=== PATIENT | female | born 1975 | race African-American/Black ===

== ENCOUNTER 2017-03-13 10:04 | Inpatient (IN) ==
[2017-03-13] MEDS ORDERED: ZOFRAN ODT PO ONE (10:48)
[2017-03-13 12:01] LABS: BASO% 0.1 % (0.0-0.8); HEMATOCRIT 41.4 % (37.0-47.0); HEMOGLOBIN 13.8 g/dL (12.0-16.0); LYMPH# 0.88 X1000 (1.2-3.4); LYMPH% 7.3 % (20.5-51.1); MANUAL DIFF NEEDED? YES; MCH 26.5 PG (27-31); MCHC 33.3 g/dL (33-37); MCV 79.6 FL (81-99); MONO# 0.07 X1000 (0.11-0.59); MONO% 0.6 % (1.7-9.3); MPV 11.6 FL (7.4-10.4); PLT 335 X1000 (130-400)
[2017-03-13 12:18] LABS: ALBUMIN 4.4 g/dL (3.5-5.0); CALCIUM 9.7 mg/dL (8.8-10.2); POTASSIUM 4.1 mmol/L (3.5-5.1); TOTAL BILIRUBIN 0.28 mg/dL (0.20-1.00); TOTAL PROTEIN 8.1 g/dL (6.3-8.3)
[2017-03-13 12:44] LABS: LYMPHS 12 % (21-51); MONO 1 % (1-9)
[2017-03-13] MEDS ORDERED: NS 1,000 ML IV ONE (12:52)
[2017-03-13] MEDS ORDERED: TORADOL IV ONE (12:53)
[2017-03-13] MEDS ORDERED: PHENERGAN IM ONE (14:30)
--- NOTE | 2017-03-13 14:59 | Diag Imaging Result Doc PS360 ---
EXAM: CT ABD/PELVIS W/ IV CONT ONLY HISTORY: intractable nausea and vomiting TECHNIQUE: Dose reduction protocol COMPARISON: 07/24/2016 FINDINGS: The gallbladder has been removed. There is a [id number] sized hiatal hernia. Normal spleen, pancreas, liver, and adrenal glands. Normal enhancement of the kidneys. No hydronephrosis. Normal aorta. The urinary bladder is overly distended. No bowel obstruction. Mechanical device in the anterior subcutaneous tissues of the right lower abdomen with wires going into the midabdomen. Normal uterus. No abscess. IMPRESSION: 1.Cholecystectomy 2.Hiatal hernia 3.Matheny distended urinary bladder. No hydronephrosis. 4.No bowel obstruction. No abscess. Electronically signed by Hebert Soto 03/13/2017 2:57 PM
--- NOTE | 2017-03-13 15:44 | PROVIDER DOCUMENTATION ---
This chart was entered by Eugene Massey Scribe, acting as scribe for Dewayne Wen MD. HPI-Abdominal Pain/GI Problem - General Chief Complaint: Nausea/Vomiting Stated Complaint: VOMITING Time Seen by Provider: 03/13/17 10:17 Source: patient Allergies/Adverse Reactions: Patient Allergies Allergy/AdvReac Type Severity Reaction Status Date / Time No Known Allergies Allergy Verified 03/13/17 10:19 Home Medications: Home Medication List Medication Instructions Recorded Confirmed Last Taken Type Insulin Human Regular [Humulin R] 1 unit SUBQ DIRECTED 12/06/14 03/13/1710/28 21:00 History Promethazine [Phenergan] 25 mg IN Q6H PRN PRN #20 supp 02/11/16 03/13/17 Rx Zolpidem [Ambien] 10 mg PO HS PRN PRN #20 04/21/16 03/13/17 03/12/17 21:00 Rx Amlodipine [Norvasc] 10 mg PO DAILY #0 tablet 07/25/16 03/13/17 03/12/17 21:00 Rx Hydrocodone/APAP 10 mg/325 mg 1 each PO Q6H PRN PRN #0 tablet 07/25/16 03/13/17 Unknown Rx [Cambria-10] Insulin Glargine [Lantus] 20 unit SUBQ QHS #0 insuln.pen 07/25/16 03/13/1703/12 21:00 Rx - History of Present Illness-ABD Nature of Presenting Problems: patient is a 41 y/o F that presents with 24 hours of abdominal pain with n/v. denies fever/chills, diarrhea, or chest pain. Long standing history of GI issues and diabetes. Abdominal Pain Onset Location: reports: generalized abdomen Quality of Pain: reports: aching, sharp Severity in ED: reports: moderate Onset/Duration: reports: abrupt, last night Timing: reports: still present, constant, getting worse Activities at Onset: reports: none Modifying Factors: improves with: nothing Associated Symptoms: reports: nausea, vomiting, weakness. denies: back/neck pain, chest pain, diarrhea, fever/chills, genitourinary problems, headaches, shortness of breath Similar Symptoms Previously?: Yes Recently seen or treated by another doctor?: No Review of Systems - Adult - REVIEW OF SYSTEMS - ADULT Constitutional: denies: chills, fever Eyes: reports: no symptoms reported Ears, Nose, Mouth & Throat: reports: no symptoms reported Cardiovascular: denies: chest pain, palpitations, syncope Respiratory: denies: cough, shortness of breath, wheezing Gastrointestinal: reports: abdominal pain, nausea, vomiting. denies: hematemesis, rectal bleeding Genitourinary: denies: dysuria, frequency, hematuria, urgency Musculoskeletal: reports: muscle weakness. denies: joint pain, joint swelling Integumentary: reports: no symptoms reported Neurological: reports: no symptoms reported Psychiatric: reports: no symptoms reported Endocrine: reports: no symptoms reported Hematologic/Lymphatic: reports: no symptoms reported Allergic/Immunologic: reports: no symptoms reported All Other Systems: Reviewed and Negative Past History - Adult - PAST MEDICAL HISTORY-ADULT Review of Records: reports: Old Records Reviewed, Nursing Assessment Review, Medications Reviewed Cardiovascular: reports: HTN, hyperlipidemia Gastrointestinal: reports: GERD (with esophagitis and stenosis), GI bleed, ulcer , other (diabetic gastroparesis, erosive gastritis and esophagitis) Genitourinary: reports: other (ammenorrhea for 1 year) Neurological: reports: other (DM neuropathy) Psychiatric: reports: anxiety, depression Endocrine/Immune: reports: anemia, Diabetes Additional History: frequent ER visits - PRIOR SURGERIES/PROCEDURES Surgical/Procedure History: reports: cholecystectomy, indwelling device ( Portacath), other (gastric stimulator) - IMMUNIZATION STATUS Childhood Immunizations: See Nurse Assessment Flu Vaccine: See Nurse Assessment - FAMILY HISTORY Family History: reviewed, not pertinent - SOCIAL HISTORY Smoking: non-smoker Living Situation: family Physical Exam-General - PHYSICAL EXAM-ADULT Initial Vital Signs Reviewed: Yes - CONSTITUTIONAL General Appearance: alert, moderate distress, anxious - EYES Eyes: PERRL/EOMI, pink conjunctivae - HEAD, EARS, NOSE, MOUTH & THROAT HENMT: normocephalic/atraumatic, TMs normal, other (dry oral mucosa) - NECK Neck: full range of motion, normal inspection - RESPIRATORY Respiratory: lungs clear, normal breath sounds, no respiratory distress, no accessory muscle use - CARDIOVASCULAR Cardiovascular: no murmur, tachycardia - GASTROINTESTINAL (ABDOMEN) Abdominal Exam: normal bowel sounds, soft, no organomegaly, no pulsatile mass, tenderness (generalized) - MUSCULOSKELETAL Extremity: no pedal edema, normal capillary refill - SKIN Integumentary: normal color, warm/dry - NEUROLOGIC Neurologic: staff command and control officer II-XII nml as tested, no motor/sensory deficits - PSYCHIATRIC Psych/Mental Status: oriented x 3, anxious Progress - PLAN OF CARE/RESULTS Progress/Plan/Lab Results: Vital Signs - 8 hr 03/13/17 10:06 Temperature 97.5 F L Pulse Rate 109 H Respiratory Rate 16 Blood Pressure 186/118 O2 Sat by Pulse Oximetry 100 Orders Category Date Time Status CT ABD/PELVIS W/ IV CONT ONLY [CT] Stat Exams 03/13/17 11:22 Ordered AMYLASE [CHEM] Stat Lab 03/13/17 10:48 Uncollected CBC WITH DIFF [HEME] Stat Lab 03/13/17 10:48 Uncollected COMPREHENSIVE METABOLIC PANEL [CHEM] Stat Lab 03/13/17 10:48 Uncollected LIPASE [CHEM] Stat Lab 03/13/17 10:48 Uncollected Ondansetron Odt [Zofran Odt] Med 03/13/17 10:48 Discontinued 8 mg PO NOW ONE Vital Signs Temp Pulse Resp BP Pulse Ox 03/13/17 14:27 116 H 19 183/117 99 03/13/17 10:06 97.5 F L 109 H 16 186/118 100 No Known Allergies Allergy (Verified 03/13/17 10:19) Insulin Human Regular [Humulin R] 1 unit SUBQ DIRECTED 12/06/14 Promethazine [Phenergan] 25 mg IN Q6H PRN PRN #20 supp 02/11/16 Zolpidem [Ambien] 10 mg PO HS PRN PRN #20 04/21/16 Amlodipine [Norvasc] 10 mg PO DAILY #0 tablet 07/25/16 Hydrocodone/APAP 10 mg/325 mg [Cambria-10] 1 each PO Q6H PRN PRN #0 tablet Insulin Glargine [Lantus] 20 unit SUBQ QHS #0 insuln.pen 07/25/16 Laboratory 03/13/17 03/13/17 03/13/17 11:35 11:35 11:35 WBC 12.04 H RBC 5.20 Hgb 13.8 Hct 41.4 MCV 79.6 L MCH 26.5 L MCHC 33.3 RDW Std Deviation 15.3 H Plt Count 335 MPV 11.6 H Immature Gran % (Auto) 0.0 Neut % (Auto) 92.0 H Lymph % (Auto) 7.3 L [place] % (Auto) 0.6 L Eos % (Auto) 0.0 Baso % (Auto) 0.1 Immature Gran # (Auto) 0.00 Neut # (Auto) 11.08 H Lymph # (Auto) 0.88 L [place] # (Auto) 0.07 L Eos # (Auto) 0.00 Baso # (Auto) 0.01 Segmented Neutrophils 87 H Lymphocytes 12 L Monocytes 1 Sodium 149 H Potassium 4.1 Chloride 108 H Carbon Dioxide 21 L Anion Gap 20 BUN 24 H Creatinine 1.7 H Estimated GFR/1.73 m2 40 BUN/Creatinine Ratio 14 Glucose 300 H POC Glucose Calculated Osmolality 311 Calcium 9.7 Total Bilirubin 0.28 AST 19 ALT 10 Alkaline Phosphatase 163 H Total Protein 8.1 Albumin 4.4 Globulin 3.7 Albumin/Globulin Ratio 1.2 Amylase 757 H Lipase 23 Serum , Qual NEGATIVE 03/13/17 10:44 WBC RBC Hgb Hct MCV MCH MCHC RDW Std Deviation Plt Count MPV Immature Gran % (Auto) Neut % (Auto) Lymph % (Auto) [place] % (Auto) Eos % (Auto) Baso % (Auto) Immature Gran # (Auto) Neut # (Auto) Lymph # (Auto) [place] # (Auto) Eos # (Auto) Baso # (Auto) Segmented Neutrophils Lymphocytes Monocytes Sodium Potassium Chloride Carbon Dioxide Anion Gap BUN Creatinine Estimated GFR/1.73 m2 BUN/Creatinine Ratio Glucose POC Glucose 272 H Calculated Osmolality Calcium Total Bilirubin AST ALT Alkaline Phosphatase Total Protein Albumin Globulin Albumin/Globulin Ratio Amylase Lipase Serum , Qual Result Diagrams: 03/13/17 11:35 03/13/17 11:35 - CT/MRI 1 CT Study: Abdomen, Pelvis Impression: Abnormal CT Results: hital hernia,overly distended urinary bladder, cholecystectomy - CONSULTS/PCP/HOSPITALIST Notification #1 *Consult/PCP/Hospitalist*: Time Discussed: 15:42 Consult Disposition: Will see in ED, Admit Departure - Departure Date of Disposition Decision: 03/13/17 Time of Disposition Decision: 15:42 DIAGNOSIS: Gastroparesis, Intractable vomiting, Volume depletion, Hyperamylasemia Disposition: ADMITTED INPATIENT 09 Certified Medical Emergency: Emergent Condition: Stable Referrals and Follow-Ups: None,PCP [Primary Care Provider] - - Critical Care Note This patient required my direct & personal management of CC.: No Attestation - Physician/ GAUDENCIO Attestation The physician spent face to face time with patient:: Yes Advanced Practice Provider documentation review:: The physician spent face to face time with this patient and agrees with all MLP documentation, treatment, and medical decision making by the MLP. See provider notes for further information. This chart was documented by the indicated scribe, (Eugene Massey, Scribe) and accurately reflects the services I performed and decisions made by me, Dewayne Wen MD, as attested by the provider's signature.
[2017-03-13] MEDS ORDERED: PROTONIX 80 MG in NS 80 ML IV ONE (16:45)
[2017-03-13] MEDS ORDERED: PROTONIX 80 MG in NS 80 ML IV SCH (16:45)
[2017-03-13] MEDS ORDERED: ERYTHROMYCIN 250 MG in NS 150 ML IV ONE (16:46)
[2017-03-13] MEDS ORDERED: MORPHINE IV ONE (17:01)
[2017-03-13 17:23] LABS: URINE MICRO REVIEW NEEDED? NO; URINE SOURCE CATH
[2017-03-13 17:36] LABS: BILIRUBIN URINE NEGATIVE (NEGATIVE); BLOOD URINE SMALL (NEGATIVE); COLOR YELLOW; GLUCOSE URINE >1000 mg/dL (NEGATIVE); LEUKOCYTES URINE NEGATIVE (NEGATIVE); NITRITE URINE NEGATIVE (NEGATIVE); PH URINE 6.5; PROTEIN URINE 600 mg/dL (NEGATIVE); SP GRAVITY URINE 1.023; TURBIDITY URINE CLEAR (CLEAR); UR EPITHELIAL CELLS >10 /HPF (<10); URINE BACTERIA NEGATIVE /HPF; URINE CULTURE NEEDED? YES; UROBILINOGEN URINE NORMAL (NORMAL)
[2017-03-13] MEDS: REGLAN IV ONE (17:45)
[2017-03-13] MEDS: NS 1,000 ML IV SCH (17:48)
[2017-03-13] MEDS: ROCEPHIN 1 GM/NS 1 GM/50 ML IVPB IV SCH (17:50)
--- NOTE | 2017-03-13 18:08 | HISTORY AND PHYSICAL ---
PRIMARY CARE PHYSICIAN: Dr. Koo with the [facility]. HAZARDOUS MATERIAL TECHNICIAN: Franny Lewis MD. PRESENTING COMPLAINT: Nausea and vomiting. HISTORY OF PRESENTING COMPLAINT: Ms. Bobby is a 41-year-old, female who is very well known to our service. Patient was discharged from the hospital on 2016 after she was treated for DKA, acute kidney injury and UTI. Patient refers to have been relatively stable until 3 days ago when she started having abdominal discomfort, nausea, and vomiting which has been progressively getting worse to the point that patient is completely not tolerating anything p.o. since this morning. After vomiting multiple times she realized that whatever is coming out is bloody. Patient therefore decided to come to the emergency department where she was evaluated and we were requested to admit her because of p.o. intolerance and GI bleed. PAST MEDICAL HISTORY: 1. Severe diabetic gastroparesis. Patient has a pacemaker. 2. Poorly controlled insulin-dependent diabetes mellitus. 3. Hypertension. 4. Diabetic neuropathy. PAST SURGICAL HISTORY: 1. Cholecystectomy. 2. Gastric stimulator. 3. Port-a-Cath removal. FAMILY HISTORY: Diabetes. SOCIAL HISTORY: Patient denies any tobacco or alcohol use. Occasional marijuana user. ALLERGIES: None. HOME MEDICATIONS: 1. Insulin sliding scale. 2. Amlodipine 10 mg daily. 3. Insulin glargine 20 units subcutaneous daily. REVIEW OF SYSTEMS: A 14-point review of systems was conducted with the patient and unremarkable except for what is stated in the HPI. PHYSICAL EXAMINATION: VITAL SIGNS: Blood pressure is 183/117, pulse 116, respiration 19, temperature 97.5 degrees. GENERAL EXAMINATION: Ms. Bobby is a 41-year-old, female. She is in bed. HEENT: Mucosa is pink and moist. Anicteric. Acyanotic. NECK: Supple. I did not see any JVD. No carotid bruit. CHEST: Good air entry bilaterally. No crepitations. No rhonchi. No accessory muscle use. CARDIOVASCULAR: Slightly tachycardic but no murmurs, no rubs, no gallops. ABDOMEN: Soft. Mildly tender in the epigastrium. Bowel sounds are reduced. There is a pacemaker generator at the lower left anterior abdominal wall. EXTREMITIES: No pedal edema. CENTRAL NERVOUS SYSTEM: Patient is alert and oriented. No focal neurological deficit. The patient's sensorium is intact. Motor power is 5/5 in all extremities. There is no focal neurological deficit. Cranial nerves 2-12 have been grossly examined and they are unremarkable. LABORATORY DATA: WBC is 12.04, hemoglobin is 13.8, platelet count of 335,000, 87% of bands on peripheral smear. Sodium is 149, potassium is 4.1, chloride is 108, bicarbonate is 21, creatinine 1.7. Glucose is 300, amylase 757. test is negative. DIAGNOSTIC STUDIES: CT scan of the abdomen and pelvis was done which shows cholecystectomy, hiatal hernia, overly distended urinary bladder, no hydronephrosis, no bowel obstruction and no abscess. ASSESSMENT: Ms. Bobby is a 41-year-old, [place] female with multiple admissions to the hospital because of GI related symptoms who came in because of nausea and vomiting which is intractable and has been complicated with some coffee ground emesis. ASSESSMENT: 1. Intractable nausea and vomiting. 2. History of severe gastroparesis. 3. GI bleed likely due to underlying as well as esophagitis. Last EGD done by Dr. Lewis on 04/15/2016 and it showed severe esophagitis and some erosive gastritis. 4. Acute on chronic kidney disease. 5. Hyperamylasemia likely due to the current GI related issues. CT scan did not show any pancreatitis. I think if the gastroparesis gets controlled, the amylase will also get better. 6. Uncontrolled diabetes mellitus. We will continue the patient on sliding scale. 7. Volume depletion. We will start the patient on IV fluids. 8. Bladder retention. Patient does not have any symptoms which is indicative of probably underlying autonomic neuropathy from diabetes mellitus. We will in and out catheterize the patient, send a urine for analysis and reflex culture. Put the patient on oxybutynin when she is able to tolerate p.o. In general, we are going to keep the patient on the medical floor, keep her NPO, put her on PPI drip on schedule, erythromycin and Reglan, adequate hydration, consult GI and give further recommendations during hospital course. cc: MD SYDNEE John
[2017-03-13] MEDS ORDERED: APRESOLINE IV PRN (18:30)
[2017-03-13] MEDS: SODIUM CHLORIDE 0.9% INJ PRN (20:40)
[2017-03-13] MEDS: PHENERGAN IV PRN (20:40)
[2017-03-13] MEDS ORDERED: INSULIN PEN NEEDLES ONE (21:28)
[2017-03-13] MEDS: LANTUS SUBQ SCH (21:48)
[2017-03-13] MEDS: HUMULIN R SUBQ SCH (21:49)
[2017-03-14] MEDS: ATIVAN IV PRN ×2 (00:17→23:24)
[2017-03-14] MEDS: ERYTHROMYCIN 250 MG in NS 150 ML IV SCH ×3 (02:34→18:02)
[2017-03-14] MEDS: NS 1,000 ML IV SCH (04:10)
[2017-03-14] MEDS: PHENERGAN IV PRN ×2 (04:10→10:51)
[2017-03-14 05:58] LABS: MANUAL DIFF NEEDED? NO
[2017-03-14 06:09] LABS: EOS# 0.01 X1000 (0.0-0.7); EOS% 0.1 % (0.0-10.0); HEMATOCRIT 38.7 % (37.0-47.0); HEMOGLOBIN 12.7 g/dL (12.0-16.0); IMM GRAN# 0.02 X1000 (0.0-0.04); IMM GRAN% 0.2 % (0.0-0.5); LYMPH# 0.97 X1000 (1.2-3.4); LYMPH% 8.5 % (20.5-51.1); MCH 26.7 PG (27-31); MCHC 32.8 g/dL (33-37); MCV 81.3 FL (81-99); MONO# 0.84 X1000 (0.11-0.59); MONO% 7.4 % (1.7-9.3); NEUT% 83.8 % (42.2-75.2); PLT 332 X1000 (130-400); RBC 4.76 XMIL (4.2-5.4)
[2017-03-14 06:14] LABS: INR 1.06; PROTIME 11.2 Seconds (9.2-11.7)
[2017-03-14 06:31] LABS: ALBUMIN 3.5 g/dL (3.5-5.0); CALCIUM 8.4 mg/dL (8.8-10.2); MAGNESIUM 2.3 mg/dL (1.5-2.7); POTASSIUM 3.7 mmol/L (3.5-5.1); TOTAL BILIRUBIN 0.32 mg/dL (0.20-1.00)
[2017-03-14] MEDS: HUMULIN R SUBQ SCH ×4 (06:34→23:24)
[2017-03-14] MEDS: SODIUM CHLORIDE 0.9% INJ PRN (10:52)
[2017-03-14] MEDS ORDERED: SODIUM CHLORIDE 0.9% INJ SCH (15:30)
[2017-03-14] MEDS ORDERED: PROTONIX IV SCH (15:30)
--- NOTE | 2017-03-14 15:55 | PROGRESS NOTE ---
DATE: 03/14/2017 SUBJECTIVE: Still nauseous. There is a couple small teaspoon kind of areas in her emesis basin, they are kind of yellowish greenish colored. GI. Patient still nauseous but she does want try to take in some liquids so we will go ahead and process that. OBJECTIVE: Vital signs: Blood pressure 125/72, heart rate 90, respiratory 18, temperature 98.6 degrees. Cardiovascular: Regular rate and rhythm. Pulmonary: Bilateral breath sounds. Clear to auscultation. GI: Soft, nontender, nondistended. Bowel sounds are positive. LABORATORY DATA: White count 11, hemoglobin and hematocrit 12 and 38, platelets of 332,000. Sodium is 153, BUN, creatinine are 38 and 2.4, glucose is 263 . PROBLEM LIST: 1. Protracted nausea, vomiting, gastroparesis. We will continue Reglan. I think she is on erythromycin even and will continue to follow. 2. Gastrointestinal bleed. Will continue PPI although hemoglobin and hematocrit is stable and monitor closely. Dr. Lewis will evaluate tomorrow. 3. Acute kidney injury. She had some bladder retention issues for which I thought she had Green placed but her kidney function is it has been this high before, it is usually 1.5- 1.9 so it is a little higher today. We will keep an eye on her I's and O's. 4. Hypernatremia. We will continue fluids and follow. She is on half-normal saline at this point just because of her relative hypernatremia. We will continue monitor. 5. Diabetes. Will continue her Lantus and follow closely. I am going to maintain her on the Reglan for the time being. DISPOSITION: Pending her clinical course. Will continue to follow very closely. cc: Jermain Gregory MD
[2017-03-14] MEDS: 1/2 NS 1,000 ML IV SCH (16:45)
[2017-03-14] MEDS: REGLAN IV SCH (16:45)
[2017-03-14] MEDS: PEPCID IV SCH (17:25)
--- NOTE | 2017-03-14 17:56 | CONSULTATION ---
DATE OF CONSULTATION: 03/14/2017 CONSULTING PHYSICIAN: Larry Hernandez MD REASON FOR CONSULT: Gastroparesis. HISTORY: This patient is well known to our service. She has followed with Dr. 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 She has a history of diabetic gastroparesis, currently has a gastric pacemaker in place. She is being followed by [facility]. She presented to the hospital with nausea, vomiting. She tells me she has been doing well until yesterday she had a sudden onset of nausea and has been vomiting since then until she came to the emergency room and was treated. She denies any other GI symptoms. She has not had any abdominal pain or abdominal cramps. She did not run any fever or chills. She has not noticed any hematemesis or coughing or emesis. Her appetite has been poor after that. She has not been able to tolerate liquids. She has been able to tolerate sips of water though. She denies any dysphagia or odynophagia. She denies any constipation or diarrhea. Has not any blood or mucus in her stool. PAST MEDICAL HISTORY: Significant for diabetic gastroparesis status post gastric pacemaker. Diabetes, history of hypertension, depression. She also carries a diagnosis of peptic ulcer disease, gastroesophageal reflux disease, erosive esophagitis, Viky esophagitis and erosive gastroduodenitis. PAST SURGICAL HISTORY: She has a gastric pacemaker placed. Cholecystectomy. She has had a PEG tube placed earlier. Gastrojejunostomy tube placed earlier. MEDICATION: Prior to hospitalization, she has been on Ambien, Phenergan, Humulin R, Lantus, hydrocodone and Norvasc. ALLERGIES: No drug allergies. SOCIAL HISTORY: She does not smoke. She claims she does not drink and claims she has not had marijuana. She she lives by herself. FAMILY HISTORY: Noncontributory. REVIEW OF SYSTEMS: As per HPI as above. PHYSICAL EXAMINATION: General: A very pleasant female. She is lying in bed and resting comfortably on her side. Vitals: Temperature 98.7 degrees, pulse was 100 per minute, breathing at 20, blood pressure 152/77. She is 190 pounds. She is 5 feet 4 inches tall. HEENT: Head is atraumatic, normocephalic. Eyes: Conjunctivae normal. Sclerae anicteric. Nares are patent. No discharge. Mouth: Buccal mucosa is moist. Throat is normal. Neck: Supple no lymphadenopathy or thyromegaly. Chest: Bilaterally symmetrical. It is moving with respirations. Breath sounds audible bilaterally. No rhonchi or crepitations could be heard. Heart: S1 S2 audible. No murmur could be appreciated. Abdomen: Has got the gastric pacemaker placed on the right side of the umbilicus. Otherwise, abdomen is soft. It is nontender. I could not appreciate mass or visceromegaly. No ascites noted. Bowel sounds are audible. Extremities: No pedal edema, cyanosis or clubbing was noted. CUSTOMER RETENTION REPRESENTATIVE: Grossly intact. No sensory or motor deficit. LABORATORY: Reviewed, which showed WBC 11.3, hemoglobin 12.7, hematocrit 38.7, MCV 81.3, platelets 332,000. PT 11.2, INR 1.06. Sodium 153, potassium 3.7, chloride 115, bicarb is 20, BUN is 38, creatinine 2.4, glucose 263. Transaminases are normal. Urinalysis negative for urinary infection or UTI. IMPRESSION: This is a 41-year-old, female with known history of diabetic gastroparesis and uncontrolled diabetes, has presented once again with the same symptoms of nausea, vomiting. She has a gastric pacemaker in place, but despite that she presents with similar symptoms for gastroparesis. Although she denies having marijuana now, however, if she has done that and she is not admitting to it, cannabinoids induced vomiting is also a possibility other than gastroparesis. She has responded well to symptomatic treatment. She is currently on erythromycin and that has worked well for her. Since admission, she has had only 1 episode of emesis this morning which was clear and frothy liquid. Other than that, she is doing well. Symptoms have improved. I would continue the same at this point, and after reemphasizing to her that cannabinoid induced vomiting could be a possibility here as well and she should avoid using marijuana. Continue hydration. Her electrolytes show that she may be dehydrated. We will recheck her electrolytes and adjust fluids accordingly. Dr. Lewis will be the most available in the morning to bulk picker the case. cc: Raghav Ruggiero MD
[2017-03-14] MEDS: ROCEPHIN 1 GM/NS 1 GM/50 ML IVPB IV SCH (18:03)
[2017-03-14] MEDS: REGLAN IV ONE (18:07)
[2017-03-14] MEDS: LANTUS SUBQ SCH (23:24)
[2017-03-15] MEDS: SODIUM CHLORIDE 0.9% INJ PRN ×2 (00:15→19:14)
[2017-03-15] MEDS: PHENERGAN IV PRN ×3 (00:15→19:14)
[2017-03-15] MEDS: PEPCID IV SCH ×2 (02:54→16:40)
[2017-03-15] MEDS: ERYTHROMYCIN 250 MG in NS 150 ML IV SCH ×3 (02:54→17:54)
[2017-03-15] MEDS: REGLAN IV SCH ×2 (02:54→16:38)
[2017-03-15 06:21] LABS: HEMATOCRIT 33.5 % (37.0-47.0); HEMOGLOBIN 10.7 g/dL (12.0-16.0); MCHC 31.9 g/dL (33-37); MCV 84.4 FL (81-99); MPV 11.7 FL (7.4-10.4); RBC 3.97 XMIL (4.2-5.4)
[2017-03-15 06:25] LABS: POTASSIUM 3.8 mmol/L (3.5-5.1)
[2017-03-15] MEDS: 1/2 NS 1,000 ML IV SCH ×3 (06:46→23:15)
[2017-03-15] MEDS: HUMULIN R SUBQ SCH ×4 (06:47→23:14)
[2017-03-15] MEDS: ATIVAN IV PRN (08:57)
[2017-03-15] MEDS ORDERED: INSULIN PEN NEEDLES ONE (16:13)
[2017-03-15] MEDS ORDERED: LABETALOL IV PRN (16:36)
[2017-03-15] MEDS: SODIUM CHLORIDE 0.9% INJ SCH (16:40)
--- NOTE | 2017-03-15 16:56 | PROGRESS NOTE ---
DATE: 03/15/2017 SUBJECTIVE: The patient has still nausea and is requesting pain medication, specifically Dilaudid. She has had clear emesis. She reports persistent emesis but Dr. Lewis has reviewed notes and feels like she has had weight gain despite not being able to keep anything down. Weight is around 190. OBJECTIVE: Vital signs: Blood pressure 185/129, heart rate 102, respiratory 16, temperature 98.6 degrees. Cardiovascular: Regular rate and rhythm. Pulmonary: Bilateral breath sounds. Clear to auscultation. GI: Soft, nontender, nondistended. Bowel sounds are positive. Extremities: No clubbing or cyanosis. Lymphatics: No peripheral edema. Neurological: Nonfocal. LABORATORY DATA: Her white count is normal 10, hemoglobin and hematocrit 10 and 33, platelets 264,000. Chemistry: Her BUN and creatinine are down 36 and 2. That is down from 38 and 2.4. PROBLEM LIST: 1. Intractable nausea and vomiting secondary to gastroparesis versus drug related. Will continue Reglan. She is on erythromycin, p.r.n. medications, and follow. 2. Questionable gastrointestinal bleed. We will continue PPI. Follow hemoglobin and hematocrit. Dr. Lewis ordered a barium upper GI series for tomorrow. 3. Acute kidney injury. Her kidney function is improving with hydration. Continue to monitor closely. 4. Hypernatremia. This appears to be overall resolved. 5. Diabetes. Will continue Lantus sliding scale, medications, and follow. I will go ahead and check a urine drug screen to evaluate for possible underlying marijuana use which has been linked to cyclical nausea and emesis syndrome. At this point, she is on antibiotics but her testing has not revealed gross evidence of UTI. We will continue to monitor. I think we will probably hold further antibiotics for the time being. cc: Jermain Gregory MD
[2017-03-15 17:50] LABS: UR AMPHETAMINES QUAL NONE DETECTED (NONE DETECT); UR BARBITUATES QUAL NONE DETECTED (NONE DETECT); UR BENZODIAZEPIN QUAL NONE DETECTED (NONE DETECT); UR CANNABINOIDS QUAL NONE DETECTED (NONE DETECT); UR COCAINE QUAL NONE DETECTED (NONE DETECT); UR METHADONE QUAL NONE DETECTED (NONE DETECT); UR OPIATES QUAL NONE DETECTED (NONE DETECT); UR OXYCODONE QUAL NONE DETECTED (NONE DETECT); UR PCP QUAL NONE DETECTED (NONE DETECT)
[2017-03-15] MEDS: LANTUS SUBQ SCH (20:07)
[2017-03-15] MEDS: NUBAIN IV PRN (20:13)
[2017-03-16] MEDS: NUBAIN IV PRN ×6 (00:09→23:14)
[2017-03-16] MEDS: REGLAN IV SCH ×3 (02:02→15:41)
[2017-03-16] MEDS: ERYTHROMYCIN 250 MG in NS 150 ML IV SCH ×3 (02:02→18:10)
[2017-03-16] MEDS: PEPCID IV SCH ×3 (02:03→15:49)
[2017-03-16] MEDS: PHENERGAN IV PRN ×4 (02:05→21:50)
[2017-03-16] MEDS: HUMULIN R SUBQ SCH ×4 (06:13→21:38)
[2017-03-16 06:33] LABS: HEMATOCRIT 35.8 % (37.0-47.0); HEMOGLOBIN 11.9 g/dL (12.0-16.0); MCH 26.8 PG (27-31); MCHC 33.2 g/dL (33-37); MCV 80.6 FL (81-99); MPV 11.5 FL (7.4-10.4); RBC 4.44 XMIL (4.2-5.4)
[2017-03-16 07:04] LABS: CALCIUM 8.1 mg/dL (8.8-10.2); POTASSIUM 3.7 mmol/L (3.5-5.1)
[2017-03-16] MEDS: SODIUM CHLORIDE 0.9% INJ PRN ×2 (08:45→15:36)
--- NOTE | 2017-03-16 08:59 | Diag Imaging Result Doc PS360 ---
EXAM: GI SERIES WITH BA SWALLOW INDICATION: dysphagia TECHNIQUE: COMPARISON: 03/03/2015 FINDINGS: Similar to the previous study, there is irregular mucosa involving the distal esophagus, which is narrowed. This is concerning for Stinson's esophagus. Underlying neoplasm cannot be excluded. There is also suggestion of a small hiatal hernia. Gastroesophageal reflux was witnessed during the study. Gastric rugal folding patterns are grossly unremarkable. No well-defined ulceration or filling defect can be identified involving the stomach. There are neural stimulator leads associated with the antrum. During the study, no contrast passed into the duodenum. IMPRESSION: 1.Irregular distal esophageal mucosa with long segment stricturing that is similar to the previous study. This is worrisome for Stinson's esophagus. Underlying neoplasm cannot be excluded. 2.Small hiatal sliding hernia. 3.Gastroesophageal reflux. 4.No passage of barium from the stomach into the duodenum during the study suggesting delayed gastric emptying. Electronically signed by Vijay Zapata 03/16/2017 8:57 AM
[2017-03-16] MEDS: 1/2 NS 1,000 ML IV SCH ×2 (15:30→19:26)
[2017-03-16] MEDS: SODIUM CHLORIDE 0.9% INJ SCH (15:49)
[2017-03-16] MEDS ORDERED: PROTONIX IV SCH (16:45)
--- NOTE | 2017-03-16 17:11 | PROGRESS NOTE ---
DATE: 03/16/2017 SUBJECTIVE: Patient has no focal complaints. OBJECTIVE: Vital Signs: Blood pressure 197/116, heart rate 128, respiratory rate 14, temperature degrees to 97% on room air. Cardiovascular: Regular rate and rhythm. Pulmonary: Bilateral breath sounds. Clear to auscultation. GI: Soft, nontender, nondistended. Bowel sounds are positive. Extremities: No clubbing or cyanosis. Lymphatics: No peripheral edema. Neurological: Nonfocal. LABORATORY DATA: White count is normal. Hemoglobin and hematocrit 11 and 35, platelets normal. Creatinine is down to 1.7 which is closer to baseline. PROBLEM LIST: 1. Severe gastroparesis, nausea, vomiting. Her upper GI series showed stricture so she may end up needing dilation and EGD per Dr. Lewis. I do not think that is going to happen today. It is almost 5 p.m., so I am going to go ahead and give her some clears and continue her regular medications. Dr. Lewis will re-evaluate her and see if she needs further adjustment. NPO after midnight. 2. Acute kidney injury. She is back to baseline. We will continue to monitor her. 3. Diabetes. Appears to be fairly well controlled. 4. Hypertension is not controlled, but she has not been getting her regular medications. I am going to resume her Norvasc and we may have to adjust her medicines further. She is on some p.r.n. medications. 5. Disposition. Pending tolerating p.o. diet without difficulty. cc: Jermain Gregory MD
[2017-03-16] MEDS: NORVASC PO SCH (18:10)
[2017-03-16] MEDS: ATIVAN IV PRN (21:05)
[2017-03-16] MEDS: LANTUS SUBQ SCH (21:39)
[2017-03-17] MEDS: REGLAN IV SCH ×4 (03:12→20:58)
[2017-03-17] MEDS: ERYTHROMYCIN 250 MG in NS 150 ML IV SCH ×2 (03:12→08:58)
[2017-03-17] MEDS: PEPCID IV SCH (03:13)
[2017-03-17] MEDS: ATIVAN IV PRN (03:18)
[2017-03-17] MEDS: 1/2 NS 1,000 ML IV SCH ×2 (03:21→18:57)
[2017-03-17 06:17] LABS: HEMATOCRIT 31.2 % (37.0-47.0); HEMOGLOBIN 10.3 g/dL (12.0-16.0); MCH 27.2 PG (27-31); MCV 82.5 FL (81-99); MPV 11.8 FL (7.4-10.4); RBC 3.78 XMIL (4.2-5.4)
[2017-03-17] MEDS: NUBAIN IV PRN ×5 (06:25→21:05)
[2017-03-17 06:38] LABS: MAGNESIUM 1.8 mg/dL (1.5-2.7)
[2017-03-17 06:40] LABS: CALCIUM 7.7 mg/dL (8.8-10.2); POTASSIUM 3.4 mmol/L (3.5-5.1)
[2017-03-17] MEDS ORDERED: DIPRIVAN 1% ONE ×2 (07:54→08:31)
[2017-03-17] MEDS ORDERED: FENTANYL ONE (07:55)
[2017-03-17] MEDS ORDERED: XYLOCAINE-MPF 2% ONE (07:55)
[2017-03-17] MEDS: HUMULIN R SUBQ SCH ×4 (08:05→21:00)
[2017-03-17] MEDS: PHENERGAN IV PRN ×3 (08:58→20:35)
[2017-03-17] MEDS: NORVASC PO SCH (08:58)
[2017-03-17] MEDS: SODIUM CHLORIDE 0.9% INJ SCH ×2 (08:58→14:22)
--- NOTE | 2017-03-17 10:42 | Diag Imaging Result Doc PS360 ---
EXAM: US SOFT TISSUE HEAD NECK HISTORY: severe parotid gland hypertrophy TECHNIQUE: Ultrasound of the parotid glands COMMENT: The parotid glands are fairly homogeneous in echotexture. The left parotid gland is larger than the right. There are no masses. Incidental note is made of a 5 mm cyst in the midportion of the left thyroid lobe. This was also present on 11/21/2013. IMPRESSION: No evidence of parotid mass. Asymmetrical parotid hypertrophy on the left. Electronically signed by Napoleon Bearden 03/17/2017 10:39 AM
[2017-03-17] MEDS: NEXIUM IV SCH ×2 (14:20→20:59)
[2017-03-17] MEDS: SODIUM CHLORIDE 0.9% INJ PRN ×2 (14:22→20:35)
--- NOTE | 2017-03-17 16:06 | PROGRESS NOTE ---
DATE: 03/17/2017 SUBJECTIVE: Patient has no focal complaints. OBJECTIVE: Blood pressure 118/69, heart rate 85, respiratory rate 16, temperature 97.9 degrees.Cardiovascular: Regular rate and rhythm. Pulmonary: Bilateral breath sounds. Clear to auscultation. GI: Soft, nontender, nondistended. Bowel sounds are positive. Extremities: No clubbing or cyanosis. Lymphatics: No peripheral edema. Neurological: Nonfocal. LABORATORY DATA: I think it looked pretty good. Hemoglobin and hematocrit 10 and 31, platelets 224,000, white count 6.7. Potassium a little low at 3.4, creatinine 1.7. PROBLEM LIST: 1. Nausea and vomiting secondary to gastroparesis and esophageal stricture. She had a dilation today, she seems to be doing better since then. She says she is eating and not throwing up and she is able to ambulate. 2. Acute kidney injury. We will continue IV fluids and follow. 3. Diabetes. Appears to be stable. 4. Hypertension. That has improved. DISPOSITION: I think if she tolerates her diet through tomorrow she should be able to go home tomorrow without difficulty. cc: Jermain Gregory MD
--- NOTE | 2017-03-17 18:08 | PROGRESS NOTE ---
DATE: 03/17/2017 SUBJECTIVE: The patient underwent an EGD this morning with esophageal dilation. Since the dilation, she has been able to tolerate a full liquid diet and soft foods. She denies chest pain, shortness of breath. Her abdominal pain has improved significantly. On endoscopy this morning, she was found to have a midesophageal stricture at 30 cm, erosive changes from 30-35 cm, with a polypoid lesion at 34 cm. She had a large hiatal hernia from 35-40 cm. In the gastric lumen, she had erosive gastritis, 3 antral ulcers, and gastric stasis. In the duodenum, she had severe duodenitis. RECOMMENDATION: 1. Continue current medication with IV Protonix and Carafate. She will need another 12 weeks of Carafate. 2. The patient has been followed at the [facility] in [place]. Because I suspect she is going to need treatment for this esophageal lesion, I recommend that we make an outpatient appointment for the patient to be reassessed at the [facility]. My concern is that she has Stinson's esophagus and may have significant dysplastic changes in the distal esophagus. 3. She will need a repeat EGD with dilation in 4-6 weeks. 4. I would only advance her diet to a full liquid or soft food diet as we were only able to dilate to 10 mm given the amount of inflammation and oozing that was present in the distal esophagus. 5. Because she is able to tolerate her food and has minimal vomiting, it is reasonable to discharge her to home. 6. She had a parotid ultrasound today that showed severe parotid gland hypertrophy. In light of this, I would increase her Reglan to 5 mg q.6 hours to help minimize the nausea with vomiting. 7. She will need outpatient follow up with Dr. Brian Stanford at [facility] who manages her gastric pacemaker. She may need an interval dose adjustment now that her creatinine has gradually increased, limiting our ability to advance her Reglan to a higher dose. 8. We will have the patient return to the clinic in 2 weeks to assess interval progress. cc: MD Chapito Desir Jr, MD Alexis R. Penot, MD Fred Weber, MD
[2017-03-17] MEDS: CARAFATE LIQUID PO SCH (20:59)
[2017-03-17] MEDS: LANTUS SUBQ SCH (21:00)
--- NOTE | 2017-03-17 21:39 | PROGRESS NOTE ---
DATE: 03/16/2017 SUBJECTIVE: The patient states that she continues to have dysphagia with frequent nausea with vomiting. Her nausea with vomiting was less today but it persists. She had an upper GI series performed which is remarkable for stricture with possible Stinson esophagus. There was irregular mucosa in the distal esophagus and therefore mass could not be ruled out. Endoscopic evaluation was recommended. OBJECTIVE: Vital signs: On exam, her blood pressure is 197/116, pulse 128, respiration 14, temperature of 98.2 degrees. Pulmonary: Lungs are clear to auscultation with normal respiratory effort. Cardiovascular: She has a resting tachycardia with a regular rhythm. Abdomen: Reveals normoactive bowel sounds. The abdomen is soft with mild diffuse tenderness but no rebound or guarding. HEENT: She had significant parotid hypertrophy bilaterally. OBJECTIVE DATA: Reveals a hemoglobin of 11.9 with hematocrit of 35.8 and a white count of 7.43. She has 273,000 platelets. Sodium is 142, potassium 3.7, chloride 105, CO2 22, BUN 27, creatinine 1.7 with a glucose of 120 and a calcium of 8.1. IMPRESSION: 1. Nausea with vomiting. 2. Esophageal stricture. 3. Gastroparesis. 4. Parotid gland hypertrophy secondary to #1. RECOMMENDATION: 1. Will plan to perform EGD with dilation in the morning. 2. I will plan to biopsy the distal esophagus. Because of her persistent nausea with vomiting, I recommend discontinuing Pepcid and transitioning the IV Nexium 40 mg daily now that that is available. 3. I anticipate she will require Carafate following the procedure. 4. Additional recommendations to follow based on her endoscopic findings. cc: [place], [place]
--- NOTE | 2017-03-17 21:50 | OPERATIVE NOTE ---
PROCEDURE DATE: 03/17/2017 PRIMARY HOSPITALIST: Jimmy Gregory M.D. PRIMARY CARE PROVIDER: Health system primary Care INDICATION FOR PROCEDURE: 1. Nausea with vomiting. 2. Esophageal stricture. 3. Gastroparesis. PROCEDURE PERFORMED: 1. Esophagogastroduodenoscopy with biopsy. 2. Esophagogastroduodenoscopy with brushings. CONSENT: Informed consent was obtained from the patient prior to the procedure. The risks, benefits, alternatives were discussed with the patient prior to the procedure. MEDICATIONS: The patient received monitored anesthesia care. PERFORMING PHYSICIAN: Franny Lewis M.D. ASSISTANTS: 1. [facility] 2. Sherif Benavides RN. 3. Nina Zuluaga CRNA. 4. Tadeo Murray M.D. (anesthesia). COMPLICATIONS: There were no complications. ESTIMATED BLOOD LOSS: 1-2 mL. SPECIMENS REMOVED: 1. Duodenal biopsy. 2. Gastric biopsy. 3. Esophageal brushings. 4. Biopsy of the polypoid lesion at 34 cm. FINDINGS: After sedation was achieved, the upper endoscope was inserted to the third portion of the duodenum. The oropharynx is remarkable for oral thrush. It was mild compared to previous endoscopic evaluation. The hypopharynx appeared grossly normal. In the upper esophagus, the mucosa was normal. There was a tight stricture at 30 cm that prevented passage of the scope. The stricture appeared membranous and the lumen was visualized in the distance beyond the stricture. Using a balloon dilator 8-9-10 mm, the stricture was dilated to 9-10 mm. After balloon dilation, we were able to pass the scope without difficulty into the distal esophagus. There was severe ulcerations between 30-35 cm consistent with grade D erosive esophagitis. In the midst of the erosive changes in the esophagitis, there was a nodular lesion at 34 cm that spanned from 34-35 cm. The GE junction was present at 35 cm. The polypoid lesion with soft and pliable. However, after biopsy, it oozed blood. There was spontaneous hemostasis without intervention. The GE junction appeared inflamed. We were unable to discern if there was a distinct tongue of Stinson's. There were a few small scattered islands but no obvious Stinson's. However, in light of the severe inflammatory changes, one cannot rule out the presence of underlying Stinson esophagus. There is a hiatal hernia that spanned from 35-40 cm with erosive changes. In the gastric lumen, there was severe erosive gastritis in the antrum, fundus and body. There were 3 whitish base antral ulcers with no stigmata of bleeding. There was a healed scar in the midgastric body from the previous PEG site. In the fundus, there was over 200 mL of retained bilious fluids consistent with the patient's known history of gastroparesis. There was underlying erosive gastritis. The pylorus appeared grossly normal. In the 1st, 2nd and 3rd portion of the duodenum, there was severe erosive changes with marked erythema and bowel wall edema consistent with duodenitis. Biopsies were taken from the duodenal and gastric mucosa. Of note, while taking gastric biopsies, reflux of gastric content into the oral cavity was visualized. Using the scope as well as the oral section, we were able to aspirate the free flow of fluids without any evidence of aspiration. The scope was then retracted into the esophagus where the polypoid lesion at 34 cm was biopsied. Esophageal brushings of the esophageal stricture were also obtained. The lumen was then decompressed and the scope was removed without incident. IMPRESSION: 1. Mild oral thrush. 2. Esophageal stricture at 30 cm status post dilation with the balloon dilator 8 , 9 to 10 mm. 3. Grade D erosive esophagitis in the distal esophagus. 4. A polypoid lesion at 34 cm in the ulcerated esophageal mucosa. 5. Hiatal hernia. 6. Erosive gastritis. 7. Three antral ulcers with no stigmata of bleeding. 8. Healed percutaneous endoscopic gastrostomy site in the midgastric body. 9. Gastric stasis consistent with the diagnosis of gastroparesis. 10. Severe duodenitis. RECOMMENDATION: 1. Await biopsy results. 2. I would change Pepcid to IV Nexium. 3. Begin Carafate suspension 1 g p.o. 4 times a day. Because her kidney function has increased and her creatinine is now 1.7, I would limit therapy to 8 weeks. 4. Consider nystatin swish and swallow. She has a small amount of thrush that remains on her tongue. I would 1st begin oral hygiene as an inpatient. If the coating persists, then I would consider nystatin swish and swallow. 5. The patient's esophageal stricture was dilated to the point that she will be able to tolerate soft foods. I recommend a repeat dilation in 4 weeks to allow her to broaden her food choices. She has had a significant weight gain of over 40 pounds over the last few months due to her inability to eat healthier foods such as vegetables. She has emesis of vegetables but tolerates a soft high carbohydrate and calorically dense foods. She eats sweets regularly per her mother. 6. I will refer her back to [facility] to see Dr. Brian Stanford in gastroparesis pacemaker clinic. I suspect her gastric pacemaker may need an interval adjustment. 7. Although she has renal insufficiency, I would change her Reglan to 5 mg IV q.6 hours to reduce the amount of vomiting that she is doing. 8. Will have the patient return to clinic in 2 weeks to assess interval progress. [facility]
[2017-03-18] MEDS: NUBAIN IV PRN ×5 (00:47→17:18)
[2017-03-18] MEDS: CARAFATE LIQUID PO SCH ×3 (03:06→14:31)
[2017-03-18] MEDS: REGLAN IV SCH ×3 (03:07→14:33)
[2017-03-18] MEDS: SODIUM CHLORIDE 0.9% INJ PRN ×3 (03:07→14:33)
[2017-03-18] MEDS: PHENERGAN IV PRN ×3 (03:07→14:33)
[2017-03-18] MEDS: 1/2 NS 1,000 ML IV SCH ×3 (05:20→14:30)
[2017-03-18 05:28] LABS: HEMATOCRIT 29.8 % (37.0-47.0); HEMOGLOBIN 9.7 g/dL (12.0-16.0); MCH 26.9 PG (27-31); MCHC 32.6 g/dL (33-37); MCV 82.8 FL (81-99); MPV 11.7 FL (7.4-10.4); RBC 3.6 XMIL (4.2-5.4)
[2017-03-18 05:45] LABS: CALCIUM 7.7 mg/dL (8.8-10.2); POTASSIUM 3.6 mmol/L (3.5-5.1)
[2017-03-18] MEDS: HUMULIN R SUBQ SCH ×3 (07:06→17:17)
[2017-03-18] MEDS: ATIVAN IV PRN ×3 (07:45→17:17)
[2017-03-18] MEDS: NORVASC PO SCH (09:33)
[2017-03-18] MEDS: NEXIUM IV SCH (09:33)
[2017-03-18] MEDS: SODIUM CHLORIDE 0.9% INJ SCH (09:34)
[2017-03-18] MEDS ORDERED: BLISTEX MEDICATED BERRY LIP BALM TOP PRN (11:40)
[2017-03-18 16:10] VITALS: BP 122/70
[2017-03-18] MEDS ORDERED: HEPARIN ONE (17:15)
--- NOTE | 2017-04-08 22:02 | DISCHARGE SUMMARY ---
ADMISSION DATE: 03/13/2017 DISCHARGE DATE: 03/18/2017 DISCHARGE DIAGNOSES: 1. Intractable nausea and vomiting associated with gastroparesis and possible marijuana use. 2. Poorly controlled diabetes. CONSULTATIONS: Dr. Lewis. PROCEDURES: Upper GI barium swallow which showed irregular distal esophageal mucosa concerning over Stinson's. Head and neck ultrasound showed no evidence of parotid mass. EGD on the showed mild thrush, esophageal stricture, which was dilated, grade D erosive esophagitis, a polypoid lesion, erosive gastritis and antral ulcers, gastric stasis, severe duodenitis. HOSPITAL COURSE: Briefly, this is a 41-year-old patient. She is well known to our service for intractable nausea, vomiting. She was placed on IV fluids. She had a very elevated level of amylase with a normal CT scan that has been an issue with her previously. GI, Dr. Lewis, was consulted. She initially had a barium swallow which showed possible stricture. She was monitored until the and then had a dilation. Her diet was advanced. On the she had stabilized and was felt stable for discharge. DISCHARGE MEDICATIONS: [place] p.r.n., Lantus 20 daily, Reglan 5 t.i.d., Phenergan p.r.n., Carafate 1 g q.i.d., and Ambien. She will need to follow with Dr. Lewis in 2-4 weeks. Return for worsening nausea vomiting. cc: Jermain Gregory MD
== END 2017-03-18 17:49 | disposition home or self-care (01) ==
LOC: ED 10:04 → 4N 17:06 → SUATTDRO 17:06
PROVIDERS: ATTEND Internal Medicine

== ENCOUNTER 2017-03-21 19:30 | Inpatient (IN) ==
[2017-03-21] MEDS ORDERED: SODIUM CHLORIDE 0.9% INJ ONE (21:42)
[2017-03-21] MEDS ORDERED: PHENERGAN IV ONE (21:42)
[2017-03-21] MEDS ORDERED: NS 1,000 ML IV ONE (21:42)
[2017-03-21 21:48] LABS: MANUAL DIFF NEEDED? NO
[2017-03-21 21:53] LABS: BASO% 0.2 % (0.0-0.8); EOS% 0.9 % (0.0-10.0); HEMATOCRIT 35.7 % (37.0-47.0); HEMOGLOBIN 12.2 g/dL (12.0-16.0); IMM GRAN# 0.03 X1000 (0.0-0.04); IMM GRAN% 0.3 % (0.0-0.5); LYMPH# 1.52 X1000 (1.2-3.4); LYMPH% 14.4 % (20.5-51.1); MCH 26.8 PG (27-31); MCHC 34.2 g/dL (33-37); MCV 78.5 FL (81-99); MONO# 0.33 X1000 (0.11-0.59); MONO% 3.1 % (1.7-9.3); MPV 12.9 FL (7.4-10.4); NEUT% 81.1 % (42.2-75.2); PLT 280 X1000 (130-400); RBC 4.55 XMIL (4.2-5.4)
[2017-03-21 22:10] LABS: ALBUMIN 3.8 g/dL (3.5-5.0); CALCIUM 9.4 mg/dL (8.8-10.2); POTASSIUM 3.4 mmol/L (3.5-5.1); TOTAL BILIRUBIN 0.29 mg/dL (0.20-1.00); TOTAL PROTEIN 7.4 g/dL (6.3-8.3)
[2017-03-21] MEDS ORDERED: DILAUDID IV ONE (23:07)
[2017-03-21] MEDS ORDERED: NS 1,000 ML IV SCH (23:45)
[2017-03-21] MEDS ORDERED: NEXIUM IV SCH (23:45)
[2017-03-21] MEDS ORDERED: APRESOLINE IV PRN (23:45)
[2017-03-21] MEDS ORDERED: NORCO-10 PO PRN (23:45)
[2017-03-22] MEDS: ZOFRAN IV SCH ×3 (00:14→15:25)
[2017-03-22] MEDS: HUMALOG SUBQ SCH ×5 (00:20→22:23)
[2017-03-22] MEDS ORDERED: ERYTHROMYCIN 250 MG in NS 150 ML IV SCH (01:00)
[2017-03-22] MEDS: SODIUM CHLORIDE 0.9% INJ SCH (01:41)
[2017-03-22] MEDS: PHENERGAN IV PRN ×3 (04:47→16:58)
[2017-03-22] MEDS: SODIUM CHLORIDE 0.9% INJ PRN ×3 (04:48→16:58)
--- NOTE | 2017-03-22 05:01 | HISTORY AND PHYSICAL ---
PRIMARY CARE PROVIDER: Dr. Koo with the [place] system. GENERATING PLANT SUPERINTENDENT: Franny Leiws MD CHIEF COMPLAINT: Nausea and vomiting. HISTORY OF PRESENT ILLNESS: Ms. Bobby id a 41-year-old, female , very well known to our service last admitted on 03/13/2017 for nausea and vomiting. She has a history of poorly controlled diabetes mellitus and severe diabetic gastroparesis. She had recently been relatively stable until 03/13/2017 when she started having abdominal pain, nausea and vomiting. She was discharged home and states that she felt better for 2-3 days; however, today at around 1 p.m., she started having nausea and vomiting, which she could not control, as well as abdominal discomfort that got continually worsen and worse. So, she came into the emergency room. She will be admitted for her p.o. intolerance, nausea and vomiting. PAST MEDICAL HISTORY: 1. Severe diabetic gastroparesis with a gastric pacemaker. 2. Poorly controlled insulin-dependent diabetes mellitus. 3. Hypertension. 4. Diabetic neuropathy. PREVIOUS SURGICAL HISTORY: 1. Cholecystectomy. 2. Gastric stimulator. 3. Port-A-Cath placement and removal. FAMILY HISTORY: Diabetes mellitus. SOCIAL HISTORY: No tobacco or alcohol. She occasionally uses marijuana. ALLERGIES: No known drug allergies. HOME MEDICATIONS: 1. Humulin R 1 unit subcutaneous sliding scale. 2. Phenergan p.r.n. 25 mg per rectum q.6 hours. 3. Ambien 10 mg p.o. at bedtime. 4. Lincoln 10 1 q.6 hours p.r.n. 5. Lantus 20 units subcutaneously at bedtime. 6. Reglan 5 mg p.o. t.i.d. REVIEW OF SYSTEMS: Fourteen point review of systems conducted with the patient. Pertinent positives listed above in the HPI. All other systems reviewed and found to be negative. PHYSICAL EXAMINATION: VITAL SIGNS: Temperature 98.1 degrees, pulse 92, respirations 20, blood pressure 178/94, oxygen saturation 97% on room air. GENERAL: A 41-year-old, female, lying in the ER stretcher. No acute distress. Answers all questions appropriately. HEENT: Head is atraumatic, normocephalic. Pupils equal, round, react to light. Extraocular eye movement intact. Sclerae is anicteric. Conjunctivae is pink. Oral mucosa is moist. NECK: Supple. No JVD. No thyromegaly. Trachea is midline. LUNGS: Clear to auscultation bilaterally. No rhonchi, wheezes, rales. Symmetrical rise and fall respirations. CARDIOVASCULAR: S1-S2 appreciated. No murmurs, gallops, rubs. Regular rhythm. ABDOMEN: Soft, nondistended. Tender in the epigastric area. Bowel sounds decreased all 4 quadrants. She has a gastric stimulator in her left lower anterior abdominal wall. EXTREMITIES: No clubbing, cyanosis, or edema, 3+ pedal pulses bilaterally. GENITOURINARY: The patient voids, otherwise deferred. NEUROLOGICAL: Alert orient x3. No focal motor deficits are noted, otherwise nonfocal examination. LABORATORY DATA: WBC 10.54, hemoglobin 12.2, hematocrit 37.50, platelet count 280,000. Sodium 147, potassium 3.4, chloride 110, carbon dioxide 23, BUN 10, creatinine 1.5, glucose 298, amylase 363. ASSESSMENT AND PLAN: 1. Intractable nausea and vomiting secondary to diabetic gastroparesis. We will place the patient on erythromycin 250 mg IV daily. We will give IV dosing of Zofran 8 mg q.8 hours scheduled. We will give Phenergan 12.5 mg IV q.6 hours p.r.n. Resume Reglan 5 mg p.o. t.i.d. when patient resumes p.o. 2. Hypertension. Patient is not taking p.o. medications, we will use Apresoline 10 mg IV q.6 p.r.n. systolic blood pressure greater than 160. 3. Insulin-dependent diabetes mellitus. Fingerstick blood sugar before meals and at bedtime. Cover with sliding scale insulin. 4. [id number] kidney disease. Fluid bolus was given in the emergency room. We will continue IV fluids. 5. Hyperamylasemia, likely related to nausea and vomiting. With fluid hydration , this should resolve. Further recommendations per patient clinical course. Dictated by NELL Lundy for Baldemar Chin MD Seen,examined and discussed case with ANIMAL CONTROL LICENSING WORKER. Seen and examined pt;discussed case with ANIMAL CONTROL LICENSING WORKER. cc: NELL Lundy MD Jeanette Keith, MD Dr. Rodriguez ([facility]) [facility]
[2017-03-22] MEDS ORDERED: MORPHINE IV ONE (06:51)
[2017-03-22 07:02] LABS: URINE CULTURE NEEDED? NO; URINE MICRO REVIEW NEEDED? NO; URINE SOURCE CLEAN CATCH
[2017-03-22 07:08] LABS: BILIRUBIN URINE NEGATIVE (NEGATIVE); BLOOD URINE NEGATIVE (NEGATIVE); COLOR YELLOW; GLUCOSE URINE >1000 mg/dL (NEGATIVE); LEUKOCYTES URINE NEGATIVE (NEGATIVE); NITRITE URINE NEGATIVE (NEGATIVE); PH URINE 6.5; PROTEIN URINE 300 mg/dL (NEGATIVE); SP GRAVITY URINE 1.018; TURBIDITY URINE CLEAR (CLEAR); UR EPITHELIAL CELLS >10 /HPF (<10); URINE BACTERIA 1+ /HPF; URINE RBC <10 /HPF (<10); URINE WBC <10 /HPF (<10); UROBILINOGEN URINE NORMAL (NORMAL)
[2017-03-22 07:32] LABS: BASO% 0.1 % (0.0-0.8); HEMATOCRIT 35.8 % (37.0-47.0); HEMOGLOBIN 12.1 g/dL (12.0-16.0); IMM GRAN# 0.03 X1000 (0.0-0.04); IMM GRAN% 0.2 % (0.0-0.5); LYMPH# 0.77 X1000 (1.2-3.4); LYMPH% 6.2 % (20.5-51.1); MANUAL DIFF NEEDED? YES; MCH 26.7 PG (27-31); MCHC 33.8 g/dL (33-37); MONO# 0.15 X1000 (0.11-0.59); MONO% 1.2 % (1.7-9.3); MPV 11.6 FL (7.4-10.4); NEUT% 92.3 % (42.2-75.2); PLT 290 X1000 (130-400); RBC 4.53 XMIL (4.2-5.4)
[2017-03-22 07:40] LABS: CALCIUM 8.6 mg/dL (8.8-10.2); POTASSIUM 3.7 mmol/L (3.5-5.1)
[2017-03-22 07:44] LABS: LYMPHS 6 % (21-51); MONO 1 % (1-9)
[2017-03-22] MEDS: REGLAN PO SCH ×3 (09:13→16:12)
[2017-03-22] MEDS: 1/2 NS 1,000 ML IV SCH ×2 (09:17→17:04)
[2017-03-22] MEDS: DILAUDID IV PRN ×3 (15:25→22:22)
[2017-03-22 15:31] LABS: CALCIUM 8.1 mg/dL (8.8-10.2); POTASSIUM 3.2 mmol/L (3.5-5.1)
[2017-03-22] MEDS ORDERED: POTASSIUM CHLORIDE 40 MEQ/SWI 40 MEQ/100 ML IVPB IV ONE (16:41)
[2017-03-22] MEDS: LOPRESSOR IV SCH ×2 (17:09→22:30)
--- NOTE | 2017-03-22 17:23 | PROGRESS NOTE ---
DATE: 03/22/2017 SUBJECTIVE: The patient is resting comfortably in bed. She does complain of abdominal pain and nausea. OBJECTIVE: Vital Signs: Temperature 98.1, blood pressure 157/94, heart rate 99, respirations 15, O2 saturations 98% on room air. General: This is a middle-aged female, lying in bed, in no acute distress. Head: Normocephalic, atraumatic. Heart: S1, S2. Normal. Tachycardic. Lungs: Clear to auscultation bilaterally. No crackles. No rales. Abdomen: Positive bowel sounds. Soft, nontender, nondistended. Extremities: No edema. No cyanosis. No calf tenderness. Neurologic: The patient is alert and oriented x3. LABS: White blood cell count 12, hemoglobin 12, hematocrit 35, platelets 290. Sodium 141, potassium 3.2, chloride 104, CO2 of 21, BUN 13, creatinine 1.5, glucose 105. ASSESSMENT AND PLAN: 1. Severe gastroparesis. The patient is currently n.p.o. we will start the patient on IV Reglan and await further recommendations from the doper. 2. Hypertension. We will start the patient on IV Lopressor for blood pressure control while n.p.o. 3. Chronic kidney disease. Stable. 4. Diabetes mellitus type 2. Continue with sliding scale insulin coverage. 5. Deep vein thrombosis prophylaxis. Continue with sequential compression devices. cc: Debra Maravilla MD
[2017-03-22] MEDS ORDERED: DIFLUCAN 200 MG/NS 200 MG/100 ML IVPB IV ONE (19:49)
[2017-03-22] MEDS ORDERED: SODIUM CHLORIDE 0.9% INJ SCH (20:00)
[2017-03-22] MEDS: REGLAN IV SCH (20:20)
[2017-03-22] MEDS: CARAFATE LIQUID PO SCH (20:25)
[2017-03-22] MEDS: ATIVAN IV PRN (20:25)
[2017-03-22] MEDS: NEXIUM IV SCH (20:26)
--- NOTE | 2017-03-22 20:55 | CONSULTATION ---
DATE OF CONSULTATION: 03/22/2017 REFERRING PHYSICIAN: Debra Maravilla M.D. PRIMARY CARE PROVIDER: Dr. Koo at the [facility] in [place], [place]. INDICATION FOR CONSULTATION: Nausea with vomiting. HISTORY OF PRESENT ILLNESS: The patient is a 41-year-old, female who is well known to our service. She was recently admitted for nausea with vomiting secondary to diabetic gastroparesis. Her most recent hospitalization was 03/13 to 03/18/2017. She did well and was tolerating a regular diet at the time of discharge. Her hospital course was remarkable for severe dysphagia. She underwent an EGD an dilation on 03/17/2017. She was found to have a midesophageal stricture which required dilation. Her esophageal stricture was dilated to 10 mm using a balloon dilator. Because there was severe grade D erosive esophagitis as well as Viky esophagitis, her esophagus was not dilated further. We were able to obtain biopsies. The results are currently pending. In addition, she was found to have oral thrush, Viky esophagitis, severe erosive reflux esophagitis in the distal esophagus, and a nodular mass in the distal esophagus that was biopsied. In addition, she had retained gastric secretions consistent with her known history of gastroparesis. There was a hiatal hernia, severe erosive gastritis, 3 antral ulcers, healed scar in the mid gastric body from a previous PEG and severe erosive changes in the duodenum. Biopsies and brushings were obtained. Specifically, we obtained a biopsy of the polypoid lesion in the distal esophagus. The biopsy results are currently pending. Postprocedure on the morning of discharge, the patient was tolerating her diet with minimal nausea with vomiting. Of note, on exam, the patient was also noted to have severe parotid hypertrophy due to all of the vomiting. She was discharged to home and did well for 2 days. She then developed nausea with vomiting. She was admitted for further evaluation due to the recurrence of her nausea with vomiting. Her mother reports that the patient has been noncompliant with her medications and with her diet. The patient typically eats dinner and then lies down to watch TV or will sometimes eat while lying flat. She is also making poor food choices according to her mother who is expressing a great deal of concern about the patient's clinical decline. 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 The patient states that she continues to gain weight. However, she admits that she is eating candy and carbs because they are better tolerated than regular food. PAST MEDICAL HISTORY: 1. Severe diabetic gastroparesis. 2. Gastric pacemaker placement. 3. Poorly controlled diabetes mellitus. 4. Noncompliance. 5. GERD. 6. Esophageal stricture. 7. Recent antral ulcers x3. 8. Reflux esophagitis. 9. Oral thrush with Viky esophagitis. 10. Hiatal hernia. 11. Schatzki's ring. 12. Gastroduodenitis. 13. Hypertension. 14. Diabetic neuropathy. 15. Please see our previous dictations and recent consultation for an extensive list of her other medical diagnoses. PAST SURGICAL HISTORY: 1. Cholecystectomy. 2. Gastric stimulator. 3. Port-A-Cath placement. 4. Port-A-Cath removal. 5. J-tube placement. 6. J-tube removal. 7. PEG placement. 8. PEG removal. 9. Multiple EGDs with esophageal dilation. FAMILY HISTORY: Remarkable that her mother and brother have diabetes with gastroparesis. Her mother also has coronary artery disease, colon polyps, and diverticulosis. SOCIAL HISTORY: The patient denies tobacco use. She previously drank alcohol on a social basis, but currently uses marijuana. MEDICATION ALLERGIES: None. HOME MEDICATIONS: 1. Humulin R. 2. Ambien. 3. [place]. 4. Lantus. 5. Reglan. 6. Promethazine p.r.n. 7. It should be noted that the patient was prescribed IV Diflucan. But was discharged on oral Diflucan for completion of her 21 days of treatment for the thrush and Viky esophagitis that was diagnosed 5 days ago. REVIEW OF SYSTEMS: Remarkable for nausea with vomiting, abdominal pain and weakness as well as fatigue. PHYSICAL EXAMINATION: Vital signs: On exam, her blood pressure is 156/102, pulse of 110, respirations 20, temperature of 97.6 degrees. HEENT: Remarkable for bilateral parotid gland hypertrophy due to the recurrent nausea with vomiting. Her sclerae are anicteric. Her conjunctivae are normal. Her oropharyngeal mucosal membranes are remarkable for oral thrush. Her mucous membranes are otherwise moist. Neck: Supple. Chest: Coarse with no obvious rhonchi, wheezes or rales. Heart: Cardiovascular exam reveals a resting tachycardia with a regular rhythm. Abdominal: Reveals increasing central adiposity. The bowel sounds are hypo to normoactive. She is diffusely tender with no rebound or guarding. Extremities : Bilaterally are negative for cyanosis, clubbing, or edema. OBJECTIVE DATA: Reveals a hemoglobin of 12.1 with hematocrit of 35.8, and a white count of 12.37 with 290,000 platelets. Sodium is 150, potassium 3.7, chloride 111, CO2 21, BUN 12, creatinine 1.4 with a glucose of 231 and a calcium of 8.6. IMPRESSION: 1. Nausea with vomiting. 2. Refractory gastroparesis. 3. Known esophageal stricture. 4. Thrush with Viky esophagitis. 5. Reflux esophagitis. 6. Volume depletion. 7. Hyperamylasemia noted on admission. RECOMMENDATION: 1. The patient is currently receiving Reglan 5 mg before meals and at bedtime. In light of her refractory symptoms, I would increase the dose to 10 mg before meals and at bedtime. 2. Continue IV Nexium as you are doing. Every 24 hour dosing is inadequate for this patient. She will need a higher dose for acid suppression. 3. Intravenous erythromycin has been added to the patient's regimen. It is unclear if this is a beneficial addition for this patient. I will discuss her management with Dr. Brian Stanford who manages her gastroparesis at [facility] and through the [facility]. 4. Please check a KUB to assess for constipation. 5. I would resume the Diflucan because it does not appear that she has been adequately treated. 6. Await her biopsy results. She had esophageal brushings of the Viky as well as a biopsy of the distal esophageal polypoid lesion. We also took the liberty to biopsy her stomach and her duodenum. 7. The patient was previously on Carafate suspension which was of benefit to her. I would resume the Carafate suspension pending further evaluation. 8. The patient has failed gastric pacemaker, IV Reglan and IV erythromycin. She continues to have multiple admissions. In addition to discussing her medications, I will discuss with Dr. Stanford the pros and cons of performing a pyloroplasty to help this patient with her gastric emptying versus a subtotal gastrectomy. My main concern is the patient's noncompliance and therefore, she may not be an optimal surgical candidate. 9. The patient has failed the G-tube and J-tube feedings in the past at least twice. Therefore, I recommend parenteral nutrition in the event that she is unable to advance her diet. 10. The patient may have ice chips and sips of water. If she is doing well with this, I would advance her diet slowly. 11. Because she has worse nausea and vomiting when she is constipated, I would avoid constipation and treat if clinically evident. We will also need to minimize her pain medications. 12. I think she should be referred to the [facility] and not re-admitted here if she returns to the ER. We do not have the expertise to manage her care given the disease progression. 13. Additional recommendations to follow based on her clinical course. cc: MD Latha Desir MD Joel Powell, MD [facility] primary care clinic MTDNyasia
[2017-03-22] MEDS ORDERED: CHLORASEPTIC SORE THROAT LOZENGE MT PRN (22:32)
[2017-03-23] MEDS: ZOFRAN IV SCH ×3 (01:50→16:50)
[2017-03-23] MEDS: CARAFATE LIQUID PO SCH ×4 (01:54→19:54)
[2017-03-23] MEDS: ATIVAN IV PRN ×4 (01:54→20:14)
[2017-03-23] MEDS: 1/2 NS 1,000 ML IV SCH ×3 (06:24→13:21)
[2017-03-23] MEDS: LOPRESSOR IV SCH ×2 (06:24→11:21)
[2017-03-23] MEDS: HUMALOG SUBQ SCH ×4 (06:25→22:39)
[2017-03-23] MEDS: REGLAN IV SCH ×4 (06:34→20:02)
[2017-03-23 07:17] LABS: HEMATOCRIT 28.9 % (37.0-47.0); HEMOGLOBIN 9.5 g/dL (12.0-16.0); MCH 27.2 PG (27-31); MCHC 32.9 g/dL (33-37); MCV 82.8 FL (81-99); MPV 12.4 FL (7.4-10.4); RBC 3.49 XMIL (4.2-5.4)
[2017-03-23 07:27] LABS: CALCIUM 7.9 mg/dL (8.8-10.2); POTASSIUM 3.4 mmol/L (3.5-5.1)
[2017-03-23 07:46] LABS: MAGNESIUM 1.5 mg/dL (1.5-2.7)
--- NOTE | 2017-03-23 08:08 | Diag Imaging Result Doc PS360 ---
EXAM: KUB ABDOMEN HISTORY: constipation, n/v TECHNIQUE: KUB, two views COMMENT: There is retained barium in the ascending and to some extent transverse colon. The stomach and small bowel are not distended. There is a mass effect arising from the pelvis. This is likely to be a markedly distended urinary bladder. There is an intrauterine device which is somewhat displaced to the left. There is what appears to be a phlebolith in the lower left pelvis. IMPRESSION: 1. Distended urinary bladder. This was also the case of the time of the previous CT of 03/13/2017 and the abdominal series from 10/31/2016. 2. Retained barium in the colon. Electronically signed by Napoleon Bearden 03/23/2017 8:06 AM
[2017-03-23] MEDS: NEXIUM IV SCH ×2 (08:46→19:54)
[2017-03-23] MEDS: KLOR-CON PO ONE ×2 (08:46→08:51)
[2017-03-23] MEDS: SODIUM CHLORIDE 0.9% INJ SCH ×2 (08:46→20:03)
[2017-03-23] MEDS ORDERED: POTASSIUM CHLORIDE 40 MEQ/SWI 40 MEQ/100 ML IVPB IV ONE (11:00)
[2017-03-23] MEDS: DILAUDID IV PRN ×3 (11:22→19:53)
[2017-03-23] MEDS: PHENERGAN IV PRN (12:51)
[2017-03-23] MEDS ORDERED: MAGNESIUM SULFATE 2 GM/S.W.I. 2 GM/50 ML IVPB IV ONE (15:00)
[2017-03-23] MEDS: DIFLUCAN 100 MG/NS 100 MG/50 ML IVPB IV SCH (19:54)
[2017-03-23] MEDS: LOPRESSOR PO SCH (20:01)
[2017-03-23] MEDS: AMBIEN PO PRN (20:14)
[2017-03-24] MEDS: 1/2 NS 1,000 ML IV SCH ×2 (02:18→12:11)
[2017-03-24] MEDS: ZOFRAN IV SCH ×3 (02:19→17:44)
[2017-03-24] MEDS: CARAFATE LIQUID PO SCH ×4 (02:19→20:10)
--- NOTE | 2017-03-24 04:21 | PROGRESS NOTE ---
DATE: 03/23/2017 SUBJECTIVE: The patient is resting comfortably in bed. She states that she would like to try a liquid diet. She denies having any nausea or vomiting today. OBJECTIVE: Vital Signs: Temperature 98 degrees, blood pressure 140/91, heart rate 90, respirations 16, O2 saturations 99% on room air. General: This is a middle- aged female, lying in bed, in no acute distress. Head: Normocephalic, atraumatic. Heart: S1, S2. Normal. Regular rate and rhythm. Lungs: Clear to auscultation bilaterally. No wheezes, no rales. No rhonchi. Abdomen: Positive bowel sounds. Soft, nontender, nondistended. Extremities: No edema. No cyanosis. No calf tenderness. Neurologic: The patient is alert and oriented x3. No focal neurologic deficits noted. LABS: White blood cell count 11, hemoglobin 9.5, hematocrit 28, platelets 263, 000. Sodium 137, potassium 3.4, chloride 103, CO2 22, BUN 14, creatinine 1.6, glucose 90, calcium 7.9. ASSESSMENT AND PLAN: 1. Severe gastroparesis. We will start the patient on a clear liquid diet today and see if she can tolerate it. Continue on Reglan and IV fluid hydration. 2. Hypertension. We will restart oral antihypertensive therapy. 3. Diabetes mellitus type 2. Continue on sliding scale insulin coverage. 4. Hypokalemia. We will replace the patient's potassium. 5. Hypomagnesemia. Will replace the patient's magnesium. 6. Urinary retention. A diaz catheter has been ordered. 7. Chronic kidney disease.Monitor closely. 8. Deep vein thrombosis prophylaxis. We will continue with sequential compression devices. cc: Debra Maravilla MD [facility]
[2017-03-24] MEDS: HUMALOG SUBQ SCH ×4 (06:28→22:20)
[2017-03-24] MEDS: REGLAN IV SCH ×4 (06:29→20:10)
[2017-03-24] MEDS: DILAUDID IV PRN ×4 (06:29→22:17)
[2017-03-24 07:37] LABS: CALCIUM 7.4 mg/dL (8.8-10.2); POTASSIUM 3.9 mmol/L (3.5-5.1)
[2017-03-24 07:45] LABS: MAGNESIUM 1.9 mg/dL (1.5-2.7)
--- NOTE | 2017-03-24 09:17 | PROGRESS NOTE ---
DATE: 03/23/2017 HISTORY OF PRESENT ILLNESS: The patient states that she felt somewhat better today. She continues to have nausea but the vomiting is much better. She is tolerating a clear liquid diet with minimal dysphagia. Her KUB was remarkable for constipation and an enlarged bladder with displacement of her IUD. The patient reports minimal urge to void but was noted to have over a 1000 mL of urine on bladder scan. RECOMMENDATION: 1. Agree with placement of Green catheter. 2. Continue the Reglan for the treatment of the gastroparesis. 3. Continue Diflucan as she had Viky esophagitis on her upper endoscopy a few days ago. 4. Continue the Nexium and Carafate for the severe erosive esophagitis. 5. I left a message with Dr. Brian Stanford at [facility] to discuss her care. He has managed her gastric pacemaker. It is unclear if her pacemaker needs a dose adjustment or if she needs to be considered for a pyloroplasty versus a subtotal gastrectomy given her refractory symptoms. 6. If she requires major surgical intervention, it would be best to transfer her to the [facility] in [place], [place], as she receives health care benefits through the [facility]. 7. I have consulted Dr. Placido Cardoso to address the presumed neurogenic bladder. cc: MD Debra Desir MD Dr. Rodriquez ([facility]) Dr. Ghassan Stanford
[2017-03-24] MEDS: NEXIUM IV SCH ×2 (09:58→20:10)
[2017-03-24] MEDS: LOPRESSOR PO SCH ×2 (09:59→20:10)
[2017-03-24 10:32] LABS: UR CREAT RANDOM 37.6 mg/dL (11-20); UR PROT RANDOM 79.1 mg/dL
--- NOTE | 2017-03-24 12:44 | Diag Imaging Result Doc PS360 ---
EXAM: US RENAL 2 (RETROPER) COMPLETE HISTORY: dianelys/arf TECHNIQUE: COMPARISON: 04/11/2016 FINDINGS: The right kidney measures 9.1 x 4.4 x 4.3 cm. Normal renal echogenicity and cortical thickness. No renal stone or hydronephrosis. No renal mass. The left kidney measures 9.1 x 3.6 x 4.8 cm. Normal renal echotexture and cortical thickness. No renal stone or hydronephrosis. No renal mass. The urinary bladder is decompressed with a Green catheter. IMPRESSION: Normal renal ultrasound. Electronically signed by Hebert Soto 03/24/2017 12:42 PM
[2017-03-24] MEDS: ATIVAN IV PRN ×2 (13:44→20:10)
[2017-03-24] MEDS: PHENERGAN IV PRN (15:07)
[2017-03-24] MEDS: SODIUM CHLORIDE 0.9% INJ PRN (15:08)
--- NOTE | 2017-03-24 17:10 | PROGRESS NOTE ---
DATE: 03/24/2017 SUBJECTIVE: The patient is resting comfortably in bed. She states that she feels better today. She wants to try to advance her diet. OBJECTIVE: Vital Signs: Temperature 98, blood pressure 146/91, heart rate 84, respirations 20. O2 saturations 99% on room air. General: This is a middle-aged female, lying in bed, in no acute distress. Head: Normocephalic, atraumatic. Heart: S1, S2. Normal. Regular rate and rhythm. Lungs: Equal air entry bilaterally. Abdomen: Positive bowel sounds. Soft, nontender, nondistended. Extremities: No edema. No cyanosis. No calf tenderness. Neurologic: The patient is alert and oriented x3. LABS: Reviewed. ASSESSMENT AND PLAN: 1. Severe gastroparesis. Slowly improving. Will advance the patient to a full liquid diet today. Continue on the current medications. 2. Acute kidney injury on chronic kidney disease. The patient's FENA is 2. This may represent urinary retention. The patient now has a Green in place with excellent urine output. Will continue to monitor the patient's renal function closely. 3. Diabetes mellitus type 2. Continue on sliding scale insulin. 4. Hypertension. Continue on metoprolol. 5. Deep vein thrombosis prophylaxis. Continue with sequential compression devices. cc: Debra Maravilla MD
[2017-03-24] MEDS: AMBIEN PO PRN (20:12)
[2017-03-24] MEDS: DIFLUCAN 100 MG/NS 100 MG/50 ML IVPB IV SCH (20:13)
--- NOTE | 2017-03-24 20:49 | PROGRESS NOTE ---
DATE: 03/24/2017 SUBJECTIVE: The patient states that she is feeling much better. She has had minimal nausea with vomiting. She is tolerating liquids without difficulty. She is concerned and anxious to go home soon as her son, Chapo, is beginning college this year and has orientation on Monday. She states that in spite of her illness, this is an event she does not want to miss. I spoke with Dr. Stanford's office at [facility]. He would like to see her on Monday03/29/2017 at 8: 30 a.m. at the [facility] in the [facility] on the main floor of the [facility]. She is to arrive by 8:15 a.m. in order to complete paperwork. The plan is to adjust her pacemaker and possibly have her evaluated by Surgery to see if she is a candidate for a pyloroplasty. From a GI perspective, she is stable for discharge. She was also evaluated by Dr. Cardoso for probable neurogenic bladder. She is considering her treatment options. I recommend that she be scheduled for follow up in his office. She should return to our office in 3-4 weeks to assess interval progress. In the future, she should be followed at [facility] or the [facility] for regular care. cc: Franny Lewis MD [facility] primary care clinic Chapito Puente Jr, MD Fred Weber, MD MTDD
[2017-03-25] MEDS: CARAFATE LIQUID PO SCH ×5 (01:13→20:09)
[2017-03-25] MEDS: DILAUDID IV PRN ×6 (01:35→23:10)
[2017-03-25] MEDS: ZOFRAN IV SCH ×3 (01:35→18:24)
[2017-03-25] MEDS: REGLAN IV SCH ×4 (06:10→20:11)
[2017-03-25] MEDS: ATIVAN IV PRN ×4 (06:14→20:12)
[2017-03-25] MEDS: HUMALOG SUBQ SCH ×4 (06:15→20:22)
[2017-03-25 06:33] LABS: MANUAL DIFF NEEDED? NO
[2017-03-25 06:44] LABS: BASO% 0.2 % (0.0-0.8); EOS# 0.17 X1000 (0.0-0.7); HEMATOCRIT 27.1 % (37.0-47.0); HEMOGLOBIN 8.9 g/dL (12.0-16.0); LYMPH# 2.52 X1000 (1.2-3.4); LYMPH% 44.4 % (20.5-51.1); MCH 26.6 PG (27-31); MCHC 32.8 g/dL (33-37); MCV 81.1 FL (81-99); MONO# 0.53 X1000 (0.11-0.59); MONO% 9.3 % (1.7-9.3); MPV 12.2 FL (7.4-10.4); NEUT% 43.1 % (42.2-75.2); PLT 291 X1000 (130-400); RBC 3.34 XMIL (4.2-5.4)
[2017-03-25 07:00] LABS: CALCIUM 7.7 mg/dL (8.8-10.2)
[2017-03-25] MEDS: NEXIUM IV SCH ×2 (08:09→20:11)
[2017-03-25] MEDS: LOPRESSOR PO SCH ×2 (08:09→20:12)
[2017-03-25] MEDS: PHENERGAN IV PRN ×2 (10:29→17:02)
--- NOTE | 2017-03-25 15:51 | PROGRESS NOTE ---
DATE: 03/25/2017 SUBJECTIVE: The patient says that she is still having some nausea but she does want to try a solid diet today. OBJECTIVE: Vital Signs: Temperature is 98.1, blood pressure 126/83, heart rate 74, respirations 20, O2 saturations 98% on room air. General: This is a middle-aged female, lying in bed, in no acute distress. Head normocephalic, atraumatic. Heart: S1, S2 normal. Regular rate and rhythm. Lungs clear to auscultation bilaterally. Abdomen: Positive bowel sounds. Soft , nontender, nondistended. Extremities: No edema. No cyanosis. Neurologic: The patient is alert and oriented x3. LABORATORY: Hemoglobin 8.9, hematocrit 27, sodium 141, potassium 4, chloride 107, CO2 of 24. BUN 12, creatinine 1.6. ASSESSMENT AND PLAN: 1. Severe gastroparesis. The patient will be started on a solid diet today. If she tolerates this without any difficulty, we will plan to discharge the patient home tomorrow. The patient has an appointment that has been set up by Dr. Lewis at the [facility] on 03/29/2017. 2. Stage 3 chronic kidney disease. Stable. 3. Hypertension, controlled. 4. Diabetes mellitus, type 2. Continue on sliding scale insulin. 5. We will plan to discharge the patient home tomorrow if she tolerates her meals today. cc: Debra Maravilla MD MTDD
[2017-03-25 16:07] LABS: MANUAL DIFF NEEDED? NO
[2017-03-25 16:10] LABS: BASO% 0.3 % (0.0-0.8); EOS# 0.19 X1000 (0.0-0.7); EOS% 2.8 % (0.0-10.0); HEMATOCRIT 27.8 % (37.0-47.0); HEMOGLOBIN 9.2 g/dL (12.0-16.0); IMM GRAN# 0.02 X1000 (0.0-0.04); IMM GRAN% 0.3 % (0.0-0.5); LYMPH% 31.9 % (20.5-51.1); MCH 26.8 PG (27-31); MCHC 33.1 g/dL (33-37); MONO# 0.52 X1000 (0.11-0.59); MONO% 7.5 % (1.7-9.3); MPV 11.7 FL (7.4-10.4); NEUT% 57.2 % (42.2-75.2); PLT 288 X1000 (130-400); RBC 3.43 XMIL (4.2-5.4)
--- NOTE | 2017-03-25 17:43 | PROGRESS NOTE ---
DATE: 03/25/2017 PRIMARY HOSPITALIST: Debra Maravilla M.D. PRIMARY CARE PHYSICIAN: Dr. Koo at the [facility] in [place], [place]. SUBJECTIVE: The patient states that she is feeling much better today. She is anxious to go home. She was noted to have a slight drop in her hemoglobin on rounds this morning. However, repeat CBC reveals a stable hemoglobin. She notes that she is tolerating soft foods. She continues to have nausea but it has returned to her baseline. She denies other complaints. Specifically, she denies melena and hematochezia. She had 1 solid bowel movement on 03/24/2017. VITAL SIGNS: Reveals a blood pressure of 126/83, pulse 74, respiration 20, temperature of 98.2 degrees. Pulmonary: Lungs are clear to auscultation with normal respiratory effort. Cardiovascular: Reveals regular rate and rhythm with no murmurs, gallops, or rubs. Abdomen: Reveals normoactive bowel sounds. The abdomen is soft, nontender with central adiposity. HEENT: Notable for parotid gland hypertrophy. OBJECTIVE DATA: Reveals a hemoglobin 9.2 with hematocrit of 27.8 and a white count of 6.89. She has 288,000 platelets. Sodium is 141, potassium 4.0, chloride 107, CO2 24, BUN 12, creatinine 1.6 with a glucose of 158 and a calcium of 7.7. RECOMMENDATION: 1. From a GI perspective, the patient has improved considerably and should be stable for outpatient management. She is scheduled to see Dr. Brian Stanford on Monday at 8:30 a.m. She was instructed to arrive at the [facility] by at 8:15 a.m. She expresses understanding and agrees to be prompt so that she is able to be evaluated for pyloroplasty versus adjustments of her gastric pacemaker. 2. I would transition her to oral PPI therapy twice a day. 3. She will need to complete a 21 day course of Diflucan for the Viky esophagitis. 4. Continue Reglan 5-10 mg p.o. a.c. and at bedtime. 5. She may use Zofran as needed. 6. She is on a 12 week course of Carafate for her severe erosive esophagitis. In light of her kidney disease which is new, I recommend shortening the course to 8 weeks as Carafate has trace amounts of aluminum present. 7. Please have the patient return to clinic 4 weeks after hospital discharge for interval reassessment. cc: MD Debra Desir MD [facility] Primary Care clinic MD SYDNEE Olivo
[2017-03-25] MEDS: SODIUM CHLORIDE 0.9% INJ SCH (20:11)
[2017-03-25] MEDS: DIFLUCAN 100 MG/NS 100 MG/50 ML IVPB IV SCH (20:11)
[2017-03-25] MEDS: AMBIEN PO PRN (20:12)
[2017-03-26] MEDS: ZOFRAN IV SCH ×3 (01:23→18:14)
[2017-03-26] MEDS: ATIVAN IV PRN ×3 (01:23→13:22)
[2017-03-26] MEDS: CARAFATE LIQUID PO SCH ×3 (01:23→13:49)
[2017-03-26] MEDS: PHENERGAN IV PRN ×3 (02:48→16:23)
[2017-03-26] MEDS: REGLAN IV SCH ×3 (06:40→16:24)
[2017-03-26] MEDS: DILAUDID IV PRN ×5 (06:40→18:41)
[2017-03-26] MEDS: HUMALOG SUBQ SCH ×3 (06:44→18:16)
[2017-03-26] MEDS: SODIUM CHLORIDE 0.9% INJ SCH (09:08)
[2017-03-26] MEDS: LOPRESSOR PO SCH (09:08)
[2017-03-26] MEDS: NEXIUM IV SCH (09:08)
[2017-03-26 09:45] VITALS: BP 147/96
[2017-03-26 11:57] LABS: HEMATOCRIT 28.1 % (37.0-47.0); HEMOGLOBIN 9.1 g/dL (12.0-16.0); MCH 26.5 PG (27-31); MCHC 32.4 g/dL (33-37); MCV 81.9 FL (81-99); MPV 11.8 FL (7.4-10.4); RBC 3.43 XMIL (4.2-5.4)
--- NOTE | 2017-03-26 15:39 | CONSULTATION ---
DATE OF CONSULTATION: 03/24/2017 CONSULTING PHYSICIAN: Franny Lewis MD REASON FOR CONSULTATION: Urinary retention. HISTORY OF PRESENT ILLNESS: A 41-year-old female with significant diabetes mellitus with resultant neuropathy, gastroparesis. She was admitted with pain, nausea and vomiting. In the process of her workup, she was found to have approximately a liter in her urinary bladder. Green catheter was introduced. Urology was consulted. The patient reports absolutely no issues "with urination". She denies sensation of incomplete emptying. She denies nocturia. She denies any urinary incontinence whatsoever. She denies gross hematuria, urinary tract infections or dysuria. PAST MEDICAL HISTORY: 1. Diabetes mellitus. 2. Peripheral neuropathy. 3. Gastroparesis. 4. Hypertension. 5. GERD. PAST SURGICAL HISTORY: Cholecystectomy. Gastric stimulator. Port-A-Cath placement. Port-A-Cath removal. ALLERGIES: No known drug allergies. FAMILY HISTORY: Positive for diabetes mellitus. SOCIAL HISTORY: Denies tobacco or alcohol use. HOME MEDICATIONS: Humulin. Phenergan. Ambien. [place]. Lantus. Reglan. REVIEW OF SYSTEM: Obtained and 12 systems negative with exception of the HPI. PHYSICAL EXAMINATION: Vital signs: Temperature 97.9 degrees, pulse 80, blood pressure 135/78. General: No acute distress. Cardiovascular: Regular rhythm. Pulmonary: Bilateral breath sounds. Abdomen: Protuberant, nontender to palpation. : Bladder is nontender to palpation. Pelvic: Exam deferred at the time of the examination. Lymphatic: No groin lymphadenopathy. Neurologic: Alert and oriented x3. Psychiatric: Appropriate mood and affect. PERTINENT LABORATORY: White cell count was 12,000, creatinine 1.6. PERTINENT IMAGES: Renal ultrasound on 03/24/2017 revealing no evidence of hydronephrosis. ASSESSMENT/PLAN: A 41-year-old female with severe and poorly controlled diabetes mellitus with resultant neuropathy and gastroparesis. She likely has neuropathy extending to her urinary bladder. Certainly having a liter in her bladder and not noting it is not normal. I have sat down and discussed with the patient her difficult situation. She has no symptoms. I have explained to her that eventually her upper tract would deteriorate significantly. I have discussed with her that formal evaluation of whether her bladder is neurogenic or not will be performed with office urodynamics at the office. Following that, her options would be to continue with urethral catheter, choose to perform intermittent self catheterization, which I doubt based on record review and poor compliance, or considering suprapubic tube which would be then exchanged on a monthly basis. She voiced understanding. PLAN: We will set her up on outpatient basis for urodynamics to formally document that she has neurogenic bladder. At that time, I will revisit with the patient management of her bladder. Thank you for consultation. cc: Placido Cardoso MD
--- NOTE | 2017-03-26 17:17 | PROGRESS NOTE ---
DATE: 03/26/2017 SUBJECTIVE: The patient is resting comfortably in bed. She is tolerating a solid diet. No acute events noted overnight. OBJECTIVE: Vital Signs: Temperature 98 degrees, blood pressure 147/96, heart rate 81, respirations 16, O2 saturations 100% on room air. General: This is a middle-aged female lying in bed in no acute distress. Head: Normocephalic, atraumatic. Heart: S1, S2. Normal. Regular rate and rhythm. Lungs: Clear to auscultation bilaterally. No wheezes, no rales. No rhonchi. Abdomen: Positive bowel sounds. Soft, nontender, nondistended. Extremities: No edema. No cyanosis. No calf tenderness. Neurologic: The patient is alert and oriented x3. LABS: White blood cell count 5.3, hemoglobin 9.1, hematocrit 28, platelets 288,000. ASSESSMENT AND PLAN: 1. Severe gastroparesis. Improved. The patient still has some mild nausea but she is able to tolerate her current diet. Will continue on Reglan. 2. Stage 3 chronic kidney disease. Stable. 3. Urinary retention. The patient currently has a Green catheter in place currently awaiting urology recommendations. 4. Diabetes mellitus type 2. Continue on sliding scale insulin. 5. Disposition. Will plan to discharge the patient home once cleared by the urologist. cc: Debra Maravilla MD
--- NOTE | 2017-03-30 09:49 | DISCHARGE SUMMARY ---
ADMISSION DATE: 03/21/2017 DISCHARGE DATE: 03/26/2017 FINAL DISCHARGE DIAGNOSES: 1. Severe gastroparesis. 2. Stage III chronic kidney disease. 3. Uncontrolled diabetes mellitus type 2. 4. Urinary retention. CONSULTATIONS REQUESTED DURING THIS HOSPITAL STAY: GI consultation with Dr. Lewis. HOSPITAL COURSE: Ms. Bobby is a 41-year-old female with a history of known severe gastroparesis who presented to the ER with persistent nausea and vomiting. The patient was admitted to the hospitalist service and GI was consulted. The patient does have severe esophagitis and was started on Carafate. The patient was made NPO initially and started on IV fluids. Reglan was also started as well. Slowly, over the course of the hospital stay, the patient's nausea and vomiting improved and her diet was able to be advanced slowly. The patient did continue to have some nausea but no vomiting. The patient was noted to be retaining urine so a urology consultation was placed after a Green catheter was placed. It was recommended by the urologist that the patient follow up as outpatient for further workup for her urinary retention. The patient was advised to keep the Green catheter in until she follows up with Dr. Cardoso in the clinic. The patient continued to improve clinically. The patient has an appointment with Dr. Brian Stanford on Monday at 8:30 a.m. at the [facility] to discuss pyeloplasty versus adjustments to her gastric pacemaker. DISCHARGE MEDICATIONS: 1. Carafate 1 g p.o. 4 times a day. 2. Phenergan 25 mg per rectum every 6 hours p.r.n. for vomiting. 3. Ambien 10 mg p.o. at bedtime p.r.n. for sleep. 4. [place] 10/325 one tablet oral every 6 hours p.r.n. for pain. 5. Lantus 20 units subcutaneous at bedtime. 6. Reglan 5 mg p.o. 3 times a day before meals. DISCHARGE DIET: An 1800, ADA, soft GI diet. FOLLOWUP INSTRUCTIONS: The patient is scheduled to follow up with Dr. Brian Stanford at the [facility] on 03/29/2017 at 8:30 a.m. The patient will also need to follow up with Dr. Koo at the [facility] in [place]. cc: Debra Maravilla MD
--- NOTE | 2017-04-12 20:08 | PROVIDER DOCUMENTATION ---
This chart was entered by Esther Taylor Scribe, acting as scribe for Isaiah Barnard MD. HPI-Abdominal Pain/GI Problem - General Chief Complaint: Nausea/Vomiting Stated Complaint: N/V/D Time Seen by Provider: 03/21/17 21:42 Allergies/Adverse Reactions: Patient Allergies Allergy/AdvReac Type Severity Reaction Status Date / Time No Known Allergies Allergy Verified 03/29/17 18:22 Home Medications: Home Medication List Medication Instructions Recorded Confirmed Last Taken Type Insulin Human Regular [Humulin R] 1 unit SUBQ DIRECTED 12/06/14 03/29/17 21:00 History Promethazine [Phenergan] 25 mg HI Q6H PRN PRN #20 supp 02/11/16 03/29/17 21:00 Rx Zolpidem [Ambien] 10 mg PO HS PRN PRN #20 04/21/16 03/29/17 03/28/17 21:00 Rx Hydrocodone/APAP 10 mg/325 mg 1 each PO Q6H PRN PRN #0 tablet 07/25/16 03/29/17 03/28/17 21:00 Rx [[place]-10] Insulin Glargine [Lantus] 20 unit SUBQ QHS #0 insuln.pen 07/25/16 03/29/1703/28 21:00 Rx Metoclopramide HCl [Reglan] 5 mg PO TID #90 tablet 03/18/17 03/29/17 03/28/17 21 :00 Rx Sucralfate [Carafate] 1 gm PO 4DAY #120 tablet 03/26/17 03/29/17 03/28/17 21: 00 Rx - History of Present Illness-ABD Nature of Presenting Problems: 27 Y/O F presents to ED with ABD pain. Pt states she began severely Vomiting today. Denies Diarrhea. Pt is in moderate distress. Has a hx of gastrophersis. Pt is severely diaphoretic, hx of diabetes. Seen here this weekend for similar symptoms. Pt states she has a gastric pace maker. Abdominal Pain Onset Location: reports: generalized abdomen Pain Radiation: reports: no radiation Quality of Pain: reports: aching Severity in ED: reports: severe Onset/Duration: reports: this evening Timing: reports: still present Activities at Onset: reports: none Associated Symptoms: reports: diaphoresis, nausea, vomiting. denies: denies symptoms, arm pain, back/neck pain, diarrhea, dizziness, fatigue, fever/chills, malaise, muscle aches, swelling/mass in abdomen Review of Systems - Adult - REVIEW OF SYSTEMS - ADULT Constitutional: denies: chills, fever Eyes: reports: no symptoms reported Ears, Nose, Mouth & Throat: reports: no symptoms reported Cardiovascular: reports: no symptoms reported Respiratory: reports: no symptoms reported Gastrointestinal: reports: abdominal pain, nausea, vomiting. denies: diarrhea Genitourinary: reports: no symptoms reported Musculoskeletal: reports: no symptoms reported Integumentary: reports: no symptoms reported Neurological: reports: no symptoms reported Psychiatric: reports: no symptoms reported Endocrine: reports: excessive sweating Hematologic/Lymphatic: reports: no symptoms reported Allergic/Immunologic: reports: no symptoms reported All Other Systems: Reviewed and Negative Past History - Adult - PAST MEDICAL HISTORY-ADULT Review of Records: reports: Old Records Reviewed, Nursing Assessment Review, Medications Reviewed, Social history reviewed & non-contributory. Major Childhood Illnesses: reports: denies history Cardiovascular: reports: HTN, hyperlipidemia Respiratory: reports: denies history Gastrointestinal: reports: GERD (with esophagitis and stenosis), GI bleed, ulcer , other (diabetic gastroparesis, erosive gastritis and esophagitis) Obstetrical/Gynecological: reports: denies history Genitourinary: reports: other (ammenorrhea for 1 year) Musculoskeletal: reports: denies history Neurological: reports: other (DM neuropathy) Psychiatric: reports: anxiety, depression Endocrine/Immune: reports: anemia, Diabetes Other Conditions: reports: denies history Additional History: frequent ER visits - PRIOR SURGERIES/PROCEDURES Surgical/Procedure History: reports: cholecystectomy, indwelling device ( Portacath), other (gastric stimulator) - IMMUNIZATION STATUS Childhood Immunizations: See Nurse Assessment Flu Vaccine: See Nurse Assessment - FAMILY HISTORY Family History: reviewed, not pertinent Physical Exam-General - CONSTITUTIONAL General Appearance: alert, moderate distress. negative: appears well - EYES Eyes: pink conjunctivae - HEAD, EARS, NOSE, MOUTH & THROAT HENMT: normal ENT inspection, TMs normal, pharynx normal - NECK Neck: supple, normal inspection - RESPIRATORY Respiratory: lungs clear, normal breath sounds - GASTROINTESTINAL (ABDOMEN) Abdominal Exam: tenderness - MUSCULOSKELETAL Back Exam: no CVA tenderness, no vertebral tenderness Extremity: non-tender - SKIN Integumentary: diaphoresis - NEUROLOGIC Neurologic: grossly normal - PSYCHIATRIC Psych/Mental Status: oriented x 3 Progress - PLAN OF CARE/RESULTS Progress/Plan/Lab Results: Vital Signs - 8 hr 03/21/17 19:45 Temperature 98.1 F Pulse Rate 97 H Respiratory Rate 18 Blood Pressure 181/98 O2 Sat by Pulse Oximetry 100 Orders Category Date Time Status NPO Diet 03/21/17 20:00 Active AMYLASE [CHEM] Stat Lab 03/21/17 21:30 Ordered CBC WITH ELECTRONIC DIFF [HEME] Stat Lab 03/21/17 21:30 Ordered COMPREHENSIVE METABOLIC PANEL [CHEM] Stat Lab 03/21/17 21:30 Ordered LIPASE [CHEM] Stat Lab 03/21/17 21:30 Ordered URINALYSIS W/POSS RFLX CULT-1 [URINALYSIS] Stat Lab 03/21/17 20:00 Uncollected Result Diagrams: 03/26/17 11:35 03/25/17 06:25 - CONSULTS/PCP/HOSPITALIST Notification #1 *Consult/PCP/Hospitalist*: Time Discussed: 22:38 Reason/Comments: Admit Consult Disposition: Admit (Admit Accepted) Departure - Departure Date of Disposition Decision: 03/21/17 Time of Disposition Decision: 22:38 DIAGNOSIS: Gastroparesis, Abdominal pain, Vomiting Disposition: ADMITTED INPATIENT 09 Certified Medical Emergency: Emergent Condition: Stable - Critical Care Note This patient required my direct & personal management of CC.: No Attestation - Physician/ GAUDENCIO Attestation The physician spent face to face time with patient:: Yes Advanced Practice Provider documentation review:: Supervising physician onsite and consulted in the evaluation and care of this patient. The physician did have a face to face encounter with the patient. This chart was documented by the indicated scribe, (Esther Taylor Scribe) and accurately reflects the services I performed and decisions made by me, Isaiah Barnard MD, as attested by the provider's signature.
== END 2017-03-26 19:24 | disposition home or self-care (01) ==
LOC: ED 19:30 → 3N 23:34 → SUATTDRO 23:34
PROVIDERS: ATTEND Internal Medicine

== ENCOUNTER 2017-05-06 23:04 | Inpatient (IN) ==
[2017-05-06] MEDS ORDERED: NS 1,000 ML IV ONE (23:26)
[2017-05-06] MEDS ORDERED: PHENERGAN IV ONE (23:31)
[2017-05-06] MEDS ORDERED: SODIUM CHLORIDE 0.9% INJ ONE (23:31)
[2017-05-06] MEDS ORDERED: ZOFRAN IV ONE (23:32)
[2017-05-06] MEDS ORDERED: DILAUDID IV ONE (23:32)
[2017-05-06] MEDS ORDERED: BENADRYL IV ONE (23:32)
[2017-05-06] MEDS ORDERED: REGLAN IV ONE (23:32)
[2017-05-06] MEDS ORDERED: OFIRMEV 1000 MG/ISOTONIC SOLN 1,000 MG/100 ML BOTTLE IV ONE (23:33)
[2017-05-06 23:58] LABS: MANUAL DIFF NEEDED? NO
[2017-05-06] MEDS ORDERED: DILAUDID ONE (23:58)
[2017-05-07 00:01] LABS: BASO% 0.4 % (0.0-0.8); EOS# 0.28 X1000 (0.0-0.7); EOS% 3.6 % (0.0-10.0); HEMATOCRIT 33.7 % (37.0-47.0); HEMOGLOBIN 11.6 g/dL (12.0-16.0); IMM GRAN# 0.02 X1000 (0.0-0.04); IMM GRAN% 0.3 % (0.0-0.5); LYMPH# 2.24 X1000 (1.2-3.4); LYMPH% 28.6 % (20.5-51.1); MCH 26.2 PG (27-31); MCHC 34.4 g/dL (33-37); MCV 76.1 FL (81-99); MONO# 0.44 X1000 (0.11-0.59); MONO% 5.6 % (1.7-9.3); MPV 11.9 FL (7.4-10.4); NEUT% 61.5 % (42.2-75.2); PLT 356 X1000 (130-400); RBC 4.43 XMIL (4.2-5.4)
[2017-05-07 00:49] LABS: ALBUMIN 3.9 g/dL (3.5-5.0); CALCIUM 8.8 mg/dL (8.8-10.2); POTASSIUM 3.2 mmol/L (3.5-5.1); TOTAL BILIRUBIN 0.38 mg/dL (0.20-1.00); TOTAL PROTEIN 6.8 g/dL (6.3-8.3)
[2017-05-07] MEDS ORDERED: ZOFRAN IV PRN (03:29)
[2017-05-07] MEDS: REGLAN IV SCH ×3 (03:51→20:36)
[2017-05-07] MEDS: POTASSIUM CHLORIDE 20 MEQ/SWI 20 MEQ/100 ML IVPB IV SCH ×2 (03:52→06:20)
[2017-05-07] MEDS ORDERED: PROTONIX IV SCH (04:30)
[2017-05-07] MEDS: HUMULIN R SUBQ SCH ×3 (06:20→15:38)
[2017-05-07] MEDS: SODIUM CHLORIDE 0.9% INJ SCH (06:20)
[2017-05-07 08:07] LABS: HEMATOCRIT 29.5 % (37.0-47.0); MCH 26.2 PG (27-31); MCHC 33.9 g/dL (33-37); MCV 77.2 FL (81-99); MPV 11.5 FL (7.4-10.4); RBC 3.82 XMIL (4.2-5.4)
[2017-05-07 08:37] LABS: CALCIUM 8.1 mg/dL (8.8-10.2); POTASSIUM 3.8 mmol/L (3.5-5.1)
[2017-05-07] MEDS: PHENERGAN IV PRN ×3 (09:37→20:36)
[2017-05-07] MEDS: NUBAIN IV PRN ×3 (09:37→20:36)
[2017-05-07] MEDS: NS 1,000 ML IV SCH ×2 (09:38→18:13)
[2017-05-07] MEDS: PROTONIX IV SCH (18:13)
[2017-05-07] MEDS: CARAFATE LIQUID PO SCH (20:36)
[2017-05-08] MEDS: HUMULIN R SUBQ SCH ×4 (00:39→23:05)
[2017-05-08] MEDS: NUBAIN IV PRN ×5 (02:16→20:54)
[2017-05-08] MEDS: REGLAN IV SCH ×4 (02:16→21:06)
[2017-05-08] MEDS: CARAFATE LIQUID PO SCH ×4 (02:16→21:06)
[2017-05-08] MEDS: PHENERGAN IV PRN ×5 (02:17→20:54)
[2017-05-08 05:52] LABS: MANUAL DIFF NEEDED? NO
[2017-05-08 05:59] LABS: BASO% 0.6 % (0.0-0.8); EOS# 0.26 X1000 (0.0-0.7); HEMOGLOBIN 9.3 g/dL (12.0-16.0); LYMPH# 2.34 X1000 (1.2-3.4); LYMPH% 44.7 % (20.5-51.1); MCH 26.2 PG (27-31); MCHC 33.2 g/dL (33-37); MCV 78.9 FL (81-99); MONO# 0.39 X1000 (0.11-0.59); MONO% 7.5 % (1.7-9.3); MPV 12.2 FL (7.4-10.4); NEUT% 42.2 % (42.2-75.2); PLT 263 X1000 (130-400); RBC 3.55 XMIL (4.2-5.4)
[2017-05-08 06:12] LABS: ALBUMIN 2.7 g/dL (3.5-5.0); CALCIUM 7.8 mg/dL (8.8-10.2); POTASSIUM 3.5 mmol/L (3.5-5.1); TOTAL BILIRUBIN 0.31 mg/dL (0.20-1.00); TOTAL PROTEIN 5.2 g/dL (6.3-8.3)
[2017-05-08] MEDS: SODIUM CHLORIDE 0.9% INJ SCH ×2 (07:38→16:58)
[2017-05-08] MEDS: PROTONIX IV SCH (07:38)
[2017-05-09] MEDS: REGLAN IV SCH ×6 (01:06→22:35)
[2017-05-09] MEDS: PHENERGAN IV PRN ×6 (01:06→22:35)
[2017-05-09] MEDS: CARAFATE LIQUID PO SCH ×4 (01:08→22:35)
[2017-05-09] MEDS: NUBAIN IV PRN ×6 (01:08→22:35)
[2017-05-09 06:05] LABS: BASO% 0.2 % (0.0-0.8); EOS# 0.03 X1000 (0.0-0.7); EOS% 0.5 % (0.0-10.0); HEMOGLOBIN 9.9 g/dL (12.0-16.0); MANUAL DIFF NEEDED? NO
[2017-05-09 06:11] LABS: HEMATOCRIT 29.8 % (37.0-47.0); LYMPH# 0.87 X1000 (1.2-3.4); LYMPH% 15.6 % (20.5-51.1); MCH 26.1 PG (27-31); MCHC 33.2 g/dL (33-37); MCV 78.4 FL (81-99); MONO% 1.8 % (1.7-9.3); MPV 12.3 FL (7.4-10.4); NEUT% 81.9 % (42.2-75.2); PLT 271 X1000 (130-400)
[2017-05-09] MEDS: HUMULIN R SUBQ SCH ×4 (06:24→22:37)
[2017-05-09] MEDS: PROTONIX IV SCH ×3 (06:24→18:06)
[2017-05-09 06:41] LABS: IRON SATURATION 14 %; TIBC 237 ug/dL; TOTAL IRON 32 ug/dL (49-151); UNBOUND IRON 205 ug/dL (112-346)
[2017-05-09 07:00] LABS: FERRITIN 22 ng/mL (13-150)
[2017-05-09 07:15] LABS: POTASSIUM 3.7 mmol/L (3.5-5.1)
[2017-05-09] MEDS ORDERED: D5W 1,000 ML IV SCH (08:39)
[2017-05-09] MEDS: SODIUM CHLORIDE 0.9% INJ PRN ×2 (09:47→10:06)
[2017-05-09] MEDS ORDERED: VENOFER IV ONE (13:08)
[2017-05-09] MEDS: FOLIC ACID 1 MG in NS 50 ML IV SCH (15:00)
[2017-05-09] MEDS: SODIUM CHLORIDE 0.9% INJ SCH (18:06)
[2017-05-10] MEDS: CARAFATE LIQUID PO SCH ×4 (02:48→22:37)
[2017-05-10] MEDS: REGLAN IV SCH ×4 (02:48→22:37)
[2017-05-10] MEDS: NUBAIN IV PRN ×5 (02:48→19:41)
[2017-05-10] MEDS: PHENERGAN IV PRN ×5 (02:48→19:42)
[2017-05-10 05:38] LABS: MANUAL DIFF NEEDED? NO
[2017-05-10 05:47] LABS: BASO% 0.1 % (0.0-0.8); EOS# 0.19 X1000 (0.0-0.7); EOS% 2.7 % (0.0-10.0); HEMATOCRIT 31.1 % (37.0-47.0); HEMOGLOBIN 10.4 g/dL (12.0-16.0); LYMPH# 2.32 X1000 (1.2-3.4); LYMPH% 33.1 % (20.5-51.1); MCH 26.1 PG (27-31); MCHC 33.4 g/dL (33-37); MCV 78.1 FL (81-99); MONO# 0.48 X1000 (0.11-0.59); MONO% 6.8 % (1.7-9.3); MPV 12.3 FL (7.4-10.4); NEUT% 57.3 % (42.2-75.2); PLT 305 X1000 (130-400); RBC 3.98 XMIL (4.2-5.4)
[2017-05-10 06:07] LABS: ALBUMIN 3.2 g/dL (3.5-5.0); CALCIUM 8.4 mg/dL (8.8-10.2); POTASSIUM 3.6 mmol/L (3.5-5.1); TOTAL BILIRUBIN 0.3 mg/dL (0.20-1.00)
[2017-05-10] MEDS: PROTONIX IV SCH ×2 (06:46→17:33)
[2017-05-10] MEDS: SODIUM CHLORIDE 0.9% INJ SCH ×5 (06:47→19:42)
[2017-05-10] MEDS: HUMULIN R SUBQ SCH ×4 (06:49→22:37)
[2017-05-10] MEDS ORDERED: VENOFER IV ONE (07:00)
[2017-05-10] MEDS ORDERED: G.I. COCKTAIL PO ONE (13:28)
[2017-05-10] MEDS: FOLIC ACID 1 MG in NS 50 ML IV SCH (13:47)
[2017-05-10] MEDS ORDERED: REGLAN IV ONE (20:12)
[2017-05-11] MEDS: NUBAIN IV PRN ×6 (00:25→22:30)
[2017-05-11] MEDS: SODIUM CHLORIDE 0.9% INJ PRN ×3 (00:25→22:30)
[2017-05-11] MEDS: PHENERGAN IV PRN ×6 (00:25→22:30)
[2017-05-11] MEDS: REGLAN IV SCH ×4 (03:10→21:21)
[2017-05-11] MEDS: CARAFATE LIQUID PO SCH ×4 (03:10→21:21)
[2017-05-11] MEDS: PROTONIX IV SCH ×2 (05:58→18:16)
[2017-05-11] MEDS: HUMULIN R SUBQ SCH ×4 (06:35→21:20)
[2017-05-11 06:47] LABS: MANUAL DIFF NEEDED? NO
[2017-05-11 06:51] LABS: BASO% 0.2 % (0.0-0.8); EOS% 2.4 % (0.0-10.0); HEMOGLOBIN 10.9 g/dL (12.0-16.0); LYMPH# 1.99 X1000 (1.2-3.4); LYMPH% 24.3 % (20.5-51.1); MCH 26.7 PG (27-31); MCHC 34.1 g/dL (33-37); MCV 78.2 FL (81-99); MONO# 0.51 X1000 (0.11-0.59); MONO% 6.2 % (1.7-9.3); MPV 12.4 FL (7.4-10.4); NEUT% 66.9 % (42.2-75.2); PLT 313 X1000 (130-400); RBC 4.09 XMIL (4.2-5.4)
[2017-05-11 07:12] LABS: CALCIUM 8.6 mg/dL (8.8-10.2); POTASSIUM 3.2 mmol/L (3.5-5.1)
[2017-05-11] MEDS: FOLIC ACID 1 MG in NS 50 ML IV SCH (14:03)
[2017-05-11] MEDS: SODIUM CHLORIDE 0.9% INJ SCH (18:16)
[2017-05-12] MEDS: NUBAIN IV PRN ×6 (03:22→23:38)
[2017-05-12] MEDS: PHENERGAN IV PRN ×6 (03:22→23:39)
[2017-05-12] MEDS: REGLAN IV SCH ×4 (03:24→21:21)
[2017-05-12] MEDS: CARAFATE LIQUID PO SCH ×4 (03:24→21:21)
[2017-05-12] MEDS: SODIUM CHLORIDE 0.9% INJ SCH (05:20)
[2017-05-12] MEDS: PROTONIX IV SCH ×2 (05:20→17:22)
[2017-05-12] MEDS: HUMULIN R SUBQ SCH ×4 (06:16→21:21)
[2017-05-12 06:55] LABS: AGAP 12; BUN 8 mg/dL (8-22); CHLORIDE 116 mmol/L (98-107); COSMO 285; SODIUM 144 mmol/L (136-145); TCO2 16 mmol/L (25-35)
[2017-05-12 07:32] LABS: POTASSIUM 2.3 mmol/L (3.5-5.1)
[2017-05-12 07:33] LABS: CALCIUM 5.9 mg/dL (8.8-10.2)
[2017-05-12 07:57] LABS: MANUAL DIFF NEEDED? NO
[2017-05-12 08:00] LABS: BASO% 0.5 % (0.0-0.8); EOS# 0.34 X1000 (0.0-0.7); EOS% 5.2 % (0.0-10.0); HEMATOCRIT 28.8 % (37.0-47.0); HEMOGLOBIN 9.7 g/dL (12.0-16.0); LYMPH# 2.57 X1000 (1.2-3.4); LYMPH% 39.5 % (20.5-51.1); MCH 26.4 PG (27-31); MCHC 33.7 g/dL (33-37); MCV 78.5 FL (81-99); MONO# 0.46 X1000 (0.11-0.59); MONO% 7.1 % (1.7-9.3); MPV 11.7 FL (7.4-10.4); NEUT% 47.7 % (42.2-75.2); PLT 267 X1000 (130-400); RBC 3.67 XMIL (4.2-5.4)
[2017-05-12] MEDS: PRINIVIL PO SCH (08:06)
[2017-05-12] MEDS ORDERED: NS 500 ML ONE (08:49)
[2017-05-12] MEDS ORDERED: CALCIUM GLUCONATE 1 GM in NS 50 ML IV ONE (09:00)
[2017-05-12 09:34] LABS: CALCIUM 8.5 mg/dL (8.8-10.2); POTASSIUM 3.1 mmol/L (3.5-5.1)
[2017-05-12] MEDS ORDERED: POTASSIUM CHLORIDE 40 MEQ/SWI 40 MEQ/100 ML IVPB IV ONE (10:00)
[2017-05-12] MEDS ORDERED: MAGNESIUM SULFATE 2 GM/S.W.I. 2 GM/50 ML IVPB IV ONE (10:00)
[2017-05-12] MEDS ORDERED: G.I. COCKTAIL PO ONE (14:07)
[2017-05-12] MEDS: FOLIC ACID 1 MG in NS 50 ML IV SCH (15:50)
[2017-05-13] MEDS: PHENERGAN IV PRN ×5 (03:48→20:35)
[2017-05-13] MEDS: CARAFATE LIQUID PO SCH ×4 (03:48→19:44)
[2017-05-13] MEDS: REGLAN IV SCH ×4 (03:48→19:44)
[2017-05-13] MEDS: NUBAIN IV PRN ×5 (03:48→20:35)
[2017-05-13] MEDS: PROTONIX IV SCH ×2 (05:20→18:39)
[2017-05-13] MEDS: HUMULIN R SUBQ SCH ×4 (06:12→21:00)
[2017-05-13 07:03] LABS: CALCIUM 7.9 mg/dL (8.8-10.2); POTASSIUM 2.9 mmol/L (3.5-5.1)
[2017-05-13] MEDS ORDERED: POTASSIUM CHLORIDE 60 MEQ in NS 500 ML IV ONE (08:03)
[2017-05-13] MEDS: PRINIVIL PO SCH (08:28)
[2017-05-13] MEDS: FOLIC ACID 1 MG in NS 50 ML IV SCH (14:49)
[2017-05-13] MEDS: SODIUM CHLORIDE 0.9% INJ SCH (18:39)
[2017-05-13] MEDS ORDERED: POTASSIUM CHLORIDE 40 MEQ/SWI 40 MEQ/100 ML IVPB IV ONE (19:00)
[2017-05-14] MEDS: NUBAIN IV PRN ×6 (01:25→22:19)
[2017-05-14] MEDS: CARAFATE LIQUID PO SCH ×4 (01:26→21:56)
[2017-05-14] MEDS: PHENERGAN IV PRN ×6 (01:26→22:20)
[2017-05-14] MEDS: REGLAN IV SCH ×4 (01:29→21:55)
[2017-05-14] MEDS: PROTONIX IV SCH ×2 (05:16→18:32)
[2017-05-14] MEDS: HUMULIN R SUBQ SCH ×4 (06:03→22:19)
[2017-05-14 06:35] LABS: CALCIUM 7.9 mg/dL (8.8-10.2); POTASSIUM 3.6 mmol/L (3.5-5.1)
[2017-05-14] MEDS: PRINIVIL PO SCH (09:14)
[2017-05-14] MEDS: SODIUM CHLORIDE 0.9% INJ PRN ×3 (09:14→18:31)
[2017-05-14] MEDS: APRESOLINE PO SCH ×4 (09:16→21:55)
[2017-05-14] MEDS: FOLIC ACID 1 MG in NS 50 ML IV SCH (14:15)
[2017-05-14] MEDS: SODIUM CHLORIDE 0.9% INJ SCH (18:31)
[2017-05-15] MEDS: NUBAIN IV PRN ×5 (02:13→20:57)
[2017-05-15] MEDS: PHENERGAN IV PRN ×5 (02:13→20:58)
[2017-05-15] MEDS: REGLAN IV SCH ×4 (02:15→20:39)
[2017-05-15] MEDS: CARAFATE LIQUID PO SCH ×4 (02:16→20:39)
[2017-05-15 05:49] LABS: BASO% 0.2 % (0.0-0.8); EOS% 1.5 % (0.0-10.0); HEMATOCRIT 29.1 % (37.0-47.0); HEMOGLOBIN 9.7 g/dL (12.0-16.0); LYMPH# 1.14 X1000 (1.2-3.4); LYMPH% 17.5 % (20.5-51.1); MANUAL DIFF NEEDED? NO; MCH 26.2 PG (27-31); MCHC 33.3 g/dL (33-37); MCV 78.6 FL (81-99); MONO# 0.27 X1000 (0.11-0.59); MONO% 4.1 % (1.7-9.3); NEUT% 76.7 % (42.2-75.2); PLT 246 X1000 (130-400)
[2017-05-15 05:58] LABS: ALBUMIN 3.3 g/dL (3.5-5.0); CALCIUM 8.4 mg/dL (8.8-10.2); POTASSIUM 3.4 mmol/L (3.5-5.1); TOTAL BILIRUBIN 0.22 mg/dL (0.20-1.00); TOTAL PROTEIN 5.6 g/dL (6.3-8.3)
[2017-05-15] MEDS: PROTONIX IV SCH ×2 (06:10→20:39)
[2017-05-15] MEDS: HUMULIN R SUBQ SCH ×4 (06:13→20:39)
[2017-05-15] MEDS: APRESOLINE PO SCH ×4 (07:50→20:39)
[2017-05-15] MEDS: PRINIVIL PO SCH ×2 (07:50→12:40)
[2017-05-15] MEDS: SODIUM CHLORIDE 0.9% INJ PRN ×4 (07:51→20:58)
[2017-05-15 08:09] LABS: MAGNESIUM 1.8 mg/dL (1.5-2.7)
[2017-05-15] MEDS ORDERED: POTASSIUM CHLORIDE 40 MEQ/SWI 40 MEQ/100 ML IVPB IV ONE (09:00)
[2017-05-15] MEDS ORDERED: G.I. COCKTAIL PO ONE (09:36)
[2017-05-15] MEDS ORDERED: DULCOLAX PR ONE (09:38)
[2017-05-15] MEDS: 1/2 NS 1,000 ML IV SCH ×2 (11:56→20:43)
[2017-05-15] MEDS: MIRALAX PO SCH ×2 (11:57→20:43)
[2017-05-15] MEDS: FOLIC ACID 1 MG in NS 50 ML IV SCH ×2 (11:58→18:17)
[2017-05-15] MEDS: SODIUM CHLORIDE 0.9% INJ SCH (20:39)
[2017-05-16] MEDS: 1/2 NS 1,000 ML IV SCH ×3 (01:36→14:23)
[2017-05-16] MEDS: REGLAN IV SCH ×5 (01:36→20:45)
[2017-05-16] MEDS: CARAFATE LIQUID PO SCH ×4 (01:38→20:44)
[2017-05-16] MEDS: NUBAIN IV PRN ×6 (02:18→23:02)
[2017-05-16] MEDS: PHENERGAN IV PRN ×6 (02:18→23:01)
[2017-05-16] MEDS: SODIUM CHLORIDE 0.9% INJ PRN ×2 (02:18→23:02)
[2017-05-16 05:47] LABS: HEMATOCRIT 25.6 % (37.0-47.0); HEMOGLOBIN 8.6 g/dL (12.0-16.0); MCH 27.3 PG (27-31); MCHC 33.6 g/dL (33-37); MCV 81.3 FL (81-99); MPV 12.5 FL (7.4-10.4); RBC 3.15 XMIL (4.2-5.4)
[2017-05-16 06:08] LABS: CALCIUM 7.9 mg/dL (8.8-10.2); MAGNESIUM 1.6 mg/dL (1.5-2.7); POTASSIUM 3.4 mmol/L (3.5-5.1)
[2017-05-16] MEDS ORDERED: MAGNESIUM SULFATE 2 GM/S.W.I. 2 GM/50 ML IVPB IV ONE ×2 (06:09→06:30)
[2017-05-16] MEDS ORDERED: POTASSIUM CHLORIDE 40 MEQ/SWI 40 MEQ/100 ML IVPB IV ONE ×2 (06:10→06:30)
[2017-05-16] MEDS: HUMULIN R SUBQ SCH ×4 (06:30→20:46)
[2017-05-16] MEDS: APRESOLINE PO SCH ×3 (09:28→18:13)
[2017-05-16] MEDS: SODIUM CHLORIDE 0.9% INJ SCH ×5 (09:28→20:44)
[2017-05-16] MEDS: PRINIVIL PO SCH (09:28)
[2017-05-16] MEDS: PROTONIX IV SCH ×2 (09:28→20:44)
[2017-05-16] MEDS: MIRALAX PO SCH ×2 (09:40→20:45)
[2017-05-16] MEDS: FOLIC ACID 1 MG in NS 50 ML IV SCH (13:21)
[2017-05-17] MEDS: 1/2 NS 1,000 ML IV SCH ×2 (01:42→15:02)
[2017-05-17] MEDS: REGLAN IV SCH ×4 (01:44→20:19)
[2017-05-17] MEDS: CARAFATE LIQUID PO SCH ×4 (01:44→20:19)
[2017-05-17] MEDS: PHENERGAN IV PRN ×5 (03:55→20:48)
[2017-05-17] MEDS: SODIUM CHLORIDE 0.9% INJ PRN ×4 (03:55→16:41)
[2017-05-17] MEDS: NUBAIN IV PRN ×5 (03:55→20:48)
[2017-05-17 06:21] LABS: HEMATOCRIT 25.7 % (37.0-47.0); HEMOGLOBIN 8.6 g/dL (12.0-16.0); MCHC 33.5 g/dL (33-37); MCV 80.8 FL (81-99); MPV 12.9 FL (7.4-10.4); RBC 3.18 XMIL (4.2-5.4)
[2017-05-17 06:40] LABS: MAGNESIUM 1.7 mg/dL (1.5-2.7); POTASSIUM 3.7 mmol/L (3.5-5.1)
[2017-05-17] MEDS: HUMULIN R SUBQ SCH ×4 (07:22→22:42)
[2017-05-17] MEDS: PROTONIX IV SCH ×2 (08:33→20:19)
[2017-05-17] MEDS: SODIUM CHLORIDE 0.9% INJ SCH ×2 (08:33→20:19)
[2017-05-17] MEDS: PRINIVIL PO SCH (08:35)
[2017-05-17] MEDS: APRESOLINE PO SCH ×3 (08:35→16:42)
[2017-05-17] MEDS: MIRALAX PO SCH ×2 (08:50→20:22)
[2017-05-17] MEDS: FOLIC ACID 1 MG in NS 50 ML IV SCH (12:34)
[2017-05-17 16:08] LABS: INR 1.04
[2017-05-17] MEDS ORDERED: CATAPRES-TTS-1 TD SCH (16:15)
[2017-05-17] MEDS ORDERED: LABETALOL IV PRN (20:21)
--- NOTE | 2017-05-17 21:57 | Diag Imaging Result Doc PS360 ---
EXAM: KUB ABDOMEN - 05/17/2017 HISTORY: constipation TECHNIQUE: AP spine abdomen COMPARISON: 03/23/2017 FINDINGS: There is mild gaseous distention of the transverse colon. There is gaseous distention of what may represent sigmoid colon in the pelvis/lower abdomen. The possibility of sigmoid volvulus cannot be entirely excluded. There is some retained fecal debris in the right colon but there is no other excessive retained fecal debris in the colon. There is no abnormal gaseous small bowel distention identified. There are surgical clips at the right upper quadrant. There is an intrauterine device at the midline pelvis which is similar in orientation to the previous exam. IMPRESSION: Mild gaseous distention of transverse colon. Gaseous distention of what may represent sigmoid colon at the pelvis/lower abdomen. The possibility of sigmoid volvulus cannot be entirely excluded. Urinary bladder distended with air may also be a consideration if the patient has had recent instrumentation. Correlation with clinical evaluation is recommended. Results discussed by telephone with Dr. Gregory at 9:53 PM on 05/17/2017. Electronically signed by Vernon Bowen 05/17/2017 9:54 PM
[2017-05-18] MEDS: CARAFATE LIQUID PO SCH ×4 (01:46→22:49)
[2017-05-18] MEDS: PHENERGAN IV PRN ×3 (01:46→18:08)
[2017-05-18] MEDS: REGLAN IV SCH ×4 (01:46→22:48)
[2017-05-18] MEDS: NUBAIN IV PRN ×3 (03:32→18:08)
[2017-05-18] MEDS: 1/2 NS 1,000 ML IV SCH ×2 (03:34→05:01)
[2017-05-18 06:28] LABS: CALCIUM 8.1 mg/dL (8.8-10.2); POTASSIUM 3.3 mmol/L (3.5-5.1)
[2017-05-18 06:29] LABS: ALKALINE PHOSPHATASE 104 U/L (32-104); DIRECT BILIRUBIN < 0.20 mg/dL (0.00-0.20); GOT 10 U/L (10-30); GPT 7 U/L (10-36); MAGNESIUM 1.6 mg/dL (1.5-2.7); TOTAL BILIRUBIN 0.22 mg/dL (0.20-1.00); TOTAL PROTEIN 5.7 g/dL (6.3-8.3)
[2017-05-18] MEDS: HUMULIN R SUBQ SCH ×4 (06:53→22:45)
[2017-05-18] MEDS: LOPRESSOR IV SCH ×3 (07:05→18:11)
[2017-05-18] MEDS ORDERED: MAGNESIUM SULFATE 2 GM/S.W.I. 2 GM/50 ML IVPB IV ONE (07:37)
[2017-05-18] MEDS ORDERED: POTASSIUM CHLORIDE 40 MEQ/SWI 40 MEQ/100 ML IVPB IV ONE (07:37)
--- NOTE | 2017-05-18 08:38 | Diag Imaging Result Doc PS360 ---
EXAM: CT ABDOMEN/PELVIS W/O CONTRAST HISTORY: Possible volvulus TECHNIQUE: CT urogram without contrast with low-dose protocol COMMENT: The current study is compared without of 03/13/2017. There is apparent platelike fibrosis in both lower lobes which has not changed. There is no evidence of hydronephrosis or nephrolithiasis. There has been previous cholecystectomy. There are surgical clips in the anterior abdomen. There is a electronic device with leads in the anterior peritoneal space. Presumably, this is an enteric stimulator of some kind there is some radiopaque material present in the right colon. There is no evidence of appendicitis. There is no evidence of small bowel dilatation. There is a fairly large hiatal hernia. The urinary bladder is distended multiple air bubbles are present within the urinary bladder and there is considerable gas. There is no evidence of free fluid. There is an apparent IUD in the lower uterine segment. The gas in the urinary bladder was not present at the time the previous study. IMPRESSION: Possibility of cystitis cannot be excluded. There is considerable pneumaturia. No evidence of stones or obstructive uropathy. Electronically signed by Napoleon Bearden 05/18/2017 8:36 AM
[2017-05-18] MEDS: PROTONIX IV SCH ×2 (09:10→22:48)
[2017-05-18] MEDS: SODIUM CHLORIDE 0.9% INJ SCH ×3 (09:10→22:48)
[2017-05-18] MEDS: PRINIVIL PO SCH (09:10)
[2017-05-18] MEDS: MIRALAX PO SCH ×3 (09:11→22:47)
[2017-05-18] MEDS: APRESOLINE PO SCH ×3 (09:11→22:46)
[2017-05-18] MEDS ORDERED: NS 250 ML ONE (10:00)
[2017-05-18] MEDS ORDERED: CATAPRES-TTS-2 TD SCH (12:30)
[2017-05-18] MEDS: FOLIC ACID 1 MG in NS 50 ML IV SCH (14:10)
[2017-05-18 15:03] LABS: URINE SOURCE CLEAN CATCH
[2017-05-18 15:13] LABS: BILIRUBIN URINE NEGATIVE (NEGATIVE); BLOOD URINE LARGE (NEGATIVE); GLUCOSE URINE 100 mg/dL (NEGATIVE); LEUKOCYTES URINE LARGE (NEGATIVE); NITRITE URINE NEGATIVE (NEGATIVE); PROTEIN URINE 200 mg/dL (NEGATIVE); SP GRAVITY URINE 1.012; TURBIDITY URINE HAZY (CLEAR); UROBILINOGEN URINE NORMAL (NORMAL)
[2017-05-18 15:15] LABS: URINE MICRO REVIEW NEEDED? YES
[2017-05-18 15:17] LABS: UR EPITHELIAL CELLS <10 /HPF (<10); URINE BACTERIA 4+ /HPF; URINE WBC TNTC /HPF (<10)
[2017-05-18 15:27] LABS: URINE CASTS NONE SEEN
[2017-05-18 15:28] LABS: COLOR YELLOW; URINE CRYSTALS NONE SEEN; URINE SMALL ROUND CELLS NONE SEEN
[2017-05-18] MEDS: ROCEPHIN 1 GM in NS 50 ML IV SCH (17:00)
[2017-05-18] MEDS ORDERED: D10W 1,000 ML IV SCH (18:00)
[2017-05-18] MEDS ORDERED: MAGNESIUM SULFATE IV SCH ×7 (18:00)
[2017-05-18] MEDS ORDERED: [UNRECOGNIZED DRUG - OTHER] IV SCH ×7 (18:00)
[2017-05-18] MEDS ORDERED: TPN ELECTROLYTES IV SCH ×7 (18:00)
[2017-05-18] MEDS ORDERED: POTASSIUM PHOSPHATE IV SCH ×7 (18:00)
[2017-05-18] MEDS: LIPOSYN 20% 250 ML IV SCH (18:10)
[2017-05-18] MEDS: LOVENOX SUBQ SCH (22:49)
[2017-05-19] MEDS: LOPRESSOR IV SCH ×3 (00:54→15:05)
[2017-05-19] MEDS: PHENERGAN IV PRN ×4 (00:54→15:54)
[2017-05-19] MEDS: NUBAIN IV PRN ×3 (00:54→15:54)
[2017-05-19] MEDS: SODIUM CHLORIDE 0.9% INJ PRN ×2 (00:59→12:22)
[2017-05-19] MEDS: CARAFATE LIQUID PO SCH ×3 (04:02→15:55)
[2017-05-19] MEDS: REGLAN IV SCH ×3 (04:02→15:55)
[2017-05-19 06:22] LABS: MANUAL DIFF NEEDED? NO
[2017-05-19 06:34] LABS: BASO% 0.3 % (0.0-0.8); EOS# 0.18 X1000 (0.0-0.7); HEMATOCRIT 25.1 % (37.0-47.0); HEMOGLOBIN 8.6 g/dL (12.0-16.0); LYMPH% 27.1 % (20.5-51.1); MCH 26.7 PG (27-31); MCHC 34.3 g/dL (33-37); MONO# 0.56 X1000 (0.11-0.59); MONO% 9.5 % (1.7-9.3); MPV 12.8 FL (7.4-10.4); NEUT% 60.1 % (42.2-75.2); PLT 228 X1000 (130-400); RBC 3.22 XMIL (4.2-5.4)
[2017-05-19 06:52] LABS: ALBUMIN 2.8 g/dL (3.5-5.0); CALCIUM 7.9 mg/dL (8.8-10.2); MAGNESIUM 1.9 mg/dL (1.5-2.7); POTASSIUM 3.4 mmol/L (3.5-5.1); TOTAL BILIRUBIN 0.14 mg/dL (0.20-1.00); TOTAL PROTEIN 5.3 g/dL (6.3-8.3)
[2017-05-19] MEDS ORDERED: POTASSIUM CHLORIDE 40 MEQ/SWI 40 MEQ/100 ML IVPB IV ONE (07:04)
[2017-05-19] MEDS: HUMULIN R SUBQ SCH ×3 (08:03→18:18)
[2017-05-19] MEDS ORDERED: G.I. COCKTAIL PO ONE (09:50)
[2017-05-19] MEDS: MIRALAX PO SCH (10:29)
[2017-05-19] MEDS: APRESOLINE PO SCH ×4 (10:43→17:32)
[2017-05-19] MEDS: PRINIVIL PO SCH (10:43)
[2017-05-19] MEDS: PROTONIX IV SCH (12:29)
[2017-05-19] MEDS: SODIUM CHLORIDE 0.9% INJ SCH ×2 (12:29→15:54)
[2017-05-19] MEDS: FOLIC ACID 1 MG in NS 50 ML IV SCH (15:53)
[2017-05-19] MEDS: ROCEPHIN 1 GM in NS 50 ML IV SCH (18:11)
[2017-05-19] MEDS: [UNRECOGNIZED DRUG - OTHER] IV SCH ×7 (19:28)
[2017-05-19] MEDS: MAGNESIUM SULFATE IV SCH ×7 (19:28)
[2017-05-19] MEDS: TPN ELECTROLYTES IV SCH ×7 (19:28)
[2017-05-19] MEDS: POTASSIUM PHOSPHATE IV SCH ×7 (19:28)
[2017-05-19] MEDS: LOVENOX SUBQ SCH (19:32)
[2017-05-20] MEDS: LIPOSYN 20% 250 ML IV SCH ×2 (00:45→18:51)
[2017-05-20] MEDS: LOPRESSOR IV SCH ×5 (00:45→18:46)
[2017-05-20] MEDS: HUMULIN R SUBQ SCH ×6 (00:46→20:15)
[2017-05-20] MEDS: REGLAN IV SCH ×6 (00:46→20:07)
[2017-05-20] MEDS: CARAFATE LIQUID PO SCH ×5 (00:46→20:06)
[2017-05-20] MEDS: NUBAIN IV PRN ×4 (01:09→23:46)
[2017-05-20] MEDS: PHENERGAN IV PRN ×5 (01:11→23:46)
[2017-05-20] MEDS: PROTONIX IV SCH ×3 (01:11→20:07)
[2017-05-20] MEDS: MIRALAX PO SCH ×3 (01:12→20:06)
[2017-05-20 05:52] LABS: MANUAL DIFF NEEDED? NO
[2017-05-20 05:58] LABS: BASO% 0.3 % (0.0-0.8); EOS# 0.18 X1000 (0.0-0.7); EOS% 3.1 % (0.0-10.0); HEMATOCRIT 26.6 % (37.0-47.0); HEMOGLOBIN 8.9 g/dL (12.0-16.0); LYMPH# 2.23 X1000 (1.2-3.4); LYMPH% 38.6 % (20.5-51.1); MCH 26.3 PG (27-31); MCHC 33.5 g/dL (33-37); MCV 78.7 FL (81-99); MONO# 0.56 X1000 (0.11-0.59); MONO% 9.7 % (1.7-9.3); MPV 12.2 FL (7.4-10.4); NEUT% 48.3 % (42.2-75.2); PLT 208 X1000 (130-400); RBC 3.38 XMIL (4.2-5.4)
[2017-05-20 06:24] LABS: CALCIUM 8.4 mg/dL (8.8-10.2); POTASSIUM 3.8 mmol/L (3.5-5.1)
[2017-05-20] MEDS: APRESOLINE PO SCH ×3 (08:30→18:47)
[2017-05-20] MEDS: SODIUM CHLORIDE 0.9% INJ SCH ×2 (08:30→20:07)
[2017-05-20] MEDS: PRINIVIL PO SCH (08:30)
[2017-05-20] MEDS: SODIUM CHLORIDE 0.9% INJ PRN ×3 (08:46→18:47)
[2017-05-20] MEDS: FOLIC ACID 1 MG in NS 50 ML IV SCH (13:39)
[2017-05-20] MEDS ORDERED: NS 500 ML ONE (16:02)
[2017-05-20] MEDS: MAXIPIME 1 GM in NS 50 ML IV SCH (16:06)
[2017-05-20] MEDS: MAGNESIUM SULFATE IV SCH ×7 (18:51)
[2017-05-20] MEDS: TPN ELECTROLYTES IV SCH ×7 (18:51)
[2017-05-20] MEDS: POTASSIUM PHOSPHATE IV SCH ×7 (18:51)
[2017-05-20] MEDS: [UNRECOGNIZED DRUG - OTHER] IV SCH ×7 (18:51)
[2017-05-21] MEDS: LOPRESSOR IV SCH ×4 (02:41→20:11)
[2017-05-21] MEDS: REGLAN IV SCH ×4 (02:43→20:09)
[2017-05-21] MEDS: MAXIPIME 1 GM in NS 50 ML IV SCH ×2 (02:44→13:30)
[2017-05-21] MEDS: CARAFATE LIQUID PO SCH ×4 (02:44→20:09)
[2017-05-21 05:56] LABS: HEMATOCRIT 25.6 % (37.0-47.0); HEMOGLOBIN 8.6 g/dL (12.0-16.0); MCH 26.5 PG (27-31); MCHC 33.6 g/dL (33-37); MPV 12.8 FL (7.4-10.4); RBC 3.24 XMIL (4.2-5.4)
[2017-05-21] MEDS: HUMULIN R SUBQ SCH ×4 (06:08→22:58)
[2017-05-21] MEDS: NUBAIN IV PRN ×3 (06:09→18:18)
[2017-05-21] MEDS: PHENERGAN IV PRN ×4 (06:09→20:10)
[2017-05-21 06:42] LABS: CALCIUM 7.7 mg/dL (8.8-10.2); POTASSIUM 3.7 mmol/L (3.5-5.1)
[2017-05-21] MEDS: LEVEMIR SUBQ SCH ×2 (09:31→22:59)
[2017-05-21] MEDS: SODIUM CHLORIDE 0.9% INJ SCH (09:33)
[2017-05-21] MEDS: PROTONIX IV SCH ×2 (09:33→22:59)
[2017-05-21] MEDS: APRESOLINE PO SCH ×3 (09:34→16:15)
[2017-05-21] MEDS: MIRALAX PO SCH ×2 (09:34→20:11)
[2017-05-21] MEDS: PRINIVIL PO SCH (09:34)
[2017-05-21] MEDS: SODIUM CHLORIDE 0.9% INJ PRN ×3 (11:55→20:09)
[2017-05-21] MEDS: FOLIC ACID 1 MG in NS 50 ML IV SCH (13:39)
[2017-05-21] MEDS: POTASSIUM PHOSPHATE IV SCH ×7 (18:19)
[2017-05-21] MEDS: TPN ELECTROLYTES IV SCH ×7 (18:19)
[2017-05-21] MEDS: MAGNESIUM SULFATE IV SCH ×7 (18:19)
[2017-05-21] MEDS: [UNRECOGNIZED DRUG - OTHER] IV SCH ×7 (18:19)
[2017-05-21] MEDS: LIPOSYN 20% 250 ML IV SCH (19:29)
[2017-05-22] MEDS: MELATONIN PO ONE ×3 (00:44→01:06)
[2017-05-22] MEDS: MAXIPIME 1 GM in NS 50 ML IV SCH ×2 (00:45→16:05)
[2017-05-22] MEDS: LOPRESSOR IV SCH ×4 (00:48→20:03)
[2017-05-22] MEDS: NUBAIN IV PRN ×3 (02:17→21:52)
[2017-05-22] MEDS: REGLAN IV SCH ×4 (02:17→21:55)
[2017-05-22] MEDS: CARAFATE LIQUID PO SCH ×4 (02:18→21:55)
[2017-05-22] MEDS: SODIUM CHLORIDE 0.9% INJ PRN ×3 (05:50→21:55)
[2017-05-22] MEDS: PHENERGAN IV PRN ×3 (05:50→14:20)
[2017-05-22 06:21] LABS: HEMATOCRIT 24.7 % (37.0-47.0); HEMOGLOBIN 8.2 g/dL (12.0-16.0); MCH 27.4 PG (27-31); MCHC 33.2 g/dL (33-37); MCV 82.6 FL (81-99); PLT 159 X1000 (130-400); RBC 2.99 XMIL (4.2-5.4)
[2017-05-22 06:34] LABS: CALCIUM 8.2 mg/dL (8.8-10.2); POTASSIUM 3.9 mmol/L (3.5-5.1)
[2017-05-22] MEDS: HUMULIN R SUBQ SCH ×4 (06:53→21:53)
[2017-05-22] MEDS: PROTONIX IV SCH ×2 (08:57→21:55)
[2017-05-22] MEDS: LEVEMIR SUBQ SCH ×2 (08:58→21:53)
[2017-05-22] MEDS: SODIUM CHLORIDE 0.9% INJ SCH ×2 (09:01→14:20)
[2017-05-22] MEDS ORDERED: HUMULIN R IV ONE (13:31)
[2017-05-22] MEDS: FOLIC ACID 1 MG in NS 50 ML IV SCH (14:00)
[2017-05-22] MEDS ORDERED: OFIRMEV 1000 MG/ISOTONIC SOLN 1,000 MG/100 ML BOTTLE IV ONE (14:56)
[2017-05-22] MEDS: APRESOLINE PO SCH ×2 (15:59→17:37)
[2017-05-22] MEDS: MIRALAX PO SCH ×2 (16:13→21:55)
[2017-05-22] MEDS: PRINIVIL PO SCH (16:14)
[2017-05-22] MEDS ORDERED: DIPRIVAN 1% ONE (17:22)
[2017-05-22] MEDS ORDERED: VANCOMYCIN IV PER PHARMACY MISC SCH (17:30)
[2017-05-22] MEDS ORDERED: VANCOMYCIN 1,600 MG in NS 250 ML IV ONE (18:00)
[2017-05-22] MEDS: [UNRECOGNIZED DRUG - OTHER] IV SCH ×7 (18:50)
[2017-05-22] MEDS: MAGNESIUM SULFATE IV SCH ×7 (18:50)
[2017-05-22] MEDS: TPN ELECTROLYTES IV SCH ×7 (18:50)
[2017-05-22] MEDS: POTASSIUM PHOSPHATE IV SCH ×7 (18:50)
[2017-05-22] MEDS: LIPOSYN 20% 250 ML IV SCH (18:50)
[2017-05-22 22:35] LABS: URINE CULTURE NEEDED? NO; URINE MICRO REVIEW NEEDED? NO; URINE SOURCE CLEAN CATCH
[2017-05-22 23:10] LABS: BILIRUBIN URINE NEGATIVE (NEGATIVE); BLOOD URINE NEGATIVE (NEGATIVE); COLOR YELLOW; GLUCOSE URINE >1000 mg/dL (NEGATIVE); LEUKOCYTES URINE NEGATIVE (NEGATIVE); NITRITE URINE NEGATIVE (NEGATIVE); PH URINE 6.5; PROTEIN URINE 100 mg/dL (NEGATIVE); SP GRAVITY URINE 1.017; TURBIDITY URINE HAZY (CLEAR); UROBILINOGEN URINE NORMAL (NORMAL)
[2017-05-22 23:11] LABS: UR EPITHELIAL CELLS <10 /HPF (<10); URINE BACTERIA NEGATIVE /HPF; URINE RBC <10 /HPF (<10); URINE WBC <10 /HPF (<10)
[2017-05-23] MEDS: PHENERGAN IV PRN ×3 (00:15→10:53)
[2017-05-23] MEDS: MAXIPIME 1 GM in NS 50 ML IV SCH (00:16)
[2017-05-23] MEDS: LOPRESSOR IV SCH ×2 (02:31→06:50)
[2017-05-23] MEDS: REGLAN IV SCH ×2 (03:05→10:39)
[2017-05-23] MEDS: CARAFATE LIQUID PO SCH ×2 (03:05→10:39)
[2017-05-23] MEDS: NUBAIN IV PRN (03:11)
[2017-05-23 06:47] LABS: HEMATOCRIT 24.3 % (37.0-47.0); MCH 27.1 PG (27-31); MCHC 32.9 g/dL (33-37); MCV 82.4 FL (81-99); MPV 13.2 FL (7.4-10.4); RBC 2.95 XMIL (4.2-5.4)
[2017-05-23] MEDS: HUMULIN R SUBQ SCH ×2 (06:52→11:54)
[2017-05-23 06:59] LABS: MAGNESIUM 1.9 mg/dL (1.5-2.7); POTASSIUM 3.8 mmol/L (3.5-5.1); PREALBUMIN 14.8 mg/dL (20-40)
[2017-05-23] MEDS: APRESOLINE PO SCH (10:39)
[2017-05-23] MEDS: PROTONIX IV SCH (10:39)
[2017-05-23] MEDS: MIRALAX PO SCH (10:39)
[2017-05-23] MEDS: PRINIVIL PO SCH (10:39)
[2017-05-23] MEDS: SODIUM CHLORIDE 0.9% INJ SCH (10:39)
[2017-05-23] MEDS: LEVEMIR SUBQ SCH (10:53)
[2017-05-23] MEDS: SODIUM CHLORIDE 0.9% INJ PRN (10:53)
[2017-05-23 13:26] VITALS: BP 141/91
[2017-05-23] MEDS ORDERED: VANCOMYCIN 1,200 MG in NS 250 ML IV SCH (18:00)
== END 2017-05-23 13:53 | disposition short-term general hospital (02) ==
LOC: ED 23:04 → SUATTDRO 05-07 02:24 → 4N 05-07 02:24
PROVIDERS: ATTEND Internal Medicine

== ENCOUNTER 2017-06-03 20:12 | Observation (INO) ==
[2017-06-03] MEDS ORDERED: ZOFRAN ONE (20:30)
[2017-06-03] MEDS ORDERED: ZOFRAN IV ONE (20:39)
[2017-06-03] MEDS ORDERED: NS 1,000 ML IV ONE (21:51)
[2017-06-03 22:00] LABS: MANUAL DIFF NEEDED? NO
[2017-06-03 22:09] LABS: BASO% 0.3 % (0.0-0.8); EOS# 0.14 X1000 (0.0-0.7); EOS% 2.3 % (0.0-10.0); HEMATOCRIT 29.2 % (37.0-47.0); HEMOGLOBIN 9.7 g/dL (12.0-16.0); IMM GRAN# 0.02 X1000 (0.0-0.04); IMM GRAN% 0.3 % (0.0-0.5); LYMPH# 2.29 X1000 (1.2-3.4); LYMPH% 36.9 % (20.5-51.1); MCH 26.6 PG (27-31); MCHC 33.2 g/dL (33-37); MONO# 0.37 X1000 (0.11-0.59); MPV 12.1 FL (7.4-10.4); NEUT% 54.2 % (42.2-75.2); PLT 376 X1000 (130-400); RBC 3.65 XMIL (4.2-5.4)
[2017-06-03 22:25] LABS: ALBUMIN 3.9 g/dL (3.5-5.0); CALCIUM 8.7 mg/dL (8.8-10.2); POTASSIUM 3.2 mmol/L (3.5-5.1); TOTAL BILIRUBIN 0.25 mg/dL (0.20-1.00); TOTAL PROTEIN 7.2 g/dL (6.3-8.3)
--- NOTE | 2017-06-03 22:53 | Diag Imaging Result Doc PS360 ---
EXAM: CT ABDOMEN/PELVIS W/O CONTRAST HISTORY: r/o intestinal obstruction, gas gastric pacemaker TECHNIQUE: CT abdomen and pelvis without contrast. Dose reduction protocol. COMPARISON: 05/18/2017 FINDINGS: The gallbladder has been. No focal abnormality to the organs in the upper abdomen identified on this noncontrasted exam. Normal noncontrasted liver, spleen, and pancreas. Normal adrenal glands. The distal esophagus is filled with fluid. No renal stones. No hydronephrosis. Normal aorta. No bowel obstruction. Urinary bladder is distended and appears normal. Possible malpositioned intrauterine device. Electronic device anteriorly is unchanged. No abscess. IMPRESSION: 1.No air within the urinary bladder on the current exam. No evidence of cystitis. 2.Cholecystectomy 3.Distal esophagus distended with fluid 4.No bowel obstruction. Electronically signed by Hebert Soto 06/03/2017 10:51 PM
[2017-06-04] MEDS ORDERED: PHENERGAN IV ONE (00:05)
[2017-06-04] MEDS ORDERED: SODIUM CHLORIDE 0.9% INJ ONE (00:05)
[2017-06-04 00:48] LABS: URINE MICRO REVIEW NEEDED? NO; URINE SOURCE VOIDED
[2017-06-04 00:56] LABS: BILIRUBIN URINE NEGATIVE (NEGATIVE); BLOOD URINE TRACE (NEGATIVE); COLOR YELLOW; GLUCOSE URINE >1000 mg/dL (NEGATIVE); LEUKOCYTES URINE NEGATIVE (NEGATIVE); NITRITE URINE NEGATIVE (NEGATIVE); PH URINE 6.5; PROTEIN URINE 200 mg/dL (NEGATIVE); SP GRAVITY URINE 1.013; TURBIDITY URINE HAZY (CLEAR); UR EPITHELIAL CELLS >10 /HPF (<10); URINE BACTERIA 1+ /HPF; URINE RBC <10 /HPF (<10); URINE WBC <10 /HPF (<10); UROBILINOGEN URINE NORMAL (NORMAL)
[2017-06-04] MEDS ORDERED: MORPHINE IV ONE (02:44)
[2017-06-04] MEDS ORDERED: SODIUM CHLORIDE 0.9% INJ PRN (05:37)
[2017-06-04] MEDS ORDERED: NS 1,000 ML IV ONE (05:37)
[2017-06-04] MEDS ORDERED: PHENERGAN IV PRN (05:37)
[2017-06-04] MEDS ORDERED: LABETALOL ONE (06:10)
[2017-06-04] MEDS: LABETALOL IV PRN ×2 (06:10→09:39)
[2017-06-04] MEDS ORDERED: LABETALOL IV ONE ×2 (06:33→10:39)
[2017-06-04 07:38] LABS: HEMATOCRIT 28.3 % (37.0-47.0); HEMOGLOBIN 9.2 g/dL (12.0-16.0); MCH 27.1 PG (27-31); MCHC 32.5 g/dL (33-37); MCV 83.5 FL (81-99); MPV 11.6 FL (7.4-10.4); RBC 3.39 XMIL (4.2-5.4)
[2017-06-04] MEDS ORDERED: ZOFRAN IV PRN (07:53)
[2017-06-04 07:54] LABS: CALCIUM 8.2 mg/dL (8.8-10.2); MAGNESIUM 1.8 mg/dL (1.5-2.7); POTASSIUM 3.6 mmol/L (3.5-5.1)
[2017-06-04] MEDS ORDERED: PROTONIX IV SCH (08:00)
[2017-06-04] MEDS ORDERED: REGLAN IV SCH ×2 (08:00→08:31)
[2017-06-04] MEDS ORDERED: SODIUM CHLORIDE 0.9% INJ SCH (08:00)
[2017-06-04] MEDS ORDERED: SODIUM CHLORIDE 0.9% 10 ML ONE (08:55)
[2017-06-04] MEDS ORDERED: PRINIVIL PO SCH (09:00)
[2017-06-04] MEDS ORDERED: CARAFATE PO SCH (09:00)
[2017-06-04] MEDS ORDERED: APRESOLINE IV ONE (10:39)
[2017-06-04] MEDS ORDERED: CARDENE 20 MG/NS 20 MG/200 ML PIGGYBACK IV SCH (11:00)
[2017-06-04] MEDS ORDERED: HUMALOG SUBQ SCH (11:00)
[2017-06-04 13:45] VITALS: BP 119/78
--- NOTE | 2017-06-04 16:51 | HISTORY AND PHYSICAL ---
PRIMARY CARE PROVIDERS: Dr. Koo with the [facility]. HAND SPLITTER: Dr. Franny Lewis. TIME: 444 CHIEF COMPLAINT: Nausea and vomiting. HISTORY OF PRESENT ILLNESS: Ms. Bobby is a 41-year-old female who has a past medical history of gastroparesis and poorly-controlled insulin-dependent diabetes mellitus. She is well known to our service and was just most recently admitted 05/07/2017 for intractable nausea, vomiting and gastroparesis. Ultimately the patient was transferred to [facility] due to they were unable to obtain her a bed at the [facility] in [place]. She does see Dr. Ghassan Stanford who is her systems operator in [place] who placed her gastric pacemaker. Ultimately she was transferred from [facility] to the [facility] in [place] and was discharged on MondayJune 02. She reports while at the [facility] that they did make adjustments to her gastric pacemaker. She states that starting yesterday being June 03 that she had nausea and vomiting. She reported 5 episodes of this prior to arrival to the ER. She denies any hematemesis, hematochezia or melena. She does report some abdominal pain that is periumbilical and epigastric in location that she describes as intermittent and sharp. In the ER they did treat her with antiemetics and fluids though she did still experience some nausea and a few episodes of vomiting. ER physician did contact us for admission. We did contact Dr. Lewis, the patient's systems operator and informed her of the patient's current status and her being in the ER. Dr. Lewis did agree that the patient needed to be admitted for symptomatic treatment though did recommend for us to try to obtain acceptance and transfer to the [facility] in [place] where they were able to make adjustments to her gastric pacemaker. Though if the patient is unable to have a bed obtained at [facility] that we will admit her here for further treatment and evaluation until a bed did become available. We have implemented the process of trying to get the patient transferred to the [facility] in [place] at this time though until this is able to be completed she will be admitted under observation status for further treatment, evaluation of her gastroparesis and intractable nausea and vomiting. REVIEW OF SYSTEMS: The patient did report some dizziness as well as headache though denied any chest pain, shortness of breath, cough, diarrhea. She denied any dysuria or urinary frequency. She denies any pain, numbness, tingling or swelling in extremities. She denies any fever, body aches or chills. She denies any constipation. PAST MEDICAL HISTORY: 1. Severe diabetic gastroparesis with a gastric pacemaker. 2. Poorly controlled insulin-dependent diabetes mellitus. 3. Hypertension. 4. Diabetic neuropathy. 5. Chronic anemia. 6. Depression. 7. Chronic kidney disease stage 3. 8. Esophageal strictures. PAST SURGICAL HISTORY: 1. Cholecystectomy. 2. Gastric stimulator. 3. Port-A-Cath placement and removal secondary to infection. The patient now has a 2nd Port-A- Cath placed in the right chest. 4. J-tube placement and removal. 5. Multiple EGDs with esophageal dilation. SOCIAL HISTORY: The patient denies any tobacco use. She does have a history of alcohol use on a social basis and has a history of marijuana use as well. FAMILY HISTORY: Positive for her mother and brother both having diabetes with gastroparesis. Her mother also has a history of coronary artery disease, colon polyps, and diverticulosis. ALLERGIES: Patient has no known allergies. HOME MEDICATIONS: 1. Ambien 10 mg p.o. at bedtime p.r.n. for sleep. 2. Carafate 1 g p.o. 4 times a day. 3. Phenergan 25 mg p.r. q.6 hours p.r.n. nausea. 4. Reglan 10 mg p.o. q.6 hours. 5. Lisinopril 10 mg p.o. daily. 6. Humulin R subcu per sliding scale. 7. Lantus 20 units subcu at bedtime. 8. [place] 10 mg 1 p.o. q.6 hours p.r.n. for pain. DIAGNOSTIC DATA: Laboratory results. White blood cell count is 6.2, hemoglobin 9.7, hematocrit 29.2, platelet count is 376,000. Sodium 143, potassium 3.2 chloride 106, bicarb 25, BUN 8, creatinine 1.2, glucose 167, calcium is 8.7. Liver function tests within normal limits except for alkaline phosphatase is slightly elevated at 109. Serum acetone level was negative. Urinalysis was obtained via clean catch was positive for protein, greater than 1000 glucose, ketones, trace blood, greater than 10 epithelial cells and 1+ bacteria. It was negative for nitrites, leukocytes or white blood cells. CT abdomen and pelvis without contrast showed no air within the urinary bladder on the current exam. No evidence of cystitis. There has been a cholecystectomy. The distal esophagus is distended with fluid. No bowel obstruction. This is per Radiology. PHYSICAL EXAMINATION: VITAL SIGNS: Temperature 98.4 degrees, heart rate 90, respirations 18, blood pressure is 168/123, oxygen saturation is 98% room air. GENERAL: Ms. Bobby is a pleasant 41-year-old female. She was resting in the ER stretcher. She was in no acute distress. She was awake, alert and able to answer all questions appropriately. HEENT: Head is atraumatic, normocephalic. Pupils are equal, round, reactive to light, were 3 mm bilaterally and brisk. Oral mucosa is moist. Oropharynx is clear. NECK: Supple. Trachea midline. No carotid bruits noted upon auscultation bilaterally. CARDIOVASCULAR: Patient has normal S1, S2. No murmurs, gallops, rubs appreciated with a regular rate and rhythm. PULMONARY: Patient has symmetrical chest expansion bilaterally. Lung sounds are clear to auscultation in bilateral full bashir. ABDOMEN: Soft. Nondistended. The patient did report some tenderness upon palpation in the periumbilical and epigastric area though no rebound tenderness noted. Bowel sounds were present in all 4 quadrants though were hypoactive. EXTREMITIES: No cyanosis, clubbing, or edema noted. Pulse, motor and sensory are intact in all extremities. Pedal pulses were 3+ bilaterally. INTEGUMENTARY: Patient's skin color is normal for her race, is dry and intact. No lesions or sores noted. NEUROLOGICAL: Patient is alert and oriented to person, place, time, and situation. Cranial nerves 2-12 are grossly intact. ASSESSMENT AND PLAN: 1. Gastroparesis. The patient has just recently been discharged from the [facility] on June 02 for which she did have her gastric pacemaker adjusted. We are at this time trying to obtain transfer and acceptance to the [facility] for further management of this. We will go ahead and continue with management of her gastroparesis with Protonix 40 mg IV q.12 hours as well as Reglan. She will be on strict NPO diet at this time given that her CT did show that she does have distal esophagus distended with fluid. We have placed a consult with Dr. Ruggiero with gastroenterology and will await his evaluation further recommendations for management at this time. 2. Intractable nausea and vomiting. We will continue with Phenergan and Zofran p.r.n. as well as above treatment mentioned for gastroparesis and will continue to follow. She also will placed on gentle fluid resuscitation with normal saline at 100 mL/h. 3. Hypertension. The patient has had nausea, vomiting, has not been able to take her oral antihypertensive medication. She is going to be strict NPO at this time so we will go ahead and implement p.r.n. orders for labetalol and will continue to follow closely. 4. Insulin-dependent diabetes mellitus. We will go ahead and place her on a sliding scale insulin and we will monitor fingerstick blood sugars closely. Given that the patient will be strict NPO at this time we did hold her long-acting insulin. 5. Chronic kidney disease. This appears to be stable at this time. We will continue to monitor. 6. Deep vein thrombosis prophylaxis provided with SCDs. She will be placed on the medical floor with telemetry. We will have vital signs q.4 hours. Further orders and recommendations pending hospital course, diagnostic studies and physician evaluation. Dictated by NELL Gordon for Susie Smith MD cc: Susie Smith MD MTDD
--- NOTE | 2017-06-07 05:33 | DISCHARGE SUMMARY ---
ADMISSION DATE: 06/04/2017 DISCHARGE DATE: 06/04/2017 FINAL DISCHARGE DIAGNOSES: 1. Severe diabetic gastroparesis. 2. Distended distal esophagus. 3. Diabetes mellitus type 2. 4. Uncontrolled hypertension. 5. Chronic anemia. 6. Diabetic neuropathy. 7. History of esophageal strictures. 8. Stage 3 chronic kidney disease. HOSPITAL COURSE: Ms. Bobby is a 41-year-old female with a history of severe diabetic gastroparesis with a gastric pacemaker who presented to the ER with a chief complaint of persistent nausea and vomiting. The patient has had multiple admissions to [facility] for this issue. The patient was evaluated in the ER and a CT of the abdomen and pelvis was done that showed that the distal esophagus was distended with fluid. The case was discussed with Dr. Lewis who recommended transfer to the [facility] where the patient to be seen by Dr. Stanford a automobile radio repairer who placed the patient's gastric pacemaker. The patient likely needs adjustment of this pacemaker. A call was placed to the [facility] at which time Dr. Rutherford the on-call medical doctor accepted the patient for transfer to the [facility]. The patient was transferred to the [facility] on 06/04/2017. cc: Debra Maravilla MD
--- NOTE | 2017-06-26 14:50 | PROVIDER DOCUMENTATION ---
This chart was entered by Vanita Morgan Scribe, acting as scribe for Boaz Cleary DO. HPI-Abdominal Pain/GI Problem <Isaiah Barnard - Last Filed: 06/04/17 03:55> <Aashish Conderamon Ocasio - Last Filed: 06/04/17 08:22> - General Source: patient - History of Present Illness-ABD Nature of Presenting Problems: Patient is a 41 year old female who presents in the ED with complaints of abdominal pain. She states she began having nausea/vomiting yesterday, has had five episodes of vomiting since onset, and has been constipated for four days. She also states she has had abdominal pain, is not passing gas, and last ate at 10:00 p.m. She reports history of gastroparesis with a gastric pacemaker, and reports she last had her gastric pacemaker checked one week ago in [place] with no malfunction at that time. Denies other symptoms. Abdominal Pain Onset Location: reports: generalized abdomen Pain Radiation: reports: no radiation Quality of Pain: reports: aching Severity in ED: reports: mild, moderate Onset/Duration: reports: gradual, 4 days ago Timing: reports: still present, changing over time, getting worse Activities at Onset: reports: none Exposure to sick contacts?: No Modifying Factors: improves with: nothing Associated Symptoms: reports: constipation, nausea, vomiting Last BM: 4 days ago Dark Stools Present?: reports: none noticed. denies: maroon, black, tarry, bright red blood, other Rectal Bleeding: reports: none. denies: bleeding without stool, bright red blood on paper, blood mixed with stool, blood streaks on stool, bloody diarrhea , other # of Diarrhea Episodes: 0 Rectal Pain: reports: none. denies: known anal fissure(s), known hemorrhoids, fistula, abscess, r/t intercourse, r/t foreign body, other # of Vomiting Episodes: 5 Bruising or Bleeding Gums?: No Similar Symptoms Previously?: No Recently seen or treated by another doctor?: No <Boaz Cleary - Last Filed: 06/26/17 14:50> - General Chief Complaint: Vomiting Stated Complaint: CONSTIPATION Time Seen by Provider: 06/03/17 21:20 Allergies/Adverse Reactions: Patient Allergies Allergy/AdvReac Type Severity Reaction Status Date / Time No Known Allergies Allergy Verified 06/13/17 20:17 Home Medications: Home Medication List Medication Instructions Recorded Confirmed Last Taken Type Insulin Human Regular [Humulin R] 1 unit SUBQ DIRECTED 12/06/14 06/03/17 History Promethazine [Phenergan] 25 mg ID Q6H PRN PRN #20 supp 02/11/16 06/03/17 Rx Zolpidem [Ambien] 10 mg PO HS PRN PRN #20 04/21/16 06/03/17 05/30/17 Rx Hydrocodone/APAP 10 mg/325 mg 1 each PO Q6H PRN PRN #0 tablet 07/25/16 06/03/17 05/30/17 Rx [[place]-10] Insulin Glargine [Lantus] 20 unit SUBQ QHS #0 insuln.pen 07/25/16 06/03/1705/30 Rx Metoclopramide HCl [Reglan] 5 mg PO TID #90 tablet 03/18/17 06/03/17 05/30/17 Rx Sucralfate [Carafate] 1 gm PO 4XDAY #120 tablet 03/26/17 06/03/17 05/30/17 Rx LISINOpril [Prinivil] 10 mg PO DAILY 05/11/17 06/03/17 05/30/17 History Metoclopramide [Reglan] 10 mg PO Q6HR #8 tablet 05/30/17 06/03/17 Unknown Rx Review of Systems - Adult - REVIEW OF SYSTEMS - ADULT Constitutional: reports: no symptoms reported Eyes: reports: no symptoms reported Ears, Nose, Mouth & Throat: reports: no symptoms reported Cardiovascular: reports: no symptoms reported Respiratory: reports: no symptoms reported Gastrointestinal: reports: see HPI, abdominal pain, constipation, nausea, vomiting Genitourinary: reports: no symptoms reported Musculoskeletal: reports: no symptoms reported Integumentary: reports: no symptoms reported Neurological: reports: no symptoms reported Psychiatric: reports: no symptoms reported Endocrine: reports: no symptoms reported Hematologic/Lymphatic: reports: no symptoms reported Allergic/Immunologic: reports: no symptoms reported All Other Systems: Reviewed and Negative <Boaz Cleary - Last Filed: 06/26/17 14:50> Past History - Adult - PAST MEDICAL HISTORY-ADULT Review of Records: reports: Nursing Assessment Review, Medications Reviewed Major Childhood Illnesses: reports: denies history Cardiovascular: reports: HTN, hyperlipidemia Respiratory: reports: denies history Gastrointestinal: reports: GERD (with esophagitis and stenosis), GI bleed, ulcer , other (diabetic gastroparesis, erosive gastritis and esophagitis; gastric pacemaker) Obstetrical/Gynecological: reports: denies history Genitourinary: reports: other (ammenorrhea for 1 year) Musculoskeletal: reports: denies history Neurological: reports: other (DM neuropathy) Psychiatric: reports: anxiety, depression Endocrine/Immune: reports: anemia, Diabetes Other Conditions: reports: denies history Additional History: frequent ER visits - PRIOR SURGERIES/PROCEDURES Surgical/Procedure History: reports: cholecystectomy, indwelling device ( Portacath), other (gastric stimulator) - IMMUNIZATION STATUS Childhood Immunizations: See Nurse Assessment Flu Vaccine: See Nurse Assessment - FAMILY HISTORY Family History: reviewed, not pertinent - SOCIAL HISTORY Smoking: denies Substance Use: none/never Alcohol Use Frequency: occasionally Living Situation: family <MillydiamondBoaz newman - Last Filed: 06/26/17 14:50> Physical Exam-General - PHYSICAL EXAM-ADULT Initial Vital Signs Reviewed: Yes - CONSTITUTIONAL General Appearance: alert, no apparent distress - EYES Eyes: PERRL/EOMI, pink conjunctivae - HEAD, EARS, NOSE, MOUTH & THROAT HENMT: normocephalic/atraumatic, moist mucous membranes - NECK Neck: non-tender, full range of motion, supple, normal inspection - RESPIRATORY Respiratory: chest non-tender, lungs clear, normal breath sounds, no pleuratic chest pain, no respiratory distress, no accessory muscle use - CARDIOVASCULAR Cardiovascular: regular rate, rhythm, no edema, no gallop, no JVD, no murmur - GASTROINTESTINAL (ABDOMEN) Abdominal Exam: soft, no organomegaly, no pulsatile mass, tenderness (lower abdominal tenderness to palpation) - LYMPHATIC Lymphatic: no adenopathy - MUSCULOSKELETAL Back Exam: normal inspection, no CVA tenderness, no vertebral tenderness Extremity: normal range of motion, non-tender - SKIN Integumentary: normal color, normal turgor, warm/dry - NEUROLOGIC Neurologic: grossly normal, no motor/sensory deficits - PSYCHIATRIC Psych/Mental Status: normal mood/affect, oriented x 3 <Boaz Cleary - Last Filed: 06/26/17 14:50> Progress - PLAN OF CARE/RESULTS Progress/Plan/Lab Results: Vital Signs - 8 hr 06/03/17 20:15 06/03/17 21:01 06/03/17 23:47 Temperature 98.4 F Pulse Rate 106 H 102 H 77 Respiratory Rate 20 19 18 Blood Pressure 170/101 212/167 179/133 O2 Sat by Pulse Oximetry 99 98 99 Laboratory Results - last 24 hr 06/03/17 06/03/17 06/03/17 00:00 20:25 20:25 WBC 6.20 RBC 3.65 L Hgb 9.7 L Hct 29.2 L MCV 80.0 L MCH 26.6 L MCHC 33.2 RDW Std Deviation 16.1 H Plt Count 376 MPV 12.1 H Immature Gran % (Auto) 0.3 Neut % (Auto) 54.2 Lymph % (Auto) 36.9 Swisher % (Auto) 6.0 Eos % (Auto) 2.3 Baso % (Auto) 0.3 Immature Gran # (Auto) 0.02 Neut # (Auto) 3.36 Lymph # (Auto) 2.29 Swisher # (Auto) 0.37 Eos # (Auto) 0.14 Baso # (Auto) 0.02 Sodium 143 Potassium 3.2 L Chloride 106 Carbon Dioxide 25 Anion Gap 12 BUN 8 Creatinine 1.2 H Estimated GFR/1.73 m2 59 BUN/Creatinine Ratio 7 Glucose 167 H Calculated Osmolality 287 Calcium 8.7 L Total Bilirubin 0.25 AST 11 ALT 10 Alkaline Phosphatase 109 H Total Protein 7.2 Albumin 3.9 Globulin 3.3 Albumin/Globulin Ratio 1.2 Urine Source VOIDED Urine Color YELLOW Urine Turbidity HAZY Urine pH 6.5 Ur Specific [place] 1.013 Urine Protein 200 A Ur Glucose (Stick) >1000 A Ur Ketones (Stick) 20 A Urine Blood TRACE A Urine Nitrite NEGATIVE Urine Bilirubin NEGATIVE Urobilinogen Dipstick NORMAL Urine Leukocytes NEGATIVE Urine WBC (Auto) <10 Urine RBC (Auto) <10 U Epithel Cells (Auto) >10 A Urine Bacteria (Auto) 1+ Acetone Level 06/03/17 20:25 WBC RBC Hgb Hct MCV MCH MCHC RDW Std Deviation Plt Count MPV Immature Gran % (Auto) Neut % (Auto) Lymph % (Auto) Swisher % (Auto) Eos % (Auto) Baso % (Auto) Immature Gran # (Auto) Neut # (Auto) Lymph # (Auto) Swisher # (Auto) Eos # (Auto) Baso # (Auto) Sodium Potassium Chloride Carbon Dioxide Anion Gap BUN Creatinine Estimated GFR/1.73 m2 BUN/Creatinine Ratio Glucose Calculated Osmolality Calcium Total Bilirubin AST ALT Alkaline Phosphatase Total Protein Albumin Globulin Albumin/Globulin Ratio Urine Source Urine Color Urine Turbidity Urine pH Ur Specific [place] Urine Protein Ur Glucose (Stick) Ur Ketones (Stick) Urine Blood Urine Nitrite Urine Bilirubin Urobilinogen Dipstick Urine Leukocytes Urine WBC (Auto) Urine RBC (Auto) U Epithel Cells (Auto) Urine Bacteria (Auto) Acetone Level NEGATIVE Orders Category Date Time Status FSBS/Accucheck Result NOW Care 06/04/17 02:56 Active NPO Diet 06/03/17 21:[address] ABDOMEN/PELVIS W/O CONTRAST [CT] Stat Exams 06/03/17 21:47 Completed ACETONE SERUM [CHEM] Stat Lab 06/03/17 20:25 Completed CBC WITH DIFF [HEME] Stat Lab 06/03/17 20:25 Completed COMPREHENSIVE METABOLIC PANEL [CHEM] Stat Lab 06/03/17 20:25 Completed URINALYSIS [URINALYSIS] Stat Lab 06/03/17 00:00 Completed 0.9% Sodium Chloride Inj [Ns] 1,000 ml Med 06/03/17 21:51 Discontinued IV 999 mls/hr Morphine Med 06/04/17 02:44 Discontinued 4 mg IV NOW ONE Ondansetron [Zofran] Med 06/03/17 20:30 Discontinued 4 mg .ROUTE .STK-MED ONE Ondansetron [Zofran] Med 06/03/17 20:39 Discontinued 4 mg IV NOW ONE Promethazine [Phenergan] Med 06/04/17 00:05 Discontinued 25 mg IV NOW ONE Sodium Chloride 0.9% Med 06/04/17 00:05 Discontinued 10 ml INJ NOW ONE Result Diagrams: 06/03/17 20:25 06/03/17 20:25 - CONSULTS/PCP/HOSPITALIST Notification Time Discussed: 01:30 Consult Disposition: Will see in ED, Admit <Isaiah Barnard - Last Filed: 06/04/17 03:55> - PLAN OF CARE/RESULTS Progress/Plan/Lab Results: Vital Signs - 8 hr 06/04/17 04:40 06/04/17 05:57 06/04/17 07:08 Pulse Rate 90 105 H 92 H Respiratory Rate 20 16 17 Blood Pressure 168/123 213/136 175/106 O2 Sat by Pulse Oximetry 98 98 97 06/04/17 07:53 Pulse Rate 91 H Respiratory Rate 28 H Blood Pressure 150/104 O2 Sat by Pulse Oximetry 96 Laboratory Results - last 24 hr 06/03/17 06/03/17 06/03/17 00:00 20:25 20:25 WBC 6.20 RBC 3.65 L Hgb 9.7 L Hct 29.2 L MCV 80.0 L MCH 26.6 L MCHC 33.2 RDW Std Deviation 16.1 H Plt Count 376 MPV 12.1 H Immature Gran % (Auto) 0.3 Neut % (Auto) 54.2 Lymph % (Auto) 36.9 Swisher % (Auto) 6.0 Eos % (Auto) 2.3 Baso % (Auto) 0.3 Immature Gran # (Auto) 0.02 Neut # (Auto) 3.36 Lymph # (Auto) 2.29 Swisher # (Auto) 0.37 Eos # (Auto) 0.14 Baso # (Auto) 0.02 Sodium 143 Potassium 3.2 L Chloride 106 Carbon Dioxide 25 Anion Gap 12 BUN 8 Creatinine 1.2 H Estimated GFR/1.73 m2 59 BUN/Creatinine Ratio 7 Glucose 167 H POC Glucose Calculated Osmolality 287 Calcium 8.7 L Magnesium Total Bilirubin 0.25 AST 11 ALT 10 Alkaline Phosphatase 109 H Total Protein 7.2 Albumin 3.9 Globulin 3.3 Albumin/Globulin Ratio 1.2 Urine Source VOIDED Urine Color YELLOW Urine Turbidity HAZY Urine pH 6.5 Ur Specific [place] 1.013 Urine Protein 200 A Ur Glucose (Stick) >1000 A Ur Ketones (Stick) 20 A Urine Blood TRACE A Urine Nitrite NEGATIVE Urine Bilirubin NEGATIVE Urobilinogen Dipstick NORMAL Urine Leukocytes NEGATIVE Urine WBC (Auto) <10 Urine RBC (Auto) <10 U Epithel Cells (Auto) >10 A Urine Bacteria (Auto) 1+ Acetone Level 06/03/17 06/04/17 06/04/17 20:25 05:47 07:21 WBC RBC Hgb Hct MCV MCH MCHC RDW Std Deviation Plt Count MPV Immature Gran % (Auto) Neut % (Auto) Lymph % (Auto) Sw[place] % (Auto) Eos % (Auto) Baso % (Auto) Immature Gran # (Auto) Neut # (Auto) Lymph # (Auto) Swisher # (Auto) Eos # (Auto) Baso # (Auto) Sodium 144 Potassium 3.6 Chloride 104 Carbon Dioxide 18 L Anion Gap 22 BUN 11 Creatinine 1.2 H Estimated GFR/1.73 m2 59 BUN/Creatinine Ratio 9 Glucose 299 H D POC Glucose 297 H Calculated Osmolality 297 Calcium 8.2 L Magnesium 1.8 Total Bilirubin AST ALT Alkaline Phosphatase Total Protein Albumin Globulin Albumin/Globulin Ratio Urine Source Urine Color Urine Turbidity Urine pH Ur Specific [place] Urine Protein Ur Glucose (Stick) Ur Ketones (Stick) Urine Blood Urine Nitrite Urine Bilirubin Urobilinogen Dipstick Urine Leukocytes Urine WBC (Auto) Urine RBC (Auto) U Epithel Cells (Auto) Urine Bacteria (Auto) Acetone Level NEGATIVE 06/04/17 07:21 WBC 6.98 RBC 3.39 L Hgb 9.2 L Hct 28.3 L MCV 83.5 MCH 27.1 MCHC 32.5 L RDW Std Deviation 16.2 H Plt Count 324 MPV 11.6 H Immature Gran % (Auto) Neut % (Auto) Lymph % (Auto) Swisher % (Auto) Eos % (Auto) Baso % (Auto) Immature Gran # (Auto) Neut # (Auto) Lymph # (Auto) Swisher # (Auto) Eos # (Auto) Baso # (Auto) Sodium Potassium Chloride Carbon Dioxide Anion Gap BUN Creatinine Estimated GFR/1.73 m2 BUN/Creatinine Ratio Glucose POC Glucose Calculated Osmolality Calcium Magnesium Total Bilirubin AST ALT Alkaline Phosphatase Total Protein Albumin Globulin Albumin/Globulin Ratio Urine Source Urine Color Urine Turbidity Urine pH Ur Specific [place] Urine Protein Ur Glucose (Stick) Ur Ketones (Stick) Urine Blood Urine Nitrite Urine Bilirubin Urobilinogen Dipstick Urine Leukocytes Urine WBC (Auto) Urine RBC (Auto) U Epithel Cells (Auto) Urine Bacteria (Auto) Acetone Level Orders Category Date Time Status Admit - [facility] Routine AdmDCTranf 06/04/17 07:53 Ordered FSBS/Accucheck Result AC + HS Care 06/04/17 07:48 Active FSBS/Accucheck Result AC + HS Care 06/04/17 07:53 Active FSBS/Accucheck Result NOW Care 06/04/17 02:56 Active Nursing- MD Consult Request ROUTINE Care 06/04/17 07:53 Active Vital Signs Order Q6-HR ASSESS Care 06/04/17 07:53 Active Z-Document. for Tele Applied ORDERED Care 06/04/17 07:53 Active MD [Physician/Provider Consults] Routine Cons 06/04/17 07:53 Ordered NPO Diet 06/03/17 21:[address] ABDOMEN/PELVIS W/O CONTRAST [CT] Stat Exams 06/03/17 21:47 Completed ACETONE SERUM [CHEM] Stat Lab 06/03/17 20:25 Completed BASIC METABOLIC PANEL [CHEM] Stat Lab 06/04/17 07:21 Completed CBC WITH DIFF [HEME] Stat Lab 06/03/17 20:25 Completed CBC WITH NO DIFF [HEME] Stat Lab 06/04/17 07:21 Completed COMPREHENSIVE METABOLIC PANEL [CHEM] Stat Lab 06/03/17 20:25 Completed MAGNESIUM [CHEM] Stat Lab 06/04/17 07:21 Completed RENAL PROFILE [CHEM] Routine Lab 06/05/17 06:00 Uncollected URINALYSIS [URINALYSIS] Stat Lab 06/03/17 00:00 Completed 0.9% Sodium Chloride Inj [Ns] 1,000 ml Med 06/04/17 05:37 Active IV 100 mls/hr 0.9% Sodium Chloride Inj [Ns] 1,000 ml Med 06/03/17 21:51 Discontinued IV 999 mls/hr Insulin Lispro [Humalog] Med 06/04/17 11:00 Active See Protocol SUBQ 0700,1100,1600,2100 LISINOpril [Prinivil] Med 06/04/17 09:00 Discontinued 10 mg PO DAILY Labetalol Med 06/04/17 06:33 Discontinued 10 mg IV NOW ONE Labetalol Med 06/04/17 06:05 Active 10 mg IV Q4H PRN PRN Labetalol Med 06/04/17 06:10 Discontinued 20 mg .ROUTE .STK-MED ONE Metoclopramide [Reglan] Med 06/04/17 08:00 Active 10 mg IV Q8H Morphine Med 06/04/17 02:44 Discontinued 4 mg IV NOW ONE Ondansetron [Zofran] Med 06/03/17 20:30 Discontinued 4 mg .ROUTE .STK-MED ONE Ondansetron [Zofran] Med 06/03/17 20:39 Discontinued 4 mg IV NOW ONE Ondansetron [Zofran] Med 06/04/17 07:53 Active 4 mg IV Q4H PRN PRN Pantoprazole [Protonix] Med 06/04/17 08:00 Active 40 mg IV Q12H Promethazine [Phenergan] Med 06/04/17 00:05 Discontinued 25 mg IV NOW ONE Promethazine [Phenergan] Med 06/04/17 05:37 Active 25 mg IV Q6H PRN PRN Sodium Chloride 0.9% Med 06/04/17 08:00 Active 10 ml INJ DIRECTED Sodium Chloride 0.9% Med 06/04/17 00:05 Discontinued 10 ml INJ NOW ONE Sodium Chloride 0.9% Med 06/04/17 05:37 Active 10 ml INJ PRN PRN Sucralfate [Carafate] Med 06/04/17 09:00 Discontinued 1 gm PO 4XDAY Telemetry [OM.EQ] Routine Oth 06/04/17 07:53 Active Transfer/Admit Order [TRANSFER] Routine Transfer 06/04/17 05:33 Ordered Result Diagrams: 06/04/17 07:21 06/04/17 07:21 - REASSESSMENT Reassessment #1 Time Reassessed: 08:22 Status: other (Discussed with Dr. Rutherford at [facility], accepted pt for transfer. Gastric pacemaker needs to be managed by the [place] GI specialist per Dr. Lewis.) <Claire Conde X - Last Filed: 06/04/17 08:22> - PLAN OF CARE/RESULTS Progress/Plan/Lab Results: Vital Signs - 8 hr 06/03/17 20:15 06/03/17 21:01 Temperature 98.4 F Pulse Rate 106 H 102 H Respiratory Rate 20 19 Blood Pressure 170/101 212/167 O2 Sat by Pulse Oximetry 99 98 Orders Category Date Time Status NPO Diet 06/03/17 21:[address] ABDOMEN/PELVIS W/O CONTRAST [CT] Stat Exams 06/03/17 21:47 Ordered CBC WITH DIFF [HEME] Stat Lab 06/03/17 21:55 Ordered COMPREHENSIVE METABOLIC PANEL [CHEM] Stat Lab 06/03/17 21:55 Ordered URINALYSIS [URINALYSIS] Stat Lab 06/03/17 21:48 Ordered 0.9% Sodium Chloride Inj [Ns] 1,000 ml Med 06/03/17 21:51 Active IV 999 mls/hr Ondansetron [Zofran] Med 06/03/17 20:30 Discontinued 4 mg .ROUTE .STK-MED ONE Ondansetron [Zofran] Med 06/03/17 20:39 Discontinued 4 mg IV NOW ONE Result Diagrams: 06/04/17 07:21 06/04/17 07:21 - CT/MRI 1 CT Study: Abdomen, Pelvis Impression: Normal (1. no air within the urinary bladder on the current exam. no evidence of cystitis. 2. cholecystectomy. 3. distal esophagus distended with fluid. 4. no bowel obstruction.) - CHANGE OF SHIFT REPORT (ED Provider) Report Given and Care Transferred to:: Time of Transfer: 01:15 Items Pending: Other (DISPOSITION DECISION) <Boaz Cleary - Last Filed: 06/26/17 14:50> Departure - Departure Date of Disposition Decision: 06/04/17 Time of Disposition Decision: 01:30 Certified Medical Emergency: Emergent - Critical Care Note This patient required my direct & personal management of CC.: No <Isaiah Barnard - Last Filed: 06/04/17 03:55> <Claire Conde - Last Filed: 06/04/17 08:22> - Departure Date of Disposition Decision: 06/04/17 Time of Disposition Decision: 13:45 Certified Medical Emergency: Emergent - Critical Care Note This patient required my direct & personal management of CC.: No <Boaz Cleary - Last Filed: 06/26/17 14:50> - Departure DIAGNOSIS: Gastroparesis Disposition: [facility] 02 Condition: Stable Attestation - Physician/ GAUDENCIO Attestation Patient care was provided by Advanced Practice Provider:: No <Isaiah Barnard - Last Filed: 06/04/17 03:55> - Physician/ GAUDENCIO Attestation Patient care was provided by Advanced Practice Provider:: No The physician spent face to face time with patient:: Yes Advanced Practice Provider documentation review:: Supervising physician onsite and consulted in the evaluation and care of this patient. The physician did have a face to face encounter with the patient. <Boaz Cleary - Last Filed: 06/26/17 14:50> This chart was documented by the indicated scribe, (Vanita Morgan Scribe) and accurately reflects the services I performed and decisions made by me, Boaz Cleary, , as attested by the provider's signature.
== END 2017-06-04 13:45 | disposition short-term general hospital (02) ==
LOC: ED 20:12 → 3N 20:12 → SUATTDRO 06-04 08:17 → 3N 06-04 13:45
PROVIDERS: ATTEND Emergency Medicine

== ENCOUNTER 2018-09-19 12:35 | Inpatient (IN) ==
[2018-09-19] MEDS ORDERED: ZOFRAN IV ONE (13:21)
[2018-09-19] MEDS ORDERED: NS 1,000 ML IV ONE (13:22)
[2018-09-19] MEDS ORDERED: MORPHINE IV ONE (14:23)
[2018-09-19 14:28] LABS: BASO# 0.02 X1000 (0.0-0.2); BASO% 0.3 % (0.0-0.8); EOS# 0.09 X1000 (0.0-0.7); EOS% 1.3 % (0.0-10.0); HEMATOCRIT 37.2 % (37.0-47.0); HEMOGLOBIN 12.3 g/dL (12.0-16.0); IMM GRAN# 0.02 X1000 (0.0-0.04); IMM GRAN% 0.3 % (0.0-0.5); LYMPH# 1.52 X1000 (1.2-3.4); MCH 26.7 PG (27-31); MCHC 33.1 g/dL (33-37); MCV 80.7 FL (81-99); MONO# 0.23 X1000 (0.11-0.59); MONO% 3.3 % (1.7-9.3); MPV 11.2 FL (7.4-10.4); NEUT# 5.04 X1000 (1.4-6.5); NEUT% 72.8 % (42.2-75.2); PLT 446 X1000 (130-400); RBC 4.61 XMIL (4.2-5.4); WBC 6.92 X1000 (4.8-10.8)
[2018-09-19 15:14] LABS: ALBUMIN 3.6 g/dL (3.5-5.0); POTASSIUM 4.2 mmol/L (3.5-5.1); TOTAL BILIRUBIN 0.2 mg/dL (0.20-1.00); TOTAL PROTEIN 7.5 g/dL (6.3-8.3)
[2018-09-19] MEDS ORDERED: SODIUM CHLORIDE 0.9% INJ ONE (15:21)
[2018-09-19] MEDS ORDERED: PHENERGAN IV ONE (15:21)
[2018-09-19] MEDS ORDERED: VASOTEC IV ONE (15:58)
--- NOTE | 2018-09-19 19:57 | HISTORY AND PHYSICAL ---
ADDENDUM - HISTORY AND PHYSICAL: Patient seen and examined by myself. Full note dictated and discussed with nurse practitioner. Patient presented to the hospital with nausea, vomiting and epigastric and abdominal pain. States it appears somewhat of her usual symptoms. She is having diaphoretic episodes. Denies any hematemesis, hematochezia or melena. Blood pressure is noted to be elevated at 177/125. This will be treated. She was placed on IV Reglan, IV fluids, IV Phenergan, and will follow. cc: Jaime Vang MD
[2018-09-19] MEDS ORDERED: ZOFRAN IV PRN (20:26)
[2018-09-19] MEDS ORDERED: APRESOLINE IV PRN (20:28)
[2018-09-19] MEDS: MORPHINE IV PRN (21:30)
[2018-09-19] MEDS: REGLAN IV SCH (21:30)
[2018-09-19] MEDS: NS 1,000 ML IV SCH (22:05)
[2018-09-19] MEDS: HUMALOG (PARKWAY) SUBQ SCH (22:05)
--- NOTE | 2018-09-19 23:29 | HISTORY AND PHYSICAL ---
CHIEF COMPLAINT: Nausea, vomiting. HISTORY OF PRESENT ILLNESS: This is a 43-year-old female who is very well known to our service for multiple admissions for the same. She has a history of gastroparesis with a gastric pacemaker in place, hypertension, poorly controlled diabetes mellitus type 2 with medical noncompliance. She presents to the emergency room complaining of a sudden onset of nausea, vomiting that started this morning. She denies any black or bloody vomitus, any fevers or chills. PAST MEDICAL HISTORY: 1. Gastroparesis, status post a gastric pacemaker. 2. Hypertension. 3. Diabetes type 2, poorly controlled with hyperglycemia. 4. Diabetic neuropathy. 5. Chronic medical noncompliance. 6. Esophageal stricture with a history of gastritis and esophagitis and history of marijuana abuse. PAST SURGICAL HISTORY: Cholecystectomy, feeding tube placement and removal, gastric pacemaker and Port-A-Cath placement. SOCIAL HISTORY: She is a former smoker, but she did quit. She denies any alcohol use and she denies any marijuana use in the last 4 to 5 months. ALLERGIES: No known drug allergies. HOME MEDICATIONS: A list will be obtained by the nursing staff and once verified will be evaluated and started as is appropriate. REVIEW OF SYSTEMS: Discussed with patient with pertinent positives stated in HPI. She denied any syncope, dizziness, chest pain, palpitations, any shortness of breath, cough, fever, chills, any night sweats, recent weight loss or weight gain, any black or bloody vomitus or stools, hematuria, dysuria, frequency, urgency. PHYSICAL EXAMINATION: GENERAL: This is a 43-year-old female who is sitting up in the bed in ICU in mild distress. VITAL SIGNS: Blood pressure is 151/98 with heart rate 102, respirations are 18 , temperature is 97.6 degrees oral with room air saturations 100%. EYES: Pupils are equal, round, react to light. EOMs are intact. Sclerae are anicteric. HENT: Head is normocephalic, atraumatic. Mucous membranes are dry. NECK: Supple with trachea midline. CARDIOVASCULAR: Regular rate and rhythm. S1 and S2 appreciated. Chest rises and falls symmetrically with respiration. Chest wall is nontender to palpation. GASTROINTESTINAL: Abdomen is soft. She is tender in the epigastric area to palpation with bowel sounds in all 4 quadrants. MUSCULOSKELETAL: Good range of motion of joints. GENITOURINARY: She has no CVA nor suprapubic tenderness. NEUROLOGIC: She is alert and oriented x3. SKIN: Moist and warm. LABS: WBC is 6.9 with hemoglobin 12.3, hematocrit 37.2, platelets of 446,000. Sodium 141, potassium 4.2, BUN 12, creatinine 2 with a glucose of 282. ASSESSMENT AND PLAN: 1. Intractable nausea and vomiting. We will keep her NPO at present. Continue with IV hydration, giving IV antiemetics. We will start clear liquids once vomiting subsides and advance as tolerated. 2. Diabetic gastroparesis with a gastric pacemaker. The patient once again states she did not fill her Reglan on discharge from the hospital.. IV Reglan every 6 hours and then trend to oral and once again reinforce the need for her having compliance with the regimen. 3. Hypertension. Once again, the patient did not fill her home medications. We will restart Norvasc and monitor her vital signs. 4. History of erosive gastritis and esophagitis. We will start Carafate and Protonix. 5. Poorly controlled insulin-dependent diabetes mellitus. We will place her on pattern blood glucose with sliding scale insulin. 6. Medical noncompliance. I did voice once again the importance of her taking her medications as prescribed and having follow up with her physicians and once again she did voice understanding. 7. For deep venous thrombosis prophylaxis, we will use sequential compression devices. 8. Gastrointestinal prophylaxis. We will use Protonix. The patient does have a history of constipation as well as rectal impactions. We will obtain an abdominal x-ray. We will also obtain a chest x-ray. Further treatments pending hospital course. Dictated by NELL Rubi for Jaime Vang MD This chart was documented by, NELL Rubi and accurately reflects the services performed, treatment plan and medical decisions as attested by the providers signature Jaime Vang MD. cc: NELL Rubi MD [facility]
[2018-09-20] MEDS: REGLAN IV SCH ×4 (02:14→22:16)
[2018-09-20] MEDS: MORPHINE IV PRN ×5 (02:14→22:20)
[2018-09-20] MEDS: HUMALOG (PARKWAY) SUBQ SCH ×2 (06:20→11:30)
[2018-09-20] MEDS: NS 1,000 ML IV SCH ×3 (06:52→18:25)
[2018-09-20 07:06] LABS: HEMATOCRIT 34.2 % (37.0-47.0); HEMOGLOBIN 11.1 g/dL (12.0-16.0); MCH 26.2 PG (27-31); MCHC 32.5 g/dL (33-37); MCV 80.7 FL (81-99); MPV 10.6 FL (7.4-10.4); RBC 4.24 XMIL (4.2-5.4); RDW 14.1 % (11.5-14.5); WBC 16.92 X1000 (4.8-10.8)
[2018-09-20 07:21] LABS: HEMOGLOBIN A1C 7.6 % (4.8-6.0)
[2018-09-20 07:23] LABS: AGAP 13; ALKALINE PHOSPHATASE 159 U/L (32-104); BUN 19 mg/dL (8-22); CALCIUM 8.1 mg/dL (8.8-10.2); CHLORIDE 101 mmol/L (98-107); COSMO 280; CREATININE 1.9 mg/dL (0.5-0.9); ESTIMATED GFR 29; GLUCOSE 239 mg/dL (70-104); GOT 11 U/L (10-30); GPT 5 U/L (10-36); MAGNESIUM 2.8 mg/dL (1.5-2.7); POTASSIUM 3.8 mmol/L (3.5-5.1); SODIUM 135 mmol/L (136-145); TCO2 21 mmol/L (25-35); TOTAL BILIRUBIN < 0.15 mg/dL (0.20-1.00); TOTAL PROTEIN 6.4 g/dL (6.3-8.3)
[2018-09-20] MEDS: HUMALOG DOSE (PARKWAY) SUBQ SCH ×2 (16:20→22:14)
[2018-09-20] MEDS ORDERED: PHENERGAN PO PRN (18:20)
[2018-09-21] MEDS: NS 1,000 ML IV SCH (03:21)
[2018-09-21] MEDS: REGLAN IV SCH ×2 (03:42→08:25)
[2018-09-21] MEDS: MORPHINE IV PRN ×2 (03:50→08:59)
--- NOTE | 2018-09-21 03:50 | PROGRESS NOTE ---
DATE: 09/20/2018 SUBJECTIVE: Patient currently has no new complaints. States she is still nauseated, but notes that she is improving slightly. Is asking for Phenergan. PHYSICAL EXAMINATION: Vital Signs: Temperature 97.9 degrees, pulse 97, respiratory 20, BP 131/80. General: Patient is awake, alert, very pleasant to talk with. She is in no current respiratory distress. HEENT: Normocephalic. Neck: Supple. CARDIOVASCULAR: Regular rate. Chest: Clear. Abdomen: Soft. Extremities: Moves all extremities. ASSESSMENT: 1. Intractable nausea and vomiting. 2. Diabetic gastroparesis with gastric pacemaker. 3. Hypertension. 4. History of erosive esophagitis and gastritis. 5. Poorly controlled insulin-dependent diabetes. PLAN: We will continue patient in the hospital. Continue to treat symptomatically. cc: Jaime Vang MD
[2018-09-21] MEDS: HUMALOG DOSE (PARKWAY) SUBQ SCH ×2 (06:40→12:15)
[2018-09-21 07:27] LABS: ALBUMIN 2.4 g/dL (3.5-5.0); CALCIUM 7.3 mg/dL (8.8-10.2); CREATININE 1.7 mg/dL (0.5-0.9); MAGNESIUM 2.2 mg/dL (1.5-2.7); PHOSPHORUS 2.1 mg/dL (2.7-4.5); TOTAL BILIRUBIN 0.2 mg/dL (0.20-1.00)
[2018-09-21 08:18] LABS: HEMATOCRIT 28.2 % (37.0-47.0); HEMOGLOBIN 9.1 g/dL (12.0-16.0); MCH 26.3 PG (27-31); MCHC 32.3 g/dL (33-37); MCV 81.5 FL (81-99); MPV 10.9 FL (7.4-10.4); RBC 3.46 XMIL (4.2-5.4); RDW 14.3 % (11.5-14.5); WBC 17.81 X1000 (4.8-10.8)
[2018-09-21 12:42] VITALS: BP 109/59
--- NOTE | 2018-09-22 01:23 | PROGRESS NOTE ---
DATE: 09/21/2018 SUBJECTIVE: Patient notes she is starting to feel better. She is eating a little bit better. Denies any chest pain or palpitations. Currently denies any fevers or chills. PHYSICAL EXAMINATION: Vital Signs: Temperature 97 degrees, pulse 109, respiratory 20, BP 133/79. General: Patient appears to be feeling much better. She denies any nausea currently. Denies any chest pain. Currently denies any fevers or chills. States that she wants to try to eat. HEENT: Normocephalic. Neck: Supple. CARDIOVASCULAR: Regular rate. Chest: Relatively clear, nonlabored. Abdomen: Soft, nondistended. Extremities: Moves all extremities. ASSESSMENT: 1. Intractable nausea and vomiting secondary to her diabetic gastroparesis. 2. Diabetic gastroparesis. 3. Hypertension. 4. Erosive gastritis by history. 5. Poorly controlled insulin-dependent diabetes. PLAN: We will continue patient in the hospital. We will attempt to advance her diet if she tolerates. Hopefully she can be discharged home later this afternoon or certainly by tomorrow. cc: Jaime Vang MD
--- NOTE | 2018-09-23 18:42 | DISCHARGE SUMMARY ---
ADMISSION DATE: 09/19/2018 DISCHARGE DATE: 09/21/2018 DIAGNOSES: 1. Intractable nausea vomiting secondary to gastroparesis resolved. 2. Diabetic gastroparesis. 3. Hypertension. 4. Erosive gastritis by history. 5. Poorly controlled diabetes mellitus. 6. History of a gastric pacemaker. HOSPITAL COURSE: Ms Bobby presented to the emergency room having nausea, vomiting that started earlier in the day. She was unable to take any p.o. intake. She was admitted, given IV hydration as well as IV Reglan. Within 24 hours she started feeling better. She was started eating. We were able to advance her diet and on discharge she had actually eaten a soft diet with no nausea, vomiting. She was hypertensive on admission stating once again that she did not fill her medications. We restarted her on the medications. We restarted Norvasc 5 mg daily and her blood pressures did decrease to the 1-teens to 130s over 50s to 70s. Once again I strongly encouraged her to fill this medication. She was adamant about going home today. Blood cultures came back with arm antecubital site with no growth but her port site with gram-positive cocci. She stated that she was having no fever. She did not feel bad as a matter of fact she felt better that she had in quite some time and she wanted to be discharged. After being evaluated by Dr. Vang we did discuss the fact that this blood culture could come back to be a bacteria that would need IV antibiotics and she stated that we would be able to get in touch with her and that she would come back to the hospital. I did speak with her yesterday on the . She had no fever. She was feeling fine. This morning for IV antibiotics. DISCHARGE PHYSICAL EXAMINATION: Cardiovascular: Regular rate and rhythm. S1, S2 appreciated. Pulmonary: Breath sounds are clear with no increased work of breathing noted. Gastrointestinal: Abdomen is soft, nontender, nondistended with bowel sounds in all 4 quadrants. Skin is warm and dry. DISCHARGE MEDICATIONS: Norvasc 5 p.o. daily, Compazine 5 mg p.o. daily, Ambien 10 mg at bedtime, and Lantus 12 units at bedtime. She is being discharged home in stable condition. FOLLOWUP: She has been instructed to call her network professional in [place] to schedule followup appointment. Dictated by NELL Rubi for Jaime Vang MD This chart was documented by, NELL Rubi and accurately reflects the services performed, treatment plan and medical decisions as attested by the providers signature Jaime Vang MD. cc: NELL Rubi MD
--- NOTE | 2018-09-24 03:55 | DISCHARGE SUMMARY ---
ADMISSION DATE: 09/19/2018 DISCHARGE DATE: 09/21/2018 ADDENDUM: Patient seen and examined by myself. Full note dictated and discussed with nurse practitioner. On discharge, the patient is awake, alert. She is feeling much better. She tolerated her regular diet. Her nausea, vomiting have dramatically improved. Overall, she is back to her stable chronic home condition. We will discharge her home and she will follow up with outpatient provider of her choice. cc: Jaime Vnag MD
--- NOTE | 2018-09-24 04:05 | DISCHARGE SUMMARY ---
ADMISSION DATE: 09/19/2018 DISCHARGE DATE: 09/21/2018 ADDENDUM: Ms Bobby was discharged on the . At that time, she did have a pending blood cultures with 1 being no growth and 1 being gram-positive cocci. She had insisted on being discharged as she had no fever and felt better than she had in quite some time. She would not stay in the hospital. We did discuss the fact that if she had a fever, if she started feeling bad, if these cultures came back with a bacteria, she would have to come back and have IV antibiotics to which she agreed. I did speak with her on the and she was feeling fine. She was afebrile. She was having no difficulties. She had no recurrence of nausea, vomiting. Today, on the her blood culture revealed Staphylococcus hominis. I did discuss this with Dr. Emilio Wilkinson, who is our Infectious Disease physician, and as this is a contaminant, it is only 1/2 cultures, he is not see the need for antibiotics. I did explain this to Ms. Bobby. I instructed her that if she had a fever, any chills, any body aches or felt ill she needed to see her primary care physician or return to the ER, which she did voice understanding. Dictated by NELL Rubi for Jaime Vang MD This chart was documented by, NELL Rubi and accurately reflects the services performed, treatment plan and medical decisions as attested by the providers signature Jaime Vang MD. cc: NELL Rubi MD
== END 2018-09-21 13:36 | disposition home or self-care (01) | DRG 74 ==
LOC: P.ED 12:35 → P.MEDSURG 17:14 → SUATTDRO 17:14
PROVIDERS: ADMIT Family Medicine; ATTEND Family Medicine
CPT/HCPCS: 80053; 82948; 83036; 83735; 84100; 85025; 85027; 87040; 87077; 87088; 87186; 94761; 96361; 96374; 96375; 99285; A9270; J0360; J1815; J2270; J2405; J2550; J2765; J7030; XXXXX

== ENCOUNTER 2018-10-14 21:14 | Inpatient (IN) ==
[2018-10-14] MEDS ORDERED: NS 1,000 ML IV ONE (21:58)
[2018-10-14] MEDS ORDERED: DEMEROL IV ONE (21:58)
[2018-10-14] MEDS ORDERED: ATIVAN IV ONE (21:58)
[2018-10-14] MEDS ORDERED: GLUCAGON IV ONE (21:58)
[2018-10-14] MEDS ORDERED: PHENERGAN IV ONE (22:03)
[2018-10-14] MEDS ORDERED: SODIUM CHLORIDE 0.9% INJ ONE (22:03)
[2018-10-14 22:23] LABS: INFLUENZA A NEGATIVE (NEGATIVE); INFLUENZA B NEGATIVE (NEGATIVE)
[2018-10-14 22:37] LABS: BASO# 0.04 X1000 (0.0-0.2); BASO% 0.5 % (0.0-0.8); EOS# 0.06 X1000 (0.0-0.7); EOS% 0.8 % (0.0-10.0); HEMATOCRIT 37.4 % (37.0-47.0); HEMOGLOBIN 12.4 g/dL (12.0-16.0); IMM GRAN# 0.01 X1000 (0.0-0.04); IMM GRAN% 0.1 % (0.0-0.5); LYMPH# 1.43 X1000 (1.2-3.4); LYMPH% 18.1 % (20.5-51.1); MCH 25.8 PG (27-31); MCHC 33.2 g/dL (33-37); MCV 77.8 FL (81-99); MONO# 0.31 X1000 (0.11-0.59); MONO% 3.9 % (1.7-9.3); MPV 10.7 FL (7.4-10.4); NEUT# 6.07 X1000 (1.4-6.5); NEUT% 76.6 % (42.2-75.2); PLT 441 X1000 (130-400); RBC 4.81 XMIL (4.2-5.4); RDW 15.1 % (11.5-14.5); WBC 7.92 X1000 (4.8-10.8)
[2018-10-14 23:10] LABS: AGAP 18; ALBUMIN 3.7 g/dL (3.5-5.0); ALKALINE PHOSPHATASE 202 U/L (32-104); BUN 15 mg/dL (8-22); CALCIUM 9.2 mg/dL (8.8-10.2); CHLORIDE 111 mmol/L (98-107); COSMO 291; CREATININE 2.4 mg/dL (0.5-0.9); GLUCOSE 228 mg/dL (70-104); GOT 13 U/L (10-30); GPT 6 U/L (10-36); LIPASE 30 U/L (13-60); MAGNESIUM 2.3 mg/dL (1.5-2.7); POTASSIUM 3.3 mmol/L (3.5-5.1); SODIUM 142 mmol/L (136-145); TCO2 13 mmol/L (25-35); TOTAL PROTEIN 7.8 g/dL (6.3-8.3)
[2018-10-14 23:14] LABS: AMYLASE 295 U/L (20-200)
[2018-10-15] MEDS ORDERED: HUMULIN R IV ONE (00:18)
[2018-10-15] MEDS: POTASSIUM CHLORIDE 20 MEQ/SWI 20 MEQ/100 ML IVPB IV SCH ×2 (05:09→08:42)
[2018-10-15] MEDS: HEPARIN SUBQ SCH ×2 (05:09→17:52)
[2018-10-15] MEDS: HUMALOG SUBQ SCH ×5 (05:09→23:47)
[2018-10-15] MEDS: PHENERGAN IV PRN ×3 (05:10→17:53)
[2018-10-15] MEDS: NS 1,000 ML IV SCH ×2 (05:16→17:51)
[2018-10-15] MEDS: DILAUDID IV PRN ×5 (05:35→21:57)
--- NOTE | 2018-10-15 06:50 | HISTORY AND PHYSICAL ---
CHIEF COMPLAINT: Choked on chicken, nausea, vomiting. HISTORY OF PRESENT ILLNESS: Ms. Bobby is a 43-year-old female , very well known to our service. She has a past medical history of severe gastroparesis status post a gastric pacemaker, hypertension poorly controlled, diabetes mellitus type 2, diabetic neuropathy, history of chronic medical noncompliance and esophageal stricture with a history of gastritis and esophagitis. She also has a history of marijuana use and abuse. She has been made aware that that can cause hyperemesis but over the years has declined wanting to quit. At any rate, she was eating some chicken and spaghetti, choked, felt as if she could not swallow and came into the emergency room. Since that time, she has had intractable nausea and vomiting. Dr. Whiting was spoken with and she will be admitted to [facility]. PAST MEDICAL HISTORY: See HPI. PAST SURGICAL HISTORY: 1. Cholecystectomy. 2. Feeding tube placement and removal. 3. Gastric pacemaker placement. 4. Port-A-Cath placement. SOCIAL HISTORY: Former smoker. She quit. Denies alcohol. Occasionally uses marijuana, states it has been months. ALLERGIES: No known drug allergies. FAMILY HISTORY: Positive for diabetes mellitus. HOME MEDICATIONS: A list of home medications has not been reconciled. I believe she does take Lantus, Norvasc, and Compazine, however, I do not know the dosage. Order was placed for nursing to reconcile home medications in the computer. REVIEW OF SYSTEMS: A 14-point review of systems conducted with the patient. Pertinent positives as listed above in the HPI. All other systems reviewed and found to be negative. PHYSICAL EXAMINATION: VITAL SIGNS: Temperature 97.5, pulse 110, respirations 20, blood pressure 132/ 93, oxygen saturation 100% on room air. GENERAL: Pleasant, 43-year-old female lying on the medical floor bed. Answers all questions appropriately. She is alert and oriented x3. HEENT: Head is atraumatic, normocephalic. Pupils are equal, round and reactive to light. Extraocular eye movements intact. Sclerae anicteric. Conjunctivae is pink. Oral mucosa is dry. NECK: Supple. No JVD. No thyromegaly. Trachea is midline. No cervical lymphadenopathy. CARDIAC: S1 and S2 appreciated. No murmurs, gallops, rubs. CHEST: Port-A-Cath noted, clean, dry and intact. No obvious signs of infection. LUNGS: Clear to auscultation bilaterally. No rhonchi, wheezes, rales. Symmetrical rise and fall of respirations. ABDOMEN: Soft, nondistended, diffusely tender to palpation. Bowel sounds present in all four quadrants. Normoactive. No pulsatile mass. No organomegaly. EXTREMITIES: No clubbing, cyanosis, or edema. 2+ pedal pulses. NEUROLOGIC: Alert and oriented x3. Cranial nerves II-XII grossly intact. LABORATORY DATA: CBC within normal limits. Sodium 142, potassium 3.3, chloride 111, carbon dioxide 13, BUN 15, creatinine 2.4, glucose 219. ASSESSMENT AND PLAN: 1. Questionable food impaction. The patient is known to have esophageal stricture. She choked on chicken tonight. Will consult Dr. Whiting to see in the a.m. N.p.o. after midnight. She was given Glucagon, I believe, and Demerol and Ativan in the ER. She states that she is feeling somewhat better now. 2. Severe gastroparesis. Will continue home medications once they are reconciled. Will give Phenergan as needed p.r.n. for nausea. Normal saline at 75 mL an hour. Will give Dilaudid p.r.n. as needed for pain. 3. Diabetes mellitus with hyperglycemia. Continue home insulin when reconciled. Sliding scale insulin with fingerstick blood sugars. 4. Hypertension. Continue Norvasc. I believe she takes 5 mg daily. 5. Acute on chronic kidney disease. Will continue fluid resuscitation and recheck laboratory data. Dictated by NELL Lundy for Grey Amin MD I have performed a face to face diagnostic evaluation. Labs/Xrays- reviewed.Chest, clear, Abd- soft A/P Esophageal food impaction, gastroparesis- Admit, NPO, GI consult. Dr. Amin cc: NELL Lundy MD [facility]
--- NOTE | 2018-10-15 07:30 | Diag Imaging Result Doc PS360 ---
EXAM: CHEST-PORTABLE HISTORY: N/V; CONCERN FOR ESOPHAGEAL FOOD IMPACTDION TECHNIQUE: Chest single view COMPARISON: 09/10/2018 FINDINGS: The lungs are well expanded. The heart is not enlarged. No change in the right-sided portacatheter. The vessels are not distended. There are no infiltrates. No effusion identified. There appears to be a nodule in the lower right lung on the current exam. IMPRESSION: Possible new nodule in the lower right lung on the current study. Electronically signed by Hebert Soto 10/15/2018 7:28 AM
--- NOTE | 2018-10-15 07:57 | Diag Imaging Result Doc PS360 ---
EXAM: KUB ABDOMEN INDICATION: HX OF GASTROPARESIS NOW W/ N/V PO INTOLERANCE TECHNIQUE: 2 views COMPARISON: 09/10/2018 FINDINGS: There are unremarkable bowel gas and stool patterns. There is no obstructive bowel pattern. There is no evidence of large volume free abdominal gas. There is no evidence of organomegaly. An IUD is in stable position. An implanted neural stimulator is in stable position. IMPRESSION: No evidence of acute pathology by plain radiograph. Electronically signed by Vijay Zapata 10/15/2018 7:54 AM
[2018-10-15] MEDS: NORVASC PO SCH (08:43)
[2018-10-15] MEDS: COMPAZINE PO SCH (08:43)
[2018-10-15] MEDS: SODIUM CHLORIDE 0.9% INJ SCH ×2 (08:43→21:57)
[2018-10-15] MEDS: PROTONIX IV SCH ×2 (08:43→21:57)
--- NOTE | 2018-10-15 11:24 | GASTROENTEROLOGY CONSULTATION ---
DATE: 10/15/2018 ATTENDING PHYSICIAN: Jermain Gregory MD. PRIMARY CARE DOCTOR: KYARA. REASON FOR CONSULTATION: Nausea, and vomiting, and dysphagia. HISTORY OF PRESENT ILLNESS: Ms. Bobby is a 43-year-old female, who was admitted on 10/15/2018 for symptoms of nausea and vomiting and intermittent dysphagia to foods like chicken and spaghetti. She came to the ER for further evaluation. She has a history of severe gastroparesis status post gastric pacemaker placement, type 2 diabetes complicated with gastroparesis/neuropathy, and previous history of esophageal stricture. Her last EGD was done on 11/22/2017, which showed evidence of severe ulcerative esophagitis in the distal esophagus, causing stricture. At that time, we had suggested the patient to follow up as an outpatient for dilation. But it is unclear if the patient had any esophageal dilation done. We will try to obtain records from our office in that regard. Since being in the hospital, patient has been on IV fluids and IV PPIs. She denies any vomiting blood or passing blood in the stools. PAST MEDICAL HISTORY: Diabetes mellitus, gastroparesis, status post gastric pacemaker, hypertension, noncompliance, diabetic neuropathy, esophageal stricture, esophagitis, gastritis, and reflux disease. PAST SURGICAL HISTORY: Cholecystectomy, feeding tube placement removal, gastric pacemaker placement, Port-A-Cath placement, and EGD on 11/22/2017. SOCIAL HISTORY: She is a former smoker. She quit. She denies any history of alcohol, though, occasionally uses marijuana. She has been using for months. She has a very supportive mother at bedside. ALLERGIES: No known drug allergies. MEDICATIONS IN THE HOSPITAL: Insulin glargine, zolpidem, Dilaudid, Norvasc, heparin, Humalog, lispro, normal saline 75 mL per hour, Protonix, Compazine, Phenergan. She is on IV fluids at 75 per hour. She is currently NPO. We will start her on clear liquid diet. REVIEW OF SYSTEMS: Denies any current fevers, rigors, or chills, chest pain, shortness of breath, dyspnea. Denies any vomiting blood or passing blood in the stools. She has abdominal discomfort in the epigastric region. She does have a history of intermittent constipation. She denies any melena. She denies any neurological complaints other than neuropathy from diabetes. She denies any new genitourinary complaints. PHYSICAL EXAMINATION: Vital Signs: Temperature 98.4 degrees, pulse rate of 117, respiratory rate of 16, blood pressure 120/94, saturating 100% on room air. Body weight of 145 pounds. BMI of 27.4 kg/m sq. General Appearance: Moderately built, moderately nourished, lying in bed, in no acute distress. No pallor. No icterus. Pupils: Equal, reactive to light. Neck: Supple. Abdomen: Discomfort in the epigastrium. No rebound. No guarding. Extremities: No cyanosis, clubbing, or edema. Neurologic: Alert, awake, and oriented to time, place, and person. LABS: 1. Hemoglobin and hematocrit is 12.4 and 37.4, white count of 7.92, platelet count 441. Sodium of 142, potassium 3.3, chloride 111, bicarb 30, anion gap of 18, BUN of 15, creatinine of 2.4, glucose of 219, calcium 9.2, magnesium 2.3. Total bilirubin is 0.2. HBA1c 7. AST 13, ALT 6, alkaline phosphatase is 202, total protein 7.8, albumin of 3.7, amylase of 295. Lipase of 331. Influenza A and B negative. 2. Chest x-ray: Possible new nodule in the lower right lung on the current study. 3. An abdominal x-ray showed IUD in stable position, no obstructive bowel pattern, implanted neurostimulator in stable position. No organomegaly. Unremarkable bowel gas and stool pattern. IMPRESSION AND PLAN: 1. Dysphagia. 2. Intermittent nausea and vomiting. 3. History of severe reflux disease and esophageal stricture, gastritis, esophagitis, the last esophagogastroduodenoscopy done in November 2017. 4. Gastroparesis, status post pacemaker. 5. Intermittent constipation. 6. Diabetes. RECOMMENDATIONS: 1. Will keep the patient on IV fluids. We will continue on Protonix twice daily. She is on Compazine every day. She is on Phenergan 12.5 mg every 6 hours as needed. We will start her on bowel regimen with Dulcolax per rectal b.i.d. She will keep a good control of diabetes. We also encouraged to keep good compliance with medications and followups. 2. The patient is on IV Dilaudid. We need to reduce the dose or frequency or avoid narcotics altogether to help with gastroparesis. 3. Will schedule patient for EGD tomorrow with Dr. Cano. The risks, benefits, indications, alternatives of EGD were discussed the patient and family at bedside. All questions answered. 4. Further recommendations pending hospital course. cc: MD Jermain Villa MD
[2018-10-15] MEDS: SODIUM CHLORIDE 0.9% INJ PRN ×2 (11:25→17:53)
--- NOTE | 2018-10-15 18:12 | PROGRESS NOTE ---
DATE: 10/15/2018 SUBJECTIVE: She still has some nausea. It sounds like there was concern over possible food impaction. She was seen today by Dr. Haq but in any case we did not end up pursuing EGD today. In any case the patient will be maintained on fluids and antiemetics, pain control and evaluate for disimpaction procedure tomorrow. cc: Jermain Gregory MD
[2018-10-15] MEDS: AMBIEN PO SCH (21:56)
[2018-10-15] MEDS: DULCOLAX PR SCH (21:57)
[2018-10-15] MEDS: BASAGLAR SUBQ SCH (23:46)
[2018-10-16] MEDS: CARAFATE LIQUID PO SCH ×5 (00:23→20:12)
[2018-10-16] MEDS: HUMALOG SUBQ SCH ×6 (00:53→21:26)
[2018-10-16] MEDS: PHENERGAN IV PRN ×4 (00:53→20:12)
[2018-10-16] MEDS: SODIUM CHLORIDE 0.9% INJ PRN ×4 (00:53→20:12)
[2018-10-16] MEDS: DILAUDID IV PRN ×6 (00:56→20:12)
[2018-10-16] MEDS: HEPARIN SUBQ SCH ×3 (04:34→15:52)
[2018-10-16 07:02] LABS: BASO# 0.02 X1000 (0.0-0.2); BASO% 0.3 % (0.0-0.8); EOS# 0.11 X1000 (0.0-0.7); EOS% 1.6 % (0.0-10.0); HEMOGLOBIN 9.6 g/dL (12.0-16.0); LYMPH# 2.34 X1000 (1.2-3.4); MCH 25.9 PG (27-31); MCV 81.1 FL (81-99); MONO# 0.38 X1000 (0.11-0.59); MONO% 5.4 % (1.7-9.3); MPV 10.9 FL (7.4-10.4); NEUT# 4.24 X1000 (1.4-6.5); NEUT% 59.7 % (42.2-75.2); PLT 325 X1000 (130-400); RDW 15.5 % (11.5-14.5); WBC 7.09 X1000 (4.8-10.8)
[2018-10-16 07:31] LABS: CREATININE 1.7 mg/dL (0.5-0.9); POTASSIUM 4.2 mmol/L (3.5-5.1)
[2018-10-16] MEDS: NS 1,000 ML IV SCH (07:58)
[2018-10-16] MEDS: PROTONIX IV SCH ×2 (08:06→20:13)
[2018-10-16] MEDS: DULCOLAX PR SCH ×2 (08:06→21:26)
[2018-10-16] MEDS: SODIUM CHLORIDE 0.9% INJ SCH ×2 (08:07→20:12)
[2018-10-16] MEDS ORDERED: XYLOCAINE-MPF 2% ONE (11:04)
[2018-10-16] MEDS ORDERED: DIPRIVAN 1% ONE (11:04)
[2018-10-16] MEDS ORDERED: QUELICIN (DOSE) ONE (11:04)
[2018-10-16] MEDS: NORVASC PO SCH (13:59)
[2018-10-16] MEDS ORDERED: G.I. COCKTAIL PO ONE (14:05)
--- NOTE | 2018-10-16 14:32 | OPERATIVE NOTE ---
PROCEDURE DATE : 10/16/2018 PROCEDURE PERFORMED: Upper gastrointestinal endoscopy. PROVIDER: Charles Cano MD INDICATION: Nausea, vomiting, dysphagia, history of gastroparesis and esophagitis. MEDICATIONS: General anesthesia. DESCRIPTION OF PROCEDURE: Prior to the procedure, a history and physical was performed, and the patient's medication and allergies were reviewed. The patient's tolerance to previous anesthesia was also reviewed. The risks and benefits of the procedure and the sedation options and risks were discussed with the patient. All questions were answered. Informed consent was obtained. After reviewing the risks and benefits, the patient was deemed in satisfactory condition to undergo the procedure. After informed consent was obtained, the scope was passed under direct visualization. Throughout the procedure, the patient's blood pressure, pulse and oxygen saturations were monitored continuously. Endoscope was introduced through the mouth and advanced to the mid esophagus where a moderate to severe esophageal stenosis was noted. Upper endoscope was switched to pediatric endoscope, and the scope was able to be passed into the second portion of the duodenum without difficulty. The patient tolerated the procedure well. COMPLICATIONS: None. No immediate complications. ESTIMATED BLOOD LOSS: Minimal. FINDINGS: There was a 5 cm long benign-appearing, intrinsic esophageal stricture from 30 cm to 35 cm from the incisors, diameter approximately 7 to 8 mm. There was associated severe LA grade D esophagitis with suspected esophageal dissecans seen in this area with spontaneous contact bleeding noted with passage of the endoscope. Within the stomach, there was a 1 cm cratered ulcer in the antrum that was clean based. The duodenum revealed a 2 cm cratered ulcer with yellow exudate and 2 pigmented spots without evidence of active bleeding. Second portion of the duodenum was normal. Retroflexion in the stomach revealed a small hiatal hernia. IMPRESSION: 1. Esophageal stricture. 2. LA grade D esophagitis. 3. Gastric ulcer. 4. Large duodenal ulcer. 5. Small hiatal hernia. PLAN: - Resume a diabetic liquid diet as tolerated - Continue IV PPI b.i.d. for now. - The patient will need repeat EGD in the coming weeks to assess healing of her esophagitis as well as esophageal dilation. - Please call with any questions. We will follow with you. MTDD
--- NOTE | 2018-10-16 15:02 | PROGRESS NOTE ---
DATE: 10/16/2018 SUBJECTIVE: Patient just had an upper endoscopy today. It looks like she has some gastric ulcers, I thing duodenal ulcer, esophagitis and esophageal stricture. She has been placed on Carafate and PPIs. For now, we will continue with the same management. She is tolerating p.o. I will order x1 dose of GI cocktail. OBJECTIVE: Vital Signs: Temperature 98 degrees, pulse 95, respiratory rate 16, blood pressure 120/82, oxygen saturation 100% on room air. HEENT: Head normocephalic. No trauma. PERRLA. Neck: Supple. No JVD. No masses. Central trachea. Chest: Clear to auscultation. No wheezing. No rales. Abdomen: Soft, nontender, nondistended. No hepatosplenomegaly. She does have a abdominal scar which is old. She has a gastric pacemaker. Positive bowel sounds. Extremities: No edema. No clubbing. No cyanosis. Neurological examination: The patient is alert and oriented x3. No focal deficits. LABORATORY: WBC 7, hemoglobin 9.6, hematocrit 30, platelets 325. Sodium 137, potassium 4.2, chloride 112, bicarbonate 15. BUN 13, creatinine 1.7, glucose 80, TSH 2.7. ASSESSMENT AND PLAN: 1. Questionable food impaction, status post esophagogastroduodenoscopy. Apparently there is no food in the esophageal space, but she does have apparently a stricture, esophagitis, gastric and duodenal ulcer. She has been placed on proton pump inhibitors and Carafate. 2. Severe gastroparesis. Continue with the same medication. She has been placed back on her home medications. 3. Type 2 diabetes. Continue with the same management, sliding scale insulin and pattern of blood sugar. 4. Hypertension. Continue with Norvasc. 5. Acute on chronic kidney disease, it looks better today, close to her baseline. cc: Kiet Manning MD
[2018-10-16] MEDS: COMPAZINE PO SCH (17:14)
[2018-10-16] MEDS: BASAGLAR SUBQ SCH (21:26)
[2018-10-16] MEDS: AMBIEN PO SCH (21:26)
[2018-10-17] MEDS: DILAUDID IV PRN ×5 (01:24→14:10)
[2018-10-17] MEDS: HUMALOG SUBQ SCH ×4 (01:24→14:27)
[2018-10-17] MEDS: CARAFATE LIQUID PO SCH ×3 (01:24→14:42)
[2018-10-17] MEDS: NS 1,000 ML IV SCH ×3 (01:28→11:18)
[2018-10-17] MEDS: SODIUM CHLORIDE 0.9% INJ PRN (04:21)
[2018-10-17] MEDS: PHENERGAN IV PRN ×2 (04:21→10:26)
[2018-10-17] MEDS: HEPARIN SUBQ SCH (04:22)
[2018-10-17 06:38] LABS: BASO# 0.01 X1000 (0.0-0.2); BASO% 0.2 % (0.0-0.8); EOS# 0.11 X1000 (0.0-0.7); EOS% 2.7 % (0.0-10.0); HEMATOCRIT 26.6 % (37.0-47.0); HEMOGLOBIN 8.5 g/dL (12.0-16.0); LYMPH# 2.04 X1000 (1.2-3.4); LYMPH% 50.2 % (20.5-51.1); MCH 26.2 PG (27-31); MCV 81.8 FL (81-99); MONO# 0.31 X1000 (0.11-0.59); MONO% 7.6 % (1.7-9.3); MPV 10.6 FL (7.4-10.4); NEUT# 1.59 X1000 (1.4-6.5); NEUT% 39.3 % (42.2-75.2); PLT 275 X1000 (130-400); RBC 3.25 XMIL (4.2-5.4); RDW 15.6 % (11.5-14.5); WBC 4.06 X1000 (4.8-10.8)
[2018-10-17 07:06] LABS: CALCIUM 7.4 mg/dL (8.8-10.2); CREATININE 1.5 mg/dL (0.5-0.9); MAGNESIUM 1.6 mg/dL (1.5-2.7)
[2018-10-17 07:14] VITALS: BP 135/86
[2018-10-17] MEDS: SODIUM CHLORIDE 0.9% INJ SCH ×2 (08:01→10:26)
[2018-10-17] MEDS: PROTONIX IV SCH (08:01)
[2018-10-17] MEDS: COMPAZINE PO SCH (08:02)
[2018-10-17] MEDS: NORVASC PO SCH (08:02)
[2018-10-17] MEDS: DULCOLAX PR SCH (11:10)
--- NOTE | 2018-10-18 05:37 | DISCHARGE SUMMARY ---
ADMISSION DATE: 10/15/2018 DISCHARGE DATE: 10/17/2018 DISCHARGE DIAGNOSES: 1. Esophageal stricture with [place] grade D esophagitis. 2. Gastric ulcer. 3. Large duodenal ulcer. 4. Small hiatal hernia. 5. Severe gastroparesis status post gastric stimulator/pacemaker. 6. Type 2 diabetes. 7. Hypertension. 8. Acute on chronic kidney disease, resolved. HOSPITAL COURSE: The patient is a 43-year-old female with a past medical history of severe gastroparesis status post gastric pacemaker, hypertension poorly controlled, diabetes, diabetic neuropathy, history of chronic medical noncompliance, and esophageal stricture with a history of gastritis and esophagitis. Also she has a history of marijuana use and abuse. She has been made aware that that can cause hyperemesis, but over the years she has declined wanting to quit. At any rate, apparently she was eating some chicken and spaghetti and she choked. She felt as if she could no swallow and came to the emergency room. Since that time she has had some intractable nausea and vomiting. She was admitted, initially her potassium was decreased and her creatinine was elevated, as well as her glucose. The Gastroenterology Department was consulted. This patient was placed on IV fluids. They did an endoscopy that showed esophageal stricture, LA grade D esophagitis, gastric ulcer, large duodenal ulcer and a small hiatal hernia. They have recommended to continue with PPI b.i.d., and she was placed also on Carafate. They suggested to repeat an EGD in the coming weeks to assess healing of the esophagitis as well as esophageal dilation, and healing of the gastric ulcers. She was placed on a liquid diet which she has been tolerating. Today she is not having nausea or vomiting. Her blood work is better. Her kidney function recovered and now is basically her baseline. We suggested to continue with a liquid diet and follow up with the Gastroenterology Department in 1 or 2 weeks, she will need to call them for an appointment. At the moment of discharge this patient was in a stable medical condition, tolerating p.o. and ambulating. No vomiting at all. PHYSICAL EXAMINATION: Vital Signs: Temperature 98.2 degrees, pulse 87, respiratory rate 16, blood pressure 135/86, oxygen saturation 100% on room air. HEENT: Head is normocephalic. No trauma. PERRLA. Neck: Supple. No JVD. No masses. Central trachea. Chest: Clear to auscultation. No wheezing. No rales. Abdomen: Soft, nontender and nondistended. No hepatosplenomegaly. She does have an abdominal scar which is old, and she has a gastric pacemaker. Positive bowel sounds. Extremities: No edema. No clubbing. No cyanosis. Neurological: The patient is alert and oriented x3. No focal motor deficits. LABORATORY DATA: WBC 4, hemoglobin 8.5, hematocrit 26.6, platelets 275,000. Sodium 139, potassium 4, chloride 115, bicarbonate 16, BUN 8, creatinine 1.5, glucose 82, calcium 7.4, magnesium 1.6. DISCHARGE MEDICATIONS: 1. Lantus 12 units subcutaneous at bedtime. 2. Amlodipine 5 mg p.o. daily. 3. Zolpidem 10 mg p.o. at bedtime. 4. Carafate 1 g p.o. 4 times a day. 5. Compazine 5 mg p.o. daily. 6. Protonix 40 mg p.o. b.i.d. for 1 month and then once a day. TIME SPENT: Time spent discharging this patient was 35 minutes. cc: Kiet Manning MD
--- NOTE | 2018-10-18 11:11 | GASTROENTEROLOGY PROGRESS NOTE ---
DATE: 10/17/2018 SUBJECTIVE: EGD yesterday was performed yesterday without complications. No acute overnight events. Patient tolerating full liquid diet. No melena, BRBPR, SOB. Mild epigastric pain and odynophagia. OBJECTIVE: VS: T 98.2 HR 87 RR 16 BP 135/86 100RA GEN: awake, alert, NAD HEENT: anicteric scleral, MMM NECK: No JVD, LAD CV: RRR, no murmurs PULM: CTAB, no wheezing ABD: mild epigastric TTP, no rebound or guarding, NABS EXT: no cce LABS: WBC 4.0 hgb 8.5 from 9.6 plts 275K K 3.3 Cr 1.5 CO2 13 PROCEDURES: EGD 10/16/2018 IMPRESSION: 1. Esophageal stricture. 2. LA grade D esophagitis. 3. Gastric ulcer. 4. Large duodenal ulcer. 5. Small hiatal hernia. PLAN: - Resume a diabetic liquid diet as tolerated - Continue IV PPI b.i.d. for now. - The patient will need repeat EGD in the coming weeks to assess healing of her esophagitis as well as esophageal dilation. - Please call with any questions. We will follow with you. A/P: Ms. Bobby is a 43 year old woman with IDDM2 c/b gastroparesis s/p gastric pacemaker, h/o GERD with esophagitis who was admitted with dysphagia found to have long benign appearing esophageal stricture with question dissecans, clean base antral ulcer, and large duodenal ulcer with pigmented spots. She was on PPI and carafate. She admits to taking Goody powders at home, which likely responsible for her stricture and ulcers. #Esophageal stricture: continue PPI IV BID, carafate QID; will need repeat outpatient EGD in 4-6 weeks for serial dilation; continue full liquids, ensure with meals #PUD: NSAID-induced: PPI as above; avoid ASA/NSAIDs #Anemia: 2/2 PUD/esophagitis: will need H/H check as outpatient #Gastroparesis: 2/2 gastric pacemaker, small frequent meals #GERD: PPI as above [facility]
== END 2018-10-17 15:25 | disposition home or self-care (01) | DRG 392 ==
LOC: P.ED 21:14 → 4N 10-15 01:56 → SUATTDRO 10-15 01:56 → 4N 10-15 03:48
PROVIDERS: ATTEND Internal Medicine
CPT/HCPCS: 71010; 71045; 74000; 74018; 80048; 80053; 82150; 82948; 83036; 83690; 83735; 84443; 85025; 87275; 87276; 87804; 96361; 96374; 96375; 99285; A9270; C9113; J0330; J1170; J1610; J1644; J1815; J2060; J2175; J2550; J3480; J7030; S0164; S0183; XXXXX

== ENCOUNTER 2018-11-01 15:22 | Inpatient (IN) ==
[2018-11-01 17:50] LABS: BASO# 0.02 X1000 (0.0-0.2); BASO% 0.4 % (0.0-0.8); EOS# 0.19 X1000 (0.0-0.7); EOS% 3.4 % (0.0-10.0); HEMATOCRIT 31.2 % (37.0-47.0); HEMOGLOBIN 10.5 g/dL (12.0-16.0); LYMPH# 2.26 X1000 (1.2-3.4); LYMPH% 39.9 % (20.5-51.1); MCH 25.5 PG (27-31); MCHC 33.7 g/dL (33-37); MCV 75.9 FL (81-99); MONO# 0.37 X1000 (0.11-0.59); MONO% 6.5 % (1.7-9.3); MPV 11.9 FL (7.4-10.4); NEUT# 2.83 X1000 (1.4-6.5); NEUT% 49.8 % (42.2-75.2); PLT 436 X1000 (130-400); RBC 4.11 XMIL (4.2-5.4); RDW 16.2 % (11.5-14.5); WBC 5.67 X1000 (4.8-10.8)
--- NOTE | 2018-11-01 17:54 | PROVIDER DOCUMENTATION ---
This chart was entered by Amy Shankar Scribe, acting as scribe for Isaiah Hernandez MD. HPI-Abdominal Pain/GI Problem - General Chief Complaint: Abnormal Lab[s] Stated Complaint: DIFFICULTY SWALLOWING, SOB Time Seen by Provider: 11/01/18 17:15 Source: patient Allergies/Adverse Reactions: Patient Allergies Allergy/AdvReac Type Severity Reaction Status Date / Time No Known Allergies Allergy Verified 11/01/18 17:49 Home Medications: Home Medication List Medication Instructions Recorded Confirmed Last Taken Type Zolpidem [Ambien] 10 mg PO QHS #20 tab 10/17/18 11/01/18 1 Day Ago Rx ~10/31/18 - History of Present Illness-ABD Nature of Presenting Problems: Patient is a 43 year old female who presents to the ED via EMS with generalized abdominal pain. Patient states nausea and vomiting. Patient states symptoms have been present for 1 week. Patient states she feels like she has a food impaction in her esophagus. Patient does not report diarrhea. Abdominal Pain Onset Location: reports: generalized abdomen Pain Radiation: reports: no radiation Quality of Pain: reports: aching Severity in ED: reports: mild Onset/Duration: reports: 1 week ago Timing: reports: still present Activities at Onset: reports: light activity Modifying Factors: improves with: nothing Associated Symptoms: reports: nausea, vomiting Last BM: unsure Dark Stools Present?: reports: none noticed Rectal Bleeding: reports: none Rectal Pain: reports: none Emesis Description: reports: clear Bruising or Bleeding Gums?: No Similar Symptoms Previously?: Yes Recently seen or treated by another doctor?: Yes Review of Systems - Adult - REVIEW OF SYSTEMS - ADULT Constitutional: reports: no symptoms reported. denies: chills Eyes: reports: no symptoms reported Ears, Nose, Mouth & Throat: reports: no symptoms reported Cardiovascular: reports: no symptoms reported Respiratory: reports: no symptoms reported Gastrointestinal: reports: abdominal pain, nausea, vomiting. denies: diarrhea Genitourinary: reports: no symptoms reported Musculoskeletal: reports: no symptoms reported Integumentary: reports: no symptoms reported Neurological: reports: no symptoms reported Psychiatric: reports: no symptoms reported Endocrine: reports: no symptoms reported Hematologic/Lymphatic: reports: no symptoms reported Allergic/Immunologic: reports: no symptoms reported All Other Systems: Reviewed and Negative Past History - Adult - PAST MEDICAL HISTORY-ADULT Review of Records: reports: Nursing Assessment Review, Medications Reviewed, Social history reviewed & non-contributory. Major Childhood Illnesses: reports: denies history Cardiovascular: reports: HTN, hyperlipidemia Respiratory: reports: denies history Gastrointestinal: reports: GERD (with esophagitis and stenosis), GI bleed, ulcer , other (diabetic gastroparesis, erosive gastritis and esophagitis; gastric pacemaker) Obstetrical/Gynecological: reports: denies history Genitourinary: reports: kidney disease, other (ammenorrhea for 1 year) Musculoskeletal: reports: denies history Neurological: reports: other (DM neuropathy) Psychiatric: reports: anxiety, depression Endocrine/Immune: reports: anemia, Diabetes Other Conditions: reports: denies history Additional History: frequent ER visits - PRIOR SURGERIES/PROCEDURES Surgical/Procedure History: reports: cholecystectomy, indwelling device ( Portacath), other (gastric stimulator) - IMMUNIZATION STATUS Childhood Immunizations: See Nurse Assessment Flu Vaccine: See Nurse Assessment - FAMILY HISTORY Family History: reviewed, not pertinent - SOCIAL HISTORY Smoking: denies Substance Use: alcohol Alcohol Use Frequency: occasionally Physical Exam-General - PHYSICAL EXAM-ADULT Initial Vital Signs Reviewed: Yes - CONSTITUTIONAL General Appearance: alert, no apparent distress - RESPIRATORY Respiratory: chest non-tender, lungs clear, normal breath sounds - CARDIOVASCULAR Cardiovascular: normal peripheral pulses, regular rate, rhythm - GASTROINTESTINAL (ABDOMEN) Abdominal Exam: normal bowel sounds, non tender, soft - MUSCULOSKELETAL Back Exam: normal inspection Extremity: non-tender, normal inspection - SKIN Integumentary: normal color, normal turgor, warm/dry - NEUROLOGIC Neurologic: grossly normal - PSYCHIATRIC Psych/Mental Status: normal mood/affect, oriented x 3 Progress - PLAN OF CARE/RESULTS Progress/Plan/Lab Results: Vital Signs - 8 hr 11/01/18 15:35 Temperature 98.4 F Pulse Rate 106 H Respiratory Rate 18 Blood Pressure 139/104 O2 Sat by Pulse Oximetry 100 Result Diagrams: 11/01/18 16:42 11/01/18 16:42 - CONSULTS/PCP/HOSPITALIST Notification #1 *Consult/PCP/Hospitalist*: DR GAONA Time Discussed: 19:16 Consult Disposition: Admit Departure - Departure Date of Disposition Decision: 11/01/18 Time of Disposition Decision: 19:15 DIAGNOSIS: Nausea & vomiting, Gastroparesis, Stricture and stenosis of esophagus Disposition: ADMITTED INPATIENT 09 Certified Medical Emergency: Emergent Condition: Stable Referrals and Follow-Ups: None,PCP [Primary Care Provider] - - Critical Care Note This patient required my direct & personal management of CC.: No Attestation - Physician/ GAUDENCIO Attestation The physician spent face to face time with patient:: Yes Advanced Practice Provider documentation review:: Supervising physician onsite and consulted in the evaluation and care of this patient. The physician did have a face to face encounter with the patient. This chart was documented by the indicated scribe, (Amy Shankar Scribe) and accurately reflects the services I performed and decisions made by me, Isaiah Hernandez MD, as attested by the provider's signature.
[2018-11-01 18:14] LABS: ALB/GLOB RATIO 1.1; ALBUMIN 3.4 g/dL (3.5-5.0); CALCIUM 8.2 mg/dL (8.8-10.2); CREATININE 1.6 mg/dL (0.5-0.9); POTASSIUM 3.2 mmol/L (3.5-5.1); TOTAL BILIRUBIN 0.19 mg/dL (0.20-1.00); TOTAL PROTEIN 6.5 g/dL (6.3-8.3)
[2018-11-01] MEDS: PROTONIX IV SCH (19:30)
[2018-11-01] MEDS ORDERED: NS 1,000 ML IV ONE (19:43)
[2018-11-01] MEDS: NS 1,000 ML IV SCH (19:43)
[2018-11-01] MEDS: PHENERGAN IV PRN (19:53)
[2018-11-01] MEDS: POTASSIUM CHLORIDE 20 MEQ/SWI 20 MEQ/100 ML IVPB IV SCH ×2 (20:00→22:00)
[2018-11-01 20:04] LABS: HEMOGLOBIN A1C 6.9 % (4.8-6.0)
[2018-11-01] MEDS: DEMEROL IV PRN ×2 (20:15→23:22)
--- NOTE | 2018-11-01 20:58 | HISTORY AND PHYSICAL ---
PRIMARY CARE PHYSICIAN: Dr. Caldera in [place] in [place]. CHIEF COMPLAINT: Intractable nausea and vomiting. HISTORY OF PRESENT ILLNESS: This is a 43-year-old female, well known to our service for multiple visits to the ER and admission to the hospital. She was recently seen in the hospital from 10/15 to 10/17 for intractable nausea and vomiting, and they found a stricture. The patient was scoped at that time by Dr. Charles Cano and there were recommendations for her to be seen in the office. The patient reports that 1 week ago she went to the ER because she was having nausea and vomiting. She was treated with IV fluids and Phenergan, and she was sent home. She was about to be seen by GI today but apparently she was feeling sick and feeling weak as well, so she was told to come to the ER, as per Dr. Haq. Dr. Isaiah Hernandez, ER doctor, mentioned that as per direct recommendations of Dr. Haq, the patient needs to be admitted to the hospital to be scoped tomorrow. So we will admit her. We will provide IV fluids, IV nausea and pain medications as well. The patient reports she has been seen by the GI team at [facility] in [place] last year. She does remember when, and she is supposed to see them this year. Primary care doctor is working on get an appointment for her to as well. At this point she is going to be admitted to the hospital. She is going to be seen by Dr. Haq, SATHYA, tomorrow PAST MEDICAL HISTORY: 1. Diabetes mellitus type 2. Apparently she said that she is well controlled for the last 6 months. She does not need any long acting insulin like Lantus. 2. Diabetic neuropathy. 3. History of gastritis and chronic esophagitis. 4. Poorly controlled hypertension. 5. Severe gastroparesis, status post gastric pacemaker. PAST SURGICAL HISTORY: 1. Cholecystectomy. 2. Gastric pacemaker placement. 3. Port-A-Cath placement. 4. Feeding tube placement and removal. SOCIAL HISTORY: She reports she is not smoking marijuana for the last 7 months. She is not drinking alcohol for the same period of time. She is not using any recreational drugs including pain pills. ALLERGIES: No known drug allergies. FAMILY HISTORY: Positive for diabetes mellitus. MEDICATIONS: Home medications according to her: 1. She is using sliding scale insulin regular. 2. Ambien 5 mg 1 tablet p.o. at bedtime p.r.n. for insomnia. 3. The patient reports taking blood pressure medication, but does not remember the medication and it is not listed in the computer yet. REVIEW OF SYSTEMS: Eleven systems were reviewed, and all symptoms are related to H and P. PHYSICAL EXAMINATION: VITAL SIGNS: Temperature 98.4 degrees, heart rate 96, respiratory rate 22, blood pressure 160/109, O2 saturation 94% on room air. GENERAL: This is a chronically ill-appearing 43-year-old female lying in bed, in no acute distress. HEENT: Head is normocephalic, atraumatic. Mucous membranes dry. Pupils equal , round and reactive to light and accommodation. Sclerae anicteric. Conjunctivae are pink. NECK: No JVD noted. No carotid bruits. No lymphadenopathy. No thyromegaly. CARDIOVASCULAR: S1, S2 heard. No murmurs, gallops or rubs. Regular rate and rhythm. RESPIRATORY: Clear bilaterally to auscultation. No work of breathing or using accessory muscles. There is a Port-A-Cath noted, clean, dry and intact. ABDOMEN: Soft, a little bit distended and diffusely tender to palpation. Bowel sounds present. No organomegaly noted. No signs of peritoneal irritation. EXTREMITIES: No clubbing, cyanosis or edema. Peripheral pulses present in both legs. NEUROLOGIC: The patient is alert and oriented x3. Moves all 4 extremities. LABORATORY DATA: White cell count 5.67, hemoglobin 10.5, hematocrit 31.2, platelets 436,000. Potassium 3.2, creatinine 1.6, alkaline phosphatase 143. ASSESSMENT AND PLAN: 1. Severe intractable nausea and vomiting. The patient reports having those symptoms for the last 7 days, now is weak and looks like she is dehydrated. At this point we are going to provide intravenous fluids, in this case normal saline 1 L bolus and then we will continue with 125 mL/h normal saline as well. It is noted that this recurrent nausea and vomiting is because apparently she has not been taking any Protonix since she was discharged. Dr. Haq is going to scope her tomorrow as per conversation with Dr. Henrandez, emergency room physician. We will put the order for consult in and we will put her on NPO as well. We will start Protonix 40 mg intravenously q.12 hours and also we will treat nausea with Phenergan, because apparently the patient did not respond to other nausea medication. We will monitor this patient closely. 2. Severe gastroparesis, status post gastric pacemaker placement. Aware. We will continue with Phenergan. 3. Chronic kidney disease stage 2. I have seen the creatinine levels for the last couple of years, and apparently she has some degree of kidney disease. The creatinine baseline ranged between 1.2 and 1.3. Here it is 1.6, that I think is elevated because of dehydration and constant nausea and vomiting. I do think that is not too far from baseline, though. In any case, we will continue with intravenous fluids and we will check BMP daily. 4. Diabetes mellitus type 2. The patient reports that she is not using any basal insulin for at least 6-7 months, because the blood sugar has been better controlled. She is using only sliding scale insulin, regular insulin. At this point we will check hemoglobin A1c again and we will continue with sliding scale here in the hospital. 5. Hypertension. Blood pressure is mildly elevated, but she is not able to tolerate anything by mouth. We will provide hydralazine 10 mg intravenously q.4 hours p.r.n. for blood pressure greater than 180 systolic. Further recommendations to follow according to the clinical situation of the patient. cc: Clyde Dominguez MD MTDD
[2018-11-01] MEDS: HUMALOG SUBQ SCH (21:00)
[2018-11-01] MEDS: AMBIEN PO SCH (21:00)
[2018-11-01] MEDS: CARAFATE LIQUID PO SCH (22:00)
[2018-11-02] MEDS: CARAFATE LIQUID PO SCH ×4 (02:00→21:35)
[2018-11-02] MEDS: PHENERGAN IV PRN ×4 (02:10→20:34)
[2018-11-02] MEDS: DEMEROL IV PRN ×7 (02:15→21:34)
[2018-11-02] MEDS: NS 1,000 ML IV SCH ×2 (06:13→14:07)
[2018-11-02] MEDS: HUMALOG SUBQ SCH ×4 (06:27→21:41)
[2018-11-02] MEDS: SODIUM CHLORIDE 0.9% INJ PRN ×3 (08:05→20:34)
[2018-11-02 08:31] LABS: HEMATOCRIT 28.9 % (37.0-47.0); HEMOGLOBIN 9.5 g/dL (12.0-16.0); MCH 25.6 PG (27-31); MCHC 32.9 g/dL (33-37); MCV 77.9 FL (81-99); MPV 11.3 FL (7.4-10.4); RBC 3.71 XMIL (4.2-5.4); RDW 16.6 % (11.5-14.5); WBC 4.05 X1000 (4.8-10.8)
[2018-11-02 08:57] LABS: CALCIUM 7.7 mg/dL (8.8-10.2); CREATININE 1.4 mg/dL (0.5-0.9); POTASSIUM 3.6 mmol/L (3.5-5.1)
[2018-11-02] MEDS: SODIUM CHLORIDE 0.9% INJ SCH ×2 (09:13→21:35)
[2018-11-02] MEDS: PROTONIX IV SCH ×2 (09:13→21:35)
--- NOTE | 2018-11-02 17:23 | PROGRESS NOTE ---
DATE: 11/02/2018 SUBJECTIVE: The patient complains of nausea and back pain. OBJECTIVE: Vital Signs: Temperature 97.8, blood pressure 137/93, heart rate 82, respirations 16, O2 saturation 100% on room air. General: This is a middle-aged female lying in bed in no acute distress. Heart: S1, S2 normal. Regular rate and rhythm. Lungs: Clear to auscultation bilaterally. Abdomen: Positive bowel sounds. Soft. Diffuse tenderness. Extremities: No edema. No cyanosis. Neurologic: The patient is alert and oriented x4. LABS: White blood cell count 4, hemoglobin 9.5, hematocrit 28, platelets 374. Sodium 141, potassium 3.6, chloride 115, CO2 of 17, BUN 7, creatinine 1.4, glucose 87, calcium 7.7. ASSESSMENT AND PLAN: 1. Grade B esophagitis. Continue on Protonix. 2. Gastric ulcer and a large duodenal ulcer. Continue with Carafate and Protonix. 3. Esophageal stricture. This will be addressed once the patient's esophagitis heals. 4. Diabetes mellitus. We will cover the patient with sliding scale insulin at this time. 5. Chronic kidney disease stage 2. Stable. 6. Disposition. If the patient continues to improve, she can be discharged home tomorrow. cc: Debra Maravilla MD
--- NOTE | 2018-11-02 20:44 | GASTROENTEROLOGY CONSULTATION ---
DATE: 11/02/2018 REASON FOR CONSULTATION: Intractable nausea and vomiting. HISTORY OF PRESENT ILLNESS: Ms. Kaleigh Bobby is a 43-year-old woman with a past medical history significant for insulin-dependent diabetes complicated by gastroparesis requiring gastric pacemaker placement, history of GERD with esophagitis, and recent admission for nausea, vomiting and abdominal pain. She underwent EGD on 10/16/2018, which showed a long esophageal stricture, LA grade D esophagitis, gastric and duodenal ulcers. The patient was started on a PPI and discharged with a plan of reassessing esophagitis for healing and possible dilation in 4-5 weeks. Since discharge, the patient has been noncompliant with PPI therapy. She has been holding NSAIDs, and over the last 7 days she has developed non-bloody, non-bilious vomiting as well as epigastric pain up to 5-6 times a day. She denies any chest pain or trouble breathing. She is tolerating a soft diet with rare episodes of dysphagia. No regurgitation. REVIEW OF SYSTEMS: As per HPI. Otherwise, 12-point review of systems is negative. PAST MEDICAL HISTORY: 1. Insulin-dependent diabetes. 2. Gastroparesis status post gastric pacemaker. 3. Hypertension. 4. Diabetic neuropathy. 5. History of esophageal stricture. 6. Esophagitis. 7. Gastritis. 8. GERD. PAST SURGICAL HISTORY: 1. Cholecystectomy. 2. Prior feeding tube placement. 3. Gastric pacemaker. 4. Portacath. SOCIAL HISTORY: She is a former smoker. She denies any alcohol, although she does smoke marijuana occasionally. ALLERGIES: No known drug allergies. MEDICATIONS: The patient reports only being on her insulin and Norvasc. FAMILY HISTORY: No family history of esophageal disorders or gastric malignancy. PHYSICAL EXAMINATION: VITAL SIGNS: Temperature 97.8, heart rate 87, respiratory rate 16, blood pressure 140/98, O2 saturation 100% on room air. GENERAL: The patient is awake, alert and oriented, in no acute distress. HEENT: Sclerae are anicteric. Moist mucous membranes. NECK: No JVD. No lymphadenopathy. CHEST: Portacath in right chest wall. CARDIAC: Regular rate and rhythm. No murmurs, rubs, or gallops. LUNGS: Clear to auscultation bilaterally. ABDOMEN: Soft, nontender, nondistended. Normoactive bowel sounds. No rebound or guarding. EXTREMITIES: No clubbing, cyanosis, or edema. NEUROLOGIC: Nonfocal. Moving all extremities symmetrically. LABORATORY DATA: White count 4.0, hemoglobin 9.5, platelets 374,000. Sodium 141, potassium 3.6, chloride 115, bicarb 17, BUN 7, creatinine 1.4. LFTs show a bilirubin of 0.19, albumin of 3.4, AST of 12, ALT of 9, alkaline phosphatase of 143. ASSESSMENT/PLAN: Ms. Kaleigh Bobby is a 43-year-old woman with a history of type 2 diabetes complicated by gastroparesis requiring gastric pacemaker, GERD and recent diagnosis of LA grade D esophagitis, esophageal stricture, and peptic ulcer disease, who presents with recurrent intractable nausea and vomiting. She has been noncompliant with PPI therapy. She has stopped taking NSAIDs. Her symptoms are most likely from untreated peptic ulcer disease and esophagitis as well as stricture. She does complain of some mild dysphagia to soft foods. No regurgitation. No significant odynophagia. I spent a long time talking with her about the importance of taking her medications and the risk of worsening esophageal stricture as well as perforation of her duodenal and peptic ulcers. She communicated understanding and was agreeable with continuing therapy and reevaluating for EGD as an outpatient once her ulcers have healed. 1. Intractable nausea and vomiting secondary to esophagitis and peptic ulcer disease. Gastroparesis does not appear to be involved here, although it cannot be excluded. Recommend resuming full liquid diet at this time as tolerated. Antiemetics as needed. Small, frequent, low-fat meals. Resume proton pump inhibitor, pantoprazole 40 mg b.i.d. as well as Carafate 1 gram q.i.d. 2. Esophageal stricture. The patient will need to be on therapy for 4-6 weeks prior to repeating outpatient esophagogastroduodenoscopy for possible dilation. She should continue a soft diet as tolerated. Dysphagia precautions. 3. Peptic ulcer disease, nonsteroidal antiinflammatory induced. The patient is avoiding nonsteroidal antiinflammatories and aspirin. Proton pump inhibitor as above. 4. Anemia secondary to peptic ulcer disease. 6. Esophagitis. Hemoglobin and hematocrit are stable. No overt bleeding. 7. Gastroparesis, status post gastric pacemaker. Again, small frequent meals. 8. Gastroesophageal reflux disease. Proton pump inhibitor as above. 9. If patient is able to tolerate a full liquid diet, the patient can be discharged from a gastrointestinal perspective with outpatient followup within 2-4 weeks. Please call with any questions or concerns. We appreciate this consult.
[2018-11-02] MEDS: AMBIEN PO SCH (21:35)
[2018-11-03] MEDS: DEMEROL IV PRN ×4 (01:45→11:08)
[2018-11-03] MEDS: PHENERGAN IV PRN ×2 (04:42→12:14)
[2018-11-03] MEDS: SODIUM CHLORIDE 0.9% INJ SCH ×2 (04:42→08:05)
[2018-11-03] MEDS: HUMALOG SUBQ SCH ×2 (06:30→11:47)
[2018-11-03] MEDS: CARAFATE LIQUID PO SCH ×2 (06:30→08:05)
[2018-11-03 07:33] LABS: HEMATOCRIT 31.1 % (37.0-47.0); HEMOGLOBIN 10.2 g/dL (12.0-16.0); MCH 26.2 PG (27-31); MCHC 32.8 g/dL (33-37); MCV 79.9 FL (81-99); MPV 11.7 FL (7.4-10.4); RBC 3.89 XMIL (4.2-5.4); RDW 17.2 % (11.5-14.5); WBC 3.86 X1000 (4.8-10.8)
[2018-11-03 07:52] LABS: MAGNESIUM 1.8 mg/dL (1.5-2.7); PHOSPHORUS 3.5 mg/dL (2.7-4.5)
[2018-11-03 07:56] LABS: CALCIUM 8.3 mg/dL (8.8-10.2); CREATININE 1.3 mg/dL (0.5-0.9); POTASSIUM 3.8 mmol/L (3.5-5.1)
[2018-11-03] MEDS: PROTONIX IV SCH (08:05)
[2018-11-03 11:03] VITALS: BP 151/96
--- NOTE | 2018-11-03 11:29 | PROVIDER PROGRESS NOTE ---
Progress Note - - SUBJECTIVE: No acute overnight events. Patient reports one episode of NBNB emesis overnight, but has been tolerating full liquid diet. She continues to have mild to moderate diffuse abdominal discomfort. No rectal bleeding, melena, fever, CP, or SOB. +odynophagia. OBJECTIVE: Last Vital Signs Temp 97.7 F 11/03/18 11:01 Pulse 89 11/03/18 11:01 Resp 16 11/03/18 11:01 BP 151/96 11/03/18 11:01 Pulse Ox 100 11/03/18 11:01 Height 5 ft 3 in Weight 156 lb GEN: awake, alert, NAD HEENT: anicteric, MMM NECK: no JVD, LAD CARDIAC: RRR, no murmurs PULM: CTAB ABD: soft, ND, mild diffuse TTP throughout without rebound or guarding, BS present EXT: no cce NEURO: nonfocal LABS: 11/03/18 11/03/18 06:30 06:30 WBC 3.86 L Hgb 10.2 L MCV 79.9 L Plt Count 380 Sodium 142 Potassium 3.8 Chloride 115 H Carbon Dioxide 18 L Anion Gap 9 BUN 6 L Creatinine 1.3 H A/P: Ms. Kaleigh Bobby is a 43-year-old woman with a history of type 2 diabetes complicated by gastroparesis requiring gastric pacemaker, GERD and recent diagnosis of LA grade D esophagitis, esophageal stricture, and peptic ulcer disease, who presents with recurrent intractable nausea and vomiting, and abdominal pain. Her nausea and vomiting are secondary to known esophageal and PUD pathology that has bee untreated since discharge. She has been noncompliant with PPI therapy. Again, we discussed the importance of acid suppressive therapy for healing of her erosive esophagitis and PUD. She is at high risk of esophageal perforation if were to perform dilation now given degree of inflammation on last EGD. #N/V: 2/2 esophagitis, stricture, and PUD: improved; tolerating full liquids: continue PPI PO BID, start carafate liquid QID, antiemetics as needed #Esophageal stricture: will need repeat EGD with dilation in 4-5 weeks, continue full liquid diet; dysphagia precautions #PUD: PPI as above; will check for healing on next EGD; avoiding ASA/NSAIDs #Gastroparesis: on SSI; small frequent low fat meals, antiemetics as above #Anemia: 2/2 to known PUD; microcytic; no overt bleeding currently #Med Noncompliance: discussed importance of PPI therapy and risks of complications of untreated stricture/PUD Patient is okay for discharge from GI perspective. Will need GI follow-up in 1- 2 weeks and EGD in 4-5 weeks. Will sign off. Please call with questions or concerns.
== END 2018-11-03 14:20 | disposition home or self-care (01) | DRG 384 ==
LOC: ED 15:22 → EDIPHOLD 22:21 → SUATTDRO 22:21 → 4N 11-02 03:41
PROVIDERS: ATTEND Internal Medicine
CPT/HCPCS: 80048; 80053; 82948; 83036; 83605; 83735; 84100; 85025; 85027; 96361; 96365; 96366; 96375; 96376; 99285; A9270; C9113; J2175; J2550; J3480; J7030; S0164; XXXXX

== ENCOUNTER 2018-11-13 12:57 | Inpatient (IN) ==
[2018-11-13 14:08] LABS: BASO# 0.02 X1000 (0.0-0.2); BASO% 0.3 % (0.0-0.8); EOS# 0.01 X1000 (0.0-0.7); EOS% 0.1 % (0.0-10.0); HEMOGLOBIN 14.2 g/dL (12.0-16.0); LYMPH# 1.38 X1000 (1.2-3.4); LYMPH% 19.3 % (20.5-51.1); MCH 25.7 PG (27-31); MCHC 33.8 g/dL (33-37); MCV 76.1 FL (81-99); MONO# 0.23 X1000 (0.11-0.59); MONO% 3.2 % (1.7-9.3); MPV 12.6 FL (7.4-10.4); NEUT# 5.51 X1000 (1.4-6.5); NEUT% 77.1 % (42.2-75.2); PLT 446 X1000 (130-400); RBC 5.52 XMIL (4.2-5.4); RDW 17.1 % (11.5-14.5); WBC 7.15 X1000 (4.8-10.8)
[2018-11-13 14:33] LABS: ALB/GLOB RATIO 1.1; ALBUMIN 4.6 g/dL (3.5-5.0); CALCIUM 9.3 mg/dL (8.8-10.2); CREATININE 2.5 mg/dL (0.5-0.9); POTASSIUM 3.1 mmol/L (3.5-5.1); TOTAL BILIRUBIN 0.59 mg/dL (0.20-1.00); TOTAL PROTEIN 8.8 g/dL (6.3-8.3)
[2018-11-13] MEDS ORDERED: SODIUM CHLORIDE 0.9% INJ ONE (15:57)
[2018-11-13] MEDS ORDERED: PHENERGAN IV ONE (15:57)
[2018-11-13] MEDS ORDERED: NS 1,000 ML IV ONE (15:57)
[2018-11-13 16:23] LABS: ALLEN TEST YES; BE -13.6 mmoll (-3.0-3.0); BLOOD TYPE ARTERIAL; HCO3-(ACT) 14.3 mmoll (20.0-26.0); METHB 1.2 % (0.0-1.5); O2(CT) 18.7 mL/dL (15.0-23.0); O2HB 96.3 % (95.0-99.0); PCO2(98.6) 24 mmHg (35-45); PO2(98.6) 104 mmHg (60-100); SAMPLE BLOOD; SAO2 98.9 % (95.0-100.0); THB 13.7 g/dL (11.5-17.4); pH(98.6) 7.28 (7.35-7.45)
[2018-11-13 16:25] LABS: MODALITY ROOM AIR
[2018-11-13] MEDS ORDERED: PHENERGAN ONE (17:08)
[2018-11-13] MEDS ORDERED: NS 1,000 ML ONE (17:09)
[2018-11-13 18:24] LABS: URINE SOURCE CATH
[2018-11-13 18:28] LABS: BILIRUBIN URINE SMALL (NEGATIVE); BLOOD URINE NEGATIVE (NEGATIVE); COLOR YELLOW; GLUCOSE URINE TRACE mg/dL (NEGATIVE); KETONE URINE TRACE mg/dL (NEGATIVE); LEUKOCYTES URINE NEGATIVE (NEGATIVE); NITRITE URINE NEGATIVE (NEGATIVE); PROTEIN URINE 600 mg/dL (NEGATIVE); SP GRAVITY URINE 1.026; TURBIDITY URINE CLEAR (CLEAR); UROBILINOGEN URINE 2 mg/dL (NORMAL)
[2018-11-13 18:29] LABS: UR EPITHELIAL CELLS <10 /HPF (<10); URINE BACTERIA NEGATIVE /HPF; URINE RBC <10 /HPF (<10); URINE WBC <10 /HPF (<10)
--- NOTE | 2018-11-13 19:55 | PROVIDER DOCUMENTATION ---
This chart was entered by Kylah Santoro Scribe, acting as scribe for Abdi Zavala CRNP. HPI-Abdominal Pain/GI Problem - General Chief Complaint: Abdominal Pain Stated Complaint: WEAK Time Seen by Provider: 11/13/18 15:43 Source: patient, family (son and mother at bedside) Allergies/Adverse Reactions: Patient Allergies Allergy/AdvReac Type Severity Reaction Status Date / Time No Known Allergies Allergy Verified 11/01/18 17:49 Home Medications: Home Medication List Medication Instructions Recorded Confirmed Last Taken Type Zolpidem [Ambien] 10 mg PO QHS #20 tab 10/17/18 11/01/18 1 Day Ago Rx ~10/31/18 Ondansetron [Zofran] 4 mg PO Q6H PRN PRN #30 tab 11/03/18 Unknown Rx Pantoprazole [Protonix] 40 mg PO BID #60 tab 11/03/18 Unknown Rx Promethazine [Phenergan] 25 mg PO Q6H PRN PRN #30 tablet 11/03/18 Unknown Rx Sucralfate [Carafate Liquid] 1 gm PO Q6HR #14 oz 11/03/18 Unknown Rx Zolpidem Tartrate [Ambien] 10 mg PO QHS #30 tablet 11/03/18 Unknown Rx - History of Present Illness-ABD Nature of Presenting Problems: 43 yobf presents to the ed with c/o abdominal pain with "spitting up" and not being able to eat for 5 days. pt on exam is ill appearing and thin on exam Abdominal Pain Onset Location: reports: generalized abdomen Quality of Pain: reports: aching Severity in ED: reports: moderate Onset/Duration: reports: 5 days ago Timing: reports: still present Activities at Onset: reports: light activity Exposure to sick contacts?: No Modifying Factors: improves with: nothing Associated Symptoms: reports: fatigue, loss of appetite, malaise, nausea, weakness. denies: back/neck pain, chest pain, cough, diarrhea, shortness of breath Last BM: unsure Dark Stools Present?: reports: none noticed Rectal Bleeding: reports: none # of Diarrhea Episodes: 0 Rectal Pain: reports: none # of Vomiting Episodes: 0 (pt is spitting up but not vomiting) Emesis Description: reports: clear (bubbly) Bruising or Bleeding Gums?: No Similar Symptoms Previously?: Yes Recently seen or treated by another doctor?: No Review of Systems - Adult - REVIEW OF SYSTEMS - ADULT Constitutional: denies: chills, fever Eyes: reports: no symptoms reported Ears, Nose, Mouth & Throat: reports: no symptoms reported Cardiovascular: denies: chest pain, palpitations Respiratory: denies: cough, shortness of breath, wheezing Gastrointestinal: reports: see HPI, abdominal pain, nausea, poor appetite. denies: vomiting Genitourinary: reports: no symptoms reported Musculoskeletal: denies: back pain, neck pain Integumentary: reports: no symptoms reported Neurological: denies: dizziness/vertigo, headache/migraines Psychiatric: reports: no symptoms reported Endocrine: reports: no symptoms reported Hematologic/Lymphatic: reports: no symptoms reported Allergic/Immunologic: reports: no symptoms reported All Other Systems: Reviewed and Negative Past History - Adult - PAST MEDICAL HISTORY-ADULT Review of Records: reports: Old Records Reviewed, Nursing Assessment Review, Medications Reviewed, Social history reviewed & non-contributory. Major Childhood Illnesses: reports: denies history Cardiovascular: reports: HTN, hyperlipidemia Respiratory: reports: denies history Gastrointestinal: reports: GERD (with esophagitis and stenosis), GI bleed, ulcer , other (diabetic gastroparesis, erosive gastritis and esophagitis; gastric pacemaker) Obstetrical/Gynecological: reports: denies history Genitourinary: reports: kidney disease, other (ammenorrhea for 1 year) Musculoskeletal: reports: denies history Neurological: reports: other (DM neuropathy) Psychiatric: reports: anxiety, depression Endocrine/Immune: reports: anemia, Diabetes Diabetes Type: Type 2 Other Conditions: reports: denies history Additional History: frequent ER visits - PRIOR SURGERIES/PROCEDURES Surgical/Procedure History: reports: cholecystectomy, indwelling device ( Portacath), other (gastric stimulator) - IMMUNIZATION STATUS Childhood Immunizations: See Nurse Assessment Flu Vaccine: See Nurse Assessment - FAMILY HISTORY Family History: reviewed, not pertinent - SOCIAL HISTORY Smoking: denies Substance Use: alcohol Alcohol Use Frequency: occasionally Number of drinks per typical drinking period:: 3-4 drinks Living Situation: family Physical Exam-General - PHYSICAL EXAM-ADULT Initial Vital Signs Reviewed: Yes - CONSTITUTIONAL General Appearance: alert, mild distress, thin. negative: appears well - EYES Eyes: PERRL/EOMI, pale conjunctivae - HEAD, EARS, NOSE, MOUTH & THROAT HENMT: normocephalic/atraumatic. negative: moist mucous membranes - NECK Neck: full range of motion, normal inspection - RESPIRATORY Respiratory: chest non-tender, lungs clear, normal breath sounds - CARDIOVASCULAR Cardiovascular: normal peripheral pulses, tachycardia (110) - GASTROINTESTINAL (ABDOMEN) Abdominal Exam: soft, abnormal bowel sounds (hypoactive), other (has gastric pacemaker well healed scar) - LYMPHATIC Lymphatic: no adenopathy - MUSCULOSKELETAL Back Exam: normal inspection, no CVA tenderness, no vertebral tenderness Extremity: normal range of motion, non-tender, normal inspection, no pedal edema , no calf tenderness, normal capillary refill, pelvis stable - SKIN Integumentary: normal color, warm/dry - NEUROLOGIC Neurologic: grossly normal - PSYCHIATRIC Psych/Mental Status: normal mood/affect, normal thought content, normal thought process, oriented x 3 Progress - PLAN OF CARE/RESULTS Progress/Plan/Lab Results: Vital Signs - 8 hr 11/13/18 13:06 Temperature 97.5 F L Pulse Rate 110 H Respiratory Rate 18 Blood Pressure 119/95 O2 Sat by Pulse Oximetry 100 Laboratory Results - last 24 hr 11/13/18 11/13/18 13:50 13:50 WBC 7.15 RBC 5.52 H Hgb 14.2 Hct 42.0 MCV 76.1 L MCH 25.7 L MCHC 33.8 RDW Std Deviation 17.1 H Plt Count 446 H MPV 12.6 H Immature Gran % (Auto) 0.0 Neut % (Auto) 77.1 H Lymph % (Auto) 19.3 L [place] % (Auto) 3.2 Eos % (Auto) 0.1 Baso % (Auto) 0.3 Immature Gran # (Auto) 0.00 Neut # (Auto) 5.51 Lymph # (Auto) 1.38 [place] # (Auto) 0.23 Eos # (Auto) 0.01 Baso # (Auto) 0.02 Sodium 146 H Potassium 3.1 L Chloride 108 H Carbon Dioxide 13 L Anion Gap 25 BUN 17 Creatinine 2.5 H Estimated GFR/1.73 m2 25 BUN/Creatinine Ratio 7 Glucose 204 H Calculated Osmolality 298 Calcium 9.3 Total Bilirubin 0.59 AST 16 ALT 10 Alkaline Phosphatase 202 H Total Protein 8.8 H Albumin 4.6 Globulin 4.2 Albumin/Globulin Ratio 1.1 Amylase 115 Lipase 26 Orders Category Date Time Status Saline Loc DIRECTED Care 11/13/18 13:53 Active NPO Diet 11/13/18 13:53 Active AMYLASE [CHEM] Stat Lab 11/13/18 13:50 Completed CBC WITH ELECTRONIC DIFF [HEME] Stat Lab 11/13/18 13:50 Completed COMPREHENSIVE METABOLIC PANEL [CHEM] Stat Lab 11/13/18 13:50 Completed LIPASE [CHEM] Stat Lab 11/13/18 13:50 Completed TEST-URINE [PREG] Stat Lab 11/13/18 13:53 Uncollected URINALYSIS W/POSS RFLX CULT [URINALYSIS] Stat Lab 11/13/18 13:53 Uncollected Result Diagrams: 11/13/18 13:50 11/13/18 13:50 - REASSESSMENT Reassessment #1 Time Reassessed: 15:58 Status: unchanged Reassessment Comment: pt is spitting up in emesis bag Reassessment #2 Time Reassessed: 16:45 (RN made aware of need for UA) Reassessment #3 Time Reassessed: 18:25 (pt resting. Pt still vomiting/spitting, but reports it has eased. ) - CONSULTS/PCP/HOSPITALIST Notification #1 *Consult/PCP/Hospitalist*: Dr Gregory, hospitalist Time Discussed: 19:27 Consult Disposition: Admit Departure - Departure Date of Disposition Decision: 11/13/18 Time of Disposition Decision: 19:27 DIAGNOSIS: Dehydration, Gastroparesis Intractable vomiting Qualifiers: Vomiting type: cyclical vomiting Nausea presence: with nausea Qualified Code(s) : G43.A1 - Cyclical vomiting, intractable Disposition: ADMITTED INPATIENT 09 Certified Medical Emergency: Emergent Condition: Fair Referrals and Follow-Ups: None,PCP [Primary Care Provider] - - Critical Care Note This patient required my direct & personal management of CC.: No Attestation - Physician/ GAUDENCIO Attestation Patient care was provided by Advanced Practice Provider:: Yes Advanced Practice Provider:: Abdi Zavala Advanced Practice Provider documentation review:: The Mid-level provider documentation, treatment plan and medical decision making was reviewed by the physician who agrees with all treatment and medical decision making by the [facility]. The physician spent face to face time with patient:: No Advanced Practice Provider documentation review:: Supervising physician onsite and consulted in the evaluation and care of this patient. The physician did not have a face to face encounter with the patient. This chart was documented by the indicated scribe, (Kylah Santoro Scribe) and accurately reflects the services I performed and decisions made by , Abdi Zavala CRNP, as attested by the provider's signature.
[2018-11-13] MEDS ORDERED: MORPHINE IV ONE (20:22)
[2018-11-13] MEDS ORDERED: ZOFRAN IV ONE (20:22)
[2018-11-13 23:42] LABS: CALCIUM 9.2 mg/dL (8.8-10.2); CREATININE 2.6 mg/dL (0.5-0.9); POTASSIUM 3.4 mmol/L (3.5-5.1)
[2018-11-13] MEDS ORDERED: TYLENOL PO PRN (23:44)
--- NOTE | 2018-11-14 00:09 | HISTORY AND PHYSICAL ---
CHIEF COMPLAINT: nausea, vomiting, abdominal discomfort. This is a 43-year-old female with diabetic gastroparesis, chronic pain. She reports abdominal pain and spitting up, not being able to eat for 5 days. In any case, the patient was evaluated in the ER. I saw her later in the evening. I think she came around early afternoon. In any case she looks better. Her labs do reveal possibly some early DKA. Additionally, she has some acute kidney injury, which is a change from baseline for her. She has some degree of acidosis, at this point it is not felt to be diabetic ketoacidosis. She has history of chronic nausea, vomiting. She has been evaluated for gastroparesis previously and has a gastric pacemaker in place. Workup in the ER as described she was admitted for intractable nausea, vomiting, acute kidney injury. PAST MEDICAL HISTORY: 1. Type 2 diabetes but she is non-insulin dependent and does not look like she is on any medications. The last time I checked her A1c was 6.7 that was last admission not me but the last time it was checked. 2. Gastroparesis. 3. Acute on chronic renal failure. 4. Hypertension. 5. Esophageal stricture. PAST SURGICAL HISTORY: 1. Again she had a gastric pacemaker, cholecystectomy. 2. Port-A-Cath placement. 3. Feeding tube. SOCIAL HISTORY: History of marijuana but none currently. ALLERGIES: No known drug allergies. FAMILY HISTORY: Diabetes in mother. According to medications she is on Ambien, sucralfate, Zofran, Protonix and Phenergan. She is not on any insulin or diabetic medications. Now last time she was here she had fairly significant gastric ulcer and duodenal ulcer. REVIEW OF SYSTEMS: Otherwise negative times a 10 point review of systems. PHYSICAL EXAM: Blood pressure is 123/91, heart rate 99, respiratory rate 13, temperature was 97.7 degrees. GENERAL: A well-developed female in no acute distress. HEENT: Head was normocephalic, atraumatic. Pupils equal, round, reactive to light, extraocular movements were intact. She had moist mucous membranes. Sclerae are anicteric. NECK: Supple. CARDIOVASCULAR: Regular rate and rhythm. No murmurs, gallops, or rubs. PULMONARY: Bilateral breath sounds, clear to auscultation. GI: Was soft, nontender, nondistended. Bowel sounds were diminished throughout. NEURO: Cranial nerves 2-12 were grossly intact. MUSCULOSKELETAL: 4/5 in all 4 extremities. LABORATORY DATA: Her white count is 7, hemoglobin and hematocrit 14 and 42, platelets 446,000, pH 7.28, lactate normal. Sodium 146, potassium 3.1, creatinine up to 2.5, sugar of 204, 258. Urine was negative. Acetone was negative. PROBLEM LIST: This is a 43-year-old female with diabetic presumed gastroparesis. 1. Diabetic gastroparesis. We will initiate Reglan and follow. She had a recent large duodenal ulcer so will maintain her on Protonix and repeat GI consult. 2. Acute kidney injury is likely related to dehydration. Continue fluids, urine electrolytes, renal ultrasound and monitor. 3. Diabetes. Now per previous levels it has been under pretty good control but she looked like she had anion gap metabolic acidosis this time we will repeat her labs and then check them again in the morning and follow closely. We will get plain films to rule out any acute pathology. cc: Jermain Gregory MD
[2018-11-14] MEDS: NS 1,000 ML IV SCH ×4 (00:13→23:20)
[2018-11-14] MEDS: LOVENOX SUBQ SCH ×3 (00:14→21:28)
[2018-11-14] MEDS: ZOFRAN IV PRN ×6 (00:14→23:19)
[2018-11-14] MEDS: PROTONIX IV SCH ×3 (00:14→23:20)
[2018-11-14] MEDS: NUBAIN IV PRN ×6 (00:14→23:19)
[2018-11-14] MEDS: CARAFATE LIQUID PO SCH ×4 (01:53→21:27)
--- NOTE | 2018-11-14 07:24 | Diag Imaging Result Doc PS360 ---
EXAM: ABDOMEN FLAT/UPRIGHT 11/13/2018 HISTORY: n/v TECHNIQUE: Flat and upright abdomen COMMENT: The bowel gas pattern is unremarkable. There has been previous cholecystectomy. There is no evidence for organomegaly or mass. There is a intrauterine device which has not changed its orientation since 10/14/2018. There is less stool in the distal colon than on the previous study. IMPRESSION: Nonspecific abdomen. Electronically signed by Napoleon Bearden 11/14/2018 7:21 AM
[2018-11-14 07:37] LABS: BASO# 0.01 X1000 (0.0-0.2); BASO% 0.1 % (0.0-0.8); EOS# 0.02 X1000 (0.0-0.7); EOS% 0.2 % (0.0-10.0); HEMATOCRIT 33.1 % (37.0-47.0); HEMOGLOBIN 11.2 g/dL (12.0-16.0); LYMPH# 2.08 X1000 (1.2-3.4); LYMPH% 20.5 % (20.5-51.1); MCH 26.2 PG (27-31); MCHC 33.8 g/dL (33-37); MCV 77.3 FL (81-99); MONO# 0.63 X1000 (0.11-0.59); MONO% 6.2 % (1.7-9.3); MPV 12.4 FL (7.4-10.4); NEUT# 7.42 X1000 (1.4-6.5); PLT 323 X1000 (130-400); RBC 4.28 XMIL (4.2-5.4); RDW 16.9 % (11.5-14.5); WBC 10.16 X1000 (4.8-10.8)
[2018-11-14 07:46] LABS: ALB/GLOB RATIO 1.2; ALBUMIN 3.8 g/dL (3.5-5.0); CALCIUM 8.5 mg/dL (8.8-10.2); CREATININE 2.1 mg/dL (0.5-0.9); TOTAL BILIRUBIN 0.42 mg/dL (0.20-1.00); TOTAL PROTEIN 7.1 g/dL (6.3-8.3)
--- NOTE | 2018-11-14 09:11 | Diag Imaging Result Doc PS360 ---
EXAM: ABDOMEN FLAT/UPRIGHT HISTORY: n/v TECHNIQUE: Flat and upright, two views COMPARISON: 11/13/2018 FINDINGS: No free air beneath the diaphragm. The gallbladder has been removed. There is a contraceptive device in the uterus which is unchanged. No bowel obstruction. No organomegaly. There are several pelvic phleboliths. IMPRESSION: Stable exam. Electronically signed by Hebert Soto 11/14/2018 9:08 AM
[2018-11-14] MEDS: POTASSIUM CHLORIDE 20 MEQ/SWI 20 MEQ/100 ML IVPB IV SCH ×2 (11:18→13:45)
--- NOTE | 2018-11-14 12:16 | PROGRESS NOTE ---
DATE: 11/14/2018 SUBJECTIVE: Patient reports still feeling nauseated, but better in comparing with yesterday. OBJECTIVE: Vital Signs: Temperature 97.8 degrees, heart rate 86, respiratory rate 20, blood pressure 126/79, O2 saturation 100% on room air. General Examination: This is a chronically ill- looking, 43-year-old female, lying in bed in no acute distress. Cardiovascular exam: S1, S2 heard. No murmurs, gallops, or rubs. Regular rate and rhythm. Respiratory exam: Clear bilaterally to auscultation. No work of breathing or using accessory muscles. Abdomen: Soft, nontender to palpation. Nondistended. Bowel sounds present, but diminished. No organomegaly noted. Extremities: No clubbing,cyanosis or edema. Peripheral pulses present in both legs. Neurological examination: Patient alert and oriented x3. Moves 4 extremities. LABORATORY DATA: CBC unremarkable. BMP shows potassium 3.0 with creatinine 2.1. ASSESSMENT AND PLAN: 1. Recurrent nausea and vomiting. Even though we have admitted this patient to the hospital many times for nausea and vomiting secondary to diabetic gastroparesis, Gastroenterology thinks that this could be secondary to recurring gastroesophageal strictures that she had. She has been scoped and dilated twice in the emergency room already. Gastroenterology, Dr. Cano, has recommended placing Venting PEG tube, but because this patient has already an appointment for this Monday at [facility] where they placed the gastric pacemaker, I think at this point our plan will be to continue with intravenous hydration. If she is better tomorrow and tolerates diabetic diet she can be discharged. Will keep checking BMP. 2. Diabetes mellitus type 2. We will continue with sliding scale insulin. Accu -Chek before meals and also at bedtime. 3. Acute kidney injury secondary to dehydration,getting better. We will continue with intravenous fluids. 4. Disposition: The patient is feeling better. I think tomorrow she can be discharged. Diabetic diet as we mentioned before has been started on this patient. We will see how she does. cc: MD SYDNEE Avila
[2018-11-14] MEDS: SODIUM CHLORIDE 0.9% INJ SCH ×2 (12:40→23:20)
[2018-11-14] MEDS: AMBIEN PO SCH (21:27)
[2018-11-15] MEDS: CARAFATE LIQUID PO SCH ×4 (02:11→21:34)
--- NOTE | 2018-11-15 02:29 | GASTROENTEROLOGY CONSULTATION ---
DATE: 11/14/2018 REASON FOR CONSULTATION: Intractable nausea and vomiting. HISTORY OF PRESENT ILLNESS: Ms. Kaleigh Bobby is a 43-year-old woman with a past medical history significant for insulin-dependent diabetes complicated by gastroparesis requiring gastric pacemaker placement, GERD with LA grade D esophagitis, severe esophageal stricture, gastric and duodenal ulcers, who represents with recurrent nausea and vomiting, and inability to tolerate p.o. intake for the last 4 days. The patient was recently hospitalized twice in October with the same symptoms. She was discharged on 11/03 on PPI and Carafate with plan to return as an outpatient for repeat EGD and dilation of her esophageal stricture. She underwent EGD as an outpatient by Dr. Haq, who was unable to pass the upper endoscope through her esophagus given esophageal narrowing. She currently is tolerating clear liquid diet. She denies any dysphagia to liquids currently. No abdominal pain, hematemesis, melena, hematochezia. She remains compliant with PPI and Carafate, and avoiding NSAIDs. She reports that she is scheduled to have any EGD on 11/16/2018, for dilatation of her known esophageal stricture at [facility]. REVIEW OF SYSTEMS: As per HPI. Otherwise, 12 point review of systems is negative. PAST MEDICAL HISTORY: Insulin-dependent diabetes, gastroparesis, status post pacemaker, hypertension, diabetic neuropathy, history of esophageal stricture, esophagitis, gastritis, GERD, gastric ulcers, duodenal ulcers. PAST SURGICAL HISTORY: Cholecystectomy, prior feeding tube placement, gastric pacemaker, Port-A- Cath. SOCIAL HISTORY: She is a former smoker. Denies any alcohol, although she does smoke marijuana. No drug use otherwise. ALLERGIES: No known drug allergies. MEDICATIONS: Insulin, Norvasc, pantoprazole, sucralfate, Phenergan, Zofran, Ambien. FAMILY HISTORY: No family history of GI malignancies or esophageal disorders. PHYSICAL EXAMINATION: Vital signs: Temperature 97.3 degrees, heart rate 108, respiratory rate 20, blood pressure 121/84, O2 saturation 100% on room air. General: Patient is awake, alert, oriented, no acute distress. HEENT: Sclerae anicteric. Moist mucous membranes. Neck: Supple. No JVD. Lungs: Clear to auscultation bilaterally. Cardiac: Tachycardic, regular. No murmurs. Abdomen: Surgical scars, soft, nontender, nondistended. Normoactive bowel sounds. No rebound or guarding. Extremities: No clubbing, cyanosis, or edema. Neurologic: Nonfocal. LABS: White count is 7.1, hemoglobin 14.2, platelets 446,000. ABG with pH of 7.28, pCO2 of 24, PO2 of 104. Sodium 147, potassium 3.4, chloride 109, bicarb 13, BUN 21, creatinine 2.6. AST 16, ALT of 10, T bilirubin 0.59, alkaline phosphatase 202, total protein is 8.8, albumin 4.6, lipase 26. Urinalysis negative for infection. IMAGING: KUB unremarkable. ASSESSMENT AND PLAN: 1. Ms. Kaleigh Bobby is a 43-year-old woman with a past medical history of insulin-dependent diabetes complicated by gastroparesis and requiring gastric pacemaker, and recent hospitalizations for intractable nausea, vomiting. She had EGD in early October that revealed LA grade D esophagitis, a long esophageal stricture, peptic ulcer disease. This is secondary to nonsteroidal anti-inflammatory use. She was unable to have esophageal dilation as an outpatient recently given the degree of esophageal narrowing. She is scheduled for outpatient esophageal dilation at [facility] this Monday. Notable findings on this admission include metabolic acidosis, acute kidney injury, volume depletion, hemoconcentration, and hypernatremia. This is all likely secondary to nausea, vomiting, which improved with fluid resuscitation. She is currently tolerating oral liquids without vomiting. I agree with continue taking proton pump inhibitor therapy BID and Carafate q.i.d., antiemetics as needed, IV fluids for her nausea and vomiting. 2. For her esophageal stricture, she will need EGD with dilation, likely at a tertiary care center were advanced endoscopic procedures can be done. Once she is stable from a hemodynamic and metabolic standpoint, she can be discharged on a full liquid diet with plans for dilation on Monday. For peptic ulcer disease, she is on proton pump inhibitor and carafate, avoiding nonsteroidal anti- inflammatories. No overt bleeding at this time. 3. Gastroparesis. She is on sliding scale insulin. Recommend small frequent low-fat males. 4. Anemia secondary to known peptic ulcer disease and esophagitis. Management as above. 5. Insulin-dependent diabetes. Again, continue sliding scale insulin. Thank you for this consult. We will follow with you. Please call with any questions or concerns. SYDNEE
[2018-11-15] MEDS: ZOFRAN IV PRN ×3 (03:40→12:45)
[2018-11-15] MEDS: NUBAIN IV PRN ×5 (03:40→21:34)
[2018-11-15] MEDS: NS 1,000 ML IV SCH ×2 (10:21→16:03)
[2018-11-15] MEDS: DULCOLAX PR SCH ×2 (10:50→21:33)
[2018-11-15] MEDS: PROTONIX IV SCH ×2 (12:45→21:35)
[2018-11-15] MEDS: SODIUM CHLORIDE 0.9% INJ SCH ×2 (12:45→21:35)
[2018-11-15] MEDS: PHENERGAN IV PRN (17:40)
--- NOTE | 2018-11-15 17:57 | PROGRESS NOTE ---
DATE: 11/15/2018 INTERVAL HISTORY: Initially I was paged that the patient wanted to go home so that she can get done with her procedure tomorrow. I evaluated the patient later during the day. At that time, she tells me that she would like to be here overnight as she does not have any ride at the moment and she would like to leave the hospital early tomorrow morning for the procedure, where she is supposed to get esophageal dilatation at [facility] tomorrow. She is also requesting me to start her on Phenergan and change her pain medication. SUBJECTIVE: She is feeling better. She has not had any more vomiting episodes. She has been able to tolerate a clear liquid diet. She continues to have dysphagia and she is spitting up clear sputum. PHYSICAL EXAMINATION: Vital Signs: Temperature of 97.9 degrees, pulse 87, respiratory rate 16, blood pressure 116/78, saturating 100% on room air. General: Patient is frequently spitting clear mucus during the examination. HEENT: Oral cavity is moist with saliva. Cardiovascular: S1, S2 normal. No murmur, rub, or gallop.. Respiratory: Air entry bilaterally equal. No wheeze, rhonchi, crackles. Abdomen: Soft. Mildly tender in the epigastric region. Active bowel sounds. Extremities: No lower extremity edema. LABS: No new labs today. Repeat BMP has been ordered. ASSESSMENT AND PLAN: 1. Recurrent intractable nausea and vomiting in the setting of recurrent esophageal stricture with gastroparesis and prior history of for pacemaker now. GI on board and believes that the patient would likely benefit from surgical procedure to open up esophageal stricture at a tertiary care hospital, for which patient has a scheduled appointment on November 16. Continue patient on intravenous Protonix and p.r.n. promethazine until then. GI was also of opinion that she may need venting gastrostomy in future. 2. History of peptic ulcer disease. Continue pantoprazole and sucralfate. 3. History of diabetes mellitus type 2. However, she is not listed to be taking any medications. Her hemoglobin A1c was 6.9% on October 2018. On presentation, however, she did have hyperglycemia, elevated anion gap, and low bicarbonate with acidosis which was of unclear etiology. I will follow up with BMP to make sure her electrolytes are within normal limits. 4. Acute kidney injury because of volume depletion on admission, now improving. Follow up with BMP. 5.Hypokalemia, hyperchloremia due to IV fluid resuscitation and vomiting on presentation. I am repleting her potassium. Outpatient BMP slip would be provided. 5. Disposition. The patient states that she does not have a ride anymore and she would like to go [facility] tomorrow. So the plan is to keep her overnight, continue the pain management, and discharge her early tomorrow morning. All of her questions have been answered. She should go to [facility] after discharge for getting her outpatient procedure done, where she is supposed to get EGD, dilatation of esophagus. cc: Clay Still MD MTDNyasia
[2018-11-15 18:33] LABS: CALCIUM 7.3 mg/dL (8.8-10.2); CREATININE 1.8 mg/dL (0.5-0.9); POTASSIUM 3.3 mmol/L (3.5-5.1)
[2018-11-15] MEDS: LOVENOX SUBQ SCH (21:34)
[2018-11-15] MEDS: AMBIEN PO SCH (21:35)
[2018-11-15] MEDS: SODIUM CHLORIDE 0.9% INJ PRN (21:35)
[2018-11-16] MEDS: PHENERGAN IV PRN ×2 (03:29→07:27)
[2018-11-16] MEDS: NUBAIN IV PRN ×2 (03:29→07:24)
[2018-11-16] MEDS: SODIUM CHLORIDE 0.9% INJ PRN (03:29)
--- NOTE | 2018-11-16 03:56 | GASTROENTEROLOGY PROGRESS NOTE ---
DATE: 11/15/2018 SUBJECTIVE: The patient is resting in bed. She is feeling better. She denies any nausea or vomiting. She denies any vomiting blood. She complains of abdominal pain in the epigastric region. She has not moved her bowels since admission. OBJECTIVE: Vital Signs: Temperature of 98, pulse rate of 72, respiratory rate of 16, blood pressure 140/84, saturating 100% on room air. Body weight of 138 pounds 2 ounces. General Appearance: Moderately built, moderately nourished, lying in bed, in no acute distress. HEENT: Mild pallor. No icterus. Pupils equal, reactive to light. Neck: Supple. Abdomen: Soft, nontender, nondistended. No guarding or rebound. Extremities: No cyanosis, clubbing. Neurologic: She is alert, awake, and oriented x3. LABS: Her hemoglobin and hematocrit are 11.2 and 33.1, white count of 10.16, platelet count of 323,000. Sodium of 141, potassium of 3, chloride 108, bicarb of 79, anion gap of 16, BUN of 20, creatinine 2.1, glucose of 131, calcium is 8.5. Total bilirubin is 0.42, AST 13, ALT 7, alkaline phosphatase 152, total protein 7.1, albumin of 3.8, lipase of 26, amylase of 115. Urinalysis showing positive protein, trace ketones, small bilirubin. Acetone level is negative. IMPRESSION AND PLAN: 1. Esophageal stricture from severe grade 4 esophagitis. She has an appointment at [facility] for an esophagogastroduodenoscopy with dilation under fluoroscopy tomorrow. She could be a potential candidate for esophageal stent placement as she has a long stricture. 2. Severe esophagitis. She will continue on Protonix twice daily and Carafate 1 g every 6 hours. 3. Malnutrition. She will continue Glucerna 1 can 4 times daily. I encouraged her to be on a pureed diet to meet the calorie demands and continue drinking plenty of water. 4. Gastroparesis. She is on small, frequent meals. She will continue to keep a good control of diabetes. 5. Anemia. She will continue to watch for now. Once she will able to start tolerating pills, we will start her on iron supplementation. 6. Insulin-dependent diabetes. Again, she is on sliding scale insulin. 7. Dehydration, is improved. 8. Deep venous thrombosis prophylaxis with Lovenox. 9. We will start her on a bowel regimen with Dulcolax. 10. The above plans were discussed with the patient and all questions were answered. Please call us with any questions. cc: MD Dr. Cheko Villa
[2018-11-16 04:11] VITALS: BP 123/83
[2018-11-16] MEDS: CARAFATE LIQUID PO SCH (04:29)
[2018-11-16] MEDS: POTASSIUM CHLORIDE 20 MEQ/SWI 20 MEQ/100 ML IVPB IV SCH ×2 (04:30→06:04)
--- NOTE | 2018-11-17 06:44 | DISCHARGE SUMMARY ---
ADMISSION DATE: 11/13/2018 DISCHARGE DATE: 11/16/2018 DISCHARGE DIAGNOSES: 1. Intractable nausea and vomiting. 2. Esophageal dysphagia. 3. Hypokalemia. 4. Acute kidney injury on chronic kidney disease stage 3. 5. Metabolic acidosis due to acute kidney injury. 6. Hyperglycemia with elevated anion gap with low bicarbonate of uncertain etiology. OTHER DIAGNOSES: 1. Anemia due to chronic blood loss due to a known peptic ulcer disease and esophagitis. 2. History of diabetes mellitus type 2. 3. History of gastroparesis, status post gastric pacemaker. 4. History of chronic kidney disease stage 3. 5. History of recurrent nausea and vomiting related to esophageal strictures requiring multiple dilatations about 4 times since 2012. CONSULTATION DURING HOSPITALIZATION: Gastroenterology, Dr. Charles Cano. PROCEDURES DURING HOSPITALIZATION: None. DISCHARGE DISPOSITION: Home, and from there she is going to [facility] for getting endoscopic esophageal dilatation. DISCHARGE MEDICATIONS: 1. Zolpidem 10 mg at nighttime. 2. Sucralfate 1 g p.o. q.6 hours. 3. Promethazine 25 mg p.o. q.6 hours p.r.n. for nausea and vomiting. 4. Pantoprazole 40 mg b.i.d. 5. Ondansetron 4 mg p.o. q.6 hours p.r.n. Basic metabolic panel for hypokalemia to be done 2 to 3 days after discharge, slip has been provided. PHYSICAL EXAMINATION: Vital signs: At the time of discharge, temperature 98.3 degrees, pulse 80, respiratory rate of 20 per minute, blood pressure 123/83, saturating 100% on room air. General: The patient does not appear to be in any pain and denies any pain. HEENT: Oral cavity is moist. She is spitting out saliva. Lungs: Air entry bilaterally equal. No wheeze, rhonchi, crackles. Cardiovascular: S1, S2 normal. No murmur, rub, or gallop. Abdomen: Soft. Mild epigastric tenderness. Active bowel sounds. Extremities: No lower extremity edema. The patient has been tolerating a liquid diet without discomfort. The patient is supposed to go to [facility] after she goes home today, where she has scheduled outpatient appointment for esophageal dilatation. LABORATORY DATA: At the time of discharge, WBC 54707, hemoglobin 11.2, platelet of 323,000. Sodium of 142, potassium of 3.3 which was repleted, bicarbonate of 18, creatinine of 1.8 which is better since presentation. Calcium of 7.3. IMAGING DURING HOSPITALIZATION: Abdominal x-ray on presentation did not have any specific abnormalities. Abdominal x-ray on November 14 had stable exam without any change. HOSPITAL COURSE SUMMARY: Ms. Bobby is a 43-year-old lady who presented with chief complaints of nausea, vomiting, abdominal discomfort for about 5 days' duration. She was evaluated in the emergency room and she likely had a component of diabetic ketoacidosis and she also had acute kidney injury on chronic kidney disease stage 3. She was admitted for intravenous fluid resuscitation. She did not require any intravenous insulin though. Gastroenterology was consulted for further management. According to Gastroenterology, she had EGD in October which had revealed a grade D esophagitis, long esophageal stricture and peptic ulcer disease secondary to NSAID use, and considering the complexity of her medical issue, she was advised to follow up with [facility] where she already had a scheduled procedure. Inside the hospital, she was managed with intravenous fluids, Protonix, sucralfate and antiemetic medication and she was able to tolerate a clear liquid diet. Repeat basic metabolic panel had suggested improvement in her acute kidney injury and electrolyte profile. Since patient had requested to go to [facility] for getting this procedure done after discussing the risks versus benefit, it was decided that it would be okay for the patient to be discharged. However, she should get a repeat blood test done in about 2 to 3 days' time and immediately call her lining cementer or her regular doctor with the results to see if she would need electrolyte replacement or intravenous fluids. She was in agreement. TIME SPENT: More than 30 minutes were spent in discharge discharging this patient and creating this discharge summary. cc: Clay Still MD
== END 2018-11-16 08:21 | disposition home or self-care (01) | DRG 683 ==
LOC: ED 12:57 → 3N 22:41 → SUATTDRO 22:41
PROVIDERS: ATTEND Internal Medicine
CPT/HCPCS: 51701; 74019; 74020; 80048; 80053; 81001; 81025; 82009; 82150; 82805; 82948; 83690; 85025; 96374; 96375; 99285; A9270; C9113; J1650; J2270; J2300; J2405; J2550; J3480; J7030; P9612; S0164; XXXXX

== ENCOUNTER 2018-11-27 10:59 | Inpatient (IN) ==
[2018-11-27] MEDS ORDERED: MORPHINE IV ONE (12:46)
[2018-11-27] MEDS ORDERED: SODIUM CHLORIDE 0.9% INJ ONE (12:46)
[2018-11-27] MEDS ORDERED: PHENERGAN IV ONE (12:46)
[2018-11-27] MEDS ORDERED: NS 1,000 ML IV ONE ×2 (12:47→14:44)
[2018-11-27 13:44] LABS: BASO# 0.02 X1000 (0.0-0.2); BASO% 0.3 % (0.0-0.8); EOS# 0.05 X1000 (0.0-0.7); EOS% 0.8 % (0.0-10.0); HEMATOCRIT 34.5 % (37.0-47.0); HEMOGLOBIN 11.9 g/dL (12.0-16.0); IMM GRAN# 0.01 X1000 (0.0-0.04); IMM GRAN% 0.2 % (0.0-0.5); LYMPH# 1.42 X1000 (1.2-3.4); MCHC 34.5 g/dL (33-37); MCV 75.3 FL (81-99); MONO# 0.23 X1000 (0.11-0.59); MONO% 3.6 % (1.7-9.3); MPV 11.6 FL (7.4-10.4); NEUT# 4.72 X1000 (1.4-6.5); NEUT% 73.1 % (42.2-75.2); PLT 400 X1000 (130-400); RBC 4.58 XMIL (4.2-5.4); RDW 17.9 % (11.5-14.5); WBC 6.45 X1000 (4.8-10.8)
[2018-11-27 14:19] LABS: ALBUMIN 3.9 g/dL (3.5-5.0); CALCIUM 8.6 mg/dL (8.8-10.2); CREATININE 1.7 mg/dL (0.5-0.9); POTASSIUM 2.8 mmol/L (3.5-5.1); TOTAL BILIRUBIN 0.6 mg/dL (0.20-1.00); TOTAL PROTEIN 7.3 g/dL (6.3-8.3)
[2018-11-27] MEDS ORDERED: KLOR-CON PO ONE (14:43)
[2018-11-27] MEDS ORDERED: POTASSIUM CHLORIDE 40 MEQ/SWI 40 MEQ/100 ML IVPB IV ONE (14:55)
[2018-11-27] MEDS ORDERED: REGLAN IV ONE (16:34)
[2018-11-27] MEDS ORDERED: SODIUM CHLORIDE 0.9% INJ PRN ×2 (17:40→18:36)
[2018-11-27] MEDS ORDERED: PHENERGAN IV PRN ×2 (17:40→18:35)
[2018-11-27] MEDS ORDERED: MORPHINE IV PRN ×2 (17:42→18:35)
[2018-11-27] MEDS ORDERED: NS + KCL 40 MEQ 1,000 ML IV ONE ×2 (17:43→19:00)
[2018-11-27] MEDS ORDERED: REGLAN IV SCH ×2 (17:45→18:45)
[2018-11-27] MEDS ORDERED: PROTONIX IV SCH ×2 (18:00→18:45)
[2018-11-27] MEDS ORDERED: SODIUM CHLORIDE 0.9% INJ SCH ×2 (18:00→18:45)
[2018-11-27] MEDS ORDERED: NS 1,000 ML ONE (18:22)
[2018-11-27] MEDS ORDERED: CARAFATE LIQUID PO SCH ×2 (18:45→20:00)
--- NOTE | 2018-11-27 18:56 | HISTORY AND PHYSICAL ---
CHIEF COMPLAINT: Nausea, vomiting. HISTORY OF PRESENT ILLNESS: This is a 42-year-old female with a history of diabetic gastroparesis, status post gastric pacemaker, as well as chronic intractable nausea, vomiting and abdominal pain. She presents to the emergency room complaining of intractable nausea and vomiting, as well as generalized abdominal pain that started last night. She has been unable to hold any liquids down and her mother states that she "is just spitting constantly." She denies any black or bloody vomitus or stools. PAST MEDICAL HISTORY: 1. Gastroparesis, status post gastric pacemaker. 2. Diabetes type 2, noncompliance with medications. 3. Acute on chronic kidney disease. 4. Hypertension. 5. Esophageal stricture. 6. Recent gastritis. PAST SURGICAL HISTORY: Cholecystectomy, prior feeding tube placement, gastric pacemaker and Port- A-Cath. SOCIAL HISTORY: She denies alcohol or tobacco use. She does smoke marijuana. ALLERGIES: No known drug allergies. HOME MEDICATIONS: Carafate, Nexium, pantoprazole, Compazine, Ambien. REVIEW OF SYSTEMS: Discussed with patient with pertinent positives stated in the HPI. She denied any syncope or dizziness, any chest pain, palpitations, any constipation, diarrhea, black or bloody vomitus or stools, any hematuria, dysuria, frequency, urgency, shortness of breath, cough, fever, chills. PHYSICAL EXAMINATION: GENERAL: This is a 43-year-old female who is lying in the bed in mild distress. VITAL SIGNS: Blood pressure is 135/100, respirations 20, temperature is 97, heart rate is 111. O2 sats are 100% on room air. EYES: Pupils are equal, round, react to light. EOMs are intact. Sclerae anicteric. HEENT: Head is normocephalic, atraumatic. Mucous membranes are dry. NECK: Supple, with trachea midline. She has no JVD. CARDIAC: Regular rate and rhythm. She is tachycardic. S1 and S2 appreciated. No murmurs. No lower extremity edema. Calves are nontender bilateral with peripheral pulses palpable x 4 extremities. PULMONARY: Breath sounds are clear with no increased work of breathing noted. Chest does rise and fall symmetric with respiration. GENITOURINARY: She has no [*] nor suprapubic tenderness. NEUROLOGIC: She is alert and oriented. SKIN: Warm and dry with poor turgor. LABS: WBC is 6.4 with hemoglobin 11.9, hematocrit 34.5, platelets of 400,000. Sodium is 144, potassium 2.8, BUN 4, creatinine 1.7 with a glucose of 2.9. Urine culture was pending. ASSESSMENT AND PLAN: 1. Intractable nausea and vomiting. 2. Gastroparesis status post a gastric pacemaker. 3. Anemia of chronic disease. 4. Diabetes mellitus. 5. Dehydration. 6. Recent esophageal stricture with severe grade 4 esophagitis. 7. Chronic kidney disease, looks like with a baseline creatinine of 1.7. 8. Hypokalemia. PLAN: The patient will be admitted to transfer to [facility] for admission. We will consult Gastroenterology. She will be n.p.o. at present. Can give IV hydration. We will replete potassium. Recheck labs in the morning. In the past, the patient does begin to improve after IV Reglan, so we will start that every 6 hours. Give Protonix b.i.d., start Carafate liquid q.6 hours, giving Phenergan and morphine p.r.n. for pain and nausea. Once again, will check a CBC, CMP and magnesium in the morning. Further treatments pending hospital course. Dictated by NELL Rubi for Jaime Vang MD This chart was documented by, NELL Rubi and accurately reflects the services performed, treatment plan and medical decisions as attested by the providers signature Jaime Vang MD. cc: NELL Rubi MD
--- NOTE | 2018-11-27 21:45 | Diag Imaging Result Doc PS360 ---
EXAM: CT ABDOMEN/PELVIS W/O CONTRAST HISTORY: intractable n/v, gastroparesis, esophageal strictu TECHNIQUE: CT abdomen and pelvis without contrast COMPARISON: 06/01/2018 FINDINGS: The gallbladder has been removed. Normal noncontrasted liver, spleen, pancreas, and adrenal glands. No perinephric inflammation. No renal stones. No hydronephrosis. Normal aorta. No bowel obstruction. No inflammation about the cecum. No abscess. No ascites. The urinary bladder is distended and appears normal. Normal uterus. Neither ovary is enlarged. The contraceptive device. In the dock loader uterine segment. IMPRESSION: 1.Cholecystectomy 2.Contraceptive device in the lower uterine segment 3.No bowel obstruction This exam was performed using automated exposure control, adjustment of mA or kV according to patient size, and/or use of iterative reconstruction technique. Electronically signed by Hebert Soto 11/27/2018 9:43 PM
--- NOTE | 2018-11-27 21:51 | HISTORY AND PHYSICAL ---
Patient seen and examined by myself. Full note dictated and discussed with nurse practitioner. The patient presented to the hospital with nausea and vomiting. Notes that she had been sick for a day or so. However, mom notes that she has been throwing up and not eating well for the past week. Patient unfortunately appears to have not filled the Reglan as she was given a prescription last time. She was recently in the hospital with esophageal stricture. We will admit her to the hospital. We will re-consult GI and follow. cc: Jaime Vang MD MTDD
[2018-11-27] MEDS ORDERED: NS 1,000 ML IV SCH (22:00)
[2018-11-27] MEDS: SODIUM CHLORIDE 0.9% INJ SCH (23:51)
[2018-11-27] MEDS: PROTONIX IV SCH (23:51)
[2018-11-27] MEDS: REGLAN IV SCH (23:51)
[2018-11-28] MEDS: CARAFATE LIQUID PO SCH ×4 (02:46→20:14)
[2018-11-28] MEDS: REGLAN IV SCH ×4 (04:51→23:11)
[2018-11-28 07:07] LABS: BASO# 0.02 X1000 (0.0-0.2); BASO% 0.3 % (0.0-0.8); EOS# 0.05 X1000 (0.0-0.7); EOS% 0.7 % (0.0-10.0); HEMATOCRIT 29.2 % (37.0-47.0); HEMOGLOBIN 9.6 g/dL (12.0-16.0); LYMPH# 1.66 X1000 (1.2-3.4); LYMPH% 23.2 % (20.5-51.1); MCH 25.7 PG (27-31); MCHC 32.9 g/dL (33-37); MCV 78.1 FL (81-99); MONO# 0.64 X1000 (0.11-0.59); MONO% 8.9 % (1.7-9.3); MPV 12.1 FL (7.4-10.4); NEUT# 4.79 X1000 (1.4-6.5); NEUT% 66.9 % (42.2-75.2); PLT 320 X1000 (130-400); RBC 3.74 XMIL (4.2-5.4); RDW 17.7 % (11.5-14.5); WBC 7.16 X1000 (4.8-10.8)
[2018-11-28 07:22] LABS: ALB/GLOB RATIO 1.2; ALBUMIN 3.1 g/dL (3.5-5.0); CALCIUM 8.3 mg/dL (8.8-10.2); CREATININE 1.4 mg/dL (0.5-0.9); MAGNESIUM 1.9 mg/dL (1.5-2.7); TOTAL BILIRUBIN 0.3 mg/dL (0.20-1.00); TOTAL PROTEIN 5.7 g/dL (6.3-8.3)
--- NOTE | 2018-11-28 10:56 | GASTROENTEROLOGY CONSULTATION ---
DATE: 11/28/2018 REASON FOR CONSULTATION: Intractable nausea and vomiting. HISTORY OF PRESENT ILLNESS: Ms. Kaleigh Bobby is a 43-year-old woman, who is well known to our practice with a past medical history significant for poorly-controlled insulin-dependent diabetes complicated by gastroparesis requiring gastric pacemaker placement and prior PEG tube, GERD with LA grade D esophagitis, severe esophageal stricture, gastric and duodenal ulcers, who re-presents with recurrent nausea and vomiting and poor p.o. intake over the last 1 day. The patient has been hospitalized 4 times in the last couple of months for similar symptoms. She has also had multiple EGD's including from myself, as well as Dr. Haq and recently EGD and [facility] on November 16, where she had upper GI endoscopy and was found to have Viky esophagitis, as well as a tight 6 mm in diameter stricture in the mid esophagus which required pediatric endoscope to traverse. No dilation was performed at that time. She was continued on Carafate and PPI and started on Diflucan for esophagitis with the plan to followup in 4 weeks to assess healing of her esophagitis. Since November 16, she has been primarily only taking in Gatorade and water, and had been tolerating that up until yesterday when she developed nonbloody, nonbilious emesis with p.o. intake. She does describe having poor ability to tolerate secretions and at bedside is spitting into a bag. She denies any chest pain, shortness of breath, cough, lightheadedness, dizziness. She does have chronic abdominal pain associated with her ulcers and gastroparesis that is unchanged. She is not taking any NSAIDs or aspirin. She denies having any changes in her bowel movements, having 1 to 2 formed bowel movements daily that have no blood or melena. She has lost 5 pounds since all of this has started. She is not clear on whether or not she is taking Diflucan, but does say she is taking a medication that starts with an "0" as well as Carafate regularly. PAST MEDICAL HISTORY: As per HPI. Also, hypertension, diabetic neuropathy. PAST SURGICAL HISTORY: Cholecystectomy, prior PEG tube placement removed, gastric pacemaker, Port- A-Cath. SOCIAL HISTORY: She is a former smoker. Denies any alcohol use, although she does smoke marijuana. No other drug use. ALLERGIES: No known drug allergies. MEDICATIONS: Include Carafate, Norvasc, presumably omeprazole, Phenergan, Zofran, Ambien. FAMILY HISTORY: No family history of GI malignancies or esophageal disorders. REVIEW OF SYSTEMS: As per HPI, otherwise 12 point review of systems is negative. PHYSICAL EXAMINATION: Vital Signs: Temperature 97.6 degrees, heart rate 85, respiratory rate 20, blood pressure 154/92, O2 saturation 100% on room air. General: Patient is awake, alert, oriented, in no acute distress. HEENT: Sclerae anicteric. Moist mucous membranes. Extraocular motor intact. Neck: Supple. No JVD. No lymphadenopathy. Chest: Right chest wall Port-A- Cath. Cardiac: Regular rate and rhythm. No murmurs, rubs or gallops. Lungs: Clear to auscultation bilaterally. Abdomen: Soft, nontender, nondistended. Normoactive bowel sounds. No rebound or guarding. Prior PEG tube site noted. Extremities: No clubbing, cyanosis, or edema. Neurologic: Nonfocal. The patient is ambulatory. LABS: White count of 7.1, hemoglobin 9.6 from 11.9 yesterday, MCV 78, platelets of 320,000. Sodium 151, potassium 3.0 from 2.8 yesterday, chloride of 122, bicarbonate of 18. BUN of 5, creatinine of 1.4 from baseline of 1.2 to 1.3. Glucose 124. LFTs show alkaline phosphatase of 127, otherwise unremarkable. Albumin 3.1. IMAGING: CT abdomen and pelvis done yesterday shows prior cholecystectomy, a contraceptive device in the lower uterine segment. No bowel obstruction. Essentially no acute process. ASSESSMENT AND PLAN: Ms. Kaleigh Bobby is a 43-year-old woman, who re-presents with intractable nausea, vomiting, in a setting of known tight esophageal stricture, gastric and duodenal ulcers, and gastroparesis. She has been having difficulty tolerating liquids including saliva. I am concerned that her stricture is either worsening or she is noncompliant with proton pump inhibitor and Carafate therapies. I do not think that we should pursue esophagogastroduodenoscopy at this time given her recent procedures, and would recommend that she be initiated on total parenteral nutrition given sips for comfort and plan for her to follow up at [facility] as previously scheduled for repeat esophagogastroduodenoscopy in the next 1 to 2 weeks. She would likely need esophageal dilation plus or minus stent placement given the severity of her stricture. I would continue to keep her on proton pump inhibitor intravenous twice daily and Carafate liquid as tolerated 1 gram 4 times a day. Other findings include hypokalemia likely secondary to vomiting. Recommend repleting as needed. Acute kidney injury from volume depletion. Intravenous fluids are ordered. Anemia, iron deficiency, secondary to known esophagitis and ulcers. Gastroparesis. Continue antiemetics as needed. The patient will be initiated on total parenteral nutrition given esophageal strictures. Minimize narcotics and agents that would slow gastric and bowel motility. Insulin-dependent diabetes on sliding scale insulin. Thank you for this consult. We will follow with you. Please call with any questions or concerns.
[2018-11-28] MEDS: PROTONIX IV SCH ×2 (11:25→23:11)
[2018-11-28] MEDS: MORPHINE IV PRN ×3 (11:34→20:14)
--- NOTE | 2018-11-28 14:42 | PROGRESS NOTE ---
DATE: 11/28/2018 SUBJECTIVE: Patient is resting comfortably in bed. As per the patient, she is not complaining at this moment of nausea or vomiting. She has requested some liquids by mouth. She is getting IV fluids. I will add potassium to her IV fluids for now. She will be placed on TPN. OBJECTIVE: Vital Signs: Temperature 98.1 degrees, pulse 69, respiratory rate 16, blood pressure 136/82, oxygen saturation 91% on room air. HEENT: Head normocephalic. No trauma. PERRLA. Neck: Supple. No JVD. No masses. Central trachea. Chest: Clear to auscultation. No wheezing. No rales. Abdomen: Soft. Some tenderness to palpation at the level of the periumbilical area and epigastric area. She had a gastric stimulator and old abdominal scars but the abdomen is soft. Extremities: No edema. No clubbing. No cyanosis. Neurological Examination: The patient is alert and oriented x3. No focal deficits. Laboratory: WBCs 7.1, hemoglobin 9.6, hematocrit 29.2, platelets 320,000. Sodium 151, potassium 3, chloride 122, bicarbonate 18, BUN 5, creatinine 1.4, glucose 124, calcium 8.3, albumin 3.1. ASSESSMENT AND PLAN: 1. Intractable nausea and vomiting. This is getting better. We will continue with intravenous fluids Gastroenterology department has requested total parenteral nutrition for this patient. She has been treated at [facility] and she has an appointment with them with possible esophagogastroduodenoscopy to treat her esophageal stricture, I think in 1 or 2 weeks. 2. Gastroparesis, status post pacemaker placement. Aware. 3. Hypernatremia. I will increase the water intake. She has been drinking water fine at this moment. She will be placed on total parenteral nutrition. We will monitor. 4. Hypokalemia. I will replace the potassium. 5. Anemia of chronic disease. Aware. 6. Type 2 diabetes. We will do sliding scale insulin and pattern of blood sugar. 7. Dehydration. She is looking better at this moment. We will continue with fluids. 8. Recent esophageal stricture with severe esophagitis, aware. She has been treated at [facility]. We will put this patient on total parenteral nutrition until her symptoms resolve. I do believe she has a scheduled procedure at [facility] in 1 or 2 weeks. 9. Chronic kidney disease. This is her baseline. 10. She feels a bit better. We will put this patient on total parenteral nutrition. Once the electrolyte imbalances and the nausea and vomiting are resolved, we will discharge this patient home. cc: Kiet Manning MD
[2018-11-28] MEDS: NS + KCL 40 MEQ 1,000 ML IV SCH (14:48)
[2018-11-28] MEDS ORDERED: MAGNESIUM SULFATE IV SCH ×7 (17:00)
[2018-11-28] MEDS ORDERED: [UNRECOGNIZED DRUG - OTHER] IV SCH ×7 (17:00)
[2018-11-28] MEDS ORDERED: TPN ELECTROLYTES IV SCH ×7 (17:00)
[2018-11-28] MEDS ORDERED: SODIUM PHOSPHATE IV SCH ×7 (17:00)
[2018-11-28] MEDS ORDERED: TPN ELECTROLYTES 20 ML, MAGNESIUM SULFATE 5 MEQ, POTASSIUM PHOSPHATE 15 MMOL, M.V.I.-12... IV SCH ×7 (17:20)
[2018-11-28] MEDS: PHENERGAN IV PRN (18:52)
[2018-11-28] MEDS: LIPOSYN 20% 500 ML IV SCH (18:56)
[2018-11-28] MEDS: SODIUM CHLORIDE 0.9% INJ SCH (23:11)
[2018-11-29] MEDS: CARAFATE LIQUID PO SCH ×4 (01:50→21:03)
[2018-11-29] MEDS: NS + KCL 40 MEQ 1,000 ML IV SCH (05:09)
[2018-11-29] MEDS: REGLAN IV SCH ×3 (05:10→17:42)
[2018-11-29] MEDS: MORPHINE IV PRN ×6 (05:10→22:05)
[2018-11-29 06:38] LABS: BASO# 0.02 X1000 (0.0-0.2); BASO% 0.4 % (0.0-0.8); EOS# 0.16 X1000 (0.0-0.7); EOS% 3.2 % (0.0-10.0); HEMATOCRIT 24.8 % (37.0-47.0); HEMOGLOBIN 8.4 g/dL (12.0-16.0); LYMPH% 38.5 % (20.5-51.1); MCH 27.9 PG (27-31); MCHC 33.9 g/dL (33-37); MCV 82.4 FL (81-99); MONO% 6.1 % (1.7-9.3); MPV 11.9 FL (7.4-10.4); NEUT# 2.55 X1000 (1.4-6.5); NEUT% 51.8 % (42.2-75.2); PLT 282 X1000 (130-400); RBC 3.01 XMIL (4.2-5.4); RDW 18.6 % (11.5-14.5); WBC 4.93 X1000 (4.8-10.8)
[2018-11-29] MEDS ORDERED: DULCOLAX PR SCH (09:00)
[2018-11-29] MEDS: DULCOLAX PR SCH (09:00)
[2018-11-29 09:33] LABS: ALB/GLOB RATIO 1.2; ALBUMIN 2.8 g/dL (3.5-5.0); CREATININE 1.5 mg/dL (0.5-0.9); DIRECT BILIRUBIN 0.1 mg/dL (0.00-0.20); PHOSPHORUS 3.5 mg/dL (2.7-4.5); POTASSIUM 4.6 mmol/L (3.5-5.1); TOTAL BILIRUBIN 0.3 mg/dL (0.20-1.00); TOTAL PROTEIN 5.2 g/dL (6.3-8.3)
[2018-11-29] MEDS: SODIUM CHLORIDE 0.9% INJ SCH (11:50)
[2018-11-29] MEDS: PROTONIX IV SCH (11:50)
--- NOTE | 2018-11-29 12:30 | GASTROENTEROLOGY PROGRESS NOTE ---
DATE: 11/29/2018 SUBJECTIVE: Patient resting in bed. She is on TPN. She denies any vomiting. She has not moved her bowels for 3 days. OBJECTIVE: Vitals: Temperature 97.3, pulse of 92, respiratory rate of 20, blood pressure of 140/95, saturating 100% on room air. General Appearance: Thinly built, lying in bed, in no acute distress. HEENT: Pale. Conjunctivae, no icterus. Pupils equal and reactive to light. Neck: Supple. Abdomen: Soft, nontender, nondistended. No guarding or rebound. Extremities: No cyanosis, clubbing, or edema. Neurologic: She is alert, awake, oriented. DIAGNOSTIC DATA: Hemoglobin and hematocrit 8.4 and 24.8, white count of 4.93, platelet count of 282,000. Sodium of 150, potassium 4.6, chloride 123, bicarb of 18, anion gap of 9, BUN of 5, creatinine 1.5, glucose of 245. Calcium is 8. Total bilirubin 0.3, direct of 0.1. AST 17, ALT 10, alkaline phosphatase of 112. Total protein 5.2. Albumin of 2.8, pre-albumin of 14. Triglycerides of 135. IMPRESSION AND PLAN: 1. Esophageal stricture. She was seen at [facility]. They were able to pass an XP scope through the area but they did not dilate the area because of esophagitis. She was told to come back in 2 weeks. She was put on antifungal medication as well. She will continue to follow up with [facility] in 2 to 3 weeks. We will try to obtain records from [facility] so that her future appointments can be planned. 2. Malnutrition. She will continue on TPN for now. 3. Electrolyte imbalance. This is being managed by the primary team. 4. She will continue on IV PPIs b.i.d. and Carafate 1 g q.6h. 5. Dehydration. Continue to hydrate as needed. 6. Gastroparesis. She will keep good control of diabetes. We encouraged her to be compliant with her medications. 7. Constipation. We need to reduce the narcotics as low as possible. 8. We will give her a bowel regimen. 9. Gastrointestinal prophylaxis. PPIs. We will continue to follow closely. The above plans was discussed with the patient and all questions answered. Please call us with any further questions. cc: MD Kiet Villa MD
[2018-11-29] MEDS: PHENERGAN IV PRN ×2 (13:14→19:57)
--- NOTE | 2018-11-29 14:54 | PROGRESS NOTE ---
DATE: 11/29/2018 SUBJECTIVE: The patient is resting comfortably in bed. She is on TPN at this moment. She denies any nausea or vomiting today. Apparently, she had some mild nausea yesterday in the afternoon. She had a bowel movement today. Will continue with the same management. OBJECTIVE: Vital Signs: Temperature 97.3 degrees, pulse 92, respiratory rate 20, blood pressure 146/95, oxygen saturation 100% on room air. HEENT: Head normocephalic. No trauma. PERRLA. Neck: Supple. No JVD. No masses. Central trachea. Chest: Clear to auscultation. No wheezing. No rales. Abdomen: Soft. Some tenderness to palpation at the level of the periumbilical area and epigastric area. She had a gastric stimulator and also an abdominal scar that is chronic. Extremities: No edema. No clubbing. No cyanosis. Neurological: The patient is alert and oriented x3. No focal deficits. LABORATORY DATA: WBC 4.9, hemoglobin 8.4, hematocrit 24.8, platelets 282,000. Sodium 150, potassium 4.6, chloride 123, bicarbonate 18, BUN 5, creatinine 1.5, glucose 245, calcium 8. ASSESSMENT AND PLAN: 1. Intractable nausea and vomiting. This is getting better. Will continue with intravenous fluid/total parenteral nutrition. Gastroenterology Department on board. The plan is to continue with total parenteral nutrition, and once the electrolytes are good, she can be discharged home and follow up at [facility], which I believe is in 2 weeks. 2. Gastroparesis. Continue with the same management, status post pacemaker placement. 3. Hypernatremia. We will increase the free water intake. Case has been discussed with the form tamper operator. 4. Hypokalemia, resolved. 5. Anemia of chronic disease. Aware. 6. Type 2 diabetes. Continue with pattern of blood sugar and sliding scale insulin. 7. Dehydration. She is hydrated at this moment. Resolved. 8. Recent esophageal stricture with severe esophagitis. Aware. She has been treated at [facility]. We have put this patient on total parenteral nutrition, and once the symptoms and the problem resolve, it can be just taken everything by mouth. I do believe she has a scheduled procedure at [facility] in 2 weeks. 9. Chronic kidney disease. This is her baseline. The patient feels a little bit better. Will continue with the same management. Once the electrolyte imbalances are corrected, I believe she can be discharged home with total parenteral nutrition, and follow up at [facility]. cc: Kiet Manning MD
[2018-11-29] MEDS ORDERED: POTASSIUM PHOSPHATE IV SCH ×9 (15:00)
[2018-11-29] MEDS ORDERED: [UNRECOGNIZED DRUG - OTHER] IV SCH ×9 (15:00)
[2018-11-29] MEDS ORDERED: TPN ELECTROLYTES IV SCH ×9 (15:00)
[2018-11-29] MEDS ORDERED: MAGNESIUM SULFATE IV SCH ×9 (15:00)
[2018-11-29] MEDS: LIPOSYN 20% 500 ML IV SCH (17:42)
[2018-11-29] MEDS: HUMULIN R SUBQ SCH ×2 (18:43→21:02)
[2018-11-30] MEDS: REGLAN IV SCH ×4 (00:10→17:12)
[2018-11-30] MEDS: PROTONIX IV SCH ×2 (00:10→12:02)
[2018-11-30] MEDS: SODIUM CHLORIDE 0.9% INJ SCH ×2 (00:10→12:03)
[2018-11-30] MEDS: CARAFATE LIQUID PO SCH ×4 (01:43→20:09)
[2018-11-30] MEDS: MORPHINE IV PRN ×6 (02:05→23:01)
[2018-11-30] MEDS: PHENERGAN IV PRN ×4 (02:07→20:07)
[2018-11-30 06:54] LABS: BASO# 0.01 X1000 (0.0-0.2); BASO% 0.2 % (0.0-0.8); EOS# 0.17 X1000 (0.0-0.7); EOS% 3.2 % (0.0-10.0); HEMATOCRIT 26.3 % (37.0-47.0); HEMOGLOBIN 8.4 g/dL (12.0-16.0); LYMPH# 2.94 X1000 (1.2-3.4); LYMPH% 54.9 % (20.5-51.1); MCH 25.5 PG (27-31); MCHC 31.9 g/dL (33-37); MCV 79.9 FL (81-99); MONO# 0.37 X1000 (0.11-0.59); MONO% 6.9 % (1.7-9.3); MPV 12.2 FL (7.4-10.4); NEUT# 1.87 X1000 (1.4-6.5); NEUT% 34.8 % (42.2-75.2); PLT 274 X1000 (130-400); RBC 3.29 XMIL (4.2-5.4); RDW 18.5 % (11.5-14.5); WBC 5.36 X1000 (4.8-10.8)
[2018-11-30 07:30] LABS: ALB/GLOB RATIO 1.3; ALBUMIN 2.7 g/dL (3.5-5.0); CALCIUM 7.4 mg/dL (8.8-10.2); CREATININE 1.4 mg/dL (0.5-0.9); DIRECT BILIRUBIN 0.1 mg/dL (0.00-0.20); MAGNESIUM 1.8 mg/dL (1.5-2.7); PHOSPHORUS 3.4 mg/dL (2.7-4.5); POTASSIUM 3.8 mmol/L (3.5-5.1); TOTAL BILIRUBIN 0.26 mg/dL (0.20-1.00); TOTAL PROTEIN 4.8 g/dL (6.3-8.3)
[2018-11-30] MEDS: HUMULIN R SUBQ SCH ×4 (07:55→21:00)
[2018-11-30] MEDS: SODIUM CHLORIDE 0.9% INJ PRN ×3 (08:05→20:09)
[2018-11-30] MEDS: DULCOLAX PR SCH (08:05)
[2018-11-30] MEDS: TPN ELECTROLYTES IV SCH ×10 (15:32)
[2018-11-30] MEDS: [UNRECOGNIZED DRUG - OTHER] IV SCH ×10 (15:32)
[2018-11-30] MEDS: POTASSIUM PHOSPHATE IV SCH ×10 (15:32)
[2018-11-30] MEDS: MAGNESIUM SULFATE IV SCH ×10 (15:32)
[2018-11-30] MEDS: LIPOSYN 20% 500 ML IV SCH (18:00)
[2018-12-01] MEDS: SODIUM CHLORIDE 0.9% INJ SCH ×3 (01:27→22:01)
[2018-12-01] MEDS: PROTONIX IV SCH ×4 (01:27→22:47)
[2018-12-01] MEDS: CARAFATE LIQUID PO SCH ×4 (01:28→19:41)
[2018-12-01] MEDS: REGLAN IV SCH ×5 (01:28→22:48)
[2018-12-01] MEDS: PHENERGAN IV PRN ×4 (03:33→22:00)
[2018-12-01 07:00] LABS: ALB/GLOB RATIO 1.1; ALBUMIN 2.4 g/dL (3.5-5.0); CALCIUM 7.4 mg/dL (8.8-10.2); CREATININE 1.3 mg/dL (0.5-0.9); DIRECT BILIRUBIN 0.1 mg/dL (0.00-0.20); MAGNESIUM 1.7 mg/dL (1.5-2.7); PHOSPHORUS 3.1 mg/dL (2.7-4.5); POTASSIUM 4.1 mmol/L (3.5-5.1); TOTAL BILIRUBIN 0.18 mg/dL (0.20-1.00); TOTAL PROTEIN 4.5 g/dL (6.3-8.3)
[2018-12-01] MEDS: HUMULIN R SUBQ SCH ×4 (07:29→20:44)
[2018-12-01] MEDS: MORPHINE IV PRN ×5 (07:29→23:36)
[2018-12-01] MEDS: DULCOLAX PR SCH (09:43)
[2018-12-01] MEDS: SODIUM CHLORIDE 0.9% INJ PRN ×2 (09:44→15:46)
--- NOTE | 2018-12-01 13:22 | DISCHARGE SUMMARY ---
ADMISSION DATE: 11/27/2018 DISCHARGE DATE: 11/30/2018 ADMISSION DIAGNOSIS: 1. Intractable nausea and vomiting. 2. Gastroparesis status post gastric pacemaker. 3. Severe grade 4 esophagitis. 4. Anemia of chronic disease. 5. Diabetes mellitus. 6. Dehydration. 7. Chronic kidney disease. 8. Hypokalemia. DISCHARGE DIAGNOSIS: 1. Intractable nausea and vomiting. 2. Gastroparesis status post gastric pacemaker. 3. Severe grade 4 esophagitis. 4. Anemia of chronic disease. 5. Diabetes mellitus. 6. Dehydration. 7. Chronic kidney disease. 8. Hypokalemia. CONSULTATIONS: Charles Cano MD with Gastroenterology. Nidia Whiting MD with Gastroenterology. DIAGNOSTIC PROCEDURES AND FINDINGS: Abdomen and pelvis CT 11/27/2018 shows cholecystectomy, contraceptive device in the lower uterine segment, no bowel obstruction. HOSPITAL COURSE: Ms. Bobby is a 43-year-old -[place] female, who is very well known to our service, with multiple admission for intractable nausea and vomiting. She has a gastric pacemaker and returned to our facility with continued abdominal pain, drooling, and intractable nausea and vomiting. She denies any hematemesis or hematochezia. She denied any melena or hematochezia, and there was no hematemesis. She was initially seen at [facility] and transferred to our facility for Gastroenterology consultation. GI saw her and felt that her symptoms were secondary to her severe stricture and have since deferred definitive therapy to [facility], where she sees a specialist down there. The recommendation at this time was to place a PICC line with TPN, which will be arranged by Dr. Whiting for replacement of fluids, electrolytes, and nutrition. She will need to follow up with [facility] as directed, otherwise her vitals are stable, and she is now stable for discharge to home. DISCHARGE MEDICATIONS: 1. Ambien 10 mg p.o. at bedtime. 2. Insulin Novolin R as directed. 3. Carafate 1 g p.o. q.6 hours. 4. Dulcolax 10 mg p.o. daily. 5. Promethazine 25 mg p.o. q.6. 6. Protonix 40 mg daily. 7. TPN per GI. DISCHARGE DIET: Full TPN until changed by her subspecialist at [facility]. DISCHARGE LABS: WBC 5.36, hemoglobin 8.4, hematocrit 26.3, platelet count 274. Sodium 140, potassium 3.8, chloride 113, CO2 18, anion gap 9, BUN 6, creatinine 1.4, glucose 154. LFTs negative. Protein 4.8. Albumin 2.7. DISCHARGE ACTIVITY: Resume activity as tolerated. DISPOSITION AND OTHER DISCHARGE INSTRUCTIONS: The patient is discharged home to self-care. She is to follow up with [facility] regarding her severe esophageal stricture as directed. She is to continue antibiotics and follow up with Dr. Whiting regarding TPN management. She is to return to the ER or call 911 for worsening complaints or concerns. All questions answered. DISCHARGE TIME: Greater than 35 minutes. Dictated by NELL Mata for Kiet Manning MD cc: MD Nidia Darden MD Alexander J. Mikolaschek, CRNP Omar J. Sosa-Chirinos, MD Manish Arora, MD
--- NOTE | 2018-12-01 14:38 | PROGRESS NOTE ---
DATE: 12/01/2018 SUBJECTIVE: Patient is resting comfortably in bed. She is on total parenteral nutrition. No nausea, no vomiting. Continue with the same management. OBJECTIVE: Vital Signs: Temperature 98.2 degrees, pulse 85, respiratory rate 18, blood pressure 125/83, oxygen saturation 100% on room air. HEENT: Head normocephalic, no trauma. PERRLA. Neck: Supple. No JVD. No masses. Central trachea. Chest: Clear to auscultation. No wheezing. No rales. Abdomen: Soft, nontender, nondistended. She has a gastric stimulator and also an abdominal scar with no signs of infection, chronic. Extremities: No edema, no clubbing, no cyanosis. Neurological: The patient is alert and oriented x3. No focal deficits. LABORATORY DATA: Sodium 141, potassium 4.1, chloride 115, bicarbonate 19, BUN 11, creatinine 1.3, glucose 152, calcium 7.4, albumin 2.4. ASSESSMENT AND PLAN: 1. Intractable nausea and vomiting, resolved. 2. Severe esophageal stricture, we have placed this patient on total parenteral nutrition, pending [facility] re-evaluation and treatment. 3. Gastroparesis. Stable. 4. Hypernatremia, resolved. 5. Hypokalemia, resolved. 6. Anemia of chronic disease. Aware. 7. Type 2 diabetes, stable. 8. Dehydration, resolved. 9. Recent esophageal stricture treatment with severe esophagitis, aware. Continue treating this patient at [facility]. She has been placed on total parenteral nutrition. 10. Chronic kidney disease, this is her baseline. cc: Kiet Manning MD
[2018-12-01] MEDS: POTASSIUM PHOSPHATE IV SCH ×10 (15:54)
[2018-12-01] MEDS: MAGNESIUM SULFATE IV SCH ×10 (15:54)
[2018-12-01] MEDS: TPN ELECTROLYTES IV SCH ×10 (15:54)
[2018-12-01] MEDS: [UNRECOGNIZED DRUG - OTHER] IV SCH ×10 (15:54)
[2018-12-01] MEDS: LIPOSYN 20% 500 ML IV SCH (16:53)
--- NOTE | 2018-12-01 18:55 | GASTROENTEROLOGY PROGRESS NOTE ---
DATE: 11/30/2018 SUBJECTIVE: The patient is resting better, on TPN. She does not have any vomiting. She would like to get sips of liquids. OBJECTIVE: Vital signs: Temperature 97 degrees, pulse 92, respiration rate 20, blood pressure 140/96, O2 saturation 100%. HEENT: Pale conjunctivae. Neck supple. Trachea midline. Heart tone is normal. Abdomen soft, nontender. LABORATORY DATA: Hematocrit 24.9. Albumin low at 2.8. IMPRESSION AND PLAN: 1. Severe esophageal stricture with severe esophagitis, has been treated at [facility]. 2. Malnutrition, on total parenteral nutrition. She will go home with total parenteral nutrition. I just talked with her home parenteral nutrition. We will try and see if we can get everything arranged by this afternoon, then she can be discharged. 3. Electrolyte imbalance. 4. Continue proton pump inhibitor. 5. Gastroparesis. 6. Gastrointestinal prophylaxis. I talked to Dr. Spencer as well. If everything can be arranged, she can go home today. cc: Nidia Whiting MD
[2018-12-02] MEDS: CARAFATE LIQUID PO SCH ×4 (02:11→20:24)
[2018-12-02] MEDS: MORPHINE IV PRN ×5 (04:20→20:25)
[2018-12-02] MEDS: REGLAN IV SCH ×3 (05:41→17:31)
[2018-12-02] MEDS: PHENERGAN IV PRN ×3 (05:41→18:09)
[2018-12-02] MEDS: HUMULIN R SUBQ SCH ×4 (06:00→20:25)
[2018-12-02 07:30] LABS: AGAP 10; ALBUMIN 2.6 g/dL (3.5-5.0); ALKALINE PHOSPHATASE 98 U/L (32-104); BUN 14 mg/dL (8-22); CALCIUM 7.5 mg/dL (8.8-10.2); CHLORIDE 112 mmol/L (98-107); COSMO 283; CREATININE 1.1 mg/dL (0.5-0.9); ESTIMATED GFR > 60; GLUCOSE 180 mg/dL (70-104); GOT 12 U/L (10-30); GPT 8 U/L (10-36); MAGNESIUM 1.8 mg/dL (1.5-2.7); PHOSPHORUS 3.1 mg/dL (2.7-4.5); POTASSIUM 4.2 mmol/L (3.5-5.1); SODIUM 139 mmol/L (136-145); TCO2 17 mmol/L (25-35); TOTAL BILIRUBIN 0.15 mg/dL (0.20-1.00); TOTAL PROTEIN 5.2 g/dL (6.3-8.3)
--- NOTE | 2018-12-02 09:30 | PROGRESS NOTE ---
DATE: 12/02/2018 SUBJECTIVE: No acute events overnight. OBJECTIVE: Vital Signs: Temperature 98.5 degrees, pulse 100, respiratory rate 20, blood pressure 130/85. Oxygen saturation 100% on room air. HEENT: Head normocephalic. No trauma. PERRLA. Neck: Supple. No JVD. No masses. Central trachea. Chest: Clear to auscultation. No wheezing. No rales. Abdomen: Soft, nontender, nondistended. She has a gastric stimulator and also an old abdominal scar, no signs of infection. Extremities: No edema, no clubbing, no cyanosis. Neurological: The patient is alert and oriented x3. No focal deficits. LABORATORY: Sodium 139, potassium 4.2, chloride 112, bicarbonate 17, BUN 14, creatinine 1.1, glucose 180, calcium 7.5, albumin 2.6. ASSESSMENT AND PLAN: 1. Intractable nausea and vomiting, resolved. 2. Severe esophageal stricture, we have placed this patient on TPN, pending [facility] re-evaluation and treatment. It looks like they will rescope this patient soon. 3. Gastroparesis, stable. 4. Hypernatremia, resolved. 5. Hypokalemia, resolved. 6. Anemia of chronic disease. Aware. 7. Type 2 diabetes. Stable. 8. Dehydration, resolved. 9. Recent esophageal stricture treatment with severe esophagitis, aware. Continue treatment at [facility]. She has been placed on total parenteral nutrition. 10. Chronic kidney disease, this is her baseline. Stable. cc: Kiet Manning MD
[2018-12-02] MEDS: DULCOLAX PR SCH (12:10)
[2018-12-02] MEDS: SODIUM CHLORIDE 0.9% INJ PRN ×2 (12:13→18:09)
[2018-12-02] MEDS: SODIUM CHLORIDE 0.9% INJ SCH (14:17)
[2018-12-02] MEDS: PROTONIX IV SCH (14:17)
--- NOTE | 2018-12-02 15:08 | GASTROENTEROLOGY PROGRESS NOTE ---
DATE: 12/02/2018 SUBJECTIVE: Patient had no acute events and does not have any nausea and vomiting. OBJECTIVE: Vital Signs: Temperature 98 degrees, pulse 100, respiratory rate 20, blood pressure 130/85, O2 saturation 100%. HEENT: No conjunctival pallor. Neck: Supple. Trachea midline. Heart and Lungs: Normal. Neurologic: Intact. Labs: Electrolytes are normal. Albumin is low at 2.6. IMPRESSION AND PLAN: 1. Nausea and vomiting, resolved. 2. Severe esophagitis with stricture. 3. Gastroparesis. 4. Anemia. 5. Diabetes. 6. Dehydration. 7. Mild nutrition, on total parenteral nutrition. 8. Continue followup at [facility]. 9. Hopefully, we will get her home for home total parenteral nutrition Monday. cc: Nidia Whiting MD
[2018-12-02] MEDS: POTASSIUM PHOSPHATE IV SCH ×10 (15:40)
[2018-12-02] MEDS: TPN ELECTROLYTES IV SCH ×10 (15:40)
[2018-12-02] MEDS: [UNRECOGNIZED DRUG - OTHER] IV SCH ×10 (15:40)
[2018-12-02] MEDS: MAGNESIUM SULFATE IV SCH ×10 (15:40)
[2018-12-02] MEDS: LIPOSYN 20% 500 ML IV SCH (16:22)
[2018-12-03] MEDS: PHENERGAN IV PRN ×4 (00:22→18:12)
[2018-12-03] MEDS: SODIUM CHLORIDE 0.9% INJ SCH ×2 (00:22→12:52)
[2018-12-03] MEDS: PROTONIX IV SCH ×2 (00:22→12:52)
[2018-12-03] MEDS: REGLAN IV SCH ×5 (00:22→18:14)
[2018-12-03] MEDS: MORPHINE IV PRN ×6 (00:23→22:16)
[2018-12-03] MEDS: SODIUM CHLORIDE 0.9% INJ PRN ×3 (00:23→18:14)
[2018-12-03] MEDS: HUMULIN R SUBQ SCH ×6 (00:38→22:16)
[2018-12-03] MEDS: CARAFATE LIQUID PO SCH ×4 (01:23→22:16)
[2018-12-03] MEDS: DULCOLAX PR SCH (09:37)
[2018-12-03 10:24] LABS: AGAP 8; ALB/GLOB RATIO 1.1; ALBUMIN 2.8 g/dL (3.5-5.0); ALKALINE PHOSPHATASE 92 U/L (32-104); BUN 13 mg/dL (8-22); CHLORIDE 108 mmol/L (98-107); COSMO 279; CREATININE 1.1 mg/dL (0.5-0.9); ESTIMATED GFR > 60; GLUCOSE 196 mg/dL (70-104); GOT 13 U/L (10-30); GPT 8 U/L (10-36); MAGNESIUM 1.8 mg/dL (1.5-2.7); PHOSPHORUS 2.7 mg/dL (2.7-4.5); POTASSIUM 4.1 mmol/L (3.5-5.1); SODIUM 137 mmol/L (136-145); TCO2 21 mmol/L (25-35); TOTAL BILIRUBIN 0.17 mg/dL (0.20-1.00); TOTAL PROTEIN 5.3 g/dL (6.3-8.3)
--- NOTE | 2018-12-03 10:32 | GASTROENTEROLOGY PROGRESS NOTE ---
DATE: 12/03/2018 SUBJECTIVE: Patient is resting in bed. She is feeling better. She is tolerating liquids well. She is tolerating TPN well. She denies any nausea or vomiting. She denies any fevers, rigors, or chills. OBJECTIVE: Vital signs: Temperature 98.4 degrees, pulse of 88, respiratory rate 18, blood pressure 132/77, saturating 100% on room air. General Appearance: Moderately built, moderately- nourished, lying in bed, in no acute distress. HEENT: Pale conjunctivae. No icterus. Pupils equal, reactive to light. Neck: Supple. Abdomen: Soft, nontender, nondistended. No guarding or rebound. Extremities: No cyanosis, clubbing. Neurologic: She is alert, awake, oriented x3. LABORATORIES: Her labs were checked yesterday. Her sodium 139, potassium 4.2, chloride 112, bicarb of 79, gap of 10, BUN of 14, creatinine glucose of 180, calcium 7.5, phosphorus 3.1, magnesium 1.8. Total bilirubin is 0.15, AST 12, ALT 8, alkaline phosphatase 98. Total protein 5.2, albumin of 2.6. Her hemoglobin and hematocrit on 11/30 was 8.4 and 26.3, white count of 5.3, platelet count of 274,000. IMPRESSION AND PLAN: 1. Intractable nausea, vomiting has improved. This is secondary to a long esophageal stricture and gastroparesis. The patient was recommended to follow up with [facility] Gastroenterology for repeat EGD with possible stent placement. She was seen at [facility] a few days ago. She was told to come back after 2 weeks. The patient was encouraged to keep her appointments and also improve her compliance with medications. 2. Malnutrition. Continue TPN. She is also tolerating liquid diet. She will continue Glucerna at home 3 times daily. 3. Gastroparesis. She will continue on Reglan. 4. Anemia. Continue to watch for now and transfuse as needed. 5. Diabetes. She needs to keep a good control of diabetes. 6. Chronic kidney disease stable. 7. She will continue Protonix twice daily for 3 months. She will also continue on home TPN per the home health nursing. She will continue on Carafate 1 g 6 hours for 6 weeks for now. The above plans were discussed with the patient and all questions answered. Also discussed with Dr. Spencer. Please call us with any further questions. cc: MD Kiet iVlla MD MTDD
[2018-12-03] MEDS: [UNRECOGNIZED DRUG - OTHER] IV SCH ×9 (16:29)
[2018-12-03] MEDS: MAGNESIUM SULFATE IV SCH ×9 (16:29)
[2018-12-03] MEDS: TPN ELECTROLYTES IV SCH ×9 (16:29)
[2018-12-03] MEDS: POTASSIUM PHOSPHATE IV SCH ×9 (16:29)
[2018-12-03] MEDS: LIPOSYN 20% 500 ML IV SCH (16:29)
[2018-12-04] MEDS: PHENERGAN IV PRN ×3 (00:34→14:14)
[2018-12-04] MEDS: REGLAN IV SCH ×4 (01:17→20:03)
[2018-12-04] MEDS: HUMULIN R SUBQ SCH ×5 (01:17→18:08)
[2018-12-04] MEDS: CARAFATE LIQUID PO SCH ×4 (01:17→20:02)
[2018-12-04] MEDS: PROTONIX IV SCH ×2 (01:17→14:14)
[2018-12-04] MEDS: MORPHINE IV PRN ×6 (02:26→22:15)
[2018-12-04 06:19] LABS: BASO# 0.01 X1000 (0.0-0.2); BASO% 0.2 % (0.0-0.8); EOS# 0.15 X1000 (0.0-0.7); EOS% 3.7 % (0.0-10.0); HEMOGLOBIN 7.9 g/dL (12.0-16.0); LYMPH# 1.54 X1000 (1.2-3.4); LYMPH% 38.3 % (20.5-51.1); MCH 25.5 PG (27-31); MCHC 31.6 g/dL (33-37); MCV 80.6 FL (81-99); MONO# 0.22 X1000 (0.11-0.59); MONO% 5.5 % (1.7-9.3); MPV 12.2 FL (7.4-10.4); NEUT% 52.3 % (42.2-75.2); PLT 209 X1000 (130-400); WBC 4.02 X1000 (4.8-10.8)
[2018-12-04 06:35] LABS: AGAP 6; ALB/GLOB RATIO 1.2; ALBUMIN 2.7 g/dL (3.5-5.0); ALKALINE PHOSPHATASE 82 U/L (32-104); BUN 12 mg/dL (8-22); CALCIUM 8.3 mg/dL (8.8-10.2); CHLORIDE 111 mmol/L (98-107); CHOLESTEROL 88 mg/dL (0-200); COSMO 279; ESTIMATED GFR > 60; GLUCOSE 123 mg/dL (70-104); GOT 12 U/L (10-30); GPT 7 U/L (10-36); MAGNESIUM 1.7 mg/dL (1.5-2.7); PHOSPHORUS 2.6 mg/dL (2.7-4.5); SODIUM 139 mmol/L (136-145); TCO2 22 mmol/L (25-35); TOTAL BILIRUBIN 0.15 mg/dL (0.20-1.00); TOTAL PROTEIN 4.9 g/dL (6.3-8.3); TRIGLYCERIDES 50 mg/dL (35-135)
[2018-12-04 06:57] LABS: PREALBUMIN 15.7 mg/dL (20-40)
[2018-12-04] MEDS: SODIUM CHLORIDE 0.9% INJ PRN ×3 (07:43→20:02)
[2018-12-04] MEDS: DULCOLAX PR SCH (09:32)
[2018-12-04] MEDS: SODIUM CHLORIDE 0.9% INJ SCH (14:14)
--- NOTE | 2018-12-04 15:37 | PROGRESS NOTE ---
DATE: 12/04/2018 SUBJECTIVE: The patient reports still feeling nauseated, but definitely is getting better. Denies any fever or chills as well. OBJECTIVE: Vital Signs: Temperature 98.5, heart rate 88, respiratory rate 18, blood pressure 133/85, and O2 saturation 100% on room air. General: This is a chronically ill-appearing 43-year- old female lying in bed in no acute distress. Cardiovascular: S1, S2 heard. No murmurs, gallops, or rubs. Regular rate and rhythm. Respiratory: Clear bilaterally to auscultation. No work of breathing or using accessory muscles. Abdomen: Soft, nontender to palpation. Bowel sounds present. No organomegaly. Extremities: No clubbing, cyanosis, or edema. Peripheral pulses present in both legs. Neurological: Patient is alert and oriented x3. Moves 4 extremities. LABORATORY DATA: Reviewed. ASSESSMENT AND PLAN: 1. Intractable nausea and vomiting, resolved. 2. Severe esophageal stricture. The patient is supposed to be seen in [facility] for re-evaluation for that definite treatment for this problem. GI is also following this patient. He will follow recommendations. 3. Gastroparesis. Patient has been started on Reglan. We will continue with the same management. 4. Anemia of chronic disease aware. We will continue to monitor CBC. 5. Diabetes mellitus type 2 stable. We will continue with same management. 6. Disposition. We will continue to monitor this patient closely. cc: Clyde Dominguez MD
[2018-12-04] MEDS: LIPOSYN 20% 500 ML IV SCH (16:56)
[2018-12-04] MEDS: TPN ELECTROLYTES IV SCH ×9 (16:56)
[2018-12-04] MEDS: [UNRECOGNIZED DRUG - OTHER] IV SCH ×9 (16:56)
[2018-12-04] MEDS: POTASSIUM PHOSPHATE IV SCH ×9 (16:56)
[2018-12-04] MEDS: MAGNESIUM SULFATE IV SCH ×9 (16:56)
[2018-12-04] MEDS: AMBIEN PO SCH (20:02)
--- NOTE | 2018-12-04 22:52 | PROVIDER PROGRESS NOTE ---
Progress Note SUBJECTIVE: Patient reports having one episode of NBNB emesis yesterday. She is tolerating clear liquids. No acute overnight events. No fever, CP, SOB. Mild epigastric pain unchanged. Per RN, patient has been seen eating popcorn, crackers, and other solid foods. OBJECTIVE Last Vital Signs Temp 98.3 F 12/04/18 20:00 Pulse 92 H 12/04/18 20:00 Resp 18 12/04/18 16:00 BP 136/67 12/04/18 20:00 Pulse Ox 100 12/04/18 20:00 Height 5 ft 4 in Weight 165 lb 3 oz GEN: awake, alert, NAD HEENT: anicteric, MMM NECK: no JVD, NAD CV: RRR, no murmurs PULM: CTAB, no wheezing ABD: soft ND, mild epigastric TTP, no rebound or guarding EXT: no cce NEURO: nonfocal LABS 12/04/18 12/04/18 05:45 05:45 WBC 4.02 L Hgb 7.9 L Plt Count 209 Sodium 139 Potassium 4.0 Chloride 111 H Carbon Dioxide 22 L BUN 12 Creatinine 1.0 H Glucose 123 H Albumin 2.7 L Prealbumin 15.7 L A/P: Ms. Kaleigh Bobyb is a 43-year-old woman with a past medical history significant for insulin-dependent diabetes complicated by gastroparesis requiring gastric pacemaker placement, GERD with LA grade D esophagitis, severe esophageal stricture, gastric and duodenal ulcers, who represents with recurrent nausea and vomiting likely from known esophageal stricture. #N/V: improved: continue antiemetics and liquid diet #Protein calorie malnutrition: on TPN per nutrition; continue Glucerna at home TID #Esophageal stricture: patient will follow-up early December with [facility] for repeat EGD for dilation #Gastroparesis: continue reglan, small frequent meals #PUD: continue PPI BID #Anemia: multifactorial; esophagitis, gastric and duodenal ulcers; trending H/H Will follow with you. Please call with questions
[2018-12-05] MEDS: SODIUM CHLORIDE 0.9% INJ SCH ×2 (00:48→12:08)
[2018-12-05] MEDS: PROTONIX IV SCH ×2 (00:48→12:08)
[2018-12-05] MEDS: HUMULIN R SUBQ SCH ×7 (00:56→20:55)
[2018-12-05] MEDS: PHENERGAN IV PRN ×4 (01:14→17:57)
[2018-12-05] MEDS: MORPHINE IV PRN ×5 (02:11→21:03)
[2018-12-05] MEDS: CARAFATE LIQUID PO SCH ×4 (02:20→20:55)
[2018-12-05] MEDS: REGLAN IV SCH ×4 (02:20→20:55)
[2018-12-05 06:11] LABS: ALBUMIN 2.9 g/dL (3.5-5.0); CALCIUM 8.3 mg/dL (8.8-10.2); CREATININE 1.3 mg/dL (0.5-0.9); MAGNESIUM 1.8 mg/dL (1.5-2.7); PHOSPHORUS 2.8 mg/dL (2.7-4.5); POTASSIUM 4.1 mmol/L (3.5-5.1)
[2018-12-05] MEDS: SODIUM CHLORIDE 0.9% INJ PRN ×3 (06:47→17:57)
[2018-12-05] MEDS: DULCOLAX PR SCH (08:13)
--- NOTE | 2018-12-05 08:39 | PROVIDER DOCUMENTATION ---
This chart was entered by Kylah Santoro Scribe, acting as scribe for Adela Cormier MD. HPI-Abdominal Pain/GI Problem - General Chief Complaint: Nausea/Vomiting Stated Complaint: N/V/ABD PAIN Time Seen by Provider: 11/27/18 12:43 Source: patient, family (son) Allergies/Adverse Reactions: Patient Allergies Allergy/AdvReac Type Severity Reaction Status Date / Time No Known Allergies Allergy Verified 11/13/18 20:04 Home Medications: Home Medication List Medication Instructions Recorded Confirmed Last Taken Type Zolpidem [Ambien] 10 mg PO QHS #20 tab 10/17/18 11/13/18 1 Day Ago Rx ~10/31/18 Ondansetron [Zofran] 4 mg PO Q6H PRN PRN #30 tab 11/03/18 11/13/18 Unknown Rx Pantoprazole [Protonix] 40 mg PO BID #60 tab 11/03/18 11/13/18 Unknown Rx Promethazine [Phenergan] 25 mg PO Q6H PRN PRN #30 tablet 11/03/18 11/13/18 Unknown Rx Sucralfate [Carafate Liquid] 1 gm PO Q6HR #14 oz 11/03/18 11/13/18 Unknown Rx - History of Present Illness-ABD Nature of Presenting Problems: 43 yobf presents to the ed with c/o abdominal pain with n/v onset this am Abdominal Pain Onset Location: reports: generalized abdomen Pain Radiation: reports: no radiation Quality of Pain: reports: cramping Severity in ED: reports: moderate Onset/Duration: reports: this morning Timing: reports: still present, intermittent Activities at Onset: reports: light activity Modifying Factors: improves with: nothing. worse with: eating Associated Symptoms: reports: fatigue, loss of appetite, malaise, nausea, vomiting. denies: back/neck pain, cough, fever/chills, headaches Last BM: last night Dark Stools Present?: reports: none noticed Rectal Bleeding: reports: none # of Diarrhea Episodes: 0 Rectal Pain: reports: none # of Vomiting Episodes: 6 Emesis Description: reports: other (anything po) Bruising or Bleeding Gums?: No Similar Symptoms Previously?: Yes Recently seen or treated by another doctor?: Yes Review of Systems - Adult - REVIEW OF SYSTEMS - ADULT Constitutional: reports: eduardo. denies: chills, fever Eyes: denies: blurred vision, double vision Ears, Nose, Mouth & Throat: reports: no symptoms reported Cardiovascular: denies: chest pain, palpitations Respiratory: reports: no symptoms reported. denies: cough, shortness of breath, wheezing Gastrointestinal: reports: see HPI, abdominal pain, nausea, poor appetite, vomiting Genitourinary: reports: no symptoms reported Musculoskeletal: denies: back pain, neck pain Integumentary: reports: no symptoms reported Neurological: reports: no symptoms reported Psychiatric: reports: no symptoms reported Endocrine: reports: no symptoms reported Hematologic/Lymphatic: reports: no symptoms reported Allergic/Immunologic: reports: no symptoms reported All Other Systems: Reviewed and Negative Past History - Adult - PAST MEDICAL HISTORY-ADULT Review of Records: reports: Old Records Reviewed, Nursing Assessment Review, Medications Reviewed, Social history reviewed & non-contributory. Major Childhood Illnesses: reports: denies history Cardiovascular: reports: HTN, hyperlipidemia Respiratory: reports: denies history Gastrointestinal: reports: GERD (with esophagitis and stenosis), GI bleed, ulcer , other (diabetic gastroparesis, erosive gastritis and esophagitis; gastric pacemaker) Obstetrical/Gynecological: reports: denies history Genitourinary: reports: kidney disease, other (ammenorrhea for 1 year) Musculoskeletal: reports: denies history Hand Dominance: Right Handed Neurological: reports: other (DM neuropathy) Psychiatric: reports: anxiety, depression Endocrine/Immune: reports: anemia, Diabetes Diabetes Type: Type 2 Other Conditions: reports: denies history Additional History: frequent ER visits - PRIOR SURGERIES/PROCEDURES Surgical/Procedure History: reports: cholecystectomy, indwelling device (Por tacath), other (gastric stimulator) - IMMUNIZATION STATUS Childhood Immunizations: See Nurse Assessment Flu Vaccine: See Nurse Assessment - FAMILY HISTORY Family History: reviewed, not pertinent - SOCIAL HISTORY Smoking: denies Substance Use: denies Living Situation: family Physical Exam-General - PHYSICAL EXAM-ADULT Initial Vital Signs Reviewed: Yes - CONSTITUTIONAL General Appearance: alert, thin. negative: appears well - EYES Eyes: PERRL/EOMI, pale conjunctivae - HEAD, EARS, NOSE, MOUTH & THROAT HENMT: normocephalic/atraumatic. negative: moist mucous membranes (dry) - NECK Neck: non-tender, full range of motion, supple, normal inspection - RESPIRATORY Respiratory: chest non-tender, lungs clear, normal breath sounds - CARDIOVASCULAR Cardiovascular: normal peripheral pulses, tachycardia (111) - GASTROINTESTINAL (ABDOMEN) Abdominal Exam: soft, abnormal bowel sounds (hyper), guarding, tenderness (generalized), other (n/v on exam). negative: distended, rigid, rebound - LYMPHATIC Lymphatic: no adenopathy - MUSCULOSKELETAL Back Exam: normal inspection, no CVA tenderness, no vertebral tenderness Extremity: normal range of motion, no pedal edema, no calf tenderness, normal capillary refill, pelvis stable - SKIN Integumentary: normal color, normal turgor, warm/dry - NEUROLOGIC Neurologic: grossly normal - PSYCHIATRIC Psych/Mental Status: normal mood/affect, normal thought content, normal thought process, oriented x 3 Progress - PLAN OF CARE/RESULTS Progress/Plan/Lab Results: Vital Signs - 8 hr 11/27/18 11:03 Temperature 96.9 F L Pulse Rate 111 H Respiratory Rate 20 Blood Pressure 135/101 O2 Sat by Pulse Oximetry 100 Orders Category Date Time Status Promethazine [Phenergan] Med 11/27/18 12:46 Once 12.5 mg IV NOW ONE Sodium Chloride 0.9% Med 11/27/18 12:46 Once 10 ml INJ NOW ONE Result Diagrams: 11/27/18 13:30 11/27/18 13:30 - REASSESSMENT Reassessment #1 Time Reassessed: 12:48 Status: unchanged Reassessment #2 Time Reassessed: 13:59 (n/v improved) Status: improving Reassessment #3 Time Reassessed: 16:35 (pt is sleeping) Status: unchanged - CONSULTS/PCP/HOSPITALIST Notification #1 *Consult/PCP/Hospitalist*: [facility] Time Discussed: 16:39 Reason/Comments: no floor beds admit local #2 Consult: hospitalist dr goodrich Time Discussed: 16:41 Reason/Comments: n/v Consult Disposition: Admit Departure - Departure Date of Disposition Decision: 11/27/18 Time of Disposition Decision: 16:36 DIAGNOSIS: Gastroparesis, Dehydration, Hypokalemia Abdominal pain Qualifiers: Abdominal location: generalized Qualified Code(s): R10.84 - Generalized abdominal pain Nausea & vomiting Qualifiers: Vomiting type: unspecified Vomiting Intractability: non-intractable Qualified Code(s): R11.2 - Nausea with vomiting, unspecified Disposition: ADMITTED INPATIENT 09 Certified Medical Emergency: Emergent Condition: Stable Additional Freetext Instructions: ED Follow Up Instructions: You have been treated by a care provider in the Emergency Department. These instructions are being provided to you so you can have an understanding of how to care for yourself upon discharge. Upon discharge from the Emergency Department, you are responsible for making arrangements for follow-up care by a physician of your choice. Take all prescribed medications as directed. Return to the Emergency Department immediately for any new or worsening symptoms. You may call the Physician Referral phone number at [phone] to obtain a list of Physicians who are taking new patients. Referrals and Follow-Ups: None,PCP [Primary Care Provider] - - Critical Care Note This patient required my direct & personal management of CC.: Yes Total Time (mins): 37 Critical Care Statement: This patient required my direct personal management to treat or rule out processes, the absence of which, could potentiallly result in sudden, clinically significant life or limb threatening deterioration. Attestation - Physician/ GAUDENCIO Attestation Patient care was provided by Advanced Practice Provider:: No The physician spent face to face time with patient:: Yes Advanced Practice Provider documentation review:: Supervising physician onsite and consulted in the evaluation and care of this patient. The physician did have a face to face encounter with the patient. This chart was documented by the indicated scribe, (Kylah Santoro Scribe) and accurately reflects the services I performed and decisions made by me, Adela Cormier MD, as attested by the provider's signature.
[2018-12-05] MEDS ORDERED: D10W 1,000 ML IV SCH (13:00)
--- NOTE | 2018-12-05 14:49 | PROGRESS NOTE ---
DATE: 12/05/2018 SUBJECTIVE: Patient reported start feeling nauseated again, and she needed to have increased the doses of Phenergan to 25 mg IV q.4 h. OBJECTIVE: Vital Signs: Temperature 98.7 degrees, heart rate 114, respiratory rate 18, blood pressure 140/60, O2 saturation 100% on room air. General examination: This is a chronically ill- appearing 43-year-old female, lying in bed, in no acute distress. Cardiovascular: S1, S2 heard. No murmurs, gallops, or rubs. Regular rate and rhythm. Respiratory: Clear bilaterally to auscultation. No work of breathing or using accessory muscles. Abdomen: Soft, nondistended, a little bit tender to palpation in the epigastric area. There are no signs of peritoneal irritation. Extremities: No clubbing, cyanosis, or edema. Peripheral pulses present in both legs. Neurological: Patient is alert and oriented x3. Moves 4 extremities. LABORATORY DATA: Reviewed. There is no be no CBC from today, but BMP shows creatinine 1.3 with chloride 110, carbon dioxide 23. ASSESSMENT AND PLAN: 1. Intractable nausea and vomiting. We had to readjust the doses of nausea medication, considering that this patient was not responding properly to 12.5 mg of Phenergan and Reglan at the same time. I think at this time we can try to use Compazine IV and see if that helps. 2. Severe esophageal stricture. We have talked with Dr. Cano, and the plan is to try to send her to [facility] . There is not an option to send her home with TPN because of insurance coverage. The patient has [facility] so another option is to send her to that hospital whenever they have a bed available. At this point, we will continue to monitor this patient here closely. 3. Severe gastroparesis status post gastric pacemaker placement. The patient is still nauseated, I think, mostly because of the esophageal stricture rather than gastroparesis. In any case, we will continue to monitor. 4. Diabetes mellitus, type 2. We will continue with sliding scale insulin and actually before meals and also at bedtime. 5. Hypertension. Blood pressure is definitely much higher because she was not able to take some of her blood pressure medications. We will continue to monitor. DISPOSITION: At this point, we are planning to keep this patient in the hospital. We will continue with TPN. cc: Clyde Dominguez MD [facility]ENTERN[facility]asia
[2018-12-05] MEDS ORDERED: TPN ELECTROLYTES 20 ML, MAGNESIUM SULFATE 5 MEQ, POTASSIUM CHLORIDE 10 MEQ, POTASSIUM P... IV SCH ×9 (16:00)
[2018-12-05] MEDS: COMPAZINE IV PRN (17:00)
[2018-12-05] MEDS: LIPOSYN 20% 500 ML IV SCH (17:01)
[2018-12-05] MEDS: AMBIEN PO SCH (20:55)
--- NOTE | 2018-12-05 21:59 | PROVIDER PROGRESS NOTE ---
Progress Note SUBJECTIVE: patient developed worsening NBNB emesis and periumbilical/epigastric pain. No hematemesis. OBJECTIVE Last Vital Signs Temp 98.8 F 12/05/18 19:44 Pulse 94 H 12/05/18 19:44 Resp 16 12/05/18 19:44 BP 101/66 12/05/18 19:44 Pulse Ox 100 12/05/18 19:44 Height 5 ft 4 in Weight 151 lb GEN: awake, alert, NAD HEENT: anicteric, MMM NECK: no JVD, NAD CV: RRR, no murmurs PULM: CTAB, no wheezing ABD: soft ND, moderate epigastric TTP, no rebound or guarding EXT: no cce NEURO: nonfocal LABS 12/04/18 12/05/18 05:45 05:35 WBC 4.02 L Hgb 7.9 L Plt Count 209 Sodium 141 Potassium 4.1 Chloride 110 H Carbon Dioxide 23 L BUN 14 Creatinine 1.3 H Glucose 236 H D Calcium 8.3 L Phosphorus 2.8 Magnesium 1.8 Albumin 2.9 L A/P: Ms. Kaleigh Bobby is a 43-year-old woman with a past medical history significant for insulin-dependent diabetes complicated by gastroparesis req uiring gastric pacemaker placement, GERD with LA grade D esophagitis, severe esophageal stricture, gastric and duodenal ulcers, who represents with recurrent nausea and vomiting likely from known esophageal stricture. #N/V: improved: continue antiemetics; dial back to clear liquids as tolerated #Protein calorie malnutrition: on TPN per nutrition; continue Glucerna at home TID #Esophageal stricture: patient will follow-up early December with [facility] for repeat EGD for dilation next ; discussed with Dr. Ford at [facility] #Gastroparesis: continue reglan, small frequent meals; increase phenergan to 2 5mg QID as needed #PUD: continue PPI BID #Anemia: multifactorial; no overt bleeding; esophagitis, gastric and duodenal ulcers; trending H/H Will follow with you. Please call with questions
[2018-12-06] MEDS: PHENERGAN IV PRN ×4 (00:33→18:31)
[2018-12-06] MEDS: SODIUM CHLORIDE 0.9% INJ PRN ×2 (00:33→06:36)
[2018-12-06] MEDS: MORPHINE IV PRN ×6 (01:08→21:43)
[2018-12-06] MEDS: PROTONIX IV SCH ×2 (01:08→12:34)
[2018-12-06] MEDS: SODIUM CHLORIDE 0.9% INJ SCH ×2 (01:08→12:34)
[2018-12-06] MEDS: CARAFATE LIQUID PO SCH ×4 (01:09→21:48)
[2018-12-06] MEDS: HUMULIN R SUBQ SCH ×3 (01:09→09:16)
[2018-12-06] MEDS: REGLAN IV SCH ×4 (02:35→21:48)
[2018-12-06 07:08] LABS: ALBUMIN 2.8 g/dL (3.5-5.0); CALCIUM 8.3 mg/dL (8.8-10.2); CREATININE 1.5 mg/dL (0.5-0.9); MAGNESIUM 1.8 mg/dL (1.5-2.7); PHOSPHORUS 2.2 mg/dL (2.7-4.5); POTASSIUM 3.8 mmol/L (3.5-5.1)
[2018-12-06] MEDS: DULCOLAX PR SCH (08:44)
[2018-12-06] MEDS: HUMALOG SUBQ SCH ×3 (10:54→21:56)
--- NOTE | 2018-12-06 12:16 | GASTROENTEROLOGY PROGRESS NOTE ---
DATE: 12/06/2018 SUBJECTIVE: Resting in bed. She is feeling better. She denies any fevers, rigors, chills. She denies any vomiting today. She had her last bowel on 12/03. She is on TPN. OBJECTIVE: Vital signs: Temperature 99.1 degrees, pulse of 90, respiratory rate 16, blood pressure 170/81, satting 100% on room air. General Appearance: Thinly built, lying in bed in no acute distress. HEENT: Pale conjunctivae. No icterus. Neck: Supple. Abdomen: Soft, nontender, nondistended. No guarding of lower extremities. No cyanosis, clubbing. Neurologic: Neuro-pitt, alert, awake, oriented x3. LABS: Hemoglobin and hematocrit is 7.9 and 25, white count of 4.02, platelet count of 209. Sodium 137, potassium 3.8, chloride 107, bicarbonate of 22, anion gap of 8. BUN of 21, creatinine 1.5, glucose of 309, calcium is 8.3, calcium is 8.3, phosphorus is 2.2, magnesium 1.8, albumin of 3.8. IMPRESSION AND PLAN: 1. Insulin-dependent diabetes complicated with gastroparesis requiring gastric pacemaker replacement. She will continue on small frequent meals. Continue Reglan. She is on Phenergan 25 mg four times daily as needed. 2. Esophageal stricture. Dr. Cano spoke with Dr. Ford at [facility], and she will be scheduled for esophagogastroduodenoscopy with dilation next at [facility]. 3. Protein calorie malnutrition. She is on total parenteral nutrition. She can use Glucerna at home 3 times daily. 4. Nausea and vomiting is improved with antiemetics and being on nothing by mouth. She can still take ice chips and clear liquids as tolerated. 5. She has history of severe esophageal stricture, gastric and duodenal ulcers. She will continue proton pump inhibitors twice daily for now. 6. Anemia. Continue to watch for now, transfuse as needed. 7. Bowel regimen with Dulcolax. Above plans discussed with the patient and nursing staff and all questions were answered. Please call us with any further questions. cc: MD Clyde Villa MD
--- NOTE | 2018-12-06 14:34 | PROGRESS NOTE ---
DATE: 12/06/2018 SUBJECTIVE: Patient reports less nauseated today. Denies any other complaints. As per nursing staff, her sugar has been really high. OBJECTIVE: Vital Signs: Temperature 99.3, heart rate 96, respiratory rate 18, blood pressure 107/67. O2 sat 100% on room air. General: This is a chronically ill-appearing 43-year-old female lying in bed in no acute distress. Cardiovascular: S1, S2 heard. No murmurs, gallops or rubs. Regular rate and rhythm. Respiratory: Clear bilaterally to auscultation. No work of breathing or using accessory muscles. Abdomen: Soft, nontender to palpation. There is no sign of peritoneal irritation. Extremities: No clubbing, cyanosis or edema. Peripheral pulses present in both legs. Neurologic: Patient alert oriented x 3. Moves 4 extremities. LABORATORY DATA: BMP reveals creatinine 1.5, with blood sugar 309. ASSESSMENT AND PLAN: 1. Intractable nausea and vomiting. That condition is getting better today. She is on 25 mg of Phenergan and Reglan IV at the same time. Also, Compazine p.r.n. We will continue with same management. 2. Severe esophageal stricture. GI team here has communicated with Dr. Ford from [facility]. She will be scheduled for EGD with dilatation next at [facility]. In the meantime, she will continue to stay here with TPN. 3. Protein-calorie malnutrition. Patient is on total parenteral nutrition by now. 4. Insulin-dependent diabetes mellitus with gastroparesis. The patient has been started on insulin sliding scale. If blood sugar continues to get higher, we will start basal insulin, in this case Lantus or Levemir. cc: Clyde Dominguez MD
[2018-12-06] MEDS ORDERED: TPN ELECTROLYTES 20 ML, MAGNESIUM SULFATE 5 MEQ, POTASSIUM CHLORIDE 10 MEQ, POTASSIUM P... IV SCH ×9 (16:00)
[2018-12-06] MEDS: LIPOSYN 20% 500 ML IV SCH (17:58)
[2018-12-06] MEDS: AMBIEN PO SCH (21:56)
[2018-12-07] MEDS: PHENERGAN IV PRN ×4 (01:17→18:11)
[2018-12-07] MEDS: CARAFATE LIQUID PO SCH ×4 (01:22→21:03)
[2018-12-07] MEDS: PROTONIX IV SCH ×2 (01:22→14:21)
[2018-12-07] MEDS: SODIUM CHLORIDE 0.9% INJ SCH ×2 (01:22→14:21)
[2018-12-07] MEDS: REGLAN IV SCH ×4 (01:22→21:03)
[2018-12-07] MEDS: MORPHINE IV PRN ×5 (01:43→18:59)
[2018-12-07] MEDS: SODIUM CHLORIDE 0.9% INJ PRN (06:47)
[2018-12-07] MEDS: HUMALOG SUBQ SCH ×4 (06:49→20:55)
[2018-12-07 06:52] LABS: ALBUMIN 2.7 g/dL (3.5-5.0); CALCIUM 8.1 mg/dL (8.8-10.2); CREATININE 1.5 mg/dL (0.5-0.9); PHOSPHORUS 2.6 mg/dL (2.7-4.5); POTASSIUM 4.5 mmol/L (3.5-5.1)
[2018-12-07] MEDS: DULCOLAX PR SCH (10:04)
--- NOTE | 2018-12-07 13:49 | PROGRESS NOTE ---
DATE: 12/07/2018 SUBJECTIVE: The patient reports feeling a little bit nauseated. His sugar has been high recently, more than yesterday. OBJECTIVE: Vital Signs: Temperature 98.2 degrees, heart rate 97, respiratory rate 16, blood pressure 122/79, O2 saturation 100% on room air. General: This is a chronically ill-appearing, 43-year-old female lying in bed, in no acute distress. Cardiovascular: S1, S2 heard. No murmurs, gallops, or rubs. Regular rate and rhythm. Respiratory: Clear bilaterally to auscultation. No work of breathing or using accessory muscles. Abdomen: Soft, nontender to palpation. Bowel sounds present. No organomegaly. Extremities: No clubbing, cyanosis, or edema. Peripheral pulses present in both legs. Neurological: The patient is alert and oriented x3. Moves 4 extremities. LABORATORY DATA: Reviewed. ASSESSMENT AND PLAN: 1. Intractable nausea and vomiting. The patient continues to be on Phenergan and Reglan for this condition. Sometimes she has good days. Sometimes she is more nauseated. We will continue with the same management. 2. Severe esophageal stricture. That is basically the reason why this patient is sick. Gastroenterology team has been coordinating with Dr. Jaramillo from [facility] to have a procedure done. It is going to be on at [facility]. In the meantime, this patient needs to stay in the hospital because she requires TPN according to Gastroenterology. 3. Protein-calorie malnutrition. As we mentioned before, we will continue with parenteral nutrition right now. 4. Insulin-dependent diabetes mellitus with gastroparesis. The patient is going to be started on his basal insulin, in this case Lantus that she uses at home. She usually used 12 but considering that she is reaching 400, we are going to increase to 15 units daily and see how she does. cc: Clyde Dominguez MD
[2018-12-07] MEDS: BASAGLAR SUBQ SCH (14:21)
[2018-12-07] MEDS ORDERED: INSULIN PEN NEEDLES ONE (14:23)
[2018-12-07] MEDS: TPN ELECTROLYTES 20 ML, MAGNESIUM SULFATE 5 MEQ, POTASSIUM CHLORIDE 10 MEQ, POTASSIUM P... IV SCH ×8 (17:02)
[2018-12-07] MEDS: LIPOSYN 20% 500 ML IV SCH (17:03)
[2018-12-07] MEDS: AMBIEN PO SCH (21:03)
--- NOTE | 2018-12-07 23:56 | PROVIDER PROGRESS NOTE ---
Progress Note SUBJECTIVE: No acute overnight events. No N/V/F. Patient reports swallowing liquids is a bit tougher than prior. No abdominal pain. +BM OBJECTIVE: Last Vital Signs Temp 98.6 F 12/07/18 23:43 Pulse 91 H 12/07/18 23:43 Resp 16 12/07/18 23:43 BP 100/66 12/07/18 23:43 Pulse Ox 100 12/07/18 23:43 Height 5 ft 4 in Weight 143 lb 5 oz GEN: awake, alert, NAD HEENT: anicteric, MMM NECK: supple, no JVD PULM: CTAB ABD: soft NT/ND, NABS EXT: no cce NEURO: nonfocal LABS: 12/07/18 05:55 Sodium 140 Potassium 4.5 D Chloride 109 H Carbon Dioxide 24 L BUN 27 H Creatinine 1.5 H Glucose 356 H A/P: Ms. Kaleigh Bobby is a 43-year-old woman with a past medical history significant for insulin-dependent diabetes complicated by gastroparesis requiring gastric pacemaker placement, GERD with LA grade D esophagitis, severe esophageal stricture, gastric and duodenal ulcers, who represents with recurrent nausea and vomiting likely from known esophageal stricture. #N/V: improved: continue antiemetics; continue clear liquid diet for comfort #Protein calorie malnutrition: on TPN per nutrition #Esophageal stricture: patient to have repeat EGD next at [facility] with Dr. Ford for possible dilation; appointment will need to be confirmed with B #Gastroparesis: continue antiemetics as needed #PUD: continue PPI BID #Anemia: multifactorial; no overt bleeding; esophagitis, gastric and duodenal ulcers; trending H/H #CATERINA on CKD: Cr stable; avoid nephrotoxic agents #IDDM2: glucose more uncontrolled; continue SSI Will follow with you. Please call with questions
[2018-12-08] MEDS: SODIUM CHLORIDE 0.9% INJ SCH ×2 (00:06→17:34)
[2018-12-08] MEDS: SODIUM CHLORIDE 0.9% INJ PRN (00:06)
[2018-12-08] MEDS: PHENERGAN IV PRN ×4 (00:07→18:12)
[2018-12-08] MEDS: PROTONIX IV SCH ×2 (00:08→17:34)
[2018-12-08] MEDS: MORPHINE IV PRN ×5 (01:03→20:15)
[2018-12-08] MEDS: REGLAN IV SCH ×4 (01:14→20:15)
[2018-12-08] MEDS: CARAFATE LIQUID PO SCH ×4 (01:14→20:15)
[2018-12-08] MEDS: HUMALOG SUBQ SCH ×4 (06:38→21:06)
[2018-12-08 06:43] LABS: CALCIUM 8.4 mg/dL (8.8-10.2); CREATININE 1.5 mg/dL (0.5-0.9); MAGNESIUM 2.1 mg/dL (1.5-2.7); POTASSIUM 4.6 mmol/L (3.5-5.1)
[2018-12-08] MEDS: COMPAZINE IV PRN (08:23)
[2018-12-08] MEDS: DULCOLAX PR SCH (08:23)
[2018-12-08] MEDS: BASAGLAR SUBQ SCH ×2 (08:23→21:06)
--- NOTE | 2018-12-08 13:44 | PROGRESS NOTE ---
DATE: 12/08/2018 SUBJECTIVE: Patient reports feeling better. Less nauseated today. OBJECTIVE: Vital Signs: Temperature 97.9 degrees, heart rate 88, respiratory rate 12, blood pressure 93/50, O2 saturation 96% on room air. General examination: This is a chronically ill- appearing, 43-year-old female, lying in bed in no acute distress. Cardiovascular exam: S1, S2 heard. No murmurs, gallops, or rubs. Regular rate and rhythm. Respiratory exam: Clear bilaterally to auscultation. No work of breathing or using accessory muscles. Abdomen: Soft, nontender to palpation. Bowel sounds present. No organomegaly. Extremities: No clubbing, cyanosis, or edema. Peripheral pulses present in both legs. Neurological exam: Patient alert, oriented x3. Moves 4 extremities. LABORATORY DATA: Reviewed. ASSESSMENT AND PLAN: 1. Intractable nausea and vomiting, that is secondary to esophageal stricture. Patient receiving Phenergan and Reglan. Patient receiving total parenteral nutrition. At this point, the plan is to have dilatation that needs to be done at [facility]. Dr. Ford is his primary GI over there. She had an appointment on next there. The patient needs to continue with total parenteral nutrition according to GI. We have not heard from [facility] in [place] if they have beds to take this patient also to their hospital. In any case, on Monday we will try to send her to [facility] if we do not hear from the [facility]. 2. Protein-calorie malnutrition. As we mentioned before, patient needs to be on total parenteral nutrition. 3. Insulin-dependent diabetic mellitus with gastroparesis. His blood sugar continued to be really high in the range of 300 and above. I am going to double the dose of Lantus to 15 units daily to twice daily, and we will continue to monitor this patient closely. cc: Clyde Dominguez MD
[2018-12-08] MEDS: LIPOSYN 20% 500 ML IV SCH (17:33)
[2018-12-08] MEDS: TPN ELECTROLYTES 20 ML, MAGNESIUM SULFATE 5 MEQ, POTASSIUM CHLORIDE 10 MEQ, POTASSIUM P... IV SCH ×8 (17:33)
[2018-12-08] MEDS: AMBIEN PO SCH (20:15)
--- NOTE | 2018-12-08 22:40 | PROVIDER PROGRESS NOTE ---
Progress Note SUBJECTIVE: No acute overnight events. Patient reports scant N/V. She says that it is tougher to tolerate liquids. OBJECTIVE: Last Vital Signs Temp 98.7 F 12/08/18 19:41 Pulse 100 H 12/08/18 19:41 Resp 16 12/08/18 19:41 BP 105/66 12/08/18 19:41 Pulse Ox 100 12/08/18 19:41 Height 5 ft 4 in Weight 148 lb 5 oz GEN: awake, alert, NAD HEENT: anicteric, MMM, she is pocketing saliva in her mouth NECK: supple, no JVD PULM: CTAB ABD: soft ND, NABS, mild TTP throughout EXT: no cce NEURO: nonfocal LABS: 12/07/18 05:55 Sodium 140 Potassium 4.5 D Chloride 109 H Carbon Dioxide 24 L BUN 27 H Creatinine 1.5 H Glucose 356 H A/P: Ms. Kaleigh Bobby is a 43-year-old woman with a past medical history significant for insulin-dependent diabetes complicated by gastroparesis requiring gastric pacemaker placement, GERD with LA grade D esophagitis, severe esophageal stricture, gastric and duodenal ulcers, who represents with recurrent nausea/vomiting and dysphagia 2/2 known esophageal stricture. She has worsening dysphagia to liquids. #Dysphagia: sips of clears for comfort #Esophageal stricture: patient to have repeat EGD next at [facility] with Dr. Ford for possible dilation; appointment will need to be confirmed with [facility] #N/V: continue antiemetics; continue clear liquid diet for comfort #Protein calorie malnutrition: on TPN per nutrition #Gastroparesis: continue antiemetics as needed #PUD: continue PPI BID #Anemia: multifactorial; no overt bleeding; esophagitis, gastric and duodenal ulcers; check H/H #CATERINA on CKD: Cr stable; avoid nephrotoxic agents #IDDM2: glucose more uncontrolled; continue SSI Will follow with you. Please call with questions
[2018-12-08 23:27] LABS: BASO# 0.03 X1000 (0.0-0.2); BASO% 0.5 % (0.0-0.8); EOS% 3.1 % (0.0-10.0); HEMATOCRIT 28.4 % (37.0-47.0); HEMOGLOBIN 8.8 g/dL (12.0-16.0); LYMPH# 1.93 X1000 (1.2-3.4); LYMPH% 30.1 % (20.5-51.1); MONO# 0.52 X1000 (0.11-0.59); MONO% 8.1 % (1.7-9.3); NEUT# 3.74 X1000 (1.4-6.5); NEUT% 58.2 % (42.2-75.2); PLT 202 X1000 (130-400); RBC 3.38 XMIL (4.2-5.4); RDW 17.9 % (11.5-14.5); WBC 6.42 X1000 (4.8-10.8)
[2018-12-09] MEDS: SODIUM CHLORIDE 0.9% INJ SCH ×2 (00:48→13:32)
[2018-12-09] MEDS: COMPAZINE IV PRN (00:48)
[2018-12-09] MEDS: PROTONIX IV SCH ×2 (00:48→13:31)
[2018-12-09] MEDS: MORPHINE IV PRN ×4 (00:49→20:28)
[2018-12-09] MEDS: REGLAN IV SCH ×4 (02:30→20:30)
[2018-12-09] MEDS: CARAFATE LIQUID PO SCH ×4 (02:30→20:29)
[2018-12-09] MEDS: PHENERGAN IV PRN ×3 (03:18→15:57)
[2018-12-09] MEDS ORDERED: INSULIN PEN NEEDLES ONE (06:24)
[2018-12-09] MEDS: HUMALOG SUBQ SCH ×4 (06:25→22:15)
[2018-12-09 07:10] LABS: ALBUMIN 3.3 g/dL (3.5-5.0); CALCIUM 8.5 mg/dL (8.8-10.2); CREATININE 1.7 mg/dL (0.5-0.9); MAGNESIUM 2.2 mg/dL (1.5-2.7); PHOSPHORUS 3.3 mg/dL (2.7-4.5); POTASSIUM 4.4 mmol/L (3.5-5.1)
[2018-12-09] MEDS: BASAGLAR SUBQ SCH ×2 (08:57→22:15)
[2018-12-09] MEDS: DULCOLAX PR SCH (08:58)
[2018-12-09] MEDS ORDERED: BASAGLAR SUBQ ONE (11:06)
--- NOTE | 2018-12-09 12:37 | PROVIDER PROGRESS NOTE ---
Progress Note SUBJECTIVE: No acute overnight events. Afebrile. No CP, SOB, abdominal pain. +BM. Per RN, patient is vomiting all liquids. Patient admits that swallowing liquids has become more difficult OBJECTIVE: Last Vital Signs Temp 98.2 F 12/09/18 12:28 Pulse 98 H 12/09/18 12:28 Resp 20 12/09/18 12:28 BP 125/90 12/09/18 12:28 Pulse Ox 100 12/09/18 12:28 Height 5 ft 4 in Weight 148 lb 2 oz GEN: awake, alert, NAD HEENT: anicteric, MMM, she is pocketing saliva in her mouth NECK: supple, no JVD PULM: CTAB ABD: soft ND, NABS, mild TTP throughout EXT: no cce NEURO: nonfocal LABS: 12/07/18 12/08/18 12/08/18 05:55 05:52 06:17 Sodium 140 143 Potassium 4.5 D 4.6 Chloride 109 H 110 H Carbon Dioxide 24 L 25 BUN 27 H 31 H Creatinine 1.5 H 1.5 H Glucose 356 H 314 H POC Glucose 312 H Albumin 3.0 L 12/09/18 05:51 Sodium 144 Potassium 4.4 Chloride 112 H Carbon Dioxide 22 L BUN 34 H Creatinine 1.7 H Glucose 334 H POC Glucose Albumin 3.3 L A/P: Ms. Kaleigh Bobby is a 43-year-old woman with a past medical history significant for insulin-dependent diabetes complicated by gastroparesis requiring gastric pacemaker placement, GERD with LA grade D esophagitis, severe esophageal stricture, gastric and duodenal ulcers, who represents with recurrent nausea/vomiting and dysphagia 2/2 known esophageal stricture. She has worsening dysphagia to liquids. I am concerned that she has a food impaction given her worsening symptoms and since she has been witnessed during this hospitalization eating solid food. #Dysphagia: make NPO, mouth swaps for comfort; plan for EGD tomorrow to assess for food impaction with Dr. Haq - will start IVFs #Esophageal stricture: consider transfer to [facility] for further treatment; outpatient EGD was planned for at [facility] with Dr. Ford for possible dilation; appointment will need to be confirmed with [facility] #N/V: continue antiemetics prn #Protein calorie malnutrition: on TPN per nutrition #Gastroparesis: continue antiemetics as needed #PUD: continue PPI BID #Anemia: multifactorial; stable hgb; no overt bleeding; esophagitis, gastric and duodenal ulcers #CATERINA on CKD: Cr stable; avoid nephrotoxic agents #IDDM2: glucose more uncontrolled; continue SSI Will follow with you. Please call with questions
--- NOTE | 2018-12-09 13:03 | PROGRESS NOTE ---
DATE: 12/09/2018 SUBJECTIVE: Patient reports that she is not able to pass even saliva. She is feeling more choking on liquids. OBJECTIVE: Vital Signs: Temperature 98.2 degrees, heart rate 98, respiratory rate 20, blood pressure 125/90, O2 saturation 100% on room air. General Examination: This is a chronically ill- appearing 43-year-old female, lying in bed, in no acute distress. Cardiovascular: S1, S2 heard. No murmurs, gallops, or rubs. Regular rate and rhythm. Respiratory: Clear bilaterally to auscultation. No work of breathing or using accessory muscles. Abdomen: Soft, nontender to palpation. Bowel sounds present. No organomegaly. Extremities: No clubbing, cyanosis, or edema. Peripheral pulses present in both legs. Neurological: Patient is alert and oriented x3. Moves 4 extremities. LABORATORY DATA: Reviewed. ASSESSMENT AND PLAN: 1. Intractable nausea and vomiting, secondary to esophageal stricture. There is a suspicion for possible food impaction. We have notified the nurses that this patient was getting food from outside. In order to evaluate this patient properly, Gastroenterology is planning to do an endoscopy tomorrow. 2. Protein-calorie malnutrition. Patient is on TPN. 3. Uncontrolled diabetes mellitus, type 2. Because of the TPN, blood sugar has been really high. We will continue with Lantus, but we are going to increase the doses to 25 units twice daily. cc: Clyde Dominguez MD MTDD
[2018-12-09] MEDS: TPN ELECTROLYTES 20 ML, MAGNESIUM SULFATE 5 MEQ, POTASSIUM CHLORIDE 10 MEQ, POTASSIUM P... IV SCH ×8 (15:56)
[2018-12-09] MEDS: LIPOSYN 20% 500 ML IV SCH ×2 (15:56→18:08)
[2018-12-09] MEDS: NS 1,000 ML IV SCH (15:57)
[2018-12-09] MEDS: AMBIEN PO SCH (20:28)
[2018-12-10] MEDS: PHENERGAN IV PRN ×4 (00:48→19:22)
[2018-12-10] MEDS: SODIUM CHLORIDE 0.9% INJ PRN ×4 (00:48→19:22)
[2018-12-10] MEDS: MORPHINE IV PRN ×6 (00:49→23:35)
[2018-12-10] MEDS: SODIUM CHLORIDE 0.9% INJ SCH ×2 (00:53→13:36)
[2018-12-10] MEDS: PROTONIX IV SCH ×2 (00:53→13:36)
[2018-12-10] MEDS: REGLAN IV SCH ×4 (01:09→21:22)
[2018-12-10] MEDS: CARAFATE LIQUID PO SCH ×4 (01:09→21:22)
[2018-12-10] MEDS: HUMALOG SUBQ SCH ×4 (06:07→21:23)
[2018-12-10 07:01] LABS: ALBUMIN 3.1 g/dL (3.5-5.0); CALCIUM 8.5 mg/dL (8.8-10.2); CREATININE 1.7 mg/dL (0.5-0.9); MAGNESIUM 2.3 mg/dL (1.5-2.7); PHOSPHORUS 3.9 mg/dL (2.7-4.5); POTASSIUM 4.1 mmol/L (3.5-5.1)
[2018-12-10] MEDS: NS 1,000 ML IV SCH ×2 (07:45→23:35)
[2018-12-10] MEDS ORDERED: DIPRIVAN 1% ONE (08:24)
[2018-12-10] MEDS: DULCOLAX PR SCH (09:12)
[2018-12-10] MEDS: BASAGLAR SUBQ SCH ×3 (10:02→21:22)
--- NOTE | 2018-12-10 10:21 | OPERATIVE NOTE ---
PROCEDURE DATE: 12/10/2018 ATTENDING PHYSICIAN: Dr. Gregory. PROCEDURE: Esophagogastroduodenoscopy. PREOPERATIVE DIAGNOSES: 1. Food impaction. 2. History of known esophageal stricture. She is awaiting dilation under fluoro at [facility]. 3. History of gastroparesis. 4. Uncontrolled diabetes. 5. Anemia. POSTOPERATIVE DIAGNOSES: Food in the proximal esophagus was suctioned out. There was solid food debris which was all suctioned out. There was evidence of a stricture starting at 33 cm from the incisors. It was like a pinhole, and the scope could not pass through. ESTIMATED BLOOD LOSS: Minimal. COMPLICATIONS: None. ANESTHESIA: Monitored anesthesia care per the anesthesiologist. SPECIMENS: None . DESCRIPTION OF PROCEDURE: After informed consent, the patient was explained the risks, benefits, indications, and alternatives to the procedure. The patient for prepared for EGD. The risks of the procedure, including infection, bleeding, pain, trauma to the surrounding structures, perforation, and were explained to the patient among others, and she acknowledged understanding and agreed to proceed with the procedure. The patient was brought to the OR. She was turned in the left lateral decubitus position. Bite block was placed. The patient was brought to the operating room. After adequate monitored anesthesia, the upper scope was introduced all the way to the distal esophagus. At that place, we encountered the esophageal stricture. Proximal to the stricture, there was abundance of solid and liquid debris in the esophagus proximal to the middle esophagus that was suctioned out sequentially. We were able to completely clean out the debris. The distal esophagus at 33 cm had evidence of esophageal stricture. It was a pretty tight stricture like a pinhole and the EGD scope could not pass through the area. The air was aspirated. Scope was withdrawn. Patient tolerated the procedure well, and was monitored in the OR in stable condition. RECOMMENDATIONS: 1. The patient will be on ice chips today, and then we will start her on clear liquids tomorrow as tolerated. 2. We will keep her on Protonix twice daily. 3. Carafate 1 g 6 hours. 4. She will continue on IV fluids, IV TPN, and bowel regimen. 5. She will follow up with [facility] for an EGD with esophageal dilation under fluoro and possible esophageal stent placement. 6. She will keep a good control of diabetes as they are doing. 7. Further recommendations are pending hospital course. Call us with any further questions. cc: Dr. Rob Haq MD
--- NOTE | 2018-12-10 14:07 | PROGRESS NOTE ---
DATE: 12/10/2018 SUBJECTIVE: The patient reports she is just from the OR. She reports yesterday, she was still having some sensation of choking with liquids. OBJECTIVE: Vital Signs: Temperature 97.6 degrees, heart rate 122, respiratory rate 20, blood pressure 146/85, O2 saturation 100% on room air. General Examination: This is a chronically ill- appearing, 43-year-old, female lying in bed, in no acute distress. Cardiovascular Examination: S1 and S2 heard. No murmurs, gallops, or rubs. Regular rate and rhythm. Respiratory Examination: Clear bilaterally to auscultation. No work of breathing or using accessory muscles. Abdomen: Soft, nontender to palpation. Bowel sounds present. No organomegaly. A little bit distended abdomen. Neurological Examination: The patient is alert and oriented x3. Moves 4 extremities. Laboratory Data: Reviewed. ASSESSMENT: 1. Intractable nausea and vomiting. 2. Esophageal stricture. 3. Protein-calorie malnutrition. 4. Uncontrolled diabetes mellitus type 2. PLAN: The patient has been evaluated for GI who has been following her since admission. The patient has no history of esophageal stricture. She was scoped today for suspicion for food impaction. The patient, as per nurses' report, was taking food from outside. In the EGD showed food in the proximal esophagus that was suctioned out. That was solid food actually. There was also evidence of a stricture as well. As I mentioned before, GI was able to remove the food. Regarding the stricture, the patient had an appointment in [place]. The patient an appointment at [facility] for an EGD with esophageal dilatation and possible esophageal stent placement. She had an appointment on this . We will talk with GI. They are okay to send this patient home on the day before, in this case Monday, and see if she can be still seen as an outpatient because as an inpatient, there is usually a lack of beds in [facility]. I talked to the patient to try to arrange a ride to be in the hospital on time that day. At this point, we are going to continue with the same management. For protein calorie malnutrition, patient is on TPN. She was having out of control until yesterday. Today, the blood sugars are low so we are going to reduce the dose of Lantus from 25 to 20 units b.i.d. cc: Clyde Dominguez MD
[2018-12-10] MEDS: TPN ELECTROLYTES 20 ML, MAGNESIUM SULFATE 5 MEQ, POTASSIUM CHLORIDE 10 MEQ, POTASSIUM P... IV SCH ×8 (17:59)
[2018-12-10] MEDS: LIPOSYN 20% 500 ML IV SCH (17:59)
[2018-12-10] MEDS: AMBIEN PO SCH (21:22)
[2018-12-11] MEDS: PROTONIX IV SCH ×2 (02:11→14:41)
[2018-12-11] MEDS: REGLAN IV SCH ×4 (02:11→20:21)
[2018-12-11] MEDS: SODIUM CHLORIDE 0.9% INJ SCH (02:11)
[2018-12-11] MEDS: CARAFATE LIQUID PO SCH ×4 (02:11→20:21)
[2018-12-11] MEDS: PHENERGAN IV PRN ×4 (02:11→20:21)
[2018-12-11] MEDS: SODIUM CHLORIDE 0.9% INJ PRN ×2 (02:11→20:21)
[2018-12-11] MEDS: MORPHINE IV PRN ×4 (06:11→20:21)
[2018-12-11] MEDS: HUMALOG SUBQ SCH ×4 (06:11→20:22)
[2018-12-11] MEDS: NS 1,000 ML IV SCH ×2 (06:49→10:27)
[2018-12-11 07:06] LABS: HEMATOCRIT 25.2 % (37.0-47.0); HEMOGLOBIN 7.8 g/dL (12.0-16.0); MCH 26.3 PG (27-31); MCV 84.8 FL (81-99); PLT 223 X1000 (130-400); RBC 2.97 XMIL (4.2-5.4); RDW 17.8 % (11.5-14.5); WBC 6.07 X1000 (4.8-10.8)
[2018-12-11 07:16] LABS: ALB/GLOB RATIO 1.1; ALBUMIN 3.1 g/dL (3.5-5.0); CALCIUM 8.1 mg/dL (8.8-10.2); CREATININE 1.4 mg/dL (0.5-0.9); MAGNESIUM 2.1 mg/dL (1.5-2.7); PHOSPHORUS 4.6 mg/dL (2.7-4.5); POTASSIUM 4.5 mmol/L (3.5-5.1); PREALBUMIN 25.2 mg/dL (20-40); TOTAL BILIRUBIN 0.19 mg/dL (0.20-1.00); TOTAL PROTEIN 5.9 g/dL (6.3-8.3)
[2018-12-11] MEDS: DULCOLAX PR SCH (08:39)
[2018-12-11] MEDS: BASAGLAR SUBQ SCH ×2 (08:39→20:21)
[2018-12-11] MEDS ORDERED: TPN ELECTROLYTES 20 ML, MAGNESIUM SULFATE 5 MEQ, POTASSIUM CHLORIDE 10 MEQ, POTASSIUM P... IV SCH ×9 (16:00)
--- NOTE | 2018-12-11 17:45 | PROGRESS NOTE ---
DATE: 12/11/2018 SUBJECTIVE: The patient is resting comfortably in bed. She states that she is tolerating the clear liquid diet without any difficulty, and she states that she is not eating solid foods as instructed. OBJECTIVE: Vital Signs: Temperature 98.8 degrees, blood pressure 166/89, heart rate 114, respirations 18, and O2 saturation 100% on room air. General: This is a middle-aged female, lying in bed, in no acute distress. Heart: S1 and S2, normal. Tachycardic. Lungs: Equal air entry bilaterally. No wheezing. No rales. No rhonchi. Abdomen: Positive bowel sounds. Soft, nontender, nondistended. Extremities: No edema, no cyanosis. Neurologic: The patient is alert and oriented x3. LABORATORY DATA: White blood cell count 6, hemoglobin 7.8, hematocrit 25, platelets 223,000. Sodium 149, potassium 4.5, chloride 117, CO2 of 25, BUN 33, creatinine 1.4, glucose 332, magnesium 2.1, phosphorus 4.6. ASSESSMENT AND PLAN: 1. Food impaction, status post esophagogastroduodenoscopy. The patient had an esophagogastroduodenoscopy done yesterday, at which time all the food debris was suctioned out. The patient was again encouraged not to eat solid food. 2. Esophageal stricture. The patient is scheduled to undergo dilation under fluoroscopy at [facility] on 12/13/2018. 3. Uncontrolled insulin dependent diabetes mellitus. We will adjust the patient's long-acting insulin dosage. 4. Hypernatremia. We will discontinue the normal saline. The patient's total parenteral nutrition formulation has been adjusted by the dietitian. 5. Chronic kidney disease. Stable. 6. Anemia. We will monitor the hemoglobin and hematocrit closely. 7. Disposition. The patient will likely be discharged home tomorrow so that she can attend her scheduled appointment at [facility] for dilation on . cc: Debra Maravilla MD MTDD
[2018-12-11] MEDS: LIPOSYN 20% 500 ML IV SCH (17:55)
[2018-12-11] MEDS: AMBIEN PO SCH (21:40)
[2018-12-12] MEDS: MORPHINE IV PRN ×4 (00:22→14:09)
[2018-12-12] MEDS: REGLAN IV SCH ×3 (02:09→14:09)
[2018-12-12] MEDS: CARAFATE LIQUID PO SCH ×3 (02:09→14:09)
[2018-12-12] MEDS: PROTONIX IV SCH ×2 (02:09→14:09)
[2018-12-12] MEDS: SODIUM CHLORIDE 0.9% INJ SCH (02:09)
[2018-12-12] MEDS: PHENERGAN IV PRN ×2 (05:20→11:18)
[2018-12-12] MEDS: SODIUM CHLORIDE 0.9% INJ PRN (05:21)
[2018-12-12] MEDS: HUMALOG SUBQ SCH (06:18)
[2018-12-12 06:33] LABS: HEMATOCRIT 26.1 % (37.0-47.0); MCH 26.3 PG (27-31); MCHC 30.7 g/dL (33-37); MCV 85.9 FL (81-99); MPV 13.4 FL (7.4-10.4); RBC 3.04 XMIL (4.2-5.4); RDW 17.9 % (11.5-14.5); WBC 7.64 X1000 (4.8-10.8)
[2018-12-12 07:08] LABS: ALBUMIN 3.1 g/dL (3.5-5.0); CALCIUM 8.4 mg/dL (8.8-10.2); CREATININE 1.4 mg/dL (0.5-0.9); PHOSPHORUS 4.5 mg/dL (2.7-4.5); POTASSIUM 4.2 mmol/L (3.5-5.1)
[2018-12-12] MEDS: DULCOLAX PR SCH (09:15)
[2018-12-12] MEDS: BASAGLAR SUBQ SCH (09:15)
--- NOTE | 2018-12-12 10:51 | PROVIDER PROGRESS NOTE ---
Progress Note SUBJECTIVE: No acute overnight events. Nausea present without vomiting. Mild abdominal pain. Patient tolerating clears. +BM present. She is being discharged today without TPN given insurance coverage with plan for to keep appointment for EGD at [facility] with Dr. Ford for dilation of known esophageal stricture. Her appointment is scheduled for 12PM tomorrow. OBJECTIVE: Last Vital Signs Temp 98.4 F 12/12/18 08:29 Pulse 101 H 12/12/18 08:29 Resp 18 12/12/18 08:29 BP 151/96 12/12/18 08:29 Pulse Ox 100 12/12/18 08:29 Height 5 ft 4 in Weight 154 lb 4.8 oz GEN: awake, alert, NAD HEENT: anicteric, MMM NECK: supple, no JVD PULM: CTAB ABD: soft ND, NABS, mild TTP throughout EXT: no cce NEURO: nonfocal LABS: 12/12/18 12/12/18 05:35 05:35 WBC 7.64 Hgb 8.0 L Plt Count 267 Sodium 147 H Potassium 4.2 Chloride 117 H Carbon Dioxide 19 L BUN 32 H Creatinine 1.4 H Glucose 265 H Albumin 3.1 L EGD: 12/10/2018 PREOPERATIVE DIAGNOSES: 1. Food impaction. 2. History of known esophageal stricture. She is awaiting dilation under fluoro at [facility]. 3. History of gastroparesis. 4. Uncontrolled diabetes. 5. Anemia. A/P: Ms. Kaleigh Bobby is a 43-year-old woman with a past medical history significant for insulin-dependent diabetes complicated by gastroparesis requiring gastric pacemaker placement, GERD with LA grade D esophagitis, severe esophageal stricture, gastric and duodenal ulcers, who represents with recurrent nausea/vomiting and dysphagia 2/2 known esophageal stricture. Repeat EGD on 12/10 revealed food impaction requiring clearance and worsening stricture about the side of a pinhole. She is being discharged today with plan for EGD with dilation at [facility] tomorrow. #Dysphagia: 2/2 to stricture: strict clears; crushed or liquid meds #Esophageal stricture: outpatient EGD tomorrow at [facility] with Dr. Ford for dilation; NPO after MN; stressed importance for patient to keep appointment #N/V: continue antiemetics prn #Protein calorie malnutrition: aware #Gastroparesis: continue antiemetics as needed #PUD: continue PPI BID #Anemia: multifactorial; stable hgb; no overt bleeding; known esophagitis, gastric and duodenal ulcers; continue PPI BID #CATERINA on CKD: Cr stable; avoid nephrotoxic agents #IDDM2: SSI Will sign off. Please call with questions. Patient should follow-up with Dr. Haq in 1-2 weeks after discharge
[2018-12-12 11:05] VITALS: BP 147/88
--- NOTE | 2018-12-12 16:07 | DISCHARGE SUMMARY ---
ADMISSION DATE: 11/27/2018 DISCHARGE DATE: 12/12/2018 FINAL DISCHARGE DIAGNOSES: 1. Severe esophageal stricture. 2. Diabetic gastroparesis. 3. Food impaction status post esophagogastroduodenoscopy. 4. Insulin dependent diabetes mellitus. 5. Chronic kidney disease. 6. Protein calorie malnutrition. 7. Peptic ulcer disease. CONSULTATIONS: GI consultation with Dr. Haq. PROCEDURES: EGD performed on 12/10/2018, which revealed food in the proximal esophagus that was suctioned out as well as a pinhole esophageal stricture. HOSPITAL COURSE: Ms. Bobby is a 43-year-old female with a history of multiple admissions to the hospital secondary to diabetic gastroparesis, esophageal stricture, peptic ulcer disease, and diabetes who presented to the ER with a chief complaint of abdominal pain and persistent nausea and vomiting. The patient had been scheduled to undergo an esophageal dilation at [facility]. However, she missed that appointment and the appointment had to be rescheduled. The patient was admitted and GI was consulted. The patient was advised prior to the procedure not to eat solid foods because they would not be able to go down her esophagus. However, the patient continued to be eat and presented with food impaction. On 12/10/2018, the patient was taken to the endoscopy suite. An EGD was done at which time food was found in the proximal esophagus. This food was suctioned out and the patient's esophageal stricture was seen. The patient did well following the procedure and was placed on a clear liquid diet which she has been able to tolerate so far without any difficulty. The patient was again encouraged not to eat solid foods until further notice from the GI physician, Dr. Ford at [facility] after her procedure. The patient was given TPN during the hospitalization to help improve her nutritional status. Unfortunately the patient's insurance will not cover TPN upon discharge. The patient is medically stable for discharge home today. She has an appointment with Dr. Ford at [facility] endoscopy suite at 12 p.m. on 12/13/2018. The patient has been advised to keep this appointment. DISCHARGE MEDICATIONS: 1. Carafate 1 gram p.o. every 6 hours. 2. Dulcolax 10 mg per rectum. 3. Phenergan 25 mg p.o. every 6 hours. 4. Protonix 40 mg p.o. daily. 5. Glargine 15 units subcutaneous q.a.m. 6. Ambien 10 mg p.o. at bedtime. DISCHARGE DIET: Clear liquids only. All pills to be crushed and consumed in a liquid. DISCHARGE INSTRUCTIONS: The patient is scheduled to undergo esophageal dilation under fluoroscopy at [facility] endoscopy Clinic at [facility] on 12/13/2018. cc: Debra Maravilla MD MTDNyasia
== END 2018-12-12 14:56 | disposition home or self-care (01) | DRG 392 ==
LOC: P.ED 10:59 → 4N 18:30 → SUATTDRO 18:30 → 4N 20:16
PROVIDERS: ATTEND Internal Medicine
CPT/HCPCS: 74176; 80048; 80053; 80076; 82040; 82248; 82465; 82948; 83735; 84100; 84134; 84478; 85025; 85027; 96361; 96365; 96366; 96375; 96376; 99284; A9270; C9113; J0780; J1815; J2270; J2550; J2765; J3475; J3480; J7030; S0164; XXXXX

== ENCOUNTER 2019-02-12 10:26 | Inpatient (IN) ==
[2019-02-12] MEDS ORDERED: NS 1,000 ML IV ONE ×3 (10:50→16:15)
[2019-02-12 11:09] LABS: URINE SOURCE CLEAN CATCH
[2019-02-12 11:10] LABS: ACETONE SERUM NEGATIVE (NEGATIVE)
[2019-02-12 11:14] LABS: BILIRUBIN URINE SMALL (NEGATIVE); BLOOD URINE NEGATIVE (NEGATIVE); COLOR YELLOW; GLUCOSE URINE NEGATIVE (NEGATIVE); KETONE URINE TRACE mg/dL (NEGATIVE); LEUKOCYTES URINE NEGATIVE (NEGATIVE); NITRITE URINE NEGATIVE (NEGATIVE); PROTEIN URINE 100 mg/dL (NEGATIVE); SP GRAVITY URINE 1.022; TURBIDITY URINE HAZY (CLEAR); UROBILINOGEN URINE 2 mg/dL (NORMAL)
[2019-02-12 11:15] LABS: UR EPITHELIAL CELLS >10 /HPF (<10); URINE BACTERIA 3+ /HPF; URINE RBC <10 /HPF (<10); URINE WBC <10 /HPF (<10)
--- NOTE | 2019-02-12 11:25 | PROVIDER DOCUMENTATION ---
HPI-Abdominal Pain/GI Problem - General Chief Complaint: Nausea/Vomiting Stated Complaint: N/V, WEAKNESS Time Seen by Provider: 02/12/19 10:49 Source: patient Allergies/Adverse Reactions: Patient Allergies Allergy/AdvReac Type Severity Reaction Status Date / Time No Known Allergies Allergy Verified 02/12/19 10:46 Home Medications: Home Medication List Medication Instructions Recorded Confirmed Last Taken Type Zolpidem [Ambien] 10 mg PO QHS 02/12/19 02/12/19 1 Day Ago History ~02/11/19 - History of Present Illness-ABD Nature of Presenting Problems: Patient is a 43yo F who presents w/ c/o abdominal pain, nausea, and vomiting that began this morning at approximately 0300 this morning. States she has vom ited 10 times this morning, the last being an hour PROMOTIONS COORDINATOR. Also reports she has been feeling weak lately, and "felt so weak she might have passed out." Unsure if syncope occurred. Patient reports hx of gastroparesis and esophageal tightening. Denies fever/chills or diarrhea. Reports she had an EGD and esophageal dilation 3 weeks ago. Reports she is an insulin dependent diabetic, and reports she has not checked her blood sugar since last week because she has "been feeling really sick and weak." States she has not used her insulin since last week. Reports recently food "has been coming back up," but denies food being stuck. FSBS performed by EMS 130. Patient given Zofran by EMS, which patient reports has not relieved the nausea. Patient's mother, who is at bedside, reports concern for depression that patient has been experiencing and weight loss within the past month. Denies CP or SOB. [facility]. Abdominal Pain Onset Location: reports: generalized abdomen Pain Radiation: reports: no radiation Quality of Pain: reports: pressure Severity in ED: reports: moderate Onset/Duration: reports: 4-6 hours ago Timing: reports: still present Activities at Onset: reports: none Exposure to sick contacts?: No Modifying Factors: improves with: nothing Associated Symptoms: reports: loss of appetite, nausea, vomiting, weakness. denies: chest pain, cough, diarrhea, dizziness, fever/chills, genitourinary problems, headaches, sinus congestion/drainage, shortness of breath, swelling/mass in abdomen Dark Stools Present?: reports: none noticed Rectal Bleeding: reports: none Rectal Pain: reports: none # of Vomiting Episodes: 10 Emesis Description: reports: clear, other (undigested food) Bruising or Bleeding Gums?: No Similar Symptoms Previously?: Yes Recently seen or treated by another doctor?: No Review of Systems - Adult - REVIEW OF SYSTEMS - ADULT Constitutional: reports: other (weakness). denies: chills, fever Eyes: reports: no symptoms reported Ears, Nose, Mouth & Throat: reports: no symptoms reported Cardiovascular: denies: chest pain, palpitations Respiratory: denies: cough, shortness of breath, wheezing Gastrointestinal: reports: see HPI, abdominal pain, nausea, poor appetite, vomiting. denies: constipation, diarrhea Genitourinary: reports: no symptoms reported Musculoskeletal: reports: no symptoms reported Integumentary: reports: no symptoms reported Neurological: denies: dizziness/vertigo, headache/migraines Psychiatric: reports: no symptoms reported Endocrine: reports: no symptoms reported All Other Systems: Reviewed and Negative Past History - Adult - PAST MEDICAL HISTORY-ADULT Review of Records: reports: Old Records Reviewed, Nursing Assessment Review, Medications Reviewed Major Childhood Illnesses: reports: denies history Cardiovascular: reports: HTN, hyperlipidemia Respiratory: reports: denies history Gastrointestinal: reports: GERD (with esophagitis and stenosis), GI bleed, ulcer , other (diabetic gastroparesis, erosive gastritis and esophagitis; gastric pacemaker) Obstetrical/Gynecological: reports: denies history Genitourinary: reports: kidney disease, other (ammenorrhea for 1 year) Musculoskeletal: reports: denies history Neurological: reports: other (DM neuropathy) Psychiatric: reports: anxiety, depression Endocrine/Immune: reports: anemia, Diabetes Other Conditions: reports: denies history Additional History: frequent ER visits - PRIOR SURGERIES/PROCEDURES Surgical/Procedure History: reports: cholecystectomy, indwelling device (Portacath), other (gastric stimulator) - IMMUNIZATION STATUS Childhood Immunizations: See Nurse Assessment Flu Vaccine: See Nurse Assessment - FAMILY HISTORY Family History: reviewed, not pertinent Physical Exam-General - PHYSICAL EXAM-ADULT Initial Vital Signs Reviewed: Yes - CONSTITUTIONAL General Appearance: alert, mild distress, thin - EYES Eyes: PERRL/EOMI, pink conjunctivae - HEAD, EARS, NOSE, MOUTH & THROAT HENMT: normocephalic/atraumatic, moist mucous membranes - NECK Neck: non-tender, full range of motion, supple, normal inspection - RESPIRATORY Respiratory: chest non-tender, lungs clear, normal breath sounds, no pleuratic chest pain, no respiratory distress, no accessory muscle use - CARDIOVASCULAR Cardiovascular: regular rate, rhythm, no gallop - GASTROINTESTINAL (ABDOMEN) Abdominal Exam: normal bowel sounds, soft, no organomegaly, no pulsatile mass, tenderness (generalized mildly TTP). negative: distended, guarding, rigid, rebound, McBurney's point tenderness, Rovsing's sign - LYMPHATIC Lymphatic: no adenopathy - MUSCULOSKELETAL Back Exam: normal inspection, no CVA tenderness Extremity: normal range of motion, non-tender, normal capillary refill - SKIN Integumentary: normal color, warm/dry - NEUROLOGIC Neurologic: grossly normal - PSYCHIATRIC Psych/Mental Status: normal mood/affect, normal thought content, normal thought process, oriented x 3 Progress - PLAN OF CARE/RESULTS Progress/Plan/Lab Results: Vital Signs - 8 hr 02/12/19 10:37 02/12/19 11:14 Temperature 97.7 F Pulse Rate 88 85 Respiratory Rate 18 18 Blood Pressure 94/85 100/78 O2 Sat by Pulse Oximetry 100 100 Bedside Urine ED: Urine Bedside Start: 02/12/19 10:49 Freq: ORDERED Status: Active Protocol: Activity Type Activity Date Activity User E-Sign Co-Sign Detail Recorded Client Recorded Date Recorded By Document 02/12/19 10:54 [id number] 02/12/19 10:56 [id number] 02/12/19 10:54 Point of Care [Bedside Point of Care] -Lot # [id number] - Results Negative -Control Line Visible? Yes -Additional Comment MENOPAUSAL Laboratory Results - last 24 hr 02/12/19 02/12/19 10:55 11:05 Urine Source CLEAN CATCH Urine Color YELLOW Urine Turbidity HAZY Urine pH 6.0 Ur Specific [place] 1.022 Urine Protein 100 A Ur Glucose (Stick) NEGATIVE Ur Ketones (Stick) TRACE A Urine Blood NEGATIVE Urine Nitrite NEGATIVE Urine Bilirubin SMALL A Urobilinogen Dipstick 2 A Urine Leukocytes NEGATIVE Urine WBC (Auto) <10 Urine RBC (Auto) <10 U Epithel Cells (Auto) >10 A Urine Bacteria (Auto) 3+ Acetone Level NEGATIVE Orders Category Date Time Status ED: Urine Bedside ORDERED Care 02/12/19 10:49 Active FSBS [Finger Stick Blood Sugar (ED)] DIRECTED Care 02/12/19 10:49 Active Saline Loc NOW Care 02/12/19 10:49 Active ACETONE SERUM [CHEM] Stat Lab 02/12/19 10:55 Results CBC WITH ELECTRONIC DIFF [HEME] Stat Lab 02/12/19 10:55 Results COMPREHENSIVE METABOLIC PANEL [CHEM] Stat Lab 02/12/19 10:55 Results LIPASE [CHEM] Stat Lab 02/12/19 10:55 Results URINALYSIS W/POSS RFLX CULT [URINALYSIS] Stat Lab 02/12/19 11:05 Results 0.9% Sodium Chloride Inj [Ns] 1,000 ml Med 02/12/19 10:50 Active IV 999 mls/hr EKG [EKG] Stat Ther 02/12/19 11:14 Ordered Lab results and plan of care discussed with patient who verbalizes understanding. Patient requested inpatient admission with the [facility] in [place], as they are "familiar with her stuff." Transfer forms completed for [place]. Patient stable for transfer. 1515: [facility] does not have any bed availability for inpatient admission today. Will admit patient to hospitalist. Result Diagrams: 02/12/19 10:55 02/12/19 10:55 - EKG 1 Time of EKG reading by physician:: 11:39 EKG Read and Signed by:: Fransisco Hernandez EKG Interpretation (*Must complete 3 of following elements*): Abnormal Rate: 82 Rhythm: NSR [place]: normal QRS: normal NM Interval: normal ST Wave: non-specific ST changes Comments: Prolonged QT (538) - CONSULTS/PCP/HOSPITALIST Notification #1 *Consult/PCP/Hospitalist*: Bairon Conklinist TOPPER PRESS OPERATOR Time Discussed: 15:30 Reason/Comments: nausea/vomiting, dehydration, hypokalemia, elevated creatinine Consult Disposition: other (possible inpatient admission here or hold until [facility]) #2 Consult: Bairon Conklinist TOPPER PRESS OPERATOR Time Discussed: 16:05 Reason/Comments: nausea/vomiting, dehydration, hypokalemia, elevated creatinine Consult Disposition: Admit Departure - Departure Date of Disposition Decision: 02/12/19 Time of Disposition Decision: 16:05 DIAGNOSIS: Hypokalemia, Dehydration, Prolonged QT interval, Elevated serum creatinine Nausea & vomiting Qualifiers: Vomiting type: unspecified Vomiting Intractability: intractable Qualified Code(s): R11.2 - Nausea with vomiting, unspecified Abdominal pain Qualifiers: Abdominal location: generalized Qualified Code(s): R10.84 - Generalized abdominal pain Disposition: ADMITTED INPATIENT 09 Certified Medical Emergency: Emergent Condition: Stable - Critical Care Note This patient required my direct & personal management of CC.: No Attestation - Physician/ GAUDENCIO Attestation Patient care was provided by Advanced Practice Provider:: Yes Advanced Practice Provider:: Mary Osman Advanced Practice Provider documentation review:: The Mid-level provider documentation, treatment plan and medical decision making was reviewed by the physician who agrees with all treatment and medical decision making by the MLP. The physician spent face to face time with patient:: No Advanced Practice Provider documentation review:: Supervising physician onsite and consulted in the evaluation and care of this patient. The physician did not have a face to face encounter with the patient.
[2019-02-12 11:33] LABS: BASO# 0.04 X1000 (0.0-0.2); BASO% 0.6 % (0.0-0.8); EOS# 0.05 X1000 (0.0-0.7); EOS% 0.7 % (0.0-10.0); HEMATOCRIT 36.5 % (37.0-47.0); HEMOGLOBIN 13.3 g/dL (12.0-16.0); LYMPH% 27.9 % (20.5-51.1); MCH 26.3 PG (27-31); MCHC 36.4 g/dL (33-37); MCV 72.3 FL (81-99); MONO# 0.41 X1000 (0.11-0.59); MONO% 5.7 % (1.7-9.3); MPV 12.6 FL (7.4-10.4); NEUT# 4.67 X1000 (1.4-6.5); NEUT% 65.1 % (42.2-75.2); PLT 410 X1000 (130-400); RBC 5.05 XMIL (4.2-5.4); RDW 17.4 % (11.5-14.5); WBC 7.17 X1000 (4.8-10.8)
[2019-02-12 11:47] LABS: AGAP 20; ALB/GLOB RATIO 1.3; ALBUMIN 3.9 g/dL (3.5-5.0); ALKALINE PHOSPHATASE 106 U/L (32-104); BUN 20 mg/dL (8-22); CALCIUM 8.6 mg/dL (8.8-10.2); CHLORIDE 99 mmol/L (98-107); COSMO 274; ESTIMATED GFR 20; GLUCOSE 116 mg/dL (70-104); GOT 30 U/L (10-30); GPT 14 U/L (10-36); LIPASE 32 U/L (13-60); SODIUM 135 mmol/L (136-145); TCO2 16 mmol/L (25-35); TOTAL BILIRUBIN 0.21 mg/dL (0.20-1.00)
[2019-02-12 11:57] LABS: POTASSIUM 1.8 mmol/L (3.5-5.1)
[2019-02-12] MEDS ORDERED: POTASSIUM CHLORIDE 40 MEQ/SWI 40 MEQ/100 ML IVPB IV ONE (11:59)
[2019-02-12] MEDS ORDERED: MORPHINE IV ONE (13:05)
[2019-02-12] MEDS ORDERED: MORPHINE ONE (13:15)
[2019-02-12 13:48] LABS: AMYLASE 146 U/L (20-200); LIPASE 34 U/L (13-60)
--- NOTE | 2019-02-12 13:52 | EKG Report ---
Test Performed on : 02/12/2019 11:38:27 AM Test Reason : evaluate QTC Blood Pressure : / mmHG Vent. Rate : 082 BPM Atrial Rate : 082 BPM P-R Int : 176 ms QRS Dur : 084 ms QT Int : 538 ms P-R-T Axes : 031 053 033 degrees QTc Int : 628 ms Normal sinus rhythm. T wave abnormality, consider inferior ischemia Prolonged QT Abnormal ECG When compared with ECG of 10-SEP-2018 02:32, T wave inversion now evident in Inferior leads Nonspecific T wave abnormality, worse in Lateral leads QT has lengthened Unconfirmed Result
[2019-02-12] MEDS ORDERED: POTASSIUM CHLORIDE 20 MEQ/SWI 20 MEQ/100 ML IVPB IV ONE (16:15)
[2019-02-12] MEDS: REGLAN IV SCH (16:28)
[2019-02-12] MEDS: PEPCID IV SCH (16:58)
--- NOTE | 2019-02-12 17:15 | Diag Imaging Result Doc PS360 ---
EXAM: KUB ABDOMEN INDICATION: abd pain; n/v TECHNIQUE: 2 views COMPARISON: 01/13/2019 FINDINGS: There are unremarkable bowel gas and stool patterns. There is no obstructive bowel pattern. There is no evidence of large volume free abdominal gas. There is a stable neural stimulation device projecting of the right side of the abdomen and a stable finding in place. IMPRESSION: No evidence of acute pathology by plain radiograph. Electronically signed by Vijay Zapata 02/12/2019 5:13 PM
--- NOTE | 2019-02-12 17:52 | HISTORY AND PHYSICAL ---
PRIMARY CARE PROVIDER: No one. PRIMARY LICENSED PROSTHETIST/ORTHOTIST: Dr. Ford from [facility]. CHIEF COMPLAINT: Nausea, vomiting, abdominal pain and difficulty swallowing. HISTORY OF PRESENT ILLNESS: Ms. Kaleigh Bobby is a 43-year-old female with a medical history of esophageal strictures where she states she gets very frequent esophageal dilatations. She claims that she gets them every 7-[address] Ford and has had multiple dilatations because they are only able to do a small amount. Her last one was around 3 weeks ago. Also has a history of noncompliance and diabetes mellitus type 2, but no home medications at this time. Has severe gastroparesis with a gastric pacemaker that was placed in 2014, CKD stage 3 and hypertension. She is now here with complaints of nausea, vomiting and abdominal pain that has been going on for about a week, and she has had some weight loss, weakness, dizziness and fatigue. She claims that she passed out or fainted this morning, and that made her decide to come here and seek help. She throws up frequently. She states it is the color of brown, but at the bedside she is mostly spitting into an emesis bag. She has had a potassium level that was pretty low at 1.8, and she will get supplementation for that. She does have some acute kidney injury on CKD. We will go ahead and start getting her some IV fluids and treat her. Her EKG shows a prolonged QTc, so we will monitor her in the [facility] overnight due to that. The plan is to hopefully get her better so she can see her pediatric psychiatrist as an outpatient for her outpatient esophageal dilatations that she has performed. Apparently the [facility] has denied her transfer, as they have absolutely no room, so will medically manage for now. We may end up having to transfer her if we cannot improve her status. PAST MEDICAL HISTORY: 1. Gastroparesis status post gastric pacemaker by Dr. Stanford at [facility] in 2014. 2. Diabetes mellitus type 2, noncompliant with medications, and actually she is not on any medications at all now. 3. Insomnia. Only takes Ambien. 4. Chronic kidney disease stage 3. 5. Hypertension. 6. Esophageal strictures. She has dilatations, she states, every 7-10 days. 7. History of gastritis. 8. Frequent spells of nausea, vomiting and abdominal pain. 9. Dysphagia. PAST SURGICAL HISTORY: 1. Cholecystectomy. 2. PEG tube in the past. 3. Gastric pacemaker by Dr. Stanford at [facility] in 2015. 4. Portacath. 5. Esophageal dilatation which she claims is every 7-10 days, with the last one being 3 weeks ago. SOCIAL HISTORY: Denies tobacco, alcohol or illicit drug use. She quit smoking marijuana in 2018. FAMILY HISTORY: Diabetes in her mother. ALLERGIES: No known drug allergies. HOME MEDICATIONS: Ambien 10 mg p.o. nightly. REVIEW OF SYSTEMS: A 24-point review of systems was completed, and all are negative except for those mentioned above in the HPI. Her abdominal pain, she states, is bilateral lower quadrant. PHYSICAL EXAMINATION: VITAL SIGNS: Temperature 97, heart rate 91, respiratory rate 16, blood pressure 101/55, O2 saturation 100% on room air. GENERAL: Ms. Kaleigh Bobby is a 43-year-old, ill-appearing female. She is in no acute distress. She is able to answer questions appropriately. HEENT: Atraumatic, normocephalic. Pupils equal, round, and reactive to light. Extraocular movements intact. Mucous membranes are dry. NECK: Trachea midline. CARDIOVASCULAR: S1 and S2, regular rate and rhythm. No rubs, gallops or murmurs. No lower extremity edema, +2 dorsalis and radial pulses. Negative JVD or carotid bruits. PULMONARY: Clear to auscultate. Bilateral breath sounds. No accessory muscle use or work of breathing noted. GI: Soft. Very hypoactive bowel sounds. Tenderness in bilateral lower quadrants. EXTREMITIES: Moves all extremities equally. Full range of motion. NEUROLOGIC: A O x3. Follows commands. SKIN: Warm, dry and intact. LABORATORY DATA: White blood cells 7000, hemoglobin 13, hematocrit 36, platelet count 410. Sodium 135, potassium 1.8, BUN 20, creatinine 3.0, glucose 116. Calcium 8.6, magnesium 2.6, bilirubin 0.21. AST 30, ALT 14. Albumin 3.9. Amylase 146, lipase 34. Urinalysis: 100 protein, trace ketones, small bilirubin, greater than 10 epithelial cells, 3+ bacteria. Negative acetone. Her last hemoglobin A1c was 6.9. That was on 11/01/2018, and we will do a repeat on that. IMAGING: None. Will order an abdominal x-ray. The last time she had an abdominopelvic CT was on 11/27/2018. It showed cholecystectomy, contraceptive device in the lower uterine segment, her gastric pacemaker, and no bowel obstruction. Then she had an abdominal x-ray on the 13 of January, and it was normal. Apparently she has an IUD. EKG: Normal sinus rhythm, rate 82. QTc is 628. We will repeat that in the morning. ASSESSMENT/PLAN: 1. Severe gastroparesis with pacemaker, also with intractable nausea and vomiting with abdominal pain and dysphagia for about a week. She is having scheduled Reglan that is going to be initiated. She will have p.r.n. Phenergan, and given the frequent dilatations that she apparently gets, we will consult gastroenterology. 2. Diabetes mellitus type 2. Will do pattern blood glucoses and sliding scale insulin and check a hemoglobin A1c. 3. Acute kidney injury on chronic kidney disease stage 3. This is likely all dehydration, so she is getting IV fluids, normal saline. 4. Significant hypokalemia. Potassium level is 1.8. She is getting a total of 60 IV. Will recheck another one around 11 tonight. Will have to monitor her QTc, as it is also prolonged. The magnesium level is normal. Will be cautious because of the acute kidney injury on chronic kidney disease, but will do more potassium if we need to. 5. Hypertension. No home medications. 6. Deep venous thrombosis prophylaxis with sequential compression devices. Dictated by NELL Maya for Evelio Cobb MD cc: NELL Maya Agree with the above. the following is my own face to face assessment. patient with another episode of nausea and vomiting likely related to her chronic diabetic gastroparesis. minimal diffuse tenderness on exam without rebound or guarding. will hydrate and treat symptomatically. no zofran for now given prolonged QtC but may be able to tomorrow if ekg changes resolve with treatment jof severe hypokalemia. MTDD
[2019-02-12] MEDS: HUMULIN R SUBQ SCH (20:48)
[2019-02-12] MEDS: TYLENOL PO PRN (22:18)
[2019-02-13] MEDS: REGLAN IV SCH ×4 (00:35→21:10)
[2019-02-13] MEDS ORDERED: NS 1,000 ML IV SCH (01:00)
[2019-02-13] MEDS: POTASSIUM CHLORIDE 20 MEQ/SWI 20 MEQ/100 ML IVPB IV SCH ×4 (01:24→11:49)
[2019-02-13] MEDS: TYLENOL PO PRN (05:26)
[2019-02-13] MEDS: PEPCID IV SCH (05:27)
[2019-02-13] MEDS: HUMULIN R SUBQ SCH ×4 (06:03→22:05)
[2019-02-13 06:11] LABS: INR 1.17; PROTIME 15.9 Seconds (11.0-16.0)
[2019-02-13 06:12] LABS: PTT 35.5 Seconds (22.3-41.8)
[2019-02-13 06:24] LABS: BASO# 0.04 X1000 (0.0-0.2); BASO% 0.7 % (0.0-0.8); EOS% 1.7 % (0.0-10.0); HEMATOCRIT 28.9 % (37.0-47.0); HEMOGLOBIN 10.3 g/dL (12.0-16.0); LYMPH# 2.75 X1000 (1.2-3.4); LYMPH% 45.8 % (20.5-51.1); MCH 26.5 PG (27-31); MCHC 35.6 g/dL (33-37); MCV 74.5 FL (81-99); MONO# 0.39 X1000 (0.11-0.59); MONO% 6.5 % (1.7-9.3); MPV 11.6 FL (7.4-10.4); NEUT# 2.72 X1000 (1.4-6.5); NEUT% 45.3 % (42.2-75.2); PLT 290 X1000 (130-400); RBC 3.88 XMIL (4.2-5.4); RDW 17.4 % (11.5-14.5)
[2019-02-13 06:57] LABS: ALB/GLOB RATIO 1.4; CALCIUM 7.7 mg/dL (8.8-10.2); CREATININE 2.3 mg/dL (0.5-0.9); MAGNESIUM 2.2 mg/dL (1.5-2.7); POTASSIUM 2.6 mmol/L (3.5-5.1); TOTAL BILIRUBIN 0.22 mg/dL (0.20-1.00); TOTAL PROTEIN 5.1 g/dL (6.3-8.3)
[2019-02-13 07:31] LABS: LYMPHS 52 % (21-51); SEGS 46 % (42-75)
--- NOTE | 2019-02-13 07:51 | EKG Report ---
Test Performed on : 02/13/2019 07:31:29 AM Test Reason : prolonged qtc Blood Pressure : / mmHG Vent. Rate : 084 BPM Atrial Rate : 084 BPM P-R Int : 178 ms QRS Dur : 080 ms QT Int : 358 ms P-R-T Axes : 030 043 042 degrees QTc Int : 423 ms Normal sinus rhythm. Nonspecific T wave abnormality Abnormal ECG When compared with ECG of 13-FEB-2019 07:30, (Unconfirmed) QRS axis shifted left Nonspecific T wave abnormality, worse in Lateral leads QT has shortened Confirmed by Duran BELL, Gamal Durant ([id number]) on 02/13/2019 9:45:04 AM
--- NOTE | 2019-02-13 08:52 | EKG Report ---
Test Performed on : 02/12/2019 3:49:50 PM Test Reason : repeat for QTC Blood Pressure : / mmHG Vent. Rate : 086 BPM Atrial Rate : 086 BPM P-R Int : 170 ms QRS Dur : 080 ms QT Int : 414 ms P-R-T Axes : 018 016 -24 degrees QTc Int : 495 ms Normal sinus rhythm. Nonspecific T wave abnormality Abnormal ECG When compared with ECG of 12-FEB-2019 11:38, (Unconfirmed) Nonspecific T wave abnormality now evident in Anterior leads QT has shortened Unconfirmed Result
[2019-02-13] MEDS: PHENERGAN PR PRN ×2 (09:30→21:18)
[2019-02-13] MEDS ORDERED: ZOFRAN IV PRN (09:57)
[2019-02-13] MEDS ORDERED: DIPRIVAN 1% ONE (13:02)
[2019-02-13] MEDS ORDERED: XYLOCAINE-MPF 2% ONE (13:02)
--- NOTE | 2019-02-13 16:03 | PROGRESS NOTE ---
DATE: 02/13/2019 INTERVAL HISTORY: The patient still with some nausea, but significantly improved from previous. Abdominal pain minimal at this point. No events on telemetry. QTc now markedly improved. REVIEW OF SYSTEMS: Ten point review as per interval history. LABS: WBC 6, hemoglobin 10.3, hematocrit 28.9, platelets 298,000. Sodium 138, potassium 2.5, bicarb 14, BUN 16, creatinine 2. 3, glucose 58 to 111. EKG repeat QTc 423. VITALS: Temperature max 98 degrees, pulse 81, respirations 16, blood pressure 90/63, O2 saturation 100% on room air. PHYSICAL EXAMINATION: General: No acute distress. Vitals: As above. HEENT: Normocephalic. Less dry mucous membranes. No cervical adenopathy. Cardiovascular: Regular rate and rhythm. No murmurs, rubs, or gallops. Pulmonary: Clear to auscultation bilaterally. No wheezing, rales, or rhonchi. Abdomen: Soft. Minimal diffuse tenderness without rebound or guarding. Bowel sounds decreased but present. Extremities: Peripheral pulses decreased but intact. No clubbing or cyanosis. Neurologic: Cranial nerves grossly intact. No focal deficits identified. Psychiatric: Awake, alert, oriented x3. Normal mood and affect. Follows commands well. Skin: No new rashes or lesions identified. ASSESSMENT AND PLAN: 1. Severe gastroparesis with nausea, vomiting, abdominal pain, and dysphagia. This has been a chronic issue for her. Some improvement with Reglan and Phenergan. Initially held Zofran and Compazine because of QTc prolongation on admission but repeat EKG this morning with normal QTc. Previous EKG likely because of severe hypokalemia, which is now somewhat improved. I will add some Zofran and consider Compazine if her nausea remains suboptimally controlled. Given complaints of dysphagia, asking gastroenterology to see but if she continues to improve, then they may wish to defer to her outpatient starter mechanic. 2. Diabetes mellitus, actually slightly hypoglycemic overnight. Improved now. Continue to monitor and will treat low blood sugars as needed. 3. Acute kidney injury on chronic kidney disease 3. Baseline creatinine 1.1 to 1.3. Creatinine 3.0 on admission, improving to 2.3 today with IV fluids. Continue hydration and monitor. 4. Hypokalemia. Potassium severely low at 1.8 on admission. Likely contributing to prolonged QTc noted on admission. Significantly improved, but remains low. Will further replete and monitor. Exercising some caution because of her acute kidney injury. 5. Hypertensive by history but not on no home medicines and blood pressure low normal here. We will monitor.
--- NOTE | 2019-02-13 17:30 | GASTROENTEROLOGY CONSULTATION ---
DATE: 02/13/2019 REASON FOR CONSULTATION: Dysphagia. HISTORY OF PRESENT ILLNESS: Ms. Kaleigh Bobby is a 43-year-old woman that is well known to our service who has a past medical history significant for poorly controlled insulin-dependent diabetes complicated by gastroparesis, status post gastric pacemaker placement, prior PEG tube, GERD with LA grade D esophagitis, severe mid-esophageal stricture, duodenal and gastric ulcers, chronic anemia, who presents today with 1 week of inability to tolerate p.o. The patient was previously hospitalized several times earlier this year, most recently in November of 2018 for progressive dysphagia. She underwent EGD and was found to have food impaction here which was cleared. She was started on TPN and referred to [facility] with Dr. Ford for serial dilations with fluoroscopy. Since her discharge she has had multiple serial dilations, occurring every 7 to 10 days. The last 1 was about 3 weeks ago, at which time the interval was spaced out to 4 months. Over the last week, she reports having increasing dysphagia to solids and now liquids. She feels like her throat is closing back up. She is able to handle her secretions, but not able to tolerate liquids at this time. She reports chronic abdominal pain that is unchanged. She is avoiding NSAIDs. However, has not been on any medications except reglan and Ambien as she ran out. PAST MEDICAL HISTORY: As per HPI. Other notable history is hypertension, diabetic neuropathy. PAST SURGICAL HISTORY: Cholecystectomy, prior PEG tube placement that has been removed, gastric pacemaker, Port-A-Cath. SOCIAL HISTORY: She is a former smoker. She denies any alcohol. She did smoke marijuana in the past. No drug use. ALLERGIES: No known drug allergies. MEDICATIONS: Ambien and Reglan. FAMILY HISTORY: No family history of GI malignancies. PHYSICAL EXAMINATION: Vital Signs: Temperature 97.5 degrees, heart rate 81, respiratory rate 16, blood pressure 90/63, O2 saturation 100% on room air. General: Patient is awake, alert, oriented, no acute distress. HEENT: Sclerae anicteric. Moist mucous membranes. Extraocular motor intact. Neck: Supple. No JVD, lymphadenopathy. Cardiac: Regular rate and rhythm. No murmurs. Lungs: Clear to auscultation bilaterally. No wheezing. Abdomen: Soft. Palpable gastric pacemaker. Nondistended. Normoactive bowel sounds. No rebound or guarding. Nontender. Extremities: No clubbing, cyanosis, or edema. Neurologic: Nonfocal. LABS: White count of 6.0, hemoglobin is 10.3, yesterday 13.3, platelets of 290,000, yesterday 410,000, MCV is 74.5. INR is 1.17. Sodium 138, potassium 2.5, chloride 111, bicarb 14, BUN 16, creatinine of 2.3 from 3.0, glucose with 58. LFTs are unremarkable. Albumin of 3.0. UA shows urobilinogen, epithelial cells, and proteinuria, as well as ketones. IMAGING: Abdominal x-ray shows no acute pathology. PROBLEM LIST - Dysphagia - Intractable N/V - Esophageal stricture - PUD - Gastroparesis - Anemia - CATERINA - Hypokalemia - IDDM2 ASSESSMENT AND PLAN: Kaleigh Bobby is a 43-year-old woman with a complicated history of poorly controlled insulin-dependent diabetes, gastroparesis status post gastric pacemaker, history of NSAID-induced PUD, esophageal stricture with severe esophagitis requiring serial dilations at [facility], and chronic anemia who re- presents with inability to tolerate p.o. including liquids and solids, concerning for possible food impaction versus worsening stricture. The patient currently has labs notable for anemia, microcytic, hypokalemia, low bicarb, elevated creatinine consistent with CATERINA in the setting of volume depletion from decreased PO and intractable N/V. She is currently getting IV fluids. We have made her n.p.o. for diagnostic EGD today. She is also on famotidine 20 mg IV q.12 hours, will change that to pantoprazole IV b.i.d., sliding scale insulin, Reglan 10 q.6 hours, Zofran as needed for nausea and vomiting, and Phenergan. Further recommendations post procedure. [facility]
[2019-02-13] MEDS: PROTONIX IV SCH (17:48)
[2019-02-13] MEDS: SODIUM CHLORIDE 0.9% INJ SCH (17:49)
--- NOTE | 2019-02-13 18:13 | OPERATIVE NOTE ---
PROCEDURE DATE: 02/13/2019 EXAM: Upper GI. PROVIDER: Charles Cano MD. INDICATIONS: History of esophageal stricture, inability to tolerate solids or liquids. History of peptic ulcer disease. MEDICATIONS: Monitored anesthesia care. DESCRIPTION OF PROCEDURE: Prior to procedure, history and physical was performed. Patient medication allergies were reviewed. The patient's tolerance to previous anesthesia was also reviewed. The risks and benefits of procedure and sedation options and risks were discussed with the patient. All questions were answered. Informed consent was obtained. After reviewing the risks and benefits, the patient was deemed in satisfactory condition to undergo the procedure. The endoscope was passed under direct visualization. Throughout the procedure, the patient's blood pressure, pulse and oxygen saturation monitored continuously. The endoscope was passed through the mouth and advanced to the mid esophagus, where esophageal stricture was encountered. The upper GI endoscopy was accomplished without difficulty. The patient tolerated the procedure well. COMPLICATIONS: No immediate complications. ESTIMATED BLOOD LOSS: Minimal. FINDINGS: There was a 3 to 4 mm esophageal stricture encountered at 30 cm from the incisors. There was no evidence of food impaction or retained contents. The remaining esophagus proximally was narrowed. There was some intrinsic inflammation within the stricture. Stricture was benign. IMPRESSION: Severe esophageal stricture. RECOMMENDATIONS: Start diabetic clear liquid diet. Start pantoprazole IV 40 mg twice a day. Recommend nutrition consultation for persistent protein calorie malnutrition. Replete K, IV fluids. We will follow with you. Please call with any questions or concerns. MTDD
[2019-02-14] MEDS: REGLAN IV SCH ×4 (04:49→23:05)
[2019-02-14] MEDS: SODIUM CHLORIDE 0.9% INJ SCH (04:50)
[2019-02-14 04:56] LABS: ALLEN TEST YES; BLOOD TYPE ARTERIAL; HCO3-(ACT) 17.1 mmoll (20.0-26.0); METHB 1.9 % (0.0-1.5); O2(CT) 13.1 mL/dL (15.0-23.0); O2HB 96.5 % (95.0-99.0); PCO2(98.6) 24 mmHg (35-45); PO2(98.6) 121 mmHg (60-100); SAMPLE BLOOD; SAO2 99.6 % (95.0-100.0); THB 9.5 g/dL (11.5-17.4); pH(98.6) 7.37 (7.35-7.45)
[2019-02-14 04:57] LABS: MODALITY ROOM AIR
[2019-02-14] MEDS: PROTONIX IV SCH (05:20)
[2019-02-14] MEDS: HUMULIN R SUBQ SCH ×3 (06:59→18:01)
[2019-02-14 09:04] LABS: BASO# 0.03 X1000 (0.0-0.2); BASO% 0.7 % (0.0-0.8); EOS% 2.3 % (0.0-10.0); HEMATOCRIT 29.7 % (37.0-47.0); HEMOGLOBIN 10.5 g/dL (12.0-16.0); LYMPH# 1.88 X1000 (1.2-3.4); LYMPH% 43.6 % (20.5-51.1); MCH 26.6 PG (27-31); MCHC 35.4 g/dL (33-37); MCV 75.4 FL (81-99); MONO# 0.25 X1000 (0.11-0.59); MONO% 5.8 % (1.7-9.3); NEUT# 2.05 X1000 (1.4-6.5); NEUT% 47.6 % (42.2-75.2); PLT 333 X1000 (130-400); RBC 3.94 XMIL (4.2-5.4); RDW 18.5 % (11.5-14.5); WBC 4.31 X1000 (4.8-10.8)
[2019-02-14 09:45] LABS: CREATININE 2.1 mg/dL (0.5-0.9)
[2019-02-14 10:04] LABS: POTASSIUM 2.5 mmol/L (3.5-5.1)
[2019-02-14] MEDS: POTASSIUM CHLORIDE 20 MEQ/SWI 20 MEQ/100 ML IVPB IV SCH ×2 (11:09→13:28)
[2019-02-14] MEDS: PHENERGAN PR PRN ×2 (11:09→23:10)
--- NOTE | 2019-02-14 14:15 | PROGRESS NOTE ---
DATE: 02/14/2019 INTERVAL HISTORY: Patient had nausea which is approaching baseline. Vomiting and abdominal pain essentially resolved. No events on telemetry. REVIEW OF SYSTEMS: A 12-point review of systems negative except as per interval history. LABORATORY DATA: WBC 4.3, hemoglobin 10.5, hematocrit 29.7, platelets 333,000. ABG with pH 7.374, pCO2 24, PO2 121. Sodium 141, potassium 2.5, bicarb 15, BUN 10, creatinine 2.1, glucose 123. PROCEDURES: Patient underwent EGD yesterday afternoon showing severe esophageal stricture, 3 to 4 mm, encounter 30 cm from the incisors. No food impaction or retained contents. Remaining esophagus proximally was narrowed. Some intrinsic inflammation within the stricture. The stricture appeared benign. VITAL SIGNS: T-max 98.3 degrees, pulse 96, respirations 18, blood pressure 129/71, O2 saturation 100% on room air. PHYSICAL EXAMINATION: General: No acute distress. Vital signs: As above. HEENT: Normocephalic, atraumatic. Moist mucous membranes. No cervical adenopathy. Cardiovascular: Regular rate and rhythm. No murmurs, rubs, or gallops. Pulmonary: Clear to auscultation bilaterally. No wheezes, rales, or rhonchi. Abdomen: Soft. Minimal diffuse tenderness remains without rebound or guarding. Bowel sounds are decreased but present. Extremities: Peripheral pulses decreased but intact. No clubbing or cyanosis. Neurologic: Cranial nerves grossly intact. No focal deficits identified. Psychiatric: Awake, alert, oriented x3. Normal mood and affect. Follows commands well. Cooperative. Skin: No new rashes or lesions identified. ASSESSMENT AND PLAN: 1. Severe gastroparesis with nausea, vomiting, abdominal pain. This has been a chronic issue for her. Appears to be improving with Reglan and Phenergan and Protonix. Initially held Zofran because of QTC prolongation but this resolved with correction of her hypokalemia. Continue treatment. 2. Dysphagia, esophageal stricture. Patient with a severe esophageal stricture and some irritation/esophagitis on endoscopy. We will keep her on a clear liquid diet. Continue Protonix. If she does well with the liquid diet, then may to discharge in the next 24 to 48 hours to follow up with her GI doctor at [facility]. 3. Diabetes mellitus. Sugars remain well controlled without intervention. The last A1c was 6.9. Suspect her diabetes is diet controlled. 4. Acute kidney injury on chronic kidney disease 3. Baseline creatinine 1.1 to 1.3. Creatinine 3.1 on admission, improving to 2.1 today. Continue IV fluids and monitor. 5. Hyperkalemia. Potassium was severely low at 1.8 on admission. Somewhat improved with repletion but ranked low. We will give her more potassium and continue to monitor.
--- NOTE | 2019-02-14 14:41 | GASTROENTEROLOGY PROGRESS NOTE ---
DATE: 02/14/2019 SUBJECTIVE: Patient is resting in bed. She continues to have nausea but she was able to eat her meal this morning. She had an EGD done yesterday which showed evidence of esophageal stricture which is getting treated at [facility] by Dr. Ford. OBJECTIVE: Vital signs: Temperature 97.7 degrees, pulse rate of 90, respiratory rate 18, blood pressure 111/81, saturating 100% on room air. Body weight of 137 pounds 3.2 ounces, BMI 23.6 kg/m2. General: Thinly built, lying in bed, in no acute distress. HEENT: Pale conjunctivae. No icterus. Neck: Supple. Abdomen: Soft, nontender, nondistended. No guarding. Extremities: No cyanosis, clubbing. Neurologic: Alert, awake, oriented x3. LABS: Hemoglobin and hematocrit are 10.5 and 29.7, white count 4.31, platelet count of 333,000. Sodium 141, potassium 2.5, chloride 114, bicarb of 15, anion gap of 12, BUN of 10, creatinine of 2.1, glucose of 96, calcium is 8. ABG showing pH 7.37, pCO2 24, PO2 121; this is on 21% FiO2 room air. INR 1.17, PTT of 15.9, PTT of 35.5. IMPRESSION AND PLAN: 1. Severe gastroparesis. The patient will continue on small frequent meals. She will continue on Reglan. We will try to reduce Phenergan to the lowest possible. She can get Zofran as needed. 2. Esophageal stricture. In this regard, she will need EGD with dilation under fluoroscopy. This is being managed at [facility] by Dr. Ford. The patient was counseled to make an appointment with Dr. Ford so that they can continue with serial dilations as scheduled at [facility]. 3. Diabetes mellitus. She will continue to keep good control by the primary care team. 4. Acute kidney injury. Continue to watch for now, per the primary care team. 5. Electrolyte imbalance including hypokalemia. This is being treated by the primary care team. 6. Hypertension. Aware. It is under good control now. 7. Anemia. Continue to watch for now. Transfuse as needed. 8. Gastrointestinal prophylaxis with Protonix twice daily in light of long esophageal stricture. 9. Bowel regimen. We will start her on MiraLAX twice daily. 10. The above plan of care was discussed with the patient and all questions answered. Please call us with any further questions. cc: Yandel Haq MD
[2019-02-14] MEDS: MIRALAX PO SCH ×2 (18:15→23:12)
[2019-02-14] MEDS: NORCO-5 PO PRN ×2 (18:21→23:05)
[2019-02-15] MEDS: REGLAN IV SCH ×4 (04:42→20:54)
[2019-02-15] MEDS: SODIUM CHLORIDE 0.9% INJ SCH ×4 (04:42→17:38)
[2019-02-15] MEDS: PROTONIX IV SCH ×2 (04:42→15:41)
[2019-02-15] MEDS: HUMULIN R SUBQ SCH ×5 (06:06→23:28)
[2019-02-15 07:28] LABS: BASO# 0.02 X1000 (0.0-0.2); BASO% 0.6 % (0.0-0.8); EOS# 0.08 X1000 (0.0-0.7); EOS% 2.5 % (0.0-10.0); HEMATOCRIT 31.1 % (37.0-47.0); HEMOGLOBIN 10.8 g/dL (12.0-16.0); LYMPH% 46.4 % (20.5-51.1); MCH 26.7 PG (27-31); MCHC 34.7 g/dL (33-37); MCV 76.8 FL (81-99); MONO# 0.28 X1000 (0.11-0.59); MONO% 8.7 % (1.7-9.3); MPV 11.7 FL (7.4-10.4); NEUT# 1.35 X1000 (1.4-6.5); NEUT% 41.8 % (42.2-75.2); PLT 284 X1000 (130-400); RBC 4.05 XMIL (4.2-5.4); RDW 19.3 % (11.5-14.5); WBC 3.23 X1000 (4.8-10.8)
[2019-02-15 07:45] LABS: HEMOGLOBIN A1C 5.9 % (4.8-6.0)
[2019-02-15 08:11] LABS: CALCIUM 7.7 mg/dL (8.8-10.2); POTASSIUM 2.8 mmol/L (3.5-5.1)
[2019-02-15] MEDS ORDERED: KLOR-CON PO ONE (08:51)
--- NOTE | 2019-02-15 10:49 | PROVIDER PROGRESS NOTE ---
Progress Note SUBJECTIVE: No acute overnight events. Patient is tolerating some clear liquids with some N/V. No CP, SOB, abdominal pain. OBJECTIVE: Last Vital Signs Temp 98.4 F 02/15/19 08:00 Pulse 88 02/15/19 08:00 Resp 18 02/15/19 08:00 BP 102/74 02/15/19 08:00 Pulse Ox 96 02/15/19 08:00 Height 5 ft 4 in Weight 137 lb 3.2 oz GEN: awake, alert, NAD HEENT: anicteric, MMM NECK: supple, no jvd PULM: CTAB, no wheezing CV: RRR, no murmurs ABD: soft NT/ND, NABS EXT: no cce NEURO: nonfocal LABS: 02/15/19 02/15/19 06:35 06:35 WBC 3.23 L RBC 4.05 L Hgb 10.8 L MCV 76.8 L Plt Count 284 Sodium 140 Potassium 2.8 L Chloride 116 H Carbon Dioxide 14 L BUN 8 Creatinine 2.0 H A/P: Ms. Kaleigh Bobby is a 43-year-old woman with a complicated history of poorly controlled insulin-dependent diabetes, gastroparesis status post pacemaker, history of NSAID-induced esophageal stricture with severe esophagitis requiring serial dilations at [facility] who presented with intractable nausea, vomiting and inability to tolerate PO found to have CATERINA, hypokalemia, low bicarb from volume depletion. EGD on admission showed continue significant stenosis in the mid-esophagus, but no evidence of food impaction. She continues to have intermittent N/V without abdominal pain. I do not suspect she is having gastroparesis exacerbation at this time. However, I am concerned that she may ultimately need esophageal stent placement or surgery as she was unable to successfully space the intervals between dilations. She also has not been compliant with medications including PPI. # Intractable nausea and vomitin/2 to esophageal stricture - continue clear liquid diet - will start NS with KCl IVFs for the next 24 hours - continue antiemetics # History of esophageal stricture: followed by Dr. Ford at [facility]; will need follow-up upon discharge # Hypokalemia: 2/2 GI losses; replete prn # Gastroparesis: antimetics as above # CATERINA: starting IVFs; trending Cr, I/O # Anemia: stable # History of PUD seen on EGD earlier this year; continue PPI BID # DM2: defer mgmt to primary # Constipation: continue miralax BID # Protein calorie malnutrition: patient continues to experience weight loss; previously on TPN; will consult nutrition, apprec recs Will follow with you. Please call with questions
[2019-02-15] MEDS: PHENERGAN PR PRN ×2 (11:21→16:57)
[2019-02-15] MEDS: MIRALAX PO SCH ×2 (11:21→20:54)
[2019-02-15] MEDS: NS + KCL 20 MEQ 1,000 ML IV SCH ×2 (12:12→23:29)
--- NOTE | 2019-02-15 16:18 | PROGRESS NOTE ---
DATE: 02/15/2019 INTERVAL HISTORY: The patient still with nausea and vomiting, tolerating some liquids, but occasional vomiting even with liquids. Does report some improvement in nausea with Phenergan. No other new complaints. No acute events overnight. REVIEW OF SYSTEMS: 12 point review of systems negative except as per interval history. LABS: CBC 3.2, hemoglobin 10.8, hematocrit 31.1, platelets 284,000. Sodium 140, potassium 2.8, chloride 116, BUN 8, creatinine 2.0. VITALS: T-max 98.4 degrees, pulse 91, respirations 18, blood pressure 114/81, O2 saturation 100. PHYSICAL EXAMINATION: General: No acute distress. Vitals: As above. HEENT: Normocephalic, atraumatic. Moist mucous membranes. No cervical adenopathy. Cardiovascular: Regular rate and rhythm. No murmurs, rubs, or gallops. Pulmonary: Clear to auscultation bilaterally. No wheezing, rales, or rhonchi. Abdomen: Soft,unchanged. Minimal diffuse tenderness without rebound or guarding. Extremities: Peripheral pulses decreased but intact. No clubbing or cyanosis. Neurologic: Cranial nerves grossly intact. No focal deficits identified. Psychiatric: Awake, alert, oriented x3. Normal mood and affect. Skin: No new rashes or lesions identified. ASSESSMENT AND PLAN: 1. Severe gastroparesis and esophageal stenosis with nausea, vomiting, abdominal pain. Some improvement in her nausea with Reglan,Phenergan, Protonix but still with issues with dysphagia and vomiting even to liquids. Gastroenterology following. Awaiting further recommendations by gastroenterology. May end up having to transfer to [facility] if issues continue and patient can not be dilated here. 2. Dysphagia secondary to esophageal stricture as above. On clear liquid diet, but only intermittently tolerating. 3. Diabetes mellitus, diet controlled. Monitor sugars. 4. Acute kidney injury on chronic kidney disease 3. Baseline creatinine 1.1 to 1.3. Improving slowly. Continue IV fluids and monitor. 5. Hypokalemia, improving with repletion but remains fairly low. Will replete further and monitor. 6. Insomnia. We will restart patient's home Ambien.
[2019-02-15] MEDS: AMBIEN PO PRN (20:54)
[2019-02-16] MEDS: REGLAN IV SCH ×4 (03:42→21:33)
[2019-02-16] MEDS: SODIUM CHLORIDE 0.9% INJ SCH ×2 (03:42→21:32)
[2019-02-16] MEDS: PROTONIX IV SCH ×2 (03:53→17:13)
[2019-02-16] MEDS: PHENERGAN PR PRN ×2 (03:53→10:08)
[2019-02-16] MEDS: NORCO-5 PO PRN ×2 (04:36→04:45)
[2019-02-16] MEDS: HUMULIN R SUBQ SCH ×4 (06:53→21:33)
[2019-02-16 07:09] LABS: ALB/GLOB RATIO 1.5; ALBUMIN 2.6 g/dL (3.5-5.0); CALCIUM 7.4 mg/dL (8.8-10.2); CREATININE 1.8 mg/dL (0.5-0.9); POTASSIUM 2.8 mmol/L (3.5-5.1); TOTAL BILIRUBIN 0.38 mg/dL (0.20-1.00); TOTAL PROTEIN 4.3 g/dL (6.3-8.3)
[2019-02-16 09:21] LABS: BASO# 0.01 X1000 (0.0-0.2); BASO% 0.3 % (0.0-0.8); EOS# 0.05 X1000 (0.0-0.7); EOS% 1.3 % (0.0-10.0); HEMOGLOBIN 11.1 g/dL (12.0-16.0); LYMPH# 1.58 X1000 (1.2-3.4); LYMPH% 41.9 % (20.5-51.1); MCH 27.4 PG (27-31); MCHC 34.7 g/dL (33-37); MONO# 0.21 X1000 (0.11-0.59); MONO% 5.6 % (1.7-9.3); MPV 11.7 FL (7.4-10.4); NEUT# 1.92 X1000 (1.4-6.5); NEUT% 50.9 % (42.2-75.2); PLT 302 X1000 (130-400); RBC 4.05 XMIL (4.2-5.4); RDW 20.5 % (11.5-14.5); WBC 3.77 X1000 (4.8-10.8)
[2019-02-16] MEDS: NS + KCL 20 MEQ 1,000 ML IV SCH (10:08)
[2019-02-16] MEDS: POTASSIUM CHLORIDE 20 MEQ/SWI 20 MEQ/100 ML IVPB IV SCH ×2 (12:26→14:00)
[2019-02-16] MEDS: MIRALAX PO SCH ×2 (13:59→21:33)
[2019-02-16] MEDS: PHENERGAN IV PRN ×3 (14:00→21:32)
[2019-02-16] MEDS ORDERED: POTASSIUM PHOSPHATE IV ONE (15:35)
[2019-02-16] MEDS ORDERED: NS IV ONE (15:35)
[2019-02-16] MEDS: LIPOSYN 20% 250 ML IV SCH (16:54)
[2019-02-16] MEDS: TPN ELECTROLYTES 20 ML, MAGNESIUM SULFATE 5 MEQ, POTASSIUM PHOSPHATE 15 MMOL, M.V.I.-12... IV SCH ×7 (16:54)
--- NOTE | 2019-02-16 17:54 | PROGRESS NOTE ---
DATE: 02/16/2019 INTERVAL HISTORY: The patient with ongoing nausea and intermittent vomiting after ingesting liquids. Some mild improvement with the addition of Phenergan yesterday, but really stable since then. No new complaints. No acute events overnight. REVIEW OF SYSTEMS: Twelve-point review of systems negative except as per interval history. LABS: WBC 3.7, hemoglobin 11.1, hematocrit 32.0, platelets 302. Sodium 141, potassium 2.8, bicarb 17, BUN 6, creatinine 1.8, phosphorus 1.9. PHYSICAL EXAMINATION: Vitals: T-max 98.8, pulse 86, respirations 16, blood pressure 121/79. O2 saturation 98% on room air. General: No acute distress. HEENT: Atraumatic. Moist mucous membranes. Neck: No cervical adenopathy. Cardiovascular: Regular rate and rhythm. No murmurs, rubs or gallops. Pulmonary: Clear to auscultation bilaterally. No wheezing, rales, or rhonchi. Abdomen: Soft. Minimal diffuse tenderness without rebound or guarding, essentially unchanged to minimally improved. Bowel sounds present. Extremities: Peripheral pulses decreased, but intact. No clubbing or cyanosis. Neurologic: Cranial nerves grossly intact. No focal deficits identified. Psychiatric: Normal mood and affect. Awake, alert, oriented x3. Skin: No new rashes or lesions identified. ASSESSMENT AND PLAN: 1. Severe gastroparesis and esophageal stenosis with nausea, vomiting, abdominal pain, and dysphagia. Some modest improvement with Reglan, Phenergan, Zofran, Protonix, but still dysphagia and vomiting to liquids. Gastroenterology following. Suspect we may end up having to transfer her to [facility] if issues continue. 2. Dysphagia, secondary to esophageal strictures above. On clear liquid diet, but not consistently tolerating. Given chronicity of the issue and the likelihood of this being a prolonged problem, we will go ahead and discuss starting her on total parenteral nutrition. 3. Diabetes mellitus, diet controlled. Monitor sugars. 4. Acute kidney injury on chronic kidney disease 3. Baseline creatinine 1.1 to 1.3. Creatinine 3.0 on admission. Has been improving slowly, but consistently. Down to 1.8 today. Continue fluids and monitor. 5. Hypokalemia, still somewhat low despite repletion. Will continue potassium and fluids and give some additional repletion and monitor. 6. Hypophosphatemia. We will give some repletion and monitor. 7. Insomnia. Continue patient's home Fabiano nassar
--- NOTE | 2019-02-16 18:07 | PROVIDER PROGRESS NOTE ---
Progress Note SUBJECTIVE: She continues to have NBNB overnight and difficulty tolerating liquids. No CP or SOB. Minimal abdominal pain. +BM OBJECTIVE: Last Vital Signs Temp 98.8 F 02/16/19 15:59 Pulse 96 H 02/16/19 15:59 Resp 16 02/16/19 15:59 BP 128/88 02/16/19 15:59 Pulse Ox 98 02/16/19 15:59 Height 5 ft 4 in Weight 137 lb 3.2 oz GEN: awake, alert, NAD HEENT: anicteric, MMM NECK: supple, no jvd PULM: CTAB, no wheezing CV: RRR, no murmurs ABD: soft NT/ND, NABS EXT: no cce NEURO: nonfocal LABS: 02/16/19 02/16/19 06:10 06:10 WBC Cancelled Hgb Cancelled Plt Count Cancelled Sodium 141 Potassium 2.8 L Chloride 117 H Carbon Dioxide 17 L BUN 6 L Creatinine 1.8 H Glucose 105 H A/P: Ms. Kaleigh Bobby is a 43-year-old woman with a complicated history of poorly controlled insulin-dependent diabetes, gastroparesis status post pacemaker, history of NSAID-induced esophageal stricture with severe esophagitis requiring serial dilations at [facility] who presented with intractable nausea, vomiting and inability to tolerate PO found to have CATERINA, hypokalemia, low bicarb from volume depletion. EGD on admission showed continue significant stenosis in the mid-esophagus, which is the cause of her presentation. She continues to have intermittent N/V without significant abdominal pain with PO intake. I recommend starting her on TPN. She will likely need transfer to [facility] early next week for surgical evaluation from thoracic surgery given failed progress with multiple serial dilations. # Intractable nausea and vomitin/2 to esophageal stricture - continue clear liquid diet - cont IVFs - continue antiemetics # History of esophageal stricture:will look into transfer to [facility] early next week # Hypokalemia: 2/2 GI losses; replete prn # Gastroparesis: antimetics as above # CATERINA: improving; continue IVFs # Anemia: stable # History of PUD seen on EGD earlier this year; continue PPI BID # DM2: defer mgmt to primary # Constipation: continue miralax BID # Protein calorie malnutrition: patient continues to experience weight loss; resume TPN Will follow with you. Please call with questions
[2019-02-16] MEDS: AMBIEN PO PRN (21:32)
[2019-02-17] MEDS: PHENERGAN IV PRN ×6 (01:48→23:30)
[2019-02-17] MEDS: SODIUM CHLORIDE 0.9% INJ SCH ×6 (01:48→14:59)
[2019-02-17] MEDS: PROTONIX IV SCH ×3 (04:20→14:59)
[2019-02-17] MEDS: NORCO-5 PO PRN (04:20)
[2019-02-17] MEDS: REGLAN IV SCH ×4 (04:20→22:15)
[2019-02-17] MEDS: HUMULIN R SUBQ SCH ×4 (06:55→23:34)
[2019-02-17 07:03] LABS: CALCIUM 7.5 mg/dL (8.8-10.2); CREATININE 1.6 mg/dL (0.5-0.9); MAGNESIUM 1.7 mg/dL (1.5-2.7); PHOSPHORUS 1.7 mg/dL (2.7-4.5); PREALBUMIN 13.5 mg/dL (20-40)
[2019-02-17] MEDS: MIRALAX PO SCH ×2 (08:12→23:33)
--- NOTE | 2019-02-17 11:15 | PROVIDER PROGRESS NOTE ---
Progress Note SUBJECTIVE: No acute overnight events. She reports continued N/V. She has not been able to tolerate much liquids and is spitting in trashcan. She reports stable abdominal pain. OBJECTIVE: Last Vital Signs Temp 98.3 F 02/17/19 07:43 Pulse 78 02/17/19 07:43 Resp 20 02/17/19 07:43 BP 111/74 02/17/19 07:43 Pulse Ox 100 02/17/19 07:43 Height 5 ft 4 in Weight 150 lb 4 oz GEN: awake, alert, NAD HEENT: anicteric, MMM NECK: supple, no jvd PULM: CTAB, no wheezing CV: RRR, no murmurs ABD: soft ND, mild diffuse TTP, NABS EXT: no cce NEURO: nonfocal LABS: 02/17/19 06:10 Sodium 140 Potassium 3.0 L Chloride 116 H Carbon Dioxide 17 L BUN 5 L Creatinine 1.6 H Glucose 113 H Calcium 7.5 L Phosphorus 1.7 L Prealbumin 13.5 L A/P: Ms. Kaleigh Bobby is a 43-year-old woman with a complicated history of poorly controlled insulin-dependent diabetes, gastroparesis status post pacemaker, history of NSAID-induced esophageal stricture with severe esophagitis requiring serial dilations at [facility] who presented with intractable nausea, vomiting and inability to tolerate PO found to have CATERINA, hypokalemia, low bicarb from volume depletion. EGD on admission showed continue significant stenosis in the mid-esophagus, which is the cause of her presentation. She continues to N/V and inability to tolerate much PO intake. She is on TPN. I have discussed case with Dr. Cobb. We will try to arrange transfer to [facility] for esophageal stent vs surgical evaluation. # Intractable nausea and vomitin/2 to esophageal stricture - continue clear liquid diet - cont IVFs - continue antiemetics # History of esophageal stricture: as above # Hypokalemia: 2/2 GI losses; replete prn # Gastroparesis: antimetics as above # CATERINA: improving; continue IVFs # Anemia: stable # History of PUD seen on EGD earlier this year; continue PPI BID # DM2: defer mgmt to primary # Constipation: continue miralax BID # Protein calorie malnutrition: patient continues to experience weight loss; on TPN Will follow with you. Please call with questions
[2019-02-17] MEDS: LIPOSYN 20% 250 ML IV SCH (12:12)
[2019-02-17] MEDS: TPN ELECTROLYTES 20 ML, MAGNESIUM SULFATE 5 MEQ, POTASSIUM PHOSPHATE 15 MMOL, M.V.I.-12... IV SCH ×7 (12:17)
--- NOTE | 2019-02-17 14:28 | PROGRESS NOTE ---
DATE: 02/17/2019 INTERVAL HISTORY: Some minimal improvement in patient's vomiting, but still having significant dysphagia, even to clear liquids. Discussed with Gastroenterology Dr. Cano who believes she needs transfer to [facility] for esophageal stent versus surgical evaluation. I called [facility] and spoke with Gastroenterology down there, Dr. Lara. He agreed that transfer was appropriate, but stated there were no beds currently and recommended we try again tomorrow. REVIEW OF SYSTEMS: A 12 point review of systems negative except as per Interval History. LABORATORIES: Sodium 140, potassium 4.3, bicarbonate 17, BUN 5, creatinine 1.6 glucose 113, phosphorus 1.7, magnesium 1.7. VITALS: Temperature maximum 98.5 degrees, pulse 79, respirations 20, blood pressure 103/75, O2 saturation 100% on room air. PHYSICAL EXAMINATION: General: No acute distress. Small amount of emesis noted in basin. Vitals: As above. HEENT: Normocephalic, atraumatic. Moist mucous membranes. Neck: No cervical adenopathy. Cardiovascular: Regular rate and rhythm. No murmurs, rubs, or gallops. Pulmonary: Clear to auscultation bilaterally. No wheezing, rales, or rhonchi. Abdomen: Soft. Still with some minimal diffuse tenderness slightly more pronounced in the epigastrium without rebound or guarding. Bowel sounds present. Extremities: Peripheral pulses decreased, but intact. No clubbing or cyanosis. Neurologic: Cranial nerves grossly intact. No focal deficits identified. Psychiatric: Normal mood and affect. Awake, alert, and oriented x3. Skin: No new rashes or lesions identified. ASSESSMENT AND PLAN: 1. Severe gastroparesis and esophageal stenosis with nausea/vomiting, abdominal pain, dysphagia. Some modest improvements with conservative therapy with Reglan, Phenergan, Zofran, Protonix, but still with dysphagia and vomiting even to liquids. Gastroenterology following. Discussion regarding transfer to [facility] as above. We will try again for transfer tomorrow. 2. Dysphagia secondary to severe esophageal stricture as above. On clear liquid diet, but tolerating intermittently at best. Patient started on TPN, which we will continue. 3. Diabetes mellitus, diet controlled. Monitor sugars. 4. Acute kidney injury on chronic kidney disease 3. Baseline creatinine 1.1 to 1.3. Creatinine on admission 3.0. Has been slowly but consistently improving. Down to 1.6 today. Continue fluids and monitor. 5. Hypokalemia, hypophosphatemia. Both still somewhat low. Will further replete and monitor. 6. Insomnia. Continue patient's home Ambien. [facility]
[2019-02-17] MEDS: AMBIEN PO PRN (22:15)
[2019-02-18] MEDS: NORCO-5 PO PRN ×3 (01:44→20:15)
[2019-02-18] MEDS: REGLAN IV SCH ×4 (04:52→20:17)
[2019-02-18] MEDS: PROTONIX IV SCH ×2 (04:53→16:56)
[2019-02-18] MEDS: PHENERGAN IV PRN ×4 (04:53→18:57)
[2019-02-18] MEDS: SODIUM CHLORIDE 0.9% INJ SCH ×2 (04:53→17:33)
[2019-02-18 06:48] LABS: CALCIUM 7.3 mg/dL (8.8-10.2); CREATININE 1.5 mg/dL (0.5-0.9); MAGNESIUM 1.7 mg/dL (1.5-2.7); PHOSPHORUS 2.1 mg/dL (2.7-4.5); POTASSIUM 2.8 mmol/L (3.5-5.1)
[2019-02-18] MEDS: HUMULIN R SUBQ SCH ×4 (06:52→21:06)
[2019-02-18] MEDS ORDERED: POTASSIUM CHLORIDE 60 MEQ in NS 500 ML IV ONE (09:15)
[2019-02-18] MEDS: SODIUM CHLORIDE 0.9% INJ PRN (10:02)
[2019-02-18] MEDS: DULCOLAX PR SCH ×2 (10:30→20:16)
[2019-02-18] MEDS: MIRALAX PO SCH ×2 (10:31→20:17)
[2019-02-18] MEDS: TPN ELECTROLYTES 20 ML, MAGNESIUM SULFATE 5 MEQ, M.V.I.-12 10 ML, MTE CONCENTRATE 1 ML,... IV SCH ×16 (12:17→12:47)
[2019-02-18] MEDS: LIPOSYN 20% 250 ML IV SCH ×2 (12:18→12:48)
--- NOTE | 2019-02-18 15:56 | GASTROENTEROLOGY PROGRESS NOTE ---
DATE: 02/18/2019 SUBJECTIVE: Patient is currently resting in bed. She continues to have intermittent nausea. She has decreased p.o. intake. She denies any fevers, rigors, or chills. She is awaiting a transfer to [facility] for management of a long esophageal stricture. She may need esophageal stent or dilation under fluoroscopy. She has been seeing Dr. Ford for serial esophageal dilation for a long distal esophageal stricture. OBJECTIVE: Vital signs: Temperature 98.6 degrees, pulse rate of 95, respiratory rate of 20, blood pressure 112/76, saturating 100% on room air. Body weight of 150 pounds 2 ounces, BMI 25.8 kg/m2. General: Thinly built, lying in bed, in no acute distress. HEENT: Pale conjunctivae. No icterus. Neck: Supple. Abdomen: Soft, nondistended. No guarding. Extremities: No cyanosis or clubbing. Neurologic: Alert, awake, oriented x3. LABS: Sodium 140, potassium 2.8, chloride 116, bicarb 99, with a BUN of 4, creatinine 1.5, glucose of 132, calcium is 7.3, phosphorus 2.1 magnesium 1.7. Urine culture showing mixed supriya. IMPRESSION AND PLAN: 1. Intractable nausea and vomiting secondary to esophageal stricture. She is awaiting transfer to [facility] for possible esophageal stent or esophageal dilation under fluoroscopy. She will continue a clear liquid diet. Continue IV fluids. Continue IV antiemetics. We will continue on PPIs b.i.d. 2. Gastroparesis. She will continue antiemetics and clear liquid diet. 3. Malnutrition. She is on TPN. 4. Acute kidney injury is improved. Creatinine is 1.5. 5. Anemia, currently stable. Continue watch for now. 6. History of peptic ulcer disease seen on EGD last year. She will continue PPIs b.i.d. 7. Type 2 diabetes. Continue management per the primary care team. 8. Constipation. Continue MiraLAX twice daily. 9. Electrolyte imbalance. This is being treated by the primary care team. 10. History of pacemaker placement. Aware. 11. Disposition. Patient is awaiting transfer to [facility]. The above plans were discussed with the patient and the nursing staff and all questions answered. Please call us with any further questions. cc: MD Dr. Reza Villa
--- NOTE | 2019-02-18 16:16 | PROGRESS NOTE ---
DATE: 02/18/2019 INTERVAL HISTORY: The patient does report feeling somewhat better today. Did have 1 or 2 episodes of vomiting after dysphagia to liquids last night and certainly some improvement from admission. No complaints of acute events overnight. LABS: Sodium 143, potassium 2.8, bicarb 19, BUN 4, creatinine 1.5, glucose 132. VITALS: T-max 98.6 , pulse 95, respirations 20, blood pressure 112/73, oxygen saturation 100% on room air . PHYSICAL EXAMINATION: General: No acute distress. Vitals: As above. HEENT: Normocephalic, atraumatic. Moist mucous membranes. No cervical adenopathy. Cardiovascular: Regular rate and rhythm. Pulmonary: Clear to auscultation bilaterally. No wheezing, rales, or rhonchi. Abdomen: Less tender. Still without rebound or guarding. Bowel sounds present. Extremities: Peripheral pulses intact but slightly decreased. No clubbing or cyanosis. Neurologic: Cranial nerves grossly intact. No focal deficits identified. Psychiatric: Normal mood and affect. Awake, alert, and oriented x3. Skin: No new rashes or lesions identified. ASSESSMENT AND PLAN: 1. Severe gastroparesis and esophageal stenosis with nausea, vomiting, abdominal pain, and dysphagia. Some modest improvement with conservative therapy with Reglan, Phenergan, Zofran, and Protonix. Still with dysphagia and vomiting to liquids. Gastroenterology following. After discussion with them yesterday, they recommended transfer to [facility]. I did discuss with [facility] yesterday who agreed that the transfer was appropriate but did not have any beds. I contacted [facility] again this morning. They still have no beds. We will continue to try for transfer to [facility]. Her regular [facility] special delivery worker is Dr. Ford. Yesterday, I spoke with Dr. Lara who was sales and operations trainee. 2. Dysphagia, severe esophageal stricture. Continue clear liquid diet and total parenteral nutrition. Monitor. 3. Diabetes mellitus. Diet controlled. Monitor glucose. 4. Acute kidney injury on chronic kidney disease 3. Baseline creatinine 1.1 to 1.3. Creatinine on admission 3.0. Has slowly but steadily improved with fluids. Down to 1.5 today. 5. Hypokalemia, still fairly low. We will replete and monitor. 6. Hypophosphatemia. Only minimally low today. Total parenteral nutrition being adjusted. We will leave it for now but consider repletion if it worsens. 7. Insomnia. Continue patient's home Ambien.
[2019-02-18] MEDS: AMBIEN PO PRN (21:08)
[2019-02-19] MEDS: PHENERGAN IV PRN ×6 (00:57→21:40)
[2019-02-19] MEDS: SODIUM CHLORIDE 0.9% INJ PRN ×3 (00:57→21:40)
[2019-02-19] MEDS: REGLAN IV SCH ×4 (05:01→21:30)
[2019-02-19] MEDS: PROTONIX IV SCH ×2 (05:45→17:53)
[2019-02-19] MEDS: SODIUM CHLORIDE 0.9% INJ SCH ×2 (05:45→21:31)
[2019-02-19 06:57] LABS: CREATININE 1.4 mg/dL (0.5-0.9); MAGNESIUM 1.8 mg/dL (1.5-2.7); PHOSPHORUS 3.5 mg/dL (2.7-4.5); POTASSIUM 3.5 mmol/L (3.5-5.1)
[2019-02-19 07:06] LABS: CALCIUM 6.5 mg/dL (8.8-10.2)
[2019-02-19] MEDS: HUMULIN R SUBQ SCH ×4 (07:34→21:45)
[2019-02-19] MEDS: MIRALAX PO SCH ×2 (08:58→21:45)
[2019-02-19] MEDS: NORCO-5 PO PRN ×2 (08:58→17:16)
[2019-02-19] MEDS: DULCOLAX PR SCH ×2 (08:59→21:38)
[2019-02-19] MEDS ORDERED: TPN ELECTROLYTES 20 ML, MAGNESIUM SULFATE 5 MEQ, M.V.I.-12 10 ML, MTE CONCENTRATE 1 ML,... IV SCH ×8 (12:00)
[2019-02-19] MEDS: LIPOSYN 20% 250 ML IV SCH (12:16)
[2019-02-19] MEDS: TPN ELECTROLYTES 20 ML, MAGNESIUM SULFATE 5 MEQ, M.V.I.-12 10 ML, MTE CONCENTRATE 1 ML,... IV SCH ×18 (12:17→12:24)
--- NOTE | 2019-02-19 18:12 | PROGRESS NOTE ---
DATE: 02/19/2019 SUBJECTIVE: No acute events overnight. This patient had a bowel movement today and is tolerating a little bit of fluids. I contacted [facility], but it looks like a few days ago, Dr. Lara did not accept the patient so I contacted Dr. Cano from Gastroenterology department. He talked to B, I believe the mosaic technician, about this patient, but was not accepted either. I believe because they are on diversion or they do not have any beds, so it has been recommended by Gastroenterology department to place a feeding jejunostomy tube. I explained that to the patient, and the patient would like to have some time to think about it. I will re-evaluate this possibility in the morning with the patient. OBJECTIVE: Vital Signs: Temperature 98.4 degrees, pulse 104, respiratory rate 14, blood pressure 113/82, oxygen saturation 100% on room air. HEENT: Head normocephalic, no trauma. PERRLA. Neck: Neck is supple. No JVD. No masses. Central trachea. Chest: Clear to auscultation. No wheezing. No rales. Abdomen: Some tenderness to palpation at the level of the periumbilical area. Bowel sounds present. She does have a hard mass related to her gastric stimulator. Extremities: No edema, no clubbing, no cyanosis. Neurological: This patient is alert. She is oriented x3. No focal deficits. DIAGNOSTIC STUDIES: Sodium 141, potassium 3.5, chloride 115, bicarbonate 19, BUN 6, creatinine 1.4, glucose 144, calcium 6.5, magnesium 1.8, albumin 2.2. ASSESSMENT AND PLAN: 1. Severe gastroparesis and esophageal stenosis with nausea/vomiting and abdominal pain, severe dysphagia. It looks like she tolerated just a little bit of fluid today. She is still having symptoms. I contacted [facility] to see if they can take this patient, but this had been declined a few a couple days ago. Dr. Cano from Gastroenterology department contacted [facility] again, and it looks like the they are not taking patients because they are either on diversion or not having beds. Gastroenterology department has recommended to place a feeding jejunostomy tube. I talked to the patient about it, but she states that she wants to think about the procedure. She would like to talk to some family members and let me know in the morning. Her regular [employer] mosaic technician is Dr. Duron. 2. Diabetes, stable. Continue to monitor. 3. Acute kidney injury on chronic kidney disease stage 5. Is recovered slowly. It looks like this is her baseline. 4. Hypokalemia, resolved. 5. Hypophosphatemia. We will monitor. 6. Insomnia. Continue with this patient's Ambien. cc: Kiet Manning MD
[2019-02-19] MEDS: AMBIEN PO PRN (21:41)
--- NOTE | 2019-02-19 23:47 | PROVIDER PROGRESS NOTE ---
Progress Note SUBJECTIVE: No acute overnight events. Nausea controlled. No vomiting. Tolerating minimal clears. Continued abdominal pain. OBJECTIVE: GEN: awake, alert, NAD HEENT: anicteric, MMM NECK: supple, no jvd PULM: CTAB, no wheezing CV: RRR, no murmurs ABD: soft ND, mild diffuse TTP, NABS EXT: no cce NEURO: nonfocal LABS: 02/19/19 02/19/19 05:44 05:44 Sodium 141 Potassium 3.5 D Chloride 115 H Carbon Dioxide 19 L Anion Gap 7 BUN 6 L Creatinine 1.4 H Glucose 144 H Albumin 2.2 L A/P: Ms. Kaleigh Bobby is a 43-year-old woman with a complicated history of poorly controlled insulin-dependent diabetes, gastroparesis status post pacemaker, history of NSAID-induced esophageal stricture with severe esophagitis requiring serial dilations at [facility] who presented with intractable nausea, vomiting and inability to tolerate PO found to have CATERINA, hypokalemia, low bicarb from volume depletion. EGD on admission showed continue significant stenosis in the mid-esophagus, which is the cause of her presentation. She is non-compliant with PPI therapy. I have discussed need for further intervention with GI precision structural metal fitter at [facility], Dr. Sellers, who discussed findings with patient's primary GI, Dr. Ford. It was recommended that patient have surgical evaluation for feeding jejunostomy placement. # Intractable nausea and vomitin/2 to esophageal stricture - continue clear liquid diet, do not advance diet - continue antiemetics # History of esophageal stricture: as above; surgical evaluation for feeding jejunostomy # Hypokalemia: 2/2 GI losses; replete prn # Gastroparesis: antimetics as above # CATERINA: improving; continue IVFs # Anemia: stable # History of PUD seen on EGD earlier this year; continue PPI BID # DM2: defer mgmt to primary # Constipation: continue miralax BID # Protein calorie malnutrition: on TPN Will follow with you. Please call with questions
[2019-02-20] MEDS: PHENERGAN IV PRN ×6 (01:24→23:26)
[2019-02-20] MEDS: SODIUM CHLORIDE 0.9% INJ SCH ×3 (01:30→04:00)
[2019-02-20] MEDS: NORCO-5 PO PRN ×3 (01:32→20:49)
[2019-02-20] MEDS: REGLAN IV SCH ×4 (04:00→20:50)
[2019-02-20] MEDS: PROTONIX IV SCH ×2 (04:00→18:07)
[2019-02-20] MEDS: SODIUM CHLORIDE 0.9% INJ PRN (05:56)
[2019-02-20 07:24] LABS: CREATININE 1.3 mg/dL (0.5-0.9); MAGNESIUM 1.9 mg/dL (1.5-2.7); PHOSPHORUS 3.9 mg/dL (2.7-4.5); POTASSIUM 3.3 mmol/L (3.5-5.1)
[2019-02-20 07:28] LABS: BASO# 0.01 X1000 (0.0-0.2); BASO% 0.2 % (0.0-0.8); EOS# 0.09 X1000 (0.0-0.7); EOS% 2.1 % (0.0-10.0); HEMATOCRIT 23.7 % (37.0-47.0); HEMOGLOBIN 7.9 g/dL (12.0-16.0); LYMPH# 1.78 X1000 (1.2-3.4); LYMPH% 41.3 % (20.5-51.1); MCH 26.4 PG (27-31); MCHC 33.3 g/dL (33-37); MCV 79.3 FL (81-99); MONO# 0.48 X1000 (0.11-0.59); MONO% 11.1 % (1.7-9.3); MPV 11.8 FL (7.4-10.4); NEUT# 1.95 X1000 (1.4-6.5); NEUT% 45.3 % (42.2-75.2); PLT 248 X1000 (130-400); RBC 2.99 XMIL (4.2-5.4); WBC 4.31 X1000 (4.8-10.8)
[2019-02-20] MEDS: HUMULIN R SUBQ SCH ×3 (07:30→17:13)
[2019-02-20 08:05] LABS: CALCIUM 7.1 mg/dL (8.8-10.2)
[2019-02-20] MEDS ORDERED: POTASSIUM CHLORIDE 40 MEQ/SWI 40 MEQ/100 ML IVPB IV ONE (09:03)
[2019-02-20] MEDS: MIRALAX PO SCH (09:16)
--- NOTE | 2019-02-20 10:06 | PROVIDER PROGRESS NOTE ---
Progress Note SUBJECTIVE: No acute overnight events. Patient complains of some odynophagia. Abdominal pain controlled. No N/V. Tolerating few clears. +BMs. OBJECTIVE: Last Vital Signs Temp 98.4 F 02/20/19 07:28 Pulse 108 H 02/20/19 07:28 Resp 16 02/20/19 07:28 BP 138/84 02/20/19 07:28 Pulse Ox 100 02/20/19 07:28 Height 5 ft 4 in Weight 152 lb 6 oz OBJECTIVE: GEN: awake, alert, NAD HEENT: anicteric, MMM NECK: supple, no jvd PULM: CTAB, no wheezing CV: RRR, no murmurs ABD: soft ND, mild diffuse TTP, NABS EXT: no cce NEURO: nonfocal LABS: 02/20/19 02/20/19 05:49 05:49 WBC 4.31 L Hgb 7.9 L MCV 79.3 L Plt Count 248 Sodium 140 Potassium 3.3 L Chloride 113 H Carbon Dioxide 19 L BUN 7 L Creatinine 1.3 H Glucose 131 H A/P: Ms. Kaleigh Bobby is a 43-year-old woman with a complicated history of poorly controlled insulin-dependent diabetes, gastroparesis status post pacemaker, history of NSAID-induced esophageal stricture with severe esophagitis requiring serial dilations at [facility] who presented with intractable nausea, vomiting and inability to tolerate PO. On presentation, she was found to have CATERINA, hypokalemia, low bicarb from volume depletion. EGD on admission showed significant stenosis in the mid-esophagus, which could not be traversed with endoscope. She is non-compliant with PPI therapy. I have discussed need for further intervention with GI at [facility] who recommends feeding jejunostomy placement in the interim as she will need multiple outpatient serial esophageal dilations. # Intractable nausea and vomitin/2 to esophageal stricture - continue clear liquid diet, do not advance diet - continue antiemetics # History of esophageal stricture: as above; surgical evaluation for feeding jejunostomy pending; discussed with Dr. Mobley # Hypokalemia: 2/2 GI losses; replete prn # Gastroparesis: antimetics as above; glycemic control # CATERINA: improving # Anemia: stable; no overt bleeding # History of PUD seen on EGD earlier this year; continue PPI BID # DM2: defer mgmt to primary # Constipation: continue miralax BID # Protein calorie malnutrition: on TPN Will follow with you. Please call with questions
[2019-02-20] MEDS ORDERED: MORPHINE IV ONE (11:33)
[2019-02-20] MEDS ORDERED: TPN ELECTROLYTES 20 ML, MAGNESIUM SULFATE 5 MEQ, M.V.I.-12 10 ML, MTE CONCENTRATE 1 ML,... IV SCH ×8 (12:00)
--- NOTE | 2019-02-20 12:08 | PROGRESS NOTE ---
DATE: 02/20/2019 SUBJECTIVE: No acute events overnight. She seems to be tolerating just liquids. I discussed the case yesterday with Dr. Cano from Gastroenterology Department, and it has been recommended to place a feeding jejunostomy tube. I called [facility] yesterday, and they are not planning to take the patient. Dr. Cano from Gastroenterology Department already called them again yesterday, and discussed the case with the GI doctor who recommended a feeding jejunostomy placement in the interim. She will need multiple outpatient esophageal dilation. I discussed with the patient the further plan yesterday, and she requested to wait so she can think about it during the night and let me know today in the morning. When I talked to her, she states that she is okay that she will have the procedure so I placed a consult for surgery department to evaluate this patient. OBJECTIVE: Vital Signs: Temperature 98.4 degrees, pulse 108, respiratory rate 16, blood pressure 138/84 and oxygen saturation 100% on room air. HEENT: Head normocephalic. No trauma. PERRLA. Neck: Supple. No JVD. No masses. Central trachea. Chest: Clear to auscultation. No wheezing. No rales. Abdomen: Soft. Some tenderness to palpation at the level of the periumbilical area. Bowel sounds present. She does have a device on her belly that is related to her gastric stimulator. Extremities: No edema. No clubbing. No cyanosis. Neurological: The patient is alert and oriented x3. No focal deficits. LABORATORY: WBC 4.3, hemoglobin 7.9, hematocrit 23.7, and platelets 248,000. Sodium 140, potassium 3.3, chloride 103, bicarbonate 19, BUN 7, creatinine 1.3, glucose 131, calcium 7.1, magnesium 1.9, and phosphorus 3.9. ASSESSMENT AND PLAN: 1. Severe gastroparesis and esophageal stenosis with nausea/vomiting and abdominal pain, severe dysphagia. Like, I mentioned before, it has been discussed with Gastroenterology Department at [facility] about sending this patient over there, but they declined that option, but it has been suggested to place a feeding jejunostomy tube as she will need multiple outpatient serial esophageal dilations. This has been explained to the patient. She seems to understand, and she will be evaluated by Surgery Department. 2. Diabetes, stable. Continue to monitor. 3. Acute kidney injury on chronic kidney disease. She is recovering slowly. It looks like this is her baseline. 4. Hypokalemia, resolved. 5. Hypophosphatemia, will monitor. 6. Insomnia. We will continue with this patient's Ambien. 7. The patient is complaining with moderate to severe pain on his abdominal area, and chest after drinking fluids. She has requested a dose of either morphine or Dilaudid. I will give her a times 1 dose of morphine at this moment. cc: Kiet Manning MD
--- NOTE | 2019-02-20 12:17 | GENERAL SURGERY CONSULTATION ---
DATE: 02/20/2019 REASON FOR CONSULTATION: Severe esophageal stricture and need for enteral feeding access. HISTORY OF PRESENT ILLNESS: This is a 43-year-old woman with a chronic severe esophageal stricture secondary to NSAID use with esophagitis and ulcers who has undergone multiple EGDs and dilations both here in [place] and at [facility] with Dr. Ford. She also has gastroparesis and had a gastric pacemaker placed. This seemed to help for a while with her gastroparesis problems, but the esophageal stricture now has reached a point she cannot take in adequate nutrition. She says she has severe dysphagia with vomiting or regurgitation of solids any thick liquids such as Ensure. She can drink water or Gatorade without any trouble, but that is the extent of what she can tolerate. She underwent EGD dilation at [facility] last month but has progressively worsened. An EGD during this admission showed a 3 to 4 mm midesophageal stricture. Biopsies have also been done which are benign in the past. PAST MEDICAL HISTORY: 1. Severe esophageal stricture. 2. Peptic ulcer disease. 3. Diabetic neuropathy. 4. Diabetic related gastroparesis. 5. Hypertension. PAST SURGICAL HISTORY: Cholecystectomy. A PEG tube placement, then removal. Gastric pacemaker placement. Port-A-Cath replacement. SOCIAL HISTORY: She is a former smoker. No alcohol. She does use marijuana. No other illicit drug use. ALLERGIES: No known drug allergies. HOME MEDICATIONS: Ambien and Reglan. FAMILY HISTORY: Reviewed and noncontributory. REVIEW OF SYSTEMS: Ten systems reviewed and negative except as noted above. PHYSICAL EXAMINATION: Vital Signs: Temperature 98.4 degrees, pulse 108, respirations 16, blood pressure 138/84, O2 saturation 100%. General: She is a well-developed female in no distress who looks her stated age. HEENT: Normocephalic, atraumatic. Extraocular muscles intact. Pupils equal, round, reactive to light. Sclerae anicteric. Moist mucous membranes. Hearing grossly normal. Neck: Supple no thyromegaly. CV: Regular rate and rhythm. Lymph: No cervical, supraclavicular or periumbilical lymph nodes appreciated. CV: Regular rate and rhythm. Respiratory: Bilateral equal breath sounds. No work of breathing. GI: Soft, mildly tender. No rebound or guarding. No organomegaly. Incisions are well healed. Extremities: No clubbing, cyanosis, or edema. Skin: Warm and dry. No rash. LABORATORY: White blood cell count 4.3, hemoglobin 7.9, hematocrit 23.7, platelet count 248,000, sodium 140, potassium 3.3, chloride 113, CO2 19, BUN 7, creatinine 1.3, glucose 131. Albumin yesterday was 2.2. ASSESSMENT AND PLAN: 43-year-old female with severe esophageal stricture requiring serial dilations. There is some thought toward a future esophageal stent at [facility]. However, currently, she would benefit from enteral feeding access with a J-tube. A G-tube was not recommended by her cripple chaser given her gastroparesis despite the pacemaker placement, so I discussed placement of the feeding jejunostomy with her including risks and benefits of wound infection, incisional hernia, injury to small bowel and future small bowel obstruction, tube malfunction or dislodgement and other imponderables. She understands and agrees to proceed. We will attempt to do this tomorrow. cc: Samm Mobley MD
[2019-02-20] MEDS: DULCOLAX PR SCH (12:22)
[2019-02-20] MEDS: LIPOSYN 20% 250 ML IV SCH (12:23)
[2019-02-20] MEDS: AMBIEN PO PRN (23:27)
[2019-02-21] MEDS: HUMULIN R SUBQ SCH ×4 (02:40→17:27)
[2019-02-21] MEDS: DULCOLAX PR SCH ×2 (02:40→15:26)
[2019-02-21] MEDS: MIRALAX PO SCH ×2 (02:41→15:26)
[2019-02-21] MEDS: PROTONIX IV SCH ×2 (05:37→17:27)
[2019-02-21] MEDS: SODIUM CHLORIDE 0.9% INJ SCH (05:38)
[2019-02-21] MEDS: REGLAN IV SCH ×3 (05:38→15:30)
[2019-02-21 06:20] LABS: BASO# 0.01 X1000 (0.0-0.2); BASO% 0.2 % (0.0-0.8); EOS# 0.06 X1000 (0.0-0.7); EOS% 1.4 % (0.0-10.0); MCH 25.9 PG (27-31); MCHC 31.8 g/dL (33-37); MCV 81.5 FL (81-99); MONO# 0.44 X1000 (0.11-0.59); MONO% 10.5 % (1.7-9.3); MPV 11.6 FL (7.4-10.4); NEUT% 49.9 % (42.2-75.2); PLT 226 X1000 (130-400); RDW 20.3 % (11.5-14.5); WBC 4.21 X1000 (4.8-10.8)
[2019-02-21 06:39] LABS: CREATININE 1.4 mg/dL (0.5-0.9); MAGNESIUM 1.8 mg/dL (1.5-2.7); PHOSPHORUS 3.4 mg/dL (2.7-4.5); POTASSIUM 3.8 mmol/L (3.5-5.1)
[2019-02-21] MEDS: PHENERGAN IV PRN ×5 (06:40→22:34)
[2019-02-21] MEDS: SODIUM CHLORIDE 0.9% INJ PRN ×2 (06:41→22:34)
[2019-02-21] MEDS ORDERED: CALCIUM GLUCONATE 1 GM in NS 50 ML IV ONE (06:52)
[2019-02-21] MEDS ORDERED: KEFZOL 1 GM/D5W 1 GM/50 ML IVPB IV ONE (11:30)
[2019-02-21] MEDS ORDERED: NS 500 ML IV SCH (11:45)
--- NOTE | 2019-02-21 13:23 | GENERAL SURGERY PROGRESS NOTE ---
DATE: 02/21/2019 SUBJECTIVE: The patient feels the same. She has no new complaints. She notes that she started spotting for her period yesterday and has been bleeding more regularly today. OBJECTIVE: Vital Signs: She is afebrile. Vital signs are stable. Pulse is 107, though. Blood pressure 128/79. General: She is awake, alert, oriented x3. No acute distress. Gastrointestinal: Soft, nontender, nondistended. LABORATORY: White blood cell count 4.2, hemoglobin 7.0, hematocrit 22.0. Hemoglobin yesterday 7.9 and hematocrit 23.7. On 02/16/2019, hemoglobin was 11.1, hematocrit 32.0. ASSESSMENT AND PLAN: A 43-year-old female with severe esophageal stricture. She cannot tolerate much more than clear liquids by mouth. She has had a significant drop in her hemoglobin and hematocrit. The etiology is unclear. The possibility is gastrointestinal bleed. Also, her monthly cycle has begun. I will talk to Dr. Cano about at least a lower endoscopy and, if it comes to it, maneuvers to evaluate her stomach and duodenum if necessary. We will delay her feeding tube placement at this time. cc: Samm Mobley MD
--- NOTE | 2019-02-21 14:17 | PROGRESS NOTE ---
DATE: 02/21/2019 SUBJECTIVE: This patient's hemoglobin is still dropping, today is 7. I will give her a unit of blood. Case has been discussed with Surgery Department. They will stop the procedure today and probably they will do it tomorrow, the day after. Also I talked to the Gastroenterology Department, Dr. Haq. He wants the feeding jejunostomy tube to be placed first. As per Dr. Haq, he will discuss the case with Surgery so we can have a plan. OBJECTIVE: Vital Signs: Temperature 99.3 degrees, pulse 100, respiratory rate 12, blood pressure 133/84, oxygen saturation 100% on room air. HEENT: Head normocephalic. No trauma. PERRLA. Neck: Supple. No JVD. No masses. Central trachea. Chest: Clear to auscultation. No wheezing. No rales. Abdomen: Soft. Tenderness to palpation at the level of the epigastric and periumbilical area. Positive bowel sounds. She has a device on her belly that is related to her gastric stimulator. Extremities: No edema. No clubbing. No cyanosis. Neurological: The patient is alert and oriented x3. No focal deficits. LABORATORY: WBC 4.2, hemoglobin 7, hematocrit 22, platelets 226,000. Sodium 142, potassium 3.8, chloride 115, bicarbonate 19, BUN 9, creatinine 1.4, glucose 178, calcium 7, albumin 2.4, magnesium 1.8. ASSESSMENT AND PLAN: 1. Severe gastroparesis and esophageal stenosis with nausea, vomiting, abdominal pain, severe dysphagia. We tried to send this patient to [facility] but after discussion, they have suggested to put a feeding jejunostomy tube by Surgery Department. We were about to do it today, but this patient's hemoglobin dropped to 7. She will receive 1 unit of PRBCs and hopefully she can be rescheduled in 1 or 2 days. The case has been discussed with Surgery Department and Gastroenterology Department. As per Gastroenterology, Dr. Haq, he prefers to go ahead and get the tube first to see if he is able to do a colonoscopy. 2. Diabetes, stable. Continue to monitor. 3. Acute kidney injury on chronic kidney disease. This is her baseline. 4. Hypokalemia, resolved. 5. Hypophosphatemia. We will monitor. 6. Insomnia. Continue with this patient's Ambien. 7. Anemia. This patient's hemoglobin has been dropping. I will transfuse this patient 1 unit at this moment and we will recheck again the hemoglobin in the morning. cc: Kiet Manning MD
[2019-02-21] MEDS: TPN ELECTROLYTES 20 ML, MAGNESIUM SULFATE 5 MEQ, M.V.I.-12 10 ML, MTE CONCENTRATE 1 ML,... IV SCH ×9 (14:24)
[2019-02-21] MEDS: LIPOSYN 20% 250 ML IV SCH (14:24)
[2019-02-21] MEDS: NORCO-5 PO PRN (15:23)
--- NOTE | 2019-02-21 18:48 | GASTROENTEROLOGY PROGRESS NOTE ---
DATE: 02/21/2019 Resting in bed. She is feeling better. She denies any fevers, rigors, chills. She denies any nausea or vomiting today, she was able to move her bowels 2 days ago. She was able to eat 75% of her meal yesterday. She is currently n.p.o. today for J-tube placement by Dr. Mobley. OBJECTIVE: Vital signs: Temperature 99.1 degrees, pulse 107, respiratory 16, blood pressure 128/79, saturating 100% on room air. Body weight of 159 pounds, 14.4 ounces. BMI 27 kg/m2. GEN: lying in bed, in no acute distress. HEENT: Pale conjunctivae. No icterus. Neck: Supple. Abdomen: Soft, nontender, nondistended. No guarding or rebound. Extremities: No cyanosis, clubbing. Neurologic: Alert, awake, oriented x3. LABS: Hemoglobin and hematocrit is 7 and 22, white count of 4.1, platelet count of 226,000, sodium 142, potassium 3.8, chloride 115, bicarb 99 with BUN of 9, creatinine 0.4, glucose of 178, calcium 7, phosphorus 3.4, magnesium 1.8, and albumin of 2.4. Urine culture showing mixed supriya. IMPRESSION AND PLAN: 1. Intractable nausea, vomiting, secondary to esophageal stricture and gastroparesis. She will continue on clear liquid diet. Currently she is NPO for G-tube placement by Dr. Mobley. Continue antiemetics. We will also continue PPIs b.i.d. 2. Constipation. Continue MiraLAX twice daily and Dulcolax b.i.d. 3. Type 2 diabetes. Continue medications per primary team. 4. History of peptic ulcer disease seen on EGD earlier this year. She will continue on PPIs b.i.d. 5. Anemia. Continue to watch for now and transfuse as needed. No signs of active bleeding. 6. Gastroparesis. Continue to take small frequent meals. Keep a good control of diabetes. 7. Esophageal stricture. She will continue follow with Dr. Jaramillo at [facility]. She will be seeing him early next week at [facility] for serial esophageal dilation and possible esophageal stent placement. 8. Protein calorie malnutrition on TPN. Hopefully after she gets her G-tube placement she will be on G-tube feeding. 9. Gastroparesis. Continue on Reglan 10 mg IV q. 6 hours. Hold for side effects like Tardive dyskinesia. 10. The above plans with the patient and all questions answered. Please call us with any further questions. cc: MD Yandel Silva MD MTDD
[2019-02-21] MEDS: AMBIEN PO PRN (22:34)
[2019-02-22] MEDS: DULCOLAX PR SCH ×3 (00:35→20:57)
[2019-02-22] MEDS: REGLAN IV SCH ×5 (00:36→21:05)
[2019-02-22] MEDS: MIRALAX PO SCH ×3 (00:36→20:59)
[2019-02-22] MEDS: NORCO-5 PO PRN ×2 (00:40→08:19)
[2019-02-22] MEDS: HUMULIN R SUBQ SCH ×4 (03:59→16:11)
[2019-02-22] MEDS: PROTONIX IV SCH ×2 (04:21→19:24)
[2019-02-22] MEDS: SODIUM CHLORIDE 0.9% INJ PRN (04:21)
[2019-02-22] MEDS: SODIUM CHLORIDE 0.9% INJ SCH ×3 (04:22→16:09)
[2019-02-22] MEDS: PHENERGAN IV PRN ×4 (04:22→20:33)
[2019-02-22 06:47] LABS: MAGNESIUM 1.8 mg/dL (1.5-2.7); PHOSPHORUS 3.7 mg/dL (2.7-4.5)
[2019-02-22 06:52] LABS: PREALBUMIN 14.2 mg/dL (20-40)
[2019-02-22 07:06] LABS: BASO# 0.01 X1000 (0.0-0.2); BASO% 0.2 % (0.0-0.8); EOS# 0.08 X1000 (0.0-0.7); EOS% 1.8 % (0.0-10.0); HEMATOCRIT 25.4 % (37.0-47.0); HEMOGLOBIN 8.7 g/dL (12.0-16.0); LYMPH# 1.55 X1000 (1.2-3.4); LYMPH% 34.1 % (20.5-51.1); MCH 27.6 PG (27-31); MCHC 34.3 g/dL (33-37); MCV 80.6 FL (81-99); MONO# 0.53 X1000 (0.11-0.59); MONO% 11.7 % (1.7-9.3); MPV 12.6 FL (7.4-10.4); NEUT# 2.37 X1000 (1.4-6.5); NEUT% 52.2 % (42.2-75.2); PLT 195 X1000 (130-400); RBC 3.15 XMIL (4.2-5.4); WBC 4.54 X1000 (4.8-10.8)
[2019-02-22 07:16] LABS: CALCIUM 7.2 mg/dL (8.8-10.2); CREATININE 1.3 mg/dL (0.5-0.9); POTASSIUM 4.1 mmol/L (3.5-5.1)
--- NOTE | 2019-02-22 09:48 | PROVIDER PROGRESS NOTE ---
Progress Note SUBJECTIVE: Patient transfused 1 unit pRBC yesterday. No acute overnight events. She reports some abdominal discomfort, but no vomiting. She had normal bowel stool this AM without melena or bright red blood. She denies any change in her bowel habits. OBJECTIVE: Last Vital Signs Temp 98.6 F 02/22/19 08:00 Pulse 104 H 02/22/19 08:00 Resp 20 02/22/19 08:00 BP 136/95 02/22/19 08:00 Pulse Ox 100 02/22/19 08:00 Height 5 ft 4 in Weight 164 lb 2 oz OBJECTIVE: GEN: awake, alert, NAD HEENT: anicteric, MMM NECK: supple, no jvd PULM: CTAB, no wheezing CV: mild tachycardia, regular, no murmurs ABD: soft ND, mild diffuse TTP, NABS EXT: no cce NEURO: nonfocal LABS: 02/22/19 02/22/19 05:56 05:56 WBC 4.54 L Hgb 8.7 L D Plt Count 195 Sodium 140 Potassium 4.1 Chloride 113 H Carbon Dioxide 20 L BUN 10 Creatinine 1.3 H Glucose 198 H A/P: Ms. Kaleigh Bobby is a 43-year-old woman with a complicated history of poorly controlled insulin-dependent diabetes, gastroparesis status post pacemaker, history of NSAID-induced esophageal stricture with severe esophagitis requiring serial dilations at [facility] who presented with intractable nausea, vomiting, and dysphagia in the setting of persistent stricture seen on EGD. She is currently NPO for surgical j-tube placement by Dr. Mobley today. She has chronic anemia and likely has ongoing slow oozing from known PUD and esophagitis. No overt bleeding. Hemogloblin over-corrected with 1 unit pRBC transfusion yesterday. Discussed plan with patient and Dr. Mobley. Per patient, she is scheduled for repeat esophageal dilation next week at [facility]. # Esophageal stricture: NPO for surgical j-tube placement # N/V: controlled # Anemia: 2/2 to esophagitis, known PUD: continue PPI BID; trending H/H daily, transfuse for hgb <7, goal 7-8 # Gastroparesis: continue antiemetics prn # Malnutrition: on TPN; nutrition following, appreciate assistance with enteral nutrition once j-tube cleared for use # Constipation: controlled with bowel regimen # IDDM2: SSI per primary Will follow with you. Please call with questions
[2019-02-22] MEDS ORDERED: KEFZOL 1 GM/D5W 1 GM/50 ML IVPB IV ONE (13:00)
[2019-02-22] MEDS ORDERED: DIPRIVAN 1% ONE (13:19)
[2019-02-22] MEDS ORDERED: KEFZOL 1 GM/D5W 1 GM/50 ML IVPB ONE (13:56)
[2019-02-22] MEDS ORDERED: XYLOCAINE-MPF 2% ONE (14:00)
[2019-02-22] MEDS ORDERED: QUELICIN (DOSE) ONE (14:00)
[2019-02-22] MEDS ORDERED: FENTANYL ONE ×2 (14:01→14:51)
[2019-02-22] MEDS ORDERED: ZOFRAN ONE (14:13)
[2019-02-22] MEDS ORDERED: ROBINUL ONE (14:47)
[2019-02-22] MEDS ORDERED: DILAUDID ONE (14:54)
[2019-02-22] MEDS: LIPOSYN 20% 250 ML IV SCH (16:03)
[2019-02-22] MEDS: TPN ELECTROLYTES 20 ML, MAGNESIUM SULFATE 5 MEQ, M.V.I.-12 10 ML, MTE CONCENTRATE 1 ML,... IV SCH ×9 (16:04)
[2019-02-22] MEDS: MORPHINE IV PRN ×2 (16:23→20:30)
--- NOTE | 2019-02-22 16:49 | OPERATIVE NOTE ---
PROCEDURE DATE: 02/22/2019 PREOPERATIVE DIAGNOSES: 1. Severe esophageal stricture. 2. Dysphagia. 3. Protein calorie malnutrition. POSTOPERATIVE DIAGNOSES: 1. Severe esophageal stricture. 2. Dysphagia. 3. Protein calorie malnutrition. PROCEDURE: Open jejunostomy placement. SURGEON: Samm Mobley MD. ANESTHESIA: General. ESTIMATED BLOOD LOSS: 10 mL. COMPLICATIONS: None apparent. SPECIMENS: None. FINDINGS: The small bowel was normal in caliber. There were no adhesions or obstructive lesions. TECHNIQUE: The patient was brought to the operating room and placed supine on the table. General anesthesia was induced. She was prepped and draped in usual sterile fashion. A periumbilical midline incision was made with a 10 blade down through the skin and subcutaneous fat sharply. Cautery was used to continue dissection through the subcutaneous fat down to the fascia. The fascia and peritoneum were opened with cautery without injuring the underlying bowel. I then identified the terminal ileum and ran the small bowel. It was all normal. The ligament of Treitz was identified and approximately 20 cm distal to the ligament of Treitz a 3-0 silk pursestring suture was placed on the anti mesenteric side of the jejunum. A jejunotomy was made with cautery and hemostat, a small stab incision was made in the left lateral abdomen. A 14-gauge red Zavala catheter was then brought in through this skin incision, into the peritoneal cavity and then inserted into the jejunotomy. The catheter was directed distally. Of note, I did cut the tip of the catheter off with the scissors. After I had a good length of catheter down the jejunal limb, the pursestring suture was then cinched down snug around the catheter at its entry point on the jejunum. Multiple interrupted 3-0 silk seromuscular bites were then made more proximally along the anti mesenteric side of the jejunum to create a Witzel-type tunnel. I then tacked the small bowel up to the peritoneum in several locations to keep it in orientation and hopefully to prevent any volvulus. All instrument and sponge counts were accounted for. I then closed the peritoneum and fascia with a running #1 looped Maxon suture. The skin was closed with skin clips. There were no apparent complications. The catheter was anchored to the skin with 2-0 nylon suture. She was awakened in stable condition and transferred to the recovery room. cc: Samm Mobley MD
--- NOTE | 2019-02-22 16:54 | PROGRESS NOTE ---
DATE: 02/22/2019 SUBJECTIVE: Patient just came back from surgery. Pending the report at this moment. She is sleepy, but she is opening her eyes when I call her name. Her mother is at the bedside. We will restart the TPN. We will continue with the same management for now. OBJECTIVE: Vital Signs: Temperature 98.9 degrees, pulse 104, respiratory rate 20, blood pressure 117/79, oxygen saturation 96% on 2 L of nasal cannula. HEENT: Head normocephalic, no trauma. PERRLA. Neck: Supple. No JVD. No masses. Central trachea. Chest: Clear to auscultation. No wheezing. No rales. Abdomen: Soft. Her abdomen is covered with a dressing, which I have not removed. Extremities: No edema, no clubbing, no cyanosis. Neurological: This patient is sleepy, but arousable. She is answering my question with yes or no but she is really sleepy. LABORATORY: WBC 4.5, hemoglobin 8.7, hematocrit 25.4, platelets 195,000. Sodium 140, potassium 4.1, chloride 113, bicarbonate 20, BUN 10, creatinine 1.3, glucose 198, calcium 7.2, magnesium 1.8. ASSESSMENT AND PLAN: 1. Severe gastroparesis and esophageal stenosis with nausea, vomiting, abdominal pain, severe dysphagia. We tried to send this patient to [facility], but after discussion, they have suggested to put a feeding jejunal jejunostomy tube by Surgery Department, which we did today. Gastroenterology department already on the case. I believe this patient can be hopefully discharged in the next 48 hours to 72 hours, depending on her progression and general condition. 2. Diabetes, stable. Continue to monitor. 3. Acute kidney injury on chronic kidney disease. This is her baseline. 4. Hypokalemia resolved. 5. Hypophosphatemia. Continue to monitor. 6. Insomnia. Continue with same management. 7. Anemia. This patient hemoglobin dropped and we transfused this patient 1 unit of a packed red blood cells, I will check the hemoglobin and hematocrit tomorrow again. cc: Kiet Manning MD
[2019-02-22] MEDS: AMBIEN PO PRN (20:49)
[2019-02-22] MEDS: TYLENOL PO PRN (21:02)
[2019-02-23] MEDS: MORPHINE IV PRN ×6 (00:39→21:18)
[2019-02-23] MEDS: PHENERGAN IV PRN ×6 (00:40→21:18)
[2019-02-23] MEDS: SODIUM CHLORIDE 0.9% INJ SCH ×3 (04:21→18:52)
[2019-02-23] MEDS: PROTONIX IV SCH ×2 (04:21→17:33)
[2019-02-23] MEDS: REGLAN IV SCH ×4 (04:22→21:20)
[2019-02-23] MEDS: HUMULIN R SUBQ SCH ×5 (05:47→22:33)
--- NOTE | 2019-02-23 06:49 | GENERAL SURGERY PROGRESS NOTE ---
DATE: 02/23/2019 SUBJECTIVE: Patient seems to be doing okay. She has had a little bit of a fever, which we have given Tylenol. She seems to respond appropriately. OBJECTIVE: Vital Signs: Patient's current temperature 100.3 degrees. Vital signs remain stable. General: No acute distress. Cardiovascular: Regular rate and rhythm. Lungs: Grossly clear. Abdomen: Soft, appropriately tender. Dressing intact. ASSESSMENT AND PLAN: A 43-year-old female status post open jejunostomy placement. #1 postop state. At this time, she is to start tube feeds. We will monitor her fevers but likely postoperative atelectasis, but if it does not improve, may need to start considering other options. cc: Chidi Johnson MD
[2019-02-23 07:52] LABS: BASO# 0.02 X1000 (0.0-0.2); BASO% 0.3 % (0.0-0.8); EOS# 0.05 X1000 (0.0-0.7); EOS% 0.7 % (0.0-10.0); HEMATOCRIT 30.4 % (37.0-47.0); HEMOGLOBIN 10.2 g/dL (12.0-16.0); LYMPH# 0.85 X1000 (1.2-3.4); LYMPH% 12.3 % (20.5-51.1); MCH 27.3 PG (27-31); MCHC 33.6 g/dL (33-37); MCV 81.5 FL (81-99); MONO# 0.78 X1000 (0.11-0.59); MONO% 11.3 % (1.7-9.3); MPV 11.7 FL (7.4-10.4); NEUT# 5.21 X1000 (1.4-6.5); NEUT% 75.4 % (42.2-75.2); PLT 186 X1000 (130-400); RBC 3.73 XMIL (4.2-5.4); RDW 19.4 % (11.5-14.5); WBC 6.91 X1000 (4.8-10.8)
[2019-02-23 08:08] LABS: ALBUMIN 2.4 g/dL (3.5-5.0); CALCIUM 7.4 mg/dL (8.8-10.2); CREATININE 1.4 mg/dL (0.5-0.9); MAGNESIUM 1.7 mg/dL (1.5-2.7); PHOSPHORUS 3.7 mg/dL (2.7-4.5); POTASSIUM 5.1 mmol/L (3.5-5.1); PREALBUMIN 15.2 mg/dL (20-40)
[2019-02-23] MEDS: TYLENOL PO PRN (08:14)
[2019-02-23] MEDS: MIRALAX PO SCH ×2 (08:37→21:20)
[2019-02-23] MEDS: DULCOLAX PR SCH ×2 (08:49→21:19)
--- NOTE | 2019-02-23 12:24 | Diag Imaging Result Doc PS360 ---
EXAM: CHEST-PORTABLE HISTORY: R/O pneumonia.. Fever TECHNIQUE: Portable chest single view COMPARISON: 10/14/2018 FINDINGS: Poor inspiratory effort. No change in the right-sided portacatheter. No pneumothorax. Heart is mildly prominent. No consolidation. No pleural effusions identified. IMPRESSION: No pneumonia. Electronically signed by Hebert Soto 02/23/2019 12:22 PM
[2019-02-23] MEDS: LIPOSYN 20% 250 ML IV SCH (17:33)
[2019-02-23] MEDS: TPN ELECTROLYTES 20 ML, MAGNESIUM SULFATE 5 MEQ, M.V.I.-12 10 ML, MTE CONCENTRATE 1 ML,... IV SCH ×9 (17:33)
--- NOTE | 2019-02-23 17:44 | PROGRESS NOTE ---
DATE: 02/23/2019 SUBJECTIVE: This patient was feeling better. She is still complaining of some abdominal discomfort due to the surgery. She has been having some episodes of fever especially last night and today in the morning, and also she had some high-grade temperature. I got an x-ray which is negative for new consolidation and I asked for a blood culture and urine culture. She is postoperative day number 1 of feeding jejunostomy placement. OBJECTIVE: Vital Signs: Temperature 98.7 degrees, pulse 103, respiratory rate 20, blood pressure 111/84, oxygen saturation 99% on room air. HEENT: Head is normocephalic and atraumatic. PERRLA. Neck: Supple. No JVD. No masses. Central trachea. Chest: Clear to auscultation. No wheezing or rales. Abdomen: Soft. Her abdomen is covered with a dressing, it is soft but painful around the surgical area. Extremities: No edema, no clubbing, no cyanosis. Neurological: This patient is alert and oriented x3. No focal deficits. LABORATORY DATA: WBC 6.9, hemoglobin 10.2, hematocrit 30.4, platelets 186,000. Sodium 136, potassium 5.1, chloride 109, bicarbonate 20, BUN 14, creatinine 1.4, glucose 236, calcium 7.4, phosphorus 3.7, magnesium 1.7. ASSESSMENT AND PLAN: 1. Severe gastroparesis and esophageal stenosis with nausea, vomiting, abdominal pain and severe dysphagia. We tried to send this patient to [facility], but they did not accepted the patient. They suggested to put in a feeding jejunostomy tube by the Surgery Department, which we did yesterday. She is postoperative day #1. The Gastroenterology Department is already in on the case. We have started nutrition through a jejunostomy tube today. Wee will monitor during the weekend. 2. Diabetes, stable. Continue to monitor. 3. Acute kidney injury on chronic kidney disease, this is her baseline. 4. Hypokalemia, resolved. 5. Hypophosphatemia. Continue to monitor. 6. Insomnia. Continue with the same management. 7. Anemia status post 1 packed red blood cell a few days ago. Her hemoglobin hematocrit looks stable. cc: Kiet Manning MD
[2019-02-24] MEDS: MORPHINE IV PRN ×6 (01:38→22:28)
[2019-02-24] MEDS: PHENERGAN IV PRN ×6 (01:38→22:28)
[2019-02-24] MEDS: SODIUM CHLORIDE 0.9% INJ PRN ×3 (01:39→22:28)
[2019-02-24] MEDS: REGLAN IV SCH ×4 (04:42→21:40)
[2019-02-24] MEDS: PROTONIX IV SCH ×2 (04:43→16:15)
[2019-02-24] MEDS: SODIUM CHLORIDE 0.9% INJ SCH ×4 (04:43→16:16)
[2019-02-24 06:49] LABS: BASO# 0.01 X1000 (0.0-0.2); BASO% 0.2 % (0.0-0.8); EOS# 0.11 X1000 (0.0-0.7); EOS% 1.7 % (0.0-10.0); HEMOGLOBIN 9.6 g/dL (12.0-16.0); IMM GRAN# 0.02 X1000 (0.0-0.04); IMM GRAN% 0.3 % (0.0-0.5); LYMPH# 1.41 X1000 (1.2-3.4); LYMPH% 21.2 % (20.5-51.1); MCH 27.3 PG (27-31); MCHC 33.1 g/dL (33-37); MCV 82.4 FL (81-99); MONO# 0.87 X1000 (0.11-0.59); MONO% 13.1 % (1.7-9.3); NEUT# 4.22 X1000 (1.4-6.5); NEUT% 63.5 % (42.2-75.2); PLT 179 X1000 (130-400); RBC 3.52 XMIL (4.2-5.4); RDW 19.7 % (11.5-14.5); WBC 6.64 X1000 (4.8-10.8)
--- NOTE | 2019-02-24 07:13 | GENERAL SURGERY PROGRESS NOTE ---
DATE: 02/24/2019 SUBJECTIVE: Patient is complaining of some abdominal pain but it seems like it is centered around the incision. She does not have any peritoneal signs. OBJECTIVE: On exam, she is a little tachycardic in the 114s. She has been afebrile. She is tolerating her tube feeds. Again, her abdominal pain does not seem to be at her jejunostomy. At this point, we will continue to monitor. Continue to follow her tolerance of the tube feeds. If this pain does not seem to improve, may need to consider imaging. cc: Chidi Johnson MD
[2019-02-24 07:47] LABS: ALBUMIN 2.2 g/dL (3.5-5.0); CALCIUM 7.6 mg/dL (8.8-10.2); CREATININE 1.4 mg/dL (0.5-0.9); MAGNESIUM 1.8 mg/dL (1.5-2.7); POTASSIUM 5.4 mmol/L (3.5-5.1)
[2019-02-24] MEDS: HUMULIN R SUBQ SCH ×4 (08:40→21:44)
[2019-02-24] MEDS: DULCOLAX PR SCH ×2 (09:58→21:29)
[2019-02-24] MEDS: MIRALAX PO SCH ×2 (09:59→21:29)
--- NOTE | 2019-02-24 13:06 | PROGRESS NOTE ---
DATE: 02/24/2019 SUBJECTIVE: This patient is feeling better. She is still complaining of some abdominal discomfort, soreness. At this moment, the vital signs look okay. Pulse is 101. She has been getting, between the IV fluids, feeding tube, and TPN, more than 90 mL per hour, which I will continue. She does not look dehydrated. Kidney function stable. Urine culture and blood culture negative, as well as the x-ray done yesterday. No more fever since yesterday at 7:45 a.m. Surgery on board. OBJECTIVE: Vital Signs: Temperature 99 degrees, pulse 101, respiratory rate 16, blood pressure 105/73, oxygen saturation 97% on room air. HEENT: Head normocephalic. No trauma. PERRLA. Neck: Supple. No JVD. No masses. Central trachea. Chest: Clear to auscultation. No wheezing. No rales. Abdomen: Soft. Some tenderness to palpation at the level of the perioperative area. Her abdomen is covered with a dressing. Extremities: No edema, no clubbing, no cyanosis. Neurological Examination: The patient is alert. She is oriented x3. No focal deficits. Laboratory: WBCs 6.6, hemoglobin 9.6, hematocrit 29, platelets 179,000. Sodium 136, potassium 5.4, chloride 106, bicarbonate 20, BUN 18, creatinine 1.4, glucose 207, calcium 7.6, albumin 2.2. ASSESSMENT AND PLAN: 1. Severe gastroparesis and esophageal stenosis with nausea, vomiting, abdominal pain, and severe dysphagia. We tried to send this patient to [facility] but they did not accept the patient. They suggested to put a feeding jejunostomy tube by surgery department and we did it 2 days ago. She is postoperative day #2. Gastroenterology department is on the case already. We will continue with using her jejunostomy tube. She seems to be tolerating her diet. 2. Diabetes, stable. 3. Acute kidney injury on chronic kidney disease. This is her baseline. 4. Hypokalemia, resolved. Actually, this patient is a bit hyperkalemic today. 5. Hypophosphatemia. Continue to monitor. 6. Insomnia. Continue with the same management. 7. Anemia, status post 1 unit of packed red blood cells. Hemoglobin and hematocrit stable. cc: Kiet Manning MD
[2019-02-24] MEDS: LIPOSYN 20% 250 ML IV SCH (13:10)
[2019-02-24] MEDS: TPN ELECTROLYTES 20 ML, MAGNESIUM SULFATE 5 MEQ, M.V.I.-12 10 ML, MTE CONCENTRATE 1 ML,... IV SCH ×9 (15:30)
[2019-02-24] MEDS ORDERED: TPN ELECTROLYTES 20 ML, MAGNESIUM SULFATE 5 MEQ, M.V.I.-12 10 ML, MTE CONCENTRATE 1 ML,... IV SCH ×7 (17:00)
[2019-02-24] MEDS: AMBIEN PO PRN (21:40)
[2019-02-25] MEDS: PROTONIX IV SCH ×2 (03:33→16:20)
[2019-02-25] MEDS: MORPHINE IV PRN ×5 (03:34→21:29)
[2019-02-25] MEDS: REGLAN IV SCH ×4 (03:34→21:29)
[2019-02-25] MEDS: PHENERGAN IV PRN ×4 (03:35→16:20)
[2019-02-25] MEDS: SODIUM CHLORIDE 0.9% INJ SCH ×2 (05:16→16:21)
[2019-02-25 06:37] LABS: HEMATOCRIT 29.4 % (37.0-47.0); HEMOGLOBIN 9.5 g/dL (12.0-16.0)
[2019-02-25] MEDS: HUMULIN R SUBQ SCH ×4 (06:53→21:37)
[2019-02-25 07:07] LABS: ALB/GLOB RATIO 1.4; ALBUMIN 2.7 g/dL (3.5-5.0); CALCIUM 7.8 mg/dL (8.8-10.2); CREATININE 1.5 mg/dL (0.5-0.9); POTASSIUM 5.4 mmol/L (3.5-5.1); TOTAL BILIRUBIN 0.26 mg/dL (0.20-1.00); TOTAL PROTEIN 4.7 g/dL (6.3-8.3)
[2019-02-25 07:13] LABS: ALBUMIN 2.6 g/dL (3.5-5.0); PHOSPHORUS 4.2 mg/dL (2.7-4.5)
[2019-02-25] MEDS: SODIUM CHLORIDE 0.9% INJ PRN ×2 (08:09→16:21)
[2019-02-25] MEDS: LANTUS INSULIN SUBQ SCH (12:14)
[2019-02-25] MEDS: LIPOSYN 20% 250 ML IV SCH (13:58)
[2019-02-25] MEDS: MIRALAX PO SCH ×2 (14:55→21:30)
[2019-02-25] MEDS: DULCOLAX PR SCH ×2 (14:55→21:30)
[2019-02-25] MEDS ORDERED: [UNRECOGNIZED DRUG - NUTRITION] IV SCH ×5 (17:00)
[2019-02-26] MEDS: MORPHINE IV PRN ×6 (01:43→22:31)
[2019-02-26] MEDS: PHENERGAN IV PRN ×6 (01:44→22:31)
[2019-02-26] MEDS: SODIUM CHLORIDE 0.9% INJ PRN ×4 (01:44→18:27)
[2019-02-26] MEDS: AMBIEN PO PRN (02:55)
[2019-02-26] MEDS: REGLAN IV SCH ×4 (02:56→21:47)
[2019-02-26] MEDS: SODIUM CHLORIDE 0.9% INJ SCH ×2 (05:17→15:59)
[2019-02-26] MEDS: PROTONIX IV SCH ×2 (05:17→17:32)
[2019-02-26 06:35] LABS: BASO# 0.02 X1000 (0.0-0.2); BASO% 0.3 % (0.0-0.8); EOS% 1.7 % (0.0-10.0); HEMATOCRIT 27.2 % (37.0-47.0); HEMOGLOBIN 8.9 g/dL (12.0-16.0); LYMPH# 1.72 X1000 (1.2-3.4); LYMPH% 29.3 % (20.5-51.1); MCH 27.6 PG (27-31); MCHC 32.7 g/dL (33-37); MCV 84.2 FL (81-99); MONO# 0.76 X1000 (0.11-0.59); MONO% 12.9 % (1.7-9.3); MPV 12.8 FL (7.4-10.4); NEUT# 3.28 X1000 (1.4-6.5); NEUT% 55.8 % (42.2-75.2); PLT 221 X1000 (130-400); RBC 3.23 XMIL (4.2-5.4); RDW 19.2 % (11.5-14.5); WBC 5.88 X1000 (4.8-10.8)
[2019-02-26] MEDS: HUMULIN R SUBQ SCH ×4 (06:53→21:39)
[2019-02-26 06:59] LABS: ALBUMIN 2.6 g/dL (3.5-5.0); MAGNESIUM 2.1 mg/dL (1.5-2.7); PHOSPHORUS 4.7 mg/dL (2.7-4.5)
[2019-02-26 07:10] LABS: ALB/GLOB RATIO 1.4; ALBUMIN 2.6 g/dL (3.5-5.0); CALCIUM 7.6 mg/dL (8.8-10.2); CREATININE 1.5 mg/dL (0.5-0.9); POTASSIUM 4.8 mmol/L (3.5-5.1); TOTAL BILIRUBIN 0.24 mg/dL (0.20-1.00); TOTAL PROTEIN 4.5 g/dL (6.3-8.3)
[2019-02-26] MEDS: DULCOLAX PR SCH ×3 (10:24→21:47)
[2019-02-26] MEDS: MIRALAX PO SCH ×2 (10:24→21:47)
--- NOTE | 2019-02-26 12:00 | Diag Imaging Result Doc PS360 ---
CT ABD/PELVIS W/IV CONT ONLY - 02/26/2019 INDICATION: abdominal pain COMPARISON: 11/27/2018 FINDINGS: There are substantial linear infiltrates in the lung bases. There is mild cardiomegaly. There is a chest port. There is severe body wall edema mainly at the dependent body wall. There is a J-tube in good position. There is significant fluid distention of the stomach and proximal small bowel. Small bowel loops measure up to 4.7 cm. There is constipation with significant stool throughout the colon. Urinary bladder is distended. There appears to be an IUD in the uterus stable from prior. The rectum is normal. There are cholecystectomy clips. The liver, pancreas, spleen, adrenals, and kidneys are normal. Bones are intact. IMPRESSION: 1. Proximal small bowel obstruction with significant fluid distention of the stomach and proximal bowel. 2. Constipation. 3. Severe worsening body wall edema. 4. Significant indeterminate infiltrates in the lung bases suggesting bronchopneumonia or aspiration. This exam was performed using automated exposure control, adjustment of mA or kV according to patient size, and/or use of iterative reconstruction technique Electronically signed by Chapito Duran 02/26/2019 11:58 AM
[2019-02-26] MEDS ORDERED: VANCOMYCIN IV PER PHARMACY MISC SCH (12:45)
[2019-02-26] MEDS: MAXIPIME 2 GM in NS 100 ML IV SCH (14:15)
[2019-02-26] MEDS ORDERED: VANCOMYCIN 1,450 MG in NS 250 ML IV ONE (14:30)
[2019-02-26] MEDS: LANTUS INSULIN SUBQ SCH (15:04)
[2019-02-26] MEDS: MINERAL OIL JT SCH ×2 (15:59→21:46)
[2019-02-27] MEDS: REGLAN IV SCH ×5 (01:56→21:20)
[2019-02-27] MEDS: MAXIPIME 2 GM in NS 100 ML IV SCH ×2 (01:56→12:56)
[2019-02-27] MEDS: AMBIEN PO PRN ×2 (01:56→21:20)
[2019-02-27] MEDS: MORPHINE IV PRN ×4 (02:35→14:13)
[2019-02-27] MEDS: PHENERGAN IV PRN ×5 (02:35→18:59)
[2019-02-27] MEDS: SODIUM CHLORIDE 0.9% INJ SCH ×2 (04:30→17:04)
[2019-02-27] MEDS: PROTONIX IV SCH ×3 (04:30→17:01)
[2019-02-27 06:43] LABS: ALBUMIN 2.9 g/dL (3.5-5.0); CALCIUM 8.2 mg/dL (8.8-10.2); CREATININE 1.5 mg/dL (0.5-0.9); MAGNESIUM 2.1 mg/dL (1.5-2.7); PHOSPHORUS 5.3 mg/dL (2.7-4.5)
[2019-02-27] MEDS: HUMULIN R SUBQ SCH ×4 (06:46→21:46)
--- NOTE | 2019-02-27 07:41 | PROGRESS NOTE ---
DATE: 02/25/2019 SUBJECTIVE: This patient is complaining of a little bit of nausea today, some abdominal discomfort but getting better. The plan is to stop the TPN today, and continue with feeding tube. I talked to the dietitian about it, and she is aware. She will make a plan so this patient can be discharged in the next 24 hours. Also, I contacted Dr. Cano and Dr. Mobley, Gastroenterology and Surgery Department and they are okay if we send this patient home. She will need to follow up with her front desk clerk at [facility], she will need to make an appointment with him. I believe she has a scheduled procedure this week or next week. Also, follow up with Dr. Mobley in 2 weeks to check on her feeding jejunostomy tube. OBJECTIVE: Vital Signs: Temperature 98.9, pulse 110, respiratory rate 18, and blood pressure 120/85. HEENT: Head normocephalic. No trauma. PERRLA. A little bit enlarged parotid gland. Neck is supple. No JVD. Central trachea. Chest: Clear to auscultation. No wheezing. No rales. Abdomen is soft. Some discomfort to palpation around the operative area. Her abdomen is covered with multiple dressings. Very soft and has some bowel sounds. Extremities: No edema. No clubbing. No cyanosis. Neurological: Alert and oriented x3. No focal deficits. LABORATORY: Hemoglobin 9.5, hematocrit 29.4, sodium 136, potassium 5.4, chloride 103, bicarbonate 23, BUN 24, creatinine 1.5, glucose 395, calcium 7.8, and albumin 2.7. ASSESSMENT AND PLAN: 1. Severe gastroparesis with esophageal stenosis with nausea, vomiting, abdominal pain, and severe dysphagia. Status post feeding jejunostomy tube postoperative day #3. A few days ago we contacted [facility] to see if we could transfer this patient over there. They refused the patient, but they recommended to put a feeding jejunostomy tube which we did. Now, the hemoglobin has been stable and she has been getting nutrition through the tube. I believe she can be discharged in the next 24 to maybe 48 hours. If everything is okay, we will stop the TPN and I will continue with just feeding through the jejunostomy tube. Case has been discussed with the Surgery Department and also Gastroenterology Department. 2. Diabetes. Her blood sugar increased and is above 300. I gave her a dose of Lantus today, this is probably because now she is on nutrition through the tube and TPN at the same time. I will stop the TPN like I said. Case has been discussed with the Gastroenterology Department. Hopefully, the blood sugar will decrease afterwards. For now, continue with the same management. 3. Acute kidney injury on chronic kidney disease. Likely, this is her baseline. We will continue to monitor. 4. Hypokalemia, resolved. 5. Hypophosphatemia. Continue to monitor. 6. Insomnia. Continue with the same management. 7. Anemia, status post 1 PRBC's. Hemoglobin and hematocrit are stable. Overall, this patient is doing well. The plan is to start the TPN today and continue with nutrition through the feeding jejunostomy tube that has been placed a few days ago. She will need to follow with her front desk clerk at [facility] since this patient has a severe stenosis in the esophagus. Dr. Mobley with the Surgery Department wants to see her to check on her stool in a few weeks. This has been explained to the patient. We will monitor. cc: Kiet Manning MD MTDD
[2019-02-27] MEDS: DULCOLAX PR SCH ×3 (08:57→21:20)
[2019-02-27] MEDS: MINERAL OIL JT SCH ×2 (08:58→21:20)
[2019-02-27] MEDS: MIRALAX PO SCH ×2 (08:58→21:20)
--- NOTE | 2019-02-27 09:05 | Diag Imaging Result Doc PS360 ---
KUB ABDOMEN - 02/27/2019 INDICATION: SBO COMPARISON: CT from 02/26/2019 FINDINGS: There are apparently stable laparotomy incision skin alexia. Stable implanted device. Stable jejunostomy tube. Stable IUD in the pelvis. Stable cholecystectomy clips. Detail is very poor. No definite bowel obstruction. IMPRESSION: No definite bowel obstruction. Electronically signed by Chapito Duran 02/27/2019 9:03 AM
[2019-02-27] MEDS: LANTUS INSULIN SUBQ SCH (11:25)
--- NOTE | 2019-02-27 12:05 | GENERAL SURGERY PROGRESS NOTE ---
DATE: 02/25/2019 SUBJECTIVE: The patient has no acute complaints. She is tolerating her tube feeds at 40 mL an hour. She has had several bowel movements. OBJECTIVE: Vital Signs: She is afebrile, pulse 101 to 124 over the last 24 hours, blood pressure 151/48, O2 saturation 99%. General: She is awake, alert, oriented x4. No acute distress. Respiratory: No work of breathing. GI: Soft, minimally tender. Incisional dressing is clean and dry. J-tube is intact with tube feeds running at 40 mL/h. No leakage appreciated. LABORATORY DATA: Hemoglobin 9.5, hematocrit 29.4. Electrolytes were reviewed and notable for a blood sugar of 395. ASSESSMENT AND PLAN: A 43-year-old female with severe esophageal stricture and protein calorie malnutrition, now status post jejunostomy tube placement. She has hyperglycemia. She is tolerating her tube feeds. I will sign off for now and be available as needed. We will remove her skin clips in a couple of weeks in my office, and the primary team and the dietitian can work together for outpatient tube feeding regimen. cc: Samm Mobley MD
[2019-02-27] MEDS: 1/2 NS + KCL 20 MEQ 1,000 ML IV SCH (12:55)
[2019-02-27] MEDS: VANCOMYCIN 1 GM/NS 1 GM/250 ML IVPB IV SCH (15:30)
--- NOTE | 2019-02-27 15:41 | PROGRESS NOTE ---
DATE: 02/27/2019 INTERVAL HISTORY: Patient with some improvement in nausea and abdominal symptoms today. X-ray appears somewhat improved. Started back on tube feeds at lower rate. No other acute events. No other new complaints. LABS: Sodium 143, potassium 5.0, BUN 24, creatinine 1.5, glucose 125. IMAGING: Abdominal x-ray with no definite bowel obstruction, stable jejunostomy tube. VITAL SIGNS: T-max 99.0 degrees, pulse 98, respirations 18, blood pressure 140/92, O2 saturation 95% on room air. PHYSICAL EXAMINATION: General: No acute distress. Vital signs: As above. HEENT: Normocephalic, atraumatic. Moist mucous membranes. No cervical adenopathy. Cardiovascular: Regular rate and rhythm. No murmurs noted. Pulmonary: Clear to auscultation bilaterally. No wheezing, rales, or rhonchi. Abdomen: Soft. Minimal discomfort around tube site. Bowel sounds decreased but present. Extremities: Peripheral pulses intact. No clubbing, cyanosis. Neurologic: Cranial nerves grossly intact. No focal deficits identified. Psychiatric: Asleep but easily arousable. Oriented x3. Normal mood and affect. Skin: No new rashes or lesions identified. ASSESSMENT AND PLAN: 1. Severe gastroparesis, severe esophageal stenosis, dysphagia, nausea, vomiting, abdominal pain. Patient with jejunostomy tube in place, tolerated well initially. Had some difficulties yesterday and CT was concerning for small bowel obstruction, but symptoms now improved. X-ray without any definite obstruction. Started back on tube feeds which she appears to be tolerating at a lower rate. If she continues to tolerate, we can advance her rate a bit and then may be able discharge home soon. 2. Diabetes. Glucose control improved. Continue to monitor. 3. Acute kidney injury on chronic kidney disease 3. Likely baseline at this point. Monitor. 4. Hypokalemia, resolved. Continue to monitor. 5. Insomnia. Continue current management. 6. Anemia. Blood counts essentially stable at this point. Monitor.
[2019-02-27] MEDS ORDERED: OFIRMEV 1000 MG/ISOTONIC SOLN 1,000 MG/100 ML BOTTLE IV PRN (16:19)
--- NOTE | 2019-02-27 23:55 | PROVIDER PROGRESS NOTE ---
Progress Note SUBJECTIVE: No acute overnight events. Patient continues to have N/V and reports vomiting tube feeds. She says her abdominal pain is a little improved. She is having bowel movements. Per RN, patient has been seen eating outside solid food and patient's mother is concerned that patient is getting secondary gain by coming to the hospital and feels she needs to be seen by a psychiatrist. OBJECTIVE: Last Vital Signs Temp 98.2 F 02/27/19 23:49 Pulse 99 H 02/27/19 23:49 Resp 18 02/27/19 23:49 BP 122/76 02/27/19 23:49 Pulse Ox 99 02/27/19 23:49 Height 5 ft 4 in Weight 161 lb 4.8 oz OBJECTIVE: GEN: awake, alert, NAD HEENT: anicteric, MMM NECK: supple, no jvd PULM: CTAB, no wheezing CV: mild tachycardia, regular, no murmurs ABD: soft ND, diffuse TTP, hypoactive BS, midline incision c/d/i, j-tube site c/d/i EXT: no cce NEURO: nonfocal LABS: 02/27/19 05:45 Sodium 143 Potassium 5.0 Chloride 108 H Carbon Dioxide 28 BUN 24 H Creatinine 1.5 H Glucose 110 H Calcium 8.2 L Phosphorus 5.3 H Magnesium 2.1 Albumin 2.9 L A/P: Ms. Kaleigh Bobby is a 43-year-old woman with a complicated history of poorly controlled insulin-dependent diabetes, gastroparesis status post pacemaker, history of NSAID-induced esophageal stricture with severe esophagitis requiring serial dilations at [facility] who presented with intractable nausea, vomiting, and dysphagia in the setting of known stricture s/p ex-lap with j-tube placement. Post-operative course complicated by SBO and constipation treated conservatively with improvement. Surgery following, appreciate assistance. There is concern that patient is intentionally swallowing solid foodsl to cause N/V to gain admission or some other secondary gain per family. The patient does have poor insight to her illness and is non-compliant with recommendations. # Esophageal stricture: s/p surgical j-tube placement on tube feeds, which she will need for >90 days as she undergoes serial esophageal dilations at [facility] # SBO: improved on KUB today; surgery following; will continue to monitor exam # N/V: continue antiemetics # Anemia: 2/2 to esophagitis, known PUD: continue PPI BID; trending H/H daily, transfuse for hgb <7, goal 7-8 # Gastroparesis: continue antiemetics prn # Malnutrition: on J-tube feeds per nutrition # Constipation: controlled with bowel regimen # IDDM2: SSI per primary Will follow with you. Please call with questions
[2019-02-28] MEDS: PHENERGAN IV PRN ×6 (00:55→22:21)
[2019-02-28] MEDS: MAXIPIME 2 GM in NS 100 ML IV SCH ×2 (00:55→13:01)
[2019-02-28] MEDS: REGLAN IV SCH ×5 (00:55→22:13)
[2019-02-28] MEDS: PROTONIX IV SCH ×2 (04:50→17:29)
[2019-02-28] MEDS: SODIUM CHLORIDE 0.9% INJ SCH ×2 (04:51→17:29)
[2019-02-28 06:48] LABS: ALBUMIN 2.4 g/dL (3.5-5.0); CALCIUM 7.5 mg/dL (8.8-10.2); CREATININE 1.4 mg/dL (0.5-0.9); MAGNESIUM 1.7 mg/dL (1.5-2.7); PHOSPHORUS 3.6 mg/dL (2.7-4.5)
[2019-02-28] MEDS: HUMULIN R SUBQ SCH ×4 (07:24→22:11)
[2019-02-28 07:28] LABS: PREALBUMIN 17.2 mg/dL (20-40)
[2019-02-28] MEDS: DULCOLAX PR SCH (08:28)
[2019-02-28] MEDS: LANTUS INSULIN SUBQ SCH (08:29)
[2019-02-28] MEDS: MINERAL OIL JT SCH ×3 (08:30→22:13)
[2019-02-28] MEDS: MIRALAX PO SCH ×2 (08:30→22:12)
[2019-02-28] MEDS: SODIUM CHLORIDE 0.9% INJ PRN ×4 (10:23→22:21)
[2019-02-28] MEDS: ELDERTONIC JT SCH (11:41)
--- NOTE | 2019-02-28 15:22 | PROGRESS NOTE ---
DATE: 02/28/2019 HISTORY: Still some nausea and occasional vomiting but vomiting only bilious material. Little abdominal discomfort and is having some bowel movements. Appears to be tolerating the tube feeds so far. No other complaints. No acute events overnight. I discussed with the patient and family the importance of her not taking any solid food and inevitably lead to further nausea, vomiting, and possible aspiration. REVIEW OF SYSTEMS: A 12 point Review of Systems negative except for interval history. LABORATORY: Sodium 140, potassium 4, BUN 19, creatinine 1.4, albumin 2.4, prealbumin 17.2. OBJECTIVE: Vitals: T-max 99.1, pulse 101, respirations 16, blood pressure 138/91, and O2 saturation 96% on room air. General: No acute distress. HEENT: Normocephalic and atraumatic. Moist mucous membranes. Neck: No cervical adenopathy. Cardiovascular: Minimally tachycardic but regular. No murmurs noted. Pulmonary: Clear to auscultation bilaterally. No wheezing, rales, or rhonchi. Abdomen: Soft. Minimal discomfort around tube and is stable. No signs of infection. Bowel sounds improved from previous. Extremities: Peripheral pulses intact. No clubbing or cyanosis. Neurologic: Cranial nerves grossly intact. No focal deficits identified. Psychiatric: Awake, alert, and oriented x3. Essentially normal mood and affect. Skin: No new rashes or lesions identified. ASSESSMENT AND PLAN: 1. Severe gastroparesis, severe esophageal stenosis, dysphagia, nausea, vomiting, and abdominal pain. The patient with surgically placed jejunostomy tube. CT concerning for small-bowel obstruction at one point but symptoms have improved and x-ray without any definite obstruction. Started back on tube feeds at a lower rate and appears to be tolerating so far. He is having some bowel movements, which is encouraging. Still some occasional nausea and vomiting, but appears to be only bilious material and not tube feeds which may be unavoidable. 2. Diabetes. Glucose control reasonable. Continue to monitor. 3. CATERINA on CKD 3 improved. It appears to be likely baseline at this point. We will monitor. 4. Hypokalemia resolved. Continue to monitor. 5. Insomnia. Largely stable. Monitor counts. 6. Noncompliance. The patient has had intermittent issues with attempting to eat solid-food despite multiple discussions on how this really needs to be avoided. Uncertain if this represents just regular noncompliance versus some kind of secondary gain. No psychiatric evaluation available. No SI or HI to push for inpatient psychiatric eval, and with her medical issues it would be unlikely that a psychiatric facility would take her anyway. She does seem to be doing somewhat better over the last couple days. If she continues to do well and we are able to get her tube feeds up to a reasonable rate, then may be able to discharge. Ideally, would like to get her down to [place] where she can follow up with her GI down there and can be referred to surgery and/or psychiatry if need be.
--- NOTE | 2019-02-28 15:50 | GASTROENTEROLOGY PROGRESS NOTE ---
DATE: 02/28/2019 SUBJECTIVE: Patient resting in bed. She is still spitting up her phlegm. She is unable to eat. According to her, she cannot keep anything down. She has a J-tube in place. She is receiving tube feeds at 10 ml per hour. She is moving her bowels. She denies any fevers, rigors, chills. OBJECTIVE: Vital Signs: Temperature 97.9 degrees, pulse of 104, respiratory 20, blood pressure 140/92, saturating 98% on room air. Body weight of 160 pounds 5 oz. BMI 27.9 kg/m2. General: Is thinly, moderately malnourished, lying in bed, in no acute distress. HEENT: Mild pallor. No icterus. Neck: Supple. Abdomen: Soft. The J-tube is in place in the left upper quadrant. No rebound or guarding. Extremities: No cyanosis, clubbing. Neurologic: Alert, awake, oriented x3. LABORATORY DATA: Sodium 140, potassium 4, chloride 105, bicarb 23, anion gap of 12, BUN of 19, creatinine 1.4 glucose of 82, calcium 7.5. Phosphorus 3.6, magnesium 1.7. AST 16, albumin of 2.4. Urine culture showing no growth. Blood culture x2 no growth for 48 hours. IMAGING: Abdominal and pelvic CT done on 02/26/2019 showed proximal small bowel obstruction with significant fluid distention of the stomach and proximal bowel, constipation, worsening body wall edema. Significant intermittent infiltrates in the lung bases suggesting bronchopneumonia or aspiration. IMPRESSION AND PLAN: 1. Esophageal stricture. She had a surgical J-tube placed by Dr. Mobley. She is on tube feeds. Continue to advance tube feeds per the nutrition recommendations. She will continue follow up with [facility] with Dr. Ford as an outpatient for serial esophageal dilations. 2. Gastroparesis. She will continue on antiemetics. We will keep her on Reglan, hold Reglan for side effects like tardive dyskinesia. 3. Constipation. We will keep the bowel regimen with MiraLAX and Dulcolax. 4. Nausea and vomiting. Continue antiemetics. 5. Malnutrition. She is on J-tube feeds under the care of primary care team and nutrition team. 6. Insulin-dependent type 2 diabetes. She is on sliding scale insulin. 7. History of NSAID-induced esophageal stricture with severe esophagitis requiring serial dilations at [facility] with Dr. Ford. She will continue to follow with Dr. Ford as an outpatient. 8. Anemia. Continue to watch for now and transfuse as needed. We will continue on multivitamin once daily. 9. We will also start her on Iron C through the iron supplemental liquid through the J-tube. We will start her on multivitamin through the J-tube. 10. She is on Mineral oil per J-tube b.i.d. for constipation. 11. The above plans discussed with the patient and all questions answered. Please call with any further questions. cc: MD Samm Villa MD Dr. Adams MTDD
[2019-02-28] MEDS: VANCOMYCIN 1 GM/NS 1 GM/250 ML IVPB IV SCH (16:10)
--- NOTE | 2019-02-28 16:17 | GENERAL SURGERY PROGRESS NOTE ---
DATE: 02/26/2019 SUBJECTIVE: The patient is doing okay. She has some mild abdominal soreness since surgery. She is tolerating her tube feeds. She continues to spit up some food and liquids when she tries to drink it orally but has not been throwing up any tube feeds. She has had some bowel movements. I did see her yesterday but apparently my dictation has not been transcribed, and her evaluation from yesterday to today has not changed. It is just the same as today. OBJECTIVE: Vital signs: She is afebrile. Vital signs are stable. General: She is awake, alert, and oriented x3, no acute distress. Cardiovascular: Regular rate and rhythm. Respiratory: Bilateral breath sounds. No work of breathing. Gastrointestinal: Soft, nondistended, minimally tender. J-tube is intact. Dressing is clean and dry. Midline incision is clean and dry without erythema. LABORATORY: White blood cell count 5.8, hemoglobin 8.9, hematocrit 27.2. Electrolytes reviewed and unremarkable. ASSESSMENT AND PLAN: A 43-year-old female with severe esophageal stricture and inability to take p.o. nutrition. She is status post J-tube placement. She can be discharged from my standpoint with home health and tube feeds and will follow with me in 2 weeks for a wound check. Her J-tube will likely need to stay in for several months while she gets serial dilation at [facility] for her stricture. cc: Samm Mobley MD
[2019-02-28] MEDS: AMBIEN PO PRN (22:21)
--- NOTE | 2019-02-28 22:52 | PROGRESS NOTE ---
DATE: 02/26/2019 INTERVAL HISTORY: The patient still has some nausea and vomiting. He has vomited up some tube feeds, likely due to the feeding tube being in the jejunum. Initially denied any respiratory component but on further reflection did state she had some mild increase in productive cough but no dyspnea. No other acute events overnight. No new complaints. REVIEW OF SYSTEMS: A 12-point review of systems was negative except as per interval history. LABORATORY DATA: WBC 5.8, hemoglobin 9.9, hematocrit 23.2, platelets 221. Sodium 142, potassium 4.8, BUN 23, creatinine 1.5, glucose 122, phosphorus 4.7. IMAGING: CT abdomen and pelvis with proximal small bowel obstruction with fluid distention of the stomach and proximal bowel. Constipation. Ongoing bowel wall edema. Significant infiltrates in the lung bases suggestive of bronchial pneumonia and/or aspiration. VITALS: T-max 99.5 degrees, [id number], respirations 16, blood pressure 122/82, oxygen saturation 94% on room air. PHYSICAL EXAMINATION: General: In no acute distress. Vitals as above. HEENT: Normocephalic, atraumatic. Moist mucous membranes. Neck: No cervical lymphadenopathy. Cardiovascular: Regular rate and rhythm. No murmurs, rubs or gallops noted. Pulmonary: Remains clear to auscultation bilaterally. No wheezes, rales or rhonchi noted. Abdomen: Soft, mild perioperative tenderness remains. Bowel sounds decreased but present. Abdominal incision stapled. Incision is clean, dry and intact. Extremities: Peripheral pulses are intact. No clubbing or cyanosis. Neurologic: Cranial nerves II-XII grossly intact. No focal deficits identified. Psychiatric: Normal mood and affect. Awake, alert and oriented x 3. Skin: No new rashes or lesions identified. ASSESSMENT AND PLAN: 1. Severe gastroparesis, severe esophageal stenosis, nausea, vomiting and abdominal pain. We initially tried to transfer the patient to [facility] and they were initially receptive but later declined. They declined. They suggested a jejunostomy tube be placed by Surgery. This was done approximately 3 days ago. He tolerated this initially but subsequently had increasing abdominal pain, nausea and vomiting. We did CT today showing likely small bowel obstruction. We will hold tube feeds and give some suppositories to try to decompress her distal bowel and monitor closely. Continue TPN for now. 2. Diabetes, stable. 3. Acute kidney injury on chronic kidney disease stage 3. Kidney function likely baseline at this point. Continue to monitor. 4. Hypokalemia. Resolved. Monitor. 5. Insomnia. Continue current management. 6. Anemia. Required 1 unit transfusion but hemoglobin and hematocrit largely stable over the last several days. Continue to monitor. There has been a very slight downtrend.
[2019-03-01] MEDS: MAXIPIME 2 GM in NS 100 ML IV SCH ×2 (01:02→13:07)
[2019-03-01] MEDS: PHENERGAN IV PRN ×5 (02:43→18:44)
[2019-03-01] MEDS: SODIUM CHLORIDE 0.9% INJ PRN ×3 (02:45→14:44)
[2019-03-01] MEDS: PROTONIX IV SCH ×3 (02:46→23:59)
[2019-03-01] MEDS: REGLAN IV SCH ×4 (02:46→20:31)
[2019-03-01] MEDS: SODIUM CHLORIDE 0.9% INJ SCH ×3 (02:47→20:27)
[2019-03-01] MEDS: HUMULIN R SUBQ SCH ×4 (06:36→20:30)
[2019-03-01 06:55] LABS: ALBUMIN 2.6 g/dL (3.5-5.0); CALCIUM 7.6 mg/dL (8.8-10.2); CREATININE 1.4 mg/dL (0.5-0.9); MAGNESIUM 1.8 mg/dL (1.5-2.7); PHOSPHORUS 2.8 mg/dL (2.7-4.5)
[2019-03-01] MEDS: DULCOLAX PR SCH (08:47)
[2019-03-01] MEDS: MINERAL OIL JT SCH ×2 (08:48→20:30)
[2019-03-01] MEDS: MIRALAX PO SCH ×2 (08:48→20:28)
[2019-03-01] MEDS: ELDERTONIC JT SCH (08:48)
[2019-03-01] MEDS: LANTUS INSULIN SUBQ SCH (08:53)
--- NOTE | 2019-03-01 11:50 | GENERAL SURGERY PROGRESS NOTE ---
DATE: 02/26/2019 SUBJECTIVE: The patient has some mild abdominal pain. She says it has not changed significantly since her J tube was put in and in fact it is similar to the way it was hurting before her J tube was put in. She has passed some gas today. OBJECTIVE: She is afebrile. Vital signs are stable. Pulse remains in the low 100s. General: She is awake and alert, and oriented x4. No acute distress. Gastrointestinal: Soft, nondistended, minimally tender. Incision is clean, dry and intact. LABORATORY: CBC, complete metabolic profile reviewed and unremarkable. IMAGING: CT of the abdomen and pelvis was ordered by Dr. Cano and completed today. She does have fluid distention of the stomach and proximal small bowel as well as constipation throughout the colon. This could be a small bowel obstruction in addition to constipation. ASSESSMENT AND PLAN: A 43-year-old female with severe esophageal stricture, severe gastroparesis, now status post J tube placement with postoperative imaging suggesting obstruction and constipation. She cannot get an NG tube secondary to the esophageal stricture. She does not appear to be in any acute distress. She does appear to have some bowel function. I am going to order mineral oil through the J tube twice daily and continue observation for now. If she has more obstructive type symptoms then she may require a repeat laparotomy to look for any mechanical obstruction that can be corrected, but I think with some time this may just be an ileus and will work itself out with conservative management. cc: Samm Mobley MD
--- NOTE | 2019-03-01 16:09 | GENERAL SURGERY PROGRESS NOTE ---
DATE: 03/01/2019 SUBJECTIVE: She reports feeling full and spitting up a lot of clear fluid, but otherwise her tube feeds are at goal and she seems to be tolerating them. OBJECTIVE: Vital signs: She is afebrile. Vital signs are stable. General: She is awake, alert, and oriented x3. No acute distress. Gastrointestinal: Soft, nondistended. Minimally tender. Incision is clean, dry, and intact. J-tube is intact without leakage. LABORATORY DATA: Electrolytes reviewed, unremarkable. ASSESSMENT AND PLAN: A 43-year-old female status post jejunostomy tube placement for severe esophageal stricture and chronic malnutrition. She also has severe gastroparesis. Her partial obstruction is probably improved or resolved, and from my standpoint, she is tolerating her tube feeds and can be discharged home for ongoing recovery and follow-up at [facility] to deal with her esophageal stenosis. cc: Samm Mobley MD
--- NOTE | 2019-03-01 16:50 | PROGRESS NOTE ---
DATE: 03/01/2019 INTERVAL HISTORY: The patient with occasional spitting up, but appears to be tolerating tube feeds. Having bowel movements. Chronic abdominal discomfort. No other complaints. No acute events overnight. REVIEW OF SYSTEMS: Twelve point review of systems negative, except as per interval history. LABS: Sodium 140, potassium 4.0, BUN 19, creatinine 1.4, glucose 147 and 155, albumin 2.6. VITALS: T-max 99.5 degrees, pulse 103, respirations 18, blood pressure 141/94, O2 saturation 100% on room air. PHYSICAL EXAMINATION: General: No acute distress. Vitals: As above. HEENT: Normocephalic, atraumatic. Moist mucous membranes. Neck: No cervical adenopathy. Cardiovascular: Minimally tachycardic, but regular. No murmurs noted. Pulmonary: Clear to auscultation bilaterally. No wheezing, rales, or rhonchi. Abdomen: Soft. Essentially nontender at this point. No sign of infection of surgical site. Bowel sounds essentially normal. Extremities: Peripheral pulses intact. No clubbing or cyanosis. Neurologic: Cranial nerves grossly intact. No focal deficits. Psychiatric: Awake, alert, oriented x3. Skin: No new rashes or lesions identified. ASSESSMENT AND PLAN: 1. Severe gastroparesis, severe esophageal stenosis, dysphagia, nausea, vomiting, abdominal pain. The patient was surgically placed jejunostomy tube. CT at one point concerning for small bowel obstruction, but symptoms improved and x-ray without any definite obstruction. Tube feeds at or near goal and appears to be tolerating so far, but has only been on increased tube feeds for a few hours so far. She is having some bowel movements, which is very encouraging. Occasional spitting up, but no clear vomiting overnight or this morning. Some nausea may be unavoidable in her case. 2. Diabetes. Glucose control reasonable. Continue to monitor. 3. Acute kidney injury on chronic kidney disease, stage III. Appears to be essentially back to baseline at this point. Monitor. 4. Hypokalemia. Remains resolved. 5. Insomnia, stable. Continue current treatment. 6. Anemia, likely anemia of chronic disease, stable on last check. No signs or symptoms of bleeding. 7. Pneumonia seen on CT looking at her abdomen. Little clinically to suggest pneumonia. Did have some slight increased cough, but no dyspnea, hypoxia, leukocytosis. CT was fairly convincing though. The patient placed on intravenous antibiotics for short course. Today is day 4 of vancomycin and cefepime. Can likely give a seven-day course. If patient tolerates tube feeds, then may be able to discharge home with intravenous antibiotics versus finishing the course here. The patient does have a port which would simplify home intravenous antibiotics some. Regardless, would like to see her tolerate her current rate of tube feeds for at least 24 hours. 8. Noncompliance. Patient has had intermittent issues attempting to eat solid food. None noted in the last 2 to 3 days. There have been multiple discussions on how she needs to avoid this. That she needs to be on liquids only for the foreseeable future. There has been some question as to whether this represents regular noncompliance versus some kind of secondary gain from being in the hospital. No psychiatric evaluation available here. No suicidal or homicidal ideation wish for inpatient psych evaluation. I agree the patient would likely benefit from psychiatric evaluation, but will likely have to be done as an outpatient. She does appear to be doing fairly well. If she continues to tolerate tube feeds and develops no other acute issues, then we will hopefully be able to discharge in the next couple days. 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
[2019-03-01] MEDS: VANCOMYCIN 1 GM/NS 1 GM/250 ML IVPB IV SCH (19:05)
[2019-03-01] MEDS: 1/2 NS + KCL 20 MEQ 1,000 ML IV SCH (20:27)
[2019-03-01] MEDS: AMBIEN PO PRN (21:08)
[2019-03-02] MEDS: MAXIPIME 2 GM in NS 100 ML IV SCH ×2 (00:36→13:18)
[2019-03-02] MEDS: PROTONIX IV SCH ×3 (00:36→22:09)
--- NOTE | 2019-03-02 00:51 | PROVIDER PROGRESS NOTE ---
Progress Note DATE OF PROGRESS NOTE: 03/01/2019 SUBJECTIVE: No acute overnight events. Afebrile. Abdominal pain improved and controlled with meds. She reports spitting in cup and inability to manage oral secretions. No vomiting. +BMs that are normal. OBJECTIVE: Last Vital Signs Temp 99.9 F H 03/01/19 20:00 Pulse 100 H 03/01/19 20:00 Resp 16 03/01/19 20:00 BP 123/75 03/01/19 20:00 Pulse Ox 99 03/01/19 20:00 Height 5 ft 4 in Weight 160 lb 5 oz GEN: awake, alert, NAD HEENT: anicteric, MMM NECK: supple, no jvd PULM: CTAB, no wheezing CV: mild tachycardia, regular, no murmurs ABD: soft ND, NT, BS present, midline incision c/d/i, j-tube site c/d/i EXT: no cce NEURO: nonfocal LABS: 03/01/19 03/01/19 05:48 14:23 Sodium 140 Potassium 4.0 Chloride 107 Carbon Dioxide 23 L BUN 19 Creatinine 1.4 H Glucose 147 H D Albumin 2.6 L Random Vancomycin 19.50 A/P: Ms. Kaleigh Bobby is a 43-year-old woman with a complicated history of poorly controlled insulin-dependent diabetes, gastroparesis status post pacemaker, history of NSAID-induced esophageal stricture with severe esophagitis requiring serial dilations at [facility] who presented with intractable nausea, vomiting, and dysphagia in the setting of known stricture s/p ex-lap with j-tube placement. Post-operative course complicated by SBO and constipation treated conservatively with improvement. Surgery following, appreciate assistance. The patient has been having trouble managing oral secretions. She admits to have eating solid food in the hospital prior to surgery, but "not swallowing". I am concerned that she may have recurrent food impaction. She is also now on antibiotics with vancomycin and cefepime for pneumonia thought to be secondary to aspiration. # Esophageal stricture: s/p surgical j-tube placement on tube feeds, which she will need for >90 days as she undergoes serial esophageal dilations at [facility] # Aspiration pneumonia: continue antibiotics as per primary # Dysphagia: patient may need repeat EGD prior to discharge to assess for food impaction given non-compliance with clear liquid diet # SBO: resolved; surgery following; appreciate recs # N/V: continue antiemetics # Anemia: 2/2 to esophagitis, known PUD: continue PPI BID; trending H/H daily, transfuse for hgb <7, goal 7-8 # Gastroparesis: continue antiemetics prn # Malnutrition: on J-tube feeds per nutrition # Constipation: controlled with bowel regimen # IDDM2: SSI per primary Will follow with you. Please call with questions
[2019-03-02] MEDS: SODIUM CHLORIDE 0.9% INJ SCH ×2 (03:03→15:53)
[2019-03-02] MEDS: PHENERGAN IV PRN ×6 (03:03→22:06)
[2019-03-02] MEDS: REGLAN IV SCH ×4 (03:03→22:07)
[2019-03-02] MEDS: HUMULIN R SUBQ SCH ×3 (06:03→15:47)
[2019-03-02] MEDS: LANTUS INSULIN SUBQ SCH (09:36)
[2019-03-02] MEDS: MINERAL OIL JT SCH ×2 (09:37→22:08)
[2019-03-02] MEDS: ELDERTONIC JT SCH (09:42)
[2019-03-02] MEDS: MIRALAX PO SCH ×2 (09:44→22:08)
[2019-03-02] MEDS: DULCOLAX PR SCH (09:44)
[2019-03-02] MEDS: NORCO-5 PO PRN (10:59)
--- NOTE | 2019-03-02 13:39 | PROGRESS NOTE ---
DATE: 03/02/2019 INTERVAL HISTORY: No acute events overnight. Her temperature was 99.9 degrees, She was slightly tachycardic. EKG suggests sinus tachycardia. The patient has not been able to swallow properly and is spitting out yellowish stuff. She denies any chest pain, shortness of breath or cough. She wants me to increase her pain medication dose, and I discussed with her about opioid medications, worsening peristalsis, constipation, gastroparesis. We also discussed about stomach doctor recommendations about possible esophagogastroduodenoscopy in the future. I answered all of her questions. VITAL SIGNS: Temperature 98.6 degrees, pulse 98, respiratory rate 20, blood pressure 120/72, saturating 95% on room air. PHYSICAL EXAMINATION: General: Appears not in any acute distress. She does have a flat affect. HEENT: Oral cavity has oral candidiasis. Lungs: Air entry bilaterally equal. No wheeze, rhonchi, crackles. Heart: S1, S2 normal. No murmur, rub, or gallop. Abdomen: Soft. Generalized tenderness. She does have alexia for recent laparotomy and jejunostomy tube with which feeding tube is attached. She had a bowel movement today morning. LABS: No CBC today. No BMP today. ASSESSMENT AND PLAN: 1. Severe gastroparesis, severe esophageal stenosis with strictures requiring multiple esophageal dilatations in the past, dysphagia, nausea, vomiting, abdominal pain, now status post surgically-placed jejunostomy tube on 02/22/2019. Her postoperative course was marked by suspected small bowel obstruction which was managed medically. Continue jejunostomy tube feeds. She has been having appropriate bowel movement. No nausea and vomiting overnight. 2. Dysphagia with esophageal stricture on esophagogastroduodenoscopy presentation. She is currently not able to swallow her sputum. Gastroenterology on board and is planning repeat esophagogastroduodenoscopy to evaluate for food impaction since during this hospital admission patient was eating solid food against medical advice. 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 She also previously had a gastric pacemaker. 3. Diabetes. Glucose is in acceptable range.. Though her hemoglobin A1c was less than 6. Continue the Lantus. She is not listed to be taking any antidiabetic medications at home. 4. Acute kidney injury on chronic kidney disease stage III, stable. I will stop intravenous fluids. 5. Others: Anemia of chronic kidney disease is stable; insomnia is well controlled on zolpidem. 6. Bilateral lower lobe pneumonia as evidenced on CT scan of abdomen on February 26. Continue intravenous, vancomycin and cefepime. My plan is to stop antibiotics on Monday. She is not having any symptoms of this. DISPOSITION: Patient appears to be hemodynamically stable. I was informed by the patient that the home care agency would take care of jejunostomy tube feeding. I am awaiting GI recommendation about repeat EGD plan; based on that, my plan is to discharge her home on tube feeds in the next 24 to 48 hours with home care agency taking care of tube feeds and outpatient [facility] GI follow-up. Plan of care discussed with the patient. All of her questions have been answered. cc: Clay Still MD
[2019-03-02] MEDS: MYCELEX TROCHE PO SCH ×2 (15:02→22:07)
[2019-03-02] MEDS: VANCOMYCIN 1 GM/NS 1 GM/250 ML IVPB IV SCH (18:06)
--- NOTE | 2019-03-02 18:42 | GENERAL SURGERY PROGRESS NOTE ---
DATE: 03/02/2019 SUBJECTIVE: Tolerating tube feeds at goal. OBJECTIVE: No fevers, pulse 98, blood pressure 120/72. Abdomen is soft. Incision intact. J- tube is in place. ASSESSMENT AND PLAN: A 43-year-old female with esophageal stricture. She has a J-tube, tolerating tube feeds at goal. Will give her some sips for comfort, but continue current management. cc: Pedro Ramos MD
--- NOTE | 2019-03-02 20:03 | PROVIDER PROGRESS NOTE ---
Progress Note SUBJECTIVE: No acute overnight events. No fever or vomiting. She continue to spit in bottle. No CP, SOB. She reports abdominal pain at incision. She is tolerating j-tube feeds at goal. Normal bowel movements without melena. OBJECTIVE: Last Vital Signs Temp 98.8 F 03/02/19 20:01 Pulse 100 H 03/02/19 20:01 Resp 20 03/02/19 20:01 BP 133/95 03/02/19 20:01 Pulse Ox 100 03/02/19 20:01 Height 5 ft 4 in Weight 158 lb 5 oz SUBJECTIVE: No acute overnight events. Afebrile. Abdominal pain improved and controlled with meds. She reports spitting in cup and inability to manage oral secretions. No vomiting. +BMs that are normal. OBJECTIVE: Last Vital Signs Temp 99.9 F H 03/01/19 20:00 Pulse 100 H 03/01/19 20:00 Resp 16 03/01/19 20:00 BP 123/75 03/01/19 20:00 Pulse Ox 99 03/01/19 20:00 Height 5 ft 4 in Weight 160 lb 5 oz GEN: awake, alert, NAD HEENT: anicteric, MMM NECK: supple, no jvd PULM: CTAB, no wheezing CV: mild tachycardia, regular, no murmurs ABD: soft ND, mild TTP throughout, BS present, midline incision c/d/i, j-tube site c/d/i EXT: no cce NEURO: nonfocal LABS: no labs A/P: Ms. Kaleigh Bobby is a 43-year-old woman with a complicated history of poorly controlled insulin-dependent diabetes, gastroparesis status post pacemaker, history of NSAID-induced esophageal stricture with severe esophagitis requiring serial dilations at [facility] who presented with intractable nausea, vomiting, and dysphagia in the setting of known stricture s/p ex-lap with j-tube placement. Post-operative course complicated by SBO and constipation treated conservatively with improvement. Surgery following, appreciate assistance. The patient has been having trouble managing oral secretions. She admits to have eating solid food in the hospital prior to surgery, but "not swallowing". I am concerned that she may have recurrent food impaction. She is also now on antibiotics with vancomycin and cefepime for pneumonia thought to be secondary to aspiration. # Esophageal stricture: s/p surgical j-tube placement on tube feeds, which she will need for >90 days as she undergoes serial esophageal dilations at [facility] # Aspiration pneumonia: continue antibiotics as per primary # Dysphagia: sips for comfort; will repeat EGD prior to discharge on Monday; NPO after MN on Monday # SBO: resolved; surgery following; appreciate recs # N/V: continue antiemetics # Anemia: 2/2 to esophagitis, known PUD: continue PPI BID # Gastroparesis: continue antiemetics prn # Malnutrition: on J-tube feeds per nutrition # Constipation: controlled with bowel regimen # IDDM2: SSI per primary Will follow with you. Please call with questions
[2019-03-02] MEDS: SODIUM CHLORIDE 0.9% INJ PRN (22:06)
[2019-03-02] MEDS: AMBIEN PO PRN (22:07)
[2019-03-03] MEDS: HUMULIN R SUBQ SCH ×5 (01:31→21:45)
[2019-03-03] MEDS: PHENERGAN IV PRN ×6 (02:44→22:12)
[2019-03-03] MEDS: SODIUM CHLORIDE 0.9% INJ PRN ×3 (02:44→22:13)
[2019-03-03] MEDS: MAXIPIME 2 GM in NS 100 ML IV SCH ×2 (02:45→14:00)
[2019-03-03] MEDS: MYCELEX TROCHE PO SCH ×5 (02:50→22:13)
[2019-03-03] MEDS: REGLAN IV SCH ×4 (02:54→22:13)
[2019-03-03] MEDS: SODIUM CHLORIDE 0.9% INJ SCH (05:58)
[2019-03-03 06:31] LABS: CALCIUM 7.5 mg/dL (8.8-10.2); CREATININE 1.3 mg/dL (0.5-0.9); POTASSIUM 4.3 mmol/L (3.5-5.1)
[2019-03-03 06:33] LABS: BASO# 0.02 X1000 (0.0-0.2); BASO% 0.3 % (0.0-0.8); EOS# 0.12 X1000 (0.0-0.7); EOS% 1.5 % (0.0-10.0); HEMATOCRIT 26.7 % (37.0-47.0); HEMOGLOBIN 8.5 g/dL (12.0-16.0); IMM GRAN# 0.14 X1000 (0.0-0.04); IMM GRAN% 1.8 % (0.0-0.5); LYMPH# 1.66 X1000 (1.2-3.4); LYMPH% 21.3 % (20.5-51.1); MCHC 31.8 g/dL (33-37); MCV 84.8 FL (81-99); MONO# 0.63 X1000 (0.11-0.59); MONO% 8.1 % (1.7-9.3); MPV 12.1 FL (7.4-10.4); NEUT# 5.21 X1000 (1.4-6.5); PLT 364 X1000 (130-400); RBC 3.15 XMIL (4.2-5.4); RDW 18.4 % (11.5-14.5); WBC 7.78 X1000 (4.8-10.8)
[2019-03-03] MEDS: LANTUS INSULIN SUBQ SCH (09:44)
[2019-03-03] MEDS: MINERAL OIL JT SCH ×2 (09:44→22:13)
[2019-03-03] MEDS: ELDERTONIC JT SCH (09:45)
[2019-03-03] MEDS: DULCOLAX PR SCH (10:16)
[2019-03-03] MEDS: MIRALAX PO SCH ×2 (10:17→22:14)
[2019-03-03] MEDS: PROTONIX IV SCH (10:17)
--- NOTE | 2019-03-03 13:00 | PROGRESS NOTE ---
DATE: 03/03/2019 SUBJECTIVE: Patient has no new complaints. She is asking if she can have a liquid diet as she is spitting her saliva into a cup. PHYSICAL EXAMINATION: Temperature 98.3, pulse 100, respiratory rate 18, BP 136/92. General: Patient is awake. She is in no respiratory distress. Pleasant to talk with. HEENT: Normocephalic. Neck: Supple. Cardiovascular: Regular rate. Chest: Clear and unlabored. Abdomen: Soft. Positive jejunostomy tube. Currently receiving feeding. Neurologic: No focal changes. ASSESSMENT: 1. Severe gastroparesis. 2. Severe esophageal stenosis requiring multiple dilatations in the past. 3. Diabetes. 4. Chronic malnutrition. 5. Others. 6. Bilateral pneumonia as seen on CT. PLAN: We will continue patient in the hospital. Discussed with her that it probably would not be in her best interest to attempt a liquid diet as she is currently spitting her saliva in a cup. She will be NPO after midnight for EGD in the morning and can readdress at that point. cc: Jaime Vang MD
--- NOTE | 2019-03-03 13:59 | PROVIDER PROGRESS NOTE ---
Progress Note SUBJECTIVE: No acute overnight events. Afebrile. Patient continues have trouble managing oral secretions. Improved abdominal pain. Tolerating tube feeds.+BMs. No rectal bleeding or melena. No SOB or CP. OBJECTIVE: Last Vital Signs Temp 98.9 F 03/03/19 12:00 Pulse 98 H 03/03/19 12:00 Resp 20 03/03/19 12:00 BP 126/92 03/03/19 12:00 Pulse Ox 100 03/03/19 12:00 Height 5 ft 4 in Weight 156 lb 3 oz GEN: awake, alert, NAD HEENT: anicteric, MMM NECK: supple, no jvd PULM: CTAB, no wheezing CV: mild tachycardia, regular, no murmurs ABD: soft ND/NT, BS present, midline incision c/d/i, j-tube site c/d/i EXT: no cce NEURO: nonfocal LABS: 03/03/19 03/03/19 05:31 05:31 WBC 7.78 Hgb 8.5 L Plt Count 364 Sodium 139 Potassium 4.3 Chloride 108 H Carbon Dioxide 24 L BUN 20 Creatinine 1.3 H Glucose 114 H A/P: Ms. Kaleigh Bobby is a 43-year-old woman with a complicated history of poorly controlled insulin-dependent diabetes, gastroparesis status post pacemaker, history of NSAID-induced esophageal stricture with severe esophagitis requiring serial dilations at [facility] who presented with intractable nausea, vomiting, and dysphagia in the setting of known stricture s/p ex-lap with j-tube placement. Post-operative course complicated by SBO and constipation treated conservatively with improvement. Surgery following, appreciate assistance. The patient has been having trouble managing oral secretions. She admits to have eating solid food in the hospital prior to surgery. I am concerned that she may have recurrent food impaction. # Esophageal stricture: s/p surgical j-tube placement on tube feeds, which she will need for >90 days as she undergoes serial esophageal dilations at [facility] # Aspiration pneumonia: continue antibiotics as per primary # Dysphagia: sips for comfort; NPO after MN for repeat EGD tomorrow # SBO: resolved; surgery following; appreciate recs # N/V: continue antiemetics # Anemia: 2/2 to esophagitis, known PUD: continue PPI BID # Gastroparesis: continue antiemetics prn # Malnutrition: on J-tube feeds per nutrition # Constipation: controlled with bowel regimen # IDDM2: SSI per primary Will follow with you. Please call with questions
[2019-03-03] MEDS: VANCOMYCIN 1 GM/NS 1 GM/250 ML IVPB IV SCH (17:57)
[2019-03-03] MEDS: AMBIEN PO PRN (22:13)
[2019-03-04] MEDS: PROTONIX IV SCH ×2 (01:56→14:48)
[2019-03-04] MEDS: PHENERGAN IV PRN ×4 (02:12→14:45)
[2019-03-04] MEDS: SODIUM CHLORIDE 0.9% INJ PRN ×4 (02:12→14:46)
[2019-03-04] MEDS: MAXIPIME 2 GM in NS 100 ML IV SCH ×2 (02:12→15:07)
[2019-03-04] MEDS: REGLAN IV SCH ×3 (02:12→15:19)
[2019-03-04] MEDS: MYCELEX TROCHE PO SCH ×3 (02:12→15:05)
[2019-03-04] MEDS: SODIUM CHLORIDE 0.9% INJ SCH ×2 (05:42→15:29)
[2019-03-04] MEDS: HUMULIN R SUBQ SCH ×3 (07:05→18:35)
--- NOTE | 2019-03-04 07:13 | EKG Report ---
Test Performed on : 03/02/2019 09:43:15 AM Test Reason : Tachycardia Blood Pressure : / mmHG Vent. Rate : 099 BPM Atrial Rate : 099 BPM P-R Int : 150 ms QRS Dur : 070 ms QT Int : 352 ms P-R-T Axes : 000 -11 001 degrees QTc Int : 451 ms Normal sinus rhythm. Low voltage QRS Cannot rule out Anterior infarct , age undetermined Abnormal ECG When compared with ECG of 13-FEB-2019 07:31, Nonspecific T wave abnormality, improved in Lateral leads Confirmed by Duran BELL, Gamal Durant ([id number]) on 03/04/2019 5:05:37 PM
[2019-03-04] MEDS ORDERED: DIPRIVAN 1% ONE (08:10)
[2019-03-04] MEDS ORDERED: ZOFRAN ONE (09:08)
--- NOTE | 2019-03-04 09:18 | ENDOSCOPY OPERATIVE NOTE ---
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 PROCEDURE PERFORMED: EGD w/ balloon dilation of esophagus MEDICATIONS: Per Anesthesia TOPICAL ANESTHETIC: none CONSENT: The patient understands the risks and benefits of the procedure and understands that these r isks include, but are not limited to: sedation, allergic reaction, infection, perforation and/or bleeding. Alternative means of evaluation and treatment include, among others: physical exam, x-rays, and/or surgical intervention. The patient elects to proceed with this endoscopic procedure. HISTORY AND PHYSICAL: 03/04/2019 function. Hand hygiene and appropriate measures for infection prevention was taken. After the risks, benefits and alternatives of the procedure were thoroughly explained, Informed consent was verified, confirmed and timeout was successfully executed by the treatment team. The patient was anesthetized with topical anesthesia and the [id number] ([id number]) and [id number] ([id number]) endoscope was introduced through the mouth and advanced to the secon d portion of the duodenum. The instrument was slowly withdrawn as the mucosa was fully examined. STOMACH: Gastritis (inflammation) was found in the gastric body. Bile in the stomach was noted and it was suctioned out. Normal Fundus cardia and incisura on retroflexion. DUODENUM: The duodenal mucosa showed no abnormalities in the duodenal bulb, 1st part duodenum, and 2n d part duodenum. ESOPHAGUS: Reflux esophagitis was found in the distal esophagus. There was a stricture in the dista l esophagus and lower third esophagus. The stricture was traversable. Using a TTS-balloon the stricture was dilated up to 12mm. The balloon was held inflated for 30 seconds. TTS dilation 10-11-12 mm. Dilation was performed at . DILATOR: SIZE(S): RESISTANCE: HEME: APPEARANCE: COMMENT: Retroflexion was performed in the stomach and revealed no abnormalities. ADVERSE EVENTS: There were no complications. IMPRESSIONS: There was a stricture in the distal esophagus and lower third esophagus; Using a TTS -balloon the stricture was dilated up to 12mm; The balloon was held inflated for 30 seconds RECOMMENDATIONS: 1. Follow-up biopsy results in 2 weeks 2. Follow an anti-reflux lifestyle. The doctor recommends that you: -Maintain a healthy weight -Avoid tight fitting clothing -Eat smaller meals -Wait at least three hours after eating before lying down or going to bed -Elevate the head of your bed by 6 to 9 inches -Don't smoke and avoid alcohol -Avoid fatty or fried foods, tomato sauce, chocolate, mint, garlic, and caffeine 3. Avoid Non-steroid anti-inflammatory drugs 4. Continue Protonix 40 mg twice daily for 3 months REPEAT EXAM: Yandel Haq MD eSigned: Yandel Haq MD 03/04/2019 9:17 AM cc: CPT CODES: ICD CODES: The ICD and CPT codes recommended by this software are interpretations from the data that the [facility] staff has captured with the software. The verification of the translation of this report to the ICD and CPT co arlyn and modifiers is the sole responsibility of the health care institution and practicing physician where this report was generated. [employer] will not be held responsible for the validity of the ICD and CPT codes i ncluded on this report. AMA assumes no liability for data contained or not contained herein. CPT is a registered tra demark of the [employer]. PATIENT NAME: Kaleigh Bobby MR#: [id number]
[2019-03-04] MEDS ORDERED: DILAUDID ONE (09:26)
[2019-03-04] MEDS: DULCOLAX PR SCH (13:48)
[2019-03-04] MEDS: LANTUS INSULIN SUBQ SCH (13:50)
[2019-03-04] MEDS: MINERAL OIL JT SCH (13:50)
[2019-03-04] MEDS: MIRALAX PO SCH (13:50)
[2019-03-04] MEDS: ELDERTONIC JT SCH (13:51)
--- NOTE | 2019-03-04 13:55 | GENERAL SURGERY PROGRESS NOTE ---
DATE: 03/04/2019 SUBJECTIVE: She is doing well today, No significant pain or vomiting. She went underwent EGD with esophageal dilation up to 12 mm. OBJECTIVE: She is afebrile. Vital signs are stable.General: She is awake, alert, oriented x3. No acute distress GI soft, nontender, nondistended. Incision is clean, dry, and intact. Her J- tube is intact. Her tube feeds are running at goal of 45 mL an hour. ASSESSMENT AND PLAN: A 43-year-old female with severe esophageal stricture, status post jejunostomy tube placement. She seems to be generally improved and is safe to discharge home from my standpoint. I will see her back on for a wound check. cc: Samm Mobley MD
[2019-03-04] MEDS: NORCO-5 PO PRN (15:03)
[2019-03-04] MEDS: CARAFATE LIQUID PO SCH ×3 (15:04→18:16)
[2019-03-04 16:01] VITALS: BP 95/71
--- NOTE | 2019-03-04 19:54 | DISCHARGE SUMMARY ---
ADMISSION DATE: 02/12/2019 DISCHARGE DATE: 03/04/2019 DISCHARGE DIAGNOSES: 1. Severe gastroparesis. 2. Aspiration type pneumonia. 3. Esophageal stenosis. 4. Reported diabetes. 5. Protein malnutrition . 6. Type 2 diabetes. CONSULTATIONS: Gastroenterology Dr. Cano, surgery Dr. Mobley. PROCEDURES: EGD on 02/[address] Cano and I think another endoscopy on the per Dr. Haq. She had a JJ an ostomy placed because she has severe esophageal stricture. Briefly this is a 43-year-old female well known to our service. In her report she is diabetic, chronic renal failure, gastroparesis. I do not think she clearly has diabetes in the sense of because A1c is 5.9, she may have had start off with her blood sugars have been pretty normal but in any case she came in with intractable nausea, vomiting, which she does all the time, Reglan is not working. GI was consulted. Again she had the EGD on the which showed a severe esophageal stricture. I do not think she had a stretching at that time. Dr. Haq is consulted and seen by Dr. Ford at [facility] for serial dilations. Surgery was consulted for enteral feeding access and she had a J-tube placed on the , she was managed with that. Abdominal CT showed proximal small-bowel obstruction, constipation and bronchopneumonia. That was on the . She was treated for pneumonia and I think her small-bowel obstruction resolved. She underwent repeat endoscopy per GI because she was having discomfort. She tolerated her J tube feedings without problem. She underwent endoscopy per Dr. Haq and she had a stricture and she was dilated up to 12 mm without complication. She had some gastritis but otherwise was stable. Recommended Protonix so she was discharged on Ambien 10 at bedtime, Augmentin 600 q.12 for 7 days, Protonix 40 b.i.d. for a month with 1 refill, Reglan 10 t.i.d. and she was to continue J-tube feeds which at this point her tube feeds were Glucerna at a goal rate of 45 an hour which she has [place] at discharge so we will continue to follow. DISCHARGE CONDITION: Is stable. Recommend follow up with PCP and Dr. Cano in 1 to 2 weeks. Return for worsening abdominal pain, nausea, vomiting. TIME SPENT: 32 minutes. cc: Jermain Gregory MD
== END 2019-03-04 18:57 | disposition home health service (06) | DRG 73 ==
LOC: SUPCPDRO → ED 10:26 → SUATTDRO 16:24 → EDIPHOLD 16:24 → 3S 02-13 00:15 → 4N 02-13 12:37
PROVIDERS: ATTEND Internal Medicine
CPT/HCPCS: 36430; 71010; 71045; 74000; 74018; 74177; 80048; 80053; 80202; 81001; 81025; 82009; 82040; 82150; 82270; 82465; 82805; 82948; 83036; 83690; 83735; 84100; 84132; 84134; 84450; 84478; 85014; 85018; 85025; 85610; 85730; 86850; 86900; 86901; 86920; 87040; 87088; 93005; 93010; 94761; 96361; 96365; 96366; 96368; 96375; 99285; A9270; C1726; C9113; J0131; J0330; J0610; J0690; J0692; J1170; J1815; J2270; J2405; J2550; J2765; J3010; J3370; J3475; J3480; J7030; J7040; J7050; P9016; Q9967; S0028; S0164; XXXXX

== ENCOUNTER 2019-04-15 13:30 | Inpatient (IN) ==
[2019-04-15] MEDS ORDERED: PHENERGAN IM ONE (14:55)
[2019-04-15] MEDS ORDERED: DILAUDID IV ONE (14:56)
[2019-04-15] MEDS ORDERED: BENADRYL IV ONE (15:38)
[2019-04-15 15:48] LABS: BASO# 0.02 X1000 (0.0-0.2); BASO% 0.2 % (0.0-0.8); EOS# 0.05 X1000 (0.0-0.7); EOS% 0.6 % (0.0-10.0); HEMOGLOBIN 13.8 g/dL (12.0-16.0); IMM GRAN# 0.02 X1000 (0.0-0.04); IMM GRAN% 0.2 % (0.0-0.5); LYMPH# 1.77 X1000 (1.2-3.4); LYMPH% 20.4 % (20.5-51.1); MCH 27.4 PG (27-31); MCHC 36.3 g/dL (33-37); MCV 75.4 FL (81-99); MONO# 0.33 X1000 (0.11-0.59); MONO% 3.8 % (1.7-9.3); NEUT# 6.49 X1000 (1.4-6.5); NEUT% 74.8 % (42.2-75.2); PLT 308 X1000 (130-400); RBC 5.04 XMIL (4.2-5.4); WBC 8.68 X1000 (4.8-10.8)
[2019-04-15 16:21] LABS: ALB/GLOB RATIO 1.3; CALCIUM 9.4 mg/dL (8.8-10.2); CREATININE 3.1 mg/dL (0.5-0.9); TOTAL BILIRUBIN 0.77 mg/dL (0.20-1.00)
[2019-04-15 16:26] LABS: POTASSIUM 2.3 mmol/L (3.5-5.1)
[2019-04-15] MEDS ORDERED: POTASSIUM CHLORIDE 40 MEQ in NS 1,000 ML IV ONE ×2 (16:31→17:33)
[2019-04-15] MEDS ORDERED: KLOR-CON PO ONE (16:32)
--- NOTE | 2019-04-15 16:49 | PROVIDER DOCUMENTATION ---
This chart was entered by Amy Shankar Scribe, acting as scribe for Jm Guardado MD. HPI-Abdominal Pain/GI Problem - General Chief Complaint: Abdominal Pain Stated Complaint: N/V/D Time Seen by Provider: 04/15/19 14:45 Source: patient Allergies/Adverse Reactions: Patient Allergies Allergy/AdvReac Type Severity Reaction Status Date / Time No Known Allergies Allergy Verified 02/12/19 10:46 Home Medications: Home Medication List Medication Instructions Recorded Confirmed Last Taken Type Zolpidem [Ambien] 10 mg PO QHS 02/12/19 02/12/19 1 Day Ago History ~02/11/19 Amoxicillin/Potassium Clav 600 mg PO Q12H #100 ml 03/04/19 Unknown Rx [Augmentin Es-600 Suspension] Metoclopramide [Reglan] 10 mg PO TID AC #90 tab 03/04/19 Unknown Rx Pantoprazole Sodium [Protonix] 40 mg PO BID #60 tablet. 03/04/19 Unknown Rx - History of Present Illness-ABD Nature of Presenting Problems: Patient is a 43 year old female who presents with generalized lower abdominal pain, nausea, and vomiting. States history of gastroparesis. Denies checking blood sugar today. States she was taken off of her insulin by her PCP due to her A1C being 5. Reports she was suppose to see Dr. Mobley today so he could replace her feeding tube because the feeding tube popped out 3 weeks ago. Patient requested Dilaudid for pain and Phenergan for nausea. Abdominal Pain Onset Location: reports: other (generalized lower) Pain Radiation: reports: no radiation Quality of Pain: reports: aching Severity in ED: reports: mild Onset/Duration: reports: gradual Timing: reports: still present Activities at Onset: reports: light activity Associated Symptoms: reports: nausea, vomiting Last BM: 1 week ago Bruising or Bleeding Gums?: No Similar Symptoms Previously?: Yes Recently seen or treated by another doctor?: Yes Review of Systems - Adult - REVIEW OF SYSTEMS - ADULT Constitutional: reports: no symptoms reported. denies: chills, fever, fatique Eyes: reports: no symptoms reported Ears, Nose, Mouth & Throat: reports: no symptoms reported Cardiovascular: reports: no symptoms reported Respiratory: reports: no symptoms reported Gastrointestinal: reports: see HPI, abdominal pain (generalized lower), nausea, vomiting. denies: diarrhea Genitourinary: reports: no symptoms reported Musculoskeletal: reports: no symptoms reported Integumentary: reports: no symptoms reported Neurological: reports: no symptoms reported Psychiatric: reports: no symptoms reported Endocrine: reports: no symptoms reported Hematologic/Lymphatic: reports: no symptoms reported Allergic/Immunologic: reports: no symptoms reported All Other Systems: Reviewed and Negative Past History - Adult - PAST MEDICAL HISTORY-ADULT Review of Records: reports: Old Records Reviewed, Nursing Assessment Review, Medications Reviewed, Social history reviewed & non-contributory. Major Childhood Illnesses: reports: denies history Cardiovascular: reports: HTN, hyperlipidemia Respiratory: reports: denies history Gastrointestinal: reports: GERD (with esophagitis and stenosis), GI bleed, ulcer , other (diabetic gastroparesis, erosive gastritis and esophagitis; gastric pacemaker) Obstetrical/Gynecological: reports: denies history Genitourinary: reports: kidney disease, other (ammenorrhea for 1 year) Musculoskeletal: reports: denies history Neurological: reports: other (DM neuropathy) Psychiatric: reports: anxiety, depression Endocrine/Immune: reports: anemia, Diabetes Other Conditions: reports: denies history Additional History: frequent ER visits - PRIOR SURGERIES/PROCEDURES Surgical/Procedure History: reports: cholecystectomy, indwelling device (Portacath), other (gastric stimulator) - IMMUNIZATION STATUS Childhood Immunizations: See Nurse Assessment Flu Vaccine: See Nurse Assessment - FAMILY HISTORY Family History: reviewed, not pertinent - SOCIAL HISTORY Smoking: denies Substance Use: alcohol, marijuana Alcohol Use Frequency: occasionally Physical Exam-General - PHYSICAL EXAM-ADULT Initial Vital Signs Reviewed: Yes - CONSTITUTIONAL General Appearance: alert, no apparent distress. negative: lethargic - HEAD, EARS, NOSE, MOUTH & THROAT HENMT: normocephalic/atraumatic, moist mucous membranes. negative: angioedema - RESPIRATORY Respiratory: chest non-tender, lungs clear, normal breath sounds. negative: crackles, stridor - CARDIOVASCULAR Cardiovascular: normal peripheral pulses, regular rate, rhythm. negative: tachycardia - GASTROINTESTINAL (ABDOMEN) Abdominal Exam: normal bowel sounds, non tender, soft. negative: guarding - MUSCULOSKELETAL Extremity: non-tender, normal inspection. negative: deformity, erythema - SKIN Integumentary: normal color, normal turgor, warm/dry. negative: diaphoresis, ecchymosis, jaundice - NEUROLOGIC Neurologic: grossly normal. negative: aphasia, facial droop - PSYCHIATRIC Psych/Mental Status: normal mood/affect, oriented x 3. negative: anxious Progress - PLAN OF CARE/RESULTS Progress/Plan/Lab Results: Vital Signs - 8 hr 04/15/19 14:01 Temperature 97.5 F L Pulse Rate 95 H Respiratory Rate 20 Blood Pressure 84/65 O2 Sat by Pulse Oximetry 99 Orders Category Date Time Status Saline Loc DIRECTED Care 04/15/19 14:04 Active NPO Diet 04/15/19 14:[address] ABD/PELVIS W/IV CONT ONLY [CT] Stat Exams 04/15/19 14:55 Ordered AMYLASE [CHEM] Stat Lab 04/15/19 14:04 Uncollected CBC WITH ELECTRONIC DIFF [HEME] Stat Lab 04/15/19 14:04 Uncollected COMPREHENSIVE METABOLIC PANEL [CHEM] Stat Lab 04/15/19 14:04 Uncollected LIPASE [CHEM] Stat Lab 04/15/19 14:04 Uncollected URINALYSIS W/POSS RFLX CULT [URINALYSIS] Stat Lab 04/15/19 14:04 Uncollected URINE DRUG SCREEN Stat Lab 04/15/19 14:55 Uncollected Hydromorphone [Dilaudid] Med 04/15/19 14:56 Discontinued 0.5 mg IV NOW ONE Promethazine [Phenergan] Med 04/15/19 14:55 Discontinued 25 mg IM NOW ONE Result Diagrams: 04/15/19 15:20 04/15/19 15:20 - CONSULTS/PCP/HOSPITALIST Notification #1 *Consult/PCP/Hospitalist*: NELL Tyler for Hospitalist Time Discussed: 17:03 Reason/Comments: Dr. Guardado consulted with Nayeli about patient Consult Disposition: Will see in ED, Admit Departure - Departure Date of Disposition Decision: 04/15/19 Time of Disposition Decision: 16:48 DIAGNOSIS: Dehydration, Intractable vomiting, Hypokalemia, Renal insufficiency Disposition: ADMITTED INPATIENT 09 Certified Medical Emergency: Emergent Condition: Fair Referrals and Follow-Ups: Charan Jimenes MD [Primary Care Provider] - - Critical Care Note This patient required my direct & personal management of CC.: Yes Total Time (mins): 36 Critical Care Statement: This patient required my direct personal management to treat or rule out processes, the absence of which, could potentiallly result in sudden, clinically significant life or limb threatening deterioration. Attestation - Physician/ GAUDENCIO Attestation Patient care was provided by Advanced Practice Provider:: No The physician spent face to face time with patient:: Yes Advanced Practice Provider documentation review:: Supervising physician onsite and consulted in the evaluation and care of this patient. The physician did have a face to face encounter with the patient. This chart was documented by the indicated scribe, (Amy Shankar, Gonzalo) and accurately reflects the services I performed and decisions made by me, Jm Guardado MD, as attested by the provider's signature.
[2019-04-15] MEDS ORDERED: NS 1,000 ML IV ONE (17:30)
[2019-04-15] MEDS ORDERED: BENADRYL IV PRN (17:33)
[2019-04-15 17:35] LABS: URINE SOURCE CATH
[2019-04-15 17:38] LABS: BILIRUBIN URINE SMALL (NEGATIVE); BLOOD URINE NEGATIVE (NEGATIVE); COLOR YELLOW; GLUCOSE URINE NEGATIVE (NEGATIVE); KETONE URINE NEGATIVE (NEGATIVE); LEUKOCYTES URINE NEGATIVE (NEGATIVE); NITRITE URINE NEGATIVE (NEGATIVE); PROTEIN URINE 200 mg/dL (NEGATIVE); SP GRAVITY URINE 1.021; TURBIDITY URINE CLEAR (CLEAR); UROBILINOGEN URINE 2 mg/dL (NORMAL)
[2019-04-15 17:39] LABS: UR EPITHELIAL CELLS <10 /HPF (<10); URINE BACTERIA NEGATIVE /HPF; URINE RBC <10 /HPF (<10); URINE WBC <10 /HPF (<10)
[2019-04-15 17:51] LABS: UR AMPHETAMINES QUAL NONE DETECTED (NONE DETECT); UR BARBITUATES QUAL NONE DETECTED (NONE DETECT); UR BENZODIAZEPIN QUAL NONE DETECTED (NONE DETECT); UR CANNABINOIDS QUAL PRESUMPTIVE POSITIVE (NONE DETECT); UR COCAINE QUAL NONE DETECTED (NONE DETECT); UR METHADONE QUAL NONE DETECTED (NONE DETECT); UR OPIATES QUAL NONE DETECTED (NONE DETECT); UR OXYCODONE QUAL NONE DETECTED (NONE DETECT); UR PCP QUAL NONE DETECTED (NONE DETECT)
--- NOTE | 2019-04-15 18:16 | Diag Imaging Result Doc PS360 ---
EXAM: CT ABDOMEN/PELVIS W/O CONTRAST 04/15/2019 HISTORY: PAIN TECHNIQUE: This exam was performed using automated exposure control, adjustment of mA or kV according to patient size, and/or use of iterative reconstruction technique. COMMENT: There is no evidence of acute disease in the visualized portion of the chest. The opacities which were present bilaterally on 02/26/2019 have resolved. There is still some generalized anasarca. There are surgical clips in the gallbladder fossa. There is no evidence of nephrolithiasis or hydronephrosis. There is a gastric pacemaker. There is no evidence of bowel obstruction. Compared to the previous study the small bowel dilatation and gastric distention which were previously present have resolved. The urinary bladder is not significantly distended. There is an IUD. The regional skeleton appears to be intact. IMPRESSION: No evidence of acute disease. Electronically signed by Napoleon Bearden 04/15/2019 6:14 PM
--- NOTE | 2019-04-15 19:57 | HISTORY AND PHYSICAL ---
ADDENDUM: I agree with most components of history, physical, assessment and plan. In brief, Ms. Bobby is a 43 years old woman with past medical history of intractable nausea and vomiting, esophageal strictures requiring multiple esophageal dilatations, recent hospital admission for G-tube placement for nutrition who comes in with chief complaints of J-tube dislodgement since 3 weeks ago. The timing of her complaints is questionable since she was discharged from the hospital approximately 5 weeks ago and she states that her J-tube functioned fine for 2 weeks and it came out and she did not contact surgery office for some time because of unclear reasons and she kept on drinking liquids through her mouth. However, she started developing nausea and vomiting yesterday and that is why she decided to come to the hospital now. Currently, she does have electrolyte abnormalities and acute kidney failure, so hospitalist team was consulted for further managed. OBJECTIVE: She has depressed look on her face. She does not engage in meaningful conversation. Her answers are short and tamela. She is worried about the pain medication regimen.Vital signs: Temperature is 97.5 degrees, pulse 113, respiratory rate 14, blood pressure 130/94. She is saturating 100% on room air. PHYSICAL EXAMINATION: She has a blank stare on her face. Appears a depressed. Her oral cavity is dry. She is frequently spitting yellowish secretion through her mouth, which she is not able to swallow. LUNGS: Air entry bilaterally equal. No wheeze, rhonchi, crackles. CARDIOVASCULAR: S1, S2 normal. No murmur or gallop. She has a right-sided chest port. ABDOMEN: Has scars of previous abdominal surgeries, midline, as well as transfers. On palpation, no tenderness. She has a right-sided lower quadrant gastric pacemaker. She had a left quadrant jejunostomy wound which appears to have been healing now. She does not have a bowel sounds. No lower extremity edema. She appears chronically ill and cachectic. LABS: Labs are significant for hypokalemia, low bicarbonate, acute kidney injury, positive urine cannabinoids screen. Abdomen CT did not detect any evidence of acute disease. ASSESSMENT AND PLAN: 1. Dislodged jejunostomy tube without any complication. 2. Hypokalemia. 3. Acute kidney injury due to profound volume depletion. 4. Prior history of intractable nausea, vomiting, status post gastric pacemaker. 5. Medical noncompliance. 6. Depression. PLAN: I will start patient on intravenous fluid resuscitation, potassium supplementation. We will follow up with electrolytes tomorrow and will consult surgery for J-tube replacement. If J- tube is replaced and her electrolytes are better, my plan is to discharge her home tomorrow. I would also consider consulting palliative team if she remains inside the hospital for goals of care management. Plan of care discussed with her. All of her questions have been answered. cc: Clay Still MD
--- NOTE | 2019-04-15 19:57 | HISTORY AND PHYSICAL ---
CHIEF COMPLAINT: Nausea and vomiting, dislodged J-tube. HISTORY OF PRESENT ILLNESS: This is a 43-year-old cachectic female who is well known to our service for multiple admissions. She has a history of gastroparesis status post gastric pacemaker, esophageal stricture status post frequent esophageal dilatations, diabetes mellitus with noncompliance, having a J-tube placed 02/22/2019 for a nutrition. She stated that she was tolerating feedings well. The tube was working when she went home, but it became dislodged within the 1st 2 weeks of discharge. She states it has been out now for about 3 weeks. She did not call the surgeon to notify him until the last day or 2. She states that when the tube came out she was able to take in small amounts of liquids. She was taking no oral medications at home but over the last 24 to 48 hours she has developed intractable nausea and vomiting, prompting her visit to the emergency room. PAST MEDICAL HISTORY: 1. Gastroparesis status post gastric pacemaker by Dr. Stanford at [facility] in 2014. 2. Diabetes mellitus type 2, noncompliance with medications. Blood sugar checks as well as diet. 3. Insomnia. 4. Chronic kidney disease stage 3. 5. Hypertension. 6. Esophageal strictures requiring frequent dilatations. 7. History of gastritis. 8. Intractable nausea and vomiting. 9. Dysphagia secondary to strictures. PAST SURGICAL HISTORY: Cholecystectomy, gastric pacemaker in 2014, Port-A-Cath placement, esophageal dilatation and J-tube placement in February 2019. SOCIAL HISTORY: She denies alcohol, tobacco, or illicit drug use. She does continue to smoke marijuana, having positive drug screens and positive drug screen today as well as positive drug screen in February and March, April, May 2018. She does carry a history of hyperemesis cannabinoid syndrome as well. ALLERGIES: No known drug allergies. HOME MEDICATIONS: The patient states she has been taking no medications. REVIEW OF SYSTEMS: Discussed with patient with pertinent positives stated in HPI. She denied any syncope, dizziness, chest pain, palpitations, any shortness of breath, cough, fever, chills, night sweats, any black or bloody vomitus or stools, any hematuria, dysuria, frequency, urgency. PHYSICAL EXAMINATION: GENERAL: This is 43-year-old cachectic female who is lying on the stretcher in the emergency room in no distress as she has recently been medicated. VITAL SIGNS: Blood pressure is 128/90 with a heart rate of 106, respirations are 18, temperature is 97.6 degrees with room air sat 97%. HEENT: Head is normocephalic, atraumatic. Mucous membranes are dry. NECK: Supple with trachea midline. Mucous membranes are moist. NECK: Supple. Trachea midline. CARDIOVASCULAR: Regular rate and rhythm. S1, S2 appreciated. She is tachycardic. Calves are nontender, bilateral, peripheral pulses palpable x4 extremities. PULMONARY: Breath sounds clear. No increased work of breathing noted GASTROINTESTINAL: Abdomen is soft, nontender, nondistended. Bowel sounds in all 4 quadrants. J- tube site has no drainage. NEUROLOGIC: She is sedated as she has had medication. She does answer questions. SKIN: Warm and dry. LABORATORY DATA: WBC is 8.6 with hemoglobin 13.8, hematocrit 38, platelets of 308,000. Sodium is 140, potassium 2.3, CO2 of 16, BUN is 20 with a creatinine of 3.1, glucose of 196. Urinalysis essentially negative. Urine drug screen is presumptive positive for cannabinoids. CT of the abdomen and pelvis reveals no evidence of acute disease. ASSESSMENT AND PLAN: 1. Dislodged J-tube. 2. Acute kidney injury in the setting of chronic kidney disease secondary to profound volume depletion. 3. Hypokalemia. 4. Intractable nausea and vomiting. 5. Cannabinoid hyperemesis syndrome. 6. Status post gastric pacemaker. 7. Medical noncompliance. PLAN: The patient will be admitted to the medical-surgical floor. IV hydration. n.p.o. at present. telemetry. recheck potassium in the morning. total of a 2 L bolus and continue saline at 125 an hour. Phenergan IM for nausea,with Benadryl for IV for nausea , as this has worked in the past. Reglan 10 mg IV q.6 hours, Nexium 40 q.12. consult General surgery regarding her J-tube. CBC and a renal profile in the morning. Plan discussed with Dr Still. Further treatments pending hospital course. Dictated by NELL Rubi for Clay Still MD cc: NELL Rubi MD I agree with mosst components of history, physical, assessment and plan. A separate addendum has been dictated. MTDD
[2019-04-15] MEDS: PHENERGAN IM PRN (20:13)
[2019-04-15] MEDS: REGLAN IV SCH (20:14)
[2019-04-15] MEDS: NEXIUM IV SCH (20:14)
[2019-04-15 20:21] LABS: ALBUMIN 4.1 g/dL (3.5-5.0); CALCIUM 9.5 mg/dL (8.8-10.2); CREATININE 2.8 mg/dL (0.5-0.9); PHOSPHORUS 4.7 mg/dL (2.7-4.5)
[2019-04-15] MEDS: NS 1,000 ML IV SCH (20:22)
[2019-04-15 20:36] LABS: POTASSIUM 2.1 mmol/L (3.5-5.1)
[2019-04-16] MEDS: REGLAN IV SCH ×4 (00:13→18:07)
[2019-04-16] MEDS: NS 1,000 ML IV SCH (04:25)
[2019-04-16] MEDS: NEXIUM IV SCH ×2 (06:04→11:26)
[2019-04-16] MEDS ORDERED: PROTONIX IV SCH (06:45)
[2019-04-16] MEDS ORDERED: BENADRYL CREAM TOP PRN (08:29)
[2019-04-16] MEDS ORDERED: LEVSIN-SL SL PRN (08:30)
[2019-04-16] MEDS ORDERED: SODIUM CHLORIDE 0.9% INJ SCH (08:30)
[2019-04-16 08:35] LABS: CALCIUM 8.2 mg/dL (8.8-10.2); CREATININE 2.1 mg/dL (0.5-0.9); PHOSPHORUS 3.5 mg/dL (2.7-4.5)
[2019-04-16 08:44] LABS: POTASSIUM 2.5 mmol/L (3.5-5.1)
[2019-04-16] MEDS: POTASSIUM CHLORIDE 20 MEQ/SWI 20 MEQ/100 ML IVPB IV SCH ×4 (10:09→19:15)
[2019-04-16] MEDS ORDERED: POTASSIUM CHLORIDE 10% LIQUID PO ONE (10:34)
[2019-04-16] MEDS ORDERED: MAGNESIUM SULFATE 2 GM/S.W.I. 2 GM/50 ML IVPB IV ONE (10:45)
--- NOTE | 2019-04-16 11:13 | PROGRESS NOTE ---
DATE: 04/16/2019 INTERVAL HISTORY: Ms. Bobby did not have any acute overnight events. SUBJECTIVE: She wants to eat. Her potassium is still low. The patient's mother was not at bedside. On my request, patient called her mother and she came at the bedside. I had a chris discussion with the patient about her medical conditions. VITALS: Temperature 98.6 degrees, pulse 97, respiratory 24, blood pressure 110/67, and saturating 100% on room air. PHYSICAL EXAMINATION: General: Does not appear in any acute distress. She has a depressed look. HEENT: Oral cavity is moist. She is frequently spitting secretions out of her mouth during my examination. Lungs: Air entry bilaterally equal. No wheeze, rhonchi, or crackles. Cardiovascular: S1, S2 normal. No murmur, rub, or gallop. Her tachycardia is improving. She has a right-sided chest port. Abdomen: She has vertical and transverse scars of previous abdominal surgeries. No tenderness. She has a right-sided lower quadrant gastric pacemaker subcutaneously implanted. She has a left quadrant jejunostomy wound which appears to have been closing now. No bowel sounds. Extremities: No lower extremity edema. Neurologic: She is alert and oriented x3. She appears depressed. LABORATORY: Hemoglobin and platelets are stable. She does have hypernatremia and hyperchloremia with hypokalemia. Her CATERINA is improving. MICROBIOLOGY: No data. IMAGING: Abdomen and pelvis CT yesterday did not have any evidence of acute disease. ASSESSMENT AND PLAN: 1. Dislodged jejunostomy tube without any complication. This was dislodged 3 weeks ago, but the patient never contacted the patient. He only presented yesterday. Surgical Team has been consulted for replacement of jejunostomy tube, and will resume feeding as per surgery recommendations. 2. Hypernatremia, hyperchloremia, acute kidney injury, and hypokalemia due to profound volume depletion. After jejunostomy tube came out, patient was eating by mouth, and taking clear liquids. She was keeping 50% down, 50% spitting out; that has contributed to intravascular volume depletion. I will change her intravenous fluids to hypotonic fluids, and continue to replace potassium. Follow up with potassium in the evening time. I will keep her on Reglan for her history of repeated nausea and vomiting. I will also give her sublingual hyoscyamine for abdominal cramps. I will avoid all opioids and IV Phenergan for her. 3. Medical noncompliance and depression. I discussed with the patient and mother about outpatient management. I will also start her on clear liquid diet until Surgery sees her, which she was taking at home. 4. Disposition: I will continue to monitor patient on medical floor. I had a chris discussion with the patient and her mother at bedside that the most central to her repeated hospital admissions is her ignorance and negligence of her own health. She might at some day because of she not taking care of herself. She has not seen her sql consultant at the [facility] for months. I also counseled her that if she keeps on using marijuana, she may present with cyclic vomiting again. They understood it. However, I did not get any response from patient about what she would do to avoid further recurrence of health problems. She states she would like to have some liquids. The palliative care team has been consulted. I have been informed that patient's code status is DNR level 1. Plan of care discussed with the patient and her mother extensively. All of their questions have been answered. cc: Clay Still MD MTDD
[2019-04-16] MEDS: POTASSIUM CHLORIDE 20 MEQ in D5W 1,000 ML IV SCH (11:25)
[2019-04-16] MEDS: PHENERGAN IM PRN (14:13)
--- NOTE | 2019-04-16 20:02 | GENERAL SURGERY CONSULTATION ---
DATE: 04/16/2019 REASON FOR CONSULTATION: Replacement of feeding jejunostomy tube. HISTORY OF PRESENT ILLNESS: This is a 43-year-old female with a long history of severe esophageal strictures secondary to ulcers and esophagitis requiring frequent esophageal dilations and causing poor oral feeding tolerance. She also had diabetes melitis with gastroparesis status post gastric pacemaker placement. She has been under the care of [facility] gastroenterologists where she has undergone multiple dilation procedures until earlier this summer when she presented to our hospital and had a severe stricture. I was consulted to place a jejunostomy tube until she could get back to [facility] for future dilations. She has not consulted with surgery for possible esophagectomy. Her jejunostomy was placed on 02/22/2019. She then was able to begin J-tube feedings. She went home, and apparently her J-tube fell out 3 weeks ago. She did not notify anyone of this. Her wound has healed. It is no longer draining. She has been getting by with this some liquids by mouth, but she presented to the hospital with recurrent nausea and vomiting and severe hypokalemia as well as acute kidney injury. I have been reconsulted for possible replacement of the feeding jejunostomy. PAST MEDICAL HISTORY: As described above in the HPI. Also chronic kidney disease, hypertension. PAST SURGICAL HISTORY: Cholecystectomy, gastrojejunostomy placement, open jejunostomy placement, gastric pacemaker, [id number]. HOME MEDICATIONS: Apparently she reports no home medications at this time. ALLERGIES: No known drug allergies. SOCIAL HISTORY: She denies tobacco, alcohol or illicit drug use. She does smoke marijuana. She also has been reportedly noncompliant in the past. FAMILY HISTORY: Reviewed and noncontributory. REVIEW OF SYSTEMS: Ten systems reviewed and negative except as noted above. PHYSICAL EXAMINATION: Vital Signs: Temperature 98.7 degrees, pulse 92, respirations 24, blood pressure 101/67, O2 saturation 100%. General: Well-developed female who appears chronically ill but in no acute distress. Neck: Supple no thyromegaly. Cardiovascular: Regular rate and rhythm. Respiratory: Bilateral breath sounds. No work of breathing. Gastrointestinal: Soft, nontender, nondistended. No organomegaly or mass. Well-healed midline incision. No drainage or erythema. Extremities: No clubbing, cyanosis, or edema. Skin: Warm and dry. No rash. Musculoskeletal: Moves all extremities equally and well. LABORATORY DATA: CBC reviewed and unremarkable. Metabolic profile reviewed and notable for potassium of 2.1 on admission, now 3.3, BUN 18, creatinine 2.1, albumin 3.0. Her weight is significantly decreased, noted to be 151 pounds on discharge March 04 and 125 pounds yesterday when admitted. IMAGING: CT scan was performed secondary to nausea, vomiting, abdominal pain. There is no evidence of acute disease. ASSESSMENT AND PLAN: A 43-year-old female with severe esophageal stricture and dysphagia. I had a long discussion with her, and it is my opinion that immediate replacement of the J-tube is not warranted at this time. She is known to be noncompliant. If she pulls out another J-tube, that poses a significant risk to her and re-operating on her in such a short amount of time is also at increased risk. My suggestion would be to initiate total parenteral nutrition for the time being, perhaps transfer her back to [facility] where her gastroenterologists have been caring for her stricture, and they may need to coordinate with a GI surgeon for at least consideration of palliative esophagectomy. cc: Samm Mobley MD MTDD
[2019-04-16 22:01] LABS: BASO# 0.03 X1000 (0.0-0.2); BASO% 0.2 % (0.0-0.8); EOS# 0.07 X1000 (0.0-0.7); EOS% 0.5 % (0.0-10.0); HEMATOCRIT 31.1 % (37.0-47.0); HEMOGLOBIN 10.7 g/dL (12.0-16.0); IMM GRAN# 0.02 X1000 (0.0-0.04); IMM GRAN% 0.2 % (0.0-0.5); LYMPH# 1.13 X1000 (1.2-3.4); LYMPH% 8.8 % (20.5-51.1); MCH 27.3 PG (27-31); MCHC 34.4 g/dL (33-37); MCV 79.3 FL (81-99); MONO# 0.68 X1000 (0.11-0.59); MONO% 5.3 % (1.7-9.3); NEUT# 10.84 X1000 (1.4-6.5); PLT 239 X1000 (130-400); RBC 3.92 XMIL (4.2-5.4); RDW 16.7 % (11.5-14.5); WBC 12.77 X1000 (4.8-10.8)
[2019-04-17] MEDS: REGLAN IV SCH ×5 (00:21→22:59)
[2019-04-17] MEDS: POTASSIUM CHLORIDE 20 MEQ in D5W 1,000 ML IV SCH ×2 (00:21→15:56)
[2019-04-17] MEDS: PHENERGAN IM PRN (06:09)
[2019-04-17] MEDS ORDERED: POTASSIUM CHLORIDE 60 MEQ in NS 500 ML IV ONE (07:51)
[2019-04-17 09:07] LABS: BASO# 0.01 X1000 (0.0-0.2); BASO% 0.1 % (0.0-0.8); EOS# 0.11 X1000 (0.0-0.7); EOS% 1.5 % (0.0-10.0); HEMATOCRIT 29.8 % (37.0-47.0); HEMOGLOBIN 10.4 g/dL (12.0-16.0); LYMPH# 1.34 X1000 (1.2-3.4); LYMPH% 18.2 % (20.5-51.1); MCH 27.4 PG (27-31); MCHC 34.9 g/dL (33-37); MCV 78.6 FL (81-99); MONO# 0.55 X1000 (0.11-0.59); MONO% 7.5 % (1.7-9.3); NEUT# 5.34 X1000 (1.4-6.5); NEUT% 72.7 % (42.2-75.2); PLT 220 X1000 (130-400); RBC 3.79 XMIL (4.2-5.4); RDW 16.6 % (11.5-14.5); WBC 7.35 X1000 (4.8-10.8)
[2019-04-17 09:51] LABS: CALCIUM 8.1 mg/dL (8.8-10.2); CREATININE 2.3 mg/dL (0.5-0.9); MAGNESIUM 2.1 mg/dL (1.5-2.7); PHOSPHORUS 1.6 mg/dL (2.7-4.5); POTASSIUM 3.4 mmol/L (3.5-5.1)
[2019-04-17] MEDS: NEXIUM IV SCH (11:01)
[2019-04-17] MEDS: SODIUM CHLORIDE 0.9% INJ SCH (11:02)
[2019-04-17] MEDS: PHENERGAN IV PRN ×3 (12:42→23:20)
--- NOTE | 2019-04-17 18:00 | PROGRESS NOTE ---
DATE: 04/17/2019 INTERVAL HISTORY: The patient reports some intermittent nausea, but markedly improved from previous. Tolerating some limited liquids. Discussed with patient that she really needs to be taking nutrition shakes regularly if at all possible. She stated she did not like them. Reinforced to patient that she has to have some form of protein intake and that she can use whatever type or flavor she likes, but if all she can take is liquid, she has to have some form of liquid protein. No new complaints. No acute events overnight. REVIEW OF SYSTEMS: A 12 point review of systems negative except as per Interval History. LABORATORY DATA: WBC 7.3, hemoglobin 10.4, hematocrit 29.8, platelets 220,000. Sodium 136, potassium 3.4, BUN 13, creatinine 2.3, glucose 173, phosphorus 1.6. Magnesium 2.1. VITALS: Temperature maximum 98.3 degrees, pulse 109, respirations 20, blood pressure 103/69, O2 saturation 99% on room air. PHYSICAL EXAMINATION: General: No acute distress. Vitals: As above. HEENT: Normocephalic, atraumatic. Moist mucous membranes. No cervical adenopathy. Cardiovascular: Minimally tachycardic, but regular. No murmurs noted. Right-sided port in place. Pulmonary: Clear to auscultation bilaterally. No wheezing, rales, or rhonchi. Abdomen: Soft, nontender, nondistended. Bowel sounds positive. Left-sided jejunostomy wound without any significant drainage. Extremities: Peripheral pulses intact. No clubbing or cyanosis. Neurologic: Cranial nerves grossly intact. No focal deficits identified. Psychiatric: Normal mood and affect. Awake, alert, and oriented x3. Skin: No new rashes or lesions identified. ASSESSMENT AND PLAN: 1. Dislodged jejunostomy tube with no obvious complication but creates a problem for nutrition. Surgery consulted, but reluctant to replace it currently. We will go ahead and start TPN, but this has proven not possible to continue at home in the past so we will have to try to see if we can get her to take sufficient p.o. or come up with some other option. 2. Chronic dysphagia, severe esophageal stricture, gastroparesis. The patient with chronic severe difficulties tolerating p.o. At best can tolerate some liquids. Patient on completely liquid diet indefinitely. Ideally we would transfer to her doctors at [facility], but they have proven unwilling to do this in the past. Nausea and vomiting improved somewhat on this go around. TPN as above for now, but we will try to work with her to try to get her p.o. intake good enough to go home and follow up with [facility]. She states that referral to Surgery for possible esophagectomy has been discussed, but the surgeon that her area operations manager at [facility] wanted to refer her to was out of town on vacation, so that referral is pending. 3. Acute kidney injury on chronic kidney disease stage 3. Slight bump in creatinine today, but improving overall. Baseline appears to be to approximately 1.4 to 1.6. Continue hydration at least 1 more day and monitor. 4. Hypokalemia. Pretty minimal at this point. Given elevation in creatinine, we will hold on repletion for the moment. 5. Hypophosphatemia. Again, we will hold on repletion for now, especially given that it was actually high on admission. Monitor. 6. THC use. Patient counseled on cessation as it could be contributing to her vomiting issues. 7. Hyponatremia, resolved with fluid resuscitation. 8. Low bicarbonate. The patient with fairly significantly low bicarbonate. Gap upper end of normal, so likely related to her kidney issues rather than lactic acidosis. We will check ABG to clarify. May end up having to give her some IV bicarbonate.
[2019-04-17] MEDS ORDERED: D10W 1,000 ML IV SCH (19:00)
[2019-04-17] MEDS ORDERED: POTASSIUM CHLORIDE IV SCH ×7 (20:00)
[2019-04-17] MEDS ORDERED: SODIUM PHOSPHATE IV SCH ×7 (20:00)
[2019-04-17] MEDS ORDERED: TPN ELECTROLYTES IV SCH ×7 (20:00)
[2019-04-17] MEDS ORDERED: [UNRECOGNIZED DRUG - OTHER] IV SCH ×7 (20:00)
[2019-04-17] MEDS: LIPOSYN 20% 250 ML IV SCH (21:19)
[2019-04-18] MEDS: POTASSIUM CHLORIDE 20 MEQ in D5W 1,000 ML IV SCH ×2 (02:03→03:44)
[2019-04-18 03:46] LABS: BE -12.7 mmoll (-3.0-3.0); BLOOD TYPE ARTERIAL; PCO2(98.6) 25 mmHg (35-45); PO2(98.6) 104 mmHg (60-100); SAMPLE BLOOD
[2019-04-18 03:47] LABS: ALLEN TEST YES; METHB 0.6 % (0.0-1.5); MODALITY ROOM AIR; O2(CT) 13.4 mL/dL (15.0-23.0); O2HB 97.6 % (95.0-99.0); SAO2 99.2 % (95.0-100.0); THB 9.6 g/dL (11.5-17.4)
[2019-04-18] MEDS: REGLAN IV SCH ×4 (04:45→23:27)
[2019-04-18] MEDS: PHENERGAN IV PRN ×4 (05:26→19:32)
[2019-04-18 08:53] LABS: BASO# 0.01 X1000 (0.0-0.2); BASO% 0.2 % (0.0-0.8); EOS# 0.09 X1000 (0.0-0.7); EOS% 1.4 % (0.0-10.0); HEMOGLOBIN 11.3 g/dL (12.0-16.0); LYMPH# 1.32 X1000 (1.2-3.4); MCH 27.8 PG (27-31); MCHC 34.2 g/dL (33-37); MCV 81.1 FL (81-99); MONO# 0.44 X1000 (0.11-0.59); MPV 12.6 FL (7.4-10.4); NEUT# 4.44 X1000 (1.4-6.5); NEUT% 70.4 % (42.2-75.2); PLT 212 X1000 (130-400); RBC 4.07 XMIL (4.2-5.4); RDW 17.5 % (11.5-14.5)
[2019-04-18 09:14] LABS: MAGNESIUM 1.9 mg/dL (1.5-2.7); PHOSPHORUS 1.7 mg/dL (2.7-4.5)
[2019-04-18 09:48] LABS: ALBUMIN 3.1 g/dL (3.5-5.0); CALCIUM 8.4 mg/dL (8.8-10.2); CREATININE 1.6 mg/dL (0.5-0.9); POTASSIUM 4.1 mmol/L (3.5-5.1)
[2019-04-18 09:49] LABS: PREALBUMIN 13.4 mg/dL (20-40)
[2019-04-18] MEDS: NEXIUM IV SCH (09:59)
[2019-04-18] MEDS: SODIUM CHLORIDE 0.9% INJ SCH (09:59)
[2019-04-18] MEDS: SODIUM BICARBONATE 8.4% 100 MEQ in D5W 1,000 ML IV SCH (15:04)
--- NOTE | 2019-04-18 18:44 | PROGRESS NOTE ---
DATE: 04/18/2019 INTERVAL HISTORY: Patient with some intermittent abdominal pain and bloating, but tolerating some limited liquids. Not really any new complaints. No acute events overnight. REVIEW OF SYSTEMS: Twelve-point review of systems negative except as per interval history. LABORATORY DATA: WBC 6.3, hemoglobin 11.3, hematocrit 33.0, platelets 212,000. ABG with pH 7.3, pCO2 of 25, PO2 of 104 on room air. Sodium 138, potassium 4.1, chloride 113, bicarbonate 12, BUN 9, creatinine 1.6, glucose 171, calcium 8.4, phosphorus 1.7. VITAL SIGNS: T-max 98.7 degrees, pulse 97, respirations 15, blood pressure 130/90, O2 saturation 100% on room air. OBJECTIVE: General: No acute distress. Chronically ill appearing. Vital signs as above. HEENT: Normocephalic, atraumatic. Moist mucous membranes. No cervical adenopathy. Cardiovascular: Regular rate and rhythm. No murmurs noted. Right-sided right upper chest port in place. Pulmonary: Clear to auscultation bilaterally. No wheezing, rales or rhonchi. Abdomen soft, nontender, nondistended. Bowel sounds positive. Right upper quadrant gastric stimulator palpable. Left-sided jejunostomy wound without any significant drainage. Extremities: Peripheral pulses intact. No clubbing or cyanosis. Neurologic: Cranial nerves grossly intact. No focal deficits identified. Psychiatric: Normal mood and affect. Awake, alert and oriented x3. Skin: No new rashes or lesions identified. ASSESSMENT AND PLAN: 1. Dislodged jejunostomy tube with no obvious complication. Getting patient nutrition is proving to be problematic. Surgery was consulted and discussed the case with them today. The patient already had recent open jejunostomy placement. Will also likely need palliative esophagectomy in the near future. Surgery feels that a third open procedure may not be in the patient's best interest, especially given her poor nutritional status and long history of noncompliance. On Surgery recommendations, discussed the possibility of a gastrojejunostomy tube placement with Dr. Villavicencio at [facility] with Interventional Radiology. He reviewed the patient's most recent CT abdomen and felt that her anatomy was such that they would not be able to place that radiologically. We have started the patient on total parenteral nutrition, but we have to this point not been able to get insurance to pay for that at home. She is taking some limited liquid p.o. intake. If we can improve that, then may be able to stop total parenteral nutrition and let her go home, to follow up with her people at [facility], but it remains to be seen if that will be successful. 2. Chronic dysphagia, severe esophageal stricture, gastroparesis. Patient with chronic severe difficulties tolerating p.o. Last esophagogastroduodenoscopy in mid February showed stricture down to 4 mm. It was so tight that it was not really amenable to dilation here. Her severe gastroparesis also complicates the picture. She really needs to be evaluated for esophagectomy at [facility], but we have not been able to transfer her down there so far. If, as above, we can get her nutritional status settled then we will try to discharge her, to follow up with them. 3. Acute kidney injury on chronic kidney disease stage 3. Essentially resolved. Creatinine 1.6 today, which is at or near her baseline. 4. Hypokalemia, improved, status post repletion. Continue to monitor. 5. Metabolic acidosis. Arterial blood gas confirming acidosis. No gap. Lactate normal. Likely renal tubular acidosis related to her kidney dysfunction. We will change fluids to D5 bicarbonate for a day or so and monitor. 6. Hypophosphatemia. Still low, but improving slowly. Given kidney dysfunction, we will monitor for now and hold off on repletion. 7. Tetrahydrocannabinol use. The patient has been counseled on cessation, as it could be contributing to her vomiting issues. 8. Hyponatremia, resolved. 9. Medical noncompliance. The patient has been only intermittently compliant with dietary restrictions. She has had to have numerous food boluses removed in the past, although not on her last couple of admissions. On previous discharge, home health attempted to make appointments with her to start her tube feeds 3 different times, and she was always out of the house when the appointment came. Continues to use marijuana against medical advice. Prognosis poor under the best of circumstances, and her intermittent noncompliance complicates the picture further.
[2019-04-18] MEDS ORDERED: SODIUM PHOSPHATE IV SCH ×7 (20:00)
[2019-04-18] MEDS ORDERED: POTASSIUM CHLORIDE IV SCH ×7 (20:00)
[2019-04-18] MEDS ORDERED: TPN ELECTROLYTES IV SCH ×7 (20:00)
[2019-04-18] MEDS ORDERED: [UNRECOGNIZED DRUG - OTHER] IV SCH ×7 (20:00)
[2019-04-18] MEDS: LIPOSYN 20% 250 ML IV SCH (21:47)
[2019-04-19] MEDS: PHENERGAN IV PRN ×5 (02:54→23:04)
[2019-04-19] MEDS: SODIUM BICARBONATE 8.4% 100 MEQ in D5W 1,000 ML IV SCH ×3 (04:27→22:47)
[2019-04-19] MEDS: REGLAN IV SCH ×4 (04:30→23:04)
[2019-04-19 04:52] LABS: ALLEN TEST NO; BE -5.9 mmoll (-3.0-3.0); BLOOD TYPE ARTERIAL; HCO3-(ACT) 20.3 mmoll (20.0-26.0); METHB 1.5 % (0.0-1.5); O2(CT) 13.5 mL/dL (15.0-23.0); O2HB 95.9 % (95.0-99.0); PCO2(98.6) 27 mmHg (35-45); PO2(98.6) 92 mmHg (60-100); SAMPLE BLOOD; SAO2 98.3 % (95.0-100.0); THB 9.9 g/dL (11.5-17.4); pH(98.6) 7.42 (7.35-7.45)
[2019-04-19 04:53] LABS: MODALITY ROOM AIR
[2019-04-19 08:48] LABS: CALCIUM 8.4 mg/dL (8.8-10.2); CREATININE 1.5 mg/dL (0.5-0.9); MAGNESIUM 1.5 mg/dL (1.5-2.7); PHOSPHORUS 2.3 mg/dL (2.7-4.5); POTASSIUM 4.1 mmol/L (3.5-5.1)
[2019-04-19] MEDS: NEXIUM IV SCH (08:48)
[2019-04-19] MEDS ORDERED: VANCOMYCIN IV PER PHARMACY MISC SCH (16:45)
[2019-04-19] MEDS ORDERED: MAXIPIME 2 GM in NS 100 ML IV SCH ×2 (16:45→17:30)
[2019-04-19] MEDS: NORCO-7.5 PO PRN (17:24)
[2019-04-19] MEDS: TYLENOL PO PRN (17:26)
--- NOTE | 2019-04-19 17:46 | PROGRESS NOTE ---
DATE: 04/19/2019 INTERVAL HISTORY: Patient still with intermittent abdominal pain and bloating which is largely stable. She continues to tolerate limited liquids, mostly just fruit juice. Complains of some slightly increased swelling of her chronically enlarged parotid glands, but they are nonpainful. Denies cough, diarrhea, dysuria. Afebrile overnight and this morning, but this afternoon has had fevers up to 102.9 accompanied by tachycardia. CBC pending. Some concern for sepsis with treatment as below. REVIEW OF SYSTEMS: Twelve-point review of systems negative except as per interval history. LABS: ABG: pH of 7.42, pCO2 of 27, pO2 of 92. Sodium 136, potassium 4.1, bicarb 19, BUN 9, creatinine 1.5, glucose 159 to 214. VITALS: T-max 102.9, pulse 120, respirations 15, blood pressure 134/85 O2 saturation 100% on room air. PHYSICAL EXAMINATION: General: No acute distress. Chronically-ill appearing. Vitals: As above. HEENT: Normocephalic, atraumatic. Slight increase in apparent size of parotid glands, but they are not at all tender to palpation. Moist mucous membranes. Neck: No cervical adenopathy. Cardiovascular: Regular rate and rhythm at the time of my exam. No murmurs noted. Chest: Right-sided right upper chest port in place. Pulmonary: Clear to auscultation bilaterally. No wheezing, rales, or rhonchi. Abdomen: Soft, nontender, nondistended. Bowel sounds positive. Right upper quadrant gastric stimulator palpable, and also nontender. Left- sided jejunostomy wound without any significant drainage. Extremities: Peripheral pulses intact. No clubbing or cyanosis. Neurologic: Cranial nerves grossly intact. No focal deficits. Psychiatric: Essentially normal mood and affect. Awake, alert, and oriented x3. Skin: No new rashes or lesions identified. ASSESSMENT AND PLAN: 1. Dislodged jejunostomy tube. No obvious complication. Nutrition has been problematic. Surgical risks fairly high and likely not a good option, given she already had a recent open procedure and is likely to have another one for esophagectomy in the relatively near future. Discussed gastrojejunostomy tube placement with [facility] at [place] and that after review of her last CT, they felt this was not going to be possible because of her anatomy. Currently started on total parenteral nutrition, and there is some hope that we may be able to get insurance to approve this, given lack of other good options. Will continue to encourage p.o. intake if we can, but this is likely to be limited and frequently interrupted. 2. Sepsis with unclear source. Patient today has been starting to spike fevers and also tachycardia. Obtaining blood cultures, urine culture. We will start empiric antibiotics with vancomycin and cefepime pending further evaluation. Blood pressure remains good. The patient received a fair amount of fluid already from her bicarb drip, but we will increase that to 150 mL an hour to give her the rest of her required fluid. If initial workup is unrevealing, then we will consider CT chest, abdomen and pelvis. 3. Chronic dysphagia, severe esophageal stricture, gastroparesis. Patient with chronic severe difficulties with p.o. intake. Last esophagogastroduodenoscopy in mid-February showed stricture down to 4 mm. It was not really amenable to dilation. Severe gastroparesis also complicates the picture, as does her intermittent noncompliance. Likely needs to be evaluated for esophagectomy at [facility], which is a work in progress. 4. Acute kidney injury on chronic kidney disease 3. Essentially resolved. Creatinine 1.5 today, which is essentially baseline. 5. Hypokalemia, improved status post repletion. Continue to monitor. 6. Metabolic acidosis. With arterial blood gas confirming non-gap acidosis, likely renal tubular acidosis. Improving with bicarb, which we are increasing as above. As this resolves, will likely transition to normal saline tomorrow. 7. Hypophosphatemia. Continue to monitor and adjusting total parenteral nutrition. 8. Tetrahydrocannabinol use. Patient has been counseled on cessation. 9. Hyponatremia, resolved. 10. Severe protein calorie malnutrition, starting total parenteral nutrition as above, given she has had significant weight loss over the last several months.
--- NOTE | 2019-04-19 17:50 | Diag Imaging Result Doc PS360 ---
EXAM: CHEST-PORTABLE 04/19/2019 HISTORY: fever, cough TECHNIQUE: AP portable at 1704 COMMENT: There is a Port-A-Cath on the right with its tip in the superior vena cava. Compared to 02/23/2019 the left lower lobe opacities which were previously present are no longer present. The inspiration remains somewhat suboptimal. The heart size is at the upper limits of normal in size. IMPRESSION: Resolution of left lower lobe pneumonia. No evidence of acute disease. Electronically signed by Napoleon Bearden 04/19/2019 5:48 PM
[2019-04-19] MEDS ORDERED: VANCOMYCIN 1,300 MG in NS 250 ML IV ONE (18:00)
[2019-04-19 19:13] LABS: URINE SOURCE CLEAN CATCH
[2019-04-19 19:14] LABS: BILIRUBIN URINE NEGATIVE (NEGATIVE); BLOOD URINE TRACE (NEGATIVE); COLOR YELLOW; GLUCOSE URINE 300 mg/dL (NEGATIVE); KETONE URINE NEGATIVE (NEGATIVE); LEUKOCYTES URINE SMALL (NEGATIVE); NITRITE URINE NEGATIVE (NEGATIVE); PROTEIN URINE TRACE mg/dL (NEGATIVE); TURBIDITY URINE CLEAR (CLEAR); UROBILINOGEN URINE NORMAL (NORMAL)
[2019-04-19 19:15] LABS: UR EPITHELIAL CELLS <10 /HPF (<10); URINE BACTERIA NEGATIVE /HPF; URINE RBC <10 /HPF (<10); URINE WBC 20-40 /HPF (<10)
[2019-04-19] MEDS: LIPOSYN 20% 250 ML IV SCH ×2 (20:03→20:15)
[2019-04-19] MEDS: POTASSIUM CHLORIDE IV SCH ×9 (20:13)
[2019-04-19] MEDS: SODIUM PHOSPHATE IV SCH ×9 (20:13)
[2019-04-19] MEDS: TPN ELECTROLYTES IV SCH ×9 (20:13)
[2019-04-19] MEDS: [UNRECOGNIZED DRUG - OTHER] IV SCH ×9 (20:13)
[2019-04-20] MEDS: SODIUM BICARBONATE 8.4% 100 MEQ in D5W 1,000 ML IV SCH ×4 (00:23→21:40)
[2019-04-20] MEDS: TYLENOL PO PRN ×4 (00:40→23:48)
[2019-04-20] MEDS: PHENERGAN IV PRN ×5 (03:51→21:49)
[2019-04-20] MEDS: REGLAN IV SCH ×4 (05:55→22:36)
[2019-04-20 07:37] LABS: BASO# 0.02 X1000 (0.0-0.2); BASO% 0.2 % (0.0-0.8); EOS# 0.05 X1000 (0.0-0.7); EOS% 0.6 % (0.0-10.0); HEMATOCRIT 26.6 % (37.0-47.0); HEMOGLOBIN 9.1 g/dL (12.0-16.0); IMM GRAN# 0.04 X1000 (0.0-0.04); IMM GRAN% 0.5 % (0.0-0.5); LYMPH% 6.8 % (20.5-51.1); MCH 27.2 PG (27-31); MCHC 34.2 g/dL (33-37); MCV 79.6 FL (81-99); MONO# 0.63 X1000 (0.11-0.59); MONO% 7.1 % (1.7-9.3); NEUT# 7.49 X1000 (1.4-6.5); NEUT% 84.8 % (42.2-75.2); PLT 145 X1000 (130-400); RBC 3.34 XMIL (4.2-5.4); RDW 16.4 % (11.5-14.5); WBC 8.83 X1000 (4.8-10.8)
[2019-04-20 07:49] LABS: ALB/GLOB RATIO 1.1; ALBUMIN 2.2 g/dL (3.5-5.0); DIRECT BILIRUBIN 0.2 mg/dL (0.00-0.20); TOTAL BILIRUBIN 0.38 mg/dL (0.20-1.00); TOTAL PROTEIN 4.2 g/dL (6.3-8.3)
[2019-04-20 07:50] LABS: CREATININE 1.3 mg/dL (0.5-0.9); MAGNESIUM 1.3 mg/dL (1.5-2.7); PHOSPHORUS 2.4 mg/dL (2.7-4.5); POTASSIUM 3.4 mmol/L (3.5-5.1)
[2019-04-20 08:01] LABS: CALCIUM 7.2 mg/dL (8.8-10.2)
--- NOTE | 2019-04-20 08:47 | Diag Imaging Result Doc PS360 ---
EXAM: CT THORAX/ABD/PELVIS W/O CON 04/20/2019 HISTORY: fever of unknown origin TECHNIQUE: This exam was performed using automated exposure control, adjustment of mA or kV according to patient size, and/or use of iterative reconstruction technique. COMMENT: Thorax: The current study is compared with the previous examination of 07/24/2016. There are small bilateral pleural effusions. There is a hiatal hernia. There is a small pericardial effusion measuring 6 mm posteriorly. This is slightly worse than on the previous abdominal study of 04/15/2019. There are patchy emphysematous changes in the right upper lobe, unchanged since 07/24/2016. There is a nonspecific pulmonary nodule posteriorly in the left upper lobe on image 26, which was not present on the previous study of 2015, and ill-defined and platelike opacities are present in both lower lobes, the inferior lingula and the inferior right middle lobe, which are slightly worse than on the previous study, which may indicate atelectasis or pneumonia. The regional skeleton is intact. ABDOMEN: The current study is compared with the previous examination of 04/15/2019. There is no evidence of nephrolithiasis or hydronephrosis. There has been cholecystectomy. The spleen and adrenal glands do not appear to be enlarged. Evaluation of the solid organs is suboptimal due to the lack of contrast. There is considerable beam hardening artifact and some motion artifact. There is fluid in the colon, which has increased in volume since the previous examination of 04/15/2019. There is no evidence of mucosal thickening. There is no evidence of bowel obstruction. There is gas and stool debris in the rectum. There is perinephric stranding bilaterally which was not the case previously. The urinary bladder is slightly distended. There is mild anasarca which was not apparent at the time the previous study. There is an IUD which is stable in location. The regional skeleton is stable in appearance. The gastric pacemaker in the right anterior subcutaneous fat is again noted. IMPRESSION: 1. Worsened atelectasis versus pneumonia. New left upper lobe nodule. 2. Bilateral perinephric stranding. The possibility of pyelonephritis cannot be excluded given the lack of contrast. 3. Fluid throughout the colon which may indicate enterocolitis. Anasarca. Electronically signed by Napoleon Bearden 04/20/2019 8:44 AM
[2019-04-20] MEDS ORDERED: MAGNESIUM SULFATE 2 GM/S.W.I. 2 GM/50 ML IVPB IV ONE (09:23)
[2019-04-20] MEDS: PROTONIX IV SCH (10:32)
[2019-04-20] MEDS: MERREM 1 GM in NS 50 ML IV SCH ×2 (10:41→21:48)
[2019-04-20] MEDS: POTASSIUM CHLORIDE 20 MEQ/SWI 20 MEQ/100 ML IVPB IV SCH ×2 (10:42→14:48)
[2019-04-20] MEDS: HUMALOG SUBQ SCH ×3 (11:31→21:38)
[2019-04-20] MEDS: NORCO-7.5 PO PRN ×2 (11:40→23:47)
[2019-04-20] MEDS: FLAGYL 500 MG/NS 500 MG/100 ML IVPB IV SCH ×3 (14:48→22:36)
--- NOTE | 2019-04-20 16:02 | PROGRESS NOTE ---
DATE: 04/20/2019 SUBJECTIVE: The patient is still with a number of low-grade fevers overnight. Continues to deny Abdominal pain, fullness and intermittent nausea. Blood cultures now positive for gram-positive cocci. No other acute events. REVIEW OF SYSTEMS: Twelve-point review of systems negative, except as per interval history. WBC 8.8, hemoglobin 9.1, hematocrit 26.6, platelets 145. Sodium 132, potassium 3.4, bicarbonate 24, BUN 15, creatinine 1.3, glucose 313 to 377. Urinalysis with trace blood, small leukocytes, 20-40 WBCs, negative RBCs, negative epithelial cells, negative bacteria. IMAGING: Chest x-ray with resolution of previous left lower lobe pneumonia. No acute process. CT chest, abdomen and pelvis with worsened atelectasis versus pneumonia in both lower lobes, inferior lingula and inferior right middle lobe, bilateral perinephric stranding with the possibility of pyelonephritis, and fluid throughout the colon which could indicate enterocolitis. VITALS: T-max 102.9, pulse 110, respirations 18, blood pressure 109/75, O2 saturation 100% on room air. PHYSICAL EXAM: General: No acute distress, chronically ill appearing. Vitals: As above. HEENT: Normocephalic, atraumatic. Neck: Parotid gland stable and remained nontender. Moist mucous membranes. No cervical adenopathy. Cardiovascular: Slightly tachycardic, but regular. No murmurs noted. Chest: Right-sided chest port in place. No surrounding erythema, fluctuance or other clear sign of infection. Pulmonary: Clear to auscultation bilaterally. No wheezing, rales or rhonchi. Abdomen: Soft, essentially nontender and nondistended. Bowel sounds positive. Right upper quadrant gastric stimulator palpable and also nontender. No suprapubic tenderness. Left-sided jejunostomy wound without any significant drainage still. Extremities: Peripheral pulses intact. No clubbing or cyanosis. Neurologic: Cranial nerves grossly intact. No focal deficits. Psychiatric: Essentially normal mood and affect. Awake, alert and oriented x3. Skin: Still no new rashes or lesions. ASSESSMENT AND PLAN: 1. Dislodged jejunostomy tube. No obvious complication. Started on total parenteral nutrition, which we will hopefully be able to continue as an outpatient. Continue to encourage oral intake. 2. Sepsis, still with unclear source. Patient with fevers. Yesterday put on empiric antibiotics with vancomycin and cefepime. Urine studies largely unremarkable. Culture pending. Blood cultures obtained and preliminarily positive for gram-positive cocci, which raises concern for infection of her port. However, CT also showing possible pneumonia, possible pyelonephritis, and possible enteric colitis. Given ongoing fevers and lack of certainty about the source, antibiotics changed to vancomycin, Merrem and Flagyl. Consulting Infectious Disease for their thoughts. Repeat blood cultures tomorrow. 3. Chronic dysphagia, severe esophageal stricture, gastroparesis. Patient with severe swallowing difficulties. Last esophagogastroduodenoscopy showed stricture down to 4 mm. It was not amenable to dilation at that time. Also with severe gastroparesis that does not help. Needs to be evaluated for esophagectomy at [facility], which we can hopefully get her to once above infectious issues are resolved. 4. Hypokalemia. Low again today. Will further replete and monitor. 5. Metabolic acidosis. Arterial blood gas confirming non gap acidosis, likely renal tubular acidosis, improving rapidly with bicarbonate. Beginning to approach normal. We will go ahead and continue that 1 more day. 6. Acute kidney injury on chronic kidney disease III. Essentially resolved. 7. Hypophosphatemia. Continue to monitor and adjust total parenteral nutrition. 8. THC use. Patient has been counseled on cessation. 9. Hyponatremia, a little low today, but pretty mild. We will hold off on adjustments for now, but may have to adjust intravenous fluid tomorrow. 10. Hypomagnesemia. Will replete and monitor. 11. Severe protein calorie malnutrition. Total parenteral nutrition as above. Likely needs esophagectomy and subsequently replace repeat feeding tube at some point.
[2019-04-20] MEDS: SODIUM PHOSPHATE IV SCH ×9 (21:37)
[2019-04-20] MEDS: POTASSIUM CHLORIDE IV SCH ×9 (21:37)
[2019-04-20] MEDS: TPN ELECTROLYTES IV SCH ×9 (21:37)
[2019-04-20] MEDS: [UNRECOGNIZED DRUG - OTHER] IV SCH ×9 (21:37)
[2019-04-20] MEDS: LIPOSYN 20% 250 ML IV SCH (21:38)
[2019-04-21] MEDS: PHENERGAN IV PRN ×4 (03:11→19:08)
[2019-04-21] MEDS: FLAGYL 500 MG/NS 500 MG/100 ML IVPB IV SCH (05:10)
[2019-04-21] MEDS: REGLAN IV SCH (05:10)
[2019-04-21] MEDS ORDERED: VANCOMYCIN 1 GM/NS 1 GM/250 ML IVPB IV SCH (06:00)
[2019-04-21] MEDS: SODIUM BICARBONATE 8.4% 100 MEQ in D5W 1,000 ML IV SCH ×2 (06:12→12:00)
[2019-04-21] MEDS: HUMALOG SUBQ SCH ×4 (06:13→21:09)
[2019-04-21 08:11] LABS: BASO# 0.02 X1000 (0.0-0.2); BASO% 0.2 % (0.0-0.8); EOS# 0.09 X1000 (0.0-0.7); EOS% 1.1 % (0.0-10.0); HEMATOCRIT 27.4 % (37.0-47.0); HEMOGLOBIN 9.3 g/dL (12.0-16.0); IMM GRAN# 0.02 X1000 (0.0-0.04); IMM GRAN% 0.2 % (0.0-0.5); LYMPH# 0.67 X1000 (1.2-3.4); LYMPH% 8.1 % (20.5-51.1); MCH 27.3 PG (27-31); MCHC 33.9 g/dL (33-37); MCV 80.4 FL (81-99); MONO# 0.61 X1000 (0.11-0.59); MONO% 7.4 % (1.7-9.3); NEUT# 6.82 X1000 (1.4-6.5); PLT 135 X1000 (130-400); RBC 3.41 XMIL (4.2-5.4); RDW 16.5 % (11.5-14.5); WBC 8.23 X1000 (4.8-10.8)
[2019-04-21 08:18] LABS: CALCIUM 7.5 mg/dL (8.8-10.2); CREATININE 1.3 mg/dL (0.5-0.9); MAGNESIUM 1.7 mg/dL (1.5-2.7); PHOSPHORUS 2.1 mg/dL (2.7-4.5); POTASSIUM 3.4 mmol/L (3.5-5.1)
[2019-04-21] MEDS: MERREM 1 GM in NS 50 ML IV SCH ×2 (08:51→17:19)
[2019-04-21] MEDS: PROTONIX IV SCH (08:51)
[2019-04-21] MEDS: NORCO-7.5 PO PRN (08:52)
[2019-04-21] MEDS: SODIUM CHLORIDE 0.9% INJ PRN ×2 (08:52→19:08)
[2019-04-21] MEDS: TYLENOL PO PRN ×2 (08:52→16:48)
[2019-04-21] MEDS: MYCOSTATIN SUSP PO SCH ×3 (12:21→21:46)
[2019-04-21] MEDS: ZYVOX 600 MG/D5W 600 MG/300 ML IVPB IV SCH ×2 (12:21→23:16)
--- NOTE | 2019-04-21 13:46 | INFECTIOUS DISEASE CONSULT REP ---
DATE: 04/21/2019 ADDENDUM REPORT The microbiology laboratory just called to notify us that the patient has yeast in her blood. This almost certainly originates from her Port-A-Cath. I discussed with the patient that to clear her bloodstream of the yeast, her Port-A-Cath will need to be removed. I put in a consult for Dr. Rutherford to remove the Port-A-Cath tomorrow. I called the pharmacy to tell them that the patient is going to have her Port-A-Cath removed tomorrow and she would not be able to get TPN because we will be using a peripheral IV for a few days at least. I have ordered for the patient to get micafungin, and 1 or 2 days from now, I will repeat her blood cultures. If they are negative, then another Port-A-Cath can be put in. cc: Emilio Wilkinson MD
[2019-04-21 14:33] LABS: INR 1.23; PROTIME 15.7 Seconds (11.0-16.0)
[2019-04-21 14:34] LABS: PTT 44.2 Seconds (22.3-41.8)
[2019-04-21] MEDS: PERCOCET-10 PO PRN ×2 (14:57→19:08)
[2019-04-21] MEDS: MYCAMINE 100 MG in NS 100 ML IV SCH (14:58)
--- NOTE | 2019-04-21 15:48 | PROGRESS NOTE ---
DATE: 04/21/2019 INTERVAL HISTORY: The patient with ongoing fevers. Her only complaint remains abdominal pain which is largely stable. Discussed with Infectious Disease and initially not entirely sure what the source for infection was. Blood cultures initially positive gram-positive cocci but ended up being coag-negative staphylococcus which would favored to be a contaminant. Later, blood cultures also became positive for yeast, however, which may be a source. No other acute events. REVIEW OF SYSTEMS: Twelve-point review of systems negative except as per interval history. LABS: WBC 8.23, hemoglobin 9.33, hematocrit 27.4, platelets 135,000. INR 1.23. Sodium 133, potassium 3.4, BUN 15, creatinine 1.3, glucose 211 to 314. Troponin negative. Lactate negative. OBJECTIVE: Vital Signs: T-max 102.8 degrees, pulse 106, respirations 17, blood pressure 108/67. O2 saturations 93% on room air. General: No acute distress. Chronically ill appearing. HEENT: Normocephalic, atraumatic. Moist mucous membranes. Parotid gland enlargement stable, and they remain nontender. Cardiovascular: Remains tachycardic but regular. No murmurs noted. Right- sided chest port in place. Still no obvious sign of infection. Pulmonary: Clear to auscultation bilaterally. No wheezing, rales, or rhonchi. Abdomen: Soft. Minimal diffuse tenderness without rebound or guarding. Bowel sounds positive. Right upper quadrant gastric stimulator palpable and remains nontender. Left digit ostomy wound healing without any significant drainage. Extremities: Peripheral pulses intact. No clubbing or cyanosis. Neurologic: Cranial nerves grossly intact. No focal deficits. Psychiatric: Essentially normal mood and affect. Awake, alert, and oriented x3. Skin: Still no new rashes or lesions identified. ASSESSMENT AND PLAN: 1. Sepsis, fungemia, infected port. The patient with fevers several days after admission. Put on empiric antibiotics with vancomycin and cefepime initially. Remains febrile and initial studies unrevealing, so cefepime changed to Merrem and Flagyl added. CT obtained which showed questionable pneumonia. Questionable pyelo and questionable colitis. Patient without any significant respiratory or increase in GI symptoms. Source remains unclear until blood cultures returned with yeast. Suspect port-related fungemia. Dr. Wilkinson with infectious disease on board and assisting. Likely surgical removal of the port tomorrow. Will have to go without a central line for few days until blood cultures clear, and then may be able to get a port back in. Continue antibiotics as directed by Infectious Disease. 2. Dislodged jejunostomy tube. No obvious complication. Started on TPN, but this will have to be put on hold while she has no central access. 3. Chronic dysphagia, severe esophageal stricture, gastroparesis. Patient with severe swallowing difficulty. Last EGD showing stricture down to 4 mm. Also with severe gastroparesis contributing. Still needs to be evaluated for esophagectomy at [facility]. Hopefully can arrange that once above issues resolved. 4. Hypokalemia, again low. Will continue repleting and monitor. 5. Metabolic acidosis. ABG confirming non-gap acidosis, likely renal tubular acidosis. Improved rapidly with bicarb and essentially resolved at this point. We will change fluids to normal saline. She does not appear to need the bicarb any longer. 6. Acute kidney injury on chronic kidney disease 3, essentially resolved. 7. THC use. Patient has been counseled on cessation. 8. Hyponatremia. Minimal and stable. Monitor, but no need for acute intervention. 9. Hypomagnesemia, improved with repletion. Monitor. 10. Severe protein-calorie malnutrition. TPN as above. Will likely need to place a feeding tube at some point but not sure when that is going to happen. We will continue to encourage liquid p.o. intake as possible.
--- NOTE | 2019-04-21 16:06 | GENERAL SURGERY PROGRESS NOTE ---
DATE: 04/21/2019 Dr. Wilkinson called me and said that Ms. Bobby' blood cultures is growing fungus and he has asked that we remove the port. I have discussed that with her. She understands and agrees. I will speak with Dr. Mobley about removing it tomorrow and either or myself will get the port out. cc: Isaiah Rutherford MD
[2019-04-21] MEDS: POTASSIUM CHLORIDE 20 MEQ/SWI 20 MEQ/100 ML IVPB IV SCH ×2 (16:46→21:46)
[2019-04-21] MEDS: NS 1,000 ML IV SCH (16:46)
[2019-04-21] MEDS ORDERED: LIPOSYN 20% 500 ML IV SCH (21:00)
[2019-04-21] MEDS: SODIUM PHOSPHATE IV SCH ×9 (21:47)
[2019-04-21] MEDS: TPN ELECTROLYTES IV SCH ×9 (21:47)
[2019-04-21] MEDS: POTASSIUM CHLORIDE IV SCH ×9 (21:47)
[2019-04-21] MEDS: [UNRECOGNIZED DRUG - OTHER] IV SCH ×9 (21:47)
[2019-04-22] MEDS: PHENERGAN IV PRN ×3 (01:01→16:12)
[2019-04-22] MEDS: MERREM 1 GM in NS 50 ML IV SCH ×2 (02:07→09:03)
[2019-04-22] MEDS: NS 1,000 ML IV SCH (05:35)
[2019-04-22] MEDS: HUMALOG SUBQ SCH ×4 (06:12→22:25)
[2019-04-22 07:11] LABS: HEMATOCRIT 24.7 % (37.0-47.0); HEMOGLOBIN 8.5 g/dL (12.0-16.0); MCHC 34.4 g/dL (33-37); MCV 81.3 FL (81-99); RBC 3.04 XMIL (4.2-5.4); RDW 16.4 % (11.5-14.5); WBC 7.16 X1000 (4.8-10.8)
[2019-04-22 07:12] LABS: BASO# 0.02 X1000 (0.0-0.2); BASO% 0.3 % (0.0-0.8); EOS# 0.09 X1000 (0.0-0.7); EOS% 1.3 % (0.0-10.0); LYMPH# 0.67 X1000 (1.2-3.4); LYMPH% 9.4 % (20.5-51.1); MONO# 0.65 X1000 (0.11-0.59); MONO% 9.1 % (1.7-9.3); NEUT# 5.73 X1000 (1.4-6.5); NEUT% 79.9 % (42.2-75.2); PLT 108 X1000 (130-400)
[2019-04-22 07:23] LABS: BANDS 6 % (0-1); EOS 4 % (1-10); LYMPHS 8 % (21-51); MONO 4 % (1-9); SEGS 78 % (42-75)
[2019-04-22 07:24] LABS: LARGE PLATELETS 1+
[2019-04-22 07:59] LABS: CALCIUM 7.5 mg/dL (8.8-10.2); CREATININE 1.7 mg/dL (0.5-0.9); MAGNESIUM 1.6 mg/dL (1.5-2.7); PHOSPHORUS 2.2 mg/dL (2.7-4.5); POTASSIUM 3.8 mmol/L (3.5-5.1)
[2019-04-22] MEDS: MORPHINE IV PRN ×2 (08:28→12:50)
[2019-04-22] MEDS ORDERED: XYLOCAINE 1%/EPI 1:100,000 ONE (08:30)
[2019-04-22] MEDS ORDERED: FENTANYL ONE (08:34)
[2019-04-22] MEDS ORDERED: DIPRIVAN 1% ONE (08:35)
[2019-04-22] MEDS ORDERED: VERSED ONE (09:07)
[2019-04-22] MEDS ORDERED: XYLOCAINE-MPF 2% ONE (09:30)
[2019-04-22] MEDS ORDERED: ZOFRAN ONE (09:30)
[2019-04-22] MEDS: MYCOSTATIN SUSP PO SCH ×4 (10:30→22:31)
[2019-04-22] MEDS: ZYVOX 600 MG/D5W 600 MG/300 ML IVPB IV SCH (11:10)
--- NOTE | 2019-04-22 11:17 | OPERATIVE NOTE ---
PROCEDURE DATE: 04/22/2019 PREOPERATIVE DIAGNOSES: 1. Fungemia. 2. Probable xrqy-v-[id number] infection. POSTOPERATIVE DIAGNOSES: 1. Fungemia. 2. Probable ezrc-z-ogusbqux infection. PROCEDURE: Excision of [id number]. SURGEON: Samm Mobley MD [employer] DEVELOPER: Sharon Carballo MS3 ANESTHESIA: General. ESTIMATED BLOOD LOSS: 1 mL. COMPLICATIONS: None apparent. SPECIMENS: [id number]. FINDINGS: There was no gross pus. TECHNIQUE: The patient was brought to the operating room and placed supine on the table. General anesthesia was induced. She was prepped and draped in usual sterile fashion. Then 1% lidocaine with epinephrine was used to anesthetize our incision. Her previous port incision of the right chest was opened sharply with a knife. This was carried down through the subcutaneous tissue to the port with cautery. The port was excised from its subcutaneous attachments with cautery. The catheter and port were removed in 1 piece. The catheter track was closed with a ovberz-av-zheht subcutaneous 3-0 Polysorb. The dermis was reapproximated with interrupted subcutaneous 3-0 Polysorb. The skin was closed with a running 4-0 subcuticular Monocryl and Steri-Strips. There were no apparent complications. She was awakened in stable condition and transferred to the recovery room. cc: Samm Mobley MD
[2019-04-22] MEDS: TYLENOL PO PRN (11:36)
[2019-04-22] MEDS: PROTONIX IV SCH (11:40)
[2019-04-22] MEDS: MYCAMINE 100 MG in NS 100 ML IV SCH (15:08)
--- NOTE | 2019-04-22 15:37 | PROGRESS NOTE ---
DATE: 04/22/2019 INTERVAL HISTORY: Patient still with some fevers although they look like they may be trending down. Status post port removal this morning by Dr. Mobley. Doing well postop. Some ongoing abdominal pain but otherwise no new complaints. No other acute events overnight. REVIEW OF SYSTEMS: Twelve point review of systems negative except as per interval history. LABS: WBC 7.1, hemoglobin 8.5, hematocrit 24.7, platelets 108,000. Sodium 133, potassium 3.8, BUN 17, creatinine 1.7, glucose 150 to 192 . VITALS: T-max 102.2 last night, T-max this morning 100.8, pulse 109, respirations 18, blood pressure 117/82, O2 saturation 100% on 2 L by nasal cannula. PHYSICAL EXAMINATION: General: No acute distress. Chronically ill appearing. HEENT: Normocephalic, atraumatic. Moist mucous membranes. Parotid gland enlargement stable, glands remain nontender. Cardiovascular: Tachycardic but regular, no murmurs noted. Site of previous right-sided chest port bandaged, bandaging clean, dry intact. Pulmonary: Clear to auscultation bilaterally. No wheezing, rales, or rhonchi. Abdomen: Soft. Minimal diffuse tenderness without rebound or guarding essentially unchanged. Bowel sounds positive. Right upper quadrant gastric stimulator remains nontender. Extremities: Peripheral pulses intact. No clubbing or cyanosis. Neurologic: Cranial nerves grossly intact. No focal deficits. Mild global weakness. Psychiatric: Normal mood and affect. Awake, alert, oriented x3. Skin: No new rashes or lesions identified. ASSESSMENT AND PLAN: 1. Sepsis, fungemia, infected port. Patient with fever several days after admission. Put on vanc and cefepime initially. Initial workup unremarkable. Fevers continue to cefepime changed to Merrem and Flagyl was added. CT obtained showing questionable pneumonia which she remains on treatment for, also questionable pyelo and highly questionable colitis. The patient was not having any diarrhea or vomiting. No cough or dyspnea. Fevers continued and source remained somewhat debatable until blood cultures returned with yeast. Suspect port and total parenteral nutrition related fungemia. Dr. Wilkinson on board and assisting. Port now removed surgically. Plan is for her to have a line holiday until blood cultures remain clear. They may be able to get a new port. Continue antibiotics as directed by Infectious Disease. 2. Dislodged jejunostomy tube. No obvious complication. Started on total parenteral nutrition but will have to private branch exchange service advisor to [employer] for now while she has no central access. 3. Chronic dysphagia, severe esophageal stricture, gastroparesis. Last EGD showing stricture down to 4 mm. Patient with severe gastroparesis and chronic issues with dysphagia. Will eventually need to be evaluated for esophagectomy at [facility]. Will continue to encourage liquid p.o. intake as we can. 4. Hypokalemia improved with repletion, monitor. 5. Metabolic renal tubular acidosis. Patient few days ago found a metabolic acidosis ABG confirming non gap acidosis favored to represent renal tubular acidosis. Improved with bicarb and now essentially resolved, fluids changed to normal saline. 6. Acute kidney injury on chronic kidney disease 3 resolved up to this point did have bump in creatinine today. Fluids changed to normal saline as above, will continue to monitor. 7. THC use. Patient has been counseled on cessation. 8. Hyponatremia mild, stable. Monitor but no intervention at this time. 9. Hypomagnesemia improved with repletion, monitor. 10. Severe protein calorie malnutrition. Was on total parenteral nutrition as above, Clinimix for now but will have to encourage p.o. intake until that can be restarted. [facility]
[2019-04-22] MEDS: CLINIMIX E 4.25%-5% SOLUTION 1,000 ML IV SCH (15:48)
[2019-04-22] MEDS: SODIUM CHLORIDE 0.9% INJ PRN (16:12)
--- NOTE | 2019-04-22 16:40 | INFECTIOUS DISEASE PROGRESS NO ---
DATE: 04/22/2019 PRESENT ILLNESS: The patient has a fungemia which I think originated from her Port-A-Cath which has been removed today. MEDICATIONS: The patient is on micafungin. Also she had been getting meropenem and Zyvox. PHYSICAL EXAMINATION: Vital Signs: Temperature is 100.5, pulse 109, respirations 18, blood pressure 117/82. General: This is a somewhat ill-appearing, middle-aged female. She is in no acute distress. Head, eyes, ears, nose, and throat: She can hear my spoken words and see near objects. She does have some white coating on her tongue. Neck: No meningismus. Thorax: The patient had her right Port-A-Cath removed today at surgery. There is a very small incision and there is no swelling in that area and the incision is intact. Lungs: Clear to auscultation. Cardiovascular: Heart rate is regular. Abdomen: Soft and nontender. Neurologic: The patient is alert. She can move her extremities. There is no tremor. LAB AND X-RAY: The CBC for today shows a white count of 7160, hemoglobin 8.5, platelet count 108,000. Creatinine is 1.7. GFR is 39. Blood cultures are growing yeast. ASSESSMENT AND PLAN: The patient has fungemia which I think originates from her Port-A-Cath. The Port-A-Cath has been removed and the patient is on micafungin. The patient also has oral candidiasis and that already has been started. Yesterday before the news of the patient's positive blood culture for yeast was present, the patient was on Zyvox and meropenem for possible pneumonia and urinary tract infection. I do not think that she has either one and I am discontinuing the Zyvox and meropenem and will continue with micafungin and nystatin. Tomorrow I am going to get repeat blood cultures and if they become negative, then the patient will be able to have another Port-A-Cath put in. COMORBIDITY: The patient is a diabetic. cc: Emilio Wilkinson MD
[2019-04-22] MEDS: PERCOCET-10 PO PRN (18:28)
[2019-04-22] MEDS ORDERED: ZOFRAN ODT PO PRN (21:52)
[2019-04-23] MEDS: HUMALOG SUBQ SCH ×4 (06:05→21:42)
[2019-04-23 07:33] LABS: CALCIUM 7.8 mg/dL (8.8-10.2); CREATININE 1.7 mg/dL (0.5-0.9); MAGNESIUM 1.6 mg/dL (1.5-2.7); POTASSIUM 3.8 mmol/L (3.5-5.1); PREALBUMIN 8.3 mg/dL (20-40)
[2019-04-23] MEDS: MYCOSTATIN SUSP PO SCH ×4 (09:01→21:42)
[2019-04-23] MEDS: PERCOCET-10 PO PRN ×3 (09:02→21:42)
[2019-04-23] MEDS: PROTONIX IV SCH (09:03)
--- NOTE | 2019-04-23 11:25 | PROGRESS NOTE ---
DATE: 04/23/2019 INTERVAL HISTORY: No acute event overnight. She did have an episode of fever yesterday night. Yesterday morning time, her chest port was removed. She states she has been drinking clear liquids and wants me to advance her diet to full liquids. Currently, she is denying any chest pain or shortness of breath. We discussed about her bilateral parotitis. We also discussed about the need for regular followup. She states that she has scheduled appointment with her [place] primary care doctor next month from where she is going to be referred to [facility]. VITALS: Currently, temperature 98.2 degrees, pulse 103, respiratory rate 16, blood pressure 110/79, saturating 100% on 2 L nasal cannula. PHYSICAL EXAMINATION: Cachectic. She appears more pleasant today than on the previous encounter. Oral Cavity: I could not see any oral thrush today. Lungs: Air entry, she does have inspiratory crackles, left supramammary region, and she states she is coughing more than usual. She was previously on intravenous antibiotics though. S1, S2 normal. Tachycardic. No murmur, rub, or gallop. Abdomen: Soft. Generalized tenderness. No lower extremity edema. LABS: No CBC today. BMP suggestive of chronic kidney disease stage 3. ASSESSMENT AND PLAN: 1. Sepsis from fungemia from infected port, status post removal on 04/22/2019. Continue intravenous micafungin as per infectious disease recommendation. She does have right lower quadrant gastric pacemaker. She would need outpatient ophthalmology evaluation. She denies any visual disturbance at the moment. 2. Dislodged jejunostomy tube without complication. Continue intravenous Clinimix for nutrition and oral clear liquid diet to supplement that. She may need outpatient surgery evaluation once her acute issues are resolved for replacement of a jejunostomy tube. However, previously there have been issues with her medical compliance. 3. Chronic dysphagia, multiple esophageal strictures requiring multiple dilatations, gastroparesis due to prior history of diabetes mellitus requiring gastric pacemaker. Continue clear liquid diet. She needs to follow up with [facility] for esophagectomy as an outpatient. Continue liquid diet. 4. Her chronic kidney disease stage 3 is stable; hypokalemia has resolved; renal tubular acidosis and acute kidney injury on chronic kidney disease stage 3 have resolved. 5. Disposition. I will continue to monitor the patient inside the hospital as I await negative blood cultures. Plan of care discussed with her. All of her questions have been answered. cc: Clay Still MD
[2019-04-23] MEDS: PHENERGAN IV PRN ×2 (15:23→21:50)
[2019-04-23] MEDS: MYCAMINE 100 MG in NS 100 ML IV SCH (15:25)
[2019-04-23] MEDS: NS 1,000 ML IV SCH (15:43)
[2019-04-23] MEDS: CLINIMIX E 4.25%-5% SOLUTION 1,000 ML IV SCH (17:39)
[2019-04-24] MEDS: PERCOCET-10 PO PRN ×4 (03:14→23:00)
[2019-04-24] MEDS: PHENERGAN IV PRN ×4 (03:14→23:01)
[2019-04-24] MEDS: HUMALOG SUBQ SCH ×4 (06:02→20:42)
[2019-04-24] MEDS: CLINIMIX E 4.25%-5% SOLUTION 1,000 ML IV SCH (10:21)
[2019-04-24] MEDS: PROTONIX IV SCH (10:24)
[2019-04-24] MEDS: MYCOSTATIN SUSP PO SCH ×4 (10:24→20:46)
[2019-04-24] MEDS: SODIUM CHLORIDE 0.9% INJ PRN (10:24)
[2019-04-24 11:14] LABS: CALCIUM 7.7 mg/dL (8.8-10.2); CREATININE 1.5 mg/dL (0.5-0.9); MAGNESIUM 1.7 mg/dL (1.5-2.7); PHOSPHORUS 3.5 mg/dL (2.7-4.5); POTASSIUM 3.6 mmol/L (3.5-5.1)
[2019-04-24] MEDS: NS 1,000 ML IV SCH (12:35)
[2019-04-24] MEDS: MYCAMINE 100 MG in NS 100 ML IV SCH (12:37)
--- NOTE | 2019-04-24 15:23 | INFECTIOUS DISEASE PROGRESS NO ---
DATE: 04/24/2019 PRESENT ILLNESS: Ms. Bobby has a Viky albicans fungemia which we think originated from her Port-A-Cath, which has been removed. She also has an oral candidiasis which has improved. MEDICATIONS: She is receiving IV micafungin 100 mg daily and nystatin swish and swallow 4 times a day. PHYSICAL EXAMINATION: Vital Signs: Temperature is 97.8 degrees, pulse rate 93, respiratory rate 20, blood pressure 111/79, O2 saturation is 100% on room air. General: This is a fairly healthy- appearing middle-aged female. She is sitting up in the bed, currently in no acute distress. HEENT: Atraumatic, normocephalic. Oral mucous membranes are pink and moist. Conjunctivae are pale. Neck: Supple. Trachea is midline. Cardiovascular: Heart rate and rhythm are regular. Normal sinus rhythm on the monitor. Respiratory: Lung sounds are bilaterally clear to auscultation, diminished in the bases. No work of breathing is noted. Abdomen: Soft and mildly obese. Bowel sounds are active. Integumentary: There are Steri-Strips in place to the right Port-A-Cath surgical site. Those are dry and intact without any drainage swelling or erythema noted. Neurologic: She is awake, alert, oriented, able to move around in the bed independently. DIAGNOSTIC STUDIES: Today, no CBC today but her creatinine is 1.5, GFR 45. Her blood cultures times two sets have grown Viky albicans. There is a preliminary set which was drawn yesterday and is pending. No imaging reports today. ASSESSMENT AND PLAN: Ms Bobby is being treated for fungemia, most likely from the Port-A-Cath which has been removed. She is receiving micafungin which we will continue. Her oral candidiasis has improved. We will continue nystatin swish and swallow at this point. For now, we will await a sterile set of blood cultures, which we are hoping will be available in the morning. She will need to have her Port-A-Cath reinserted once the sterile cultures have been obtained. I've spoken with Dr. Mobley, and he will talk to the patient about the possibility of reinsertion of the PAC tomorrow, once the cultures are back. We are also awaiting a procalcitonin which was drawn yesterday. We will check a CBC in the morning. These plans have been discussed with and recommended by Dr. Wilkinson. COMORBIDITIES: For Ms. Bobby include medical noncompliance, diabetes mellitus, and the need for a Port-A-Cath due to chronic nausea and vomiting. Dictated by NLEL Henning for Emilio Wilkinson MD cc: Emilio Wilkinson MD [facility]
--- NOTE | 2019-04-24 16:23 | PROGRESS NOTE ---
DATE: 04/24/2019 INTERVAL HISTORY: No acute events overnight. SUBJECTIVE: When I entered the room, patient was eating what looks like solid food which she immediately tried to hide under her blanket. She is denying any complaints. VITAL SIGNS: Temperature 97.8 degrees, pulse 93, respiratory rate 20, blood pressure 110/80, saturating 100% on room air. She states she has she has been eating liquid diet well. Wants me to advance her diet to full liquid diet. She denies any vomiting except occasionally when she is not able to swallow and she had to spit out. LABS: Today suggestive of improving acute kidney injury on chronic kidney disease stage 3. PHYSICAL EXAMINATION: HEENT: Oral cavity, no oral thrush. Lungs: Air entry has inspiratory crackles, left supramammary region which is significantly decreased. No wheeze or rhonchi. Cardiovascular: S1, S2 normal. No murmur, rub, or gallop. Abdomen: Soft, nontender. Extremity: No lower extremity edema. DATA: Blood cultures are growing Viky albicans. Repeat blood cultures are in lab. ASSESSMENT AND PLAN: 1. Sepsis from Viky albicans associated with infected right-sided chest port, status post removal on April 22. Continue intravenous micafungin as per ID. The plan is to await final negative cultures and treat her with 6 weeks of IV micafungin after reinsertion of another port. 2. Dislodged jejunostomy tube without complication. The patient has been tolerating liquid diet well, which I will advance to full liquid. She is also eating solid food surreptitiously. I advised her to continue only on a liquid diet considering previously she had developed recurrence of dysphagia to solid food. Stop intravenous fluids and intravenous Clinimix. Plan is to discharge her on liquid diet when her fungemia clears. 3. Chronic dysphagia, multiple esophageal strictures requiring multiple dilatations, gastroparesis due to prior history of now resolved diabetes mellitus requiring gastric pacemaker. Continue full liquid diet and outpatient followup with [facility] G[facility]ology for esophagectomy in future. 4. Her chronic kidney disease stage 3 are stable. Her renal tubular acidosis is stable. Her acute kidney injury is also resolved. 5. Disposition once fungemia clears, plan is to get another port and discharge the patient on IV micafungin for 48 hours or so. Plan of care discussed with her. Her questions have been answered. cc: Clay Still MD
--- NOTE | 2019-04-24 18:54 | GENERAL SURGERY PROGRESS NOTE ---
DATE: 04/24/2019 SUBJECTIVE: The patient is doing okay. No acute events overnight. OBJECTIVE: General: She is awake, alert, oriented x3, in no acute distress. Vital signs: She is afebrile. Vital signs are stable. Chest: Her right port site excision site is clean and dry. LABORATORY DATA: Her chemistry panel was reviewed and unremarkable. Microbiology was reviewed. She has had blood cultures positive for felisa on this admission. Most recent blood culture was obtained yesterday and is still pending. That is status post removal of the port. Her fever has notably resolved since removal of the port. ASSESSMENT AND PLAN: A 43-year-old female with severe esophageal stricture, now with fungemia secondary to a port infection. Once her blood cultures are clear we will replace the port so she can resume total parenteral nutrition. The plan after that is to refer her to Gastroenterology or a thoracic surgeon at [facility] for consideration of palliative esophagectomy. The total parenteral nutrition will be needed so that the surgeon can plan appropriate timing of esophagectomy and/or abdominal feeding tube. We do not want to unnecessarily operate on her abdomen more than necessary. cc: Samm Molbey MD
[2019-04-25] MEDS: HUMALOG SUBQ SCH (06:28)
[2019-04-25 07:36] LABS: BASO# 0.08 X1000 (0.0-0.2); BASO% 1.4 % (0.0-0.8); EOS% 3.5 % (0.0-10.0); HEMATOCRIT 25.1 % (37.0-47.0); IMM GRAN# 0.02 X1000 (0.0-0.04); IMM GRAN% 0.4 % (0.0-0.5); LYMPH# 2.05 X1000 (1.2-3.4); MCH 26.8 PG (27-31); MCHC 31.9 g/dL (33-37); MCV 83.9 FL (81-99); MONO# 0.64 X1000 (0.11-0.59); MONO% 11.2 % (1.7-9.3); NEUT# 2.71 X1000 (1.4-6.5); NEUT% 47.5 % (42.2-75.2); PLT 198 X1000 (130-400); RBC 2.99 XMIL (4.2-5.4); RDW 16.1 % (11.5-14.5)
[2019-04-25 07:55] LABS: CALCIUM 7.6 mg/dL (8.8-10.2); CREATININE 1.4 mg/dL (0.5-0.9); POTASSIUM 3.3 mmol/L (3.5-5.1)
[2019-04-25 08:14] LABS: EOS 4 % (1-10); LYMPHS 28 % (21-51); SEGS 66 % (42-75)
[2019-04-25] MEDS ORDERED: DIPRIVAN 1% ONE (09:10)
[2019-04-25] MEDS ORDERED: XYLOCAINE-MPF 2% ONE (09:10)
[2019-04-25] MEDS ORDERED: NS 250 ML ONE (09:20)
[2019-04-25] MEDS ORDERED: XYLOCAINE 1%/EPI 1:100,000 ONE (09:20)
[2019-04-25] MEDS ORDERED: SENSORCAINE 0.25%/EPI 1:200,000 ONE (09:29)
[2019-04-25] MEDS ORDERED: QUELICIN (DOSE) ONE (09:34)
[2019-04-25] MEDS ORDERED: FENTANYL ONE (09:35)
--- NOTE | 2019-04-25 09:54 | PROGRESS NOTE ---
DATE: 04/25/2019 INTERVAL HISTORY: No acute events overnight. The patient is scheduled to undergo port placement today. The patient tells me that there might be plans of putting in a jejunostomy tube as well, and according to her, she was going to get discharged on TPN at home. Currently, she denies any complaints. She denies any chest pain or shortness of breath. She does complain of a dry cough. Denies any vomiting. She states she eats solid food, or tastes and spits it out. OBJECTIVE: Vital Signs: Temperature 98.3 degrees, pulse 82, respiratory rate 18, blood pressure 120/70, saturating 99% on room air. General: Does not appear in any acute distress. HEENT: Oral cavity is moist. Lungs: She does have left supramammary inspiratory crackles. No wheeze or rhonchi. Adequate air entry. Cardiovascular: S1, S2 normal. No murmur or gallop. Abdomen: Soft, mildly tender. Active bowel sounds. Extremities: No lower extremity edema. Neurologic: She is alert and oriented x3. LABORATORY DATA: She does have normocytic anemia, normal platelet count. Hypokalemia is currently being repleted. She has chronic kidney disease stage 3. MICROBIOLOGY: Blood cultures on 04/23/2019 did not have any more fungus. ASSESSMENT AND PLAN: 1. Sepsis from Viky albicans associated with infected right-sided chest port that was removed on 04/22/2019. Continue intravenous micafungin for a total of 6 weeks. First day of negative blood culture being 04/23/2019. Plan is to get another port for long-term antifungal therapy today. 2. Dislodged jejunostomy tube without complication. Continue full liquid diet. Appreciate Surgery recommendations about jejunostomy tube replacement in future. Also, the definitive plan for esophagectomy at [facility] in the future. Her intravenous fluids and Clinimix have been stopped for now. 3. Chronic dysphagia, multiple esophageal strictures requiring multiple dilatations in the past; gastroparesis due to prior history of diabetes mellitus requiring gastric pacemaker; her diabetes currently has resolved though. I will continue her on full liquid diet, and after discussion with Surgery, she would likely be discharge on total parenteral nutrition possibly. Her oral intake has not been consistent over weeks. She often does well for a few days on oral diet and then her dysphagia recurs. Considering this and considering possible esophagectomy in near future, the plans are to wait for TPN approval and discharge her on TPN with liquid oral diet as tolerated. 4. Chronic kidney disease stage 3, currently stable. Her acute kidney injury has resolved. DISPOSITION: The patient is hemodynamically stable after today's port placement and coordination with [facility] team. I would anticipate discharge in the next 24 to 48 hours. Plan of care discussed with the patient. Her questions have been satisfactorily answered. ADDENDUM: Surgery team was informed by the insurance physician that her TPN has been approved. I have conveyed the necessary information to the home health care social worker team. cc: Clay Still MD MTDD
[2019-04-25] MEDS ORDERED: KEFZOL 1 GM/D5W 1 GM/50 ML IVPB ONE (10:00)
[2019-04-25] MEDS ORDERED: DECADRON ONE (10:19)
[2019-04-25] MEDS ORDERED: ZOFRAN ONE (10:19)
--- NOTE | 2019-04-25 11:16 | OPERATIVE NOTE ---
PROCEDURE DATE: 04/25/2019 PREOPERATIVE DIAGNOSES: 1. Malnutrition. 2. Severe esophageal stricture. 3. Difficult enteral access. POSTOPERATIVE DIAGNOSES: 1. Malnutrition. 2. Severe esophageal stricture. 3. Difficult enteral access. PROCEDURE: Insertion of [id number]-vjaepjpe with fluoroscopic and ultrasound guidance. SURGEON: Dr. Samm Mobley. BORDER MEASURER: MINNIE Carballo. ANESTHESIA: General. ESTIMATED BLOOD LOSS: 3 mL. COMPLICATIONS: None apparent. SPECIMENS: None. FINDINGS: The right internal jugular vein was quite narrow proximally and perhaps had fibrin sheath as the wire would not pass successfully. The left and internal jugular vein, however, was widely patent and compressible and fluoroscopy revealed proper placement of the wire to the right atrium followed by the tip of the catheter at the superior vena cava/right atrial junction. TECHNIQUE: She was brought to the operating room and placed supine on the table. General anesthesia was induced. She was prepped and draped in usual sterile fashion. Beginning in the right neck, the internal jugular vein was found with ultrasound. In the mid neck, it appeared to be compressible and patent, but had a questionable fibrin sheath more proximally. The syringe and needle were advanced under ultrasound guidance into the internal jugular vein, obtaining dark nonpulsatile blood. However, the wire would not pass successfully through the needle down the vein to the right atrium. We then aborted further attempts on the right side. On the left side, the findings were as noted above. The vein was accessed easily under ultrasound guidance. An incision was made around the wire. The wire was fixed to the drape. It was confirmed to have its tip in the right atrium with fluoroscopy. I then made an incision below the left clavicle with a knife followed by cautery down to the pectoral fascia. A pocket was created anterior to the fascia with cautery and finger dissection. I then tunneled the catheter subcutaneously from the lower incision out through the neck incision. The dilator and sheath were passed over the wire under fluoroscopic guidance. The wire and dilator were removed. The catheter was passed into the sheath. The sheath was removed. The tip of the catheter was at the superior vena cava/right atrial junction under fluoroscopy. The catheter was then cut to size and fixed to the port. The port was anchored to the fascia with 2-0 Surgipro at 2 o'clock, 6 o'clock, and 10 o'clock. The port yevgeniy back blood. It was flushed with heparin saline easily. The incisions were closed with subcutaneous interrupted 3-0 Polysorb and a running 4-0 subcuticular Monocryl, then Steri-Strips. There were no apparent complications. She was awakened in a stable condition and transferred to the recovery room. cc: Samm Mobley MD
--- NOTE | 2019-04-25 11:48 | Diag Imaging Result Doc PS360 ---
EXAM: CHEST-PORTABLE 04/25/2019 HISTORY: status post port placement TECHNIQUE: AP portable upright at 1140 COMMENT: There is cardiomegaly. There is increased pulmonary vascularity. There is patchy opacity in the mid and lower lung field on the left which was not present on 04/19/2019. There is a Port-A-Cath on the left with its tip in the right atrium. There is no evidence of pneumothorax. Otherwise there has been no significant change. IMPRESSION: Atelectasis versus pneumonia in the left lower lobe. Electronically signed by Napoleon Bearden 04/25/2019 11:46 AM
[2019-04-25] MEDS: PHENERGAN IV PRN ×3 (12:31→21:11)
[2019-04-25] MEDS: POTASSIUM CHLORIDE 20 MEQ/SWI 20 MEQ/100 ML IVPB IV SCH ×2 (12:33→21:15)
[2019-04-25] MEDS: MYCOSTATIN SUSP PO SCH ×4 (12:36→21:11)
[2019-04-25] MEDS: PERCOCET-10 PO PRN ×3 (12:40→21:11)
--- NOTE | 2019-04-25 14:02 | INFECTIOUS DISEASE PROGRESS NO ---
DATE: 04/25/2019 The patient is being discharged today. She had her Port-A-Cath put back in. She will be going home on micafungin 100 mg daily for 40 days. I have requested that the patient come to my office 20 days for follow-up care. The patient is being treated for 6 weeks with micafungin because she has a gastric pacemaker in place which may have become infected while the patient was fungemic. cc: Emilio Wilkinson MD
[2019-04-25] MEDS: MYCAMINE 100 MG in NS 100 ML IV SCH (17:32)
[2019-04-25] MEDS: SODIUM CHLORIDE 0.9% INJ PRN (17:33)
[2019-04-25] MEDS: LEVAQUIN PO SCH (18:19)
[2019-04-25] MEDS ORDERED: HUMULIN R SUBQ ONE (22:32)
[2019-04-25] MEDS: HUMULIN R SUBQ SCH (22:47)
[2019-04-26] MEDS: PERCOCET-10 PO PRN (06:00)
[2019-04-26] MEDS: PHENERGAN IV PRN (06:00)
[2019-04-26] MEDS: HUMULIN R SUBQ SCH ×2 (06:01→11:25)
[2019-04-26] MEDS ORDERED: PRILOSEC PO SCH (07:00)
--- NOTE | 2019-04-26 07:35 | Diag Imaging Result Doc PS360 ---
EXAM: CHEST-2 VIEWS INDICATION: hypoxia TECHNIQUE: 2 views COMPARISON: 04/25/2019 FINDINGS: The left chest port is in stable position. The left lower lobe consolidation seen previously is stable to marginally improved. No new consolidation is identified. Cardiac silhouette is stable. IMPRESSION: Stable to marginal improvement of left basilar consolidation. Electronically signed by Vijay Zapata 04/26/2019 7:33 AM
[2019-04-26 07:55] VITALS: BP 126/81
[2019-04-26] MEDS: LEVAQUIN PO SCH (09:54)
[2019-04-26] MEDS: MYCOSTATIN SUSP PO SCH ×2 (09:54→12:37)
--- NOTE | 2019-04-26 12:17 | PROGRESS NOTE ---
DATE: 04/26/2019 INTERVAL HISTORY: No acute overnight events. SUBJECTIVE: Patient denies new complaints. PHYSICAL EXAMINATION: Vital Signs: Temperature 97.4 degrees, pulse 84, respiratory rate 20, blood pressure 120/80, saturating 100% room air. General: On physical examination, she does not appear in acute distress. Oral cavity: Moist. Lungs: Air entry bilaterally equal. No wheeze, rhonchi or crackles. Heart: S1, S2 normal. No murmur, rub or gallop. Abdomen: Nontender. Active bowel sounds. Extremities: No lower extremity edema. Neurologic: She is alert and oriented x3. LABS: No CBC or BMP today. Her blood glucose is 122. Blood culture did not have any growth, the first day being April 23. IMAGING: Chest x-ray performed today in the morning for hypoxia had stable to marginal improvement in left basilar consolidation. ASSESSMENT AND PLAN: 1. Sepsis from Viky albicans associated with infected right-sided chest port, status post removal on April 22 and reinsertion on April 25. She would need intravenous micafungin for 6 weeks. 2. Chronic dysphagia, multiple esophageal strictures requiring multiple dilatations in the past, gastroparesis due to prior history of diabetes mellitus requiring pacemaker, dislodged jejunostomy tube and inconsistent oral intake. Currently, she is tolerating liquid diet, which may not be adequate for nutrition, and she oftentimes developed recurrence of esophageal stricture, nausea, vomiting requiring hospital admission within a couple of weeks of discharge. So, total parenteral nutrition is currently being under process. Ideally, she would benefit from total parenteral nutrition for optimization of nutrition, and she can take oral for pleasure while awaiting definitive esophagectomy at [facility]. 3. Chronic kidney disease stage III is stable. 4. Disposition pending set up of intravenous micafungin at home, as well as total parenteral nutrition. Household Assistant team on board. Plan of care discussed with her. Her questions have been answered. cc: Clay Still MD
--- NOTE | 2019-04-26 15:54 | DISCHARGE SUMMARY ---
ADMISSION DATE: 04/15/2019 DISCHARGE DATE: 04/26/2019 DISCHARGE DISPOSITION: Home with home IV micafungin for 40 more days and the last day of antibiotics, antifungals should be 06/05/2019. Unfortunately, TPN could not be arranged even after multiple attempts. DISCHARGE CONDITION: Hemodynamically stable. She is alert and oriented x3. She is able to swallow liquids without any trouble. She does not have nausea and vomiting. Her left lower lobe pneumonia is stable and she is being discharged on antibiotics. DISCHARGE DIAGNOSES: 1. Sepsis from Viky albicans associated with infected right-sided chest port. 2. Left lower lobe pneumonia hospital-acquired. 3. Acute kidney injury on chronic kidney disease stage 3. 4. Displaced jejunostomy tube. 5. Hypokalemia. 6. Acute kidney injury due to profound volume depletion. 7. Medical noncompliance. OTHER DIAGNOSES: 1. Past history of diabetes mellitus, which has now resolved and not currently on any medication therapy. 2. History of gastroparesis status post gastric pacemaker. 3. History of intractable nausea, vomiting, leading to multiple esophageal strictures requiring multiple esophageal dilatations, now awaiting referral to [facility] for esophagectomy. DISCHARGE MEDICATIONS: 1. IV micafungin for 14 more days the last day being 06/05/2019 for candidemia. 2. Levofloxacin 750 mg daily for 5 days. 3. Pantoprazole 40 mg b.i.d. 4. Metoclopramide 10 mg t.i.d. with meals. CONSULTATIONS AND PROCEDURES DURING HOSPITALIZATION: 1. Infectious Disease, Dr. Wilkinson. She is supposed to follow up with him within 20 days. 2. General Surgery, Dr. Mobley who performed infected port removal on 04/22/2019 and put in another port on 04/25/2019. The patient should call and report to Dr. Mobley's office within 4 to 5 days from where she is supposed to be referred to [facility] for esophagectomy. VITAL SIGNS AT THE TIME OF DISCHARGE: Temperature 97.4 degrees, pulse 84, respiratory rate 20, blood pressure 120/80, saturating 100% room air. PHYSICAL EXAMINATION: General: Does not appear in any acute distress. HEENT: Oral cavity is moist. She does have bilateral parotitis. Lungs: Air entry bilaterally equal. No wheeze, rhonchi, crackles. Cardiovascular: S1, S2 normal. She does have bilateral parotid enlargement. Cardiovascular: S1, S2 normal. No murmur, rub, or gallop. Abdomen: Soft. Multiple scars of previous abdominal surgery. Right lower quadrant gastric pacemaker. Jejunostomy wound is well healed. Active bowel sounds. Extremity: No lower extremity edema. Neurologic: She is alert and oriented x3. SIGNIFICANT LABS AT HOSPITAL ADMISSION AND DISCHARGE: Hemoglobin is 8.5, platelet 198,000, WBC 5.7. On admission her creatinine was 3.1; at the time of discharge it was 1.4. Her blood sugar is 122. Significant micro during hospital admission: Blood cultures are growing Viky albicans. First day of negative blood culture was April 23. SIGNIFICANT IMAGING DURING HOSPITAL ADMISSION: Abdomen/pelvis CT on admission performed to see any complications after dislodgement of jejunostomy tube. Did not detect any acute evidence of disease. Chest x-ray on April 19 had resolution of left lower lobe pneumonia without any acute disease. Chest x-ray on April 26 had marginal improvement in left basilar consolidation. HOSPITAL COURSE SUMMARY: Ms. Jansen is a 43-year-old woman with past medical history of multiple esophageal strictures requiring multiple dilatations, episodes of nausea and vomiting, who came in on 04/15/2019 with chief complaints of J-tube dislodgement since about 3 weeks duration. Apparently on last admission, the patient had received J-tube for nutrition and was discharged home to receive J-tube feedings which got dislodged 3 weeks ago. However, she did not report in a surgical office because of unclear reasons and she was able to drink liquids through the mouth. However, she started developing nausea and vomiting and that is why she decided to come to the hospital. On arrival, she was found to have acute kidney injury and chronic kidney disease stage 3 and a profound hypokalemia, so hospitalist team was requested to admit. She was admitted for intravenous fluid resuscitation and potassium repletion. Blood cultures were obtained, as during hospital admission, she had started developing fever of about 102.9 degrees Fahrenheit, which grew Viky albicans. It was thought that her source of infection was a right- sided chest port which was removed. Infectious Disease was consulted and she was continued on IV micafungin and she cleared the infection, so the chest was put back. At the time of discharge the plan is to continue home intravenous micafungin infusion for 40 more days the last day being June 05. She also developed left lower lobe hospital-acquired pneumonia and dry cough for which she was to be discharged on oral Levaquin. Attempts were made to have outpatient TPN set up for her. The patient though during hospital admission was able to drink full liquid diet without any discomfort and she was also found to be surreptitiously eating solid food. In the past, her oral intake had not been consistent and she used to develop episodes of nausea vomiting every few weeks. There were concerns that she would again have recurrence of these symptoms at home so for definitive nutrition plan TPN was pursued, however multiple insurance issues were encountered. At the time of discharge, the patient agreed to go home on liquid diet and have close follow up with outpatient doctor. She should have outpatient followup with General Surgery, Dr. Mobley. From there the plans are to be send her to [facility] for esophagectomy as a definitive means of her recurrent nausea and vomiting. TIME SPENT: More than 30 minutes spent in discharging this patient. ADDENDUM: I was informed that patient could not afford the cost associated with home IV antifungal and she decided to come to hospital every day for her anti-fungal treatment. cc: Clay Still MD MTDD
== END 2019-04-26 13:51 | disposition home health service (06) | DRG 393 ==
LOC: ED 13:30 → SUATTDRO 17:57 → 1N 17:57
PROVIDERS: ATTEND Internal Medicine

== ENCOUNTER 2019-05-20 08:41 | Inpatient (IN) ==
[2019-05-20] MEDS ORDERED: ZOFRAN IV ONE (09:47)
[2019-05-20] MEDS ORDERED: NS 1,000 ML IV ONE (09:47)
--- NOTE | 2019-05-20 09:53 | PROVIDER DOCUMENTATION ---
HPI-Abdominal Pain/GI Problem - General Chief Complaint: Nausea/Vomiting Stated Complaint: SORE THROAT, VOMITTING Time Seen by Provider: 05/20/19 09:46 Source: patient Allergies/Adverse Reactions: Patient Allergies Allergy/AdvReac Type Severity Reaction Status Date / Time No Known Allergies Allergy Verified 02/12/19 10:46 Home Medications: Home Medication List Medication Instructions Recorded Confirmed Last Taken Type NK [No Home Medications] 05/20/19 05/20/19 Unknown History - History of Present Illness-ABD Nature of Presenting Problems: 43yof presents to ED c/o N/V/lower abd pain x2 days. She denies fev er/chills/diarrhea/dysuria. She states sx c/w prior gastroparesis. Quality of Pain: reports: none Onset/Duration: reports: 24 hours ago Modifying Factors: improves with: nothing Bruising or Bleeding Gums?: No Similar Symptoms Previously?: No Recently seen or treated by another doctor?: No Review of Systems - Adult - REVIEW OF SYSTEMS - ADULT Constitutional: reports: no symptoms reported Eyes: reports: no symptoms reported Ears, Nose, Mouth & Throat: reports: no symptoms reported Cardiovascular: reports: no symptoms reported Respiratory: reports: no symptoms reported Gastrointestinal: reports: diarrhea Genitourinary: reports: no symptoms reported Musculoskeletal: reports: no symptoms reported Integumentary: reports: no symptoms reported Neurological: reports: no symptoms reported Psychiatric: reports: no symptoms reported Endocrine: reports: no symptoms reported Hematologic/Lymphatic: reports: no symptoms reported Allergic/Immunologic: reports: no symptoms reported All Other Systems: Reviewed and Negative Past History - Adult - PAST MEDICAL HISTORY-ADULT Review of Records: reports: Old Records Reviewed, Nursing Assessment Review, Medications Reviewed, Social history reviewed & non-contributory. Major Childhood Illnesses: reports: denies history Cardiovascular: reports: HTN, hyperlipidemia Respiratory: reports: denies history Gastrointestinal: reports: GERD (with esophagitis and stenosis), GI bleed, ulcer , other (diabetic gastroparesis, erosive gastritis and esophagitis; gastric pacemaker) Obstetrical/Gynecological: reports: denies history Genitourinary: reports: kidney disease, other (ammenorrhea for 1 year) Musculoskeletal: reports: denies history Neurological: reports: other (DM neuropathy) Psychiatric: reports: anxiety, depression Endocrine/Immune: reports: anemia, Diabetes Other Conditions: reports: denies history Additional History: frequent ER visits - PRIOR SURGERIES/PROCEDURES Surgical/Procedure History: reports: cholecystectomy, indwelling device (Portacath), other (gastric stimulator) - IMMUNIZATION STATUS Childhood Immunizations: See Nurse Assessment Flu Vaccine: See Nurse Assessment - FAMILY HISTORY Family History: reviewed, not pertinent - SOCIAL HISTORY Smoking: non-smoker Living Situation: family Physical Exam-General - PHYSICAL EXAM-ADULT Initial Vital Signs Reviewed: Yes - CONSTITUTIONAL General Appearance: appears well, alert, no apparent distress - EYES Eyes: PERRL/EOMI, pink conjunctivae - HEAD, EARS, NOSE, MOUTH & THROAT HENMT: normocephalic/atraumatic, normal ENT inspection, TMs normal, pharynx no rmal, other (Dry MM) - NECK Neck: non-tender, full range of motion, supple, normal inspection - RESPIRATORY Respiratory: chest non-tender, lungs clear, normal breath sounds, no pleuratic chest pain, no respiratory distress, no accessory muscle use - CARDIOVASCULAR Cardiovascular: normal peripheral pulses, regular rate, rhythm, no edema, no gallop, no JVD - GASTROINTESTINAL (ABDOMEN) Abdominal Exam: normal bowel sounds, non tender, soft, no organomegaly - LYMPHATIC Lymphatic: no adenopathy - MUSCULOSKELETAL Back Exam: normal inspection, no CVA tenderness, no vertebral tenderness Extremity: normal range of motion, non-tender, normal gait, normal inspection Peripheral Pulses: radial (R): 4+, radial (L): 4+ - SKIN Integumentary: normal color, normal turgor, warm/dry - NEUROLOGIC 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: 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 II-XII nml as tested, grossly normal, no motor/sensory deficits - PSYCHIATRIC Psych/Mental Status: normal mood/affect, normal thought content, normal thought process, oriented x 3 Progress - PLAN OF CARE/RESULTS Progress/Plan/Lab Results: Vital Signs - 8 hr 05/20/19 09:15 Temperature 98 F Pulse Rate 87 Respiratory Rate 18 Blood Pressure 104/72 O2 Sat by Pulse Oximetry 100 Laboratory Results - last 24 hr 05/20/19 09:17 POC Glucose 129 H Orders Category Date Time Status FSBS [Finger Stick Blood Sugar (ED)] DIRECTED Care 05/20/19 09:21 Active AMYLASE [CHEM] Stat Lab 05/20/19 09:47 Ordered CBC WITH DIFF [HEME] Stat Lab 05/20/19 09:47 Ordered COMPREHENSIVE METABOLIC PANEL [CHEM] Stat Lab 05/20/19 09:50 Ordered LIPASE [CHEM] Stat Lab 05/20/19 09:[address] W/POSS RFLX CULT [URINALYSIS] Stat Lab 05/20/19 09:47 Uncollected 0.9% Sodium Chloride Inj [Ns] 1,000 ml Med 05/20/19 09:47 Active IV 999 mls/hr Ondansetron [Zofran] Med 05/20/19 09:47 Discontinued 4 mg IV NOW ONE Result Diagrams: 05/20/19 10:25 05/20/19 11:05 - REASSESSMENT Reassessment #1 Time Reassessed: 13:32 (Awaiting CT results.) Reassessment #2 Time Reassessed: 14:10 ([address] results; paged hospitalist for admit.) Reassessment #3 Time Reassessed: 14:32 (Discussed pt with Dr. Vang, he recommends admit and states he will get admit orders placed.) - CT/MRI 1 MRI Study: Abdomen, Pelvis Impression: See EMR Report (CT ABDOMEN/PELVIS W/O CONTRAST - 05/20/2019 INDICATION: vomiting, abd pain, eval for SBO, creat 2.0 COMPARISON: 04/20/2019 FINDINGS: The lung bases are clear and the heart size is normal. There is mild body wall edema which has improved since prior. The perinephric stranding has resolved. There are cholecystectomy clips. There is an implanted device in the abdomen with a wire leading to the stomach. No bowel obstruction or free air. No radiodense renal stones. No hydronephrosis or hydroureter. Urinary bladder and rectum are normal. The IUD appears possibly misplaced, the distal most and appears nearly horizontally oriented and is probably coming out of the cervix. However, this is stable from prior. Bones are intact and well mineralized. IMPRESSION: Stable, indeterminate placement of the IUD. Otherwise no acute process. This exam was performed using automated exposure control, adjustment of mA or kV according to patient size, and/or use of iterative reconstruction technique Electronically signed by Chapito Duran 05/20/2019 1:46 PM) Departure - Departure Date of Disposition Decision: 05/20/19 Time of Disposition Decision: 11:48 DIAGNOSIS: Hypokalemia Vomiting Qualifiers: Vomiting type: unspecified Vomiting Intractability: non-intractable Nausea presence: with nausea Qualified Code(s): R11.2 - Nausea with vomiting, unspe cified Abdominal pain Qualifiers: Abdominal location: unspecified location Qualified Code(s): R10.9 - Unspecified abdominal pain Disposition: ADMITTED INPATIENT 09 Certified Medical Emergency: Emergent Condition: Stable Referrals and Follow-Ups: [facility] [Outside] None,PCP [Primary Care Provider] - - Critical Care Note This patient required my direct & personal management of CC.: Yes Total Time (mins): 35 Critical Care Statement: This patient required my direct personal management to treat or rule out processes, the absence of which, could potentiallly result in sudden, clinically significant life or limb threatening deterioration. Attestation - Physician/ GAUDENCIO Attestation Patient care was provided by Advanced Practice Provider:: Yes Advanced Practice Provider:: Perla Valencia Advanced Practice Provider documentation review:: The Mid-level provider documentation, treatment plan and medical decision making was reviewed by the physician who agrees with all treatment and medical decision making by the MLP. The physician spent face to face time with patient:: No Advanced Practice Provider documentation review:: Supervising physician onsite and consulted in the evaluation and care of this patient. The physician did not have a face to face encounter with the patient.
[2019-05-20 10:56] LABS: BILIRUBIN URINE 1+ (NEGATIVE); BLOOD URINE NEGATIVE (NEGATIVE); GLUCOSE URINE NEGATIVE (NEGATIVE); KETONE URINE 1+(Small) mg/dL (NEGATIVE); LEUKOCYTES URINE TRACE (NEGATIVE); NITRITE URINE NEGATIVE (NEGATIVE); PROTEIN URINE 2+(100 mg/dL) mg/dL (NEGATIVE); SP GRAVITY URINE 1.015; UROBILINOGEN URINE 1 mg/dL
[2019-05-20 10:57] LABS: CLARITY SL. CLOUDY (CLEAR); COLOR YELLOW
[2019-05-20 10:58] LABS: URINE BACTERIA NEGATIVE /HFP; URINE CAST NONE SEEN /LPF; URINE CRYSTAL NONE SEEN /HPF; URINE EPITHELIAL CELLS >10 /HPF (<10); URINE RBC <10 /HPF (<10); URINE SOURCE CATH; URINE WBC <10 /HPF (<10); URINE YEAST NONE SEEN /HPF
[2019-05-20 11:01] LABS: BASO# 0.03 X1000 (0.0-0.2); BASO% 0.5 % (0.0-0.8); EOS% 1.7 % (0.0-10.0); HEMATOCRIT 32.8 % (37.0-47.0); HEMOGLOBIN 11.3 g/dL (12.0-16.0); IMM GRAN# 0.01 X1000 (0.0-0.04); IMM GRAN% 0.2 % (0.0-0.5); LYMPH% 32.6 % (20.5-51.1); MCH 26.7 PG (27-31); MCHC 34.5 g/dL (33-37); MCV 77.5 FL (81-99); MONO# 0.51 X1000 (0.11-0.59); MONO% 8.7 % (1.7-9.3); NEUT# 3.28 X1000 (1.4-6.5); NEUT% 56.3 % (42.2-75.2); PLT 256 X1000 (130-400); RBC 4.23 XMIL (4.2-5.4); RDW 16.4 % (11.5-14.5); WBC 5.83 X1000 (4.8-10.8)
[2019-05-20] MEDS ORDERED: PHENERGAN IM ONE (11:31)
[2019-05-20 11:41] LABS: ALBUMIN 3.1 g/dL (3.5-5.0); CALCIUM 7.9 mg/dL (8.8-10.2); TOTAL BILIRUBIN 1.5 mg/dL (0.20-1.00); TOTAL PROTEIN 6.5 g/dL (6.3-8.3)
[2019-05-20 11:44] LABS: POTASSIUM 1.7 mmol/L (3.5-5.1)
[2019-05-20] MEDS ORDERED: KLOR-CON PO ONE (11:46)
[2019-05-20] MEDS ORDERED: MORPHINE IV ONE (11:56)
[2019-05-20] MEDS: NS + KCL 20 MEQ 1,000 ML IV SCH ×2 (12:04→19:57)
--- NOTE | 2019-05-20 13:48 | Diag Imaging Result Doc PS360 ---
CT ABDOMEN/PELVIS W/O CONTRAST - 05/20/2019 INDICATION: vomiting, abd pain, eval for SBO, creat 2.0 COMPARISON: 04/20/2019 FINDINGS: The lung bases are clear and the heart size is normal. There is mild body wall edema which has improved since prior. The perinephric stranding has resolved. There are cholecystectomy clips. There is an implanted device in the abdomen with a wire leading to the stomach. No bowel obstruction or free air. No radiodense renal stones. No hydronephrosis or hydroureter. Urinary bladder and rectum are normal. The IUD appears possibly misplaced, the distal most and appears nearly horizontally oriented and is probably coming out of the cervix. However, this is stable from prior. Bones are intact and well mineralized. IMPRESSION: Stable, indeterminate placement of the IUD. Otherwise no acute process. This exam was performed using automated exposure control, adjustment of mA or kV according to patient size, and/or use of iterative reconstruction technique Electronically signed by Chapito Duran 05/20/2019 1:46 PM
[2019-05-20] MEDS ORDERED: ZOFRAN ONE (17:13)
[2019-05-20] MEDS ORDERED: ZOFRAN IV PRN (17:52)
[2019-05-20] MEDS ORDERED: PHENERGAN PO PRN (19:45)
[2019-05-20] MEDS: PHENERGAN IM PRN (20:20)
--- NOTE | 2019-05-20 20:28 | HISTORY AND PHYSICAL ---
PRIMARY CARE PHYSICIAN: Listed as none. CHIEF COMPLAINT: Of nausea, vomiting and lower abdominal pain for 2 days that progressively worsened. HISTORY OF PRESENTING ILLNESS: This is a 43-year-old female who is well known to this hospitalist service, presents to [facility] ER with complaints of nausea, vomiting and lower abdominal pain for the past 2 days that has progressively worsened. Her last admission to the hospital was 04/15/2019 through 04/26/2019. Her workup currently showed a potassium of 1.7, a creatinine of 2.0, which is a little up from her baseline ranging from 1.4 to 1.7. We did do a CT of the abdomen, pelvis that was stable and no acute process noted but she will be admitted to the intensive care unit for further evaluation and treatment. PAST MEDICAL HISTORY: 1. Of gastroparesis status post gastric pacemaker by Dr. Stanford at [facility] in 2014, diabetes type 2 noncompliance with medications. 2. Insomnia. 3. Chronic kidney disease stage 3. 4. Hypertension. 5. Esophageal strictures requiring frequent dilations. 6. History of gastritis. 7. Intractable nausea, vomiting. 8. Dysphagia secondary to strictures. PAST SURGICAL HISTORY: Of a cholecystectomy, gastric pacemaker in 2014, Port-A-Cath placement, esophageal dilation and G-tube placement in February 2019. FAMILY HISTORY: Reviewed and noncontributory. SOCIAL HISTORY: She denies any tobacco, alcohol, states that she is no longer smoking marijuana. She has had positive drug screens in the past and we are going to check a UDS at this time to verify that, she has carried a history of hyperemesis cannabinoid syndrome in the past as well. ALLERGIES: No known drug allergies. HOME MEDICATIONS: The patient states that she does not take any medications on a routine basis. LABORATORY DATA: Showed a white blood cell count of 5.83, hemoglobin 11.3, hematocrit 32.8, platelets 256,000. Sodium 139, potassium 1.7, chloride 107, CO2 17, BUN of 11, creatinine of 2, glucose 141, amylase 108, lipase 47. Urinalysis was negative. CT of the abdomen and pelvis was stable, indeterminate placement of her IUD otherwise no acute process. REVIEW OF SYSTEMS: She denied any fever, chills, blurred vision, dizziness, chest pain, coughing, shortness of breath. She had lower abdominal pain, nausea, vomiting. Denied any constipation, diarrhea, burning or hurting with urination. PHYSICAL EXAMINATION: On arrival she had a temperature of 98 degrees, pulse 87, respirations 18, blood pressure 104/72, saturating 100% on room air. GENERAL: This is a 43-year-old female who is lying in the bed and answers questions appropriately. HEENT: Normocephalic, atraumatic. Normal ENT inspection. Oropharynx and nares are clear. Pupils are equal, round, and reactive to light, accommodation. Extraocular movements are intact. NECK: Normal inspection, normal range of motion. LUNGS: Clear to auscultation bilaterally with equal lung expansion and chest wall movement. HEART: With regular rate and rhythm. No murmurs, rubs, or gallops. ABDOMEN: Soft, nontender, nondistended. Bowel sounds are present x4 quadrants. MUSCULOSKELETAL: She has 5/5 strength x4 extremities. NEUROLOGICAL: The cranial nerves 2-12 appear grossly intact. ASSESSMENT: 1. Cyclical vomiting. 2. Hypokalemia. 3. A mild acute kidney injury on chronic kidney disease stage 3. 4. Gastroparesis with status post gastric pacemaker placement. PLAN: She will be admitted to the intensive care unit, placed on telemetry, clear liquid diet. She received 40 mEq of potassium x1 p.o. in the emergency room and now is getting normal saline with 20 mEq of potassium at 125 mL an hour. We are going to recheck a BMP at 5 p.m. and she will get a urine drug screen. She will receive Zofran 4 mg IV q.4 hours p.r.n. Recheck CBC, BMP in the a.m. Will place her on Nexium 40 mg IV daily. Further orders after seen by attending. Dictated by NELL Scales for Jaime Vang MD cc: NELL Scales MD
[2019-05-20 20:36] LABS: CALCIUM 7.8 mg/dL (8.8-10.2); CREATININE 1.9 mg/dL (0.5-0.9)
[2019-05-21] MEDS: PROTONIX IV SCH ×2 (01:49→18:03)
[2019-05-21] MEDS: SODIUM CHLORIDE 0.9% INJ SCH ×2 (01:50→18:03)
[2019-05-21] MEDS: NS + KCL 20 MEQ 1,000 ML IV SCH ×3 (03:57→20:03)
[2019-05-21] MEDS: PHENERGAN IM PRN (05:34)
[2019-05-21] MEDS ORDERED: BLISTEX MEDICATED BERRY LIP BALM TOP PRN (06:33)
[2019-05-21 06:52] LABS: BASO# 0.02 X1000 (0.0-0.2); BASO% 0.4 % (0.0-0.8); CALCIUM 7.3 mg/dL (8.8-10.2); CREATININE 1.9 mg/dL (0.5-0.9); EOS# 0.13 X1000 (0.0-0.7); EOS% 2.7 % (0.0-10.0); HEMATOCRIT 25.8 % (37.0-47.0); HEMOGLOBIN 8.8 g/dL (12.0-16.0); LYMPH# 1.92 X1000 (1.2-3.4); LYMPH% 40.4 % (20.5-51.1); MCH 27.2 PG (27-31); MCHC 34.1 g/dL (33-37); MCV 79.6 FL (81-99); MONO# 0.44 X1000 (0.11-0.59); MONO% 9.3 % (1.7-9.3); MPV 12.5 FL (7.4-10.4); NEUT# 2.24 X1000 (1.4-6.5); NEUT% 47.2 % (42.2-75.2); PLT 190 X1000 (130-400); RBC 3.24 XMIL (4.2-5.4); RDW 16.7 % (11.5-14.5); WBC 4.75 X1000 (4.8-10.8)
[2019-05-21 06:54] LABS: POTASSIUM 2.3 mmol/L (3.5-5.1)
--- NOTE | 2019-05-21 06:56 | HISTORY AND PHYSICAL ---
ADDENDUM: Patient seen and examined by myself. Full note dictated and discussed with nurse practitioner. The patient has presented to the hospital with nausea, vomiting, abdominal pain. She has unfortunately had several previous admissions for this due to her gastroparesis, in fact she has a gastric pacemaker. This time her potassium was actually low at 1.7. Creatinine is elevated at 2.0. We are going to admit her to the hospital, IV fluids, replace potassium and recheck. Please see full note. cc: Jaime Vang MD
[2019-05-21] MEDS: POTASSIUM CHLORIDE 20 MEQ/SWI 20 MEQ/100 ML IVPB IV SCH ×2 (09:27→11:29)
[2019-05-21] MEDS: MORPHINE IV PRN ×3 (09:31→18:20)
[2019-05-21] MEDS ORDERED: SODIUM CHLORIDE 0.9% INJ PRN (14:05)
--- NOTE | 2019-05-21 14:29 | PROGRESS NOTE ---
DATE: 05/21/2019 SUBJECTIVE: The patient has no major complaints. OBJECTIVE: Vital Signs: Blood pressure is 100/74, heart rate of 72, respiratory rate of 14, temperature 98 degrees, satting 99% on room air. Cardiovascular: Regular rate and rhythm. Pulmonary: Bilateral breath sounds. Clear to auscultation. GI: Soft, nontender, nondistended. Bowel sounds were positive. LABORATORY DATA: White count 4.7, hemoglobin and hematocrit 8 and 25, platelets of 190. Potassium 2.3, creatinine 1.9. PROBLEM LIST: 1. Intractable nausea, vomiting, gastroparesis. We will continue treatment and follow. She has a gastric pacemaker. Despite that, she is here frequently for these cyclical vomiting issues. She has used marijuana in the past, which I think has contributed. She is not a diabetic. 2. We will continue fluids. Hypokalemia is improved, but still ongoing. We will continue correction and follow. 3. Chronic renal failure stage III-B./ We will continue to monitor. DISPOSITION: If she is tolerating p.o., anticipate discharge soon. cc: Jermain Gregory MD
[2019-05-21 14:36] LABS: UR AMPHETAMINES QUAL NONE DETECTED (NONE DETECT); UR BARBITUATES QUAL NONE DETECTED (NONE DETECT); UR BENZODIAZEPIN QUAL NONE DETECTED (NONE DETECT); UR COCAINE QUAL NONE DETECTED (NONE DETECT)
[2019-05-21 14:37] LABS: UR CANNABINOIDS QUAL NONE DETECTED (NONE DETECT); UR METHADONE QUAL NONE DETECTED (NONE DETECT); UR METHAMPHETAMINE QUAL NONE DETECTED (NONE DETECT); UR OPIATES QUAL PRESUMPTIVE POSITIVE (NONE DETECT); UR OXYCODONE QUAL NONE DETECTED (NONE DETECT); UR PCP QUAL NONE DETECTED (NONE DETECT); UR PROPOXYPHENE QUAL NONE DETECTED (NONE DETECT); UR TCA QUAL NONE DETECTED (NONE DETECT)
[2019-05-21] MEDS: PHENERGAN IV PRN ×2 (14:42→22:20)
--- NOTE | 2019-05-21 15:40 | Diag Imaging Result Doc PS360 ---
EXAM: US PELVIC NON-OB COMPLETE - 05/21/2019 HISTORY: unexplained vaginal bleeding TECHNIQUE: Ultrasound pelvis. Exam performed using transabdominal probe. COMPARISON: None. FINDINGS: The uterus measures 8.4 x 4.5 x 3.5 cm in size. The uterus appears nongravid, with dual layer endometrial thickness of 9 mm. There is no uterine lesion identified. There is an intrauterine device which appears to be located at the cervix, rather than the more typical position at the endometrial region of the fundus. The bilateral ovaries appear normal size and demonstrate blood flow signal on Doppler images. There is no adnexal mass identified. There is no free fluid identified. IMPRESSION: Intrauterine device located at the cervix. No adnexal mass. No free fluid. Electronically signed by Vernon Bowen 05/21/2019 3:37 PM
[2019-05-22] MEDS: NS + KCL 20 MEQ 1,000 ML IV SCH ×2 (03:26→07:45)
[2019-05-22] MEDS: MORPHINE IV PRN ×4 (03:26→20:30)
[2019-05-22 07:35] LABS: BASO# 0.03 X1000 (0.0-0.2); BASO% 0.7 % (0.0-0.8); EOS# 0.07 X1000 (0.0-0.7); EOS% 1.5 % (0.0-10.0); HEMATOCRIT 27.3 % (37.0-47.0); HEMOGLOBIN 8.8 g/dL (12.0-16.0); IMM GRAN# 0.01 X1000 (0.0-0.04); IMM GRAN% 0.2 % (0.0-0.5); LYMPH# 1.11 X1000 (1.2-3.4); LYMPH% 24.5 % (20.5-51.1); MCH 26.3 PG (27-31); MCHC 32.2 g/dL (33-37); MCV 81.7 FL (81-99); MONO# 0.31 X1000 (0.11-0.59); MONO% 6.8 % (1.7-9.3); MPV 13.6 FL (7.4-10.4); NEUT% 66.3 % (42.2-75.2); PLT 216 X1000 (130-400); RBC 3.34 XMIL (4.2-5.4); RDW 17.9 % (11.5-14.5); WBC 4.53 X1000 (4.8-10.8)
[2019-05-22] MEDS: PHENERGAN IV PRN ×3 (07:44→20:29)
[2019-05-22 08:05] LABS: CALCIUM 7.6 mg/dL (8.8-10.2); CREATININE 1.8 mg/dL (0.5-0.9); MAGNESIUM 1.6 mg/dL (1.5-2.7); PHOSPHORUS 2.8 mg/dL (2.7-4.5); POTASSIUM 2.8 mmol/L (3.5-5.1)
[2019-05-22] MEDS: D5 1/2 NS + KCL 40 MEQ 1,000 ML IV SCH ×2 (11:21→20:28)
[2019-05-22] MEDS ORDERED: ERYTHROMYCIN 500 MG in NS 250 ML IV SCH (14:00)
--- NOTE | 2019-05-22 14:19 | PROGRESS NOTE ---
DATE: 05/22/2019 SUBJECTIVE: The patient has no major complaints. OBJECTIVE: Vital Signs: BP 110/81, heart rate 93, respiratory rate 18, temperature 97 degrees, satting 100% on room air. Cardiovascular: Regular rate and rhythm. Pulmonary: Bilateral breath sounds. Clear to auscultation. GI: Soft, nontender, nondistended. Bowel sounds are positive. LABORATORY DATA: White count 4.0, hemoglobin 8.8, hematocrit 27, platelets 216. Sodium 149, potassium 2.8, creatinine 1.8. PROBLEM LIST: 1. Gastroparesis with persistent intractable nausea, vomiting. Nursing staff reports that she is keeping containers of her emesis, but then her family consistently brings her food. She denies eating it, but then she does have nausea, vomiting subsequently. It is very unclear. She is not diabetic. I do not understand why she is not on Reglan long-term, but I am going to order Reglan, and we will see how she does. 2. Hypokalemia is persistent. We will continue to supplement and follow. Continue intravenous fluids. 3. Hypernatremia in the setting of chronic renal failure stage III-B. We will change her fluids and monitor. DISPOSITION: Pending her clinical status. cc: Jermain Gregory MD
[2019-05-22] MEDS: REGLAN IV SCH (14:42)
[2019-05-22] MEDS: POTASSIUM CHLORIDE 20 MEQ/SWI 20 MEQ/100 ML IVPB IV SCH ×2 (14:42→16:18)
[2019-05-22] MEDS: PROTONIX IV SCH (17:17)
[2019-05-22] MEDS: SODIUM CHLORIDE 0.9% INJ SCH (20:29)
[2019-05-23] MEDS: MORPHINE IV PRN ×4 (00:17→17:09)
[2019-05-23] MEDS: REGLAN IV SCH ×4 (00:17→22:14)
[2019-05-23] MEDS: D5 1/2 NS + KCL 40 MEQ 1,000 ML IV SCH (04:02)
[2019-05-23] MEDS: PHENERGAN IV PRN ×3 (04:02→20:24)
[2019-05-23 07:21] LABS: BASO# 0.02 X1000 (0.0-0.2); BASO% 0.5 % (0.0-0.8); EOS# 0.15 X1000 (0.0-0.7); EOS% 3.4 % (0.0-10.0); HEMATOCRIT 24.9 % (37.0-47.0); IMM GRAN# 0.01 X1000 (0.0-0.04); IMM GRAN% 0.2 % (0.0-0.5); LYMPH# 1.85 X1000 (1.2-3.4); MCH 26.8 PG (27-31); MCHC 32.1 g/dL (33-37); MCV 83.6 FL (81-99); MONO% 9.1 % (1.7-9.3); MPV 13.3 FL (7.4-10.4); NEUT# 1.98 X1000 (1.4-6.5); NEUT% 44.8 % (42.2-75.2); PLT 188 X1000 (130-400); RBC 2.98 XMIL (4.2-5.4); RDW 18.9 % (11.5-14.5); WBC 4.41 X1000 (4.8-10.8)
[2019-05-23 07:36] LABS: CALCIUM 7.2 mg/dL (8.8-10.2); CREATININE 1.7 mg/dL (0.5-0.9); POTASSIUM 4.2 mmol/L (3.5-5.1)
[2019-05-23] MEDS: SODIUM CHLORIDE 0.9% INJ SCH ×3 (10:17→17:48)
--- NOTE | 2019-05-23 16:12 | PROGRESS NOTE ---
DATE: 05/23/2019 SUBJECTIVE: She says she is still vomiting. She is still somewhat sleepy. As far as I can tell, she is not throwing up large amounts, she is kind of spitting up her oral secretions, so it is not like she has projectile vomiting. OBJECTIVE DATA: Vital signs: Blood pressure is 135/93, heart rate of 90, respiratory rate 20, temperature 98 degrees, satting 100% on room air. Cardiovascular: Regular rate and rhythm. Pulmonary: Bilateral breath sounds. Clear to auscultation. GI: Soft, nontender, nondistended. Bowel sounds were positive. She denies any bowel movement for the last 3 days; of course, she really has not been eating very much. LABORATORY DATA: White count is 4, hemoglobin and hematocrit 8 and 24, platelets 188. Basic was normal. Creatinine 1.7. Her glucose did jump up to 202, which is curious. ASSESSMENT AND PLAN: 1. Gastroparesis. We will continue Reglan and see how she does. I am going to get plain films of her stomach to make sure we are not dealing with ileus or any other process such as that. We may have to get a Gastroenterology opinion if we really cannot get her much better. 2. Relative hyperglycemia. As far as I know, she is not diabetic. We will check an A1c and check her sugars. She is not getting any intravenous fluids, but we will continue those and follow. DISPOSITION: Pending her clinical status. cc: Jermain Gregory MD
[2019-05-23] MEDS: NS 1,000 ML IV SCH (17:07)
[2019-05-23] MEDS: PROTONIX IV SCH (17:48)
--- NOTE | 2019-05-23 18:31 | Diag Imaging Result Doc PS360 ---
ABDOMEN FLAT/UPRIGHT - 05/23/2019 INDICATION: pain, nausea/emesis COMPARISON: 02/27/2019 FINDINGS: Stable IUD in the pelvis. Stable implanted device. Stable cholecystectomy clips. There is a nonobstructive bowel gas pattern. No free air or abnormal calcifications. No constipation. IMPRESSION: No acute disease. Electronically signed by Chapito Duran 05/23/2019 6:29 PM
[2019-05-23 19:18] LABS: ALBUMIN 2.4 g/dL (3.5-5.0); CALCIUM 7.6 mg/dL (8.8-10.2); CREATININE 1.7 mg/dL (0.5-0.9); TOTAL BILIRUBIN 0.5 mg/dL (0.20-1.00); TOTAL PROTEIN 4.9 g/dL (6.3-8.3)
[2019-05-24] MEDS: MORPHINE IV PRN ×4 (03:26→18:34)
[2019-05-24] MEDS: REGLAN IV SCH ×4 (03:26→22:23)
[2019-05-24] MEDS: NS 1,000 ML IV SCH ×2 (03:27→14:19)
[2019-05-24 06:54] LABS: BASO# 0.01 X1000 (0.0-0.2); BASO% 0.3 % (0.0-0.8); EOS# 0.12 X1000 (0.0-0.7); EOS% 3.4 % (0.0-10.0); HEMATOCRIT 23.9 % (37.0-47.0); HEMOGLOBIN 7.6 g/dL (12.0-16.0); IMM GRAN# 0.01 X1000 (0.0-0.04); IMM GRAN% 0.3 % (0.0-0.5); LYMPH# 1.54 X1000 (1.2-3.4); LYMPH% 44.3 % (20.5-51.1); MCH 26.8 PG (27-31); MCHC 31.8 g/dL (33-37); MCV 84.2 FL (81-99); MONO# 0.22 X1000 (0.11-0.59); MONO% 6.3 % (1.7-9.3); MPV 12.5 FL (7.4-10.4); NEUT# 1.58 X1000 (1.4-6.5); NEUT% 45.4 % (42.2-75.2); PLT 169 X1000 (130-400); RBC 2.84 XMIL (4.2-5.4); RDW 18.9 % (11.5-14.5); WBC 3.48 X1000 (4.8-10.8)
[2019-05-24 07:06] LABS: HEMOGLOBIN A1C 5.4 % (4.8-6.0)
[2019-05-24] MEDS: PHENERGAN IV PRN ×2 (10:58→18:34)
[2019-05-24 13:06] LABS: HEMATOCRIT 24.8 % (37.0-47.0); HEMOGLOBIN 7.9 g/dL (12.0-16.0)
[2019-05-24] MEDS: SODIUM CHLORIDE 0.9% INJ SCH (18:26)
[2019-05-24] MEDS: PROTONIX IV SCH (18:26)
--- NOTE | 2019-05-24 20:45 | PROGRESS NOTE ---
DATE: 05/24/2019 SUBJECTIVE: Patient has no focal complaints. OBJECTIVE: Vital signs: Blood pressure is 114/46, heart rate of 50, respiratory rate of 16, temperature 97.8 degrees. Cardiovascular: Regular rate and rhythm. Pulmonary: Bilateral breath sounds clear to auscultation. Gastrointestinal: Soft, nontender, nondistended. Bowel sounds are positive. LABORATORY DATA: Hemoglobin is 7.9 [address] 24. Rest of the tests look normal. Creatinine 1.7. PROBLEM LIST: 1. Gastroparesis. We will continue Reglan. We will continue to follow. Continue to monitor. She is still having nausea, although there is no recorded nausea or vomiting. 2. Hyperglycemia. We will continue to monitor closely. 3. Hypokalemia is persistent. 4. Chronic renal failure stage 2. We will continue to monitor. DISPOSITION: Pending clinical status. She has a retained IUD. I am not entirely sure that may not be related to her bleeding. May get a IMPOSER opinion and follow. Continue to monitor. cc: Jermain Gregory MD MTDD
[2019-05-25] MEDS: NS 1,000 ML IV SCH (00:36)
[2019-05-25] MEDS: MORPHINE IV PRN ×3 (00:36→12:54)
[2019-05-25] MEDS: PHENERGAN IV PRN ×2 (01:12→08:00)
[2019-05-25] MEDS: REGLAN IV SCH ×2 (03:40→12:55)
--- NOTE | 2019-05-25 05:34 | CONSULTATION ---
DATE OF CONSULTATION: 05/24/2019 REQUESTING PHYSICIAN: Dr. Jimmy Gregory. REASON FOR CONSULTATION: "Retained IUD, menorrhagia, and anemia." HISTORY OF PRESENT ILLNESS: A 43-year-old G1, P1-0-0-1 female, apparently well known to the hospitalist service, admitted for cyclical vomiting. During the course of her stay, patient had vaginal bleeding. A CT scan of the abdomen and pelvis was done upon admission, with report indicating a possibly malpositioned intrauterine device.Subsequent pelvic ultrasound report done on 05/21/2019 indicated an intrauterine device located in the cervix. The patient reports having abnormal uterine bleeding that started 2 days ago. The patient reports her bleeding was initially heavy, in which she saturated about 10 pads approximately 50% saturated. Her bleeding, however, lightened since 2 days ago and reports of having no further vaginal bleeding today. The patient reports she has not had any prior menses for about 2 years. The patient reports with the acute vaginal bleeding, she had some dysmenorrhea, and which has now resolved. Patient also reports that she was not aware of still having a Mirena IUD, reporting the [place] was [place], after the delivery of her baby. The patient denied of any fever, chills, further vaginal bleeding, dysmenorrhea, constipation, diarrhea, dysuria, hematuria, hematochezia, or melena. The patient denies of any history of STDs or HIV. The patient denied any abnormal Pap smears. The patient reports she is not sexually active. The patient reports she does have a primary care doctor at the [facility] a Dr. Seth Jimenes. She reports, however, she has not seen an DIRECTOR DIGITAL CATALOGUE in years. PAST MEDICAL HISTORY: 1. Gastroparesis with a gastric pacemaker by Dr. Stanford at [facility] in 2014. 2. Type 2 diabetes, noncompliance with medication. 3. Insomnia. 4. Chronic kidney disease stage 3. 5. Hypertension. 6. Esophageal strictures with frequent dilations. 7. History of gastritis. 8. Intractable nausea, vomiting. 9. Dysphagia secondary to strictures. PAST SURGICAL HISTORY: 1. Laparoscopic cholecystectomy. 2. Gastric pacemaker. 3. Port-A-Cath placement. 4. Esophageal dilation and G-tube placement. PAST OBSTETRICAL HISTORY: G1, P1-0-0-1. Denied history of any miscarriages or abortions. Spontaneous vaginal delivery. No apparent complications. 9 pounds. GYNECOLOGIC HISTORY: Denied history of STDs or HIV. Not sexually active. Denied history of abnormal Pap smear. Reports last Pap smear done February 2017, normal per patient done at the [facility] in [place]. Patient denied having done any annual mammograms. FAMILY HISTORY: Noncontributory. SOCIAL HISTORY: Denied any tobacco, alcohol, or illicit drug use. Reports history of smoking marijuana, but reports she no longer smokes. MEDICATIONS: The patient states she no longer takes any medications on a routine basis. She denies any current medications taken at home. ALLERGIES: No known drug allergies. PHYSICAL EXAMINATION: Vital signs: Temperature 98 degrees, heart rate 94, respirations 16, blood pressure 120/82. SpO2 is 100% on room air. BMI 19.4. General: No apparent distress. Cardiovascular: Regular rate and rhythm. Pulmonary: Clear to auscultation bilaterally. No rhonchi, wheezing, or rales. Abdomen: Soft, nontender, nondistended. Active bowel sounds. Well healed prior surgical scars. No rebound tenderness. Extremities: No lower extremity tenderness on palpation. Pelvic: Deferred for now per patient request. CURRENT LABORATORY: White blood cell count 3.48, hemoglobin 7.9, hematocrit 24.8, platelet 169,000. Hemoglobin A1c 5.4. Sodium 140, potassium 4.0, chloride 118, CO2 of 14, BUN 4, creatinine 1.7. Calcium 7.6, total bilirubin 0.5, AST 21, ALT 10, lipase 47 on 05/20/2019. UDS presumptive positive for opiates on 05/30/2019. TSH and serum hCG pending. IMAGING DATA: CT of the abdomen and pelvis on 05/20/2019. Impression: Stable and indeterminate placement of the IUD. Otherwise, no acute process. Pelvic ultrasound on 05/21/2019. Impression: Intrauterine device located in the cervix. Endometrial thickness 9 mm. Uterus 8.4 x 4.5 x 3.5 cm in size. (CT and US imaging was also reviewed by myself as well, and I agree with the reports) ASSESSMENT AND PLAN: A 43-year-old G1, P1-0-0-1 with: 1. Abnormal uterine bleeding (AUB) -The differential diagnosis of abnormal uterine bleeding is vast, including structural vs nonstructural causes. Structural causes can be polyps, adenomyosis, leiomyoma, malignancy or hyperplasia. Nonstructural causes can be coagulopathy, ovulatory dysfunction, endometrial, iatrogenic, or not otherwise classified. Given the patient's age, infrequent menses, BMI, and normal sized uterus noted on US, I suspect patient is ansley-menopausal and her AUB is due to ovulatory dysfunction. -Given the patient's report that her intrauterine device was placed over 21 years ago, and that it was a Mirena device, recommend removal of IUD, especially considering that it is malpositioned and in the cervix. Will defer removal until the patient is discharged. -I discussed with the patient an endometrial biopsy is strongly recommended to evaluate the endometrium and to rule out any possible endometrial malignancy or hyperplasia as the cause of her AUB, comfort considering her endometrial stripe being >0.4mm. -In addition to the endometrial biopsy to be done outpatient, a TSH and hCG were ordered to evaluate for any thyroid disease and . -Recommend pad counts to quantify any further vaginal bleeding. -Records were requested from the [facility] to determine when the patient had her IUD 2. Anemia. -The patient's hemoglobin and hematocrit was trended and reviewed over the past couple years. The patient was noted to be anemic for a vast majority of time throughout this period. Given that patient has had very few menses, I do not suspect that her anemia is primarily due to her menses. If the patient's vaginal bleeding resumes and is heavy, we will consider initiation of p.o. progestin medication. -Consider Heme Onc consultation to work up patient's chronic anemia [facility]
[2019-05-25 06:47] LABS: BASO# 0.02 X1000 (0.0-0.2); BASO% 0.4 % (0.0-0.8); EOS# 0.18 X1000 (0.0-0.7); EOS% 3.6 % (0.0-10.0); HEMATOCRIT 26.3 % (37.0-47.0); HEMOGLOBIN 8.4 g/dL (12.0-16.0); LYMPH# 2.12 X1000 (1.2-3.4); LYMPH% 42.7 % (20.5-51.1); MCH 26.9 PG (27-31); MCHC 31.9 g/dL (33-37); MCV 84.3 FL (81-99); MONO# 0.31 X1000 (0.11-0.59); MONO% 6.2 % (1.7-9.3); MPV 12.4 FL (7.4-10.4); NEUT# 2.34 X1000 (1.4-6.5); NEUT% 47.1 % (42.2-75.2); PLT 190 X1000 (130-400); RBC 3.12 XMIL (4.2-5.4); RDW 19.4 % (11.5-14.5); WBC 4.97 X1000 (4.8-10.8)
[2019-05-25 07:14] LABS: CALCIUM 7.3 mg/dL (8.8-10.2); CREATININE 1.8 mg/dL (0.5-0.9)
[2019-05-25 11:34] VITALS: BP 133/93
--- NOTE | 2019-05-25 12:53 | OB/GYN PROGRESS NOTE ---
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 Progress Note: Vital Signs - 24 hr 05/24/19 15:54 05/24/19 15:58 05/24/19 19:42 Temperature 97.9 F 97.8 F 98.0 F Pulse Rate 90 50 L 94 H Respiratory Rate 16 16 16 Blood Pressure 113/77 114/46 120/82 O2 Sat by Pulse Oximetry 100 98 100 05/24/19 23:44 05/25/19 04:00 05/25/19 07:31 Temperature 98.0 F 97.8 F 97.7 F Pulse Rate 96 H 92 H 93 H Respiratory Rate 16 16 16 Blood Pressure 112/87 125/92 135/95 O2 Sat by Pulse Oximetry 100 100 100 05/25/19 11:32 Temperature 98.1 F Pulse Rate 92 H Respiratory Rate 18 Blood Pressure 133/93 O2 Sat by Pulse Oximetry 100 Laboratory Results - last 24 hr 05/23/19 05/24/19 05/25/19 17:50 11:50 06:27 WBC RBC Hgb 7.9 L Hct 24.8 L MCV MCH MCHC RDW Std Deviation Plt Count MPV Immature Gran % (Auto) Neut % (Auto) Lymph % (Auto) Yell % (Auto) Eos % (Auto) Baso % (Auto) Immature Gran # (Auto) Neut # (Auto) Lymph # (Auto) Yell # (Auto) Eos # (Auto) Baso # (Auto) Sodium 142 Potassium 4.0 Chloride 119 H Carbon Dioxide 15 L Anion Gap 8 BUN 2 L Creatinine 1.8 H Estimated GFR/1.73 m2 30 BUN/Creatinine Ratio 1 Glucose 82 Calculated Osmolality 278 Calcium 7.3 L TSH Serum , Qual NEGATIVE 05/25/19 05/25/19 06:27 06:27 WBC 4.97 RBC 3.12 L Hgb 8.4 L Hct 26.3 L MCV 84.3 MCH 26.9 L MCHC 31.9 L RDW Std Deviation 19.4 H Plt Count 190 MPV 12.4 H Immature Gran % (Auto) 0.0 Neut % (Auto) 47.1 Lymph % (Auto) 42.7 Yell % (Auto) 6.2 Eos % (Auto) 3.6 Baso % (Auto) 0.4 Immature Gran # (Auto) 0.00 Neut # (Auto) 2.34 Lymph # (Auto) 2.12 Yell # (Auto) 0.31 Eos # (Auto) 0.18 Baso # (Auto) 0.02 Sodium Potassium Chloride Carbon Dioxide Anion Gap BUN Creatinine Estimated GFR/1.73 m2 BUN/Creatinine Ratio Glucose Calculated Osmolality Calcium TSH 1.41 Serum , Qual Patient without complaints. Reports of no vaginal bleeding overnight. Denied of abdominal pain O: Gen: NAD; AAOx3 Pelvic: grossly normal appearing external genitalia; ruggated vagina; no blood noted in vaginal vault; cervix normal appearing in size; IUD strings visualized via os; no cervical motion tenderness; cervix mobile; uterus non-TTP; no adnexal TTP bilaterally; no adnexal masses palpated ASSESSMENT AND PLAN: A 43-year-old G1, P1-0-0-1 with: 1. Abnormal uterine bleeding (AUB) -TSH wnl; hcg negative -Suspect AUB is due to ovulatory dysfunction. -Strongly recommend patient f/u outpatient for an endometrial biopsy and IUD removal. -Recommend to call clinic or return to hospital if she has heavy bleeding or significant abdominal/pelvic pain 2. Anemia. -If the patient's vaginal bleeding resumes and is heavy, consider initiation of p.o. progestin medication. -Consider Heme Onc consultation to work up patient's chronic anemia
--- NOTE | 2019-05-25 22:29 | INFECTIOUS DISEASE PROGRESS NO ---
DATE: 05/25/2019 SUBJECTIVE: The patient is tolerating some of her meals. She ate about 50%. No throwing up that we are aware of. She kind of spits up a little bit. She seems to be doing okay. PHYSICAL EXAMINATION: Exam is unremarkable. LABS: White count is 4, hemoglobin and hematocrit 8 and 26, platelets 190,000. TSH normal. test normal. PLAN: Discharge today. She does have an IUD that will be taken out as an outpatient per the supervisor blood donor recruiters service. We will make sure she has follow-up there. cc: Jermain Gregory MD
--- NOTE | 2019-05-26 03:54 | DISCHARGE SUMMARY ---
ADMISSION DATE: 05/20/2019 DISCHARGE DATE: 05/25/2019 PRIMARY CARE PHYSICIAN: Listed as none. ADMISSION DIAGNOSES: 1. Cyclical vomiting. 2. Hypokalemia. 3. Mild acute kidney injury on chronic kidney disease stage 3. 4. Gastroparesis status post gastric pump. 5. Pacemaker placement. DISCHARGE DIAGNOSES: 1. Gastroparesis. 2. Hyperglycemia. 3. Hypokalemia persistent, but now resolved. 4. Chronic renal failure stage 2. SUMMARY OF FINDINGS: This is a 43-year-old female who is well known to the hospitalist service. Presented to the ER with complaints of nausea, vomiting, and lower abdominal pain for 2 days that progressively worsened. Workup showed her potassium to be a 1.7, creatinine of 2, which was up from her baseline ranging around 1.4 to 1.7. We did do a CT of the abdomen and pelvis. There was no acute process, but it did state that she had an indeterminate placement of an IUD, which she states that she did not have an IUD in place currently, but this may be the cause of some of her bleeding. She had a pelvic ultrasound that showed intrauterine device located at the cervix. No adrenal mass. No free fluid. We did an abdomen x-ray on 05/23/2019 that showed no acute disease. She is now tolerating a clear liquid diet with Ensure t.i.d. with meals. We consulted RESPIRATORY CLINICIAN due to the abnormal uterine bleeding and the retained IUD. They have requested records from [facility] to determine when she had her IUD. They felt that she would most likely need a Hematology/Oncology consult to work up her chronic anemia, but it is now felt that she can safely be discharged home. DISCHARGE MEDICATIONS: Reglan 10 mg p.o. before meals and at bedtime, omeprazole 40 mg p.o. daily, and Zofran 4 mg p.o. q.6 hours p.r.n. FOLLOWUP: She will follow up with her primary care physician in the next 1 to 2 weeks. Will follow up with [facility] for discussion of removing her IUD. It is noted the patient stated that in the past she has had some cyclical vomiting from marijuana use, but that she had quit doing marijuana and her urine drug screen indeed showed none detected of cannabinoids at this time so we will continue with our plan of care and she will be discharged home in stable condition. All discharge instructions have been reviewed with the patient and she verbalized understanding. TIME SPENT: This is a 35 minute discharge. Dictated by NELL Scales for Jermain Gregory MD cc: NELL Scales MD Jiten Patel, MD
== END 2019-05-25 14:10 | disposition home health service (06) | DRG 74 ==
LOC: P.ED 08:41 → P.ICU 17:16 → SUATTDRO 17:16 → P.MEDSURG 05-21 15:40
PROVIDERS: ATTEND Internal Medicine

== ENCOUNTER 2019-06-09 16:37 | Inpatient (IN) ==
[2019-06-09 17:37] LABS: BASO# 0.03 X1000 (0.0-0.2); BASO% 0.6 % (0.0-0.8); EOS# 0.05 X1000 (0.0-0.7); EOS% 0.9 % (0.0-10.0); HEMATOCRIT 31.6 % (37.0-47.0); IMM GRAN# 0.01 X1000 (0.0-0.04); IMM GRAN% 0.2 % (0.0-0.5); LYMPH# 1.87 X1000 (1.2-3.4); MCHC 34.8 g/dL (33-37); MCV 77.6 FL (81-99); MONO# 0.31 X1000 (0.11-0.59); MONO% 5.8 % (1.7-9.3); MPV 12.1 FL (7.4-10.4); NEUT# 3.08 X1000 (1.4-6.5); NEUT% 57.5 % (42.2-75.2); PLT 437 X1000 (130-400); RBC 4.07 XMIL (4.2-5.4); RDW 17.7 % (11.5-14.5); WBC 5.35 X1000 (4.8-10.8)
[2019-06-09 18:26] LABS: ALBUMIN 3.3 g/dL (3.5-5.0); CALCIUM 8.5 mg/dL (8.8-10.2); CREATININE 1.5 mg/dL (0.5-0.9); POTASSIUM 1.8 mmol/L (3.5-5.1); TOTAL BILIRUBIN 1.1 mg/dL (0.20-1.00); TOTAL PROTEIN 6.3 g/dL (6.3-8.3)
[2019-06-09] MEDS ORDERED: SODIUM CHLORIDE 0.9% INJ ONE ×2 (18:42→23:13)
[2019-06-09] MEDS ORDERED: PHENERGAN IV ONE (18:42)
[2019-06-09] MEDS ORDERED: POTASSIUM CHLORIDE 20 MEQ/SWI 20 MEQ/100 ML IVPB IV ONE ×2 (18:45→18:49)
--- NOTE | 2019-06-09 19:00 | PROVIDER DOCUMENTATION ---
This chart was entered by Angelina Kee Scribe, acting as scribe for Charles Adrian MD. HPI-Abdominal Pain/GI Problem - General Source: patient - History of Present Illness-ABD Nature of Presenting Problems: pt is a 43 yr old female presenting via EMS with 3 day complaint of abdominal pain, nausea and vomiting. pt reports hx of gastroparesis, recent admit due to hypokalemia. pt denies fever, chills, no diarrhea. pt spitting thick sputum. Abdominal Pain Onset Location: reports: generalized abdomen Pain Radiation: reports: no radiation Quality of Pain: reports: aching, cramping Severity in ED: reports: severe Onset/Duration: reports: 3 days ago Timing: reports: still present, getting worse Activities at Onset: reports: rest Exposure to sick contacts?: No Modifying Factors: improves with: nothing Associated Symptoms: reports: nausea, vomiting. denies: diarrhea, fever/chills, genitourinary problems, shortness of breath Last BM: unsure Dark Stools Present?: reports: none noticed Rectal Bleeding: reports: none Rectal Pain: reports: none Emesis Description: reports: clear Bruising or Bleeding Gums?: No Similar Symptoms Previously?: Yes Recently seen or treated by another doctor?: Yes <Charles Adrian - Last Filed: 06/09/19 19:01> <Gamaliel Brandon - Last Filed: 06/09/19 21:19> - General Chief Complaint: Nausea/Vomiting Stated Complaint: ABD PAIN N/V Time Seen by Provider: 06/09/19 18:30 Allergies/Adverse Reactions: Patient Allergies Allergy/AdvReac Type Severity Reaction Status Date / Time No Known Allergies Allergy Verified 02/12/19 10:46 Home Medications: Home Medication List Medication Instructions Recorded Confirmed Last Taken Type Metoclopramide [Reglan] 10 mg PO AC + HS #120 tab 05/25/19 06/09/19 Unknown Rx Ondansetron Odt [Zofran 4 mg Odt] 4 mg PO Q6H PRN PRN #25 tab 05/25/19 06/09/19 Unknown Rx Pantoprazole [Protonix] 1 tab PO DAILY 06/09/19 06/09/19 Unknown History Review of Systems - Adult - REVIEW OF SYSTEMS - ADULT Constitutional: reports: eduardo. denies: chills, fever Eyes: reports: no symptoms reported Ears, Nose, Mouth & Throat: reports: no symptoms reported Cardiovascular: denies: chest pain, palpitations, syncope Respiratory: reports: excessive sputum production. denies: shortness of breath Gastrointestinal: reports: abdominal pain, nausea, vomiting. denies: diarrhea Genitourinary: reports: no symptoms reported Musculoskeletal: reports: muscle aches, muscle weakness Integumentary: reports: no symptoms reported Neurological: denies: dizziness/vertigo, headache/migraines Psychiatric: reports: no symptoms reported Endocrine: reports: no symptoms reported Hematologic/Lymphatic: reports: no symptoms reported Allergic/Immunologic: reports: no symptoms reported All Other Systems: Reviewed and Negative <Charles Adrian - Last Filed: 06/09/19 19:01> Past History - Adult - PAST MEDICAL HISTORY-ADULT Review of Records: reports: Old Records Reviewed, Nursing Assessment Review, Medications Reviewed, Social history reviewed & non-contributory. Major Childhood Illnesses: reports: denies history Cardiovascular: reports: HTN, hyperlipidemia Respiratory: reports: denies history Gastrointestinal: reports: GERD (with esophagitis and stenosis), GI bleed, ulcer , other (diabetic gastroparesis, erosive gastritis and esophagitis; gastric pacemaker) Obstetrical/Gynecological: reports: denies history Genitourinary: reports: kidney disease, other (ammenorrhea for 1 year) Musculoskeletal: reports: denies history Neurological: reports: other (DM neuropathy) Psychiatric: reports: anxiety, depression Endocrine/Immune: reports: anemia, Diabetes Other Conditions: reports: denies history Additional History: frequent ER visits - PRIOR SURGERIES/PROCEDURES Surgical/Procedure History: reports: cholecystectomy, indwelling device (Portacath), other (gastric stimulator) - IMMUNIZATION STATUS Childhood Immunizations: See Nurse Assessment Flu Vaccine: See Nurse Assessment - FAMILY HISTORY Family History: reviewed, not pertinent - SOCIAL HISTORY Smoking: denies Substance Use: alcohol Alcohol Use Frequency: occasionally Living Situation: family <Charles Adrian - Last Filed: 06/09/19 19:01> Physical Exam-General - PHYSICAL EXAM-ADULT Initial Vital Signs Reviewed: Yes - CONSTITUTIONAL General Appearance: alert, no apparent distress, thin - EYES Eyes: PERRL/EOMI - HEAD, EARS, NOSE, MOUTH & THROAT HENMT: normocephalic/atraumatic, moist mucous membranes, normal ENT inspection - NECK Neck: non-tender, full range of motion, supple, normal inspection - RESPIRATORY Respiratory: lungs clear, normal breath sounds - CARDIOVASCULAR Cardiovascular: normal peripheral pulses, regular rate, rhythm, no edema - GASTROINTESTINAL (ABDOMEN) Abdominal Exam: normal bowel sounds, soft, tenderness (general) - LYMPHATIC Lymphatic: no adenopathy - MUSCULOSKELETAL Back Exam: normal inspection Extremity: normal range of motion, non-tender, normal inspection - SKIN Integumentary: normal color, normal turgor, warm/dry - NEUROLOGIC Neurologic: grossly normal - PSYCHIATRIC Psych/Mental Status: normal mood/affect <Charles Adrian - Last Filed: 06/09/19 19:01> Progress - PLAN OF CARE/RESULTS Progress/Plan/Lab Results: Vital Signs - 8 hr 06/09/19 16:45 06/09/19 16:46 Temperature 98.7 F Pulse Rate 116 H Respiratory Rate 20 Blood Pressure 182/143 O2 Sat by Pulse Oximetry 100 Laboratory Results - last 24 hr 06/09/19 06/09/19 06/09/19 17:05 17:05 17:05 WBC 5.35 RBC 4.07 L Hgb 11.0 L Hct 31.6 L MCV 77.6 L MCH 27.0 MCHC 34.8 RDW Std Deviation 17.7 H Plt Count 437 H MPV 12.1 H Immature Gran % (Auto) 0.2 Neut % (Auto) 57.5 Lymph % (Auto) 35.0 [place] % (Auto) 5.8 Eos % (Auto) 0.9 Baso % (Auto) 0.6 Immature Gran # (Auto) 0.01 Neut # (Auto) 3.08 Lymph # (Auto) 1.87 [place] # (Auto) 0.31 Eos # (Auto) 0.05 Baso # (Auto) 0.03 Sodium Cancelled Potassium Cancelled Chloride Cancelled Carbon Dioxide Cancelled Anion Gap Cancelled BUN Cancelled Creatinine Cancelled Estimated GFR/1.73 m2 Cancelled BUN/Creatinine Ratio Cancelled Glucose Cancelled Calculated Osmolality Cancelled Calcium Cancelled Total Bilirubin Cancelled AST Cancelled ALT Cancelled Alkaline Phosphatase Cancelled Total Protein Cancelled Albumin Cancelled Globulin Cancelled Albumin/Globulin Ratio Cancelled Amylase 179 Lipase Cancelled 06/09/19 17:57 WBC RBC Hgb Hct MCV MCH MCHC RDW Std Deviation Plt Count MPV Immature Gran % (Auto) Neut % (Auto) Lymph % (Auto) [place] % (Auto) Eos % (Auto) Baso % (Auto) Immature Gran # (Auto) Neut # (Auto) Lymph # (Auto) [place] # (Auto) Eos # (Auto) Baso # (Auto) Sodium 145 Potassium 1.8 L* Chloride 108 H Carbon Dioxide 21 L Anion Gap 16 BUN 3 L Creatinine 1.5 H Estimated GFR/1.73 m2 38 BUN/Creatinine Ratio 2 Glucose 131 H Calculated Osmolality 287 Calcium 8.5 L Total Bilirubin 1.10 H AST 21 ALT 12 Alkaline Phosphatase 99 Total Protein 6.3 Albumin 3.3 L Globulin 3.0 Albumin/Globulin Ratio 1.0 Amylase Lipase 28 Orders Category Date Time Status Saline Loc DIRECTED Care 06/09/19 17:23 Active NPO Diet 06/09/19 17:23 Active AMYLASE [CHEM] Stat Lab 06/09/19 17:05 Completed CBC WITH ELECTRONIC DIFF [HEME] Stat Lab 06/09/19 17:05 Completed COMPREHENSIVE METABOLIC PANEL [CHEM] Routine Lab 06/09/19 17:57 Completed LIPASE [CHEM] Routine Lab 06/09/19 17:[address] W/POSS RFLX CULT [URINALYSIS] Stat Lab 06/09/19 17:23 Uncollected Result Diagrams: 06/09/19 17:05 06/09/19 17:57 - EKG 1 Time of EKG reading by physician:: 18:44 EKG Read and Signed by:: Charles Adrian EKG Interpretation (*Must complete 3 of following elements*): Abnormal (t wave abnormality-consider anterior ischemia) Rate: 83 Rhythm: nsr [place]: normal QRS: normal VT Interval: normal <Charles Adrian - Last Filed: 06/09/19 19:01> - PLAN OF CARE/RESULTS Progress/Plan/Lab Results: Vital Signs - 8 hr 06/09/19 16:45 06/09/19 16:46 06/09/19 17:15 Temperature 98.7 F Pulse Rate 116 H 80 Respiratory Rate 20 19 Blood Pressure 182/143 135/96 O2 Sat by Pulse Oximetry 100 100 06/09/19 18:00 06/09/19 18:30 06/09/19 19:19 Temperature Pulse Rate 77 68 92 H Respiratory Rate 15 12 20 Blood Pressure 108/79 117/87 108/82 O2 Sat by Pulse Oximetry 100 100 97 Laboratory Results - last 24 hr 06/09/19 06/09/19 06/09/19 17:05 17:05 17:05 WBC 5.35 RBC 4.07 L Hgb 11.0 L Hct 31.6 L MCV 77.6 L MCH 27.0 MCHC 34.8 RDW Std Deviation 17.7 H Plt Count 437 H MPV 12.1 H Immature Gran % (Auto) 0.2 Neut % (Auto) 57.5 Lymph % (Auto) 35.0 [place] % (Auto) 5.8 Eos % (Auto) 0.9 Baso % (Auto) 0.6 Immature Gran # (Auto) 0.01 Neut # (Auto) 3.08 Lymph # (Auto) 1.87 [place] # (Auto) 0.31 Eos # (Auto) 0.05 Baso # (Auto) 0.03 Sodium Cancelled Potassium Cancelled Chloride Cancelled Carbon Dioxide Cancelled Anion Gap Cancelled BUN Cancelled Creatinine Cancelled Estimated GFR/1.73 m2 Cancelled BUN/Creatinine Ratio Cancelled Glucose Cancelled Calculated Osmolality Cancelled Calcium Cancelled Magnesium Total Bilirubin Cancelled AST Cancelled ALT Cancelled Alkaline Phosphatase Cancelled Total Protein Cancelled Albumin Cancelled Globulin Cancelled Albumin/Globulin Ratio Cancelled Amylase 179 Lipase Cancelled Urine Source Urine Color Urine Clarity Urine pH Ur Specific [place] Urine Protein Urine Ketones Urine Blood Urine Nitrite Urine Bilirubin Urine Urobilinogen Urine Microscopic RBC Urine WBC Urine Microscopic WBC Ur Epithelial Cells Urine Bacteria Urine Glucose 06/09/19 06/09/19 06/09/19 17:57 17:57 19:12 WBC RBC Hgb Hct MCV MCH MCHC RDW Std Deviation Plt Count MPV Immature Gran % (Auto) Neut % (Auto) Lymph % (Auto) [place] % (Auto) Eos % (Auto) Baso % (Auto) Immature Gran # (Auto) Neut # (Auto) Lymph # (Auto) [place] # (Auto) Eos # (Auto) Baso # (Auto) Sodium 145 Potassium 1.8 L* Chloride 108 H Carbon Dioxide 21 L Anion Gap 16 BUN 3 L Creatinine 1.5 H Estimated GFR/1.73 m2 38 BUN/Creatinine Ratio 2 Glucose 131 H Calculated Osmolality 287 Calcium 8.5 L Magnesium 1.7 Total Bilirubin 1.10 H AST 21 ALT 12 Alkaline Phosphatase 99 Total Protein 6.3 Albumin 3.3 L Globulin 3.0 Albumin/Globulin Ratio 1.0 Amylase Lipase 28 Urine Source CLEAN CATCH Urine Color YELLOW Urine Clarity SLIGHTLY HAZY A Urine pH 6.5 Ur Specific [place] 1.010 Urine Protein 1+(30 mg/dL) A Urine Ketones TRACE Urine Blood NEGATIVE Urine Nitrite NEGATIVE Urine Bilirubin NEGATIVE Urine Urobilinogen 1 Urine Microscopic RBC Not Reportable Urine WBC TRACE A Urine Microscopic WBC <10 Ur Epithelial Cells >10 Urine Bacteria 1+ Urine Glucose NEGATIVE Orders Category Date Time Status Admit - [facility] Routine AdmDCTranf 06/09/19 21:10 Active Activity - Strict Bedrest ORDERED Care 06/09/19 21:09 Active Nursing- MD Consult Request ROUTINE Care 06/09/19 21:16 Active Resuscitation Status Routine Care 06/09/19 21:09 Ordered Saline Loc DIRECTED Care 06/09/19 17:23 Active Vital Signs Order Q 4-HR ASSESS Care 06/09/19 21:09 Active Z-Document. for Tele Applied ORDERED Care 06/09/19 21:11 Active Physician/Provider Consults Routine Cons 06/09/19 21:15 Ordered NPO Diet 06/09/19 17:23 Active AMYLASE [CHEM] Stat Lab 06/09/19 17:05 Completed BMP [BASIC METABOLIC PANEL] [CHEM] Stat Lab 06/10/19 00:00 Uncollected CBC WITH ELECTRONIC DIFF [HEME] Stat Lab 06/09/19 17:05 Completed COMPREHENSIVE METABOLIC PANEL [CHEM] Routine Lab 06/09/19 17:57 Completed LIPASE [CHEM] Routine Lab 06/09/19 17:57 Completed MAGNESIUM [CHEM] Stat Lab 06/09/19 17:[address] W/POSS RFLX CULT [URINALYSIS] Stat Lab 06/09/19 19:12 Completed URINE CULTURE [RM] Routine Lab 06/09/19 19:52 Ordered Insulin Human Regular [Humulin R] Med 06/10/19 07:00 Ordered See Protocol SUBQ 0700,1100,1600,2100 Ns + KCl 20 Meq 1,000 ml Med 06/09/19 21:13 Active IV 100 mls/hr Ondansetron [Zofran] Med 06/09/19 21:09 Ordered 4 mg IV Q4H PRN PRN Potassium Chloride 20 Meq/Swi Med 06/09/19 18:45 Discontinued 20 meq in 100 ml IV ONCE Potassium Chloride 20 Meq/Swi Med 06/09/19 18:49 Discontinued 20 meq in 100 ml IV ONCE Potassium Chloride 40 Meq/Swi Med 06/09/19 21:12 Active 40 meq in 100 ml IV ONCE Promethazine [Phenergan] Med 06/09/19 18:42 Discontinued 25 mg IV NOW ONE Sodium Chloride 0.9% Med 06/09/19 18:42 Discontinued 10 ml INJ NOW ONE Oxygen Device Routine Oth 06/09/19 21:11 Active Telemetry [OM.EQ] Routine Oth 06/09/19 21:09 Active EKG [EKG] Routine Ther 06/09/19 18:38 Draft Transfer/Admit Order [TRANSFER] Routine Transfer 06/09/19 21:11 Ordered Result Diagrams: 06/09/19 17:05 06/09/19 17:57 - CONSULTS/PCP/HOSPITALIST Notification #1 *Consult/PCP/Hospitalist*: Dr. Rivas Time Discussed: 19:45 Reason/Comments: recommend transfer to [facility] who has GI coverage #2 Consult: Dr. Carlisle,GI Time Discussed: 18:15 Reason/Comments: will see patient at [facility],vt to admit to hospitalist #3 Consult: Dr. Amin , Hospitalist Reason/Comments: 1830 Consult Disposition: Admit <Gamaliel Brandon - Last Filed: 06/09/19 21:19> Departure <Charles Adrian - Last Filed: 06/09/19 19:01> - Departure Date of Disposition Decision: 06/09/19 Time of Disposition Decision: 21:19 Certified Medical Emergency: Emergent - Critical Care Note This patient required my direct & personal management of CC.: Yes Total Time (mins): 125 Critical Care Statement: This patient required my direct personal management to treat or rule out processes, the absence of which, could potentiallly result in sudden, clinically significant life or limb threatening deterioration. <Gamaliel Brandon - Last Filed: 06/09/19 21:19> - Departure DIAGNOSIS: Hypokalemia, Gastroparesis Uncontrolled diabetes mellitus Qualifiers: Diabetes mellitus type: type 2 Glycemic state: with hyperglycemia Qualified Code(s): E11.65 - Type 2 diabetes mellitus with hyperglycemia Disposition: ADMITTED INPATIENT 09 Condition: Stable Referrals and Follow-Ups: None,PCP [Primary Care Provider] - Attestation - Physician/ GAUDENCIO Attestation Patient care was provided by Advanced Practice Provider:: No The physician spent face to face time with patient:: Yes Advanced Practice Provider documentation review:: Supervising physician onsite and consulted in the evaluation and care of this patient. The physician did have a face to face encounter with the patient. <Gamaliel Brandon - Last Filed: 06/09/19 21:19> This chart was documented by the indicated scribe, (Angelina Kee, Scribnarayan) and accurately reflects the services I performed and decisions made by me, Charles Arriola MD, as attested by the provider's signature.
[2019-06-09 19:51] LABS: BILIRUBIN URINE NEGATIVE (NEGATIVE); BLOOD URINE NEGATIVE (NEGATIVE); CLARITY SLIGHTLY HAZY (CLEAR); COLOR YELLOW; GLUCOSE URINE NEGATIVE (NEGATIVE); KETONE URINE TRACE mg/dL (NEGATIVE); PH URINE 6.5; PROTEIN URINE 1+(30 mg/dL) mg/dL (NEGATIVE); URINE SOURCE CLEAN CATCH; UROBILINOGEN URINE 1 mg/dL
[2019-06-09 19:52] LABS: LEUKOCYTES URINE TRACE (NEGATIVE); NITRITE URINE NEGATIVE (NEGATIVE); URINE BACTERIA 1+ /HFP; URINE EPITHELIAL CELLS >10 /HPF (<10); URINE WBC <10 /HPF (<10)
--- NOTE | 2019-06-09 20:51 | EKG Report ---
Test Performed on : 06/09/2019 6:44:42 PM Test Reason : emboli Blood Pressure : / mmHG Vent. Rate : 083 BPM Atrial Rate : 083 BPM P-R Int : 158 ms QRS Dur : 074 ms QT Int : 372 ms P-R-T Axes : 048 045 042 degrees QTc Int : 437 ms Normal sinus rhythm. T wave abnormality, consider anterior ischemia Abnormal ECG When compared with ECG of 02-MAR-2019 09:43, Questionable change in QRS axis T wave inversion now evident in Anterior leads Unconfirmed Result
[2019-06-09] MEDS ORDERED: HUMULIN R (PARKWAY) SUBQ SCH (21:00)
[2019-06-09] MEDS ORDERED: ZOFRAN IV PRN (21:09)
[2019-06-09] MEDS ORDERED: POTASSIUM CHLORIDE 40 MEQ/SWI 40 MEQ/100 ML IVPB IV ONE (21:12)
[2019-06-09] MEDS ORDERED: NS + KCL 20 MEQ 1,000 ML IV ONE ×2 (21:13→23:00)
[2019-06-09] MEDS ORDERED: MAGNESIUM SULFATE 2 GM/S.W.I. 2 GM/50 ML IVPB IV ONE (23:10)
[2019-06-09] MEDS ORDERED: PROTONIX IV ONE (23:13)
[2019-06-09] MEDS ORDERED: DILAUDID IV ONE (23:14)
[2019-06-10] MEDS: SODIUM CHLORIDE 0.9% INJ PRN ×5 (00:02→21:40)
[2019-06-10] MEDS: PHENERGAN IV PRN ×5 (00:03→21:40)
[2019-06-10] MEDS: POTASSIUM CHLORIDE 20 MEQ/SWI 20 MEQ/100 ML IVPB IV SCH ×4 (00:06→19:49)
[2019-06-10] MEDS: HUMALOG SUBQ SCH ×5 (00:14→21:17)
[2019-06-10] MEDS: REGLAN PO SCH ×6 (00:25→21:41)
[2019-06-10 01:08] LABS: CALCIUM 8.2 mg/dL (8.8-10.2); CREATININE 1.5 mg/dL (0.5-0.9); POTASSIUM 2.3 mmol/L (3.5-5.1)
[2019-06-10] MEDS ORDERED: KLOR-CON PO ONE (04:45)
[2019-06-10] MEDS: DILAUDID IV PRN ×4 (05:32→19:43)
--- NOTE | 2019-06-10 05:39 | HISTORY AND PHYSICAL ---
CHIEF COMPLAINT: Nausea, vomiting and abdominal pain for three days. HISTORY OF PRESENT ILLNESS: Ms. Bobby is a 43-year-old -[place] female very well known to our service. She presented to [place]'s emergency room after having three days of nausea, vomiting and abdominal pain which has progressively worsened. She was admitted on 05/30/2019 for cyclic vomiting and hypokalemia. Labs were checked and she was found again to have profound hyperkalemia. She will be admitted for further evaluation and treatment. PAST MEDICAL HISTORY: Gastroparesis status post gastric pacemaker by Dr. Stanford at [facility] in 2014, diabetes mellitus type 2 with a history of noncompliance with medication, insomnia, chronic kidney disease stage 3, hypertension, esophageal strictures requiring frequent dilation, history of gastritis, intractable nausea, vomiting, dysphagia secondary to strictures. PREVIOUS SURGICAL HISTORY: Cholecystectomy, gastric pacemaker, Port-A-Cath placement, esophageal dilation, G-tube placement in 2019. FAMILY HISTORY: Positive for diabetes mellitus. SOCIAL HISTORY: No tobacco or alcohol. No longer uses marijuana. She has had positive drug screens in the past. Also has had a history of hyperemesis related to her cannabinoid use. ALLERGIES: No known drug allergies. HOME MEDICATIONS: Zofran 4 mg p.o. q.6 p.r.n, Reglan 10 mg p.o. AC nightly, Protonix 40 mg p.o. daily. REVIEW OF SYSTEMS: Fourteen-point review of systems conducted with the patient. Pertinent positives listed above in the HPI. All other systems reviewed and found to be negative. PHYSICAL EXAMINATION: VITAL SIGNS: Temperature 98.1, pulse 101, respirations 17, blood pressure 127/94, oxygen saturation 100% on room air. GENERAL: A 43-year-old female, chronic ill appearing, lying in the Medical Floor bed. She is alert and oriented times 3. Answers questions appropriately. HEENT: Head is atraumatic, normocephalic. Pupils equal, round and reactive to light. Extraocular eye movement is intact. Sclera is anicteric. Conjunctivae is mildly pale. Oral mucosa is dry. NECK: Supple. No JVD. No thyromegaly. Trachea is midline. No cervical lymphadenopathy. CARDIAC: S1, S2 appreciated. No murmurs, gallops or rubs. LUNGS: Clear to auscultation bilaterally. No rhonchi, wheezes, rales. Symmetric rise and fall with respirations. ABDOMEN: Soft, nondistended, nontender. Diffusely tender. Bowel sounds present all 4 quadrants. No pulsatile mass. No organomegaly. EXTREMITIES: No clubbing, cyanosis or edema. Two-plus pedal pulses. GENITOURINARY: No bladder distention. Patient voids. Otherwise deferred. NEUROLOGICAL: Alert and oriented times 3. Cranial nerves 2 through 12 grossly intact. LABORATORY DATA: Hemoglobin 11. Hematocrit 31.6. Potassium 1.8. Chloride 108. Carbon dioxide 20. BUN 4. Creatinine 1.5. Glucose 101. Urine unremarkable. ASSESSMENT AND PLAN: 1. Diabetic gastroparesis with intractable nausea and vomiting. Will continue Reglan, Phenergan 12.5 q.6 hours NPO. Will give IV fluids. 2. Hypokalemia. This has been treated aggressively in the emergency room. Will recheck and continue to treat. Also will put potassium in her bag fluids. 3. Chronic kidney disease, stage 3. This appears to be stable. 4. Mild fluid volume depletion secondary to #1. As noted, will given crystalloids with potassium. 5. Intractable nausea and vomiting, aware. Further recommendations per patient clinical course. Dictated by NELL Lundy for Grey Amin MD I have performed a face to face diagnostic evaluation. Labs/ Xrays- reviewed. Exam- Chest- clear, CV- regular, ABD- soft. A/P- Diabetic gastroparesis- Admit, IV fluids, Antiemetics, GI consult. Dr. Amin cc: NELL Lundy MD [facility]
[2019-06-10 07:15] LABS: CALCIUM 7.7 mg/dL (8.8-10.2); CREATININE 1.5 mg/dL (0.5-0.9); POTASSIUM 3.1 mmol/L (3.5-5.1)
[2019-06-10] MEDS ORDERED: PROTONIX PO SCH (09:00)
[2019-06-10] MEDS ORDERED: SODIUM CHLORIDE 0.9% INJ ONE (09:16)
[2019-06-10] MEDS: PROTONIX IV SCH ×2 (09:20→21:41)
--- NOTE | 2019-06-10 16:23 | PROGRESS NOTE ---
DATE: 06/10/2019 ADDENDUM: Her mom told me her concern. She feels she is depressed. She does not eat much. She feels like she takes a good deal of pain medicine at home and her nausea medicine. When she comes home from the hospital she will eat a little bit for a couple of days and then just gets back to her same situation, where she is just not eating much. She has lost a lot of weight and so wanted me to be aware. She is concerned about depression. I thought about starting her on something that may help with depression and also an appetite stimulant, see if that helps her at all. cc: Gamal Garzon MD
--- NOTE | 2019-06-10 16:38 | PROGRESS NOTE ---
DATE: 06/10/2019 Ms. Bobby is a 43-year-old. She has no primary care physician. She came in with nausea, vomiting, and abdominal pain for 3 days. She is a 43-year-old female, well known to our service, who presented to [place] Emergency room after having 3 days of nausea, vomiting, and abdominal pain which progressively worsened. She was admitted on 05/30/2019 for cyclic vomiting and hypokalemia. Labs were checked and she was found to again to have profound hypokalemia, and admitted for further evaluation and treatment. PAST MEDICAL HISTORY: 1. Gastroparesis, status post gastric pacemaker per Dr. Stanford at [facility] in 2014. 2. Diabetes mellitus type 2. 3. Poor compliance with medication has been documented in the past. 4. Insomnia. 5. Chronic kidney disease, stage 3. 6. Hypertension. 7. Esophageal strictures, requiring frequent dilatation. 8. History of gastritis. 9. Intractable nausea. 10. Vomiting and dysphagia secondary to strictures. PREVIOUS SURGICAL HISTORY: 1. Status post cholecystectomy. 2. Gastric pacemaker. 3. Port-A-Cath placement. 4. Esophageal dilatation. 5. G-tube placement in 2019. PHYSICAL EXAMINATION: Her mother was at the bedside. Vital Signs: She remains afebrile, temperature 97.4 degrees, pulse 80, respirations 16, blood pressure 89/63. Eyes: Pupils are equal and round. Lungs: Clear in all lung bashir. Cardiovascular: Regular rate without murmur or S3. Abdomen: Soft, nondistended at this time. Skin: Warm and dry. Urine output was 1600 mL. REVIEW OF LABS: On admission, white count 5350, hematocrit 31, hemoglobin 11. Pro-time 437. Electrolytes 148. Potassium when she came in was 2.3 and it dropped down to 1.8. It was 3.1 yesterday. Chloride 115, BUN 3, creatinine 1.5, with an estimated GFR per 1.73 m2 is about 45. Her transaminase is unremarkable. Total bilirubin 1.10, albumin 3.3. Urinalysis unremarkable. Urine culture with no growth. ASSESSMENT AND PLAN: 1. She is requesting something for her tummy, is just uncomfortable. Gastroparesis with intractable nausea and vomiting. She has a history of a gastric pacemaker placed by Dr. Stanford at [facility] [place] in 2015. She has recurrent gastritis and esophagitis with esophageal strictures, and I do not know if she will need to be evaluated again with an esophagogastroduodenoscopy. She is complaining of dysphagia and food getting stuck. She is not eating very well and losing weight. 2. Hypokalemia. We will continue to supplement her potassium. Her magnesium was 1.7. Her calcium was 7.7. We will continue to supplement potassium. She received some potassium chloride intravenously twice, some magnesium sulfate 2 g once yesterday, and we will give her some more potassium today intravenously, try not to have her swallow at this point, and then her malnutrition, losing weight, not eating much, and continuing to have nausea. 3. On review of her medications, she is getting Dilaudid p.r.n. pain. It is 0.5 mg every 3 hours. She is on Reglan, prokinetic 10 mg p.o. before meals and nightly. She is on high dose Protonix 40 mg q.12, and I am not sure that Carafate would add anything to this at this point. GI is to follow and we will see if we need to scope her again. cc: Gamal Garzon MD
--- NOTE | 2019-06-10 18:14 | CONSULTATION ---
DATE OF CONSULTATION: 06/10/2019 REASON FOR CONSULTATION: Gastroparesis. HISTORY OF PRESENT ILLNESS: Ms. Bobby is a 43-year-old female. She had been to [facility] with a complaint of nausea, vomiting, and abdominal pain which progressively has worsened. She was admitted on 05/30/2019 for cyclic vomiting and hypokalemia. Currently, she complains about difficulty swallowing, and states that whatever she eats she feels like throwing up, constant nausea and vomiting and when she throws up, her vomit looks like a yellow liquid. She has denied any diarrhea. She has complained of pain in her throat, and she also stated that she had done an EGD last February in [place] and had to dilate it. Ever since, she has lost 20 pounds in less than 6 months. She is currently n.p.o., but she still feels like she is nauseated at all times, and she complains that it hurts even when she tries to swallow her saliva.. PAST MEDICAL HISTORY: Gastroparesis, post gastric pacemaker, diabetes type 2, insomnia, chronic kidney disease, hypertension, esophageal stricture, gastritis, nausea, vomiting, dysphagia secondary to the stricture, non compliance with medications. PREVIOUS SURGICAL HISTORY: Cholecystectomy, gastric pacemaker, Port-A-Cath placement, esophageal dilation, a G-tube placement in 2019. FAMILY HISTORY: Positive for diabetes. SOCIAL HISTORY: She has denied any alcohol or tobacco. She use to take marijuana in the past. She lives with her son, is single and currently on disability. HOME MEDICATIONS: Zofran, Reglan and Protonix. REVIEW OF SYSTEMS: As per HPI. Otherwise, 12-point review of systems is negative. PHYSICAL EXAMINATION: Vital Signs: Temperature is 97.4 degrees, pulse is 85, respirations are16, blood pressure is 100/77, oxygen saturation is 100 on room air. Weight 101.8 pounds, BMI 17.5 kg per meter square. General: This is a 43-year- old female lying in the bed, alert, oriented x3, and is answering all the questions appropriately. HEENT: Pale conjunctivae. No icterus. PERRL. Neck: Supple. Cardiac: Regular rate and rhythm. No murmurs, gallops, or rubs heard on auscultation. Lungs: Clear to auscultation bilaterally in anterior and posterior bashir. Abdomen: Soft, nontender, nondistended. Complains of generalized abdominal pain. Bowel sounds present in all 4 quadrants. Gastric pacemaker on the right side of the abdomen. Extremities: No cyanosis, clubbing, or edema noted 2+ pedal pulses present bilaterally. Neurological: Alert and oriented x3, nonfocal and cranial nerves 2 to 12 grossly intact. LABORATORY DATA: WBCs 5.35, RBCs 4.07, hemoglobin is 11.0, hematocrit is 31.6, platelet count is 437,000. Sodium is 148, potassium is 3.1, chloride is 115, carbon dioxide is 19, anion gap is 14, BUN is 3, creatinine is 1.5, glucose is 96, calcium is 7.7, magnesium is 1.7, total bilirubin is 1.0, AST is 21, ALT is 12, alkaline phos is 99, albumin is 3.3. Urine on 06/09/2019 showed clarity was slightly hazy, 1+ protein present and trace of WBCs. ASSESSMENT AND PLAN: Nausea and Vomiting GERD Dysphagia Anemia Gastroparesis h/o Esophageal stricture Hypokalemia Hypertension Diabetes Type II PLAN: We will continue with PPI BID for now, antiemetics, clear liquid diet for now and advance as tolerated. She is receiving potassium 20 Meq in 100 mls @ 50 mls/hour x 2 bags per her PCP. Will monitor her CBC and BMP, and follow the plan of care per primary care team. Schedule for EGD in AM with Dr Cano. Risks benefits indications and alternatives to the procedure were discussed with the patient and family at bedside and all questions were answered. This plan was discussed with Dr. Haq and the patient, patient verbalizes understanding of the plan of care. Thank you for your consult. Please call us with any questions or concerns. Dictated by NELL Anthony for Yandel Haq MD cc: Yandel Haq MD I have seen the patient myself and agree with the above plan of care. Please call us with any further questions or concerns. MTDD
[2019-06-10] MEDS: DULCOLAX PR SCH (21:41)
[2019-06-10] MEDS: REMERON PO SCH (21:41)
[2019-06-11] MEDS: DILAUDID IV PRN ×5 (02:01→21:40)
[2019-06-11] MEDS: SODIUM CHLORIDE 0.9% INJ PRN ×4 (04:31→21:47)
[2019-06-11] MEDS: PHENERGAN IV PRN ×4 (04:31→21:40)
[2019-06-11] MEDS: HUMALOG SUBQ SCH ×4 (06:27→21:47)
[2019-06-11] MEDS: REGLAN PO SCH ×3 (06:40→15:49)
[2019-06-11 07:24] LABS: CALCIUM 7.4 mg/dL (8.8-10.2); CREATININE 1.2 mg/dL (0.5-0.9); POTASSIUM 2.9 mmol/L (3.5-5.1)
[2019-06-11] MEDS: PROTONIX IV SCH ×2 (09:32→21:47)
[2019-06-11] MEDS: POTASSIUM CHLORIDE 20 MEQ/SWI 20 MEQ/100 ML IVPB IV SCH ×2 (17:58→21:41)
[2019-06-11] MEDS: POTASSIUM CHLORIDE 40 MEQ in NS 1,000 ML IV SCH (18:03)
--- NOTE | 2019-06-11 18:51 | PROGRESS NOTE ---
DATE: 06/11/2019 SUBJECTIVE: The patient is still kind of spitting up. It is not clear that she is throwing up excessive amounts, but she is spitting up a bit. OBJECTIVE: Blood pressure is 117/82, heart rate 95, respiratory rate 18, temperature 98.2 degrees, 100% on room air.Cardiovascular: Regular rate and rhythm. Pulmonary: Bilateral breath sounds, clear to auscultation. GI: Soft, nontender, nondistended. Bowel sounds were positive. LABORATORY DATA: Creatinine is down to 1.2, but her potassium is 2.9. PROBLEM LIST: 1. Gastroparesis, which is still fairly intractable and persistent. I am going to put her on intravenous Reglan and we will see how she does. Plan for esophagogastroduodenoscopy tomorrow at this point per GI consultants. Will continue metoclopramide and proton pump inhibitor, and follow. 2. Chronic renal insufficiency. She seems to be doing okay from that standpoint. We will continue to monitor closely. DISPOSITION: Once she tolerates p.o., she should be able to go home. cc: Jermain Gregory MD
[2019-06-11] MEDS: DULCOLAX PR SCH (21:47)
[2019-06-11] MEDS: REGLAN IV SCH (22:00)
[2019-06-11] MEDS: REMERON PO SCH (22:00)
--- NOTE | 2019-06-11 23:48 | PROVIDER PROGRESS NOTE ---
Progress Note S: No N/V today. She reports usual epigastric pain and odynophagia. +BMs that are nonbloody. She admits to running out of PPI and antiemetics in April. Her last EGD with dilation was in late 03/2019. Her surgical J-tube was accidentally pulled out in the last couple of months. She has been tolerating liquids until recently. She has not been able to eat solids for several months now per her report. She has not been evaluated by a surgeon for possible esophagectomy at this point. O: Last Vital Signs Temp 98.5 F 06/11/19 23:55 Pulse 102 H 06/11/19 23:55 Resp 18 06/11/19 23:55 BP 135/90 06/11/19 23:55 Pulse Ox 100 06/11/19 23:55 Height 5 ft 4 in Weight 102 lb 3 oz GEN: awake, alert, NAD HEENT: anicteric, MMM NECK: supple, no JVD PULM: CTAB, no wheezing ABD: surgical scars noted, soft, NT/ND BS present EXT: no cce NEURO: nonfocal LABS: 06/11/19 06:20 Sodium 136 Potassium 2.9 L Chloride 106 Carbon Dioxide 19 L BUN 3 L Creatinine 1.2 H Glucose 105 H PROBLEM LIST - Dysphagia - Intractable N/V - Esophageal stricture - History of PUD - Gastroparesis - Anemia - CATERINA - Hypokalemia - IDDM2 ASSESSMENT AND PLAN: Kaleigh Bobby is a 43-year-old woman with a complicated history of poorly controlled insulin-dependent diabetes, gastroparesis status post gastric pacemaker, history of NSAID-induced PUD, esophageal stricture with severe esophagitis requiring serial dilations at [facility], and chronic anemia who re- presents with inability to tolerate p.o. with nausea, vomiting, epigastric pain and dysphagia. She is well-known to our service. She admits to running out of PPI and antiemetics back in April. Her J-tube was dislodged and had to be removed. She continues to lose weight. She is currently doing ok with PPI, IVFs, K replacement, and antiemetics. Will plan to make her NPO after MN and perform diagnostic EGD in AM since it has been a few months since she has had EGD her and she has been undergoing serial dilations at [facility]. Will like to reassess degree of stricture now.
[2019-06-12] MEDS: DILAUDID IV PRN ×6 (02:00→22:51)
[2019-06-12] MEDS: PHENERGAN IV PRN ×6 (02:00→22:52)
[2019-06-12] MEDS: SODIUM CHLORIDE 0.9% INJ PRN ×5 (02:00→18:31)
[2019-06-12] MEDS: POTASSIUM CHLORIDE 40 MEQ in NS 1,000 ML IV SCH (02:01)
[2019-06-12] MEDS: REGLAN IV SCH ×3 (06:30→22:52)
[2019-06-12 07:11] LABS: HEMATOCRIT 25.3 % (37.0-47.0); HEMOGLOBIN 8.6 g/dL (12.0-16.0); MCH 27.7 PG (27-31); MCV 81.4 FL (81-99); MPV 12.3 FL (7.4-10.4); RBC 3.11 XMIL (4.2-5.4); RDW 18.6 % (11.5-14.5); WBC 4.85 X1000 (4.8-10.8)
[2019-06-12 07:41] LABS: ALBUMIN 2.7 g/dL (3.5-5.0); CALCIUM 7.6 mg/dL (8.8-10.2); CREATININE 1.4 mg/dL (0.5-0.9); PHOSPHORUS 1.8 mg/dL (2.7-4.5); POTASSIUM 3.9 mmol/L (3.5-5.1)
[2019-06-12] MEDS: HUMALOG SUBQ SCH ×4 (07:48→21:41)
[2019-06-12] MEDS ORDERED: DIPRIVAN 1% ONE (09:13)
--- NOTE | 2019-06-12 09:38 | ENDOSCOPY OPERATIVE NOTE ---
[facility] ENDOSCOPY OPERATIVE NOTE , EGD WITH DILATION PROCEDURE REPORT EXAM DATE: 06/12/2019 PATIENT NAME: Kaleigh Bobby MR#: [id number] BIRTHDATE: 1975 ATTENDING: Charles Cano MD STATUS: inpatient [facility] MACHINE: INDICATIONS: The patient is a 43 yr old female here for an EGD with dilation due to nausea, vomiting , dysphagia, pharyngeal-esophageal , and History of esophageal stricture requiring serial dilations at [facility]. PROCEDURE PERFORMED: EGD w/ balloon dilation of esophagus MEDICATIONS: Per Anesthesia TOPICAL ANESTHETIC: none CONSENT: The patient understands the risks and benefits of the procedure and understands that these r isks include, but are not limited to: sedation, allergic reaction, infection, perforation and/or bleeding. Alternative means of evaluation and treatment include, among others: physical exam, x-rays, and/or surgical intervention. The patient elects to proceed with this endoscopic procedure. HISTORY AND PHYSICAL: 06/12/2019 function. Hand hygiene and appropriate measures for infection prevention was taken. After the risks, benefits and alternatives of the procedure were thoroughly explained, Informed consent was verified, confirmed and timeout was successfully executed by the treatment team. The patient was anesthetized with topical anesthesia and the Pentax EG-[id number] endoscope was introduced through the mouth and advanced to the esophagus mid were at strictu re was encountered at 30cm from incisors. The instrument was slowly withdrawn as the mucosa was fully examined. ESOPHAGUS: There was a stricture with an inner diameter of 5mm. Using a TTS-balloon the stricture wa s dilated up to 8mm starting at 6mm. The balloon was held inflated for 30 seconds. Dilation was performed at mid esophagus. DILATOR: SIZE(S): RESISTANCE: HEME: APPEARANCE: Dilator: Balloon Size(s): 8 Resistance: extensive Heme: yes Appearance: adequate COMMENT: There was small superficial esophageal tear noted post-dilation Retroflexion of the stomach was not performed. ADVERSE EVENTS: There were no complications. IMPRESSIONS: There was a stricture with an inner diameter of 5mm; Using a TTS-balloon the strictu re was dilated up to 8mm; The balloon was held inflated for 30 seconds RECOMMENDATIONS: Diabetic clear liquid diet; do not advance further Continue PPI BID Continue antiemetics Patient will need outpatient surgical evaluation for possible esophagectomy at [facility] given persistent s tricture, medication non-compliance, and poor outpatient follow-up. REPEAT EXAM: Charles Cano MD eSigned: Charles Cano MD 06/12/2019 9:37 AM cc: CPT CODES: 94647 Upper gastrointestinal endoscopy including esophagus, stomach, and either the du odenum and/or jejunum as appropriate; with balloon dilation of esophagus (less than 30 mm diameter) ICD CODES: The ICD and CPT codes recommended by this software are interpretations from the data that the [facility] staff has captured with the software. The verification of the translation of this report to the ICD and CPT co arlyn and modifiers is the sole responsibility of the health care institution and practicing physician where this report was generated. [employer] will not be held responsible for the validity of the ICD and CPT codes i ncluded on this report. A assumes no liability for data contained or not contained herein. CPT is a registered tra demark of the [employer]. PATIENT NAME: Kaleigh Bobby MR#: [id number]
[2019-06-12] MEDS ORDERED: SODIUM PHOSPHATE 40 MEQ in NS 250 ML IV ONE (10:07)
[2019-06-12] MEDS: PROTONIX IV SCH ×2 (10:14→22:35)
[2019-06-12] MEDS ORDERED: BLISTEX MEDICATED BERRY LIP BALM TOP PRN (18:54)
[2019-06-12 21:30] LABS: CALCIUM 7.1 mg/dL (8.8-10.2); CREATININE 1.3 mg/dL (0.5-0.9); POTASSIUM 3.3 mmol/L (3.5-5.1)
--- NOTE | 2019-06-12 21:51 | PROGRESS NOTE ---
DATE: 06/12/2019 SUBJECTIVE: Patient has no major complaints. She is still having some emesis, although not protracted. OBJECTIVE: Vital signs: Blood pressure is 116/84, heart rate of 91, respiratory rate of 16, temperature was 98.3 degrees. Cardiovascular: Regular rate and rhythm. Pulmonary: Bilateral breath sounds clear to auscultation. Gastrointestinal: Soft, nontender, nondistended. Bowel sounds are positive. LABORATORY DATA: Her white count 4. Creatinine is 1.4. Potassium 3.9, albumin 2.7. PROBLEM LIST: 1. Gastroparesis, intractable. She is on Reglan. She seems to be doing better. Her EGD today per Dr. Cano showed a stricture that was dilated up to 8 mm. Apparently, this is a persistent stricture that just has not been amenable to serial dilation. Dr. Cano is recommending that she have esophagectomy or partial esophagectomy. Repeated strictures are probably not going to help this. He is also not very compliant with multiple medications so we will try to coordinate and get that set up. The [facility], and we cannot set up a GI appointment or surgical appointment with the [facility]. She will have to go through her PCP who she has established care with. 2. Chronic renal insufficiency, appears to be stable. 3. Diabetes, reportedly, although sugars have been stable and she is not on any medications as far as long-term medications. 4. Hypophosphatemia, hypokalemia. We have supplemented and will monitor her levels tomorrow. cc: Jermain Gregory MD
[2019-06-12] MEDS: REMERON PO SCH (22:52)
[2019-06-12] MEDS: DULCOLAX PR SCH (22:53)
[2019-06-13] MEDS: PHENERGAN IV PRN ×4 (02:33→13:42)
[2019-06-13] MEDS: DILAUDID IV PRN ×4 (02:33→12:48)
[2019-06-13] MEDS: REGLAN IV SCH (04:55)
[2019-06-13] MEDS: SODIUM CHLORIDE 0.9% INJ PRN ×3 (06:32→13:42)
[2019-06-13 07:22] LABS: BASO# 0.02 X1000 (0.0-0.2); BASO% 0.5 % (0.0-0.8); EOS# 0.07 X1000 (0.0-0.7); EOS% 1.7 % (0.0-10.0); HEMATOCRIT 24.3 % (37.0-47.0); LYMPH# 2.35 X1000 (1.2-3.4); LYMPH% 57.5 % (20.5-51.1); MCH 26.8 PG (27-31); MCHC 32.9 g/dL (33-37); MCV 81.3 FL (81-99); MONO# 0.33 X1000 (0.11-0.59); MONO% 8.1 % (1.7-9.3); MPV 12.7 FL (7.4-10.4); NEUT# 1.32 X1000 (1.4-6.5); NEUT% 32.2 % (42.2-75.2); PLT 271 X1000 (130-400); RBC 2.99 XMIL (4.2-5.4); RDW 18.8 % (11.5-14.5); WBC 4.09 X1000 (4.8-10.8)
[2019-06-13 07:35] LABS: ALBUMIN 2.5 g/dL (3.5-5.0); CALCIUM 7.5 mg/dL (8.8-10.2); CREATININE 1.3 mg/dL (0.5-0.9); PHOSPHORUS 3.9 mg/dL (2.7-4.5); POTASSIUM 3.2 mmol/L (3.5-5.1)
[2019-06-13] MEDS: PROTONIX IV SCH (09:43)
[2019-06-13] MEDS: HUMALOG SUBQ SCH ×2 (11:37→13:41)
[2019-06-13 12:13] VITALS: BP 103/78
--- NOTE | 2019-06-13 18:51 | GASTROENTEROLOGY PROGRESS NOTE ---
DATE: 06/13/2019 SUBJECTIVE: Ms. Bobby is a 43-year-old female, resting in bed. She denied any nausea, vomiting or diarrhea. She had one bowel movement on Monday. She stated that she was feeling much better than when she came into the hospital. OBJECTIVE: Vital signs: Temperature 97.4 degrees, pulse rate is 103, respirations are 18, blood pressure is 123/87, oxygen saturation 100% on room air. General: She is alert and oriented x3, and in no acute distress.HEENT: Pale conjunctivae. No icterus. PERRL. Neck supple. Lungs clear to auscultation in anterior and posterior bashir. Cardiovascular: Regular rate and rhythm. No murmurs, gallops, or rubs heard on auscultation. Abdomen is soft, nontender, nondistended. Active bowel sounds heard in all 4 quadrants. Gastric pacemaker on the left extremity of the abdomen. Extremities: No clubbing, cyanosis or edema noted. Pedal pulses 2+ present bilaterally. Neurologic: Alert and oriented x3. LABORATORY DATA: WBCs 4.9, RBC is 2.9, hemoglobin is 8.0, hematocrit is 24.3, platelet count is 271,000. Sodium is 144, potassium is 3.2, chloride is 115, carbon dioxide is 17, anion gap is 12, BUN is 2, creatinine is 1.3, glucose is 85, calcium 7.5, phosphorus is 3.9, albumin is 2.5. Urinalysis on 06/09 showed trace of WBC, 1+ protein, and clarity was slightly hazy. DIAGNOSTIC DATA: Her EGD on 06/12 showed that there was a stricture with an inner diameter of 5 mm and it was dilated up to 8 mm. IMPRESSION: 1. Dysphagia. 2. Nausea and vomiting. 3. Esophageal stricture. 4. Gastroparesis. 5. Anemia. 6. Acute kidney disease. 7. Hypokalemia. 8. Insulin-dependent type 2 diabetes. 10. Non-compliance. Patient encouraged to improve compliance with medications. PLAN: Patient will need serial dilations for esophageal stricture. We plan to continue her Protonix 40 mg IV b.i.d. and then p.o. for 12 weeks. Continue Antiemetics, Reglan, Phenergan for nausea and vomiting. The patient's diabetes is controlled by insulin per her primary care team. She is on a clear liquid diet. We will advance her diet as tolerated. We will continue to monitor her CBCs and BMP, and follow the plan of care as per her primary care team. This plan was discussed with Dr. Haq. Please give us a call for any further questions or concerns. Dictated by NELL Anthony for Yandel Haq MD cc: Yandel Haq MD Patient seen and examined myself. I agree with the above plan of care. I have discussed the above with the patient and family at bedside and all questions were answered. Please call us with any further questions MTDD
--- NOTE | 2019-06-14 04:51 | DISCHARGE SUMMARY ---
ADMISSION DATE: 06/10/2019 DISCHARGE DATE: 06/13/2019 CONSULTATIONS: Dr. Haq with Gastroenterology. PERTINENT PROCEDURES: EGD with dilatation by Dr. Cano. DISCHARGE DIAGNOSES: 1. Gastritis, intractable on Reglan, status post esophagogastroduodenoscopy with dilatation with Dr. Cano. She was dilated up to 8 mm. This is a persistent stricture that has not been amenable to serial dilation. Dr. Cano has recommended esophagectomy or partial esophagectomy. Her previous strictures probably would not help her situation. Her biggest issue is she is set up with the [facility] and we were unable to set up GI appointments or surgical appointments through the [facility]. She will need to go through her PCP that has been established with her care. The patient has been made aware this numerous times in the past as well as medical noncompliance. 2. Medical noncompliance. 3. Chronic renal insufficiency, stable. 4. Diabetes. She continues to remain stable and has not been on any long-term medications for her diabetes. 5. Hypophosphatemia and hypokalemia that have been supplemented. HOSPITAL COURSE: Briefly, Ms. Bobby is a 43-year-old female well known to our service for several admissions for intractable nausea, and vomiting and abdominal pain. Came to the ED complaining of the same issues because they had progressively worsened and recently been admitted on 05/30/2019 for cyclic vomiting and hypokalemia. Her labs were checked and she was found to have a profound hyperkalemia and was admitted for further evaluation and treatment. She was continued on her Reglan and Phenergan and given treatment for her electrolyte abnormalities and was followed by GI. They did an EGD and a dilatation. Their recommendation is that she will need evaluation for possible esophagectomy at [facility] given persistent strictures, medication noncompliance and poor outpatient followup. She is stable and being discharged back home today. VITAL SIGNS: Temperature is 97.9 degrees, heart rate 69, respirations 16, blood pressure 103/78, O2 is 100% on room air. DISCHARGE DIET: Clear liquids with Clear Ensure each meal. DISCHARGE MEDICATIONS: 1. Protonix 40 mg p.o. daily. 2. Reglan 10 mg p.o. a.c. and at bedtime. 3. Zofran 4 mg p.o. q.6 hours p.r.n. FOLLOWUP: Ms. Bobby is being discharged back home with self care. She is to continue her recommended diet, take her medications as prescribed and follow up with specialists as instructed on numerous occasions. She can return to the ED or call 911 for any worsening of symptoms. Dictated by NELL Jules for Clyde Dominguez MD cc: Clyde Dominguez MD
== END 2019-06-13 14:13 | disposition home health service (06) | DRG 74 ==
LOC: P.ED 16:37 → SUATTDRO 21:39 → 4N 21:39
PROVIDERS: ATTEND Internal Medicine

== ENCOUNTER 2019-07-08 11:56 | Inpatient (IN) ==
[2019-07-08 13:19] LABS: BASO# 0.01 X1000 (0.0-0.2); BASO% 0.1 % (0.0-0.8); EOS# 0.02 X1000 (0.0-0.7); EOS% 0.3 % (0.0-10.0); HEMATOCRIT 31.2 % (37.0-47.0); IMM GRAN# 0.06 X1000 (0.0-0.04); IMM GRAN% 0.8 % (0.0-0.5); LYMPH# 1.57 X1000 (1.2-3.4); LYMPH% 21.3 % (20.5-51.1); MCH 28.5 PG (27-31); MCHC 35.3 g/dL (33-37); MCV 80.8 FL (81-99); MONO# 0.77 X1000 (0.11-0.59); MONO% 10.4 % (1.7-9.3); MPV 11.3 FL (7.4-10.4); NEUT# 4.94 X1000 (1.4-6.5); NEUT% 67.1 % (42.2-75.2); PLT 547 X1000 (130-400); RBC 3.86 XMIL (4.2-5.4); RDW 20.5 % (11.5-14.5); WBC 7.37 X1000 (4.8-10.8)
--- NOTE | 2019-07-08 13:20 | PROVIDER DOCUMENTATION ---
This chart was entered by Kyaw Barnard Scribe, acting as scribe for Janet Glaser MD. HPI-Abdominal Pain/GI Problem - General Chief Complaint: Nausea/Vomiting Stated Complaint: NAUSEA / VOMITING Time Seen by Provider: 07/08/19 12:22 Source: patient, family Allergies/Adverse Reactions: Patient Allergies Allergy/AdvReac Type Severity Reaction Status Date / Time No Known Allergies Allergy Verified 02/12/19 10:46 Home Medications: Home Medication List Medication Instructions Recorded Confirmed Last Taken Type Metoclopramide [Reglan] 10 mg PO AC + HS #120 tab 05/25/19 06/09/19 Unknown Rx Ondansetron Odt [Zofran Odt] 4 mg PO Q6H PRN PRN #25 tab 05/25/19 06/09/19 Unknown Rx Pantoprazole [Protonix] 1 tab PO DAILY 06/09/19 06/09/19 Unknown History - History of Present Illness-ABD Nature of Presenting Problems: 43 yof presents to the ed with c/o N/V and abdominal pain. family stated onset symptoms for week. family states " pt has lost great amounts of weight in the last 2-3 weeks." pt stated " being light headed and dizzy." pt stated " not having a bowel movement for a week." pt stated " having similar symptoms before." pt stated " having a lot of vomiting , family stated " like pt is vomiting fluid." pt stated " my hemorrhoids are hurting but no bleeding." pt has hx of diabetic gastroparsis, pt has gastric pacemaker. pt has hx of DM and anemia Abdominal Pain Onset Location: reports: generalized abdomen Pain Radiation: reports: no radiation Quality of Pain: reports: aching Severity in ED: reports: mild Onset/Duration: reports: 1 week ago Timing: reports: still present Activities at Onset: reports: none Exposure to sick contacts?: No Modifying Factors: worse with: movement Associated Symptoms: reports: constipation, nausea, vomiting. denies: chest pain, diarrhea, fever/chills, shortness of breath Last BM: 1 week ago Dark Stools Present?: reports: none noticed Rectal Bleeding: reports: none Rectal Pain: reports: none Emesis Description: reports: none Bruising or Bleeding Gums?: No Similar Symptoms Previously?: No Review of Systems - Adult - REVIEW OF SYSTEMS - ADULT Constitutional: reports: weight loss (family stated "great amount of weight loss in past 2-3 weeks). denies: chills, fever Eyes: reports: no symptoms reported Ears, Nose, Mouth & Throat: reports: no symptoms reported Cardiovascular: denies: chest pain, heart murmur, palpitations Respiratory: denies: shortness of breath, wheezing Gastrointestinal: reports: see HPI, abdominal pain, constipation. denies: diarrhea, nausea, rectal bleeding, vomiting Genitourinary: reports: no symptoms reported Musculoskeletal: denies: back pain, neck pain Integumentary: reports: no symptoms reported Neurological: reports: dizziness/vertigo. denies: numbness, slurred speech Psychiatric: reports: no symptoms reported Endocrine: reports: no symptoms reported Hematologic/Lymphatic: reports: no symptoms reported Allergic/Immunologic: reports: no symptoms reported All Other Systems: Reviewed and Negative Past History - Adult - PAST MEDICAL HISTORY-ADULT Review of Records: reports: Old Records Reviewed, Nursing Assessment Review, Medications Reviewed, Social history reviewed & non-contributory. Major Childhood Illnesses: reports: denies history Cardiovascular: reports: HTN, hyperlipidemia Respiratory: reports: denies history Gastrointestinal: reports: GERD (with esophagitis and stenosis), GI bleed, ulcer , other (diabetic gastroparesis, erosive gastritis and esophagitis; gastric pacemaker) Obstetrical/Gynecological: reports: denies history Genitourinary: reports: kidney disease, other (ammenorrhea for 1 year) Musculoskeletal: reports: denies history Neurological: reports: other (DM neuropathy) Psychiatric: reports: anxiety, depression Endocrine/Immune: reports: anemia, Diabetes Other Conditions: reports: denies history Additional History: frequent ER visits - PRIOR SURGERIES/PROCEDURES Surgical/Procedure History: reports: cholecystectomy, indwelling device (Portacath), other (gastric stimulator) - IMMUNIZATION STATUS Childhood Immunizations: See Nurse Assessment Flu Vaccine: See Nurse Assessment - FAMILY HISTORY Family History: reviewed, not pertinent - SOCIAL HISTORY Smoking: denies Substance Use: alcohol Alcohol Use Frequency: occasionally Living Situation: alone Physical Exam-General - PHYSICAL EXAM-ADULT Initial Vital Signs Reviewed: Yes - CONSTITUTIONAL General Appearance: appears well, alert, mild distress, thin - EYES Eyes: PERRL/EOMI - HEAD, EARS, NOSE, MOUTH & THROAT HENMT: normal ENT inspection, TMs normal. negative: moist mucous membranes (dry) - NECK Neck: non-tender, full range of motion, supple, normal inspection - RESPIRATORY Respiratory: chest non-tender, lungs clear, normal breath sounds, no pleuratic chest pain, no respiratory distress, no accessory muscle use - CARDIOVASCULAR Cardiovascular: tachycardia (120) - CHEST (BREASTS) Chest/Breast: deferred - GASTROINTESTINAL (ABDOMEN) Abdominal Exam: non tender, soft, no organomegaly, no pulsatile mass, abnormal bowel sounds, distended (bilateral). negative: guarding, rigid - GENITOURINARY Female Genitalia/Pelvic Exam: deferred Rectal Exam: deferred Hemoccult Exam: deferred - LYMPHATIC Lymphatic: no adenopathy - MUSCULOSKELETAL Back Exam: normal inspection, no CVA tenderness, no vertebral tenderness Extremity: normal range of motion, non-tender, normal gait - SKIN Integumentary: normal turgor, pallor - NEUROLOGIC Neurologic: grossly normal, no motor/sensory deficits - PSYCHIATRIC Psych/Mental Status: normal mood/affect, normal thought content, normal thought process, oriented x 3 Progress - PLAN OF CARE/RESULTS Progress/Plan/Lab Results: Vital Signs - 8 hr 07/08/19 12:00 Temperature 98 F Pulse Rate 120 H Respiratory Rate 16 Blood Pressure 116/83 O2 Sat by Pulse Oximetry 100 pt on exam looks dehydrated , very weak also pallor. Result Diagrams: 07/08/19 13:06 07/08/19 13:06 - CONSULTS/PCP/HOSPITALIST Notification #1 *Consult/PCP/Hospitalist*: d/w Dr Rivas Time Discussed: 14:10 Consult Disposition: Will see in ED, Admit (recommended to admit to [facility], Dr Rivas will f/u on results of CT scan of abd and pelvis which is pending) Departure - Departure Date of Disposition Decision: 07/08/19 Time of Disposition Decision: 14:15 DIAGNOSIS: Dehydration, Intractable vomiting, Nausea & vomiting, Renal insufficiency, Hypokalemia Disposition: ADMITTED INPATIENT 09 Certified Medical Emergency: Emergent Condition: Stable Referrals and Follow-Ups: hCaran Jimenes MD [Primary Care Provider] - - Critical Care Note This patient required my direct & personal management of CC.: No Attestation - Physician/ GAUDENCIO Attestation Patient care was provided by Advanced Practice Provider:: No The physician spent face to face time with patient:: Yes Advanced Practice Provider documentation review:: Supervising physician onsite and consulted in the evaluation and care of this patient. The physician did have a face to face encounter with the patient. This chart was documented by the indicated scribe, (Kyaw Barnard, Gonzalo) and accurately reflects the services I performed and decisions made by me, Janet Glaser MD, as attested by the provider's signature.
[2019-07-08 13:53] LABS: BILIRUBIN URINE NEGATIVE (NEGATIVE); BLOOD URINE NEGATIVE (NEGATIVE); CLARITY CLEAR (CLEAR); COLOR YELLOW; GLUCOSE URINE NEGATIVE (NEGATIVE); KETONE URINE TRACE mg/dL (NEGATIVE); LEUKOCYTES URINE TRACE (NEGATIVE); NITRITE URINE NEGATIVE (NEGATIVE); PH URINE 6.5; PROTEIN URINE 1+(30 mg/dL) mg/dL (NEGATIVE); SP GRAVITY URINE 1.015; UROBILINOGEN URINE 1 mg/dL
[2019-07-08] MEDS ORDERED: SODIUM CHLORIDE 0.9% INJ ONE (13:59)
[2019-07-08] MEDS ORDERED: PHENERGAN IV ONE (13:59)
[2019-07-08 14:08] LABS: CALCIUM 8.5 mg/dL (8.8-10.2); CREATININE 1.2 mg/dL (0.5-0.9); TOTAL BILIRUBIN 0.7 mg/dL (0.20-1.00)
[2019-07-08 14:10] LABS: POTASSIUM 1.7 mmol/L (3.5-5.1)
--- NOTE | 2019-07-08 14:14 | ED EKG INTERP ---
This chart was entered by Kyaw Barnard Scribe, acting as scribe for Janet Glaser MD. EKG Interpretation - EKG Time of EKG reading by physician:: 14:00 EKG Read and Signed by:: Janet Glaser EKG Interpretation (*Must complete 3 of following elements*): Abnormal Rate: 98 Rhythm: NSR [place]: normal QRS: normal [place] Interval: normal ST Wave: normal (ST &T wave abnormality,consider anterior ischemia) Comments: Possible left atrial enlargement Attestation - Physician/ GAUDENCIO Attestation Patient care was provided by Advanced Practice Provider:: No The physician spent face to face time with patient:: Yes Advanced Practice Provider documentation review:: Supervising physician onsite and consulted in the evaluation and care of this patient. The physician did have a face to face encounter with the patient. This chart was documented by the indicated scribe, (Kyaw Barnard Scribe) and accurately reflects the services I performed and decisions made by me, Janet Glaser MD, as attested by the provider's signature.
[2019-07-08] MEDS ORDERED: NS + KCL 40 MEQ 1,000 ML IV ONE (14:45)
[2019-07-08 14:46] LABS: URINE SOURCE CLEAN CATCH
--- NOTE | 2019-07-08 14:47 | Diag Imaging Result Doc PS360 ---
EXAM: CT ABD/PELVIS W/IV CONT ONLY HISTORY: abd pain TECHNIQUE: CT abdomen and pelvis with intravenous contrast COMPARISON: 05/20/2019 FINDINGS: there is thickening to the wall of the distal esophagus with a small hiatal hernia. Trace pericardial fluid. The gallbladder has been removed. No focal hepatic abnormality. No splenomegaly. No inflammation about the pancreas. Normal adrenal glands. No renal masses. No hydronephrosis. Normal aorta. No bowel obstruction. Urinary bladder is distended and appears normal. There is a contraceptive device in the uterus. Uterus is not enlarged. There is a large amount of stool within the rectum. Subcutaneous right lower abdominal mechanical device with leads into the midabdomen anteriorly. IMPRESSION: 1.Small hiatal hernia with possible distal esophagitis 2.Cholecystectomy 3.Likely fecal impaction This exam was performed using automated exposure control, adjustment of mA or kV according to patient size, and/or use of iterative reconstruction technique. Electronically signed by Hebert Soto 07/08/2019 2:45 PM
--- NOTE | 2019-07-08 14:56 | EKG Report ---
Test Performed on : 07/08/2019 2:00:09 PM Test Reason : ER Blood Pressure : / mmHG Vent. Rate : 098 BPM Atrial Rate : 098 BPM P-R Int : 188 ms QRS Dur : 084 ms QT Int : 392 ms P-R-T Axes : 043 060 029 degrees QTc Int : 500 ms Normal sinus rhythm. Possible Left atrial enlargement ST & T wave abnormality, consider anterior ischemia Abnormal ECG When compared with ECG of 09-JUN-2019 18:44, (Unconfirmed) QT has lengthened Unconfirmed Result
[2019-07-08] MEDS: POTASSIUM CHLORIDE 20 MEQ/SWI 20 MEQ/100 ML IVPB IV SCH ×2 (15:00→18:56)
[2019-07-08] MEDS: MORPHINE IV PRN ×3 (15:32→23:55)
[2019-07-08] MEDS: PROTONIX IV SCH (15:36)
[2019-07-08] MEDS: SODIUM CHLORIDE 0.9% INJ SCH (15:37)
[2019-07-08] MEDS: REGLAN IV SCH (15:37)
[2019-07-08] MEDS: HUMALOG (PARKWAY) SUBQ SCH (15:54)
[2019-07-08] MEDS: PHENERGAN IV PRN (18:14)
[2019-07-08] MEDS: SODIUM CHLORIDE 0.9% INJ PRN (18:15)
--- NOTE | 2019-07-08 19:44 | HISTORY AND PHYSICAL ---
PRIMARY CARE PROVIDER: [facility]. [facility]. CHIEF COMPLAINT: Nausea, vomiting, abdominal pain. HISTORY OF PRESENT ILLNESS: Ms. Bobby is a 43-year-old -[place] female, well known to our service with a past medical history of continued nausea, vomiting, dysphagia, esophageal stricture, gastroparesis, status post gastric stimulator, anemia, chronic kidney disease stage 3, insulin-dependent diabetes mellitus type 2, medical noncompliance, who reported for the past 2 days an increase in her nausea, vomiting, and abdominal pain. Reports no BM in over a week and states that she has an appointment in August set up with her doctor at the [facility]. Workup in [facility] ED revealed severe hypokalemia at 1.7, abdomen and pelvis CT with small hiatal hernia with possible distal esophagitis, cholecystectomy, and likely fecal impaction. [facility] ED has given IV Phenergan and requested admission. The patient will be admitted to [facility] ICU with GI followup. We will continue with her Reglan, IV Phenergan and IV PPI, currently n.p.o., and we will replenish her potassium and recheck at 1900. PAST MEDICAL HISTORY: 1. Dysphagia with esophageal stricture, status post dilatation. The patient is not having good results from serial dilatations, will need possible partial esophagectomy or total. 2. Intractable nausea and vomiting. 3. Gastroparesis. 4. Anemia. 5. Chronic kidney disease. 6. Insulin-dependent diabetes mellitus type 2. 7. Medical noncompliance. PAST SURGICAL HISTORY: Cholecystectomy, gastric pacemaker, Port-A-Cath placement, esophageal dilatations, G-tube placement in 2019. FAMILY HISTORY: Positive for diabetes mellitus. SOCIAL HISTORY: Denies tobacco, alcohol or no longer using marijuana. ALLERGIES: No known drug allergies. HOME MEDICATIONS: Zofran, Reglan and Protonix. REVIEW OF SYSTEMS: Twelve-point review of systems completely negative except for those mentioned in HPI. PHYSICAL EXAMINATION: VITAL SIGNS: Temperature is 98 degrees, heart rate 120, respirations 16, blood pressure 116/83. O2 is 100% on room air. GENERAL: Ms. Bobby is a chronically ill-appearing, 43-year-old -[place] female lying on the stretcher in no acute distress. HEENT: Atraumatic, normocephalic. PERRL. NECK: Supple. Trachea midline. CARDIOVASCULAR: S1, S2 appreciated. No murmurs, gallops, or rubs. RESPIRATORY: Lung sounds clear bilaterally. GASTROINTESTINAL: Soft, diffusely tender. Positive bowel sounds. EXTREMITIES: No signs of clubbing or cyanosis. NEUROLOGIC: No focal deficits noted. DIAGNOSTIC DATA: Abdomen and pelvis CT: Small hiatal hernia with possible distal esophagitis, cholecystectomy, likely fecal impaction. EKG: Normal sinus rhythm, possible left atrial enlargement, ST and T-wave abnormalities at 98 beats per minute. LABORATORY DATA: White count 7, hemoglobin and hematocrit 11 and 31, platelet count is 547,000. Sodium 137, potassium 1.7, blood glucose is 212, creatinine 1.2, amylase 110, lipase 33. ASSESSMENT AND PLAN: 1. Intractable nausea and vomiting secondary to diabetic gastroparesis. We will continue Reglan and Phenergan, IV fluids. 2. Severe hypokalemia at 1.7. She will receive 20 mEq of potassium now, and in 2 hours we will recheck at 1900 and continue with IV fluids with potassium in her bags. 3. Chronic kidney disease stage 3 with acute kidney injury. Continue IV fluids. 4. Fluid volume depletion secondary to #1. Continue with IV hydration. 5. Dysphagia history, status post dilatations. [facility]. DISPOSITION: Patient will be transferred to [facility] ICU for followup with GI. Dictated by NELL Jules for Clyde Dominguez MD Addendum: Patient seen and examined by myself. Agree with NELL note. It reflects my assessment and plan. Patient is being admitted to hospital for severe hypokalemia secondary to recurrent nausea and vomiting. Will replenish potassium and will send her to [facility] for GI evaluation. cc: Clyde Dominguez MD [facility]
[2019-07-08] MEDS ORDERED: NS + KCL 40 MEQ 1,000 ML ONE (21:06)
[2019-07-08] MEDS: ZOFRAN IV PRN (23:54)
[2019-07-09] MEDS: HUMALOG (PARKWAY) SUBQ SCH ×5 (00:53→20:12)
[2019-07-09] MEDS: REGLAN IV SCH ×4 (00:53→18:19)
[2019-07-09] MEDS: PHENERGAN IV PRN ×3 (02:41→19:39)
[2019-07-09] MEDS: SODIUM CHLORIDE 0.9% INJ PRN ×3 (02:47→19:40)
[2019-07-09] MEDS: SODIUM CHLORIDE 0.9% INJ SCH ×2 (06:00→12:20)
[2019-07-09] MEDS: PROTONIX IV SCH ×2 (06:00→12:19)
[2019-07-09] MEDS: MORPHINE IV PRN ×4 (06:08→23:14)
[2019-07-09 06:33] LABS: ALB/GLOB RATIO 1.1; ALBUMIN 3.1 g/dL (3.5-5.0); CALCIUM 8.1 mg/dL (8.8-10.2); CREATININE 1.3 mg/dL (0.5-0.9); MAGNESIUM 2.6 mg/dL (1.5-2.7); TOTAL BILIRUBIN 0.53 mg/dL (0.20-1.00); TOTAL PROTEIN 5.9 g/dL (6.3-8.3)
[2019-07-09 06:40] LABS: POTASSIUM 2.2 mmol/L (3.5-5.1)
[2019-07-09 06:44] LABS: BASO# 0.01 X1000 (0.0-0.2); BASO% 0.1 % (0.0-0.8); EOS# 0.01 X1000 (0.0-0.7); EOS% 0.1 % (0.0-10.0); HEMATOCRIT 31.3 % (37.0-47.0); HEMOGLOBIN 10.8 g/dL (12.0-16.0); IMM GRAN% 1.1 % (0.0-0.5); LYMPH# 2.09 X1000 (1.2-3.4); LYMPH% 22.7 % (20.5-51.1); MCH 28.6 PG (27-31); MCHC 34.5 g/dL (33-37); MONO# 0.85 X1000 (0.11-0.59); MONO% 9.2 % (1.7-9.3); MPV 10.8 FL (7.4-10.4); NEUT# 6.13 X1000 (1.4-6.5); NEUT% 66.8 % (42.2-75.2); PLT 518 X1000 (130-400); RBC 3.77 XMIL (4.2-5.4); RDW 21.7 % (11.5-14.5); WBC 9.19 X1000 (4.8-10.8)
[2019-07-09 07:16] LABS: BANDS 2 % (0-1); LYMPHS 32 % (21-51); MONO 2 % (1-9); NRBC 2 % (0-0); SEGS 64 % (42-75)
--- NOTE | 2019-07-09 07:49 | EKG Report ---
Test Performed on : 07/09/2019 06:59:02 AM Test Reason : hypokalemia Blood Pressure : / mmHG Vent. Rate : 093 BPM Atrial Rate : 093 BPM P-R Int : 162 ms QRS Dur : 070 ms QT Int : 402 ms P-R-T Axes : 033 030 -03 degrees QTc Int : 499 ms Normal sinus rhythm. Nonspecific T wave abnormality Prolonged QT Abnormal ECG When compared with ECG of 08-JUL-2019 14:00, (Unconfirmed) No significant change was found Confirmed by Cole BELL, Peterson Patterson ([id number]) on 07/10/2019 7:31:04 AM
[2019-07-09] MEDS: POTASSIUM CHLORIDE 60 MEQ in NS 500 ML IV SCH ×2 (08:28→15:25)
--- NOTE | 2019-07-09 12:58 | GASTROENTEROLOGY CONSULTATION ---
DATE: 07/09/2019 REASON FOR CONSULT: Intractable nausea and vomiting. HISTORY OF PRESENT ILLNESS: Ms. Bobby is a 43-year-old female who has frequently admitted to the hospital with nausea, vomiting and dysphagia.She has the history esophageal stricture, gastroparesis status post gastric pacemaker, GERD, prior PEG placement, and esophagitis. She was recently in the hospital and Dr. Cano performed an EGD on her on 06/12/2019. Findings were strictures with an inner diameter of 5 mm and it was dilated. The patient was referred to [facility] for serial dilations with fluoroscopy. Since the discharge, she has had multiple serial dilations. An abdomen CT was done on 07/08, which showed small hiatal hernia with possible distal esophagitis, cholecystectomy, and likely fecal impaction. The patient is currently complaining of intractable nausea and vomiting. She has denied having any bowel movements today. PAST MEDICAL HISTORY: Dysphagia with esophageal strictures status post dilation, intractable nausea and vomiting, gastroparesis, anemia, chronic kidney disease, insulin- dependent diabetes type 2. PAST SURGICAL HISTORY: Cholecystectomy, prior PEG tube placement which has been removed, gastric pacemaker and Port-A-Cath. SOCIAL HISTORY: She is a former smoker. Denies any alcohol. She did smoke marijuana in the past. ALLERGIES: No known drug allergies. HOME MEDICATIONS: Zofran 4 mg p.o. q.6 hours as needed, Reglan 10 mg a.c. and at bedtime, and Protonix 40 mg 1 tablet daily. REVIEW OF SYSTEMS: As per HPI, otherwise 12 point review of system is negative. PHYSICAL EXAMINATION: Vital Signs: Temperature 96.7, pulse is 109, respirations 14, blood pressure 106/79, oxygen saturation 100% on room air. Her weight is 98 pounds. BMI is 16.9 kg/m2. general: She is alert, oriented x3, was refusing to answers questions and in no acute distress. She says she was feeling sleepy. HEENT: Pale conjunctivitis. No icterus. PERRLA. Neck: Supple. Lungs: Clear to auscultation in the anterior bashir. Cardiovascular: The patient is tachycardic. Abdomen: Soft, nondistended, nontender. Active bowel sounds heard in all 4 quadrants gastric pacemaker on the right side of the abdomen. Extremities: No cyanosis, clubbing, or edema. Pedal pulses 2+ present bilaterally. Neurological: Alert, oriented x3. Nonfocal. Cranial nerves 2-12 grossly intact. LABORATORIES: WBC 9.19, RBC 3.77, hemoglobin 10.8, hematocrit 31.3, platelet count is 518. Sodium 140, potassium 2.2, chloride 104, carbon dioxide 20, anion gap 16, BUN 9, creatinine 1.3, glucose 126, calcium 8.1, magnesium 2.6, total bilirubin 0.53, AST 18, ALT is 8, alkaline phosphatase is 75, albumin is 3.1. Urinalysis showed trace of protein and trace of WBC. Acetone level was small. Abdominal CT and pelvis showed small hiatal hernia with possible distal esophagitis, cholecystectomy, and likely fecal impaction. IMPRESSION: 1. Intractable nausea and vomiting. 2. Dysphagia. 3. Esophageal stricture. 4. Anemia. 5. Gastroparesis 6. Insulin-dependent diabetes 7. Acute kidney injury. 8. Hypokalemia. 9. Noncompliance with medications and treatment plan PLAN: The plan is to transfer patient to [facility] for further evaluation and treatment. We will continue with antiemetics Phenergan 25 mg every 6 hours, Reglan 5 mg every 6 hours and Zofran 4 mg every 4 hours p.r.n. The patient is receiving IV fluids with potassium of 60 mEq at 132.5 mL/hours. He potassium today was 2.2. Patient is on GI prophylaxis Protonix 40 mg BID. We will continue to monitor the patient's CBC, BMP, and follow the plan of care for Primary Care Doctor and will transfer the patient to [facility]. This plan was discussed with Dr. Cano. Thank you for your consult. Please call us for any further questions. Dictated by NELL Anthony for Charles Cano MD cc: Clyde Dominguez MD Physician Attestation I have seen and examined the patient. I have discussed and reviewed the the note by Emily CAMEJO and agree with findings and plan as documented. In brief, Ms. Kaleigh Bobby is a 43 year old woman with poorly controlled IDDM2, gastroparesis s/p gastric pacemaker, h/o NSAID-induced esophageal stricture and PUD who presents with recurrent dysphagia, N/V, hypokalemia, and CATERINA. She has failed serial dilations and is non-compliant with liquid diet and medications. Replete lytes, antiemetics, prn, clear liquids as tolerated only; do not advance diet. Recommend transfer to [facility] for surgical evaluation for esophagectomy. Discussed plan with family, patient, and primary team. MTDD
--- NOTE | 2019-07-09 14:32 | PROGRESS NOTE ---
DATE: 07/09/2019 SUBJECTIVE: Patient reports still feeling nauseated. Denies any other complaints. OBJECTIVE: Vital Signs: Temperature 96.7 degrees, heart rate 109, respiratory rate 14, blood pressure 106/79, O2 saturation 100% on room air. General Examination: This is a 43-year-old female, lying in bed in no acute distress, chronically ill- appearing. HEENT: Head is normocephalic, atraumatic. Neck: No JVD noted. No carotid bruits. No lymphadenopathy. No thyromegaly. Cardiovascular exam: S1, S2 heard. No murmurs, gallops, or rubs. Regular rate and rhythm. Respiratory exam: Clear bilaterally to auscultation. No work of breathing or using accessory muscles. Abdomen: Soft, diffusely tender to palpation. There are no signs of rebound. Extremities: No clubbing, cyanosis, or edema. Peripheral pulses present in both legs. Neurological exam: Patient is awake alert. Moves 4 extremities. LABORATORY DATA: CBC shows white cell count 9.19, hemoglobin 10.8, hematocrit 31.3, platelets 518, with sodium 140, potassium 2.2, creatinine 1.3. ASSESSMENT AND PLAN: 1. Intractable nausea and vomiting, secondary to diabetic gastroparesis. Patient is on Reglan and Phenergan. She has gastric pacemaker, but continues with this problem. We will continue with the fluids. 2. Severe hypokalemia. Potassium was 1.7 and today is 2.2. We will replenish potassium again. 3. Recurrent kidney disease stage II. We will continue with intravenous fluids and check basic metabolic panel daily. 4. Dysphagia status post dilatation. Patient has been evaluated by Gastroenterology. They recommend transfer to [facility] because of noncompliance with followup. We will follow recommendations. Addendum: I called [facility] to transfer patient but they are on diversion. Will see if they have beds tomorrow. cc: Clyde Dominguez MD [facility]ITAL[facility]
[2019-07-09] MEDS: ZOFRAN IV PRN (15:25)
[2019-07-10] MEDS: REGLAN IV SCH ×5 (00:35→23:27)
[2019-07-10] MEDS: PROTONIX IV SCH ×2 (00:35→20:39)
[2019-07-10] MEDS: MORPHINE IV PRN ×5 (04:54→23:34)
[2019-07-10] MEDS: ZOFRAN IV PRN ×2 (04:54→10:41)
[2019-07-10] MEDS: HUMALOG (PARKWAY) SUBQ SCH (06:00)
[2019-07-10 06:44] LABS: ALBUMIN 2.7 g/dL (3.5-5.0); CALCIUM 7.4 mg/dL (8.8-10.2); CREATININE 1.5 mg/dL (0.5-0.9); PHOSPHORUS 2.2 mg/dL (2.7-4.5); POTASSIUM 3.9 mmol/L (3.5-5.1)
[2019-07-10] MEDS ORDERED: SODIUM PHOSPHATE 35 MMOL in NS 250 ML IV ONE (10:00)
[2019-07-10] MEDS ORDERED: NS 1,000 ML IV ONE (10:33)
--- NOTE | 2019-07-10 11:02 | PROGRESS NOTE ---
DATE: 07/10/2019 SUBJECTIVE: The patient reports feeling fine, less nauseated. She actually wants to try some liquids. OBJECTIVE: Vital Signs: Temperature 98.2 degrees, heart rate 105, respiratory rate 15, blood pressure 116/82, O2 saturation 100% on room air. General Examination: This is a chronically ill- appearing 43-year-old female lying in bed, in no acute distress. Cardiovascular: S1, S2 heard. No murmurs, gallops, or rubs. Regular rate and rhythm. Respiratory: Clear bilaterally to auscultation. No work of breathing or using accessory muscles. Abdomen: Soft. Nontender to palpation. Bowel sounds present. No organomegaly. Extremities: No clubbing, cyanosis, or edema. Peripheral pulses present in both legs. Neurologic: The patient is alert and oriented x3. Moves all 4 extremities. LABORATORY DATA: Potassium is 3.9 today with a creatinine of 1.5. Phosphorus 2.2. Normal magnesium. ASSESSMENT AND PLAN: 1. Intractable nausea and vomiting. The patient reports getting better. The patient has diabetic gastroparesis and pacemaker. The patient is on Reglan and Phenergan. The patient requests a clear liquid diet. We will provide that. We will continue to monitor. 2. Severe hyperkalemia. Potassium is back to normal today. 3. Chronic kidney disease, stage 2. Creatinine is getting slightly elevated. She was not making enough urine so we will provide 1 L normal saline bolus, and we will continue to monitor BMP daily. 4. Dysphagia, status post dilatation. The patient was evaluated by GI this time and also before, and she has severe esophageal strictures. Not even a pediatric endoscope can be passed so they recommended transfer to [facility] where she was seen by Dr. Ford. I called yesterday but they are on diversion and they do not have any bed, so we will call today and see if we can transfer her. 5. Disposition. We will send this patient to a regular floor today. cc: Clyde Dominguez MD
[2019-07-10] MEDS: HUMALOG SUBQ SCH ×3 (11:25→20:32)
[2019-07-10] MEDS: PHENERGAN IV PRN ×2 (12:14→18:31)
[2019-07-10] MEDS: SODIUM CHLORIDE 0.9% INJ PRN (12:14)
--- NOTE | 2019-07-10 13:22 | PROVIDER PROGRESS NOTE ---
Progress Note S: No acute overnight events. Nausea and vomiting slightly improved. Patient requesting liquids. O: Last Vital Signs Temp 97.4 F L 07/10/19 11:23 Pulse 110 H 07/10/19 11:23 Resp 15 07/10/19 07:36 BP 116/87 07/10/19 11:23 Pulse Ox 100 07/10/19 11:23 Height 5 ft 4 in Weight 106 lb 8 oz GEN: awake, alert, chronically ill-appearing HEENT: anicteric, MMM NECK: supple, NAD CV: tachycardic, regular, no murmurs ABD: soft NT/ND, NABS EXT: no cce NEURO: nonfocal LABS: 07/10/19 05:19 Sodium 145 Potassium 3.9 D Chloride 114 H Carbon Dioxide 17 L BUN 10 Creatinine 1.5 H Glucose 97 PROBLEM LIST - Dysphagia - Intractable N/V - Esophageal stricture - History of PUD - Gastroparesis - Anemia - CATERINA - Hypokalemia - IDDM2 ASSESSMENT AND PLAN: Kaleigh Bobby is a 43-year-old woman with a complicated history of depression, poorly controlled insulin-dependent diabetes, gastroparesis status post gastric pacemaker, history of NSAID-induced PUD, esophageal stricture with severe esophagitis requiring serial dilations at [facility], and chronic anemia who re- presents with inability to tolerate p.o. with nausea, vomiting, epigastric pain and dysphagia. Labs notable for hypokalemia, CATERINA, anemia, and low bicarb. Low K resolved. Continue IVFs, PPI IV BID, antiemetics. Clears as tolerate. Patient needs surgical evaluation for esophagectomy given lack of improvement with serial dilations and supportive care.
[2019-07-11] MEDS: PHENERGAN IV PRN ×3 (02:16→18:12)
[2019-07-11 05:45] LABS: ALBUMIN 2.2 g/dL (3.5-5.0); CALCIUM 7.1 mg/dL (8.8-10.2); CREATININE 1.3 mg/dL (0.5-0.9); MAGNESIUM 1.9 mg/dL (1.5-2.7); PHOSPHORUS 3.9 mg/dL (2.7-4.5); POTASSIUM 2.7 mmol/L (3.5-5.1)
[2019-07-11] MEDS: HUMALOG SUBQ SCH ×4 (06:13→21:42)
[2019-07-11] MEDS: REGLAN IV SCH ×4 (06:48→23:42)
[2019-07-11] MEDS: MORPHINE IV PRN ×4 (06:49→21:41)
[2019-07-11] MEDS: SODIUM CHLORIDE 0.9% INJ PRN ×2 (09:17→18:12)
[2019-07-11] MEDS: PROTONIX IV SCH ×2 (09:20→20:35)
[2019-07-11] MEDS: SODIUM CHLORIDE 0.9% INJ SCH (09:20)
--- NOTE | 2019-07-11 10:58 | GASTROENTEROLOGY PROGRESS NOTE ---
DATE: 07/11/2019 SUBJECTIVE: Ms. Bobby 43 year old female resting in bed. She complained of being nauseated and was trying to eat breakfast but not feel like eating it. She is on clear liquids. She denied having any bowel movements today. OBJECTIVE: Vital Signs: Temperature 98.2 degrees, pulse is 103, respirations 19, blood pressure is 116/89, oxygen saturation 100% on room air. Her weight is 115 pounds, BMI is 20.1 kg/m2. HEENT: Pale conjunctivae. No icterus. PERRL. Neck: Supple. Lungs: Clear to auscultation in the anterior bashir. Cardiovascular: The patient is tachycardic. Abdomen: Soft, nondistended. Generalized tenderness. The patient has a gastric pacemaker on the right side of the abdomen. Extremities: No cyanosis, clubbing, or edema. Pedal pulses 2+ present bilaterally. Neurologic: Alert, oriented x3. LABORATORY DATA: WBCs 9.19, RBC 3.77, hemoglobin 10.8, hematocrit is 31.3, platelet count is 518,000. Sodium 133, potassium is 2.7, chloride is 105, carbon dioxide 17, anion gap is 11, BUN 7, creatinine is 13, glucose 92, calcium 7.1, phosphorus 3.9, magnesium 1.9, albumin is 2.2. Urinalysis on 07/08/2019 showed urine protein 1+ and trace of WBC. IMPRESSION: 1. Dysphagia. 2. Intractable nausea, vomiting. 3. Esophageal stricture. 4. History of peptic ulcer disease. 5. Gastroparesis. 6. Anemia. 7. Constipation 8. Hypokalemia. 9. Insulin-dependent type 2 diabetes. 10. Acute kidney injury. PLAN: We are planning to send the patient to either to [facility] or to [facility] for surgical evaluation for esophagectomy due to her lack of improvement with serial dilation and supportive care. The patient's hemoglobin is 10.8 and hematocrit is 31.3, and her sodium is 133, potassium is 2.7. The patient is hypokalemic, and hyponatremia, Patient is receiving IV fluids normal saline at 75 mL. She is on MiraLAX for her bowel regimen twice a day. GI prophylaxis, Protonix 40 mg twice a day and chewable multivitamin Centrum silver for her anemia. Patient is on antiemetic Reglan 5 mg scheduled, Phenergan 25 mg every 6 hours, Phenergan 25 mg q.6 and Zofran 4 mg q.4 hours as needed for her nausea and vomiting. Her diabetes is controlled by her insulin Humalog per PCP on sliding scale. The patient is still complaining of nausea, vomiting, and abdominal pain. She is on clear liquid diet, we will advance as tolerated. We are awaiting for the availability of a bed either at [facility] or at [facility]. We will continue to monitor her CBC and BMP, and follow the plan of care per PCP. This plan was discussed with Dr. Haq. Please call us with any further questions or concerns. Dictated by NELL Anthony for Yandel Haq MD cc: MD Clyde Villa MD I have seen and examined the patient myself. I agree with the above plan of care. The above plan of care was discussed with the patient and all questions were answered. Please call us with any further questions. MTDNyasia
[2019-07-11] MEDS: NS 1,000 ML IV SCH (11:25)
[2019-07-11] MEDS: MIRALAX PO SCH ×2 (11:25→20:35)
[2019-07-11] MEDS: CENTRUM TABLET PO SCH (11:25)
--- NOTE | 2019-07-11 12:59 | PROGRESS NOTE ---
DATE: 07/11/2019 SUBJECTIVE: The patient reports feeling weak and more nauseated. OBJECTIVE: Vital Signs: Temperature 98.2 degrees, heart rate 103, respiratory rate 18, blood pressure 116/89, O2 saturation 100% on room. General: This is a chronically ill-appearing, 43- year-old, female, lying in bed in no acute distress. Cardiovascular: S1, S2 heard. No murmurs, gallops, or rubs. Regular rate and rhythm. Respiratory: Clear bilaterally to auscultation. No work of breathing or using accessory muscles. Abdomen: Soft, nontender to palpation. Bowel sounds present. No organomegaly. Extremities: No clubbing, cyanosis, or edema. Peripheral pulses present in both legs. Neurological: The patient is alert and oriented x3. Moves all 4 extremities. LABORATORY DATA: Reviewed. Potassium is 2.7 today. ASSESSMENT: 1. Intractable nausea and vomiting. 2. Hyperkalemia. 3. Chronic kidney disease stage 2. 4. Dysphagia. PLAN: The patient started feeling sick again. Potassium is going down. At this point, we are going to replenish potassium, but plan from GI standpoint is to send this patient to [facility]. Unfortunately, this hospital has been on diversion for the last 2 days. Will call today to see if there is any bed available. For chronic kidney disease, the patient is at her baseline, and will continue with Reglan and Phenergan for nausea and vomiting. cc: Clyde Dominguez MD MTDD
[2019-07-11] MEDS: POTASSIUM CHLORIDE 60 MEQ in NS 500 ML IV SCH ×2 (13:30→20:35)
[2019-07-12] MEDS: PHENERGAN IV PRN ×4 (00:14→22:46)
[2019-07-12] MEDS: MORPHINE IV PRN ×4 (04:36→22:46)
[2019-07-12] MEDS: NS 1,000 ML IV SCH ×2 (05:02→16:58)
[2019-07-12] MEDS: REGLAN IV SCH ×4 (05:22→23:49)
[2019-07-12 06:01] LABS: ALBUMIN 2.2 g/dL (3.5-5.0); CALCIUM 7.3 mg/dL (8.8-10.2); CREATININE 1.2 mg/dL (0.5-0.9); MAGNESIUM 1.8 mg/dL (1.5-2.7); PHOSPHORUS 2.8 mg/dL (2.7-4.5); POTASSIUM 4.7 mmol/L (3.5-5.1)
[2019-07-12] MEDS: HUMALOG SUBQ SCH ×4 (06:28→22:18)
[2019-07-12] MEDS: PROTONIX IV SCH ×2 (10:31→22:17)
[2019-07-12] MEDS: SODIUM CHLORIDE 0.9% INJ SCH (10:32)
[2019-07-12] MEDS: CENTRUM TABLET PO SCH (10:32)
[2019-07-12] MEDS: MIRALAX PO SCH ×2 (10:32→22:18)
--- NOTE | 2019-07-12 13:44 | PROGRESS NOTE ---
DATE: 07/12/2019 SUBJECTIVE: Patient reports less weak, and more alert and awake. OBJECTIVE: Vital Signs: Temperature 97.9 degrees, heart rate 99, respiratory 14, blood pressure 123/86 and O2 saturation 100% on room air. General: This is a chronically ill- appearing 43-year- old female lying in bed in no acute distress. Cardiovascular: S1, S2 heard. No murmurs, gallops, or rubs. Regular rate and rhythm. Respiratory: Clear bilaterally to auscultation. No work of breathing or using accessory muscles. Abdomen: Soft. Nontender to palpation. Bowel sounds present. No organomegaly. Extremities: No clubbing, cyanosis, or edema. Peripheral pulses present in both legs. Neurological: Patient is alert and oriented x3. Moves all 4 extremities. LABORATORY DATA: Reviewed. Potassium 4.7. ASSESSMENT AND PLAN: 1. Intractable nausea and vomiting. 2. Hypokalemia. 3. Chronic kidney disease stage 2. 4. Dysphagia. PLAN: At this point, patient is feeling better. We have replenished potassium, and is back to normal today. Unfortunately, because this condition keeps happening, we have tried to send this patient to [facility] but they have been on diversion the last 2 days. While we wait for a bed and try to send him over there, according to GI, we will start TPN. Kidney disease. Creatinine is back to his baseline. We will continue Reglan for Phenergan for nausea and vomiting. cc: Clyde Dominguez MD MTDD
--- NOTE | 2019-07-12 14:52 | GASTROENTEROLOGY PROGRESS NOTE ---
DATE: 07/12/2019 SUBJECTIVE: Ms. Bobby is a 43-year-old -[place] female resting in bed, complained of nausea but denied vomiting and bowel movements today. OBJECTIVE: Vital Signs: Temperature 97.7 degrees, pulse 99, respirations 14, blood pressure 123/86, oxygen saturation 100% on room air. The patient's weight is 112 pounds. BMI 19.3 kg/m2. General: She is alert, oriented x3, in no acute distress. HEENT: Pale conjunctivae, no icterus. Neck: Supple. Lungs: Clear to auscultation in the anterior bashir. Cardiovascular: The patient is tachycardic. Abdomen: Soft, nontender, nondistended. Gastric pacemaker on the right side of the abdomen. Extremities: No cyanosis, clubbing, or edema noted. Pulses 2+ present bilaterally. Neurologic: Alert, oriented x3. LABORATORY DATA: WBCs 9.19, RBC 3.77, hemoglobin 10.8, hematocrit 31.3, platelet count 518,000. Sodium 140, potassium 4.7, chloride 104, carbon dioxide 16, anion gap 10, BUN 5, creatinine 1.2, glucose 85, calcium 7.3, phosphorus 2.8, magnesium 1.8, albumin 2.2. IMPRESSION: Dysphagia Intractable nausea/vomiting Esophageal strictures History of PUD Gastroparesis Anemia Constipation Insulin dependent type 2 diabetes CATERINA PLAN: We are still awaiting for the availability of bed either at [facility] or at [facility] for the surgical evaluation of esophagectomy due to the patient's lack of improvement with serial dilations and supportive care. The patient is still complaining of nausea, but her vomiting is under control. Her sodium and potassium levels have been improving. Sodium is 140, potassium is 4.7. We will continue to follow the current plan of care, she is receiving IV fluids normal saline at 75. We suggest she would benefit with TPN for her nutrition. For her nausea and vomiting she is receiving Zofran 4 mg every 4 hours, Phenergan 25 mg every 6 hours as needed and Reglan 5 mg every 6 hours scheduled. We will continue her Protonix 40 mg IV twice a day. She is also on Centrum Silver multivitamin for her anemia. We will continue to follow her CBCs and BMPs and follow the plan of care per PCP. This plan was discussed with Dr. Cano. Please call us for any further questions or concerns. Dictated by NELL Anthony for Charles Cano MD cc: Clyde Dominguez MD Physician Attestation I have seen and examined the patient. I have discussed and reviewed the the note by Emily CAMEJO and agree with findings and plan as documented. In brief, Ms. Bobby is a 43 year old woman who represents with N/V, dysphagia from known esophageal stricture. Last EGD with dilation was earlier in June, which revealed tight stricture with inability to pass pediatric endoscope. She is tolerating clears. Correct lytes prn. Recommend TPN and transfer to [facility] for surgical evaluation. MTDD
[2019-07-12] MEDS: SODIUM CHLORIDE 0.9% INJ PRN (16:42)
[2019-07-12] MEDS: ANUSOL-HC CREAM PR SCH (22:17)
[2019-07-13] MEDS: ZOFRAN IV PRN ×2 (04:13→08:57)
[2019-07-13] MEDS: MORPHINE IV PRN ×5 (04:13→21:40)
[2019-07-13] MEDS: NS 1,000 ML IV SCH (05:22)
[2019-07-13] MEDS: REGLAN IV SCH ×3 (06:10→17:09)
[2019-07-13] MEDS: HUMALOG SUBQ SCH ×4 (06:11→21:35)
[2019-07-13] MEDS: PHENERGAN IV PRN ×3 (06:37→18:43)
[2019-07-13 07:05] LABS: BASO# 0.02 X1000 (0.0-0.2); BASO% 0.4 % (0.0-0.8); EOS# 0.04 X1000 (0.0-0.7); EOS% 0.8 % (0.0-10.0); HEMATOCRIT 23.9 % (37.0-47.0); HEMOGLOBIN 7.6 g/dL (12.0-16.0); IMM GRAN% 1.9 % (0.0-0.5); LYMPH# 1.96 X1000 (1.2-3.4); LYMPH% 37.1 % (20.5-51.1); MCH 28.6 PG (27-31); MCHC 31.8 g/dL (33-37); MCV 89.8 FL (81-99); MONO# 0.47 X1000 (0.11-0.59); MONO% 8.9 % (1.7-9.3); MPV 10.8 FL (7.4-10.4); NEUT% 50.9 % (42.2-75.2); PLT 347 X1000 (130-400); RBC 2.66 XMIL (4.2-5.4); RDW 22.4 % (11.5-14.5); WBC 5.29 X1000 (4.8-10.8)
[2019-07-13 07:12] LABS: AGAP 9; ALBUMIN 2.2 g/dL (3.5-5.0); BUN 3 mg/dL (8-22); CALCIUM 7.1 mg/dL (8.8-10.2); CHLORIDE 114 mmol/L (98-107); COSMO 274; CREATININE 1.1 mg/dL (0.5-0.9); ESTIMATED GFR > 60; GLUCOSE 88 mg/dL (70-104); PHOSPHORUS 2.9 mg/dL (2.7-4.5); POTASSIUM 3.8 mmol/L (3.5-5.1); PREALBUMIN 11.7 mg/dL (20-40); SODIUM 139 mmol/L (136-145); TCO2 16 mmol/L (25-35)
--- NOTE | 2019-07-13 07:13 | PROGRESS NOTE ---
DATE: 07/13/2019 SUBJECTIVE: The patient definitely continues to be more alert and awake, complains of some abdominal pain. OBJECTIVE: Vital Signs: Temperature 97.8 degrees, heart rate 99, respiratory rate 19, blood pressure 119/90, O2 saturation 100% on room air. General examination: This is a chronically ill- appearing, 43-year-old female lying in bed, in no acute distress. Cardiovascular: S1, S2 heard. No murmurs, gallops, or rubs. Regular rate and rhythm. Respiratory: Clear bilaterally to auscultation. No work of breathing or using accessory muscles. Abdomen: Soft, nontender to palpation. Bowel sounds present. No organomegaly. Extremities: No clubbing, cyanosis, or edema. Peripheral pulses present in both legs. Neurological: The patient alert and oriented x3. Moves 4 extremities. LABORATORY DATA: Is still pending. We are going to check CBC, renal profile and prealbumin. ASSESSMENT AND PLAN: 1. Intractable nausea and vomiting. 2. Esophageal strictures. 3. Hypokalemia. 4. Chronic kidney disease stage 2. PLAN: At this point, patient looks to be more stable. We do not have the results of renal profile but will replete potassium as needed. GI agreed to start TPN on this patient. We are going to consult dietitian today for that. Ultimately what we need to do is to send this patient to [facility] as the patient has a gastric pacemaker. Patient continues to have vomiting that make her to be very hypokalemic. In the meantime, the long-term plan is to probably perform esophagectomy. Will try to call [facility] today. Hopefully they are not on diversion today. We will continue with Reglan and Phenergan for nausea and vomiting. Addendum: I was called by nurse to inform me patient was started on TPN this afternoon but she found out family members were bringing him regular food like burgers and fries that will not help with her diabetic gastroparesis at all. cc: Clyde Dominguez MD [facility]PITALNyasia
[2019-07-13] MEDS: MIRALAX PO SCH ×2 (10:59→21:37)
[2019-07-13] MEDS: PROTONIX IV SCH ×2 (10:59→21:36)
[2019-07-13] MEDS: CENTRUM TABLET PO SCH (10:59)
[2019-07-13 11:23] LABS: INR 1.17; PROTIME 15.1 Seconds (11.0-16.0)
[2019-07-13] MEDS: ANUSOL-HC CREAM PR SCH ×2 (13:01→21:36)
[2019-07-13 14:42] LABS: AGAP 10; BUN 3 mg/dL (8-22); CHLORIDE 114 mmol/L (98-107); CHOLESTEROL 106 mg/dL (0-200); COSMO 275; CREATININE 1.1 mg/dL (0.5-0.9); ESTIMATED GFR > 60; GLUCOSE 78 mg/dL (70-104); GOT 15 U/L (10-30); MAGNESIUM 1.6 mg/dL (1.5-2.7); PHOSPHORUS 2.8 mg/dL (2.7-4.5); POTASSIUM 3.7 mmol/L (3.5-5.1); PREALBUMIN 10.7 mg/dL (20-40); SODIUM 140 mmol/L (136-145); TCO2 16 mmol/L (25-35); TRIGLYCERIDES 47 mg/dL (35-135)
[2019-07-13 14:50] LABS: CALCIUM 6.9 mg/dL (8.8-10.2)
[2019-07-13] MEDS ORDERED: CALCIUM GLUCONATE PO ONE (15:13)
[2019-07-13] MEDS: TPN ELECTROLYTES IV SCH ×10 (15:28)
[2019-07-13] MEDS: [UNRECOGNIZED DRUG - OTHER] IV SCH ×10 (15:28)
[2019-07-13] MEDS: LIPOSYN 20% 250 ML IV SCH (15:28)
[2019-07-13] MEDS: MAGNESIUM SULFATE IV SCH ×10 (15:28)
[2019-07-13] MEDS: CALCIUM GLUCONATE IV SCH ×10 (15:28)
[2019-07-13] MEDS ORDERED: CALCIUM GLUCONATE 2 GM in NS 100 ML IV ONE (16:34)
[2019-07-13] MEDS: CALTRATE 600 PO SCH (21:37)
[2019-07-14] MEDS: REGLAN IV SCH ×5 (00:02→23:09)
[2019-07-14] MEDS: PHENERGAN IV PRN ×4 (00:43→18:49)
[2019-07-14] MEDS: MORPHINE IV PRN ×6 (00:44→23:10)
[2019-07-14 05:24] LABS: BASO# 0.02 X1000 (0.0-0.2); BASO% 0.3 % (0.0-0.8); EOS# 0.05 X1000 (0.0-0.7); EOS% 0.8 % (0.0-10.0); HEMOGLOBIN 7.3 g/dL (12.0-16.0); IMM GRAN# 0.08 X1000 (0.0-0.04); IMM GRAN% 1.2 % (0.0-0.5); LYMPH# 2.85 X1000 (1.2-3.4); LYMPH% 43.8 % (20.5-51.1); MCH 28.6 PG (27-31); MCHC 31.7 g/dL (33-37); MCV 90.2 FL (81-99); MONO% 9.2 % (1.7-9.3); MPV 10.8 FL (7.4-10.4); NEUT% 44.7 % (42.2-75.2); PLT 334 X1000 (130-400); RBC 2.55 XMIL (4.2-5.4); RDW 22.5 % (11.5-14.5)
[2019-07-14 05:29] LABS: ALBUMIN 2.1 g/dL (3.5-5.0); CALCIUM 7.7 mg/dL (8.8-10.2); CREATININE 1.2 mg/dL (0.5-0.9); PHOSPHORUS 3.9 mg/dL (2.7-4.5); POTASSIUM 4.1 mmol/L (3.5-5.1)
[2019-07-14] MEDS: HUMALOG SUBQ SCH ×4 (07:12→22:46)
[2019-07-14] MEDS: PROTONIX IV SCH ×2 (10:32→22:44)
[2019-07-14] MEDS: CALTRATE 600 PO SCH ×2 (10:32→22:44)
[2019-07-14] MEDS: CENTRUM TABLET PO SCH (10:32)
[2019-07-14] MEDS: MIRALAX PO SCH ×2 (10:32→22:44)
[2019-07-14] MEDS: ANUSOL-HC CREAM PR SCH ×2 (10:35→22:51)
[2019-07-14] MEDS: TPN ELECTROLYTES IV SCH ×10 (15:15)
[2019-07-14] MEDS: [UNRECOGNIZED DRUG - OTHER] IV SCH ×10 (15:15)
[2019-07-14] MEDS: MAGNESIUM SULFATE IV SCH ×10 (15:15)
[2019-07-14] MEDS: LIPOSYN 20% 250 ML IV SCH (15:15)
[2019-07-14] MEDS: CALCIUM GLUCONATE IV SCH ×10 (15:15)
--- NOTE | 2019-07-14 16:19 | PROGRESS NOTE ---
DATE: 07/14/2019 SUBJECTIVE: Patient reports feeling better. Not nauseated. The patient has been started on TPN yesterday. As per nursing staff, as we mentioned in our previous note from yesterday, she was found out to have some regular food like burgers and fries brought by family member. She reports that she was not eating too much of those, and she did not have any vomiting. OBJECTIVE: Vital Signs: Temperature degrees, heart rate 110, respiratory rate 14, blood pressure 117/87. O2 saturation 100% on room air. General: This is a chronically ill-appearing, 43-year- old female lying in bed, in no acute distress. Cardiovascular: S1, S2 heard. No murmurs, gallops, or rubs. Regular rate and rhythm. Respiratory: Clear bilaterally to auscultation. No work of breathing or using accessory muscles. Abdomen: Soft, a little bit distended but nontender to palpation. Bowel sounds present. No organomegaly. Extremities: No clubbing, cyanosis, or edema. Peripheral pulses present in both legs. Neurological: Patient alert, oriented x3. Moves 4 extremities. LABORATORY DATA: Potassium is 4.1 today. Hemoglobin 7.3. ASSESSMENT AND PLAN: 1. Intractable nausea and vomiting. 2. Diabetic gastroparesis status post gastric pacemaker placement in [facility]. 3. Esophageal strictures. 4. Hypokalemia. 5. Chronic kidney disease stage 2. 6. Anemia of chronic disease. PLAN: This patient at presentation was admitted to the hospital because of intractable nausea and vomiting, and her potassium was found out to be 1.7. The potassium was repleted, of course, and dropped again when she started vomiting. Also at this point I do not know how much outside the hospital food she is eating. That was documented by the nurses, but the fact is that this patient has esophageal strictures, and she has been seen here in the hospital by Dr. Cano, and she has developed severe esophageal strictures that are difficult to treat. Even though they have tried pediatric endoscope, they were not able to pass. Recommendation from GI from day #1 is to try to transfer to [facility] to GI service. We have called [facility] a few times, and they are having a diversion. We will try to call tomorrow. As per GI recommendation, we have restarted TPN. They are not planning to do any procedure for the reason mentioned above. Her hemoglobin is getting low, and in case she reaches 7 or below, we will transfuse 1 unit of blood. We will continue to monitor this patient. She has been recommended not to eat anything outside the hospital. She acknowledged understanding. We will continue with Phenergan and Reglan for recurring nausea. cc: Clyde Dominguez MD
[2019-07-15] MEDS: PHENERGAN IV PRN ×4 (01:25→21:31)
[2019-07-15] MEDS: MORPHINE IV PRN ×4 (03:56→21:31)
[2019-07-15 05:27] LABS: BASO# 0.01 X1000 (0.0-0.2); BASO% 0.2 % (0.0-0.8); EOS# 0.04 X1000 (0.0-0.7); EOS% 0.8 % (0.0-10.0); HEMATOCRIT 21.8 % (37.0-47.0); IMM GRAN# 0.05 X1000 (0.0-0.04); LYMPH# 2.27 X1000 (1.2-3.4); LYMPH% 43.2 % (20.5-51.1); MCH 28.9 PG (27-31); MCHC 32.1 g/dL (33-37); MCV 90.1 FL (81-99); MONO# 0.41 X1000 (0.11-0.59); MONO% 7.8 % (1.7-9.3); MPV 10.5 FL (7.4-10.4); NEUT# 2.48 X1000 (1.4-6.5); PLT 311 X1000 (130-400); RBC 2.42 XMIL (4.2-5.4); RDW 22.4 % (11.5-14.5); WBC 5.26 X1000 (4.8-10.8)
[2019-07-15 05:45] LABS: ALBUMIN 2.1 g/dL (3.5-5.0); CALCIUM 7.1 mg/dL (8.8-10.2); CREATININE 1.2 mg/dL (0.5-0.9); PHOSPHORUS 4.4 mg/dL (2.7-4.5); POTASSIUM 3.9 mmol/L (3.5-5.1)
[2019-07-15] MEDS: REGLAN IV SCH ×3 (06:19→20:06)
[2019-07-15] MEDS: HUMALOG SUBQ SCH ×3 (06:21→21:33)
[2019-07-15] MEDS: PROTONIX IV SCH ×2 (08:11→21:32)
[2019-07-15] MEDS: ANUSOL-HC CREAM PR SCH ×2 (08:11→21:33)
[2019-07-15] MEDS: CALTRATE 600 PO SCH ×2 (08:12→21:32)
[2019-07-15] MEDS: MIRALAX PO SCH ×2 (08:20→20:32)
[2019-07-15] MEDS ORDERED: D10W 1,000 ML IV SCH (09:30)
[2019-07-15] MEDS: CENTRUM TABLET PO SCH (10:30)
--- NOTE | 2019-07-15 12:28 | GASTROENTEROLOGY PROGRESS NOTE ---
DATE: 07/15/2019 SUBJECTIVE:: Ms. Bobby is a 43-year-old female resting in bed. Denied any nausea, vomiting, but complained of mild generalized abdominal pain. OBJECTIVE: Vital Signs: Temperature 98.5 degrees, pulse 107, respirations 17, blood pressure 123/87, oxygen saturation 100% on room air. General: She is alert, oriented x3, and in no acute distress. HEENT: Pale conjunctivae. No icterus. PERRL. Neck: Supple. Lungs: Clear to auscultation in the anterior bashir. Cardiovascular: Patient is tachycardic. Abdomen: Soft, nontender, nondistended. Gastric pacemaker on the right side of the abdomen. Extremities: No cyanosis, clubbing, or edema. Pedal pulses 2+ present bilaterally. Neurologic: She is alert, oriented x3. LABORATORY DATA: WBCs 5.06, RBC 2.42, hemoglobin 7.0, hematocrit 21.8, platelet count 311,000. Sodium 138, potassium 3.9, chloride 109, carbon dioxide 18, anion gap 11, BUN 6, creatinine 1.2, glucose 195, calcium 7.1, phosphorus 4.4, magnesium 1.8, albumin 2.1. Abdominal CT and pelvis done on 07/08/2019 showed small hiatal hernia with possible distal esophagitis, cholecystectomy, likely fecal impaction. IMPRESSION: Dysphagia Intractable Nausea/Vomiting Esophageal Strictures History of PUD Gastroparesis Anemia Constipation Insulin Dependent type 2 diabetes Hemorrhoids PLAN: We are awaiting for availability of the bed at [facility] for surgical evaluation of esophagectomy due to the patient's lack of improvement with serial dilations and supportive care. The patient has denied any nausea, vomiting, but complains of abdominal tenderness. Her last EGD with dilation was done in June and it showed light strictures with inability to pass the pediatric endoscope. The patient is able to tolerate clear liquids. We will continue with the clear liquids, she is also receiving TPN and lipids for her nutrition. She is on Phenergan, Zofran and Reglan for nausea and vomiting. Centrum multivitamin tablets daily for her anemia. For her bowel regimen, she is on MiraLAX, and for hemorrhoids, she is getting her Anusol hydrocortisone cream twice a day. Her insulin is managed by Humalog on a sliding scale per PCP. We will continue to monitor patient's CBC, BMP and follow the plan of care PCP. We are still awaiting for the availability of bed at [facility]. This plan was discussed with Dr. Haq. Please call us for any further questions or concerns. Dictated by NELL Anthony for Yandel Haq MD cc: MD Jermain Villa MD I have seen and examined the patient myself and I agree with the above plan of care. I have discussed the above plan of care with the patient and all questions were answered. Please call us with any further questions. SYDNEE
[2019-07-15] MEDS: [UNRECOGNIZED DRUG - OTHER] IV SCH ×18 (15:03→15:23)
[2019-07-15] MEDS: CALCIUM GLUCONATE IV SCH ×18 (15:03→15:23)
[2019-07-15] MEDS: TPN ELECTROLYTES IV SCH ×18 (15:03→15:23)
[2019-07-15] MEDS: MAGNESIUM SULFATE IV SCH ×18 (15:03→15:23)
[2019-07-15] MEDS: LIPOSYN 20% 250 ML IV SCH (15:23)
[2019-07-15] MEDS ORDERED: NS 500 ML IV ONE ×2 (17:37→23:00)
[2019-07-15] MEDS ORDERED: BENADRYL PO ONE ×2 (17:37→22:15)
[2019-07-15] MEDS ORDERED: TYLENOL PO ONE ×2 (17:37→23:15)
--- NOTE | 2019-07-15 18:08 | PROGRESS NOTE ---
DATE: 07/15/2019 SUBJECTIVE: She says she is eating okay. She says she ate a bit of pureed diet today, which I do not understand because she is on clear liquids. I do not think she is supposed to be eating anything else. OBJECTIVE: 132/87, heart rate 121, respiratory rate 22, temperature 99.1 degrees.Cardiovascular: Regular rate and rhythm. Pulmonary: Bilateral breath sounds clear to auscultation. GI: Soft, nontender, nondistended. Bowel sounds are positive. LAB: White count 5, hemoglobin and hematocrit is 7 and 21, platelets of 311,000. BUN and creatinine are 6 and 1.2. PROBLEM LIST: 1. Intractable, nausea vomiting due to gastroparesis. We have tried to send this patient to [facility] but they been on diversion so we will continue to monitor. She is on total parenteral nutrition. At some point though I think will have to make a decision as a team that we cannot keep her in the hospital waiting indefinitely for a bed at [facility] considering reportedly sometimes they can be on diversion for weeks if not a month so or we may have to entertain looking at a closer thoracic surgeon but in the meantime we will continue that. 2. Anemia, likely multifactorial. Her hemoglobin and hematocrit has definitely progressed down she is down to 7, her crit is down to 21.8. I think she probably will benefit from transfusion but that is just my thinking. DISPOSITION: Pending her clinical status. cc: Jermain Gregory MD
[2019-07-16] MEDS: HUMALOG SUBQ SCH ×5 (00:52→21:21)
[2019-07-16] MEDS: REGLAN IV SCH ×4 (02:13→21:20)
[2019-07-16] MEDS: ZOFRAN IV PRN ×2 (03:44→08:17)
[2019-07-16] MEDS: MORPHINE IV PRN ×4 (03:44→19:03)
[2019-07-16 05:11] LABS: BASO# 0.01 X1000 (0.0-0.2); BASO% 0.1 % (0.0-0.8); EOS# 0.05 X1000 (0.0-0.7); EOS% 0.7 % (0.0-10.0); HEMATOCRIT 25.1 % (37.0-47.0); HEMOGLOBIN 8.1 g/dL (12.0-16.0); IMM GRAN# 0.02 X1000 (0.0-0.04); IMM GRAN% 0.3 % (0.0-0.5); LYMPH# 1.58 X1000 (1.2-3.4); LYMPH% 21.2 % (20.5-51.1); MCH 28.4 PG (27-31); MCHC 32.3 g/dL (33-37); MCV 88.1 FL (81-99); MONO# 0.79 X1000 (0.11-0.59); MONO% 10.6 % (1.7-9.3); MPV 10.5 FL (7.4-10.4); NEUT# 5.01 X1000 (1.4-6.5); NEUT% 67.1 % (42.2-75.2); PLT 256 X1000 (130-400); RBC 2.85 XMIL (4.2-5.4); RDW 19.7 % (11.5-14.5); WBC 7.46 X1000 (4.8-10.8)
[2019-07-16 06:36] LABS: CREATININE 1.2 mg/dL (0.5-0.9); PHOSPHORUS 3.6 mg/dL (2.7-4.5); POTASSIUM 4.1 mmol/L (3.5-5.1)
[2019-07-16 06:50] LABS: CALCIUM 6.9 mg/dL (8.8-10.2)
[2019-07-16] MEDS: MIRALAX PO SCH ×2 (08:23→21:23)
[2019-07-16] MEDS: SODIUM CHLORIDE 0.9% INJ SCH (08:24)
[2019-07-16] MEDS: PROTONIX IV SCH ×2 (08:24→21:20)
[2019-07-16] MEDS: CENTRUM TABLET PO SCH (08:24)
[2019-07-16] MEDS: CALTRATE 600 PO SCH ×2 (08:25→21:21)
[2019-07-16] MEDS: ANUSOL-HC CREAM PR SCH ×2 (08:38→21:23)
--- NOTE | 2019-07-16 13:30 | PROGRESS NOTE ---
DATE: 07/16/2019 SUBJECTIVE: Patient reports feeling better. Not vomiting. The patient continues to be on TPN. OBJECTIVE: Vital Signs: Temperature is 98.6, heart rate 122, respiratory rate 19, blood pressure 148/92, O2 saturation 100% on room air. General Examination: This is a chronically ill- appearing 43-year-old female lying in bed, in no acute distress. Cardiovascular: S1, S2 heard. No murmurs, gallops, or rubs. Regular rate and rhythm. Respiratory: Clear bilaterally to auscultation. No work of breathing or using accessory muscles. Abdomen: Soft, a little bit distended but nontender to palpation. Bowel sounds present. No organomegaly. Extremities: No clubbing, cyanosis, or edema. Peripheral pulses present in both legs. Neurological: Patient is alert and oriented x3. Moves 4 extremities. LABORATORY DATA: Reviewed. ASSESSMENT AND PLAN: 1. Intractable nausea and vomiting. 2. Diabetic gastroparesis status post gastric pacemaker. 3. Esophageal stricture. 4. Hypokalemia. 5. Chronic kidney disease stage 3. 6. Anemia of chronic disease. 7. At this point, we have been trying to send this patient to [facility]. Plan, according to GI Dr. Acosta, is to do an endoscopy tomorrow to see how she is doing. We know that she had esophageal strictures. We will see what this EGD shows. Will keep checking BMP daily. We will continue with TPN. Will continue with Phenergan and Reglan for her nausea and vomiting. Now, she is feeling fine. We will continue to monitor. cc: MD Jermain Avila MD
[2019-07-16] MEDS: PHENERGAN IV PRN ×2 (15:04→21:28)
[2019-07-16] MEDS ORDERED: [UNRECOGNIZED DRUG - OTHER] IV SCH ×9 (16:00)
[2019-07-16] MEDS ORDERED: MAGNESIUM SULFATE IV SCH ×9 (16:00)
[2019-07-16] MEDS ORDERED: LIPOSYN 20% 250 ML IV SCH (16:00)
[2019-07-16] MEDS ORDERED: CALCIUM GLUCONATE IV SCH ×9 (16:00)
[2019-07-16] MEDS ORDERED: TPN ELECTROLYTES IV SCH ×9 (16:00)
[2019-07-16] MEDS: MAGNESIUM SULFATE IV SCH ×9 (16:51)
[2019-07-16] MEDS: [UNRECOGNIZED DRUG - OTHER] IV SCH ×9 (16:51)
[2019-07-16] MEDS: LIPOSYN 20% 250 ML IV SCH (16:51)
[2019-07-16] MEDS: CALCIUM GLUCONATE IV SCH ×9 (16:51)
[2019-07-16] MEDS: TPN ELECTROLYTES IV SCH ×9 (16:51)
--- NOTE | 2019-07-16 22:17 | PROVIDER PROGRESS NOTE ---
Progress Note S: No acute overnight events. Patient reports tolerating puree diet yesterday. Currently, on clears. No N/V. Mild abdominal pain. +BMs. No melena or rectal bleeding. O: Last Vital Signs Temp 98.6 F 07/16/19 20:00 Pulse 122 H 07/16/19 20:00 Resp 18 07/16/19 20:00 BP 116/80 07/16/19 20:00 Pulse Ox 100 07/16/19 19:28 Height 5 ft 4 in Weight 134 lb 7 oz GEN: awake, alert, chronically ill-appearing HEENT: anicteric, MMM NECK: supple, NAD CV: tachycardic, regular, no murmurs ABD: soft NT/ND, NABS EXT: no cce NEURO: nonfocal LABS: 07/16/19 07/16/19 04:44 04:44 WBC 7.46 Hgb 8.1 L D Plt Count 256 Sodium 135 L Potassium 4.1 Chloride 109 H Carbon Dioxide 20 L BUN 9 Creatinine 1.2 H Glucose 219 H Calcium 6.9 L* Albumin 2.0 L PROBLEM LIST - Dysphagia - N/V - Esophageal stricture - History of PUD - Gastroparesis - Anemia - CATERINA - IDDM2 ASSESSMENT AND PLAN: Kaleigh Bobby is a 43-year-old woman with a complicated history of depression, poorly controlled insulin-dependent diabetes, gastroparesis status post gastric pacemaker, history of NSAID-induced PUD, esophageal stricture with severe esophagitis requiring serial dilations at [facility], and chronic anemia who re- presented with inability to tolerate p.o. with nausea, vomiting, epigastric pain and dysphagia. Labs notable for hypokalemia, CATERINA, anemia, and low bicarb; now resolved. On TPN. Continue IVFs, PPI IV BID, antiemetics. NPO after MN for EGD.
[2019-07-17] MEDS: MORPHINE IV PRN ×3 (00:03→11:21)
[2019-07-17] MEDS: HUMALOG SUBQ SCH ×2 (01:47→05:09)
[2019-07-17] MEDS: REGLAN IV SCH (02:37)
[2019-07-17 05:48] LABS: BASO# 0.01 X1000 (0.0-0.2); BASO% 0.1 % (0.0-0.8); EOS# 0.06 X1000 (0.0-0.7); EOS% 0.7 % (0.0-10.0); HEMATOCRIT 24.7 % (37.0-47.0); HEMOGLOBIN 7.9 g/dL (12.0-16.0); IMM GRAN# 0.05 X1000 (0.0-0.04); IMM GRAN% 0.6 % (0.0-0.5); LYMPH# 1.96 X1000 (1.2-3.4); LYMPH% 22.8 % (20.5-51.1); MCH 28.1 PG (27-31); MCV 87.9 FL (81-99); MONO# 0.75 X1000 (0.11-0.59); MONO% 8.7 % (1.7-9.3); MPV 11.3 FL (7.4-10.4); NEUT# 5.75 X1000 (1.4-6.5); NEUT% 67.1 % (42.2-75.2); PLT 251 X1000 (130-400); RBC 2.81 XMIL (4.2-5.4); RDW 20.1 % (11.5-14.5); WBC 8.58 X1000 (4.8-10.8)
[2019-07-17 06:14] LABS: ALBUMIN 2.1 g/dL (3.5-5.0); CALCIUM 7.1 mg/dL (8.8-10.2); CREATININE 1.3 mg/dL (0.5-0.9); PHOSPHORUS 3.6 mg/dL (2.7-4.5); POTASSIUM 4.8 mmol/L (3.5-5.1)
[2019-07-17 08:18] VITALS: BP 111/66
[2019-07-17] MEDS ORDERED: FENTANYL ONE (10:30)
[2019-07-17] MEDS ORDERED: DIPRIVAN 1% ONE (10:30)
[2019-07-17] MEDS ORDERED: XYLOCAINE-MPF 2% ONE (10:36)
--- NOTE | 2019-07-17 10:56 | ENDOSCOPY OPERATIVE NOTE ---
[facility] ENDOSCOPY OPERATIVE NOTE , PATIENT: Kaleigh Bobby ADMISSION DATE: 07/17/2019 MR#: [id number] [facility] 1975 [id number] EGD PROCEDURE REPORT PROCEDURE DATE: 07/17/2019 SURGEON: Charles Cano MD STATUS: inpatient BIG DATA ENGINEER: PREOPERATIVE DIAGNOSIS: The patient is a 43 yr old female here for an EGD due to dysphagia, pharynge al-esophageal and history of esophageal stricture requiring multiple dilations. PROCEDURE PERFORMED: EGD w/ balloon dilation of esophagus MEDICATIONS: Per Anesthesia TOPICAL ANESTHETIC: none CONSENT: The patient understands the risks and benefits of the procedure and understands that these r isks include, but are not limited to: sedation, allergic reaction, infection, perforation and/or bleeding. Alternative means of evaluation and treatment include, among others: physical exam, x-rays, and/or surgical intervention. The patient elects to proceed with this endoscopic procedure. HISORY AND PHYSICAL: 07/17/2019 DESCRIPTION OF PROCEDURE: During intra-op preparation period all mechanical and medical equipment was checked for proper function. Hand hygiene and appropriate measures for infection prevention was taken. After the risks, benefits and alternatives of the procedure were thoroughly explained, Informed consent was verified, confirmed and timeout was successfully executed by the treatment team. The patient was anesthetized with topical anesthesia and the IN28-m21 ([id number]) endoscope was introduced through the mouth and advanced to the second portion of the duoden um. Retroflexion was performed in the stomach and revealed a hiatal hernia. The gastroscope was then slowly withdrawn and removed. ESOPHAGUS: There was a long benign appearing and fibrotic stricture tapering toward the lower third o f the esophagus. There was LA grade C esophagitis found in the distal esophagus. Using a TTS-balloon the stricture wa s dilated up to12mm with small mucosal tear at 30cm located at the GEJ. STOMACH: Small amount of residual liquid food was found consistent with history of gastrparesis. Thi s was aspirated. DUODENUM: The duodenum was normal. SPECIMENS REMOVED: No ADVERSE EVENTS: There were no complications. POSTOPERATIVE DIAGNOSIS: 1. There was a long stricture in the lower third of the esophagus; Usin g a TTS-balloon the stricture was dilated up to 12mm 2. Foreign body was found RECOMMENDATIONS: Start puree diabetic diet, small frequent meals Transition IV PPI to PO BID Stop TPN Continue antiemetics prn Repeat outpatient EGD for dilation in 2 weeks Patient is okay to be discharged from GI perspective Follow-up in clinic in 1 week REPEAT EXAM: Return in 2 weeks for EGD with dilatation. Charles Caon MD eSigned: Charles Cano MD 07/17/2019 10:55 AM cc: PATIENT NAME: Kaleigh Bobby MR#: [id number]
--- NOTE | 2019-07-17 11:02 | PROGRESS NOTE ---
DATE: 07/17/2019 SUBJECTIVE: The patient reports not vomiting. According to nursing staff, it has been documented that she was found with chocolate bars and candy bars yesterday, even though she was encouraged not to eat anything outside of the hospital. OBJECTIVE: Vital Signs: Temperature 98.1 degrees, heart rate 111, respiratory rate 18, blood pressure 111/66, O2 saturation 100% on room air. General: This is a chronically ill-appearing, 43-year-old, female, lying in bed in no acute distress. Cardiovascular: S1, S2 heard. No murmurs, gallops, or rubs. Regular rate and rhythm. Respiratory: Clear bilaterally to auscultation. No work of breathing or using accessory muscles. Abdomen: Soft, nontender to palpation. Bowel sounds present. No organomegaly. Extremities: No clubbing, cyanosis, or edema. Peripheral pulses present in both legs. Neurological: The patient is alert and oriented x3. ASSESSMENT AND PLAN: 1. Intractable nausea and vomiting. The patient is not complaining of any nausea. According to mother, apparently the patient comes to the hospital to get Phenergan intravenously, and she does not complain of major nausea at home. She is able to eat apparently at home. Not vomiting too much. Here, she was found out 3 times at least during this hospitalization with outside hospital food, like burgers, fries, and last night, candy bars. The patient has been encouraged to not eat anything outside the hospital. 2. Diabetic gastroparesis, status post gastric pacemaker. Aware. 3. Esophageal stricture. The patient has several esophageal dilations in [facility]. Dr. Cano from Gastroenterology is going to scope her today. 4. Hypokalemia, resolved. 5. Chronic kidney disease stage 2. Aware. Creatinine is at baseline. Will continue to monitor. 6. Anemia of chronic disease. The patient has been provided 1 unit of blood, and hemoglobin is stable right now. 7. Disposition. Problem with this patient is she is] vomiting and that caused severe hypokalemia. Mother reported that she is able to bring the patient to [facility], but she refused to do that. At this point, more than a social problem is probably a personal decision not to be taken to [facility] to continue her with her treatment. At this point, will see what the endoscopy shows, and tomorrow if she is not hypokalemic and cleared by Gastroenterology, then will let her go tomorrow. cc: MD Jremain Avila MD MTDD
[2019-07-17] MEDS: PHENERGAN IV PRN (11:20)
[2019-07-17] MEDS ORDERED: PROTONIX PO SCH (11:30)
--- NOTE | 2019-07-18 10:12 | DISCHARGE SUMMARY ---
ADMISSION DATE: 07/08/2019 DISCHARGE DATE: 07/17/2019 DISCHARGE DIAGNOSES: 1. Severe hyperkalemia, resolved. 2. Intractable nausea and vomiting, resolved. 3. Chronic kidney disease stage 2. 4. History of dysphagia with esophageal stricture, status post dilatation. PROCEDURES: Endoscopy procedure performed today by Dr. Cano showed that there was a long stricture in the lower third of the esophagus that was dilated up to 12 mm. A foreign object was found. There was also a small amount of residual food found, consistent with history of gastroparesis. Abdomen CT showed a small hiatal hernia with possible distal esophagitis, cholecystectomy, and likely fecal impaction. CONSULTATIONS: Dr. Cano from GI. HOSPITAL COURSE: In brief, this is a 43-year-old female with past medical history of diabetic gastroparesis, status post gastric pacemaker placement, severe hyperkalemia, diabetes, and diabetic gastroparesis, who presented to the emergency department complaining of intractable nausea and vomiting. She was vomiting for a few days, and upon ER evaluation, she was found out to have a very low potassium of 1.8, so we replenished potassium accordingly. Apparently, the patient was still vomiting some. Then, we stabilized the patient and she was doing fine. Initially, the plan was to transfer to [facility], but we tried for a week, but the hospital was on diversion. Also, we found out during the last 3 to 4 days that the patient was having dietary indiscretions, eating candy bars, chocolates, and also some fries and burgers. That was not helping definitely her diabetic gastroparesis. Today, the decision was made to do endoscopy with dilation as we mentioned above. The patient tolerated the procedure very well, and now she is going to be discharged in stable condition, and she will be seen by Dr. Cano in the office in a week. DISCHARGE PHYSICAL EXAMINATION: Vital Signs: Temperature 98.1 degrees, heart rate 111, respiratory rate 18, blood pressure 111/66, O2 saturation 99% on room air. General: This is a chronically ill-appearing, 43-year-old, female, lying in bed in no acute distress. Cardiovascular: S1, S2 heard. No murmurs, gallops, or rubs. Regular rate and rhythm. Respiratory: Clear bilaterally to auscultation. No work of breathing or using any accessory muscles. Abdomen: Soft. Nontender to palpation. Bowel sounds present. No organomegaly. Extremities: No clubbing, cyanosis, or edema. Peripheral pulses present in both legs. Neurological: The patient is alert and oriented x3. Moves all 4 extremities. DISCHARGE DISPOSITION: Home to self-care. FOLLOWUP: Follow up with Dr. Cano in a week. LIST OF MEDICATIONS: We are not making any changes to her current medication. She will continue with Phenergan, Reglan, and Protonix. cc: Clyde Dominguez MD [facility]
== END 2019-07-17 13:10 | disposition home or self-care (01) | DRG 74 ==
LOC: P.ED 11:56 → SUATTDRO 22:11 → 2N 22:11 → 1N 07-10 14:19
PROVIDERS: ADMIT Internal Medicine; ATTEND Internal Medicine

== ENCOUNTER 2019-08-15 11:41 | Inpatient (IN) ==
[2019-08-15] MEDS ORDERED: NS 1,000 ML IV ONE (13:07)
[2019-08-15] MEDS ORDERED: MORPHINE IV ONE (13:07)
[2019-08-15] MEDS ORDERED: PHENERGAN IM ONE (13:07)
--- NOTE | 2019-08-15 13:28 | Diag Imaging Result Doc PS360 ---
EXAM: CHEST-2 VIEWS 08/15/2019 HISTORY: unable to swallow TECHNIQUE: AP and lateral chest COMMENT: There is a Port-A-Cath on the left with its tip in the right atrium. The heart size and pulmonary vascularity are within normal limits. The bibasilar opacities which were present on 04/26/2019 have apparently resolved. IMPRESSION: No evidence of acute disease. Electronically signed by Napoleon Bearden 08/15/2019 1:26 PM
--- NOTE | 2019-08-15 13:45 | PROVIDER DOCUMENTATION ---
HPI-Abdominal Pain/GI Problem - General Chief Complaint: Nausea/Vomiting Stated Complaint: N/V CANT SWALLOW STOMACH PAIN Time Seen by Provider: 08/15/19 12:42 Source: patient Allergies/Adverse Reactions: Patient Allergies Allergy/AdvReac Type Severity Reaction Status Date / Time No Known Allergies Allergy Verified 08/15/19 14:06 Home Medications: Home Medication List Medication Instructions Recorded Confirmed Last Taken Type Metoclopramide [Reglan] 10 mg PO AC + HS #120 tab 05/25/19 08/15/19 Unknown Rx Ondansetron Odt [Zofran Odt] 4 mg PO Q6H PRN PRN #25 tab 05/25/19 08/15/19 Unknown Rx Pantoprazole [Protonix] 1 tab PO DAILY 06/09/19 08/15/19 Unknown History - History of Present Illness-ABD Nature of Presenting Problems: Patient is a 43 yobf who complains of n/v and lower abdominal pain along with di fficulty swallowing x 2 days. Hx of dysphagia and gastroparesis. She has had these s/s in the past. Also has a gastric pacemaker. Denies fever or any other complaints. Review of Systems - Adult - REVIEW OF SYSTEMS - ADULT Constitutional: reports: no symptoms reported. denies: chills, fever Eyes: reports: no symptoms reported Ears, Nose, Mouth & Throat: reports: no symptoms reported Cardiovascular: reports: no symptoms reported Respiratory: reports: no symptoms reported Gastrointestinal: reports: see HPI Genitourinary: reports: no symptoms reported Musculoskeletal: reports: no symptoms reported Integumentary: reports: no symptoms reported Neurological: reports: no symptoms reported Psychiatric: reports: no symptoms reported Endocrine: reports: no symptoms reported Hematologic/Lymphatic: reports: no symptoms reported Allergic/Immunologic: reports: no symptoms reported All Other Systems: Reviewed and Negative Past History - Adult - PAST MEDICAL HISTORY-ADULT Review of Records: reports: Old Records Reviewed, Nursing Assessment Review, Medications Reviewed, Social history reviewed & non-contributory. Major Childhood Illnesses: reports: denies history Cardiovascular: reports: HTN, hyperlipidemia Respiratory: reports: denies history Gastrointestinal: reports: GERD (with esophagitis and stenosis), GI bleed, ulcer , other (diabetic gastroparesis, erosive gastritis and esophagitis; gastric pacemaker) Obstetrical/Gynecological: reports: denies history Genitourinary: reports: kidney disease, other (ammenorrhea for 1 year) Musculoskeletal: reports: denies history Neurological: reports: other (DM neuropathy) Psychiatric: reports: anxiety, depression Endocrine/Immune: reports: anemia, Diabetes Other Conditions: reports: denies history Additional History: frequent ER visits - PRIOR SURGERIES/PROCEDURES Surgical/Procedure History: reports: cholecystectomy, indwelling device (Portacath), other (gastric stimulator) - IMMUNIZATION STATUS Childhood Immunizations: See Nurse Assessment Flu Vaccine: See Nurse Assessment - FAMILY HISTORY Family History: reviewed, not pertinent - SOCIAL HISTORY Smoking: non-smoker Physical Exam-General - PHYSICAL EXAM-ADULT Initial Vital Signs Reviewed: Yes - CONSTITUTIONAL General Appearance: alert, moderate distress. negative: lethargic, slow to respond - EYES Eyes: PERRL/EOMI - HEAD, EARS, NOSE, MOUTH & THROAT HENMT: normocephalic/atraumatic - NECK Neck: full range of motion, supple, normal inspection - RESPIRATORY Respiratory: chest non-tender, lungs clear, normal breath sounds, no pleuratic chest pain, no respiratory distress, no accessory muscle use - CARDIOVASCULAR Cardiovascular: regular rate, rhythm, no gallop, no murmur, tachycardia - GASTROINTESTINAL (ABDOMEN) Abdominal Exam: soft, abnormal bowel sounds (hypoactive), tenderness (diffusely) . negative: distended, guarding, rigid, rebound - MUSCULOSKELETAL Back Exam: normal inspection, no CVA tenderness Extremity: normal range of motion, non-tender, normal inspection - SKIN Integumentary: normal color, warm/dry. negative: cyanosis, diaphoresis, jaundice, mottled, pallor - NEUROLOGIC Neurologic: grossly normal, no motor/sensory deficits - PSYCHIATRIC Psych/Mental Status: normal mood/affect, normal thought content, normal thought process, other (restless) Progress - PLAN OF CARE/RESULTS Progress/Plan/Lab Results: Vital Signs - 8 hr 08/15/19 11:49 Temperature 97.4 F L Pulse Rate 117 H Respiratory Rate 20 Blood Pressure 126/91 O2 Sat by Pulse Oximetry 98 Orders Category Date Time Status FSBS/Accucheck Result NOW Care 08/15/19 13:07 Active CHEST-2 VIEWS [RAD] Stat Exams 08/15/19 13:08 Completed AMYLASE [CHEM] Stat Lab 08/15/19 13:07 Uncollected CBC WITH DIFF [HEME] Stat Lab 08/15/19 13:06 Ordered COMPREHENSIVE METABOLIC PANEL [CHEM] Stat Lab 08/15/19 13:07 Uncollected LIPASE [CHEM] Stat Lab 08/15/19 13:07 Uncollected UA NIMS W/REFLEX CULT [URINALYSIS] Stat Lab 08/15/19 13:07 Uncollected 0.9% Sodium Chloride Inj [Ns] 1,000 ml Med 08/15/19 13:07 Active IV 999 mls/hr Morphine Med 08/15/19 13:07 Discontinued 4 mg IV NOW ONE Promethazine [Phenergan] Med 08/15/19 13:07 Discontinued 25 mg IM NOW ONE Result Diagrams: 08/15/19 14:00 08/15/19 14:00 - XRAY 1 XRAY Study: Chest ([facility] - [address] [facility], [address], [place] [address] [facility] - [address] [place] [address] Department of Imaging Patient: VILMA NARVAEZ Date: 08/15/19#: [id number] : 1975ADM Status: PRE ERAcct#: [id number] Age/Sex: 43/FRoom/Bed: Loc: ED Ordering Physician: Emi Warren Family Physician: None,PCP Reason for Procedure: unable to swallow Signed EXAM: CHEST-2 VIEWS 08/15/2019 HISTORY: unable to swallow TECHNIQUE: AP and lateral chest COMMENT: There is a Port-A-Cath on the left with its tip in the right atrium. The heart size and pulmonary vascularity are within normal limits. The bibasilar opacities which were present on 04/26/2019 have apparently resolved. IMPRESSION: No evidence of acute disease. Electronically signed by Napoleon Bearden 08/15/2019 1:26 PM 08/15/19 1326 Interpreting Physician: Napoleon Bearden MD Dictated Date/Time: 08/15/19 1326 cc: Emi Warren; None,PCP) - CT/MRI 1 CT Study: Abdomen, Pelvis ([facility] - [address], [address], [place] [address] [facility] - [address] [place] [address] Department of Imaging Patient: VILMA NARVAEZ Date: 08/15/19MR#: [id number] : 1975ADM Status: REG [facility]#: [id number] Age/Sex: 43/FRoom/Bed: Loc: ED Ordering Physician: Emi Warren Family Physician: None,PCP Reason for Procedure: lower abdominal pain/tenderness Signed CT ABDOMEN/PELVIS W/O CONTRAST - 08/15/2019 INDICATION: lower abdominal pain/tenderness COMPARISON: 07/08/2019 FINDINGS: The lung bases are clear and the heart size is normal. There are cholecystectomy clips. No radiodense renal stones. No hydronephrosis or hydroureter. There is an implanted device in the anterior right abdominal wall. There is mild constipation. No bowel obstruction or inflammation. No free air or free fluid. There is an IUD in the uterus. Urinary bladder and rectum are normal. Bones are intact. IMPRESSION: Mild constipation but no acute disease. This exam was performed using automated exposure control, adjustment of mA or kV according to patient size, and/or use of iterative reconstruction technique Electronically signed by Chapito Duran 08/15/2019 3:32 PM 08/15/19 1532 Interpreting Physician: Chapito Duran MD Dictated Date/Time: 08/15/19 1523 cc: Emi Warren; None,PCP) - CONSULTS/PCP/HOSPITALIST Notification #1 *Consult/PCP/Hospitalist*: ZENA Conklin Time Discussed: 15:18 Reason/Comments: admit- n/v, abd pain, dysphagia, CATERINA, hypokalemia Consult Disposition: Admit Departure - Departure Date of Disposition Decision: 08/15/19 Time of Disposition Decision: 15:16 DIAGNOSIS: Gastroparesis diabeticorum, Hypokalemia, CATERINA (acute kidney injury) Abdominal pain Qualifiers: Abdominal location: unspecified location Qualified Code(s): R10.9 - Unspecified abdominal pain Vomiting Qualifiers: Vomiting type: unspecified Vomiting Intractability: unspecified Nausea presence: with nausea Qualified Code(s): R11.2 - Nausea with vomiting, unspecified Disposition: ADMITTED INPATIENT 09 Certified Medical Emergency: Emergent Condition: Stable Referrals and Follow-Ups: None,PCP [Primary Care Provider] - - Critical Care Note This patient required my direct & personal management of CC.: No Attestation - Physician/ GAUDENCIO Attestation Patient care was provided by Advanced Practice Provider:: Yes Advanced Practice Provider:: Emi Warren Advanced Practice Provider documentation review:: The Mid-level provider documentation, treatment plan and medical decision making was reviewed by the physician who agrees with all treatment and medical decision making by the P. The physician spent face to face time with patient:: No Advanced Practice Provider documentation review:: Supervising physician onsite and consulted in the evaluation and care of this patient. The physician did not have a face to face encounter with the patient.
[2019-08-15 14:15] LABS: BASO# 0.02 X1000 (0.0-0.2); BASO% 0.3 % (0.0-0.8); EOS# 0.02 X1000 (0.0-0.7); EOS% 0.3 % (0.0-10.0); HEMATOCRIT 35.7 % (37.0-47.0); HEMOGLOBIN 12.5 g/dL (12.0-16.0); IMM GRAN# 0.02 X1000 (0.0-0.04); IMM GRAN% 0.3 % (0.0-0.5); LYMPH% 24.2 % (20.5-51.1); MCH 29.2 PG (27-31); MCV 83.4 FL (81-99); MONO# 0.38 X1000 (0.11-0.59); MONO% 5.4 % (1.7-9.3); MPV 12.9 FL (7.4-10.4); NEUT# 4.88 X1000 (1.4-6.5); NEUT% 69.5 % (42.2-75.2); PLT 288 X1000 (130-400); RBC 4.28 XMIL (4.2-5.4); RDW 15.8 % (11.5-14.5); WBC 7.02 X1000 (4.8-10.8)
[2019-08-15 14:23] LABS: URINE SOURCE CATH
[2019-08-15 14:31] LABS: BILIRUBIN URINE SMALL (NEGATIVE); BLOOD URINE TRACE (NEGATIVE); COLOR YELLOW; GLUCOSE URINE NEGATIVE (NEGATIVE); KETONE URINE TRACE mg/dL (NEGATIVE); LEUKOCYTES URINE NEGATIVE (NEGATIVE); NITRITE URINE NEGATIVE (NEGATIVE); PROTEIN URINE 100 mg/dL (NEGATIVE); SP GRAVITY URINE 1.017; TURBIDITY URINE HAZY (CLEAR); UROBILINOGEN URINE 3 mg/dL (NORMAL)
[2019-08-15 14:33] LABS: UR EPITHELIAL CELLS <10 /HPF (<10); URINE BACTERIA 2+ /HPF; URINE RBC <10 /HPF (<10); URINE WBC <10 /HPF (<10)
[2019-08-15 14:48] LABS: ALB/GLOB RATIO 1.3; ALBUMIN 3.5 g/dL (3.5-5.0); CREATININE 2.3 mg/dL (0.5-0.9); TOTAL BILIRUBIN 0.61 mg/dL (0.20-1.00); TOTAL PROTEIN 6.3 g/dL (6.3-8.3)
[2019-08-15 14:49] LABS: POTASSIUM 2.1 mmol/L (3.5-5.1)
[2019-08-15] MEDS ORDERED: POTASSIUM CHLORIDE 20 MEQ/SWI 20 MEQ/100 ML IVPB IV ONE (14:55)
[2019-08-15] MEDS ORDERED: TYLENOL PO PRN (15:25)
--- NOTE | 2019-08-15 15:35 | Diag Imaging Result Doc PS360 ---
CT ABDOMEN/PELVIS W/O CONTRAST - 08/15/2019 INDICATION: lower abdominal pain/tenderness COMPARISON: 07/08/2019 FINDINGS: The lung bases are clear and the heart size is normal. There are cholecystectomy clips. No radiodense renal stones. No hydronephrosis or hydroureter. There is an implanted device in the anterior right abdominal wall. There is mild constipation. No bowel obstruction or inflammation. No free air or free fluid. There is an IUD in the uterus. Urinary bladder and rectum are normal. Bones are intact. IMPRESSION: Mild constipation but no acute disease. This exam was performed using automated exposure control, adjustment of mA or kV according to patient size, and/or use of iterative reconstruction technique Electronically signed by Chapito Duran 08/15/2019 3:32 PM
[2019-08-15] MEDS ORDERED: REGLAN PO SCH (16:00)
[2019-08-15] MEDS: NS 1,000 ML IV SCH (17:25)
[2019-08-15] MEDS: PROTONIX IV SCH (17:27)
--- NOTE | 2019-08-15 20:13 | EKG Report ---
Test Performed on : 08/15/2019 6:17:26 PM Test Reason : hypokalemia Blood Pressure : / mmHG Vent. Rate : 107 BPM Atrial Rate : 107 BPM P-R Int : 128 ms QRS Dur : 076 ms QT Int : 486 ms P-R-T Axes : 000 028 053 degrees QTc Int : 648 ms Critical Test Result: Long QTc Sinus tachycardia. Prolonged QT Abnormal ECG When compared with ECG of 09-JUL-2019 06:59, Nonspecific T wave abnormality no longer evident in Inferior leads Nonspecific T wave abnormality, improved in Anterolateral leads QT has lengthened Confirmed by Naun BELL, Saji ([id number]) on 08/16/2019 11:39:40 AM
[2019-08-15] MEDS ORDERED: KLOR-CON PO ONE (22:37)
[2019-08-15] MEDS: PHENERGAN IV PRN (23:05)
[2019-08-15] MEDS: POTASSIUM CHLORIDE 20 MEQ/SWI 20 MEQ/100 ML IVPB IV SCH (23:33)
[2019-08-16] MEDS: NS 1,000 ML IV SCH ×3 (01:42→19:49)
[2019-08-16] MEDS: POTASSIUM CHLORIDE 20 MEQ/SWI 20 MEQ/100 ML IVPB IV SCH (02:05)
--- NOTE | 2019-08-16 03:38 | HISTORY AND PHYSICAL ---
PRIMARY CARE PHYSICIAN: Charan Jimenes MD. CHIEF COMPLAINT: Nausea, vomiting, abdominal pain and constipation. HISTORY OF PRESENT ILLNESS: Ms Kaleigh Bobby is a 43-year-old female who comes in for frequent admissions secondary to gastroparesis, intractable nausea, vomiting and abdominal pain. She has had an abdominal CT performed which shows a little constipation, but she states for a week she has not had a bowel movement. She has been having difficulties with swallowing. She has bilateral lower quadrant abdominal discomfort and for 2 days she has been having added nausea and vomiting. She has had very poor p.o. intake and is very malnourished. Secondary to the vomiting, she has hypokalemia and mild acute kidney injury with dehydration, so we will go ahead and give her some IV fluids, some potassium supplementation, antiemetics and consult Gastroenterology because of the dysphagia that she is having as well. Otherwise, vital signs are stable. PAST MEDICAL HISTORY: 1. Dysphagia with esophageal stricture and dilatations. 2. Intractable nausea and vomiting that tends to be chronic from gastroparesis. 3. Gastroparesis. 4. Anemia. 5. CKD stage 2. 6. Diabetes mellitus type 2. 7. Medical noncompliance. 8. Severe protein calorie malnutrition. SURGICAL HISTORY: 1. Cholecystectomy. 2. Gastric pacemaker. 3. Port-A-Cath placement. 4. Esophageal dilatations. 5. G-tube placement in 2019. FAMILY HISTORY: Positive for diabetes. SOCIAL HISTORY: Denies tobacco, alcohol or illicit drug use. She used to use marijuana. ALLERGIES: No known drug allergies. HOME MEDICATIONS: 1. Ambien 10 mg p.o. nightly. 2. Carafate 1 g p.o. daily. 3. Protonix 40 mg p.o. daily. 4. Reglan with meals and at night. 5. Zofran 4 mg p.o. every 6 hours p.r.n. REVIEW OF SYSTEMS: Fourteen point review of systems are complete and all were negative except for those mentioned above in HPI. PHYSICAL EXAM: VITAL SIGNS: Temperature 97.5 degrees, heart rate 86, respiratory rate 19, blood pressure 106/79, O2 saturation 100% on room air. GENERAL: Ms. Kaleigh Bobby is a 43-year-old female. She is in no acute distress. She is able answer questions appropriately. HEENT: Atraumatic, normocephalic. Pupils equal, round, reactive to light. Extraocular movements intact. Mucous membranes are dry. NECK: Trachea midline. CARDIOVASCULAR: S1, S2. Regular rate and rhythm. No rubs, gallops, murmurs. No lower extremity edema. +2 dorsalis and radial pulses. Negative JVD or carotid bruits. PULMONARY: Clear to auscultation bilateral breath sounds. No accessory muscle use or work of breathing noted. GASTROINTESTINAL: Soft, tender in the bilateral abdominal quadrants and hypoactive bowel sounds. EXTREMITIES: Moves all extremities equally. Full range of motion. NEUROLOGIC: A and O x3. Follows commands. Sensory is intact. SKIN: Warm, dry, intact. LABORATORY DATA: White blood cells 7000, hemoglobin 12, hematocrit 35, platelet count 288,000. Sodium 146, potassium 2.1, BUN 7, creatinine is 2.3. Glucose 104, calcium 9.0, magnesium 2.4, bilirubin 0.61, AST 16, ALT 8. Urinalysis: 100 protein, trace ketones, trace blood, small bilirubin, 3 urobilinogen, 2+ bacteria. IMAGING: Chest x-ray no acute disease. Abdominal and pelvic CT mild constipation, no acute disease. ASSESSMENT AND PLAN: 1. Gastroparesis with intractable nausea, vomiting, and abdominal pain. Antiemetics added and IV fluids started. 2. Dysphagia with history of serial dilatations, most recently being in early July/late June. Dr. Cano has been consulted. 3. Constipation. She is on Reglan. May have to add something to help her have a bowel movement. 4. Chronic kidney disease stage 2 with acute kidney injury. Intravenous fluids started. 5. Diabetes mellitus type 2. We will do pattern blood glucoses and sliding scale insulin. 6. Severe protein calorie malnutrition. Nutritional consult ordered. 7. Deep venous thrombosis prophylaxis. Sequential compression devises. Dictated by NELL Maya for Jermain Gregory MD cc: NELL Maya MD
--- NOTE | 2019-08-16 03:39 | HISTORY AND PHYSICAL ---
ADDENDUM: Also, she has hypokalemia, so we will give her IV supplementation of potassium and recheck a potassium a bit later today. There is no EKG changes. Dictated by NELL Maya for Jermain Gregory MD cc: NELL Maya MD
[2019-08-16] MEDS: PROTONIX IV SCH ×2 (04:34→15:50)
--- NOTE | 2019-08-16 04:36 | HISTORY AND PHYSICAL ---
ADDENDUM: HISTORY OF PRESENT ILLNESS: This is a 43-year-old female with gastroparesis who presents with intractable nausea, vomiting, and acute kidney injury. She will be admitted for IV fluids, antiemetics, and fluids. We will continue to follow closely. She has acute renal failure. We will check urine electrolytes and monitor closely. cc: Jermain Gregory MD
[2019-08-16] MEDS: PHENERGAN IV PRN ×3 (06:09→20:05)
[2019-08-16] MEDS ORDERED: REGLAN PO SCH (06:30)
[2019-08-16 09:47] LABS: BASO# 0.03 X1000 (0.0-0.2); BASO% 0.3 % (0.0-0.8); EOS# 0.09 X1000 (0.0-0.7); EOS% 0.9 % (0.0-10.0); HEMATOCRIT 37.2 % (37.0-47.0); HEMOGLOBIN 12.6 g/dL (12.0-16.0); LYMPH# 2.54 X1000 (1.2-3.4); LYMPH% 26.2 % (20.5-51.1); MCH 28.9 PG (27-31); MCHC 33.9 g/dL (33-37); MCV 85.3 FL (81-99); MONO# 0.67 X1000 (0.11-0.59); MONO% 6.9 % (1.7-9.3); MPV 12.2 FL (7.4-10.4); NEUT# 6.38 X1000 (1.4-6.5); NEUT% 65.7 % (42.2-75.2); PLT 235 X1000 (130-400); RBC 4.36 XMIL (4.2-5.4); RDW 16.3 % (11.5-14.5); WBC 9.71 X1000 (4.8-10.8)
[2019-08-16 10:41] LABS: ALBUMIN 3.1 g/dL (3.5-5.0); CALCIUM 8.4 mg/dL (8.8-10.2); POTASSIUM 2.7 mmol/L (3.5-5.1); TOTAL BILIRUBIN 0.76 mg/dL (0.20-1.00); TOTAL PROTEIN 6.2 g/dL (6.3-8.3)
[2019-08-16] MEDS ORDERED: POTASSIUM CHLORIDE 40 MEQ/SWI 40 MEQ/100 ML IVPB IV ONE (12:44)
[2019-08-16] MEDS ORDERED: KLOR-CON PO ONE (12:44)
--- NOTE | 2019-08-16 15:03 | GASTROENTEROLOGY CONSULTATION ---
DATE: 08/16/2019 REASON FOR CONSULT: Nausea, vomiting and constipation. HISTORY OF PRESENT ILLNESS: Ms. Bobby is a 43-year-old female who is frequently seen in the hospital for nausea, vomiting, and dysphagia. The patient has a history of esophageal strictures, gastroparesis, status post gastric pacemaker, GERD, prior PEG placement, and esophagitis. The patient was admitted to the hospital on 05/30/2019 for cyclic vomiting and hypokalemia. An endoscopy was done on 06/12/2019 and the findings was stricture with an inner diameter of 5 mm. TTS balloon was used and the stricture was dilated. The patient was again seen by GI on 07/09/2019 for intractable nausea and vomiting. The plan at that time was to transfer the patient to [facility] for further evaluation and treatment. An endoscopy procedure was done on 07/17/2019, there was a long stricture in the lower third of the esophagus. A TTS balloon was used to dilate the stricture up to 12mm. The recommendation was for a repeat EGD in 2 weeks. The patient is now back in the hospital yesterday with nausea, vomiting, and constipation. A chest x-ray on 08/15/2019 showed no evidence of acute disease. Abdomen and pelvis CT showed mild constipation, but no acute disease. PAST MEDICAL HISTORY: Gastroparesis S/p gastric pacemaker Diabetes type II Insomnia CKD Hypertension Esophageal stricture Nausea/Vomiting Dysphagia secondary to stricture Non compliance with medications. PAST SURGICAL HISTORY: Cholecystectomy Gastric pacemaker Port-a-cath placement Esophageal dilation G-tube placement in 2019 SOCIAL HISTORY: She is a former smoker. She has denied alcohol, but she does smoke marijuana. ALLERGIES: No known drug allergies. MEDICATIONS: The patient's home medications are 1. Ambien 10 mg at bedtime. 2. Carafate 1 g daily. 3. Protonix 40 mg p.o. daily. 4. Reglan with meals. 5. Zofran 4 mg every 6 hours as needed. FAMILY HISTORY: No significant GI malignancies. Positive for diabetes REVIEW OF SYSTEMS: As per HPI. Otherwise, 12 point review of system is negative. PHYSICAL EXAMINATION: Vital Signs: Temperature 98.2 degrees, pulse 96, respirations 18, blood pressure 109/88, oxygen saturation 100% on room air. General: She is alert and oriented x3. Answering questions appropriately, in no acute distress. HEENT: Pale conjunctivae. No icterus. PERRL. Neck: Supple. Lungs: Clear to auscultation in the anterior bashir. Cardiovascular: Patient is tachycardic. Abdomen: Soft, nontender, nondistended. Active bowel sounds heard in all 4 quadrants. Gastric pacemaker on the right side of the abdomen. Extremities: No clubbing, no cyanosis, no edema. Pedal pulses 2+ present bilaterally. Neurological: Alert and oriented x3. Nonfocal. Cranial nerves 2-12 grossly intact. LABORATORY DATA: WBC 9.71, RBC 4.36, hemoglobin 12.6, hematocrit 37.2, platelet count is 235,000. Sodium 139, potassium 2.7, chloride 108, carbon dioxide 11, anion gap 20, BUN 5, creatinine 2.0, glucose 57, calcium 8.4, total bilirubin is 0.76, AST 32, ALT 11, alkaline phosphatase 85. Urinalysis showed protein of 100, trace of blood, trace of ketones and small amount of bilirubin. Gastric occult blood was positive. Stool occult blood was negative. Toxicology report showed presumptive opioids and presumptive positive cannabinoids, and small amount of acetone level. The patient's [place] reflex antibody is negative. HIV antibodies were nonreactive. Abdomen and pelvis CT showed mild constipation but no acute disease. Chest x- ray showed no evidence of acute disease. IMPRESSION AND PLAN: 1. Nausea and vomiting. 2. Dysphagia. 3. Esophageal stricture. 4. Anemia. 5. Gastroparesis. 6. Insulin-dependent diabetes. 7. Acute kidney injury. 8. Hypertension 9. Constipation 10. Malnutrition 11. Hypokalemia PLAN: Ms. Bobby is 43 year old female with a history of gastroparesis, GI has been consulted for nausea, vomiting and constipation. The patient is currently on antiemetics, Phenergan and Zofran for her nausea and vomiting. She is receiving GI prophylaxis, Protonix 40 mg IV twice a day. The patient is also on Reglan 10 mg twice a day. We will monitor for the side effects of tardive dyskinesia. The patient's potassium today was 2.7. She received a one time dose of p.o. potassium and IV potassium per PCP. She is on Clinimix 70 ml/hr for nutrition per PCP. We will continue to monitor the patient and follow the plan of care per PCP. If her nausea and vomiting worsens, we will plan to do an EGD. This plan has been discussed with Dr. Cano. Thank you for your consult. Please call us for any further questions or concerns. Dictated by NELL Anthony for Charles Cano MD Physician Attestation I have seen and examined the patient. I have discussed and reviewed the note by Emily CAMEJO and agree with findings and plan as documented. In brief, Ms. Kaleigh Bobby is a 43 year non-compliant woman with h/o IDDM2, depression, gastroparesis s/p gastric pacemaker, chronic CHIQUIS, h/o NSAID-induced PUD and esophageal stricture requiring PPI BID and multiple EGD for esophageal dilation who presents with recurrent N/V, dysphagia, and abdominal pain similar to prior episodes. She reports compliance with strict liquid diet only and with medications, but has been witnessed eating solids foods in the past. She was scheduled for outpatient EGD on 08/14 with me, but she rescheduled appointment for 08/20. Labs show hypokalemia and CATERINA. Last EGD on 07/17 showed LA grade C esophagitis and stricture that was dilated up to 12mm. Recommend repeat EGD for dilation early next week, preferably Monday with myself. Will follow with you. Please call with questions. MTDD
[2019-08-16] MEDS ORDERED: NUBAIN IV PRN (15:53)
[2019-08-16] MEDS: REGLAN IV SCH (16:11)
[2019-08-16] MEDS: NUBAIN IV PRN ×2 (16:30→20:58)
[2019-08-16 16:34] LABS: ALLEN TEST YES; BE -12.5 mmoll (-3.0-3.0); BLOOD TYPE ARTERIAL; HCO3-(ACT) 15.2 mmoll (20.0-26.0); METHB 0.5 % (0.0-1.5); MODALITY ROOM AIR; O2(CT) 11.4 mL/dL (15.0-23.0); O2HB 97.6 % (95.0-99.0); PCO2(98.6) 22 mmHg (35-45); PO2(98.6) 132 mmHg (60-100); SAMPLE BLOOD; SAO2 99.4 % (95.0-100.0); THB 8.1 g/dL (11.5-17.4); pH(98.6) 7.34 (7.35-7.45)
[2019-08-16] MEDS: CLINIMIX E 4.25%-5% SOLUTION 1,000 ML IV SCH (16:35)
[2019-08-16] MEDS: SODIUM CHLORIDE 0.9% INJ PRN (20:05)
--- NOTE | 2019-08-16 22:53 | PROGRESS NOTE ---
DATE: 08/16/2019 SUBJECTIVE: The patient has no major complaints. OBJECTIVE: Blood pressure is 107/77, heart rate of 93, respiratory rate 18, temperature 98.3 degrees, 100% on room air. Cardiovascular: Regular rate and rhythm. Pulmonary: Bilateral breath sounds clear to auscultation. GI: Soft, nontender, nondistended. Bowel sounds positive. LABORATORY DATA: White count 9, hemoglobin and hematocrit 12 and 37, platelets 235,000, potassium 2.7, BUN and creatinine of 5 and 2 with a glucose of 57 and an AST of 32. PROBLEM LIST: 1. Intractable nausea and vomiting due to gastroparesis with severe history of dysphagia and esophageal stricture. We will continue intravenous Reglan, IV fluids and follow. 2. Hypokalemia. We will continue to supplement, being careful in the setting of her renal insufficiency. 3. Chronic renal failure. She is stage IIIB, so we will continue to follow. 4. Diabetes. She seems to be well-controlled on nothing, probably because she is just not absorbing very well. If anything, we are going to have to put her on some supplementation. In fact, I will probably start some Clinimix and see how she does with that. cc: Jermain Gregory MD
[2019-08-17] MEDS: REGLAN IV SCH ×3 (00:29→15:36)
[2019-08-17] MEDS: SODIUM CHLORIDE 0.9% INJ PRN ×2 (02:25→20:19)
[2019-08-17] MEDS: PHENERGAN IV PRN ×3 (02:25→20:19)
[2019-08-17] MEDS: NUBAIN IV PRN (02:25)
[2019-08-17] MEDS: PROTONIX IV SCH ×2 (03:49→15:36)
[2019-08-17] MEDS: SODIUM CHLORIDE 0.9% INJ SCH ×2 (03:49→15:36)
[2019-08-17] MEDS: CLINIMIX E 4.25%-5% SOLUTION 1,000 ML IV SCH ×2 (05:54→18:26)
[2019-08-17 07:37] LABS: BASO# 0.02 X1000 (0.0-0.2); BASO% 0.3 % (0.0-0.8); EOS# 0.06 X1000 (0.0-0.7); HEMATOCRIT 29.6 % (37.0-47.0); HEMOGLOBIN 9.8 g/dL (12.0-16.0); LYMPH# 1.77 X1000 (1.2-3.4); LYMPH% 30.3 % (20.5-51.1); MCH 28.7 PG (27-31); MCHC 33.1 g/dL (33-37); MCV 86.5 FL (81-99); MONO# 0.44 X1000 (0.11-0.59); MONO% 7.5 % (1.7-9.3); MPV 12.9 FL (7.4-10.4); NEUT# 3.56 X1000 (1.4-6.5); NEUT% 60.9 % (42.2-75.2); PLT 208 X1000 (130-400); RBC 3.42 XMIL (4.2-5.4); RDW 16.4 % (11.5-14.5); WBC 5.85 X1000 (4.8-10.8)
[2019-08-17 07:51] LABS: ALBUMIN 2.6 g/dL (3.5-5.0); CALCIUM 8.2 mg/dL (8.8-10.2); CREATININE 1.7 mg/dL (0.5-0.9); TOTAL BILIRUBIN 0.49 mg/dL (0.20-1.00); TOTAL PROTEIN 5.2 g/dL (6.3-8.3)
[2019-08-17] MEDS: POTASSIUM CHLORIDE 20 MEQ/SWI 20 MEQ/100 ML IVPB IV SCH ×2 (15:30→18:27)
--- NOTE | 2019-08-17 17:58 | EKG Report ---
Test Performed on : 08/17/2019 12:26:29 PM Test Reason : Follow up QTc Blood Pressure : / mmHG Vent. Rate : 119 BPM Atrial Rate : 119 BPM P-R Int : 156 ms QRS Dur : 084 ms QT Int : 338 ms P-R-T Axes : 051 060 077 degrees QTc Int : [address] & T wave abnormality, consider anterior ischemia Abnormal ECG When compared with ECG of 15-AUG-2019 18:17, ST now depressed in Lateral leads Nonspecific T wave abnormality now evident in Inferior leads T wave inversion now evident in Anterior leads Confirmed by Nuan BELL, Saji ([id number]) on 08/19/2019 8:27:24 AM
[2019-08-17 18:00] LABS: UR CREAT RANDOM 116.4 mg/dL (11-20); UR PROT RANDOM 52.1 mg/dL
[2019-08-17] MEDS: ZOFRAN IV PRN (18:25)
[2019-08-17] MEDS ORDERED: LEVSIN-SL SL PRN (19:43)
[2019-08-18] MEDS: REGLAN IV SCH ×3 (01:07→16:10)
--- NOTE | 2019-08-18 03:31 | PROGRESS NOTE ---
DATE: 08/17/2019 INTERVAL HISTORY: Ms. Bobby continues to have hypokalemia, nausea and vomiting. She denies any new complaints. We discussed about possible endoscopy on Monday. I answered all of her questions. OBJECTIVE: Vital signs: Temperature 98.7 degrees, pulse 105, respiratory 21, blood pressure 104/73, saturating 100% room air. General: Not in acute distress. HEENT: Oral cavity is moist. Lungs: Air entry bilaterally equal. No wheeze, rhonchi, or crackles. She has a left-sided chest port. Cardiovascular: S1, S2 normal. No murmur or gallop. Abdomen: Soft, nontender. Extremities: No lower extremity edema. Neurologic: She appears cachectic. She is alert oriented x3. LABS: Suggestive of drop in hemoglobin, likely due to intravenous fluid resuscitation, hypokalemia, hyperchloremia. She also has improving creatinine. Her hypoglycemia has resolved. No positive microbiological data. No new imaging. ASSESSMENT AND PLAN: 1. Intractable nausea, vomiting due to acute on chronic dysphagia due to multiple esophageal strictures requiring multiple dilatations in the past with history of gastroparesis requiring gastric pacemaker. Continue liquid diet, intravenous Clinimix, intravenous antiemetic. Gastroenterology team planning upper endoscopy on 08/19/2019. Continue to replete electrolytes as tolerated. 2. She previously had a jejunostomy tube, which was displaced. 3. Chronic kidney disease stage 3, stable. DISPOSITION: Monitor patient inside the hospital. Plan of care discussed with her. Her questions have been answered. Previously, I have had extensive discussion about her medical condition, need for medical compliance, long-term prognosis on previous admissions. cc: Clay Still MD
[2019-08-18] MEDS: PROTONIX IV SCH ×2 (04:20→16:09)
[2019-08-18] MEDS: SODIUM CHLORIDE 0.9% INJ SCH ×4 (04:20→17:22)
[2019-08-18] MEDS: SODIUM CHLORIDE 0.9% INJ PRN ×2 (04:26→23:32)
[2019-08-18] MEDS: PHENERGAN IV PRN ×4 (04:26→23:32)
[2019-08-18 07:51] LABS: CALCIUM 7.9 mg/dL (8.8-10.2); CREATININE 1.4 mg/dL (0.5-0.9); MAGNESIUM 1.9 mg/dL (1.5-2.7); POTASSIUM 3.1 mmol/L (3.5-5.1)
[2019-08-18] MEDS: CLINIMIX E 4.25%-5% SOLUTION 1,000 ML IV SCH ×3 (09:20→22:31)
[2019-08-18] MEDS: 1/2 NS 1,000 ML IV SCH (13:53)
[2019-08-18] MEDS: POTASSIUM CHLORIDE 20 MEQ/SWI 20 MEQ/100 ML IVPB IV SCH ×3 (13:53→18:02)
--- NOTE | 2019-08-18 14:03 | PROGRESS NOTE ---
DATE: 08/18/2019 ADDENDUM: LABORATORY DATA: Labs suggestive of no CBC today. BMP has hypokalemia, hyperchloremia. She has improving BUN and creatinine. MICROBIOLOGY: No positive data. IMAGING: No new imaging. ASSESSMENT AND PLAN: 1. Intractable nausea, vomiting, and acute on chronic dysphagia due to esophageal strictures, requiring multiple dilatations in the past with history of gastroparesis, requiring gastric pacemaker. Continue clear liquid diet, intravenous Clinimix, antiemetics, and prokinetic. Gastroenterology planning endoscopy and possible dilatation. 2. Acute kidney injury and hypokalemia due to intravascular volume depletion. I will give her half-normal saline, and we will replete potassium. Will follow up with [facility] tomorrow. 3. Others. She has had previous history of jejunostomy, which was displaced in the past, chronic kidney dysfunction, medication noncompliance, and she previously did not follow up with [facility]. 4. Disposition. Monitor the patient inside the hospital. Plan of care discussed with her. She is in agreement. All of her questions have been answered. Her code status is DO NOT RESUSCITATE level 1. cc: Clay Still MD
--- NOTE | 2019-08-18 14:06 | PROGRESS NOTE ---
DATE: 08/18/2019 INTERVAL HISTORY: No acute events overnight. She states she is able to keep her liquid diet down. Has not had any bowel movement. We discussed about low potassium, continuing with IV nutrition. GI evaluation on Monday. I answered all of her questions. She does have elevated BUN for which I am repeating her BMP and I am starting her on half-normal saline. VITALS: Temperature of 98.3 degrees, pulse 95, respiratory rate 19, blood pressure 106/73, saturating 100% on room air. PHYSICAL EXAMINATION: Not in acute distress. Oral cavity is moist. She has bilateral parotid enlargement. Lungs: Air entry bilaterally equal. No wheeze, rhonchi, or crackles. Cardiovascular: S1 and S2 are normal. No murmur, rub, or gallop. She has a left-sided chest port. Abdomen: Soft, nontender. No lower extremity edema. She has a right-sided lower side gastric pacemaker and she also has a previous jejunostomy scar. LABORATORY DATA: Otherwise, labs are unremarkable. cc: Clay Still MD
[2019-08-18] MEDS: OFIRMEV 1000 MG/ISOTONIC SOLN 1,000 MG/100 ML BOTTLE IV PRN (18:00)
--- NOTE | 2019-08-18 18:39 | GASTROENTEROLOGY PROGRESS NOTE ---
DATE: 08/17/2019 SUBJECTIVE: Ms. Farris is a 43-year-old female resting in bed, complaining of nausea and vomiting. The patient also complained about mild abdominal tenderness. OBJECTIVE: Vital signs: Temperature 98.4 degrees, pulse 111, respirations 21, blood pressure 106/72, oxygen saturation 100% on room air. General: She is alert, oriented x3 and in no acute distress. HEENT: Pale conjunctivae, no icterus. PERRL. Neck: Supple. Lungs: Clear to auscultation in the anterior bashir. Cardiovascular: Patient is tachycardic. Abdomen: Soft, nontender, nondistended. Active bowel sounds heard in all 4 quadrants. Gastric pacemaker on the right side of the abdomen. Extremities: No clubbing, no cyanosis, no edema. Pedal pulses 2+ present bilaterally. Neurologic: She is alert and oriented x3. LABORATORY DATA: WBCs are 5.85, RBC 3.42, hemoglobin 9.8, hematocrit 29.6, platelet count 208,000. Sodium 140, potassium 3.0, chloride 111, carbon dioxide 15, anion gap 14, BUN 9, creatinine 1.7, glucose 204, calcium 8.2, total bilirubin 0.49, AST 20, ALT 8, alkaline phos 68, albumin 2.6. IMPRESSION AND PLAN: 1. Nausea and vomiting. 2. Dysphagia. 3. Esophageal stricture. 4. Anemia. 5. Gastroparesis . 6. Insulin-dependent diabetes. 7. Acute kidney injury. 8. Hypertension. 9. Constipation. 10. Malnutrition. 11. Hypokalemia. PLAN: Ms Bobby is a 83-year-old female with a history of gastroparesis. GI is following her for nausea, vomiting, and constipation. The patient is receiving antiemetic Phenergan and Zofran for nausea and vomiting. She is also receiving Reglan 10 mg every 8 hours. We will continue to monitor her for the side effects of tardive dyskinesia. The patient is on Clinimix 70 mL for her nutrition. The patient is receiving hyoscyamine sublingual for her abdominal cramps. She is on intravenous fluids, half-normal saline at 50 mL. Patient's potassium was 3.0, patient is receiving intravenous potassium per PCP. She is on gastrointestinal prophylaxis Protonix 40 mg daily. We plan to do EGD on Monday. We will continue to monitor the patient and follow the plan of care per PCP. This plan was discussed with Dr. Whiting. Please call us for any further questions or concerns. Dictated by NELL Anthony for Nidia Whiting MD cc: Nidia Whiting MD [facility]
--- NOTE | 2019-08-18 21:43 | GASTROENTEROLOGY PROGRESS NOTE ---
DATE: 08/18/2019 SUBJECTIVE: Mr. Bobby is a 43-year-old female, resting in bed. She did complain about vomiting yesterday. She has denied any today and she wanted to try some real food instead of just clear liquids. She said she was able to tolerate her clear liquids. OBJECTIVE: Vital Signs: Temperature 98.3 degrees, pulse 95, respirations 19, blood pressure 116/73, oxygen saturation 100% on room air. Her weight is 98 pounds. BMI 16.8 kg/m2. General: She is alert, oriented x3, and in no acute distress. HEENT: Pale conjunctivae. No icterus. PERRL. Neck: Supple. Lungs: Clear to auscultation in the anterior bashir. Cardiovascular: Patient is tachycardic. Abdomen: Soft, nontender, nondistended. Active bowel sounds heard in all 4 quadrants. Extremities: No clubbing, no cyanosis, no edema. Pedal pulses 2+ present bilaterally. Neurologic: She is alert, oriented x3, and in no acute distress. LAB: These labs are from 08/17: WBC is 5.85, RBC 3.42, hemoglobin 9.8, hematocrit 26.6, platelet count is 208,000. Sodium 138, potassium 3.1, chloride 112, carbon dioxide 17, anion gap 8, BUN 23, creatinine 1.4, glucose 258, calcium 7.9, magnesium 1.9. IMPRESSION AND PLAN: 1. Nausea and vomiting. 2. Dysphagia. 3. Esophageal stricture. 4. Anemia. 5. Gastroparesis. 6. Insulin-dependent diabetes. 7. Acute kidney injury. 8. Hypertension. 9. Constipation. 10. Malnutrition. 11. Hypokalemia. PLAN: Ms. Bobby is an 43-year-old female with a history of gastroparesis. Gastroenterology is following her for nausea, vomiting, and constipation. For her nausea and vomiting, the patient is on Phenergan, Zofran and she is receiving Reglan 10 mg. We will continue to monitor the patient for the side effects of tardive dyskinesia. The patient is receiving Clinimix 70 mL/h for her nutrition. She is also receiving hyoscyamine sublingual for her abdominal cramps. She is on IV fluids half-normal saline at 50 mL. The patient is on gastrointestinal prophylaxis protonix 40 mg IV daily. The patient was on clear liquid diet. We have advanced her diet to pureed diet. We will continue to monitor and see how the patient does. The plan is to do an EGD on either Monday or Monday. We will continue to monitor the patient and follow the plan of care per primary care physician. This plan was discussed with Dr. Whiting. Please call us for any further questions or concerns. Dictated by NELL Anthony for Nidia Whiting MD cc: Nidia Whiting MD [facility]
[2019-08-19] MEDS: REGLAN IV SCH ×3 (00:49→17:57)
[2019-08-19] MEDS: CLINIMIX E 4.25%-5% SOLUTION 1,000 ML IV SCH ×2 (08:17→22:39)
[2019-08-19] MEDS: SODIUM CHLORIDE 0.9% INJ PRN ×2 (08:18→16:32)
[2019-08-19] MEDS: SODIUM CHLORIDE 0.9% INJ SCH ×2 (08:18→22:15)
[2019-08-19] MEDS: PHENERGAN IV PRN ×3 (08:18→22:15)
[2019-08-19] MEDS: PROTONIX IV SCH (08:18)
[2019-08-19 09:41] LABS: BASO# 0.02 X1000 (0.0-0.2); BASO% 0.5 % (0.0-0.8); EOS# 0.11 X1000 (0.0-0.7); EOS% 2.7 % (0.0-10.0); HEMATOCRIT 30.6 % (37.0-47.0); HEMOGLOBIN 10.1 g/dL (12.0-16.0); LYMPH# 1.61 X1000 (1.2-3.4); LYMPH% 39.1 % (20.5-51.1); MCH 29.4 PG (27-31); MONO# 0.18 X1000 (0.11-0.59); MONO% 4.4 % (1.7-9.3); MPV 12.6 FL (7.4-10.4); NEUT% 53.3 % (42.2-75.2); PLT 157 X1000 (130-400); RBC 3.44 XMIL (4.2-5.4); RDW 16.7 % (11.5-14.5); WBC 4.12 X1000 (4.8-10.8)
[2019-08-19 10:18] LABS: CALCIUM 8.2 mg/dL (8.8-10.2); CREATININE 1.3 mg/dL (0.5-0.9)
--- NOTE | 2019-08-19 11:53 | GASTROENTEROLOGY PROGRESS NOTE ---
DATE: 08/19/2019 SUBJECTIVE: Ms. Bobby is a 43-year-old, -[place] female resting in bed, complaining of feeling nauseated but has denied any abdominal pain or vomiting. The patient had 1 bowel movement today. OBJECTIVE: Vital Signs: Temperature 98.6 degrees, pulse 93, respirations 14, blood pressure 123/92, oxygen saturation 100% on room air. The patient's weight is 98 pounds. BMI is 16.8 kg/m2. General: She is alert, oriented x3, and in no acute distress. HEENT: Pale conjunctivae. No icterus. PERRL. Neck: Supple. Lungs: Clear to auscultation in the anterior bashir. Cardiovascular: The patient is tachycardic. Abdomen: Soft, nontender, nondistended. Active bowel sounds heard in all 4 quadrants. Extremities: No clubbing, no cyanosis, no edema. Pedal pulses 2+ present bilaterally. Neurologic: She is alert, oriented x3, and in no acute distress. Laboratory Data: WBCs of 4.12, RBCs 3.44, hemoglobin 10.1, hematocrit 30.6, platelet count 157,000. Sodium is 136, potassium 4.0, chloride 109, carbon dioxide 17, anion gap 10, BUN 23, creatinine 1.3, glucose 168, calcium 8.2. IMPRESSION: 1. Nausea and vomiting. 2. Dysphagia. 3. Esophageal stricture. 4. Anemia. 5. Gastroparesis. 6. Insulin-dependent diabetes. 7. Acute kidney injury. 8. Hypertension. 9. Constipation. 10. Malnutrition. 11. Hypokalemia. PLAN: Ms. Bobby is a 43-year-old, -[place]i female with a history of gastroparesis. GI is following her for her nausea, vomiting, and constipation. The patient still has nausea. She is receiving Phenergan, Zofran, and Reglan 10 mg. We will continue to monitor the patient for the side effects of tardive dyskinesia. The patient is also receiving Clinimix 70 mL per hour for nutrition. She is receiving hyoscyamine sublingual for her abdominal cramps. The patient is on a GI prophylaxis with Protonix 40 mg IV daily. Her potassium today was 4.0, hypokalemia is getting resolved. Patient's constipation is also under control, she is having positive bowel movements. We plan to do an EGD tomorrow. Further plan of care will be based on the EGD findings. We have discussed the risks, benefits, and alternatives of the procedure to the patient. The patient acknowledges understanding of the instructions. We will continue to monitor the patient and follow the plan of care per PCP. This plan was discussed with Dr. Haq. Please call us for any further questions or concerns. Dictated by NELL Anthony for Yandel Haq MD cc: Yandel Haq MD I have seen and examined the patient myself and I agree with the above plan of care. Discussed the above with the patient and all questions were answered. [facility]
[2019-08-19] MEDS: 1/2 NS 1,000 ML IV SCH (12:23)
[2019-08-19] MEDS ORDERED: 1/2 NS 1,000 ML IV SCH (17:15)
--- NOTE | 2019-08-19 19:05 | PROGRESS NOTE ---
DATE: 08/19/2019 INTERVAL HISTORY: No acute events overnight. The patient was supposed to go for endoscopy, EGD; however, for some reason that has been postponed until tomorrow. SUBJECTIVE: Ms. Jansen denies any complaints. She states she has had a couple of bowel movements. She was requesting pain medications. I explained to her that IV opioid could compound her poor GI motility issues and that I recommended sublingual medicines and she is okay. I also discussed about her improving kidney function, the need for IV fluids and potassium normalization. VITALS: Temperature 98.5 degrees, pulse 110, respiratory 14, blood pressure 120/90. She is saturating 99% on room air. PHYSICAL EXAMINATION: Not in acute distress. Oral cavity is moist. She is frequently spitting out oral secretions.Lungs: Air entry bilaterally equal. No wheeze, rhonchi, or crackles. She has left-sided chest port. Heart: S1, S2 normal. No murmur, rub or gallop. Abdomen: Soft, mild tenderness. Active bowel sounds. She has previous scars of jejunostomy tube. Mild generalized tenderness. No lower extremity edema. She has a right lower quadrant gastric pacemaker. She is alert and oriented x3. LABS: Suggestive of stable hemoglobin, normalization of potassium, decreasing chloride and improving kidney function. Microbiology: No positive data. No new imaging. ASSESSMENT AND PLAN: 1. Intractable nausea, vomiting, and acute on chronic dysphagia due to esophageal strictures, requiring multiple dilatation in the past with history of gastroparesis status post gastric pacemaker. Continue the patient on clear liquid diet, intravenous Clinimix, antiemetics, and metoclopramide. Gastroenterology team planning esophagogastroduodenoscopy with possible stricture dilatation on 08/20/2019. 2. Acute kidney injury, likely because of intravascular volume depletion leading to hypokalemia because of vomiting. Give her additional intravenous fluid resuscitation. Currently, potassium is normal. Continue to monitor BMP. 3. Others she has had previous history of jejunostomy, which was displaced in the past; recurrent acute kidney injury and possibly chronic kidney dysfunction; medication noncompliance; she previously could not keep her follow-up appointments with [facility]. DISPOSITION: Continue to monitor inside the hospital. Plan of care discussed with the patient and all of her questions have been answered. Her code status DNR level 1. cc: Clay Still MD
[2019-08-19] MEDS: OFIRMEV 1000 MG/ISOTONIC SOLN 1,000 MG/100 ML BOTTLE IV PRN (22:45)
[2019-08-20] MEDS: REGLAN IV SCH ×3 (00:38→15:39)
[2019-08-20] MEDS: 1/2 NS 1,000 ML IV SCH (05:24)
[2019-08-20 07:57] LABS: CALCIUM 8.1 mg/dL (8.8-10.2); CREATININE 1.2 mg/dL (0.5-0.9); MAGNESIUM 1.9 mg/dL (1.5-2.7); POTASSIUM 3.6 mmol/L (3.5-5.1)
[2019-08-20] MEDS: SODIUM CHLORIDE 0.9% INJ SCH (08:24)
[2019-08-20] MEDS: PROTONIX IV SCH (08:25)
[2019-08-20] MEDS ORDERED: XYLOCAINE-MPF 2% ONE (09:09)
[2019-08-20] MEDS ORDERED: DIPRIVAN 1% ONE (09:10)
[2019-08-20] MEDS: PHENERGAN IV PRN ×3 (09:27→21:59)
[2019-08-20] MEDS: SODIUM CHLORIDE 0.9% INJ PRN ×2 (09:27→15:39)
--- NOTE | 2019-08-20 10:43 | ENDOSCOPY OPERATIVE NOTE ---
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 PROCEDURE PERFORMED: EGD, diagnostic MEDICATIONS: Per Anesthesia ESTIMATED BLOOD LOSS: None CONSENT: The patient understands the risks and benefits of the procedure and understands that these r isks include, but are not limited to: sedation, allergic reaction, infection, perforation and/or bleeding. Alternative means of evaluation and treatment include, among others: physical exam, x-rays, and/or surgical intervention. The patient elects to proceed with this endoscopic procedure. DESCRIPTION OF PROCEDURE: During pre-op preparation period all mechanical and medical equipment was c hecked for proper function. Hand hygiene and appropriate measures for infection prevention was taken. After the risks, benefits and alternatives of the procedure were thoroughly explained, Informed consent was verified, confirmed and timeout was successfully executed by the treatment team. The patient was anesthetized with topical anesthesia and the [id number] ([id number]) endoscope was introduced through the mouth and advanced to the esophagus mid. Retroflexion of the stomach was not performed. The gastroscope was then slowly withdrawn and removed. The patient's toleration of the procedure was good. ESOPHAGUS: There was a long benign appearing stricture. The stricture was not traversable. The diam eter measures about 5mm. ADVERSE EVENTS: There were no complications. IMPRESSIONS: There was a long stricture measuring 5mm in diameter. Stricture could not be trice ed. Dilation was not attempted as patient need definitive therapy including partial esophagectomy vs esophageal stent placement. RECOMMENDATIONS: Sip of clears. Liquid oral meds only Recommend consultation with thoracic surgery given failure of serial dilations and patient non-compli ance with medical therapy and follow-up appointments Will follow with you REPEAT EXAM: Charles Cano MD eSigned: Charles Cano MD 08/20/2019 10:42 AM CC: CPT CODES: 19300 Upper gastrointestinal endoscopy including esophagus, stomach, and either the du odenum and/or jejunum as appropriate; diagnostic, with or without collection of specimen(s) by brushing or washing (separate procedure) ICD CODES: 787.20 Dysphagia,unspecified The ICD and CPT codes recommended by this software are interpretations from the data that the [facility] staff has captured with the software. The verification of the translation of this report to the ICD and CPT co arlyn and modifiers is the sole responsibility of the health care institution and practicing physician where this report was generated. [employer] will not be held responsible for the validity of the ICD and CPT codes i ncluded on this report. [employer] assumes no liability for data contained or not contained herein. CPT is a registered tra demark of the [employer]. PATIENT NAME: Kaleigh Bobby MR#: [id number]
[2019-08-20] MEDS: CLINIMIX E 4.25%-5% SOLUTION 1,000 ML IV SCH (15:31)
[2019-08-21] MEDS: 1/2 NS 1,000 ML IV SCH ×2 (02:09→20:37)
[2019-08-21] MEDS: REGLAN IV SCH ×3 (02:35→16:48)
--- NOTE | 2019-08-21 03:53 | PROGRESS NOTE ---
DATE: 08/20/2019 SUBJECTIVE: The patient returned from her EGD. The esophageal dilation was unable to be completed. OBJECTIVE: Vital Signs: Temperature 98.9 degrees, blood pressure 117/94, heart rate 104, respirations 21, O2 saturations 100% on room air. General: This is a chronically ill-appearing, middle-aged female sitting up in bed in no acute distress. Heart: S1, S2, normal. Tachycardic. Lungs: Clear to auscultation bilaterally. No wheezing. No rales. No rhonchi. Abdomen: Positive bowel sounds. Soft, nontender, nondistended. Extremities: No edema. No cyanosis. Neurologic: The patient is alert and oriented x4. LABS: Sodium 136, potassium 3.6, chloride 109, CO2 18, BUN 23, creatinine 1.2, glucose 160, magnesium 1.9. ASSESSMENT AND PLAN: 1. Chronic esophageal stricture, status post multiple balloon dilations. An esophagogastroduodenoscopy with esophageal dilation was attempted today; however, the stricture was too narrow and so the dilation was not done. The case was discussed with Dr. Brennan Peres, the management rep at [facility], who recommended jejunostomy tube placement or serial esophageal dilations every 4 weeks as tolerated. He stated that the patient would not be a good candidate for a partial esophagectomy or esophageal stent placement. We will discuss with GI further. 2. Acute kidney injury. Improved. Continue with intravenous fluid hydration. 3. Insulin-dependent diabetes mellitus. Continue on sliding scale insulin. 4. Nutrition. The patient is currently on Clinimix and has been started on a clear liquid diet as tolerated. The patient will need a more permanent form of nutrition. Again, we will discuss this with the patient and GI. 5. Severe gastroparesis, status post gastric pacemaker. Aware. The patient is currently on Reglan. We will continue with this at this time. 6. Metabolic acidosis. Improved. 7. Esophagitis. Continue on Protonix. 8. Deep vein thrombosis prophylaxis. Continue with sequential compression devices. cc: Debra Maravilla MD
[2019-08-21] MEDS: CLINIMIX E 4.25%-5% SOLUTION 1,000 ML IV SCH ×2 (05:46→20:35)
[2019-08-21] MEDS: PHENERGAN IV PRN ×3 (05:46→18:31)
[2019-08-21 07:47] LABS: BASO# 0.01 X1000 (0.0-0.2); BASO% 0.3 % (0.0-0.8); EOS% 2.9 % (0.0-10.0); HEMATOCRIT 26.4 % (37.0-47.0); HEMOGLOBIN 8.6 g/dL (12.0-16.0); LYMPH# 1.39 X1000 (1.2-3.4); LYMPH% 39.8 % (20.5-51.1); MCH 29.2 PG (27-31); MCHC 32.6 g/dL (33-37); MCV 89.5 FL (81-99); MONO# 0.21 X1000 (0.11-0.59); MPV 12.9 FL (7.4-10.4); NEUT# 1.78 X1000 (1.4-6.5); PLT 148 X1000 (130-400); RBC 2.95 XMIL (4.2-5.4); RDW 15.9 % (11.5-14.5); WBC 3.49 X1000 (4.8-10.8)
[2019-08-21 08:01] LABS: AGAP 10; BUN 22 mg/dL (8-22); CALCIUM 8.2 mg/dL (8.8-10.2); CHLORIDE 110 mmol/L (98-107); COSMO 284; ESTIMATED GFR > 60; GLUCOSE 155 mg/dL (70-104); POTASSIUM 3.5 mmol/L (3.5-5.1); SODIUM 139 mmol/L (136-145); TCO2 19 mmol/L (25-35)
[2019-08-21] MEDS: SODIUM CHLORIDE 0.9% INJ SCH (09:58)
[2019-08-21] MEDS: PROTONIX IV SCH (09:58)
--- NOTE | 2019-08-21 12:04 | GASTROENTEROLOGY PROGRESS NOTE ---
DATE: 08/21/2019 SUBJECTIVE: Ms. Bobby is a 43-year-old female. She was resting in bed. She did mention that she was having difficulty swallowing even the liquids, but has denied any nausea, vomiting, and has not been having positive bowel movements. OBJECTIVE: Vital Signs: Temperature 98.5, pulse 100, respirations 18, blood pressure 138/80, oxygen saturation is 92% on room air. Her weight is 98 pounds. BMI is 16.8 kg/m2. General: She is alert, oriented x3, and in no acute distress. HEENT: Pale conjunctivae, no icterus. PERRL. Neck: Supple. Lungs: Clear to auscultation in the anterior bashir. Cardiovascular: The patient is tachycardic. Abdomen: Soft, nontender, nondistended. Active bowel sounds heard in all 4 quadrants. Extremities: No clubbing, no cyanosis, no edema. Pedal pulses 2+ present bilaterally. Neurologic: She is alert, oriented x3. LABS: WBCs 3.49, RBC 2.95, hemoglobin 8.6, hematocrit 26.4, platelet count is 148. Sodium 139, potassium 3.5, chloride 110, carbon dioxide 19, anion gap is 10. BUN is 22, creatinine 1.0, calcium 8.2. IMPRESSION: 1. Nausea and vomiting. 2. Dysphagia. 3. Esophageal strictures. 4. Anemia. 5. Gastroparesis. 6. Insulin-dependent diabetes. 7. Acute kidney injury. 8. Hypertension. 9. Constipation. 10. Malnutrition. PLAN: Ms. Bobby is a 43-year-old female with a history of gastroparesis. GI has been following her for nausea, vomiting, and constipation. The patient's nausea, vomiting and abdominal pain is under control, but the patient is having difficulty swallowing even clear liquids. An endoscopy was done yesterday, and there was a long stricture measuring 5 mm in diameter. Stricture could not be traversed. Dilation was not attempted. Partial esophagectomy versus esophageal stent placement needs to be evaluated. The patient has been recommended to have sips of clear liquids and liquid oral medications. We recommend having a consultation with thoracic surgeon at the [facility] [place] because of the failure of the serial dilations and the patient's noncompliance with the medical therapy and follow up appointments. The patient is on antiemetic medicine, Zofran and Phenergan p.r.n. as needed. She is also receiving Reglan 10 mg IV scheduled. The patient is on Clinimix for her nutrition and is on Levsin for her abdominal cramps as needed. She is receiving Protonix 40 mg IV as scheduled. We will continue to monitor the patient and follow the plan of care per PCP. This plan was discussed with Dr. Cano. Please call us for any further questions or concerns. Dictated by NELL Anthony for Charles Cano MD Physician Attestation I have seen and examined the patient. I have discussed and reviewed the note by Emily CAMEJO and agree with findings and plan as documented. In brief, Ms. Kaleigh Bobby is a 43 year non-compliant woman with h/o IDDM2, depression, gastroparesis s/p gastric pacemaker, chronic CHIQUIS, h/o NSAID-induced PUD and esophageal stricture requiring PPI BID and multiple EGD for esophageal dilation who presents with worsening dysphagia. EGD shows persistent stricture to 5mm in diameter at 30cm from incisors. I discussed with GI [facility] possible transfer for surgical evaluation. [facility] if they would accept patient. Discussed plan with patient and primary team. Will follow with you. Continue Clinimix, PPI, antiemetics prn, and sips of clears. MTDD
--- NOTE | 2019-08-21 20:03 | PROGRESS NOTE ---
DATE: 08/21/2019 SUBJECTIVE: The patient is resting comfortably. She states that she cannot swallow liquids at all. She does complain of occasional abdominal pain. OBJECTIVE: Vital Signs: Temperature 98 degrees, blood pressure 148/93, heart rate 98, respirations 18, O2 saturation is 100% on room air. General: This is a chronically ill-appearing middle-aged female lying in bed in no acute distress. Heart: S1, S2 normal. Regular rate and rhythm. Lungs: Clear to auscultation bilaterally. Abdomen: Positive bowel sounds. Soft, nontender, nondistended. Extremities: No edema. No cyanosis. Neurologic: The patient is alert and oriented x3. LABORATORY DATA: White blood cell count 3.4, hemoglobin 8.6, hematocrit 26, platelets 148,000. Sodium 139, potassium 3.5, chloride 110, CO2 19, BUN 22, creatinine 1, glucose 155. ASSESSMENT AND PLAN: 1. Chronic esophageal stricture status post multiple failed balloon dilations. I discussed the case with the Dr. Acevedo, a cardiovascular surgeon at [facility] and he has accepted the patient for transfer for possible partial esophagectomy. At this time, we will continue with Clinimix and IV Protonix. 2. Insulin-dependent diabetes mellitus. Continue on sliding scale insulin. We will hold off on using long-acting insulin since the patient is not eating. 3. Severe diabetic gastroparesis status post gastric pacemaker. Aware. Continue on p.r.n. Zofran. The patient is also receiving Reglan. 4. Esophagitis. Continue on IV protonix. 5. Disposition. The patient has been accepted at [facility] by Dr. Acevedo. They will call us when the patient's bed has been assigned. cc: Debra Maravilla MD [facility]
[2019-08-22] MEDS: PHENERGAN IV PRN ×4 (00:13→18:39)
[2019-08-22] MEDS: SODIUM CHLORIDE 0.9% INJ SCH ×2 (00:13→08:29)
[2019-08-22] MEDS: REGLAN IV SCH ×3 (00:14→17:20)
[2019-08-22 08:25] LABS: ESTIMATED GFR > 60
[2019-08-22] MEDS: PROTONIX IV SCH (08:29)
[2019-08-22 08:33] LABS: AGAP 13; BUN 21 mg/dL (8-22); CHLORIDE 110 mmol/L (98-107); COSMO 282; GLUCOSE 158 mg/dL (70-104); POTASSIUM 3.8 mmol/L (3.5-5.1); SODIUM 138 mmol/L (136-145); TCO2 15 mmol/L (25-35)
--- NOTE | 2019-08-22 10:34 | GASTROENTEROLOGY PROGRESS NOTE ---
DATE: 08/22/2019 SUBJECTIVE: Ms. Bobby is a 43-year-old, -[place] female. She is resting in bed. She has denied any vomiting or any bowel movements but she is complaining of being nauseated and not able to swallow any liquids and even her own secretions. OBJECTIVE: Vital Signs: Temperature 99.3 degrees, pulse 96, respirations 18, blood pressure 130/88, oxygen saturation 100% on room air. Her weight is 96 pounds. BMI is 16.5 kg/m2. General: She is alert, oriented x3, and in no acute distress. HEENT: Pale conjunctivae. No icterus. PERRL. Neck: Supple. Lungs: Clear to auscultation in the anterior bashir. Cardiovascular: The patient is tachycardic. Abdomen: Soft, nontender, nondistended. Active bowel sounds heard in all 4 quadrants. Extremities: No clubbing, no cyanosis, no edema. Pedal pulses 2+ present bilaterally. Neurologic: She is alert, oriented x3. Her hematology is from 08/21/2019. WBCs are 3.49, RBCs 2.95, hemoglobin 8.6, hematocrit 26.4, platelet count is 148,000. Sodium 138, potassium 3.8, chloride 110, carbon dioxide 15, anion gap is 13, BUN is 21, creatinine is 1.0, glucose is 158, calcium is 8.0. IMPRESSION AND PLAN: 1. Nausea and vomiting. 2. Dysphagia. 3. Esophageal stricture. 4. Anemia. 5. Gastroparesis. 6. Insulin-dependent diabetes. 7. Acute kidney injury. 8. Hypertension. 9. Constipation. 10. Malnutrition. PLAN: Ms. Bobby is a 43-year-old, -[place] female with a history of gastroparesis. GI has been following her for her nausea, vomiting, and constipation. The patient's vomiting and abdominal pain are under control. Her constipation is under control but the patient's nausea is not getting resolved and she is complaining of difficulty swallowing anything. An endoscopy was done and we were unable to do the dilation. Recommendation is partial esophagectomy versus esophageal stent placement that needs to be evaluated. Dr. Cano has discussed with the GI at [facility] for possible transfer for surgical evaluation. [facility] Thor[facility] to see if they would except the patient. Dr. Carrero was able to get a bed at [facility] and they have agreed to evaluate the patient and treat her. This plan has been discussed with the patient. She is currently on clear liquids and is receiving Phenergan and Zofran as well as Reglan which is scheduled for her nausea and vomiting. The patient is on GI prophylaxis, Protonix IV daily. She is receiving Clinimix for her nutrition and is on Levsin for her abdominal cramps. We will continue to monitor the patient and follow the plan of care per PCP. This plan was discussed with Dr. Cano. Please call us for any further questions or concerns. Dictated by NELL Anthony for Charles Cano MD Physician Attestation I have seen and examined the patient. I have discussed and reviewed the note by Emily CAMEJO and agree with findings and plan as documented. In brief, Ms. Kaleigh Bobby is a 43 year non-compliant woman with h/o IDDM2, depression, gastroparesis s/p gastric pacemaker, chronic CHIQUIS, h/o NSAID-induced PUD, GERD with esophagitis and esophageal stricture requiring PPI BID and multiple EGD for esophageal dilation who presents with worsening dysphagia. Repeat EGD showed persistent stricture to 5mm in diameter at 30cm from incisors that could not be traversed. She has failed conservative mgmt with serial dilations and medication mgmt due to non-compliance. She was accepted at [facility] for surgical evaluation. Continue supportive care with Clinimix, antiemetics, and PPI. MTDD
[2019-08-22] MEDS: CLINIMIX E 4.25%-5% SOLUTION 1,000 ML IV SCH (11:42)
[2019-08-22] MEDS: 1/2 NS 1,000 ML IV SCH (17:23)
--- NOTE | 2019-08-22 20:16 | PROGRESS NOTE ---
DATE: 08/22/2019 SUBJECTIVE: The patient is unable to swallow her own secretions. She states that she feels about the same. OBJECTIVE: Vital Signs: Temperature 98.6 degrees, blood pressure 137/74, heart rate 101, respirations 18, O2 saturations 96% on room air. General: This is a thin, emaciated, middle-aged female lying in bed in no acute distress. Heart: S1, S2 normal. Regular rate and rhythm. Lungs: Equal air entry bilaterally. No wheezing. No rales. Abdomen: Positive bowel sounds. Soft, nontender, nondistended. Extremities: No edema. No cyanosis. Neurologic: The patient is alert and oriented x4. LABS: Reviewed. ASSESSMENT AND PLAN: 1. Chronic esophageal stricture status post multiple failed balloon dilations. The patient has been accepted at [facility]. The patient will be transferred once a bed is available. 2. Insulin-dependent diabetes mellitus. Continue on the sliding scale insulin. 3. Severe diabetic gastroparesis status post gastric pacemaker. Aware. 4. Esophagitis. Continue on IV Protonix. 5. DVT prophylaxis. Continue on lovenox. 6. Disposition. The patient has been accepted at [facility]. The patient will be transferred once a bed has been assigned. cc: Debra Maravilla MD MTDD
[2019-08-23] MEDS: REGLAN IV SCH ×3 (00:34→15:36)
[2019-08-23] MEDS: LOVENOX SUBQ SCH ×2 (00:34→20:25)
[2019-08-23] MEDS: PHENERGAN IV PRN ×4 (00:34→18:13)
[2019-08-23] MEDS: CLINIMIX E 4.25%-5% SOLUTION 1,000 ML IV SCH ×2 (00:36→15:36)
[2019-08-23] MEDS: 1/2 NS 1,000 ML IV SCH ×2 (09:34→12:34)
[2019-08-23] MEDS: PROTONIX IV SCH (09:34)
[2019-08-23] MEDS: SODIUM CHLORIDE 0.9% INJ SCH (09:34)
[2019-08-23 09:37] LABS: BASO# 0.01 X1000 (0.0-0.2); BASO% 0.3 % (0.0-0.8); EOS# 0.11 X1000 (0.0-0.7); HEMATOCRIT 26.3 % (37.0-47.0); HEMOGLOBIN 8.3 g/dL (12.0-16.0); LYMPH% 30.2 % (20.5-51.1); MCH 28.6 PG (27-31); MCHC 31.6 g/dL (33-37); MCV 90.7 FL (81-99); MONO% 5.5 % (1.7-9.3); NEUT# 2.22 X1000 (1.4-6.5); PLT 143 X1000 (130-400); RDW 15.6 % (11.5-14.5); WBC 3.64 X1000 (4.8-10.8)
[2019-08-23 10:03] LABS: MAGNESIUM 1.8 mg/dL (1.5-2.7); PHOSPHORUS 4.3 mg/dL (2.7-4.5)
[2019-08-23 10:05] LABS: AGAP 11; BUN 22 mg/dL (8-22); CALCIUM 8.5 mg/dL (8.8-10.2); CHLORIDE 112 mmol/L (98-107); COSMO 289; CREATININE 1.1 mg/dL (0.5-0.9); ESTIMATED GFR > 60; GLUCOSE 145 mg/dL (70-104); POTASSIUM 3.9 mmol/L (3.5-5.1); SODIUM 142 mmol/L (136-145); TCO2 19 mmol/L (25-35)
--- NOTE | 2019-08-23 10:42 | GASTROENTEROLOGY PROGRESS NOTE ---
DATE: 08/23/2019 SUBJECTIVE: Ms. Bobby is a 43-year-old -Chinese female resting in bed. She mentioned feeling much better. She was able to tolerate her liquids a little bit better than yesterday. Denied any nausea and vomiting OBJECTIVE: Vital Signs: Temperature 99.1 degrees, pulse 97, respirations 18, blood pressure 120/90, oxygen saturation 100% on room air. The patient's weight is 96 pounds. BMI is 16.5 kg/m2. General: She is alert, oriented x3, in no acute distress. HEENT: Pale conjunctivae. No icterus. PERRL. Neck: Supple. Lungs: Clear to auscultation in the anterior bashir. Cardiovascular: Patient is tachycardic. Abdomen: Soft, nontender, nondistended. Active bowel sounds heard in all 4 quadrants. Extremities: No clubbing, no cyanosis, no edema. Pedal pulses 2+ present bilaterally. Neurologic: She is alert and oriented x3. LABS: WBCs 3.64, RBC 2.90, hemoglobin 8.3, hematocrit 26.3, platelet count is 143,000. Sodium 142, potassium 3.9, chloride 112, carbon dioxide 19, anion gap 11, BUN 12, creatinine 1.1, glucose 145, calcium 8.5. IMPRESSION AND PLAN: - Dysphagia. - Esophageal stricture. - Nausea and vomiting. - Blood loss anemia - Gastroparesis - IDDM2 - [place] - Constipation - Protein calorie malnutrition. PLAN: Ms. Bobby is a 43-year-old -Chinese female with a history of gastroparesis. GI has been following her for dysphagia from known esophageal stricture. Patient's vomiting and abdominal pain are under control, she still has some nausea. The patient has been accepted at [place] for surgical evaluation. She is awaiting for the bed availability. We will continue to monitor the patient and follow the plan of care per PCP. This plan was discussed with Dr. Cano. Please call us for any further questions or concerns. Dictated by NELL Anthony for Charles Cano MD Physician Attestation I have seen and examined the patient. I have discussed and reviewed the note by Emily CAMEJO and agree with findings and plan as documented. [facility]
[2019-08-23] MEDS: HUMULIN R SUBQ SCH ×2 (15:36→20:24)
[2019-08-23] MEDS: SODIUM CHLORIDE 0.9% INJ PRN (18:13)
[2019-08-24] MEDS: REGLAN IV SCH (00:47)
[2019-08-24] MEDS: PHENERGAN IV PRN (00:47)
[2019-08-24] MEDS: SODIUM CHLORIDE 0.9% INJ PRN (00:47)
[2019-08-24] MEDS: CLINIMIX E 4.25%-5% SOLUTION 1,000 ML IV SCH (04:37)
[2019-08-24] MEDS: 1/2 NS 1,000 ML IV SCH (04:38)
[2019-08-24] MEDS: HUMULIN R SUBQ SCH (06:09)
[2019-08-24] MEDS: ZOFRAN IV PRN (07:26)
[2019-08-24 08:24] VITALS: BP 151/98
[2019-08-24 08:29] LABS: BASO# 0.01 X1000 (0.0-0.2); BASO% 0.3 % (0.0-0.8); EOS# 0.09 X1000 (0.0-0.7); EOS% 2.7 % (0.0-10.0); HEMATOCRIT 24.4 % (37.0-47.0); HEMOGLOBIN 7.8 g/dL (12.0-16.0); LYMPH# 1.19 X1000 (1.2-3.4); LYMPH% 35.3 % (20.5-51.1); MCV 90.7 FL (81-99); MONO# 0.22 X1000 (0.11-0.59); MONO% 6.5 % (1.7-9.3); MPV 12.9 FL (7.4-10.4); NEUT# 1.86 X1000 (1.4-6.5); NEUT% 55.2 % (42.2-75.2); PLT 134 X1000 (130-400); RBC 2.69 XMIL (4.2-5.4); RDW 15.4 % (11.5-14.5); WBC 3.37 X1000 (4.8-10.8)
[2019-08-24 09:04] LABS: AGAP 13; BUN 21 mg/dL (8-22); CALCIUM 8.1 mg/dL (8.8-10.2); CHLORIDE 108 mmol/L (98-107); COSMO 281; ESTIMATED GFR > 60; GLUCOSE 138 mg/dL (70-104); SODIUM 138 mmol/L (136-145); TCO2 17 mmol/L (25-35)
--- NOTE | 2019-08-25 12:42 | DISCHARGE SUMMARY ---
ADMISSION DATE: 08/15/2019 DISCHARGE DATE: 08/24/2019 FINAL DISCHARGE DIAGNOSES: 1. Chronic esophageal stricture, status post multiple failed balloon dilations. 2. Insulin-dependent diabetes mellitus. 3. Severe diabetic gastroparesis, status post gastric pacemaker. 4. Esophagitis. 5. Acute kidney injury. 6. Hypertension. 7. Metabolic acidosis. CONSULTATIONS: GI consultation with Dr. Haq. PROCEDURES: An EGD was attempted on 08/20/2019, and it was found that the patient had a 5 mm stricture in the distal esophagus. HOSPITAL COURSE: Ms. Bobby is a 43-year-old female with a history of multiple medical problems, including chronic esophageal stenosis, status post multiple failed balloon dilations, insulin- dependent diabetes mellitus, medication noncompliance, hypertension, and insulin-dependent diabetes mellitus, who presented to the ER with a chief complaint of abdominal pain as well as persistent nausea, vomiting, and an inability to swallow liquids or solids. The patient was admitted to the Hospitalist Service. The patient was made n.p.o. and started on IV Protonix as well as Clinimix for nutrition. The patient was taken for endoscopy on 08/20/2019. During the endoscopy, it was noted that the patient had a 5 mm stricture, and the scope was unable to be advanced to dilate the stricture. This was discussed with the patient, and it was recommended that the patient be considered for a possible partial esophagectomy. The case was discussed with Dr. Acevedo, a CV surgeon at [facility], who accepted the patient for transfer. The patient was transferred to [facility] on 08/23/2019. cc: Debra Maravilla MD
== END 2019-08-24 09:18 | disposition short-term general hospital (02) | DRG 391 ==
LOC: ED 11:41 → SUATTDRO 15:57 → 3N 15:57
PROVIDERS: ATTEND Internal Medicine

== ENCOUNTER 2019-09-18 16:25 | Inpatient (IN) ==
[2019-09-18] MEDS ORDERED: NS 1,000 ML IV ONE ×2 (17:09→18:41)
[2019-09-18] MEDS ORDERED: REGLAN IV ONE (17:09)
[2019-09-18] MEDS ORDERED: XYLOCAINE-MPF 1% 5 ML ONE (17:50)
[2019-09-18 18:27] LABS: BASO# 0.02 X1000 (0.0-0.2); BASO% 0.1 % (0.0-0.8); HEMOGLOBIN 11.8 g/dL (12.0-16.0); IMM GRAN# 0.04 X1000 (0.0-0.04); IMM GRAN% 0.2 % (0.0-0.5); LYMPH# 1.29 X1000 (1.2-3.4); LYMPH% 7.3 % (20.5-51.1); MCH 28.4 PG (27-31); MCHC 34.7 g/dL (33-37); MCV 81.7 FL (81-99); MONO# 0.49 X1000 (0.11-0.59); MONO% 2.8 % (1.7-9.3); MPV 11.3 FL (7.4-10.4); NEUT# 15.76 X1000 (1.4-6.5); NEUT% 89.6 % (42.2-75.2); PLT 388 X1000 (130-400); RBC 4.16 XMIL (4.2-5.4); RDW 16.3 % (11.5-14.5)
[2019-09-18 19:05] LABS: ALBUMIN 3.5 g/dL (3.5-5.0); CALCIUM 8.8 mg/dL (8.8-10.2); TOTAL BILIRUBIN 0.2 mg/dL (0.20-1.00); TOTAL PROTEIN 7.1 g/dL (6.3-8.3)
[2019-09-18 19:09] LABS: POTASSIUM 2.2 mmol/L (3.5-5.1)
[2019-09-18] MEDS ORDERED: NS + KCL 40 MEQ 1,000 ML IV SCH (19:15)
[2019-09-18 19:21] LABS: BE -13.1 mmoll (-2.0-2.0); BLOOD TYPE VENOUS; HCO3-(ACT) 14.7 mmoll (22-27); PCO2(98.6) 28 mmHg (40-60); PO2(98.6) 102 mmHg (30-55); SAMPLE BLOOD; SAO2 99.2 % (40.0-85.0); pH(98.6) 7.26 (7.32-7.43)
[2019-09-18] MEDS ORDERED: COMPAZINE IV ONE (21:20)
[2019-09-18 21:51] LABS: URINE SOURCE CATH
[2019-09-18 22:00] LABS: BILIRUBIN URINE NEGATIVE (NEGATIVE); BLOOD URINE TRACE (NEGATIVE); COLOR YELLOW; GLUCOSE URINE NEGATIVE (NEGATIVE); KETONE URINE NEGATIVE (NEGATIVE); LEUKOCYTES URINE LARGE (NEGATIVE); NITRITE URINE NEGATIVE (NEGATIVE); PH URINE 5.5; PROTEIN URINE 100 mg/dL (NEGATIVE); SP GRAVITY URINE 1.028; TURBIDITY URINE TURBID (CLEAR); UROBILINOGEN URINE NORMAL (NORMAL)
[2019-09-18 22:24] LABS: UR EPITHELIAL CELLS >10 /HPF (<10); URINE BACTERIA 4+ /HPF; URINE WBC <10 /HPF (<10)
--- NOTE | 2019-09-18 22:46 | EKG Report ---
Test Performed on : 09/18/2019 8:43:55 PM Test Reason : emboli Blood Pressure : / mmHG Vent. Rate : 090 BPM Atrial Rate : 090 BPM P-R Int : 164 ms QRS Dur : 066 ms QT Int : 380 ms P-R-T Axes : 046 032 085 degrees QTc Int : 464 ms Normal sinus rhythm. Septal infarct , age undetermined Abnormal ECG No previous ECGs available Unconfirmed Result
[2019-09-19] MEDS: SODIUM CHLORIDE 0.9% INJ PRN ×2 (01:11→08:20)
[2019-09-19] MEDS: PHENERGAN IV PRN ×4 (01:11→20:18)
[2019-09-19] MEDS: NS + KCL 40 MEQ 1,000 ML IV SCH ×4 (01:14→23:04)
[2019-09-19 02:27] LABS: INR 0.98; PROTIME 13.5 Seconds (11.0-16.0)
[2019-09-19 07:22] LABS: HEMATOCRIT 29.1 % (37.0-47.0); HEMOGLOBIN 10.1 g/dL (12.0-16.0); MCH 28.9 PG (27-31); MCHC 34.7 g/dL (33-37); MCV 83.4 FL (81-99); MPV 12.9 FL (7.4-10.4); RBC 3.49 XMIL (4.2-5.4); RDW 16.9 % (11.5-14.5); WBC 20.47 X1000 (4.8-10.8)
[2019-09-19 07:49] LABS: ALBUMIN 3.3 g/dL (3.5-5.0); CALCIUM 8.5 mg/dL (8.8-10.2); CREATININE 2.3 mg/dL (0.5-0.9); MAGNESIUM 2.4 mg/dL (1.5-2.7); POTASSIUM 3.3 mmol/L (3.5-5.1); TOTAL BILIRUBIN 0.2 mg/dL (0.20-1.00); TOTAL PROTEIN 6.4 g/dL (6.3-8.3)
--- NOTE | 2019-09-19 07:49 | Diag Imaging Result Doc PS360 ---
EXAM: CHEST-1 VIEW - 09/19/2019 HISTORY: sepsis protocol TECHNIQUE: One view chest COMPARISON: 08/15/2019 chest two views FINDINGS: Heart size appears within normal limits. Inspiration is slightly shallow. Central venous catheter remains in place. There is mild artifact over the left lung related to tubing associated with the central venous catheter. The lungs appear grossly clear. There is no pleural effusion or pneumothorax identified. IMPRESSION: Slightly shallow inspiration. No discrete pneumonia. Electronically signed by Vernon Bowen 09/19/2019 7:46 AM
--- NOTE | 2019-09-19 11:13 | PROVIDER DOCUMENTATION ---
This chart was entered by Alice Blair Scribe, acting as scribe for Adela Cormier MD. HPI-Abdominal Pain/GI Problem - General Source: patient, family - History of Present Illness-ABD Nature of Presenting Problems: Pt is a 44 yobf with c/o nausea, vomiting and lack of appetite. Pt is a diabetic and off all her meds. Pt appears lethargic, tired and slow to respond. Pt gives off a sweet odor when person is close to her. Abdominal Pain Onset Location: reports: generalized abdomen Quality of Pain: reports: cramping Severity in ED: reports: moderate Onset/Duration: reports: 3 days ago Timing: reports: still present, constant Activities at Onset: reports: light activity Associated Symptoms: reports: muscle aches, nausea, vomiting, weakness Bruising or Bleeding Gums?: No <Adeal Cormier - Last Filed: 09/18/19 19:00> <Charles Adrian - Last Filed: 09/18/19 22:11> - General Chief Complaint: Nausea/Vomiting Stated Complaint: VOMITING/ABD PAIN Time Seen by Provider: 09/18/19 16:57 Allergies/Adverse Reactions: Patient Allergies Allergy/AdvReac Type Severity Reaction Status Date / Time No Known Allergies Allergy Verified 08/15/19 14:06 Home Medications: Home Medication List Medication Instructions Recorded Confirmed Last Taken Type NK [No Home Medications] 09/18/19 09/18/19 Unknown History Review of Systems - Adult - REVIEW OF SYSTEMS - ADULT Constitutional: denies: chills, fever Eyes: reports: no symptoms reported Ears, Nose, Mouth & Throat: reports: no symptoms reported Cardiovascular: reports: see HPI. denies: syncope Respiratory: reports: no symptoms reported Gastrointestinal: reports: abdominal pain, nausea, vomiting Genitourinary: reports: no symptoms reported Musculoskeletal: reports: see HPI, muscle weakness Integumentary: reports: no symptoms reported Neurological: reports: no symptoms reported Psychiatric: reports: no symptoms reported Endocrine: reports: no symptoms reported Hematologic/Lymphatic: reports: no symptoms reported Allergic/Immunologic: reports: no symptoms reported All Other Systems: Reviewed and Negative <Adela Cormier - Last Filed: 09/18/19 19:00> Past History - Adult - PAST MEDICAL HISTORY-ADULT Review of Records: reports: Old Records Reviewed, Nursing Assessment Review, Medications Reviewed, Social history reviewed & non-contributory. Major Childhood Illnesses: reports: denies history Cardiovascular: reports: HTN, hyperlipidemia Respiratory: reports: denies history Gastrointestinal: reports: GERD (with esophagitis and stenosis), GI bleed, ulcer , other (diabetic gastroparesis, erosive gastritis and esophagitis; gastric pacemaker) Obstetrical/Gynecological: reports: denies history Genitourinary: reports: kidney disease, other (ammenorrhea for 1 year) Musculoskeletal: reports: denies history Neurological: reports: other (DM neuropathy) Psychiatric: reports: anxiety, depression Endocrine/Immune: reports: anemia, Diabetes Other Conditions: reports: denies history Additional History: frequent ER visits - PRIOR SURGERIES/PROCEDURES Surgical/Procedure History: reports: cholecystectomy, indwelling device (Portacath), other (gastric stimulator) - IMMUNIZATION STATUS Childhood Immunizations: See Nurse Assessment Flu Vaccine: See Nurse Assessment - FAMILY HISTORY Family History: reviewed, not pertinent - SOCIAL HISTORY Living Situation: family <Adela Cormier - Last Filed: 09/18/19 19:00> Physical Exam-General - PHYSICAL EXAM-ADULT Initial Vital Signs Reviewed: Yes (HR 93) - CONSTITUTIONAL General Appearance: moderate distress, thin, lethargic, slow to respond <Adela Cormier - Last Filed: 09/18/19 19:00> Progress - PLAN OF CARE/RESULTS Progress/Plan/Lab Results: Vital Signs - 8 hr 09/18/19 16:33 Temperature 98.5 F Pulse Rate 93 H Respiratory Rate 18 Blood Pressure 107/77 O2 Sat by Pulse Oximetry 97 Laboratory Results - last 24 hr 09/18/19 16:42 POC Glucose 286 H D Orders Category Date Time Status Saline Loc DIRECTED Care 09/18/19 17:08 Ordered NPO Diet 09/18/19 17:08 Active AMYLASE [CHEM] Stat Lab 09/18/19 17:08 Ordered CBC WITH ELECTRONIC DIFF [HEME] Stat Lab 09/18/19 17:08 Ordered COMPREHENSIVE METABOLIC PANEL [CHEM] Stat Lab 09/18/19 17:08 Uncollected LIPASE [CHEM] Stat Lab 09/18/19 17:08 Uncollected URINALYSIS W/POSS RFLX CULT [URINALYSIS] Stat Lab 09/18/19 17:08 Uncollected Result Diagrams: 09/18/19 18:00 09/18/19 18:00 - CHANGE OF SHIFT REPORT (ED Provider) 1 Report Given and Care Transferred to:: Dr Adrian Time of Transfer: 19:00 Items Pending: Labs <Adela Cormier - Last Filed: 09/18/19 19:00> - PLAN OF CARE/RESULTS Progress/Plan/Lab Results: Vital Signs - 8 hr 09/18/19 16:33 09/18/19 18:00 09/18/19 20:27 Temperature 98.5 F 97.8 F 98 F Pulse Rate 93 H 107 H 100 H Respiratory Rate 18 20 Blood Pressure 107/77 138/102 97/76 O2 Sat by Pulse Oximetry 97 100 100 09/18/19 21:12 Temperature Pulse Rate Respiratory Rate Blood Pressure 124/91 O2 Sat by Pulse Oximetry 96 Laboratory Results - last 24 hr 09/18/19 09/18/19 09/18/19 16:42 18:00 18:00 WBC 17.60 H RBC 4.16 L Hgb 11.8 L Hct 34.0 L MCV 81.7 MCH 28.4 MCHC 34.7 RDW Std Deviation 16.3 H Plt Count 388 MPV 11.3 H Immature Gran % (Auto) 0.2 Neut % (Auto) 89.6 H Lymph % (Auto) 7.3 L Graham % (Auto) 2.8 Eos % (Auto) 0.0 Baso % (Auto) 0.1 Immature Gran # (Auto) 0.04 Neut # (Auto) 15.76 H Lymph # (Auto) 1.29 Graham # (Auto) 0.49 Eos # (Auto) 0.00 Baso # (Auto) 0.02 Specimen Type VBG pH VBG pCO2 VBG pO2 VBG HCO3 VBG O2 Saturation VBG Base Excess VBG Lactate Sodium Potassium Chloride Carbon Dioxide Anion Gap BUN Creatinine Estimated GFR/1.73 m2 BUN/Creatinine Ratio Glucose POC Glucose 286 H D Calculated Osmolality Calcium Total Bilirubin AST ALT Alkaline Phosphatase Total Protein Albumin Globulin Albumin/Globulin Ratio Amylase 433 H Lipase Urine Source Urine Color Urine Turbidity Urine pH Ur Specific [place] Urine Protein Ur Glucose (Stick) Ur Ketones (Stick) Urine Blood Urine Nitrite Urine Bilirubin Urobilinogen Dipstick Urine Leukocytes Acetone Level 09/18/19 09/18/19 09/18/19 18:00 18:00 19:01 WBC RBC Hgb Hct MCV MCH MCHC RDW Std Deviation Plt Count MPV Immature Gran % (Auto) Neut % (Auto) Lymph % (Auto) Graham % (Auto) Eos % (Auto) Baso % (Auto) Immature Gran # (Auto) Neut # (Auto) Lymph # (Auto) Graham # (Auto) Eos # (Auto) Baso # (Auto) Specimen Type VENOUS VBG pH 7.26 L VBG pCO2 28 L VBG pO2 102 H VBG HCO3 14.7 L VBG O2 Saturation 99.2 H VBG Base Excess -13.1 L VBG Lactate 1.50 Sodium 143 Potassium 2.2 L* Chloride 113 H Carbon Dioxide 12 L Anion Gap 18 BUN 9 Creatinine 3.0 H Estimated GFR/1.73 m2 17 BUN/Creatinine Ratio 3 Glucose 383 H POC Glucose Calculated Osmolality 299 Calcium 8.8 Total Bilirubin 0.20 AST 12 ALT 6 L Alkaline Phosphatase 127 H Total Protein 7.1 Albumin 3.5 Globulin 4.0 Albumin/Globulin Ratio 1.0 Amylase Lipase 30 Urine Source Urine Color Urine Turbidity Urine pH Ur Specific [place] Urine Protein Ur Glucose (Stick) Ur Ketones (Stick) Urine Blood Urine Nitrite Urine Bilirubin Urobilinogen Dipstick Urine Leukocytes Acetone Level NEGATIVE 09/18/19 20:55 WBC RBC Hgb Hct MCV MCH MCHC RDW Std Deviation Plt Count MPV Immature Gran % (Auto) Neut % (Auto) Lymph % (Auto) Graham % (Auto) Eos % (Auto) Baso % (Auto) Immature Gran # (Auto) Neut # (Auto) Lymph # (Auto) Graham # (Auto) Eos # (Auto) Baso # (Auto) Specimen Type VBG pH VBG pCO2 VBG pO2 VBG HCO3 VBG O2 Saturation VBG Base Excess VBG Lactate Sodium Potassium Chloride Carbon Dioxide Anion Gap BUN Creatinine Estimated GFR/1.73 m2 BUN/Creatinine Ratio Glucose POC Glucose Calculated Osmolality Calcium Total Bilirubin AST ALT Alkaline Phosphatase Total Protein Albumin Globulin Albumin/Globulin Ratio Amylase Lipase Urine Source CATH Urine Color YELLOW Urine Turbidity TURBID Urine pH 5.5 Ur Specific [place] 1.028 Urine Protein 100 A Ur Glucose (Stick) NEGATIVE Ur Ketones (Stick) NEGATIVE Urine Blood TRACE A Urine Nitrite NEGATIVE Urine Bilirubin NEGATIVE Urobilinogen Dipstick NORMAL Urine Leukocytes LARGE A Acetone Level Orders Category Date Time Status Saline Loc DIRECTED Care 09/18/19 17:08 Active NPO Diet 09/18/19 17:08 Active AMYLASE [CHEM] Stat Lab 09/18/19 18:00 Completed CBC WITH ELECTRONIC DIFF [HEME] Stat Lab 09/18/19 18:00 Completed COMPREHENSIVE METABOLIC PANEL [CHEM] Stat Lab 09/18/19 18:00 Completed Ketone [ACETONE SERUM] [CHEM] Stat Lab 09/18/19 18:00 Completed LIPASE [CHEM] Stat Lab 09/18/19 18:00 Completed URINALYSIS W/POSS RFLX CULT [URINALYSIS] Stat Lab 09/18/19 20:55 Results VENOUS BLOOD GAS [RESP] Routine Lab 09/18/19 19:01 Completed 0.9% Sodium Chloride Inj [Ns] 1,000 ml Med 09/18/19 17:09 Discontinued IV 999 mls/hr 0.9% Sodium Chloride Inj [Ns] 1,000 ml Med 09/18/19 18:41 Discontinued IV 999 mls/hr Lidocaine 1% Pf [Xylocaine-Mpf 1%] 5 ml Med 09/18/19 17:50 Discontinued .ROUTE As directed Metoclopramide [Reglan] Med 09/18/19 17:09 Discontinued 10 mg IV NOW ONE Ns + KCl 40 Meq 1,000 ml Med 09/18/19 19:15 Active IV 125 mls/hr Prochlorperazine [Compazine] Med 09/18/19 21:20 Discontinued 10 mg IV NOW ONE EKG [EKG] Routine Ther 09/18/19 20:30 Ordered Result Diagrams: 09/18/19 18:00 09/18/19 18:00 <Charles Adrian - Last Filed: 09/18/19 22:11> Departure - Departure Date of Disposition Decision: 09/18/19 Time of Disposition Decision: 19:01 Certified Medical Emergency: Emergent <Adela Cormier - Last Filed: 09/18/19 19:00> - Critical Care Note This patient required my direct & personal management of CC.: No <Charles Adrian - Last Filed: 09/18/19 22:11> - Departure DIAGNOSIS: Dehydration, Gastroparesis diabeticorum Disposition: ADMITTED INPATIENT 09 Condition: Stable Referrals and Follow-Ups: None,PCP [Primary Care Provider] - Attestation - Physician/ GAUDENCIO Attestation Patient care was provided by Advanced Practice Provider:: No The physician spent face to face time with patient:: Yes Advanced Practice Provider documentation review:: Supervising physician onsite and consulted in the evaluation and care of this patient. The physician did have a face to face encounter with the patient. <Adela Cormier - Last Filed: 09/18/19 19:00> This chart was documented by the indicated scribe, (Alice Blair, Carleenibe) and accurately reflects the services I performed and decisions made by me, Adela Cormier MD, as attested by the provider's signature.
[2019-09-19] MEDS: REGLAN IV SCH ×2 (14:19→20:12)
[2019-09-19] MEDS: DILAUDID IV PRN ×2 (14:19→20:18)
[2019-09-19] MEDS: HUMALOG SUBQ SCH (21:17)
--- NOTE | 2019-09-20 00:27 | HISTORY AND PHYSICAL ---
CHIEF COMPLAINT: Nausea, vomiting, and no appetite. HISTORY OF PRESENT ILLNESS: This is a 44-year-old female well known to our service for multiple admissions for the same due to gastroparesis, intractable nausea, vomiting, and abdominal pain. She states that she is off all of her medications. She has known a esophageal stricture. She is status post a feeding tube, gastric pacemaker in the past. She is status post multiple failed balloon dilatations prompting her need for feeding tube. She was evaluated at [facility] in the last month, although at present she is lethargic. There is no family and she is unable to tell me what was discussed. They did state that the patient is taking none of her medications at this time. She is insulin-dependent diabetic and is usually on insulin. PAST MEDICAL HISTORY: Dysphagia with esophageal stricture status post multiple failed balloon dilatations, intractable nausea and vomiting, gastroparesis, anemia, chronic kidney disease, insulin-dependent diabetes mellitus. PAST SURGICAL HISTORY: Cholecystectomy, prior PEG tube placement which has been removed, gastric pacemaker and Port-A-Cath. SOCIAL HISTORY: She denies any alcohol or tobacco use. She did smoke marijuana in the past. ALLERGIES: No known drug allergies. HOME MEDICATIONS: It is stated that the patient is taking none of her medications at present. REVIEW OF SYSTEMS: Unable to obtain due to the patient being drowsy at present. PHYSICAL EXAMINATION: VITAL SIGNS: Blood pressure is 135/90 with heart rate of 90, respirations 18, temperature is 98.2 degrees oral with room air saturations 100%. HEENT: Head is normocephalic, atraumatic. Mucous membranes are dry. NECK: Supple with trachea midline. CARDIOVASCULAR: Regular rate and rhythm. S1 and S2 appreciated. No murmurs. PULMONARY: Breath sounds are clear with no increased work of breathing noted. GASTROINTESTINAL: Abdomen is soft, nontender, with bowel sounds in all 4 quadrants. NEUROLOGIC: She is lethargic. She does move extremities at random. She does withdraw from pain. SKIN: Warm and dry. LABORATORIES: WBC is 17 with hemoglobin 11.8, hematocrit 34, and platelets of 388,000. INR 0.98. Sodium is 143, potassium is 2.2, BUN 9, creatinine 3 with a glucose of 383. Acetone is negative. Blood cultures and urine culture are pending. Chest x-ray reveals shallow inspiration. No discrete pneumonia. ASSESSMENT AND PLAN: 1. Dehydration. 2. Acute kidney injury in the setting of chronic kidney disease. 3. Leukocytosis. 4. Hypokalemia. 5. Diabetes mellitus type 2 with hyperglycemia in a patient who is noncompliant. PLAN: 1. The patient has been admitted to the medical floor and placed on telemetry which we will continue. She will be NPO. We will restart Reglan 10 mg IV q.6 hours as the patient does benefit from this. We will give supplemental oxygen if needed. Check a CBC, CMP, and magnesium in the morning. She is being given IV fluids of normal saline with 40 of potassium at 125. We will continue this and we will trend her labs and replete electrolytes as appropriate. She will be placed on pattern blood glucose with sliding scale insulin. 2. Severe protein calorie malnutrition. At present, the patient is lethargic. Once the patient wakes then we can address her nutritional status. 3. Once the patient rouses or family members are present, we will discuss her stay at [facility] and maybe they can tell us a plan and they can be contacted. 4. Further treatments pending hospital course. Dictated by NELL Rubi for Caryl Moore MD cc: NELL Rubi
--- NOTE | 2019-09-20 01:01 | HISTORY AND PHYSICAL ---
ADDENDUM: Patient presented to the hospital stating that she had severe nausea, vomiting, lack of appetite. Stated that she needed IV pain medication and IV Phenergan. Thankfully, shortly afterwards she was observed to be eating a full meal. We are going to continue to observe her overnight and hopefully her nausea will continue to improve and she can be discharged home soon. cc: Jaime Vang MD
[2019-09-20] MEDS: REGLAN IV SCH ×4 (01:13→20:53)
[2019-09-20] MEDS: PHENERGAN IV PRN ×3 (01:22→17:52)
[2019-09-20] MEDS: DILAUDID IV PRN ×4 (01:22→22:32)
[2019-09-20 06:31] LABS: HEMATOCRIT 23.9 % (37.0-47.0); HEMOGLOBIN 7.6 g/dL (12.0-16.0); MCH 27.8 PG (27-31); MCHC 31.8 g/dL (33-37); MCV 87.5 FL (81-99); RBC 2.73 XMIL (4.2-5.4); RDW 17.9 % (11.5-14.5); WBC 15.77 X1000 (4.8-10.8)
[2019-09-20] MEDS: HUMALOG SUBQ SCH ×3 (06:38→20:47)
[2019-09-20] MEDS: NS + KCL 40 MEQ 1,000 ML IV SCH (06:52)
[2019-09-20 06:55] LABS: AGAP 6; ALBUMIN 2.8 g/dL (3.5-5.0); ALKALINE PHOSPHATASE 87 U/L (32-104); BUN 8 mg/dL (8-22); CALCIUM 8.1 mg/dL (8.8-10.2); CHLORIDE 129 mmol/L (98-107); COSMO 295; CREATININE 1.7 mg/dL (0.5-0.9); ESTIMATED GFR 32; GLUCOSE 144 mg/dL (70-104); GOT 8 U/L (10-30); GPT < 5 U/L (10-36); POTASSIUM 4.9 mmol/L (3.5-5.1); SODIUM 148 mmol/L (136-145); TCO2 13 mmol/L (25-35); TOTAL PROTEIN 5.2 g/dL (6.3-8.3)
[2019-09-20] MEDS: ZOSYN 3.375 GM in NS 50 ML IV SCH ×3 (09:24→20:52)
[2019-09-20] MEDS ORDERED: ZOFRAN IV PRN (12:32)
[2019-09-20] MEDS: SODIUM CHLORIDE 0.9% INJ PRN (17:52)
--- NOTE | 2019-09-21 00:12 | PROGRESS NOTE ---
DATE: 09/20/2019 SUBJECTIVE: This morning patient has no complaints. States that her nausea is improved. She has agreed to try and advance her diet to liquids. PHYSICAL EXAMINATION: Vital Signs: Reviewed. General: She is awake, alert. She is in no distress. Is somewhat nontoxic in appearance. HEENT: Normocephalic. Neck: Supple. If she is successful, we can advance to solids. ASSESSMENT: 1. Dehydration. 2. Acute kidney injury. 3. Leukocytosis. 4. Hypokalemia. 5. Diabetes. PLAN: Continue patient in the hospital. We have written this morning to advance her diet, but unfortunately this may not have been noticed until this afternoon. Regardless, we are going to attempt to advance the diet and hopefully home soon. cc: Jaime Vang MD
[2019-09-21] MEDS: ZOSYN 3.375 GM in NS 50 ML IV SCH ×4 (02:24→23:20)
[2019-09-21] MEDS: REGLAN IV SCH ×4 (02:25→23:21)
[2019-09-21] MEDS: PHENERGAN IV PRN ×4 (05:18→23:21)
[2019-09-21] MEDS: HUMALOG SUBQ SCH ×3 (06:26→16:33)
[2019-09-21] MEDS: DILAUDID IV PRN ×5 (07:10→23:20)
[2019-09-21] MEDS: SODIUM CHLORIDE 0.9% INJ PRN ×2 (14:15→18:27)
--- NOTE | 2019-09-21 17:09 | PROGRESS NOTE ---
DATE: 09/21/2019 SUBJECTIVE: Patient notes that she was able to start drinking a little bit. Still not feeling quite back to her normal. PHYSICAL EXAMINATION: Vital Signs: Reviewed temp 98 degrees, pulse 99, respiratory rate 18, BP 101/75. General: Patient is in no current respiratory distress. Very pleasant to talk with. HEENT: Normocephalic. Neck: Supple. Cardiovascular: Regular rate. Chest: Clear. Abdomen: Soft. Extremities: Moves all extremities. ASSESSMENT: 1. Escherichia-coli urinary tract infection resistant to Levaquin. Otherwise pansensitive. 2. Dehydration resolved. 3. Leukocytosis. 4. Diabetic gastroparesis with chronic poorly controlled diabetes and esophageal stricture, failed multiple balloon dilatations. PLAN: We are going to continue patient in the hospital. Continue antibiotics. Continue clear liquids until she is feeling better. cc: Jaime Vang MD
[2019-09-22] MEDS: HUMALOG SUBQ SCH ×2 (00:53→06:08)
[2019-09-22] MEDS: REGLAN IV SCH ×4 (03:21→12:36)
[2019-09-22] MEDS: DILAUDID IV PRN ×2 (06:21→10:17)
[2019-09-22] MEDS: ZOSYN 3.375 GM in NS 50 ML IV SCH ×2 (06:23→12:35)
[2019-09-22] MEDS: HUMALOG (PARKWAY) SUBQ SCH ×2 (07:32→11:26)
[2019-09-22] MEDS: SODIUM CHLORIDE 0.9% INJ PRN (10:17)
[2019-09-22] MEDS: PHENERGAN IV PRN (10:17)
[2019-09-22 13:04] VITALS: BP 113/70
--- NOTE | 2019-09-22 17:22 | DISCHARGE SUMMARY ---
ADMISSION DATE: 09/18/2019 DISCHARGE DATE: 09/22/2019 DISCHARGE DIAGNOSES: 1. Dehydration, resolved. 2. Escherichia coli urinary tract infection resistant to Levaquin. She was treated while in the hospital with Zosyn. 3. Acute on chronic kidney injury, resolved. 4. Leukocytosis, resolved. 5. Hypokalemia, resolved. 6. Diabetes type 2 with hyperglycemia. 7. Diabetic gastroparesis causing frequent episodes of poor intake. CONSULTATIONS: None. PROCEDURES: None. BRIEF HOSPITAL COURSE: The patient is a 44-year-old female who unfortunately has been admitted to the hospital several times previously with similar issues. She has had multiple procedures previously including a PEG tube which has since been removed. She has had a gastric pacemaker. She presented to the hospital with nausea, vomiting. Thankfully, over the next few days, her stomach did improve. She was able to start drinking. On the date of discharge, she actually ate a full GI soft breakfast. She was diagnosed with an E coli urinary tract infection, was placed on antibiotics without any difficulty. On discharge, she is awake, alert, pleasant. DISPOSITION: Patient will be discharged home. Discussed with her that she needs to continue her home medications, continue to follow up with her GI doctor regarding her gastroparesis, continue to follow her blood sugars very closely, continue to avoid marijuana. No other changes made on her home medications on discharge. Greater 30 minutes were spent in total care. cc: Jaime Vang MD
== END 2019-09-22 14:02 | disposition home or self-care (01) | DRG 73 ==
LOC: P.ED 16:25 → P.MEDSURG 16:25 → UNDODISOB 09-22 14:02
PROVIDERS: ATTEND Family Medicine

== ENCOUNTER 2019-10-17 15:12 | Inpatient (IN) ==
[2019-10-17] MEDS ORDERED: ZOFRAN IV ONE (15:56)
[2019-10-17] MEDS ORDERED: NS 1,000 ML IV ONE (15:56)
[2019-10-17 17:18] LABS: BASO# 0.03 X1000 (0.0-0.2); BASO% 0.4 % (0.0-0.8); EOS# 0.04 X1000 (0.0-0.7); EOS% 0.5 % (0.0-10.0); HEMATOCRIT 35.7 % (37.0-47.0); HEMOGLOBIN 11.7 g/dL (12.0-16.0); IMM GRAN# 0.01 X1000 (0.0-0.04); IMM GRAN% 0.1 % (0.0-0.5); LYMPH% 21.9 % (20.5-51.1); MCH 27.2 PG (27-31); MCHC 32.8 g/dL (33-37); MONO# 0.57 X1000 (0.11-0.59); MONO% 6.9 % (1.7-9.3); MPV 12.1 FL (7.4-10.4); NEUT# 5.78 X1000 (1.4-6.5); NEUT% 70.2 % (42.2-75.2); PLT 488 X1000 (130-400); RDW 16.1 % (11.5-14.5); WBC 8.23 X1000 (4.8-10.8)
[2019-10-17 17:36] LABS: ALBUMIN 4.2 g/dL (3.5-5.0); CREATININE 5.5 mg/dL (0.5-0.9); POTASSIUM 2.7 mmol/L (3.5-5.1); TOTAL BILIRUBIN 0.3 mg/dL (0.20-1.00); TOTAL PROTEIN 8.1 g/dL (6.3-8.3)
[2019-10-17 17:39] LABS: URINE SOURCE CLEAN CATCH
[2019-10-17 17:46] LABS: BILIRUBIN URINE NEGATIVE (NEGATIVE); BLOOD URINE NEGATIVE (NEGATIVE); COLOR YELLOW; GLUCOSE URINE NEGATIVE (NEGATIVE); KETONE URINE NEGATIVE (NEGATIVE); LEUKOCYTES URINE SMALL (NEGATIVE); NITRITE URINE NEGATIVE (NEGATIVE); PH URINE 5.5; PROTEIN URINE 100 mg/dL (NEGATIVE); SP GRAVITY URINE 1.022; TURBIDITY URINE HAZY (CLEAR); UROBILINOGEN URINE 2 mg/dL (NORMAL)
[2019-10-17 17:47] LABS: UR EPITHELIAL CELLS >10 /HPF (<10); URINE BACTERIA NEGATIVE /HPF; URINE RBC <10 /HPF (<10); URINE WBC TNTC /HPF (<10)
[2019-10-17] MEDS ORDERED: POTASSIUM CHLORIDE 20 MEQ/SWI 20 MEQ/100 ML IVPB IV ONE (18:02)
[2019-10-17] MEDS ORDERED: DILAUDID IV ONE (18:29)
--- NOTE | 2019-10-17 18:30 | PROVIDER DOCUMENTATION ---
This chart was entered by Sue Ly Scribe, acting as scribe for Janet Glaser MD. HPI-Abdominal Pain/GI Problem - General Chief Complaint: Nausea/Vomiting Stated Complaint: n/v Time Seen by Provider: 10/17/19 15:55 Source: patient Allergies/Adverse Reactions: Patient Allergies Allergy/AdvReac Type Severity Reaction Status Date / Time No Known Allergies Allergy Verified 08/15/19 14:06 Home Medications: Home Medication List Medication Instructions Recorded Confirmed Last Taken Type NK [No Home Medications] 09/18/19 09/18/19 Unknown History - History of Present Illness-ABD Nature of Presenting Problems: 44yof presents to ED cc nausea, vomiting, difficulty swallowing and decreased urine for 2 days. Pt reports last BM was 5 days ago. Pt denies F/C/SOB/CABAN. Pt has hx of DM, HTN and gastroparesis. Pt has abdominal pacemaker. Abdominal Pain Onset Location: reports: generalized abdomen Quality of Pain: reports: aching Severity in ED: reports: mild, moderate Onset/Duration: reports: 2 days ago Timing: reports: still present Activities at Onset: reports: light activity Exposure to sick contacts?: No Modifying Factors: improves with: nothing Associated Symptoms: reports: genitourinary problems, nausea, vomiting Last BM: 5 days ago Dark Stools Present?: reports: none noticed Rectal Bleeding: reports: none Rectal Pain: reports: none Emesis Description: reports: clear Bruising or Bleeding Gums?: No Similar Symptoms Previously?: Yes Recently seen or treated by another doctor?: Yes (seen in ED 09/20/2019) Review of Systems - Adult - REVIEW OF SYSTEMS - ADULT Constitutional: reports: see HPI. denies: chills, fever, fatique Eyes: reports: no symptoms reported Ears, Nose, Mouth & Throat: reports: no symptoms reported Cardiovascular: reports: no symptoms reported Respiratory: reports: see HPI. denies: cough, shortness of breath Gastrointestinal: reports: see HPI, abdominal pain, nausea, vomiting. denies: diarrhea Genitourinary: reports: see HPI, urinary retention. denies: dysuria Musculoskeletal: reports: no symptoms reported Integumentary: reports: no symptoms reported Neurological: reports: see HPI. denies: headache/migraines Psychiatric: reports: no symptoms reported Endocrine: reports: no symptoms reported Hematologic/Lymphatic: reports: no symptoms reported Allergic/Immunologic: reports: no symptoms reported All Other Systems: Reviewed and Negative Past History - Adult - PAST MEDICAL HISTORY-ADULT Review of Records: reports: Old Records Reviewed, Nursing Assessment Review, Medications Reviewed, Social history reviewed & non-contributory. Major Childhood Illnesses: reports: denies history Cardiovascular: reports: HTN, hyperlipidemia Respiratory: reports: denies history Gastrointestinal: reports: GERD (with esophagitis and stenosis), GI bleed, ulcer , other (diabetic gastroparesis, erosive gastritis and esophagitis; gastric pacemaker) Obstetrical/Gynecological: reports: denies history Genitourinary: reports: kidney disease, other (ammenorrhea for 1 year) Musculoskeletal: reports: denies history Neurological: reports: other (DM neuropathy) Psychiatric: reports: anxiety, depression Endocrine/Immune: reports: anemia, Diabetes Other Conditions: reports: denies history Additional History: frequent ER visits - PRIOR SURGERIES/PROCEDURES Surgical/Procedure History: reports: cholecystectomy, indwelling device (Portacath), other (gastric stimulator) - IMMUNIZATION STATUS Childhood Immunizations: See Nurse Assessment Flu Vaccine: See Nurse Assessment - FAMILY HISTORY Family History: reviewed, not pertinent Physical Exam-General - PHYSICAL EXAM-ADULT Initial Vital Signs Reviewed: Yes - CONSTITUTIONAL General Appearance: appears well, alert, no apparent distress, thin. negative: anxious, combative - EYES Eyes: PERRL/EOMI, pink conjunctivae. negative: photophobia - HEAD, EARS, NOSE, MOUTH & THROAT HENMT: normocephalic/atraumatic, moist mucous membranes. negative: angioedema - NECK Neck: supple, normal inspection - RESPIRATORY Respiratory: chest non-tender, lungs clear, normal breath sounds, no pleuratic chest pain, no respiratory distress, no accessory muscle use. negative: crackles, rales, rhonchi, stridor, wheezing - CARDIOVASCULAR Cardiovascular: normal peripheral pulses, regular rate, rhythm, no edema, no gallop, no JVD, no murmur. negative: bradycardia, tachycardia - GASTROINTESTINAL (ABDOMEN) Abdominal Exam: normal bowel sounds, soft, no organomegaly, no pulsatile mass, tenderness. negative: distended, guarding, rigid, rebound - MUSCULOSKELETAL Extremity: normal inspection. negative: deformity - SKIN Integumentary: normal turgor, warm/dry, pallor. negative: diaphoresis, jaundice, rash - PSYCHIATRIC Psych/Mental Status: normal mood/affect, oriented x 3. negative: anxious, disheveled Progress - PLAN OF CARE/RESULTS Progress/Plan/Lab Results: Vital Signs - 8 hr 10/17/19 15:31 Temperature 98.1 F Pulse Rate 112 H Respiratory Rate 19 Blood Pressure 90/68 O2 Sat by Pulse Oximetry 98 Laboratory Results - last 24 hr 10/17/19 15:37 POC Glucose 237 H D Orders Category Date Time Status Cardiac Monitoring DIRECTED Care 10/17/19 15:46 Active Finger Stick Blood Sugar (ED) DIRECTED Care 10/17/19 15:46 Active AMYLASE [CHEM] Stat Lab 10/17/19 15:46 Ordered CBC WITH DIFF [HEME] Stat Lab 10/17/19 15:46 Ordered COMPREHENSIVE METABOLIC PANEL [CHEM] Stat Lab 10/17/19 15:46 Uncollected LIPASE [CHEM] Stat Lab 10/17/19 15:46 Uncollected URINALYSIS W/POSS RFLX CULT [URINALYSIS] Stat Lab 10/17/19 15:49 Uncollected Result Diagrams: 10/17/19 16:46 10/17/19 16:46 - CONSULTS/PCP/HOSPITALIST Notification #1 *Consult/PCP/Hospitalist*: d/w Nayeli for hospitalist Time Discussed: 18:30 Consult Disposition: Admit Departure - Departure Date of Disposition Decision: 10/17/19 Time of Disposition Decision: 18:29 DIAGNOSIS: Dehydration, Volume depletion, Hypokalemia, Nausea & vomiting Disposition: ADMITTED INPATIENT 09 Certified Medical Emergency: Emergent Condition: Stable - Critical Care Note This patient required my direct & personal management of CC.: No Attestation - Physician/ GAUDENCIO Attestation Patient care was provided by Advanced Practice Provider:: No The physician spent face to face time with patient:: Yes Advanced Practice Provider documentation review:: Supervising physician onsite and consulted in the evaluation and care of this patient. The physician did have a face to face encounter with the patient. This chart was documented by the indicated scribe, (Sue Ly Scribe) and accurately reflects the services I performed and decisions made by me, Janet Glaser MD, as attested by the provider's signature.
[2019-10-17] MEDS ORDERED: ZOFRAN IV PRN (19:43)
[2019-10-17] MEDS ORDERED: TYLENOL PO PRN (19:43)
[2019-10-17] MEDS ORDERED: NS 1,000 ML IV SCH (19:45)
[2019-10-17] MEDS: PHENERGAN IV PRN (21:37)
[2019-10-17] MEDS: NS 1,000 ML IV SCH (21:37)
[2019-10-17] MEDS: SODIUM CHLORIDE 0.9% INJ PRN (21:37)
[2019-10-17] MEDS: POTASSIUM CHLORIDE 20 MEQ/SWI 20 MEQ/100 ML IVPB IV SCH (23:43)
[2019-10-18] MEDS: DILAUDID IV PRN ×3 (01:00→15:47)
[2019-10-18] MEDS: POTASSIUM CHLORIDE 20 MEQ/SWI 20 MEQ/100 ML IVPB IV SCH (01:00)
[2019-10-18] MEDS: NS 1,000 ML IV SCH (01:47)
[2019-10-18] MEDS ORDERED: NS 1,000 ML IV SCH ×2 (04:00→08:10)
[2019-10-18] MEDS: SODIUM CHLORIDE 0.9% INJ PRN ×3 (05:58→19:47)
[2019-10-18] MEDS: PHENERGAN IV PRN ×3 (05:58→19:47)
[2019-10-18 07:15] LABS: HEMATOCRIT 27.3 % (37.0-47.0); HEMOGLOBIN 8.9 g/dL (12.0-16.0); MCH 27.7 PG (27-31); MCHC 32.6 g/dL (33-37); MPV 11.2 FL (7.4-10.4); RBC 3.21 XMIL (4.2-5.4); WBC 7.54 X1000 (4.8-10.8)
[2019-10-18 07:44] LABS: AGAP 17; ALBUMIN 3.2 g/dL (3.5-5.0); ALKALINE PHOSPHATASE 92 U/L (32-104); BUN 24 mg/dL (8-22); CHLORIDE 118 mmol/L (98-107); COSMO 294; CREATININE 4.8 mg/dL (0.5-0.9); ESTIMATED GFR 10; GLUCOSE 96 mg/dL (70-104); GOT 11 U/L (10-30); GPT < 5 U/L (10-36); MAGNESIUM 2.5 mg/dL (1.5-2.7); POTASSIUM 3.4 mmol/L (3.5-5.1); SODIUM 146 mmol/L (136-145); TCO2 11 mmol/L (25-35)
[2019-10-18] MEDS: REGLAN IV SCH ×2 (12:53→19:47)
--- NOTE | 2019-10-18 13:21 | Diag Imaging Result Doc PS360 ---
EXAM: KUB ABDOMEN HISTORY: COnstipation, vomiting TECHNIQUE: Single view COMPARISON: 05/23/2019 FINDINGS: The gallbladder has been removed. There is an intrauterine device in the pelvis angled toward the left similar to the prior exam. Neurostimulator device in the right abdomen. This is unchanged. No bowel obstruction. No organomegaly. IMPRESSION: No significant constipation. Electronically signed by Hebert Soto 10/18/2019 1:19 PM
[2019-10-18] MEDS: NS + KCL 40 MEQ 1,000 ML IV SCH ×2 (13:42→21:18)
--- NOTE | 2019-10-18 14:04 | PROGRESS NOTE ---
DATE: 10/18/2019 SUBJECTIVE: Patient notes that she is feeling a little bit better. She has had no more vomiting overnight but also has not drank anything. Denies any fevers or chills. Still having diffuse abdominal pain. PHYSICAL: Vital Signs: Reviewed. She is afebrile. Blood pressures are improved and stable. Heart rate 90s. General: Patient is ill-appearing although better than last night. HEENT: Normocephalic. Neck: Supple. Cardiovascular: Regular rate. Chest: Clear. Abdomen: Soft, diffusely tender. Extremities: Moves all extremities. Neuro: No changes. ASSESSMENT: 1. Hypokalemia resolved. 2. Hypertension improved. 3. Nausea, vomiting secondary to gastroparesis, improved. 4. History of hypertension. 5. Others. PLAN: We are going to continue patient in the hospital. Her potassium is better. Blood pressures are better. Creatinine is improving although she still has acute renal failure. We are going to continue to follow, further orders as needed, continue fluids. cc: Jaime Vang MD
--- NOTE | 2019-10-18 16:55 | HISTORY AND PHYSICAL ---
NOTE: Patient seen and examined by myself while in the ER. History and physical dictated the following morning. CHIEF COMPLAINT: Nausea/vomiting. HISTORY OF PRESENT ILLNESS: The patient is a 44-year-old female who unfortunately has had multiple previous admissions due to nausea, vomiting and difficulty swallowing. The patient notes she has had a decreased oral intake as well as decreased urine output for the past couple of days. Notes that she has had several episodes of vomiting. She does have chronic gastroparesis. ALLERGIES: No known drug allergies. MEDICATIONS: No current medications. REVIEW OF SYSTEMS: The patient notes she has been constipated for the past 5 days. She has not really eaten or drunk anything for the past 3 days, although she is asking when she could have something to drink. She has been nauseated and vomiting. Denies hematemesis, hematochezia, melena, or hemoptysis. Denies any fevers, chills, cough, or congestion. States she has been tired and fatigued with muscle aches. PAST MEDICAL HISTORY: Diabetes with diabetic gastroparesis, hypertension, hyperlipidemia, esophagitis with stenosis, history of GI bleeding and peptic ulcer disease, erosive gastritis. She has had a gastric pacemaker in the past. She has had amenorrhea for the past year. Has diabetic neuropathy and anemia. PAST SURGICAL HISTORY: Cholecystectomy, indwelling Port-A-Cath, as well as a gastric stimulator. FAMILY HISTORY: Noncontributory. SOCIAL HISTORY: Patient denies smoking, drinking, or current illicit drug use. PHYSICAL EXAMINATION: VITAL SIGNS: Reviewed. Temperature 98, pulse 119, respiratory rate 19, BP 90/50. GENERAL: The patient is somewhat ill appearing. She is awake and alert. She is in no respiratory distress. HEENT: Normocephalic. NECK: Supple. CARDIOVASCULAR: Regular rate. CHEST: Clear. ABDOMEN: Soft. EXTREMITIES: Moves all extremities. ASSESSMENT: 1. Nausea and vomiting. 2. Abdominal pain. 3. Gastroparesis secondary to diabetes. 4. Acute renal failure. Creatinine is 5.6, with her baseline typically around 1 to 2. 5. Volume depletion. 6. Hypokalemia. Potassium 2.7. 7. Presumed urinary tract infection. PLAN: We are going to continue the patient in the hospital on IV fluids. We are going to give her a fluid bolus and a banana bag. Follow her kidney function. Advance her diet as tolerated. Place her on sliding-scale insulin, replace her potassium, and recheck in the a.m.. cc: Jaime Vang MD
--- NOTE | 2019-10-18 20:12 | HISTORY AND PHYSICAL ---
CHIEF COMPLAINT: Nausea and vomiting. HISTORY OF PRESENT ILLNESS: This is a 44-year-old female well known to our service for multiple admissions for the same. She presents to the emergency room complaining of persistent nausea, vomiting with dysphagia and decreased urine output for 2 days. She stated her last bowel movement was 5 days prior. She denied any black or bloody vomitus or stools. She did say that up until the last 2 days she has been able to eat soft foods at intervals. PAST MEDICAL HISTORY: 1. Diabetes mellitus. 2. Dysphagia with esophageal stricture, status post multiple failed balloon dilatations. 3. Intractable nausea and vomiting. 4. Gastroparesis. 5. Anemia. 6. Chronic kidney disease. PAST SURGICAL HISTORY: Cholecystectomy, prior PEG tube placement with removal, gastric pacemaker and Port-A-Cath. SOCIAL HISTORY: She denies alcohol, tobacco, or illicit drug use. ALLERGIES: No known drug allergies. HOME MEDICATIONS: A list will be obtained by the nursing staff and once verified will review and restart as appropriate. FAMILY HISTORY: Positive for diabetes and hypertension. REVIEW OF SYSTEMS: Unable to obtain as the patient has just had Dilaudid and she is drowsy. PHYSICAL EXAMINATION: GENERAL: This is a 44-year-old female who is lying on the stretcher in the emergency room, sedated after having pain medication. HEENT: Head is normocephalic, atraumatic. Mucous membranes are dry. NECK: Supple with trachea midline. CARDIOVASCULAR: Regular rate and rhythm. S1 and S2 are appreciated. She has no lower extremity edema. Peripheral pulses are palpable x4 extremities. Calves are nontender bilateral. PULMONARY: Breath sounds are clear but diminished throughout with chest rises and falls symmetric to respiration. GASTROINTESTINAL: Abdomen is soft, nontender, nondistended. Bowel sounds in all 4 quadrants. SKIN: Warm and dry. LABS: WBC is 8.2 with hemoglobin 11.7, hematocrit 35.7, and platelets of 488,000. Sodium is 140, potassium 2.7, BUN 27, creatinine 5.5 with a glucose of 225. Her CO2 is 12. Amylase 284, lipase 51. ASSESSMENT AND PLAN: 1. Hypokalemia. 2. Nausea and vomiting with dysphagia. 3. Dehydration. 4. History of dysphagia with esophageal stricture with status post multiple failed balloon dilatations. 5. Diabetes mellitus type 2 with hyperglycemia and noncompliant patient. 6. Diabetic gastroparesis. PLAN: The patient will be admitted to the medical-surgical floor. She will be placed on telemetry. She will be diet as tolerated. We will pattern blood glucose with sliding scale insulin. Start Reglan 10 mg IV q.6 hours as this does help the patient as in the past. We will give Phenergan p.r.n., give Dilaudid 0.5 q.3 hours p.r.n. pain. Plan was discussed with Dr. Vang. Further treatments pending hospital course. Dictated by NELL Rubi for Jaime Vang MD cc: NELL Rubi MD
[2019-10-19] MEDS: REGLAN IV SCH ×5 (01:27→18:15)
[2019-10-19] MEDS: PHENERGAN IV PRN ×3 (05:10→19:55)
[2019-10-19] MEDS: NS + KCL 40 MEQ 1,000 ML IV SCH (05:11)
[2019-10-19 06:43] LABS: HEMATOCRIT 27.3 % (37.0-47.0); HEMOGLOBIN 8.7 g/dL (12.0-16.0); MCHC 31.9 g/dL (33-37); MCV 87.8 FL (81-99); MPV 11.3 FL (7.4-10.4); RBC 3.11 XMIL (4.2-5.4); RDW 16.7 % (11.5-14.5); WBC 5.71 X1000 (4.8-10.8)
[2019-10-19] MEDS: DILAUDID IV PRN ×3 (06:53→19:55)
[2019-10-19 07:11] LABS: ALBUMIN 2.8 g/dL (3.5-5.0); CALCIUM 7.7 mg/dL (8.8-10.2); CREATININE 3.7 mg/dL (0.5-0.9); POTASSIUM 4.6 mmol/L (3.5-5.1); TOTAL BILIRUBIN 0.3 mg/dL (0.20-1.00); TOTAL PROTEIN 5.7 g/dL (6.3-8.3)
[2019-10-19] MEDS ORDERED: AMBIEN PO PRN (08:44)
[2019-10-19] MEDS: D5 1/2 NS 1,000 ML IV SCH ×2 (11:01→19:56)
[2019-10-19] MEDS: SODIUM CHLORIDE 0.9% INJ PRN (12:59)
--- NOTE | 2019-10-20 01:07 | PROGRESS NOTE ---
DATE: 10/19/2019 SUBJECTIVE: Patient notes she is still having difficulty swallowing. Denies any fevers, or chills or abdominal pain. PHYSICAL EXAMINATION: Vital Signs: She is afebrile. Vital signs reviewed and stable. Blood pressure is stable. Heart rate 80s. General: Patient is awake, pleasant. She is in no distress although she is ill appearing. HEENT: Normocephalic. Neck: Supple. Cardiovascular: Regular rate. Chest: Clear and unlabored. Abdomen: Soft, diffusely tender. No masses. No hepatosplenomegaly. Extremities: Moves all extremities. Neurologic: No focal changes. ASSESSMENT: 1. Nausea and vomiting. 2. Abdominal pain. 3. Diabetes with gastroparesis. 4. Acute renal failure. Creatinine is 5.6 with a baseline around 2. Currently, she is down with a BUN of 18 and a creatinine of 3.7. 5. Hypokalemia, resolved. 6. Anemia of chronic disease. Hemoglobin and hematocrit were hemoconcentrated at 11 and 35, currently is 8 and 27. PLAN: We are going to continue patient in the hospital, continue fluids and we will follow. cc: Jaime Vang MD
[2019-10-20] MEDS: DILAUDID IV PRN ×4 (01:21→18:27)
[2019-10-20] MEDS: REGLAN IV SCH ×4 (01:21→18:28)
[2019-10-20] MEDS: PHENERGAN IV PRN ×4 (01:22→20:33)
[2019-10-20] MEDS: D5 1/2 NS 1,000 ML IV SCH ×3 (08:01→19:43)
[2019-10-20] MEDS: SODIUM CHLORIDE 0.9% INJ PRN ×3 (08:04→20:33)
[2019-10-20 10:29] LABS: BASO# 0.02 X1000 (0.0-0.2); BASO% 0.3 % (0.0-0.8); EOS# 0.07 X1000 (0.0-0.7); EOS% 1.1 % (0.0-10.0); HEMATOCRIT 28.9 % (37.0-47.0); HEMOGLOBIN 8.9 g/dL (12.0-16.0); IMM GRAN# 0.01 X1000 (0.0-0.04); IMM GRAN% 0.2 % (0.0-0.5); LYMPH# 1.44 X1000 (1.2-3.4); LYMPH% 22.4 % (20.5-51.1); MCH 27.6 PG (27-31); MCHC 30.8 g/dL (33-37); MCV 89.5 FL (81-99); MONO% 7.8 % (1.7-9.3); MPV 11.8 FL (7.4-10.4); NEUT# 4.38 X1000 (1.4-6.5); NEUT% 68.2 % (42.2-75.2); PLT 316 X1000 (130-400); RBC 3.23 XMIL (4.2-5.4); RDW 17.5 % (11.5-14.5); WBC 6.42 X1000 (4.8-10.8)
[2019-10-20 10:52] LABS: ALBUMIN 2.9 g/dL (3.5-5.0); CREATININE 3.5 mg/dL (0.5-0.9); MAGNESIUM 1.9 mg/dL (1.5-2.7); POTASSIUM 3.7 mmol/L (3.5-5.1); TOTAL BILIRUBIN 0.2 mg/dL (0.20-1.00); TOTAL PROTEIN 5.5 g/dL (6.3-8.3)
[2019-10-20] MEDS ORDERED: SODIUM BICARBONATE 8.4% 150 MEQ in D5W 1,000 ML IV SCH (12:00)
[2019-10-20] MEDS ORDERED: TYLENOL PO PRN (17:19)
[2019-10-20] MEDS ORDERED: AMBIEN PO PRN (17:20)
[2019-10-20] MEDS ORDERED: ZOFRAN IV PRN (17:20)
[2019-10-20] MEDS ORDERED: NS 1,000 ML IV SCH (18:00)
[2019-10-20] MEDS ORDERED: D5 1/2 NS 1,000 ML IV SCH (18:00)
[2019-10-20] MEDS: PROTONIX IV SCH (21:23)
[2019-10-20] MEDS: SODIUM CHLORIDE 0.9% INJ SCH (21:24)
--- NOTE | 2019-10-20 21:47 | PROGRESS NOTE ---
DATE: 10/20/2019 SUBJECTIVE: Patient notes that she is still retching, still unable to swallow, still having difficulty drinking anything. PHYSICAL EXAMINATION: Vital signs: Temperature 98 degrees, She is afebrile. Blood pressure is stable. General: Patient is in no current respiratory distress. She is lying in the bed. She is pleasant. HEENT: Normocephalic. Neck: Supple. Cardiovascular: Regular rate. Chest: Clear. Abdomen: Soft, diffusely tender. Extremities: Moves all extremities. No edema. Neurologic: She is awake, alert and oriented. ASSESSMENT: 1. Hypokalemia, resolved. 2. Acute on chronic renal failure. Creatinine is 5.5. This has decreased to 3.7 with fluids. We are going to transfer her to [facility] for Nephrology's assistance. We currently have her on BiPAP. Dusty to have Nephrology assist in her care. She currently is on a 1 L sodium bicarb drip to see if this will help her kidney function. 3. Anemia, stable. 4. Gastroparesis secondary to diabetes with frequent retching. PLAN: We are going to transfer her to [facility] and ask Gastroenterology and Nephrology to assist in her care. We will continue fluids and we will follow. cc: Jaime Vang MD
[2019-10-21] MEDS: REGLAN IV SCH ×4 (00:12→18:00)
[2019-10-21] MEDS: D5 1/2 NS 1,000 ML IV SCH ×4 (00:12→20:38)
[2019-10-21] MEDS: DILAUDID IV PRN ×5 (00:31→20:37)
[2019-10-21] MEDS ORDERED: NS 1,000 ML IV SCH (01:30)
[2019-10-21] MEDS: PHENERGAN IV PRN ×3 (09:39→20:16)
[2019-10-21 09:42] LABS: HEMATOCRIT 24.5 % (37.0-47.0); HEMOGLOBIN 7.7 g/dL (12.0-16.0); MCH 27.6 PG (27-31); MCHC 31.4 g/dL (33-37); MCV 87.8 FL (81-99); MPV 11.8 FL (7.4-10.4); RBC 2.79 XMIL (4.2-5.4); RDW 17.4 % (11.5-14.5); WBC 7.85 X1000 (4.8-10.8)
[2019-10-21] MEDS: PROTONIX IV SCH ×2 (09:44→20:15)
[2019-10-21 10:18] LABS: ALBUMIN 2.6 g/dL (3.5-5.0); CALCIUM 7.2 mg/dL (8.8-10.2); CREATININE 3.3 mg/dL (0.5-0.9); PHOSPHORUS 2.2 mg/dL (2.7-4.5); POTASSIUM 3.2 mmol/L (3.5-5.1)
--- NOTE | 2019-10-21 11:29 | NEPHROLOGY CONSULTATION ---
DATE: 10/21/2019 REASON FOR ADMISSION: Nausea, vomiting, acute kidney injury, hypokalemia. REASON FOR CONSULTATION: Acute kidney injury, assist with management. CONSULTING PHYSICIAN: Dr. Vang. HISTORY OF PRESENT ILLNESS: This is a 44-year-old female with a past medical history of diabetes with gastroparesis and dysphagia secondary to esophageal stricture, status post multiple balloon dilations that have failed. She has intractable nausea, vomiting, history of anemia, and chronic kidney disease. She has a baseline creatinine of around 1.5. The patient came into the emergency room secondary to her nausea and vomiting. It had been worse for the last 3 days. She had decreased output for the last 2 days prior to admission. In the ER, she was initially found with a creatinine of 5.5, CO2 of 12, a potassium of 2.7, and a sodium of 140. She has been treated with IV fluids, sodium bicarbonate. She has been admitted to the hospital for further workup and treatment, and then transferred over to [facility] for Nephrology and GI consultation and evaluations. Today when I see her, she continues with some abdominal pain. She states that she feels like she just wants to sleep "all the time," but she has been able to ambulate, and her urine output has picked up modestly in the last 24 hours. PAST MEDICAL HISTORY: As noted above. PAST SURGICAL HISTORY: Again, multiple esophageal balloon dilations, cholecystectomy, she has had a PEG tube placement and removal, she has had a gastric pacemaker, and a Port-A-Cath. ALLERGIES: None. HOME MEDICATIONS: Ambien. Her home medications do not appear to be completed in the computer, or verified. FAMILY HISTORY: Diabetes, hypertension. SOCIAL HISTORY: No ETOH, tobacco, or illicit drug use. REVIEW OF SYSTEMS: Continues with abdominal pain. PHYSICAL EXAMINATION: Vital Signs: Temperature 98.5 degrees, pulse 106, respiratory rate 16, blood pressure 124/76. Intake 2 L, output 600 mL. General: This is a middle- aged female, resting in bed. She is awake and alert. She does not appear in distress. HEENT: Normocephalic, atraumatic. Conjunctivae are pink. Her oral mucosa is moist. Neck: Supple. There is no JVD in a reclined position. Cardiovascular: Regular rate and rhythm without murmur or gallop noted. Pulmonary: She is clear bilaterally. She has no increased work of breathing. Abdomen: Soft with mild diffuse tenderness. : Voiding. Extremities: No edema, clubbing, cyanosis. Integumentary: Skin is warm and dry. Neurologic: Nonfocal. LABORATORY DATA: Her creatinine yesterday was 3.5. Her CO2 yesterday was 12. Her labs this morning are pending. ASSESSMENT AND PLAN: 1. Acute on chronic kidney disease. From her old labs, it appears she has a baseline creatinine of around 1.5. It appears that this is likely prerenal, superimposed on her chronic kidney disease secondary to her decreased intake. She has had some modest improvement with intravenous fluids since admission. Will continue this, and will go ahead and obtain urine studies and an ultrasound today. Awaiting report of her morning labs for further decisions. 2. Gastroparesis, nausea, vomiting. She is being followed by Gastroenterology. 3. Hypertension, currently controlled. 4. Fluid volume. She does not appear overloaded. In fact, she still appears clinically dry. Dictated by NELL Jordan for Hiram Anders MD Face to face encounter, data reviewed, discussed with Sara Vera on 10/21/18. I agree with the above assessment and plan of care. cc: Hiram Anders MD [facility]
--- NOTE | 2019-10-21 14:04 | Diag Imaging Result Doc PS360 ---
EXAM: US RENAL 2 (RETROPER) COMPLETE INDICATION: decreased renal function TECHNIQUE: COMPARISON: 05/01/2018 FINDINGS: There is a questionable slight increase in renal cortical echotexture, which is a nonspecific indicator of medical renal disease. No discrete renal mass or hydronephrosis is identified. The right kidney measures 9.4 cm and the left kidney measures 9.7 cm in the greatest longitudinal axes. The right renal cortex measures 0.8 cm and the left renal cortex measures 1.0 cm in thickness. There is trace layering echogenic debris in the urinary bladder, possibly proteinaceous debris or blood products. The urinary bladder is grossly unremarkable, otherwise. IMPRESSION: 1.Questionable slight increase in renal cortical echotexture, which is a nonspecific indicator of medical renal disease. 2.Trace layering echogenic debris in the urinary bladder lumen as described. Electronically signed by Vijay Zapata 10/21/2019 2:02 PM
--- NOTE | 2019-10-21 15:09 | GASTROENTEROLOGY CONSULTATION ---
DATE: 10/21/2019 REASON FOR CONSULTATION: Dysphagia. HISTORY OF PRESENT ILLNESS: Ms. Bobby is a 44-year-old female, who is frequently seen in the hospital for dysphagia, nausea and vomiting. The patient is back to the hospital complaining of persistent nausea, vomiting and dysphagia with decreased urinary output since 10/15. She was admitted on 10/17/2019. She had her bowel movement 5 days prior to her admission to the hospital. She has denied noticing any blood in her stools or blood in her emesis. The patient mentioned that 2 days before the 6th she was able to eat soft foods, but now she is not able to eat anything. The patient does have a history of esophageal strictures, gastroparesis status post gastric pacemaker, GERD, prior PEG placement and esophagitis. The patient was seen in the hospital on 08/15/2019, Gastroenterology saw her for nausea, vomiting and constipation, and prior to that she was seen on 05/30 for cyclic vomiting and hypokalemia. We had performed an endoscopy on 06/12 and the findings were that she had strictures with an inner diameter of 5 mm. A TTS balloon was used and stricture was dilated. The patient has been referred to [facility] and [place]. The patient also was noncompliant and does not keep up with her appointments or signs AMA. The patient's abdominal x-ray on 10/18/2018 showed no significant constipation. The patient's renal ultrasound has shown questionable slight increase in renal cortical echotexture, which is nonspecific indicator of medical renal disease, trace layering echogenic debris in the urinary bladder lumen. PAST MEDICAL HISTORY: Gastroparesis status post gastric pacemaker, diabetes type 2, insomnia, chronic kidney disease, hypertension, esophageal stricture, nausea and vomiting, dysphagia secondary to stricture, noncompliance with medication. PAST SURGICAL HISTORY: Cholecystectomy, gastric pacemaker, Port-A-Cath placement, esophageal dilation and G-tube placement in 2008. SOCIAL HISTORY: The patient is single. She is a former smoker. She has denied any alcohol, but occasionally has marijuana. ALLERGIES: No known drug allergies. FAMILY HISTORY: Positive for hypertension and diabetes. MEDICATIONS: Home medication is amlodipine 10 mg p.o. at bedtime. REVIEW OF SYSTEMS: As per HPI. Otherwise, 12 point review of systems is negative. PHYSICAL EXAMINATION: Vital Signs: Temperature 99.0, pulse 90, respirations 16, blood pressure 101/72, oxygen saturation 100% on room air. The patient's weight is 104.3, BMI is 17.9 kg/m2. General: She is alert and oriented x3. No acute distress. Answering questions appropriately. HEENT: Pale conjunctivae. No icterus. PERRL. Neck: Supple. Lungs: Clear to auscultation. Cardiovascular: Regular rate and rhythm. Abdomen: Soft, nontender, nondistended. Active bowel sounds are in all 4 quadrants. Extremities: No clubbing, no cyanosis, no edema. Pedal pulses 2+ present bilaterally. Neurologic: She is alert, oriented x3, nonfocal. Cranial nerves 2-12 grossly intact. LABORATORY DATA: WBCs are 7.85, RBC 2.79, hemoglobin 7.7, hematocrit is 24.5, platelet count is 239. Sodium 147, potassium 3.2, carbon dioxide 15, anion gap is 10. BUN 13, creatinine is 3.3, glucose 112, calcium 7.2, phosphorus 2.2, albumin is 2.6. IMAGING: Renal ultrasound has shown questionable slight increase in the renal cortical echotexture which is a nonspecific indicator of medical renal disease, trace layering echogenic debris in the urinary bladder lumen. Abdominal x-ray has shown no significant constipation. IMPRESSION AND PLAN: 1. Dysphagia. 2. Esophageal stricture. 3. Diabetes type 2. 4. Gastroparesis. 5. Anemia. 6. Constipation. 7. Renal failure. PLAN: Ms. Bobby is a 44-year-old female with a history of esophageal strictures, status post gastric pacemaker. The patient has an extensive history of being noncompliant. She was recently sent to [place] for a surgical evaluation. We currently do not plan to do any procedures on the patient. We would suggest her to be transferred to [facility] for repeat esophageal dilation under fluoroscopy or esophageal stent placement versus esophagectomy due to the long refractory esophageal strictures. She can continue with PPI's BID, antiemetics Zofran, Phenergan and Reglan as scheduled. She can add Glucerna to her diet and have pureed diet. She can follow up as an outpatient in 4-6 weeks. We will sign off for now. This plan was discussed with Dr. Haq. Thank you for your consult and please call us for any further questions or concerns. Dictated by NELL Anthony for Yandel Haq MD cc: Yandel Haq MD I have seen and examined the patient myself and I agree with the above plan of care. Please call with any questions or concerns. MTDNyasia
[2019-10-21] MEDS ORDERED: POTASSIUM PHOSPHATE 20 MMOL in NS 250 ML IV ONE (16:03)
[2019-10-21] MEDS: HEPARIN SUBQ SCH (20:12)
[2019-10-21] MEDS: HUMULIN R SUBQ SCH (20:13)
[2019-10-21] MEDS: SODIUM CHLORIDE 0.9% INJ PRN (20:16)
[2019-10-22] MEDS: D5 1/2 NS 1,000 ML IV SCH ×3 (00:46→17:10)
[2019-10-22] MEDS: PHENERGAN IV PRN ×5 (00:46→21:18)
[2019-10-22] MEDS: REGLAN IV SCH ×4 (00:46→18:08)
--- NOTE | 2019-10-22 04:13 | PROGRESS NOTE ---
DATE: 10/21/2019 SUBJECTIVE: The patient is resting comfortably in bed. She denies having any abdominal pain at this time. She states that she cannot swallow solid food. When she was transferred to [place] in August, she states that they elected not to do an esophagectomy or place an esophageal stent. Instead, they performed balloon dilation on her esophageal stricture and sent her home. OBJECTIVE: Vital Signs: Temperature 99 degrees, blood pressure 111/72, heart rate 90, respirations 16, O2 saturation 100% on room air. Urine output 600 mL. General: This is a chronically ill-appearing, middle-aged female lying in bed in no acute distress. Heart: S1, S2 normal. Regular rate and rhythm. Lungs: Clear to auscultation bilaterally. Abdomen: Positive bowel sounds. Soft, nontender, nondistended. Extremities: No edema, no cyanosis, no calf tenderness. Neurologic: The patient is alert and oriented x4. LABS: White blood cell count 7.8, hemoglobin 7.7, hematocrit 24, platelets 239,000. Sodium 147, potassium 3.2, chloride 122, CO2 15, BUN 13, creatinine 3.3, phosphorus 2.2, calcium 7.2, albumin 2.6. ASSESSMENT AND PLAN: 1. Dysphagia secondary to chronic esophageal stricture status post multiple failed dilation attempts. The patient is currently n.p.o. at this time. We will continue with intravenous fluids, intravenous Reglan, as well as intravenous Protonix. We will likely need to refer the patient back to [place] so that she can undergo another dilation. The records from [place] have been requested. 2. Acute kidney injury on chronic kidney disease. Likely secondary to volume depletion. The patient's BUN and creatinine are improving with intravenous fluid hydration. Nephrology is following. We will avoid nephrotoxic agents. 3. Insulin-dependent diabetes mellitus. Stable. Continue with sliding scale insulin. 4. Hypertension. Controlled. 5. Medical noncompliance. Aware. 6. Anemia. The patient's hemoglobin and hematocrit are slowly trending downward. This may be hemodilutional. We will check iron studies. 7. Hypokalemia. We will replace the patient's potassium. 8. Hypophosphatemia. We will replace the patient's phosphorus. 9. Hypernatremia. Continue on the current intravenous fluid. We will monitor the sodium closely. 10. Severe protein calorie malnutrition. The patient is n.p.o. at this time. 11. Deep vein thrombosis prophylaxis. Will start the patient on heparin. cc: Debra Maravilla MD MTDD
[2019-10-22] MEDS: HUMULIN R SUBQ SCH ×4 (06:06→22:23)
[2019-10-22] MEDS: DILAUDID IV PRN ×4 (06:22→19:16)
[2019-10-22 08:47] LABS: RETIC% 2.17 % (0.8-2.1); RETIC-HE 29.8 PG (28.2-36.6)
[2019-10-22 08:59] LABS: HEMATOCRIT 22.7 % (37.0-47.0); HEMOGLOBIN 7.4 g/dL (12.0-16.0); MCH 28.9 PG (27-31); MCHC 32.6 g/dL (33-37); MCV 88.7 FL (81-99); MPV 12.9 FL (7.4-10.4); RBC 2.56 XMIL (4.2-5.4); RDW 17.5 % (11.5-14.5); WBC 5.46 X1000 (4.8-10.8)
[2019-10-22 09:49] LABS: ALBUMIN 2.2 g/dL (3.5-5.0); CALCIUM 7.3 mg/dL (8.8-10.2); CREATININE 3.3 mg/dL (0.5-0.9)
[2019-10-22 10:09] LABS: FERRITIN 45 ng/mL (13-150)
[2019-10-22] MEDS: HEPARIN SUBQ SCH ×3 (10:14→21:24)
[2019-10-22] MEDS: SODIUM CHLORIDE 0.9% INJ SCH (10:14)
[2019-10-22] MEDS: PROTONIX IV SCH ×2 (10:14→21:17)
[2019-10-22 10:28] LABS: MAGNESIUM 1.3 mg/dL (1.5-2.7)
[2019-10-22] MEDS: SODIUM CHLORIDE 0.9% INJ PRN ×2 (12:06→17:05)
--- NOTE | 2019-10-22 14:42 | NEPHROLOGY PROGRESS NOTE ---
DATE: 10/22/2019 SUBJECTIVE: Patient resting in bed. She continues with nausea and vomiting. OBJECTIVE: Vital Signs: Temperature 98.7 degrees, pulse 86, respiratory rate 16, blood pressure 127/74, intake 2.5 L, output 250 mL plus multiple voids that were not measured. General: Chronically ill-appearing middle-aged female resting in bed no acute distress. HEENT: Normocephalic, atraumatic. Conjunctivae are pink. Oral mucosa moist. Neck: Supple without JVD. Cardiovascular: Regular rate and rhythm. No murmur or gallop. Pulmonary: No increased work of breathing. She is clear, she is on room air. Abdomen: Soft with positive bowel sounds. Continues with some mild tenderness diffusely. : Voiding. Extremities: No edema, clubbing, cyanosis. Integument: Skin is warm and dry. Neuro: Nonfocal. LAB DATA: Pending. Her creatinine yesterday was down to 3.3 prior was 3.5. ASSESSMENT AND PLAN: 1. Acute on chronic kidney disease. Baseline 1.5. Patient has continued with IV fluid infusion overnight she has had increasing urine output although I do not have an accurate measurement. The lab was there draw blood when I evaluated the patient, will recheck those results shortly with further decisions if warranted. 2. Electrolytes, acid-base balance, anemia. See above for plan. 3. Gastroparesis followed by primary gastroenterology, there is some discussion about sending her to either [place] or [facility]. She has been seen in [place] prior for this issue for dilatation. Dictated by NELL Jordan for Hiram Anders MD cc: Hiram Anders MD
[2019-10-22 17:52] LABS: URINE SOURCE CLEAN CATCH
[2019-10-22 18:06] LABS: UR CREAT RANDOM 75.3 mg/dL (11-20); UR PROT RANDOM 53.3 mg/dL
[2019-10-22 18:12] LABS: BILIRUBIN URINE NEGATIVE (NEGATIVE); BLOOD URINE SMALL (NEGATIVE); COLOR ORANGE; GLUCOSE URINE NEGATIVE (NEGATIVE); KETONE URINE NEGATIVE (NEGATIVE); LEUKOCYTES URINE LARGE (NEGATIVE); NITRITE URINE NEGATIVE (NEGATIVE); PROTEIN URINE 50 mg/dL (NEGATIVE); SP GRAVITY URINE 1.009; TURBIDITY URINE TURBID (CLEAR); UROBILINOGEN URINE NORMAL (NORMAL)
[2019-10-22 18:17] LABS: UR EPITHELIAL CELLS >10 /HPF (<10); URINE BACTERIA 3+ /HPF; URINE WBC TNTC /HPF (<10)
[2019-10-22 18:23] LABS: URINE YEAST NONE SEEN
[2019-10-22] MEDS: SODIUM BICARBONATE 8.4% 150 MEQ in D5W 1,000 ML IV SCH (22:30)
[2019-10-22] MEDS: POTASSIUM CHLORIDE 20 MEQ/SWI 20 MEQ/100 ML IVPB IV SCH (22:54)
--- NOTE | 2019-10-23 00:41 | PROGRESS NOTE ---
DATE: 10/22/2019 INTERVAL HISTORY: No acute events overnight. She was on half normal saline-containing IV fluids. SUBJECTIVE: Ms. Bobby denies new complaints. She is still feeling worse and has not been able to swallow. OBJECTIVE: Vital signs: Temperature 98.4 degrees, pulse 87, respiratory 18, blood pressure 124/84, saturating 100% room air. On physical examination, not in acute distress. Oral cavity is dry. She has a left-sided chest port. Air entry bilateral equal. No wheeze, rhonchi or crackles. S1, S2 normal. No murmur or gallop. Abdomen is soft, nontender. She has a right lower extremity pacemaker. She is alert and oriented x3. LABORATORY DATA: Labs suggestive of hemoglobin of 7.4. Sodium of 148, potassium 3, chloride 124, BUN 13, creatinine of 3.3, magnesium of 1.3. Microbiology: No positive data. DIAGNOSTIC DATA: No new imaging. ASSESSMENT: 1. Dysphagia due to recurrent esophageal stricture, status post failed multiple dilatation. 2. Acute kidney injury on chronic kidney disease due to intravascular volume depletion. 3. Hypernatremia, hyperchloremia, hypokalemia, hypomagnesemia. 4. Chronic anemia. 5. Severe protein-energy malnutrition. PLAN: Change intravenous fluids to D5 water with bicarbonate. Replenish potassium and magnesium, and keep her on intravenous Reglan and intravenous Phenergan. My plan is to stop intravenous hydromorphone tomorrow. I will also keep her on intravenous Protonix. Disposition: Monitor the patient inside the hospital. Plan of care discussed with the patient. Her questions have been answered. cc: Clay Still MD
[2019-10-23] MEDS: DILAUDID IV PRN (00:42)
[2019-10-23] MEDS: REGLAN IV SCH ×4 (00:43→18:06)
[2019-10-23] MEDS: MAGNESIUM SULFATE 2 GM/S.W.I. 2 GM/50 ML IVPB IV SCH ×2 (00:43→03:44)
[2019-10-23] MEDS: POTASSIUM CHLORIDE 20 MEQ/SWI 20 MEQ/100 ML IVPB IV SCH ×3 (01:40→17:57)
[2019-10-23] MEDS: PHENERGAN IV PRN ×4 (03:49→20:52)
[2019-10-23 08:38] LABS: ALBUMIN 2.3 g/dL (3.5-5.0); CALCIUM 7.6 mg/dL (8.8-10.2); CREATININE 3.2 mg/dL (0.5-0.9); PHOSPHORUS 3.8 mg/dL (2.7-4.5); POTASSIUM 3.4 mmol/L (3.5-5.1)
[2019-10-23] MEDS: HEPARIN SUBQ SCH ×2 (09:38→20:56)
[2019-10-23] MEDS: SODIUM CHLORIDE 0.9% INJ PRN ×2 (09:41→15:40)
[2019-10-23] MEDS: PROTONIX IV SCH ×2 (09:43→20:52)
[2019-10-23] MEDS: SODIUM CHLORIDE 0.9% INJ SCH (09:44)
[2019-10-23] MEDS: HUMULIN R SUBQ SCH ×4 (10:59→20:52)
[2019-10-23] MEDS: SODIUM BICARBONATE 8.4% 150 MEQ in D5W 1,000 ML IV SCH (18:05)
--- NOTE | 2019-10-23 18:42 | NEPHROLOGY PROGRESS NOTE ---
DATE: 10/23/2019 SUBJECTIVE: She is about the same. She is thirsty and has had nothing by mouth. No shortness of breath, nausea, vomiting. OBJECTIVE: Vital Signs: Blood pressure 141/98, heart rate 94, respirations 19, afebrile. Intake 2.5 L. Output 500 mL. General: No acute distress. Skin: Warm and dry. Neck: Neck veins are not appreciated. Heart: Regular. No gallops. Lungs: Equal. No crackles. Abdomen: Soft, nontender. Bowel sounds are present. Extremities: With no edema, clubbing, or cyanosis. IMPRESSION: Acute kidney injury. BUN 12, creatinine 3.2 today. Slow recovery in the last 48 hours despite positive fluid balance. Abdominal imaging on the did not demonstrate any evidence of obstruction. Her baseline creatinine is 1.7 as of September 20. Continue current care. cc: Hiram Anders MD
--- NOTE | 2019-10-23 20:21 | Diag Imaging Result Doc PS360 ---
EXAM: CHEST-PORTABLE INDICATION: Hypoxia TECHNIQUE: One view COMPARISON: 09/19/2019 FINDINGS: There is a stable left chest port. The lungs appear grossly clear. There is no discrete pleural fluid collection or pneumothorax. The cardiomediastinal silhouette and central vasculature are grossly unremarkable. IMPRESSION: No evidence of acute pathology by plain radiograph. Electronically signed by Vijay Zapata 10/23/2019 8:19 PM
--- NOTE | 2019-10-23 22:06 | PROGRESS NOTE ---
DATE: 10/23/2019 INTERVAL HISTORY: No acute events. OBJECTIVE: Vital Signs: Temperature 98.3 degrees, pulse 93, respiratory 18, blood pressure 141/93, saturating 95% on room air. I reviewed the records of [facility]. She underwent dilatation in August 2019. The plan was to get dilation every 2 weeks for 4 times and then every month after that, but she never followed up. cc: Clay Still MD
--- NOTE | 2019-10-23 22:15 | PROGRESS NOTE ---
DATE: 10/23/2019 INTERVAL HISTORY: No acute events overnight. SUBJECTIVE: Ms. Jansen denies any complaints. Denies any chest pain, shortness of breath, or cough. She wants to have some ice chips. VITALS: Temperature 98.3 degrees, pulse 93, respiratory 18, blood pressure 140/90, saturating 93% room air. PHYSICAL EXAMINATION: General: Not in acute distress. Oral cavity: Is moist. Lungs: Air entry bilaterally equal. No wheeze, rhonchi or crackles. Heart: Normal. No murmur or gallop. Abdomen: Soft. Mild tenderness. She has a right-sided lower quadrant pacemaker. Extremities: No lower extremity edema. LABS: Suggestive of hypokalemia with potassium of 3.4, chloride of 120, BUN of 12, creatinine 3.2. No positive microbiological data. She states she has been making a good amount of urine, but her urine output has only been 500 to 300 mL actually. ASSESSMENT AND PLAN: 1. Dysphagia due to recurrent esophageal stricture status post failed multiple dilatation. 2. Acute kidney injury on chronic kidney disease stage 3 due to intravascular volume depletion with recurrent nausea and vomiting. 3. Hypernatremia, hyperchloremia, hypokalemia, hypomagnesemia. Currently being repleted. Continue D5 water with bicarbonate drip. 4. Chronic anemia. Follow up with CBC tomorrow. 5. Severe protein-calorie malnutrition. PLAN: Continue intravenous fluids with close input and output monitoring. I counseled patient about getting close input and output monitoring. I will continue her on Reglan. I will follow up with electrocardiogram tomorrow to rule out any acute interval prolongation. Continue intravenous Protonix. I called the [facility] for transfer. However, they did not have a bed and they were on diversion. I called [facility] [place] as well and explained to them about the patient's clinical condition. They did not have bed either. They are going to let us know and put her on a wait list whenever the bed becomes available. DISPOSITION: Continue to monitor the patient inside the hospital. cc: Clay Still MD
[2019-10-24] MEDS: REGLAN IV SCH ×4 (00:26→23:53)
[2019-10-24] MEDS: PHENERGAN IV PRN ×4 (01:56→22:06)
[2019-10-24] MEDS: HUMULIN R SUBQ SCH ×4 (06:31→20:09)
[2019-10-24] MEDS: SODIUM BICARBONATE 8.4% 150 MEQ in D5W 1,000 ML IV SCH (06:51)
--- NOTE | 2019-10-24 07:12 | EKG Report ---
Test Performed on : 10/24/2019 06:58:30 AM Test Reason : Follow up QTc Blood Pressure : / mmHG Vent. Rate : 087 BPM Atrial Rate : 087 BPM P-R Int : 152 ms QRS Dur : 072 ms QT Int : 390 ms P-R-T Axes : 029 030 032 degrees QTc Int : 469 ms Normal sinus rhythm. Low voltage QRS Borderline ECG When compared with ECG of 18-SEP-2019 20:43, (Unconfirmed) Criteria for Septal infarct are no longer present Confirmed by Mario Andino MD ([id number]) on 10/25/2019 12:16:19 PM
[2019-10-24 08:16] LABS: BASO# 0.01 X1000 (0.0-0.2); BASO% 0.2 % (0.0-0.8); EOS# 0.07 X1000 (0.0-0.7); EOS% 1.5 % (0.0-10.0); HEMATOCRIT 23.2 % (37.0-47.0); HEMOGLOBIN 7.5 g/dL (12.0-16.0); LYMPH# 1.31 X1000 (1.2-3.4); LYMPH% 28.5 % (20.5-51.1); MCH 27.6 PG (27-31); MCHC 32.3 g/dL (33-37); MCV 85.3 FL (81-99); MONO# 0.36 X1000 (0.11-0.59); MONO% 7.8 % (1.7-9.3); NEUT# 2.85 X1000 (1.4-6.5); PLT 257 X1000 (130-400); RBC 2.72 XMIL (4.2-5.4); RDW 16.6 % (11.5-14.5)
[2019-10-24 08:35] LABS: ALBUMIN 2.4 g/dL (3.5-5.0); CALCIUM 7.6 mg/dL (8.8-10.2); CREATININE 2.7 mg/dL (0.5-0.9); PHOSPHORUS 2.9 mg/dL (2.7-4.5); POTASSIUM 2.9 mmol/L (3.5-5.1)
[2019-10-24] MEDS ORDERED: POTASSIUM CHLORIDE 20% LIQUID PO ONE (10:31)
[2019-10-24] MEDS: HEPARIN SUBQ SCH ×2 (10:34→20:09)
[2019-10-24] MEDS: PROTONIX IV SCH ×2 (10:35→20:09)
[2019-10-24] MEDS ORDERED: SODIUM BICARBONATE 8.4% 100 MEQ in D5W 1,000 ML IV SCH (11:46)
[2019-10-24] MEDS: POTASSIUM CHLORIDE 20 MEQ/SWI 20 MEQ/100 ML IVPB IV SCH ×2 (12:54→15:02)
--- NOTE | 2019-10-24 14:08 | PROGRESS NOTE ---
DATE: 10/24/2019 INTERVAL HISTORY: No acute events overnight. Ms. Bobby wants to start drinking liquids. However, she is still throwing up. VITAL SIGNS: Temperature 97.6 degrees, pulse 80, respiratory rate 19, blood pressure 130/88, saturating 100% on room air. PHYSICAL EXAMINATION: General: Ms. Bobby is not in acute distress. She appears cachectic. HEENT: Oral cavity is moist. Lungs: Air entry bilaterally equal. No wheeze, rhonchi, or crackles. Cardiovascular: S1, S2 normal. No murmur, rub or gallop. Abdomen: Soft, nontender. Right-sided lower quadrant gastric pacemaker. She has left-sided port as well. Extremities: No lower extremity edema. Neurologic: She is alert and oriented x3. Input and output: Not charted appropriately. Her urine output is only 200; however, she states she is making much more urine. LABORATORY DATA: Suggestive of hemoglobin of 7.5, hypokalemia with potassium of 2.9. Hypernatremia, hyperchloremia. Creatinine improved to 2.7 from 5.5 on presentation. MICROBIOLOGY: No assessment. IMAGING: Chest x-ray was unremarkable. ASSESSMENT: 1. Recurrent dysphagia due to recurrent esophageal stricture status post multiple dilatations which have been failing. The latest one was in August 2019 at [facility]. 2. Acute kidney injury on chronic kidney disease stage III due to intravascular volume depletion with recurrent nausea and vomiting. 3. Hypernatremia, hyperchloremia, hypokalemia and hypomagnesemia. 4. Chronic anemia. 5. Severe protein calorie malnutrition. PLAN: Continue bicarbonate-containing intravenous fluids. Continue potassium repletion. Continue intravenous Reglan. I talked with [facility] yesterday and they are working through her insurance to facilitate transfer of her to [facility]. She is currently on a wait list. Plan of care discussed with Ms. Bobby. Her questions have been answered. cc: Clay Still MD [facility]
--- NOTE | 2019-10-24 17:48 | NEPHROLOGY PROGRESS NOTE ---
DATE: 10/24/2019 TIME SEEN: 0645 SUBJECTIVE: Ms. Bobby is currently resting quietly in bed, states that they are attempting to keep her nothing by mouth except for ice chips. She has had some emesis during the night. VITAL SIGNS: Temperature 97.6 degrees, blood pressure 151/88, heart rate 83, respirations 14. She is on room air, last recorded saturation 97%. She has had 2130 in. She has had 600 out to void. LABS: Currently pending with a previous potassium 3.4. Previous BUN 12 with a creatinine down to 3.2. Her CO2 continues low at 16. Her white count is 4.6, hemoglobin 7.5, hematocrit 23.2 with a platelet count of 257,000. PHYSICAL EXAMINATION: General: This is a 44-year-old female. She is resting quietly in bed. She appears chronically ill in no acute distress. Skin: Warm and dry. HEENT: Normocephalic, atraumatic. Conjunctivae pale. She has SKYLAR. Mucous membranes are dry. Neck: Supple. Trachea midline. No evidence of JVD. Cardiovascular: She is regular rate and rhythm. No murmur or gallop appreciated. Lungs: Clear to auscultation bilaterally. Equal excursion on room air. Abdomen: Soft, nontender. Positive bowel sounds. Genitourinary: Not inspected. Patient has been voiding adequate amount. Extremities: Have no edema. No clubbing or cyanosis. Neurological: She is alert and oriented x3. ASSESSMENT AND PLAN: 1. Acute kidney injury. Her BUN has remained stable with a creatinine of 3.2 yesterday. Labs are still slowly trending down. We do not have her results from today. Adequate urine output has been documented. We will continue to monitor and follow. Her IV fluids of D5W with 3 amps of sodium bicarbonate continue at 75 mL an hour. 2. Electrolytes, acid-base balance and anemia. These have all been acceptable but low. 3. Urinary tract infection. The patient is not on any antibiotics at this time I would like to thank you for allowing us to follow with this patient. Dictated by NELL Mcdonough for Hiram Anders MD Face to face encounter, data reviewed, discussed with Eliot Sánchez on 10/24/19. I agree with the above assessment and plan of care. cc: NELL Mcdonough MD MTDD
[2019-10-25] MEDS: REGLAN IV SCH ×3 (00:01→14:10)
[2019-10-25] MEDS: PHENERGAN IV PRN ×4 (03:53→20:02)
[2019-10-25] MEDS: HUMULIN R SUBQ SCH ×4 (06:08→20:08)
[2019-10-25] MEDS: HEPARIN SUBQ SCH ×2 (09:28→20:08)
[2019-10-25] MEDS: PROTONIX IV SCH ×2 (09:28→20:07)
[2019-10-25] MEDS: SODIUM BICARBONATE 8.4% 50 MEQ in D5W 1,000 ML IV SCH ×3 (14:05→23:24)
--- NOTE | 2019-10-25 17:34 | NEPHROLOGY PROGRESS NOTE ---
DATE: 10/25/2019 SUBJECTIVE: Not much change. Still not able to eat. No shortness of breath. OBJECTIVE: Vital Signs: Blood pressure 132/94, heart rate 88, respiration 18, afebrile. Intake 1.4 L. Output 900 mL. General: No acute distress. Skin: Warm and dry. Neck: Neck veins are not distended. Heart: Regular. Lungs: Equal. Abdomen: Benign. Extremities: No edema. LABORATORY DATA: None today. IMPRESSION: Acute kidney injury with hypernatremia. Her intravenous fluids were adjusted yesterday. We will recheck labs in the morning. No medical changes today. cc: Hiram Anders MD
--- NOTE | 2019-10-25 18:14 | PROGRESS NOTE ---
DATE: 10/25/2019 INTERVAL HISTORY: No acute events overnight. I had a detailed long discussion with [facility] feather cutting machine feeder and transfer system team about Ms. Bobby' clinical condition. They informed me that Ms. Bobby was transferred to [facility] in August 2019 and underwent onetime dilatation, after which she was supposed to follow up with [facility] feather cutting machine feeder every 2 weeks for serial dilatation, which she never did. Considering Ms. Bobby has had compliance issues, they recommended that she should be treated by a feather cutting machine feeder or surgeon who is local to her residence, to ensure further compliance. They also recommended if I could get in touch with [facility] or the [place] for further help. I appreciated their recommendation. Her code status was also changed to Do Not Resuscitate/Allow Natural level 1. She has a portable DNR and she had agreed to it after this discussion. SUBJECTIVE: Ms. Bobby is asking for intravenous Dilaudid since she is throwing up. I have also been informed that Ms. Bobby has been eating solid food, which her family used to bring. OBJECTIVE: Vital signs: Temperature 97.6 degrees, pulse 88, respiratory rate 19, blood pressure 125/87, saturating 100% on room air. On physical examination not in acute distress. Oral cavity is moist. Air entry bilaterally equal. No wheezing, rhonchi or crackles. S1, S2 normal. No murmur or gallop. She has a left-sided chest port. Abdomen is soft, nontender. She has a right- sided lower quadrant gastric pacemaker. No lower extremity edema. She is alert and oriented x3. LABORATORY DATA: Labs suggestive of WBC of 4.6, hemoglobin of 7.5. Her blood glucose has been 77. No new microbiological or imaging data. ASSESSMENT: 1. Recurrent dysphagia due to recurrent esophageal stricture, status post multiple dilatations, with the latest being in August 2019 at [facility]. The patient has also been noncompliant with dietary recommendations and has not been following up with outpatient providers. 2. Acute kidney injury on chronic kidney disease due to intravascular volume depletion, with recurrent nausea and vomiting. 3. Hypernatremia, hyperchloremia, hypokalemia, hypomagnesemia. 4. Chronic anemia. 5. Severe protein-energy malnutrition. PLAN: Continue clear liquid diet, intravenous Protonix, intravenous fluid resuscitation and follow up with BMP and magnesium tomorrow. DISPOSITION: I will continue to monitor the patient inside the hospital. Plan of care discussed with the patient. Her questions have been answered. cc: Clay Still MD
[2019-10-25] MEDS: SODIUM CHLORIDE 0.9% INJ PRN (20:02)
[2019-10-25] MEDS: SODIUM CHLORIDE 0.9% INJ SCH (20:07)
[2019-10-25] MEDS: DULCOLAX PR SCH (20:08)
[2019-10-25] MEDS: LACTULOSE PO SCH (20:08)
[2019-10-26] MEDS: SODIUM CHLORIDE 0.9% INJ SCH (01:52)
[2019-10-26] MEDS: PHENERGAN IV PRN ×3 (01:52→18:16)
[2019-10-26] MEDS: LEVSIN-SL SL PRN (01:57)
[2019-10-26] MEDS: SODIUM BICARBONATE 8.4% 50 MEQ in D5W 1,000 ML IV SCH ×2 (02:48→14:22)
[2019-10-26] MEDS: HUMULIN R SUBQ SCH ×4 (06:33→21:04)
[2019-10-26 07:09] LABS: BASO# 0.01 X1000 (0.0-0.2); BASO% 0.2 % (0.0-0.8); EOS# 0.09 X1000 (0.0-0.7); EOS% 1.6 % (0.0-10.0); HEMATOCRIT 24.3 % (37.0-47.0); HEMOGLOBIN 7.3 g/dL (12.0-16.0); LYMPH# 1.55 X1000 (1.2-3.4); LYMPH% 27.2 % (20.5-51.1); MCH 26.8 PG (27-31); MCV 89.3 FL (81-99); MONO# 0.55 X1000 (0.11-0.59); MONO% 9.6 % (1.7-9.3); MPV 11.8 FL (7.4-10.4); NEUT% 61.4 % (42.2-75.2); PLT 262 X1000 (130-400); RBC 2.72 XMIL (4.2-5.4); RDW 17.3 % (11.5-14.5)
[2019-10-26 07:28] LABS: MAGNESIUM 1.7 mg/dL (1.5-2.7); PHOSPHORUS 2.3 mg/dL (2.7-4.5)
[2019-10-26 07:48] LABS: ALBUMIN 2.6 g/dL (3.5-5.0); CALCIUM 7.7 mg/dL (8.8-10.2); CREATININE 2.2 mg/dL (0.5-0.9); PHOSPHORUS 2.4 mg/dL (2.7-4.5); POTASSIUM 2.9 mmol/L (3.5-5.1)
[2019-10-26] MEDS: DULCOLAX PR SCH ×2 (10:09→21:06)
[2019-10-26] MEDS: HEPARIN SUBQ SCH ×2 (10:09→21:05)
[2019-10-26] MEDS: LACTULOSE PO SCH ×2 (10:10→21:05)
[2019-10-26] MEDS: PROTONIX IV SCH ×2 (10:17→21:04)
[2019-10-26] MEDS ORDERED: POTASSIUM CHLORIDE 20% LIQUID PO ONE (15:49)
[2019-10-26] MEDS: POTASSIUM CHLORIDE 20 MEQ/SWI 20 MEQ/100 ML IVPB IV SCH ×2 (16:47→18:53)
--- NOTE | 2019-10-26 17:27 | PROGRESS NOTE ---
DATE: 10/26/2019 INTERVAL HISTORY: No acute events overnight. SUBJECTIVE: Ms. Bobby is denying any complaints. She states she has she has been able to tolerate a clear liquid diet. Her nausea and vomiting have improved. She also states she had a bowel movement; however, there is no documentation of it. She states she is only taking liquids; however, I was informed that someone from the family is bringing her food. VITALS: Temperature 97.8, pulse 82, respiratory rate 18, blood pressure 142/86. She is saturating 100% on room air. PHYSICAL EXAMINATION: General: Not in acute distress. HEENT: Oral cavity is moist. Lungs: Air entry bilaterally equal. No wheezes or crackles. Cardiovascular: S1, S2 normal. No murmur or gallop. Chest: She has a left-sided chest port. Abdomen: Soft, nontender. Right-sided lower quadrant gastric pacemaker. Extremities: No lower extremity edema. Neurologic: She is alert and oriented x3. LABORATORY DATA: She does have stable chronic anemia with a hemoglobin of 7.3, platelets of 262. Electrolytes suggest persistent hypernatremia and hyperchloremia, and hypokalemia which I am currently repleting. She also has a magnesium of 1.7. Microbiology: No new data. ASSESSMENT: 1. Recurrent dysphagia due to recurrent esophageal stricture, status post multiple dilatations with the latest being in August 2019 at [facility]. The patient has been noncompliant with dietary recommendations. Has not been has not been following up with outpatient providers. Continue intravenous Protonix b.i.d. and clear liquid diet. 2. Acute kidney injury on chronic kidney disease due to recurrent nausea vomiting related to intravascular volume depletion. Continue to monitor creatinine 3. Hypernatremia, hyperchloremia, hypokalemia and now elevated bicarbonate level. I will stop her intravenous fluids which contained bicarbonate and monitor her in the next 24 hours, and will follow up with basic metabolic panel. 4. Chronic anemia. 5. Severe protein energy malnutrition. She is stable. PLAN: Previously, the [facility] was on diversion, and [facility] had recommended she should follow up with local providers to ensure compliance. Currently, she is tolerating a clear liquid diet well. I will follow up with electrolytes and see her course. Based on that, she may need an outpatient referral to see a traffic and transport planner at [facility]. cc: Clay Still MD
[2019-10-27] MEDS: PHENERGAN IV PRN ×4 (00:30→16:50)
[2019-10-27] MEDS: HUMULIN R SUBQ SCH ×2 (06:52→11:02)
[2019-10-27] MEDS: HEPARIN SUBQ SCH ×2 (08:27→20:20)
[2019-10-27] MEDS: DULCOLAX PR SCH ×2 (08:27→20:20)
[2019-10-27] MEDS: LACTULOSE PO SCH ×3 (08:27→20:24)
[2019-10-27] MEDS: PROTONIX IV SCH ×2 (08:27→20:21)
[2019-10-27 08:29] LABS: CALCIUM 7.4 mg/dL (8.8-10.2); CREATININE 2.3 mg/dL (0.5-0.9)
[2019-10-27] MEDS: POTASSIUM CHLORIDE 20% LIQUID PO SCH ×3 (13:38→20:20)
[2019-10-27] MEDS: TUMS PO SCH ×2 (13:38→16:50)
--- NOTE | 2019-10-27 20:05 | PROGRESS NOTE ---
DATE: 10/27/2019 INTERVAL HISTORY: No acute events overnight. Ms. Bobby continues to have nausea and vomiting has not been able to keep anything down. VITALS: Temperature 98.6 degrees, pulse 88, respiratory 23, blood pressure 149/95, saturating 100% room air, input and output she does say that she had a bowel movement though it is not documented. PHYSICAL EXAMINATION: Appears cachectic not in acute distress. Oral cavity is moist. No oral thrush. Air entry bilaterally equal. No wheeze or crackles. S1, S2 normal. No gallop. Abdomen is soft. Right-sided lower quadrant gastric pacemaker. No real tenderness, active bowel sounds. She has a left-sided chest port. No lower extremity edema. She is alert and oriented x3. LABS: Suggestive of no WBC today. BMP suggestive of sodium of 155, potassium of 3, chloride of 110, her BUN is 6, creatinine 2.3, her blood glucose is 70. She does have hypocalcemia. No new microbiological or imaging data. ASSESSMENT AND PLAN: 1. Recurrent dysphagia due to recurrent esophageal stricture status post multiple dilatations latest being in August 2019 at [facility]. Patient has been noncompliant with dietary recommendation and following up with outpatient kohinoor operator, attempts to request transfer to [facility] have not been successful. Continue intravenous Protonix IV b.i.d. and clear liquid diet . 2. Acute kidney injury on chronic kidney disease due to recurrent nausea vomiting related to intravascular volume depletion, continue to monitor creatinine . 3. Hyponatremia, hyperchloremia, hypokalemia and now elevated bicarbonate with hypokalemia. I will continue to hold intravenous fluids for now, reassess electrolytes tomorrow and will resume her IV fluids based on her electrolytes. 4. Chronic anemia, severe protein energy malnutrition. Previously attempts were made to set up intravenous TPN which were unsuccessful. Previously she also had a J-tube which got dislodged. PLAN: Continue monitor patient inside the hospital. I will call [facility] gastroenterology tomorrow to see if patient could be transferred for further evaluation. Plan of care discussed with patient, her questions have been answered. cc: MD SYDNEE Núñez
[2019-10-27] MEDS: SODIUM CHLORIDE 0.9% INJ SCH (20:21)
[2019-10-28] MEDS: PHENERGAN IV PRN ×4 (00:54→17:15)
[2019-10-28] MEDS: PROTONIX IV SCH ×2 (08:26→21:36)
[2019-10-28] MEDS: DULCOLAX PR SCH ×2 (08:26→21:37)
[2019-10-28] MEDS: SODIUM CHLORIDE 0.9% INJ SCH (08:26)
[2019-10-28] MEDS: LACTULOSE PO SCH (08:26)
[2019-10-28] MEDS: HEPARIN SUBQ SCH ×2 (08:27→21:35)
[2019-10-28] MEDS: TUMS PO SCH ×3 (08:27→17:05)
[2019-10-28 10:35] LABS: CALCIUM 8.1 mg/dL (8.8-10.2); CREATININE 2.5 mg/dL (0.5-0.9); POTASSIUM 2.9 mmol/L (3.5-5.1)
[2019-10-28] MEDS: D5W 1,000 ML IV SCH ×3 (11:27→23:30)
[2019-10-28] MEDS: POTASSIUM CHLORIDE 20 MEQ/SWI 20 MEQ/100 ML IVPB IV SCH ×2 (11:35→13:30)
--- NOTE | 2019-10-28 11:51 | PROGRESS NOTE ---
DATE: 10/28/2019 INTERVAL HISTORY: No acute events overnight. The patient continues not to tolerate anything by mouth. However, she continues to try clear liquids. VITALS: Temperature 97.2 degrees, pulse 79, respiratory rate 17, blood pressure 150/90, she is saturating 100% on room air. PHYSICAL EXAMINATION: Cachectic. Not in acute distress. Oral cavity is moist. Air entry bilaterally equal. No wheeze, rhonchi, crackles. S1 and S2 normal. No murmur, rub, or gallop. Abdomen is soft, nontender. She has a right-sided lower abdominal gastric pacemaker. No lower extremity edema. She is alert and oriented x3. She has left-sided chest port. LABS: Suggestive of sodium of 167, potassium of 2.9, chloride of 118, BUN 7, creatinine 2.5. Her last magnesium was 1.7. MICROBIOLOGY: No new data. IMAGING: No new imaging. ASSESSMENT AND PLAN: 1. Recurrent dysphagia due to recurrent esophageal stricture, status post failed multiple dilatations, latest being in August 2019 at [place]. The patient has been noncompliant with dietary recommendations and outpatient followups. Continue intravenous Protonix intravenously twice a day. 2. Acute kidney injury on chronic kidney disease due to recurrent nausea, vomiting, and intravascular volume depletion. I will monitor her kidney functions through serial labs. 3. Hypernatremia, hyperchloremia, hypokalemia, and elevated bicarbonate. Resume hypotonic intravenous fluids with D5 water. Follow up with serial electrolytes. I am also repeating her potassium with intravenous potassium. Follow up with BMP and magnesium tomorrow. 4. Chronic anemia, severe protein energy malnutrition, gastroparesis, status post gastric pacemaker in 2012 are currently stable. 5. Disposition. I had contacted [facility] last week. However, they were on diversion. I had a detailed discussion about her clinical condition with a gastroenterology physician at [facility] last week. Apparently, patient was transferred to [facility] for esophageal dilatation in August 2019 and she underwent one dilatation there. Their plan was to have patient follow up outpatient for multiple serial dilatations every 2 weeks. However, patient did not follow up, even for a single appointment, so at this time [facility] suggested the patient should follow up with a local gastroenterology physician where it would be feasible for her to maintain scheduled followups. 6. Today, I called [facility], who is again on diversion. I also called the [facility] in [place] to request a transfer. However, I was told that the patient is not enrolled in the [facility]. I have notified care management team about it. Then I called [facility], who already had 30 patients holding and were not accepting any new patients. I will continue to monitor patient inside [facility]. cc: Clay Still MD
[2019-10-28] MEDS: SODIUM CHLORIDE 0.9% INJ PRN ×2 (12:06→17:15)
--- NOTE | 2019-10-28 19:08 | PROVIDER PROGRESS NOTE ---
Progress Note Subjective: Patient reports some nausea treated with phenergan during the night. She is resting in bed in no acute distress. Objective: temperature 97.2, pulse 79, respirations 17, blood pressure 150/93, 02 sat 100% on room air. General: -Citizen Of [place] female lying in bed in no acute distress HEENT: normocephalic, atraumatic, pupils equal and reactive. Mucous membranes dry. Neck: supple, no JVD. Cardiovascular: S1S2, regular rate and rhythm. No murmurs or gallops noted. Respiratory: clear to auscultation bilaterally Abdomen: soft, nontender, nondistended. Positive bowel sounds present. : not inspected Extremities: no clubbing, cyanosis, or edema noted. Neurological: alert and oriented to person, place, and time. Labs: sodium 167, potassium 2.9, chloride 118, carbon dioxide 33, BUN 7, creatinine 2.5, intake 2639, output 550. Impression: Acute kidney injury with hypernatremia. Her BUN and Creatinine are stable. IFV were changed to D5W by primary. Continue to monitor. I would not stop her IV fluids unless her swallowing status changes. Blood pressure. Stable. Fluid volume. Slightly contracted. Plan as above. Mild hypokalemia. IV potassium replacement ordered by primary. Acid-base balance. In target. Nutrition. Improved. Medication review. d/c lactulose
[2019-10-28] MEDS: LEVSIN-SL SL PRN (21:49)
[2019-10-29] MEDS: PHENERGAN IV PRN ×4 (00:45→18:44)
[2019-10-29] MEDS: D5W 1,000 ML IV SCH ×3 (07:01→14:06)
[2019-10-29] MEDS: HEPARIN SUBQ SCH (09:40)
[2019-10-29] MEDS: DULCOLAX PR SCH (09:40)
[2019-10-29] MEDS: TUMS PO SCH ×3 (09:42→17:16)
[2019-10-29] MEDS: PROTONIX IV SCH (09:42)
[2019-10-29] MEDS: SODIUM CHLORIDE 0.9% INJ SCH (09:46)
[2019-10-29] MEDS ORDERED: CLINIMIX E 4.25%-5% SOLUTION 1,000 ML IV SCH (11:45)
[2019-10-29] MEDS: SODIUM CHLORIDE 0.9% INJ PRN (11:56)
[2019-10-29 12:33] LABS: BASO# 0.02 X1000 (0.0-0.2); BASO% 0.3 % (0.0-0.8); EOS# 0.09 X1000 (0.0-0.7); EOS% 1.1 % (0.0-10.0); HEMATOCRIT 25.7 % (37.0-47.0); HEMOGLOBIN 7.6 g/dL (12.0-16.0); IMM GRAN# 0.03 X1000 (0.0-0.04); IMM GRAN% 0.4 % (0.0-0.5); LYMPH# 2.14 X1000 (1.2-3.4); LYMPH% 27.2 % (20.5-51.1); MCHC 29.6 g/dL (33-37); MCV 91.1 FL (81-99); MONO# 0.52 X1000 (0.11-0.59); MONO% 6.6 % (1.7-9.3); MPV 11.9 FL (7.4-10.4); NEUT# 5.08 X1000 (1.4-6.5); NEUT% 64.4 % (42.2-75.2); PLT 250 X1000 (130-400); RBC 2.82 XMIL (4.2-5.4); RDW 16.2 % (11.5-14.5); WBC 7.88 X1000 (4.8-10.8)
[2019-10-29 12:49] LABS: ALB/GLOB RATIO 1.2; ALBUMIN 2.6 g/dL (3.5-5.0); CALCIUM 7.2 mg/dL (8.8-10.2); CREATININE 2.4 mg/dL (0.5-0.9); DIRECT BILIRUBIN 0.2 mg/dL (0.00-0.20); PHOSPHORUS 2.3 mg/dL (2.7-4.5); TOTAL BILIRUBIN 0.38 mg/dL (0.20-1.00); TOTAL PROTEIN 4.8 g/dL (6.3-8.3)
[2019-10-29] MEDS ORDERED: DILAUDID IV ONE (12:58)
[2019-10-29 12:59] LABS: POTASSIUM 2.3 mmol/L (3.5-5.1)
[2019-10-29] MEDS ORDERED: POTASSIUM CHLORIDE 60 MEQ in NS 500 ML IV ONE (14:00)
[2019-10-29] MEDS ORDERED: MAGNESIUM SULFATE 2 GM/S.W.I. 2 GM/50 ML IVPB IV ONE (15:19)
[2019-10-29 16:28] VITALS: BP 130/82
[2019-10-29] MEDS ORDERED: LIPOSYN 20% 500 ML IV SCH (17:45)
--- NOTE | 2019-10-29 17:55 | PROVIDER PROGRESS NOTE ---
Progress Note Subjective: Patient reports continued nausea treated with phenergan. She is resting in bed in no acute distress. Objective: temperature 98.5, pulse 75, respirations 20, blood pressure 136/81, O2 sat 99% on room air. General: -English female lying in bed in no acute distress HEENT: normocephalic, atraumatic, pupils equal and reactive. Mucous membranes dry. Neck: supple, no JVD. Cardiovascular: S1S2, regular rate and rhythm. Soft systolic murmur. No gallop noted. Respiratory: clear to auscultation bilaterally Abdomen: soft, nontender, nondistended. Positive bowel sounds present. : not inspected Extremities: no clubbing, cyanosis, or edema noted. Neurological: alert and oriented to person, place, and time. Labs: not resulted yet. Impression: Acute kidney injury with hypernatremia. Improving. Continue IV fluids. Blood pressure. Stable. Fluid volume. Slightly contracted. IV fluids in place. Mild hypokalemia. Acid-base balance. In target. Nutrition. Defer to primary. Medication review.
[2019-10-29 19:31] LABS: URINE SOURCE CATH
[2019-10-29 19:40] LABS: BILIRUBIN URINE NEGATIVE (NEGATIVE); BLOOD URINE NEGATIVE (NEGATIVE); COLOR ORANGE; GLUCOSE URINE NEGATIVE (NEGATIVE); KETONE URINE NEGATIVE (NEGATIVE); LEUKOCYTES URINE MODERATE (NEGATIVE); NITRITE URINE NEGATIVE (NEGATIVE); PH URINE 7.5; PROTEIN URINE 30 mg/dL (NEGATIVE); SP GRAVITY URINE 1.012; TURBIDITY URINE HAZY (CLEAR); UROBILINOGEN URINE NORMAL (NORMAL)
[2019-10-29 19:41] LABS: UR EPITHELIAL CELLS <10 /HPF (<10); URINE BACTERIA 3+ /HPF; URINE RBC <10 /HPF (<10)
--- NOTE | 2019-11-01 18:07 | DISCHARGE SUMMARY ---
ADMISSION DATE: 10/17/2019 DISCHARGE DATE: 10/29/2019 FINAL DISCHARGE DIAGNOSES: 1. Recurrent dysphagia secondary to chronic esophageal stenosis with stricture, status post multiple failed balloon dilations. 2. Acute kidney injury on chronic kidney disease stage 3. 3. Hypernatremia. 4. Hypokalemia. 5. Urinary tract infection. 6. Severe protein calorie malnutrition. 7. Diabetic gastroparesis. 8. History of a gastric pacemaker. 9. Poorly controlled insulin-dependent diabetes mellitus. 10. Hypomagnesemia. 11. Anemia of chronic disease. 12. Medical noncompliance CONSULTATIONS: 1. GI consultation with Dr. Haq. 2. Nephrology consultation with Dr. Anders. HOSPITAL COURSE: Ms. Bobby is a 44-year-old female with a history of multiple medical problems who initially presented to the ER at [place] with a chief complaint of dysphagia. The patient has a known history of multiple admissions for dysphagia as a result of chronic esophageal stricture with multiple balloon dilations. The patient was noted to be in acute renal failure with a creatinine of 5.5. As a result, the patient was transferred to [facility] for nephrology and GI consultation. The patient was noted to be hypernatremic, so her fluids were adjusted to D5W. Slowly the patient's renal function improved. She was noted to be retaining urine, so a Green catheter was placed. The patient was noted to have daily electrolyte imbalances and required daily replacement of magnesium and potassium. The case was discussed with the GI specialist, who stated that they were unable to dilate the patient here at [facility] because it would need to be done under fluoroscopy. Numerous attempts were made to try and transfer the patient to either [place] [facility] as well as [facility], and none of those hospitals could accommodate the patient. The [facility] was called, and the case was discussed with the on-call medical doctor, who accepted the patient for transfer to the [facility] on 10/29/2019. The patient was sent via ambulance. cc: Debra Maravilla MD MTDNyasia
== END 2019-10-29 19:53 | disposition short-term general hospital (02) | DRG 682 ==
LOC: P.ED 15:12 → SUATTDRO 21:00 → P.EDIPHOLD 21:00 → P.MEDSURG 10-18 06:42 → 3N 10-20 17:17
PROVIDERS: ATTEND Internal Medicine

== ENCOUNTER 2019-11-16 10:08 | Inpatient (IN) ==
[2019-11-16] MEDS ORDERED: NARCAN IV ONE (10:49)
[2019-11-16 10:58] LABS: ALLEN TEST NO; BE -10.4 mmoll (-3.0-3.0); BLOOD TYPE ARTERIAL; HCO3-(ACT) 16.9 mmoll (20.0-26.0); METHB 0.6 % (0.0-1.5); O2(CT) 9.2 mL/dL (15.0-23.0); O2HB 97.4 % (95.0-99.0); PCO2(98.6) 35 mmHg (35-45); PO2(98.6) 228 mmHg (60-100); SAMPLE BLOOD; SAO2 99.8 % (95.0-100.0); THB 6.3 g/dL (11.5-17.4); pH(98.6) 7.26 (7.35-7.45)
[2019-11-16 10:59] LABS: BASO# 0.04 X1000 (0.0-0.2); BASO% 0.3 % (0.0-0.8); EOS# 0.06 X1000 (0.0-0.7); EOS% 0.4 % (0.0-10.0); HEMATOCRIT 19.3 % (37.0-47.0); HEMOGLOBIN 6.1 g/dL (12.0-16.0); IMM GRAN% 0.6 % (0.0-0.5); LYMPH# 2.78 X1000 (1.2-3.4); LYMPH% 17.6 % (20.5-51.1); MCH 27.2 PG (27-31); MCHC 31.6 g/dL (33-37); MCV 86.2 FL (81-99); MONO# 0.94 X1000 (0.11-0.59); MONO% 5.9 % (1.7-9.3); NEUT# 11.88 X1000 (1.4-6.5); NEUT% 75.2 % (42.2-75.2); PLT 828 X1000 (130-400); RBC 2.24 XMIL (4.2-5.4)
[2019-11-16 10:59] LABS: MODALITY NRB
[2019-11-16 11:02] LABS: URINE SOURCE CATH
[2019-11-16 11:05] LABS: BILIRUBIN URINE NEGATIVE (NEGATIVE); BLOOD URINE NEGATIVE (NEGATIVE); COLOR YELLOW; GLUCOSE URINE 1000 mg/dL (NEGATIVE); KETONE URINE TRACE mg/dL (NEGATIVE); LEUKOCYTES URINE LARGE (NEGATIVE); NITRITE URINE NEGATIVE (NEGATIVE); PH URINE 7.5; PROTEIN URINE 100 mg/dL (NEGATIVE); TURBIDITY URINE CLEAR (CLEAR); UROBILINOGEN URINE NORMAL (NORMAL)
[2019-11-16 11:11] LABS: INR 1.29; PROTIME 16.3 Seconds (11.0-16.0)
[2019-11-16 11:12] LABS: PTT 38.7 Seconds (22.3-41.8)
[2019-11-16 11:14] LABS: ALB/GLOB RATIO 0.8; ALBUMIN 1.7 g/dL (3.5-5.0); CALCIUM 7.1 mg/dL (8.8-10.2); CREATININE 1.8 mg/dL (0.5-0.9); MAGNESIUM 1.4 mg/dL (1.5-2.7); POTASSIUM 3.2 mmol/L (3.5-5.1); TOTAL BILIRUBIN 0.15 mg/dL (0.20-1.00); TOTAL PROTEIN 3.9 g/dL (6.3-8.3)
[2019-11-16 11:18] LABS: UR EPITHELIAL CELLS <10 /HPF (<10); URINE BACTERIA NEGATIVE /HPF; URINE CASTS NONE SEEN; URINE RBC <10 /HPF (<10); URINE WBC TNTC /HPF (<10); URINE YEAST PRESENT
[2019-11-16 11:19] LABS: URINE CRYSTALS NONE SEEN; URINE SMALL ROUND CELLS NONE SEEN
--- NOTE | 2019-11-16 11:20 | Diag Imaging Result Doc PS360 ---
EXAM: CHEST-PORTABLE 11/16/2019 HISTORY: altered TECHNIQUE: AP portable semiupright at 1104 COMMENT: There is a large right pleural effusion. This was not present on 08/12/2020. There is patchy alveolar opacity in the left upper lobe which was also not present on the previous study. There is a Wallstent in the distal esophagus which was not present previously. There is a Port-A-Cath on the left with its tip in the right atrium. The mediastinum is shifted to the left presumably by the pleural effusion. IMPRESSION: 1. Large right pleural effusion with compressive atelectasis and shift the mediastinum. 2. Left upper lobe pneumonia. Electronically signed by aNpoleon Bearden 11/16/2019 11:18 AM
--- NOTE | 2019-11-16 11:28 | Diag Imaging Result Doc PS360 ---
EXAM: CT HEAD W/O CONTRAST 11/16/2019 HISTORY: Head injury TECHNIQUE: This exam was performed using automated exposure control, adjustment of mA or kV according to patient size, and/or use of iterative reconstruction technique. COMMENT: There is no evidence of mass effect, bleed, or abnormal extra-axial fluid collection. There are no previous studies. The calvarium is intact. The visualized paranasal sinuses are clear. There is a small scalp hematoma on the right side of the frontal region. IMPRESSION: No evidence of acute intracranial disease. Electronically signed by Napoleon Bearden 11/16/2019 11:26 AM
[2019-11-16 11:59] LABS: BANDS 1 % (0-1); LYMPHS 14 % (21-51); MONO 1 % (1-9); NRBC 2 % (0-0); SEGS 84 % (42-75)
[2019-11-16] MEDS ORDERED: VANCOMYCIN 1 GM/NS 1 GM/250 ML IVPB IV ONE (12:00)
[2019-11-16] MEDS ORDERED: ZOSYN 3.375 GM in NS 50 ML IV ONE (12:00)
[2019-11-16 12:01] LABS: LARGE PLATELETS 2+; POIKILOCYTOSIS 2+; TARGET CELLS 1+
[2019-11-16] MEDS ORDERED: SODIUM BICARBONATE 8.4% IV ONE (12:23)
[2019-11-16] MEDS ORDERED: MAGNESIUM SULFATE 4 GM/S.W.I. 4 GM/100 ML IVPB IV ONE (12:23)
[2019-11-16 13:00] LABS: UR AMPHETAMINES QUAL NONE DETECTED (NONE DETECT); UR BARBITUATES QUAL NONE DETECTED (NONE DETECT); UR BENZODIAZEPIN QUAL NONE DETECTED (NONE DETECT); UR CANNABINOIDS QUAL NONE DETECTED (NONE DETECT); UR COCAINE QUAL NONE DETECTED (NONE DETECT); UR METHADONE QUAL NONE DETECTED (NONE DETECT); UR OPIATES QUAL NONE DETECTED (NONE DETECT); UR OXYCODONE QUAL PRESUMPTIVE POSITIVE (NONE DETECT); UR PCP QUAL NONE DETECTED (NONE DETECT)
[2019-11-16] MEDS ORDERED: MAGNESIUM SULFATE 2 GM/S.W.I. 2 GM/50 ML IVPB IV PRN (13:03)
[2019-11-16] MEDS ORDERED: D5 NS 1,000 ML IV PRN (13:03)
[2019-11-16] MEDS ORDERED: SODIUM BICARBONATE 8.4% 100 MEQ in STERILE WATER INJ. 500 ML IV PRN (13:03)
[2019-11-16] MEDS ORDERED: SODIUM PHOSPHATE 30 MMOL in D5W 250 ML IV PRN (13:03)
[2019-11-16] MEDS ORDERED: D50W SYRINGE IV PRN (13:03)
[2019-11-16] MEDS ORDERED: COMPAZINE PR PRN (13:03)
[2019-11-16] MEDS ORDERED: POTASSIUM CHLORIDE 40 MEQ/SWI 40 MEQ/100 ML IVPB IV PRN (13:03)
[2019-11-16] MEDS ORDERED: POTASSIUM CHLORIDE 20 MEQ/SWI 20 MEQ/100 ML IVPB IV PRN (13:03)
[2019-11-16] MEDS ORDERED: COMPAZINE IV PRN (13:03)
[2019-11-16] MEDS ORDERED: MAXIPIME 1 GM in NS 50 ML IV SCH (13:15)
[2019-11-16] MEDS ORDERED: HUMULIN R 100 UNIT in NS 100 ML IV SCH (13:15)
[2019-11-16] MEDS ORDERED: LASIX IV ONE (13:17)
[2019-11-16] MEDS ORDERED: NS 500 ML IV ONE (13:17)
[2019-11-16] MEDS ORDERED: ZOFRAN IV PRN (14:07)
--- NOTE | 2019-11-16 14:12 | Diag Imaging Result Doc PS360 ---
EXAM: CT THORAX W/O CONTRAST 11/16/2019 HISTORY: hemoptysis, anemia, r/o pna TECHNIQUE: This exam was performed using automated exposure control, adjustment of mA or kV according to patient size, and/or use of iterative reconstruction technique. COMMENT: The current study is compared with the previous examination of 04/20/2019. There is a large right pleural effusion which was not previously present. Compressive atelectasis is present particularly in the middle and lower lobes. There is a Wallstent in the distal esophagus which was not present previously. This is opacified as is the remainder of the thoracic esophagus. Presumably the esophagus is filled with fluid or other contents. The possibility of aspiration should be considered. There is some pneumomediastinum. There are coarse opacities in the lingula and denser opacity and groundglass opacity in the upper portion of the upper lobe. There are also coarse opacities in the left lower lobe. These findings were also not present previously. There is gas under the right hemidiaphragm. This was not present previously. There has been cholecystectomy which was present at the time the previous study. There is generalized anasarca with subcutaneous edema. The regional skeleton is intact. IMPRESSION: 1. Pneumomediastinum and pneumo peritoneum which is probably a result of perforation of the distal esophagus. By history this was previously demonstrated in [place] at the [facility]. It is not clear if these all stent which is present in the distal esophagus is patent as there is fluid throughout the thoracic esophagus. The possibility of aspiration cannot be excluded. 2. Atelectasis in the right lung due to large right pleural effusion, pneumonia on the left. Electronically signed by Napoleon Bearden 11/16/2019 2:09 PM
[2019-11-16] MEDS: MERREM 500 MG in NS 50 ML IV SCH ×2 (14:40→23:19)
[2019-11-16] MEDS: NS 1,000 ML IV SCH (14:40)
--- NOTE | 2019-11-16 15:33 | HISTORY AND PHYSICAL ---
PRIMARY CARE PROVIDER: [facility]. CHIEF COMPLAINT: Per ED records unresponsive with blood sugars in the 400s. HPI: Ms. Bobby is a 44-year-old female well known to our service, multiple admissions for recurrent dysphagia secondary to chronic esophageal stenosis with stricture status post multiple failed balloon dilatations, was sent to the [facility] and it looks like she was supposed to have a gastrectomy and ended up her perforating her esophagus and was sent home unknown how long ago per 3rd libertarian report, family states that she had been doing well then she was found unresponsive with blood sugars in the 400s. There is a question of maybe overdoing her pain medication, they did give her some Narcan without any response, poorly-controlled insulin-dependent diabetes mellitus she apparently appears to be in DKA however we did not have the full workup back yet. She was initiated on the DKA protocol. We have consulted GI and after CT imaging she has a pneumomediastinum and a pneumoperitoneum which is probably a result of her perforation of the distal esophagus at the [facility] as well as a large left pleural effusion and a left pneumonia, she is being transferred to the ICU for further treatment and evaluation initiated on broad-spectrum antibiotics with Zyvox and Merrem. PAST MEDICAL HISTORY: 1. Uncontrolled insulin-dependent diabetes mellitus, dysphagia with esophageal stricture status post multiple failed dilatations and a perforated esophagus, patient was supposed to have a gastrectomy done at the [facility] on her last discharge at the end of October. 2. Intractable nausea and vomiting secondary to gastroparesis and noncompliance. 3. Anemia. 4. Chronic kidney disease. PAST SURGICAL HISTORY: Cholecystectomy, prior PEG tube placement with removal, gastric pacemaker, Port-A-Cath placement. SOCIAL HISTORY: In the past denied any alcohol, tobacco or illicit drug use. ALLERGIES: No known drug allergies. MEDICATIONS: Home medications are being compiled. FAMILY HISTORY: Positive for diabetes and hypertension. REVIEW OF SYSTEMS: Unable to obtain secondary to the patient being somewhat obtunded. She does moan to painful stimuli. PHYSICAL EXAM: VITAL SIGNS: Ms. Bobby is a 44-year-old female who is lying on the bed in the ICU not following any commands or answering questions. She does respond to painful stimuli. Temperature is 98 degrees, heart rate 94, respiratory 16, blood pressure 100/68, O2 is 100% on nonrebreather. HEENT: Atraumatic, normocephalic. PERRL. NECK: Supple, trachea midline. CARDIOVASCULAR: S1, S2 appreciated. No murmurs, gallops or rubs noted. RESPIRATORY: Lung sounds decreased airway entry throughout all lung bashir. ABDOMEN: Appeared to be soft, nontender, nondistended. Positive bowel sounds. EXTREMITIES: Lower extremity negative for edema. Bilateral pedal pulses were palpable. NEURO: Again patient is somewhat obtunded, she does not answer questions or follow commands but she does moan and responds to painful stimuli. DIAGNOSTIC DATA: Chest CT pneumomediastinum and pneumoperitoneum probably result perforation at the distal esophagus. There is a stent present in the distal esophagus that is patent. There is fluid throughout the thoracic esophagus possibility of aspiration could not be excluded, atelectasis in the right lung due to a large right pleural effusion, pneumonia on the left. Head CT no evidence of acute intracranial disease. LABORATORY DATA: White count 15, hemoglobin and hematocrit 6 and 19, platelet count 828,000. ABG pH 7.26, pCO2 35, PO2 228, bicarb 16.9, O2 is 99% on a nonrebreather. Sodium 139, potassium 3.2, anion gap is 15, BUN 15, creatinine 1.8, blood glucose is 317, magnesium 1.4, plasma lactate is 2, acetone negative, she is positive for oxycodone. Urinalysis shows too numerous to count WBCs, large leukocytes, negative for bacteria, negative for nitrites. ASSESSMENT AND PLAN: 1. Altered mental status multifactorial, could be infectious as well as toxic however she did not respond to Narcan that had been given. Head CT did not show anything acute. Continue monitor her neuro status closely, address her infectious processes. 2. Initially presumed diabetic ketoacidosis. She was initiated on the diabetic ketoacidosis protocol. She was hyperglycemic with a small anion gap, she should be able to come off the DKA protocol pretty quickly however she is dehydrated. Will need to continue with IV fluids. 3. Pneumomediastinum and pneumoperitoneum probably the result of perforation of the distal esophagus, she does show a patent stent. Will consult GI as well as general surgery. 4. Large left pleural effusion. Consult general surgery. 5. Left-sided pneumonia hospital-acquired. Will continue with broad-spectrum antibiotics. 6. Acute kidney injury on chronic kidney disease. 7. Multiple electrolyte abnormalities, hypokalemia, hypomagnesium can be addressed on the DKA protocol, protein calorie malnutrition. 8. Anemia. Hemoglobin and hematocrit is 6 and 19, will go and transfuse 2 units of blood. 9. Thrombocytosis. Continue with aggressive IV hydration, recheck a platelet count in a.m. 10. Further recommendation to follow physician evaluation, laboratory and diagnostic data. Dictated by NELL Jules for Clyde Dominguez MD ADDENDUM: after review of chest CT Dr. Rivas called and spoke with [facility] in [place] and the patient will be transferred to their care. Addendum: Patient seen and examined by myself. Agree with HONING MACHINE OPERATOR SEMIAUTOMATIC note. It reflects my assessment and plan. Patient is being admitted to hospital for conditions mentioned above. We spent 60 minutes of critical care, and coordinating her transfer to [facility] in [place]. cc: Isaiah Rutherford MD MTDD
[2019-11-16] MEDS: POTASSIUM CHLORIDE 20 MEQ/SWI 20 MEQ/100 ML IVPB IV PRN ×2 (16:53→23:13)
--- NOTE | 2019-11-16 18:32 | GENERAL SURGERY CONSULTATION ---
DATE: 11/16/2019 Ms. Bobby is a 44-year-old female who is brought in unresponsive and felt to be in DKA. Imaging shows a large right pleural effusion with some mediastinal shift. Her history apparently is one of long-term esophageal stenosis that was treated in [place]. I do not know if there was an attempted dilatation with balloon, it ultimately resulted in the esophageal tear thereby necessitating an esophageal stent or not. She has an esophageal stent that is relatively new. According to her mother, in the past few days she had increasing pain in her mediastinum. Today she was unresponsive. They brought her in. Imaging shows a large right pleural effusion and evidence of a distal esophageal stent. Her other medical problems include chronic kidney disease, anemia and the insulin-dependent diabetes is poorly controlled. Her previous surgery includes a cholecystectomy, a PEG tube placement, gastric pacemaker and a Port-A- Cath which is on the left side. MEDICATIONS AT HOME: I am not sure but she has Levsin, Zofran, and Protonix. ALLERGIES: She has no known drug allergies. FAMILY HISTORY: Pertinent for diabetes and hypertension. SOCIAL HISTORY: She apparently in the past has denied alcohol, tobacco and illicit drug usage. REVIEW OF SYSTEMS: Cannot be obtained due to the patient's mental status. PHYSICAL EXAMINATION: She is afebrile. Heart rate is 90, blood pressure is 92/79. She has oxygen mask nonrebreather mask. She has diminished breath sounds on the right. Heart: Regular rate and rhythm. Abdomen: Soft. Scars are noted. She does not respond except to noxious stimuli. LABORATORY: Reveals a white count of 15,800, hemoglobin 6.1, hematocrit 19, pH 7.26, pCO2 35, PO2 228, base excess is -10. Lactate is 1.2, BUN 15, creatinine 1.8. ASSESSMENT: Large right pleural effusion of uncertain etiology. We will place a right chest tube to evacuate the fluid and hopefully allow her to normalize her mediastinum. Whatever pneumomediastinum she has could certainly be from a esophageal tear. I have spoken with her family about placing a chest tube. They understand and agree to proceed. cc: Isaiah Rutherford MD
--- NOTE | 2019-11-16 18:54 | Diag Imaging Result Doc PS360 ---
EXAM: CHEST-PORTABLE 11/16/2019 HISTORY: Chest tube placement TECHNIQUE: AP portable at 1832 COMMENT: Compared to 11/16/2019 there has been evacuation of the pleural effusion on the right by chest tube. There is still considerable alveolar opacity in the left upper lobe which is in fact slightly worse than on the previous study at 1104. IMPRESSION: Evacuation of right pleural effusion. Left upper lobe pneumonia. Electronically signed by Napoleon Bearden 11/16/2019 6:51 PM
[2019-11-16 19:06] LABS: BILIRUBIN URINE NEGATIVE (NEGATIVE); BLOOD URINE NEGATIVE (NEGATIVE); COLOR YELLOW; GLUCOSE URINE 500 mg/dL (NEGATIVE); KETONE URINE TRACE mg/dL (NEGATIVE); LEUKOCYTES URINE LARGE (NEGATIVE); NITRITE URINE NEGATIVE (NEGATIVE); PH URINE 6.5; PROTEIN URINE 70 mg/dL (NEGATIVE); SP GRAVITY URINE 1.018; TURBIDITY URINE HAZY (CLEAR); URINE SOURCE CATH; UROBILINOGEN URINE NORMAL (NORMAL)
[2019-11-16 19:13] LABS: UR EPITHELIAL CELLS <10 /HPF (<10); URINE BACTERIA NEGATIVE /HPF; URINE RBC <10 /HPF (<10); URINE WBC TNTC /HPF (<10)
[2019-11-16 19:16] LABS: URINE CASTS NONE SEEN; URINE CRYSTALS NONE SEEN; URINE SMALL ROUND CELLS TRANS PRESENT; URINE YEAST PRESENT
--- NOTE | 2019-11-16 20:41 | OPERATIVE NOTE ---
PROCEDURE DATE: 11/16/2019 PROCEDURE: Right chest tube placement. SURGEON: Isaiah Rutherford MD. PREOPERATIVE DIAGNOSIS: Large right pleural effusion. POSTOP DIAGNOSIS: Large right pleural effusion. DESCRIPTION OF PROCEDURE: The patient was obtunded. The right anterior lateral chest was prepped and draped in a sterile fashion. We anesthetized skin with 1% lidocaine in the skin, subcutaneous tissue and down to the pleura. We made an incision and carried our incision into the pleural space. We digitally entered the pleural space, introduced a 28 trocar chest tube without difficulty. The chest tube was secured with a 0 silk stitch. It was attached to the Pleur-evac and 1100 mL of yellow serous minimally turbid fluid was evacuated. She tolerated it well. A sterile dressing was applied. It was attached to suction. A chest x-ray was ordered. cc: Isaiah Rutherford MD
[2019-11-17 00:55] VITALS: BP 114/89
[2019-11-17] MEDS ORDERED: ZYVOX 600 MG/D5W 600 MG/300 ML IVPB IV SCH (01:00)
[2019-11-17] MEDS: NS 1,000 ML IV SCH (03:09)
--- NOTE | 2019-11-18 13:40 | DISCHARGE SUMMARY ---
ADMISSION DATE: 11/16/2019 DISCHARGE DATE: 11/17/2019 HISTORY OF PRESENT ILLNESS: Please refer to history and physical for more details about this patient. This patient has been discharged just a few hours after she has been admitted for the following diagnoses: 1. Altered mental status. 2. Diabetic ketoacidosis. 3. Pneumoperitoneum probably because of result of perforation of the distal esophagus. 4. Large left pleural effusion. 5. Left-sided pneumonia, hospital-acquired. 6. Acute kidney injury. 7. Multiple electrolyte abnormalities. 8. Anemia of blood loss. 9. Thrombocytosis. HOSPITAL COURSE: In brief, this patient was admitted to the hospital because of the conditions mentioned above. Unfortunately, because of those problems, we decided that we need to send this patient back to [facility] in [place] because the dilatation and placement of stent of the esophagus was done over there. We talked with the hospital and they decided to admit this patient in the intensive care unit. Upon our final evaluation, patient was ready to go to that hospital. Before the patient left, Dr. Rutherford from General Surgery performed chest tube placement considering the pneumothorax and the fluids as well. Patient is going to be discharged to [facility] in [place]. cc: Clyde Dominguez MD
--- NOTE | 2019-11-20 10:13 | PROVIDER DOCUMENTATION ---
This chart was entered by Leola Salazar Scribe, acting as scribe for Ghassan Barreto MD. HPI-General Adult - General Stated Complaint: OD, DKA Time Seen by Provider: 11/16/19 10:24 Source: patient, EMS, old records Allergies/Adverse Reactions: Patient Allergies Allergy/AdvReac Type Severity Reaction Status Date / Time No Known Allergies Allergy Verified 11/16/19 10:58 Home Medications: Home Medication List Medication Instructions Recorded Confirmed Last Taken Type Hyoscyamine Subl [Levsin-Sl] 0.25 mg SUBLINGUAL 4XDAY PRN PRN 10/29/19 11/16/19 1 Day Ago Rx tab ~11/15/19 Ondansetron [Zofran] 4 mg IV Q4-6H PRN PRN vial 10/29/19 11/16/19 1 Day Ago Rx ~11/15/19 Pantoprazole [Protonix] 40 mg IV Q12H vial 10/29/19 11/16/19 1 Day Ago Rx ~11/15/19 - History of Present Illness -Gen Adult Nature of Presenting Problems: female presents to the ED via EMS unresponsive. EMS states blood sugar in the 400's in the field, 285 here without intervention. EMS states history of the patient using liquid Oxycontin the past couple of days with history of diabetes and gastroparesis. Location of Pain/Injury: reports: generalized Onset/Duration: reports: unsure Timing: reports: still present Similar Symptoms Previously?: No Review of Systems - Adult - REVIEW OF SYSTEMS - ADULT ROS:: unobtainable per condition (The patient is unresponsive) Constitutional: reports: no symptoms reported Past History - Adult - PAST MEDICAL HISTORY-ADULT Review of Records: reports: Old Records Reviewed Physical Exam-General - PHYSICAL EXAM-ADULT Initial Vital Signs Reviewed: Yes - CONSTITUTIONAL General Appearance: other (unresponsive, does not respond to innoculous stimulation) - EYES Eyes: other (dysconjugate gaze) - RESPIRATORY Respiratory: other (abdominal rocking) - SKIN Integumentary: negative: diaphoresis Progress - PLAN OF CARE/RESULTS Progress/Plan/Lab Results: 1109: Mother is now in the room and reports recent visit to [facility] last week for EGD with perforated esophagus during the procedure and some type of stent placement. Son states the patient's mental state was normal after this visit and has slowly swindled since that time. Result Diagrams: 11/16/19 10:31 11/16/19 10:31 - EKG 1 Time of EKG reading by physician:: 10:18 EKG Read and Signed by:: Ghassan Barreto EKG Interpretation (*Must complete 3 of following elements*): Abnormal Rate: 105 Rhythm: sinus tachycardia [place]: normal Comments: nonspecific T wave abnormality - XRAY 1 XRAY Study: Chest (EXAM: CHEST-PORTABLE 11/16/2019 HISTORY: altered TECHNIQUE: AP portable semiupright at 1104 COMMENT: There is a large right pleural effusion. This was not present on 08/12/2020. There is patchy alveolar opacity in the left upper lobe which was also not present on the previous study. There is a Wallstent in the distal esophagus which was not present previously. There is a Port-A-Cath on the left with its tip in the right atrium. The mediastinum is shifted to the left presumably by the pleural effusion. IMPRESSION: 1. Large right pleural effusion with compressive atelectasis and shift the mediastinum. 2. Left upper lobe pneumonia. Electronically signed by Napoleon Bearden 11/16/2019 11:18 AM) Impression: Abnormal - CT/MRI 1 CT Study: Head (EXAM: CT HEAD W/O CONTRAST 11/16/2019 HISTORY: Head injury TECHNIQUE: This exam was performed using automated exposure control, adjustment of mA or kV according to patient size, and/or use of iterative reconstruction technique. COMMENT: There is no evidence of mass effect, bleed, or abnormal extra-axial fluid collection. There are no previous studies. The calvarium is intact. The visualized paranasal sinuses are clear. There is a small scalp hematoma on the right side of the frontal region. IMPRESSION: No evidence of acute intracranial disease. Electronically signed by Napoleon Bearden 11/16/2019 11:26 AM) Impression: See EMR Report - CONSULTS/PCP/HOSPITALIST Notification #1 *Consult/PCP/Hospitalist*: Bairon Perezist Time Discussed: 12:43 Reason/Comments: DKA, pneumonia, pleural effusion Consult Disposition: Admit (Dr. Rivas) Departure - Departure Date of Disposition Decision: 11/16/19 Time of Disposition Decision: 12:46 DIAGNOSIS: DKA (diabetic ketoacidoses), Pneumonia, Pleural effusion Disposition: ADMITTED INPATIENT 09 Certified Medical Emergency: Urgent Condition: Stable - Critical Care Note This patient required my direct & personal management of CC.: Yes Total Time (mins): 33 Critical Care Statement: This patient required my direct personal management to treat or rule out processes, the absence of which, could potentiallly result in sudden, clinically significant life or limb threatening deterioration. Attestation - Physician/ GAUDENCIO Attestation Patient care was provided by Advanced Practice Provider:: No The physician spent face to face time with patient:: Yes Advanced Practice Provider documentation review:: Supervising physician onsite and consulted in the evaluation and care of this patient. The physician did have a face to face encounter with the patient. This chart was documented by the indicated scribe, (Leola Salazar, Gonzalo) and accurately reflects the services I performed and decisions made by me, Ghassan Barreto MD, as attested by the provider's signature.
== END 2019-11-17 00:20 | disposition short-term general hospital (02) | DRG 186 ==
LOC: ED 10:08 → ICU 13:21
PROVIDERS: ATTEND Internal Medicine